=== PATIENT | male | born 1930 | race Caucasian/White ===

== ENCOUNTER 2016-11-01 11:15 | Inpatient (IN) | payer MEDICARE, MEDICAID ==
[2016-11-01] VITALS (17 sets, daily range): BP systolic 90–235; BP diastolic 43–101; PULSE 60–137; RESP 12–18; TEMP 97.9–102.4; O2SAT 86–100
[~2016-11-01] VITALS: Ht 180.3 cm; Wt 93.3 kg
[~2016-11-01 11:15] MED LIST: ALPR.25 PO; ALPR0.25 PO; BISA10R PR; CINN500C7 PO; DIGECAP6 PO; DUONI NEB; FEXO3TAB PO; FLEEENE3 PR; LISI-360 PO; MAGN30S PO; MELA3TAB23 PO; NORC10TA2 PO; PROT40TA PO; SERT25TA83 PO
[2016-11-01] MEDS ORDERED: SODIUM CHLOR 0.9% 1000 ML INJ 1,000 ML IV SCH (11:39)
[2016-11-01] MEDS ORDERED: SODIUM CHLORIDE 0.9% FLUSH 5 ML FLUSH IVF PRN (11:45)
[2016-11-01] MEDS ORDERED: ETOMIDATE 20 MG/10 ML VIAL ONE (11:57)
[2016-11-01] MEDS ORDERED: SUCCINYLCHOLINE CHLORIDE 200 MG/10 ML VIAL ONE (11:58)
[2016-11-01 12:15] LABS: AUTOMATED NEUTROPHIL # 21.5 TH/MM3 (1.8-7.7); BASOPHIL # 0.1 TH/MM3 (0-0.2); BASOPHIL % 0.2 % (0.0-2.0); HEMATOCRIT 50.5 % (39.0-51.0); HEMO FLAGS DIFF FINAL; LYMPH % 8.3 % (9.0-44.0); MEAN CELL VOLUME 97.9 FL (80.0-100.0); MEAN CORPUSCULAR HEMOGLOBIN 31.1 PG (27.0-34.0); MEAN CORPUSCULAR HGB CONC 31.8 % (32.0-36.0); MONO % 3.3 % (0.0-8.0); NEUT % 88.2 % (16.0-70.0); PLATELET COUNT 237 TH/MM3 (150-450); RED BLOOD COUNT 5.16 MIL/MM3 (4.50-5.90); RED CELL DISTRIBUTION WIDTH 16.2 % (11.6-17.2); WHITE BLOOD COUNT 24.4 TH/MM3 (4.0-11.0)
[2016-11-01] MEDS ORDERED: ETOMIDATE 20 MG/10 ML VIAL IV PUSH ONE (12:15)
[2016-11-01] MEDS ORDERED: SUCCINYLCHOLINE CHLORIDE 200 MG/10 ML VIAL IV PUSH ONE (12:15)
--- NOTE | 2016-11-01 12:20 | PD ---
HPI Chief Complaint: Altered Mental Status Time Seen by Provider: 11:37 Travel History International Travel<30 days: No Contact w/Intl Traveler<30days: No Traveled to known affect area: No History of Present Illness HPI 86yo M with PMH of alzheimer's dementia, SDH, DM, presents from [facility] [employer] for a few days of altered mental status and respiratory distress. As per who wants full code and everything done, pt has been having diarrhea and the assisted has not been taking care of him. States they took CXR yesterday and states he has pneumonia and started him on antibiotics. States that he normally talks and even though he has dementia, he is alert and have conversations with her. PFSH Past Medical History Hx Anticoagulant Therapy: Yes Alzheimer's Disease: Yes Arthritis: Yes Anxiety: Yes Heart Rhythm Problems: Yes (remote afib) Cancer: No Cardiovascular Problems: Yes (ATHEROSCLEROTIC HEART DISEASE, A-FIB ) High Cholesterol: No Chest Pain: No Congestive Heart Failure: No Cerebrovascular Accident: No Dementia: Yes Diabetes: Yes (TYPE 2) Endocrine: No Gastrointestinal Disorders: No Genitourinary: Yes Hypertension: Yes Immune Disorder: No Implanted Vascular Access Dvce: No Kidney Stones: Yes (possible) Musculoskeletal: Yes Psychiatric: Yes (dementia) Reproductive: No Respiratory: No Renal Failure: No Sickle Cell Disease: No Past Surgical History Abdominal Surgery: Yes (appendectomy) Appendectomy: Yes Ear Surgery: No Endocrine Surgery: No Eye Surgery: Yes (cataract) Genitourinary Surgery: Yes (TURP; ) Gynecologic Surgery: No Neurologic Surgery: No Oral Surgery: No Thoracic Surgery: No Other Surgery: Yes (appendectomy, TURP,RIGHT CAROTID ENDARTERECTOMY) Social History Alcohol Use: No Tobacco Use: No Substance Use: No Allergies-Medications (Allergen,Severity, Reaction): Coded Allergies: Ativan (Unverified Allergy, Severe, 11/01/16) Bactrim (Verified Allergy, Severe, hives, 11/01/16) Levaquin (Verified Allergy, Severe, 11/01/16) Morphine (Unverified Allergy, Severe, 11/01/16) Penicillin (Unverified Allergy, Severe, 11/01/16) Tuna (Unverified Allergy, Severe, 11/01/16) Hydrocortisone (Verified Allergy, Unknown, UNKNOWN, 11/01/16) Saccharin (Verified Allergy, Unknown, UNKNOWN , 11/01/16) Reported Meds & Prescriptions Reported Meds & Active Scripts Active Reported Milk of Magnesia Liq (Magnesium Hydroxide) 400 Mg/5 Ml Susp 30 Ml PO DAILY PRN Fleet Enema Rectal (Sodium Phosphates Rectal) 7-19 Gm/118 Ml Enem 118 Ml RECTAL DAILY PRN Digestive Enzyme (Digestive Enzymes) 1 Cap Cap 1 Cap PO TID Albuterol Neb (Albuterol Sulfate) 2.5 Mg/3 Ml Neb 2.5 Mg NEB Q4HR NEB While awake Cinnamon 500 Mg Cap 1,000 Mg PO TID Sertraline (Sertraline HCl) 50 Mg Tab 50 Mg PO BID Nuedexta 20-10 mg (Dextromethorphan HBr-Quinidine) 1 Cap Cap 1 Cap PO BID Donepezil 10 Mg Tab 10 Mg PO BID Melatonin 5 Mg Tab 3 Mg PO DAILY Lisinopril 10 Mg Tab 10 Mg PO DAILY Alprazolam 0.25 Mg Tab 0.25 Mg PO DAILY PRN Review of Systems Except as stated in HPI: all other systems reviewed are Neg Physical Exam Narrative GENERAL: 86yo M in acute distress. SKIN: Warm and dry. HEAD: Atraumatic. Normocephalic. EYES: Pupils equal and round. No scleral icterus. No injection or drainage. ENT: No nasal bleeding or discharge. Mucous membranes pink and moist. NECK: Trachea midline. No JVD. CARDIOVASCULAR: Tachycardic at 100bpm. No murmur appreciated. RESPIRATORY: Coarse breath sounds bilaterally. +Tachypneic. Saturating at 92% on 6L NC. GASTROINTESTINAL: Abdomen soft, non-tender, nondistended. Hepatic and splenic margins not palpable. MUSCULOSKELETAL: No obvious deformities. No clubbing. No cyanosis. No edema. NEUROLOGICAL: Pt attempts to speak but cannot verbalize words, cannot open eyes or lift his extremities. Withdraws from pain in bilateral lower ext. Attempts to squeeze hands bilaterally. Data Data Last Documented VS Vital Signs Date Time Temp Pulse Resp B/P Pulse Ox O2 Delivery O2 Flow Rate FiO2 11/01/16 13:00 102 12 104/64 97 Ventilator 60 11/01/16 12:00 102.4 6 Orders Electrocardiogram (11/01/16 ) Ammonia (11/01/16 11:39) Basic Metabolic Panel (Bmp) (11/01/16 11:39) Complete Blood Count With Diff (11/01/16 11:39) Creatine Kinase (Cpk) (11/01/16 11:39) Prothrombin Time / Inr (Pt) (11/01/16 11:39) Act Partial Throm Time (Ptt) (11/01/16 11:39) Troponin I (11/01/16 11:39) Thyroid Stimulating Hormone (11/01/16 11:39) Lactic Acid Sepsis Protocol (11/01/16 11:39) Urinalysis - C+S If Indicated (11/01/16 11:39) Arterial Blood Gas (Abg) (11/01/16 11:39) Blood Culture (11/01/16 11:39) Chest, Single Ap (11/01/16 11:39) Ct Brain W/O Iv Contrast(Rout) (11/01/16 11:39) Blood Glucose (11/01/16 11:39) Ecg Monitoring (11/01/16 11:39) Iv Access Insert/Monitor (11/01/16 11:39) Oximetry (11/01/16 11:39) Sodium Chloride 0.9% Flush (Ns Flush) (11/01/16 11:45) Sodium Chlor 0.9% 1000 Ml Inj (Ns 1000 M (11/01/16 11:39) Etomidate Inj (Amidate Inj) (11/01/16 11:57) Succinylcholine Inj (Quelicin Inj) (11/01/16 11:58) Etomidate Inj (Amidate Inj) (11/01/16 12:15) Succinylcholine Inj (Quelicin Inj) (11/01/16 12:15) Vancomycin Inj (Vancomycin Inj) (11/01/16 12:30) Aztreonam Inj (Azactam Inj) (11/01/16 12:30) Acetaminophen Supp (Tylenol Supp) (11/01/16 12:30) Chest, Single Ap (11/01/16 ) Propofol 1000 Mg/100 Ml Inj (Diprivan 10 (11/01/16 12:43) Consult Vascular Access Team (11/01/16 ) Sodium Chlor 0.9% 1000 Ml Inj (Ns 1000 M (11/01/16 13:00) Potassium Chloride (Kcl) (11/01/16 13:00) Potassium Chlor 20 Meq Premix (Kcl 20 Me (11/01/16 13:00) CKMB (11/01/16 12:00) CKMB% (11/01/16 12:00) Admit Order (Ed Use Only) (11/01/16 13:27) Labs Laboratory Tests Test 11/01/16 11/01/16 12:00 13:20 White Blood Count 24.4 TH/MM3 Red Blood Count 5.16 MIL/MM3 Hemoglobin 16.0 GM/DL Hematocrit 50.5 % Mean Corpuscular Volume 97.9 FL Mean Corpuscular Hemoglobin 31.1 PG Mean Corpuscular Hemoglobin 31.8 % Concent Red Cell Distribution Width 16.2 % Platelet Count 237 TH/MM3 Mean Platelet Volume 11.6 FL Neutrophils (%) (Auto) 88.2 % Lymphocytes (%) (Auto) 8.3 % Monocytes (%) (Auto) 3.3 % Eosinophils (%) (Auto) 0.0 % Basophils (%) (Auto) 0.2 % Neutrophils # (Auto) 21.5 TH/MM3 Lymphocytes # (Auto) 2.0 TH/MM3 Monocytes # (Auto) 0.8 TH/MM3 Eosinophils # (Auto) 0.0 TH/MM3 Basophils # (Auto) 0.1 TH/MM3 CBC Comment DIFF FINAL Differential Comment Sodium Level 174 MEQ/L Potassium Level 2.6 MEQ/L Chloride Level 142 MEQ/L Carbon Dioxide Level 20.9 MEQ/L Anion Gap 11 MEQ/L Blood Urea Nitrogen 102 MG/DL Creatinine 4.24 MG/DL Estimat Glomerular Filtration 13 ML/MIN Rate Random Glucose 210 MG/DL Lactic Acid Level 3.6 mmol/L Calcium Level 8.9 MG/DL Ammonia LESS THAN 10 MCMOL/L Total Creatine Kinase 1552 U/L Creatine Kinase MB 4.4 NG/ML Creatine Kinase MB % 0.3 % Troponin I 0.75 NG/ML Thyroid Stimulating Hormone 0.866 uIU/ML 3rd Gen Urine Color YELLOW Urine Turbidity HAZY Urine pH 5.5 Urine Specific [place] 1.020 Urine Protein 30 mg/dL Urine Glucose (UA) NEG mg/dL Urine Ketones NEG mg/dL Urine Occult Blood MOD Urine Nitrite NEG Urine Bilirubin NEG Urine Urobilinogen LESS THAN 2.0 MG/DL Urine Leukocyte Esterase NEG Urine RBC 2 /hpf Urine WBC 3 /hpf Urine Squamous Epithelial 2 /hpf Cells Urine Amorphous Sediment FEW Urine Bacteria OCC /hpf Urine Hyaline Casts 26 /lpf Urine Granular Casts 1 /lpf Urine Mucus FEW /lpf Microscopic Urinalysis Comment CATH-CULTURE IND Urine Eosinophils NONE SEEN /HPF Urine Osmolality 546 MOSM/KG Urine Random Creatinine 278.7 MG/DL Urine Random Sodium 18 MEQ/L MDM Medical Decision Making Medical Screen Exam Complete: Yes Emergency Medical Condition: Yes Interpretation(s) EKG: NSR 99bpm. Normal axis. +frequent PVCs. ST depression diffusely. +ST elevation aVR. Differential Diagnosis Dehydration vs. sepsis secondary to pneumonia vs. UTI vs. electrolyte abnormality vs. ICH Narrative Course 86yo M from assisted with altered mental status and respiratory distress. Pt febrile, tachycardic and appears very dehydrated. Temperature is 101.4. HR 100. Pt saturating at 92% on 6L NC. Pt is not following commands. is at bedside and states she wants everything done including endotracheal intubation. Pt cannot protect his airway at this time and intubated with RSI. Labs reviewed, leukocytosis at 24.4. Na is elevated at 174 likely secondary to dehydration. K is 2.6. Troponin is elevated at 0.75. EKG does show STD and T wave inversions. It can also be elevated secondary to sepsis. However, EKG is concerning for ischemic changes. CPK is 1552. Creatinine is acutely elevated at 4.24 secondary to rhabdomyolysis and dehydration. Pt given vancomycin and aztreonam empirically. Pt also received acetaminophen 650mg rectally and KCl 60mEq KCl by OG tube and 20mEq KCl IV, as well as NS IVF x2. Discussed with Dr. Hirsch and accepted to ICU. CXR showed left lower lobe. Critical Care Narrative Aggregate critical care time was 75 minutes. Time to perform other separately billable procedures was not included in the critical care time. My time did not include minutes spent treating any other patients simultaneously or on activities that did not directly contribute to the patient's treatment. The services I provided to this patient were to treat and/or prevent clinically significant deterioration that could result in: cardiovascular collapse and . I provided critical care services requiring my management, as noted below: Chart data review, documentation time, medication orders and management, vital sign assessments/reviewing monitor data, ordering and reviewing lab tests, ordering and interpreting/reviewing x-rays and diagnostic studies, care of the patient and discussion of the patient with the admitting physicians. Procedures Procedure Narrative The patient was put in optimal position for the procedure. Rapid sequence intubation was initiated by me using 20 milligrams of etomidate IV and 100milligrams of succinylcholine IV. The patient was intubated with a 8.0 cuffed endotracheal tube. Tube placement was confirmed by visualization of the tube and balloon passing through the cords, capnometry and subsequent chest x-ray. Breath sounds were equal and well aerated bilaterally postintubation. No breath sounds over stomach. Patient tolerated procedure well. Diagnosis Primary Impression: Hypernatremia Additional Impression: NAYE (acute kidney injury) Admitting Information Admitting Physician Requests: Admit Omayra Yang DO Nov 01, 2016 12:20
[2016-11-01] MEDS ORDERED: VANCOMYCIN INJ 1,100 MG in SODIUM CHLOR 0.9% 250 ML INJ 250 ML IV ONE (12:30)
[2016-11-01] MEDS ORDERED: ACETAMINOPHEN 650 MG SUPP RECTAL ONE (12:30)
[2016-11-01] MEDS ORDERED: AZTREONAM INJ 1,000 MG in SODIUM CHLORIDE 0.9% INJ 100 ML IV ONE (12:30)
[2016-11-01] MEDS ORDERED: PROPOFOL 1000 MG/100 ML INJ 100 ML ONE (12:43)
[2016-11-01 12:45] LABS: BICARBONATE 20.9 MEQ/L (21.0-32.0)
--- NOTE | 2016-11-01 12:47 | RADRPT ---
EXAM DATE/TIME: 11/01/2016 12:09 [facility] COMPARISON: CHEST SINGLE AP, April 18, 2015, 11:30. INDICATIONS : Shortness of breath. MEDICAL HISTORY : Hypertension. Myocardial infarction. A-fib SURGICAL HISTORY : Coronary artery stent. ENCOUNTER: Initial ACUITY: 2 days PAIN SCORE: Non-responsive. LOCATION: Bilateral chest FINDINGS: A single view of the chest demonstrates left retrocardiac infiltrate. Right lung clear. Heart normal in size. Osseous structures are intact. CONCLUSION: Left lower lobe/perihilar infiltrate. Chao Hensley MD on November 01, 2016 at 12:44 Board Certified Radiologist. This report was verified electronically.
[2016-11-01 12:50] LABS: POTASSIUM 2.6 MEQ/L (3.5-5.1)
[2016-11-01] MEDS ORDERED: SODIUM CHLOR 0.9% 1000 ML INJ 1,000 ML IV ONE ×3 (13:00→18:45)
[2016-11-01] MEDS ORDERED: POTASSIUM CHLOR 20 MEQ PREMIX 100 ML IV ONE (13:00)
[2016-11-01] MEDS ORDERED: POTASSIUM CHLORIDE 20 MEQ CONTROLLED RELEASE TAB PO ONE (13:00)
--- NOTE | 2016-11-01 13:07 | RADRPT ---
EXAM DATE/TIME: 11/01/2016 12:39 [facility] COMPARISON: CHEST SINGLE AP, November 01, 2016, 12:09. INDICATIONS : Evaluate ET tube placement. MEDICAL HISTORY : Hypertension. Myocardial infarction. A-fib SURGICAL HISTORY : Coronary artery stent. ENCOUNTER: Initial ACUITY: 1 day PAIN SCORE: Non-responsive. LOCATION: Bilateral chest FINDINGS: A single view of the chest is obtained. Endotracheal tube 4 cm above the veda. Minimal left basila r density. Right lung clear. Heart normal in size. The cardiomediastinal contours are unremarkable. Osseous structures are intact. CONCLUSION: Adequate placement of endotracheal tube. Chao Hensley MD on November 01, 2016 at 13:05 Board Certified Radiologist. This report was verified electronically.
[2016-11-01 13:13] LABS: CKMB 4.4 NG/ML (0.5-3.6)
[2016-11-01] MEDS ORDERED: PROPOFOL 1000 MG/100 ML INJ 100 ML IV SCH (13:30)
[2016-11-01 13:45] LABS: BACTERIA, URINE OCC /hpf; BLOOD, URINE MOD (NEG); GLUCOSE,URINE NEG (NEG); GRANULAR CAST, URINE 1 /lpf; HYALINE CAST, URINE 26 /lpf (RARE); KETONE, URINE NEG (NEG); MUCUS URINE FEW /lpf (OCC); NITRITE,URINE NEG (NEG); PH, URINE 5.5 (5.0-8.5); SQUAMOUS EPITHELIAL CELL URINE 2 /hpf (0-5); URINE COLOR YELLOW (YELLW/STRAW)
[2016-11-01] MEDS ORDERED: SENNOSIDES SYRUP 8.8 MG/5 ML CUP G-TUBE PRN (13:45)
[2016-11-01] MEDS ORDERED: SODIUM CHLORIDE 0.9% FLUSH 5 ML FLUSH IV FLUSH PRN (13:45)
[2016-11-01] MEDS ORDERED: MISCELLANEOUS NURSING INFORMATION XX SCH ×2 (13:45→14:00)
[2016-11-01] MEDS ORDERED: ONDANSETRON HCL 4 MG/2 ML VIAL IV PRN (13:45)
[2016-11-01] MEDS ORDERED: GLUCAGON 1 MG/ML VIAL OTHER PRN (13:45)
[2016-11-01] MEDS ORDERED: CHLORHEXIDINE GLUCONATE 2 % 1 PACK (2 CLOTHS) TOP PRN ×2 (13:45→14:00)
[2016-11-01 13:46] LABS: COMMENT (UR) CATH-CULTURE IND; CULTURE IF INDICATED CATH CULTURE IND
[2016-11-01 13:59] LABS: APTT (PATIENT) 25.7 SEC (24.3-30.1); INTERNATIONAL NORMALIZED RATIO 1.2 RATIO
[2016-11-01] MEDS ORDERED: Vancomycin Consult Pharmacy 1 EA OTHER SCH (14:00)
--- NOTE | 2016-11-01 14:00 | HHI.HP ---
[facility] Service Critical Care Medicine Primary Care Physician Unknown Admission Diagnosis Hypernatremia secondary to dehydration, pneumonia Diagnosis: (1) Acute respiratory failure Diagnosis: Principal (2) Ifovb-of-qdwnmys kidney injury Diagnosis: Principal (3) Lactic acidosis Diagnosis: Principal (4) Elevated troponin Diagnosis: Principal (5) Rhabdomyolysis Diagnosis: Principal (6) Hyperchloremia Diagnosis: Principal (7) Diabetes mellitus Diagnosis: Principal (8) Subdural hematoma caused by concussion Diagnosis: Principal (9) Acute hypernatremia Diagnosis: Principal (10) Alzheimer's dementia Diagnosis: Principal (11) HTN (hypertension) Diagnosis: Principal (12) Dementia Diagnosis: Principal (13) Leukocytosis Diagnosis: Principal (14) SDH (subdural hematoma) Diagnosis: Principal (15) History of BPH Diagnosis: Principal (16) Depression Diagnosis: Principal (17) Diarrhea Diagnosis: Principal (18) Pneumonia Diagnosis: Principal (19) Severe sepsis Diagnosis: Principal (20) History of lucien hole surgery Diagnosis: Principal Chief Complaint: Resident of [facility] with altered mental status Travel History International Travel<30 Days: No Contact w/Intl Traveler <30 Da: No Traveled to Known Affected Are: No Sepsis Criteria SIRS Criteria (2 or more): Temp > 100.9 or < 96.8, WBC > 60339, < 4000 or > 10 % bands Sepsis Criteria (SIRS+source): Infect source susp/known Severe Sepsis (+one): Lactate >2 Septic Shock Criteria: Lactic acid >=4 Multiple Organ Dysfunction Syn: Evidence -2 organs failing Criteria Outcome: Meets multiple organ dys. criteria History of Present Illness 86-year-old male. Full code. Resident of [facility]. Date of admission 11/01/2016. Past medical history includes hypertension , COPD, right subdural hematoma status post lucien hole, Alzheimer dementia, chronic kidney disease stage III, BPH, depression, chronic benzodiazepine use and diabetes. Patient presented to [place] ED with several day history of decline in function including generalized illness clean diarrhea, shortness of breath. Recently the patient was diagnosed coronary artery pneumonia and started on an antibiotic. Today, the patient presents lethargic/no unresponsive. Initially seen on 6 L nasal cannula. Laboratories revealed sodium 174. Creatinine is 4.1. White blood cell count 24,000. Chest x-ray revealed possible pneumonia source. UA is currently pending. Patient was emergently intubated using 20 mg etomidate 100 mg succinylcholine due to altered mental status/airway protection Review of Systems ROS Limitations: Intubated Past Family Social History Allergies: Coded Allergies: Ativan (Unverified Allergy, Severe, 11/01/16) Bactrim (Verified Allergy, Severe, hives, 11/01/16) Levaquin (Verified Allergy, Severe, 11/01/16) Morphine (Unverified Allergy, Severe, 11/01/16) Penicillin (Unverified Allergy, Severe, 11/01/16) Tuna (Unverified Allergy, Severe, 11/01/16) Hydrocortisone (Verified Allergy, Unknown, UNKNOWN, 11/01/16) Saccharin (Verified Allergy, Unknown, UNKNOWN , 11/01/16) Reported Medications Active Protonix (Pantoprazole Sodium) 40 Mg Tabdr 40 Mg PO DAILY 30 Days [place] 10-325 mg (Hydrocodone-Acetaminophen) 1 Tab Tab 1 Tab PO Q4H PRN 7 Days Reported Mucinex Allergy (Fexofenadine HCl) 180 Mg Tab 180 Mg PO Q12HR PRN Milk Of Magnesia (Magnesium Hydroxide) 30 Ml Susp 30 Ml PO DAILY PRN IF NO BM X 3 DAY Fleet Enema (Sodium Phosphates) Demetria 1 Ea DE DAILY PRN IF NO RESULTS FROM DULCOLAX Resp: Albuterol/Ipratropium 2.5 Mg/0.5 Mg (Albuterol/Ipratropium) 1 Amp Nebu 1 Ampule NEB Q6HR NEB PRN Dulcolax 10 Mg Supp (Bisacodyl) 10 Mg Supp 10 Mg DE DAILY PRN IF NO BM WITHIN 3 DAYS Alprazolam 0.25 Mg Tab 0.25 Mg PO Q6HR PRN Xanax 0.25 Mg (Alprazolam) Alprazolam 0.25 mg Tab 0.25 Mg PO Q12HR Cinnamon 500 Mg Cap 500 Mg PO DAILY@1700 Lisinopril 10 mg (Lisinopril) 10 Mg Tab 10 Mg PO DAILY Sertraline 25 mg (Sertraline HCl) 25 Mg Tab 25 Mg PO DAILY Digestive Enzymes Enzymes Cap 1 Cap PO TID Melatonin Cr (Melatonin) 3 Mg Tab 3 Mg PO HS Active Ordered Medications Reviewed in EMR Family History Mother with angina. Father with CVA history Social History Quit tobacco 6 decades ago. Remote EtOH use. Denies IV drug use. with 3 children. Resident [facility] Physical Exam Vital Signs Vital Signs Date Time Temp Pulse Resp B/P Pulse Ox O2 Delivery O2 Flow Rate FiO2 11/01/16 12:39 98 60 11/01/16 11:15 101.4 100 18 106/55 86 11/01/16 11:15 90 18 94 Nasal Cannula 6 11/01/16 11:15 96 18 152/68 94 Nasal Cannula 6 Physical Exam GENERAL: 86-year-old male, critically ill currently resting in bed in no acute distress SKIN: Warm and dry.abrasions on knees bilaterally HEAD: Atraumatic. Normocephalic. EYES: Left pupil is 2 mm and irregular. Right pupil is pinpoint in reactive to light. No scleral icterus. No injection or drainage. ENT: No nasal bleeding or discharge. Mucous membranes pink and moist. NECK: Trachea midline. No JVD. CARDIOVASCULAR: Regular rate and rhythm. S1, S2. No S4. Without murmur RESPIRATORY: Coarse crackles appreciated bilaterally with end expiratory wheeze. Breath sounds equal bilaterally. GASTROINTESTINAL: Abdomen soft, non-tender, nondistended. Hepatic and splenic margins not palpable. MUSCULOSKELETAL: Extremities without noted in peripheral edema. No obvious deformities. NEUROLOGICAL: Intubated. Positive gag. Positive corneal reflex. Downgoing toes. Does not withdraw to pain. Laboratory Laboratory Tests Test 11/01/16 12:00 White Blood Count 24.4 Red Blood Count 5.16 Hemoglobin 16.0 Hematocrit 50.5 Mean Corpuscular Volume 97.9 Mean Corpuscular Hemoglobin 31.1 Mean Corpuscular Hemoglobin 31.8 Concent Red Cell Distribution Width 16.2 Platelet Count 237 Mean Platelet Volume 11.6 Neutrophils (%) (Auto) 88.2 Lymphocytes (%) (Auto) 8.3 Monocytes (%) (Auto) 3.3 Eosinophils (%) (Auto) 0.0 Basophils (%) (Auto) 0.2 Neutrophils # (Auto) 21.5 Lymphocytes # (Auto) 2.0 Monocytes # (Auto) 0.8 Eosinophils # (Auto) 0.0 Basophils # (Auto) 0.1 CBC Comment DIFF FINAL Differential Comment Sodium Level 174 Potassium Level 2.6 Chloride Level 142 Carbon Dioxide Level 20.9 Anion Gap 11 Blood Urea Nitrogen 102 Creatinine 4.24 Estimat Glomerular Filtration 13 Rate Random Glucose 210 Lactic Acid Level 3.6 Calcium Level 8.9 Ammonia LESS THAN 10 Total Creatine Kinase 1552 Creatine Kinase MB 4.4 Creatine Kinase MB % 0.3 Troponin I 0.75 Thyroid Stimulating Hormone 0.866 3rd Gen Date/Time Procedure Status Source Growth 11/01/16 12:00 Aerobic Blood Culture Received Blood Peripheral Pending 11/01/16 12:00 Anaerobic Blood Culture Received Blood Peripheral Pending Result Diagram: 11/01/16 1200 11/01/16 1200 Imaging Last Impressions Chest X-Ray 11/01/16 1139 Signed Impressions: Service Date/Time: Tuesday, November 01, 2016 12:09 - CONCLUSION: Left lower lobe/perihilar infiltrate. Chao Hensley MD Assessment and Plan Assessment and Plan Neuro/Psych: Acute toxic metabolic encephalopathy Alzheimer's dementia Depression History of right subdural hematoma status post bur hole Chronic benzodiazepine use Chronic narcotic use History of insomnia Currently on propofol/fentanyl drips for sedation/analgesia while intubated RA SS -[address] head currently pending. Noted history of right subdural hematoma Patient is on Xanax 25 mg every 6 hours at alf for anxiety. This is been held Continue sertraline 5 mg by mouth daily for depression Holding melatonin 3 mg at night for insomnia CV: History of right CVA Hypertension History of atrial fibrillation currently normal sinus rhythm Lactic acidosis Elevated troponin eKG reveals sinus tachycardia with diffuse ST T changes throughout multiple leads likely related to dehydration/demand ischemia Cycle troponins Cardiac ordered Holding home medications lisinopril 10 mg. In light of hypotension/acute kidney injury Status post 2 L normal saline. Currently on one half normal saline at 125 cc an hour Resp: Acute hypoxemic respiratory failure ACV 14/500/5/60 Ventilator bundle Bronchodilator therapy every 6 hours and as needed Spontaneous breathing trials when indicated Chest x-ray reveals possible upper lobe infiltrate. GI: Diarrhea C. difficile pending NG tube is in place. Nothing by mouth status Protonix for GI prophylaxis. Protonix [address] daily at home CT abdomen/pelvis pending light of diarrhea : History of BPH status post TURP Masters has been placed for accurate I's and O's in a critically ill patient Endo: Diabetes mellitus type 2 Hyperglycemia of critical illness Sliding-scale insulin with Accu-Cheks every 6 hours to maintain euglycemia/ medum protocol Renal: Acute on chronic kidney injury Rhabdomyolysis Progressive crystalloid hydration. Recheck CPK Avoid nephrotoxic drugs Follow-up on renal ultrasound and urine electrolytes with eosinophils Heme: Leukocytosis Daily CBC/CMP. Monitor trends ID: Likely healthcare associated pneumonia Received vancomycin ED. Add aztreonam and Flagyl. Blood cultures 2, urine, sputum, influenza, urine Legionella and pneumococcal antigens ordered FEN: Hypernatremia Hyperchloridemia Hypopotassemia Status post 2 L normal saline. Currently on one half normal saline at 125 cc an hour. Free water flushes 250 cc every 6 hours. Serial sodiums every 6 hours. Given 30 milliequivalents potassium chloride MSK: History of left total knee arthroplasty PT evaluate and treat Access - Utilize peripheral IV. Central line if indicated Prophylaxis - GI - Protonix - DVT - SCD/heparin subcutaneous Critical Care: The total critical care time was 65 minutes. Time to perform other separately billable procedures was not included in the critical care time. Code Status Full code Discussed Condition With Dr. Yang/ED physician. ED RN.. Care plan discussed and all pertinent questions answered. Problem Qualifiers (1) Acute respiratory failure: Qualified Code: J96.00 - Acute respiratory failure, unspecified whether with hypoxia or hypercapnia (2) Rhabdomyolysis: Qualified Code: M62.82 - Non-traumatic rhabdomyolysis (3) Diabetes mellitus: Qualified Code: E11.9 - Type 2 diabetes mellitus without complication, without long-term current use of insulin (4) Subdural hematoma caused by concussion: Qualified Code: S06.5X0D - Subdural hematoma caused by concussion, without loss of consciousness, subsequent encounter (5) Alzheimer's dementia: Qualified Code: G30.9 - Alzheimer's dementia without behavioral disturbance, unspecified timing of dementia onset (6) HTN (hypertension): Qualified Code: I10 - Essential hypertension (7) Dementia: Qualified Code: G30.9 - Alzheimer's dementia without behavioral disturbance, unspecified timing of dementia onset (8) Leukocytosis: Qualified Code: D72.825 - Bandemia (9) Depression: Qualified Code: F32.9 - Depression, unspecified depression type (10) Diarrhea: Qualified Code: R19.7 - Diarrhea, unspecified type (11) Pneumonia: Qualified Code: J18.9 - Pneumonia of both lungs due to infectious organism, unspecified part of lung Carlos Hirsch MD Nov 01, 2016 13:59
[2016-11-01 14:11] LABS: LACTIC ACID GHOST NOT REPORTABLE
[2016-11-01] MEDS: PROPOFOL 1000 MG/100 ML INJ 100 ML IV SCH (14:20)
[2016-11-01] MEDS ORDERED: POTASSIUM CL 40 MEQ/30 ML LIQ UDC TUBE ONE (14:30)
[2016-11-01 14:53] LABS: BLOOD GAS CARBOXYHEMOGLOBIN 1.5 % (0-4); BLOOD GAS HCO3 16 mmol/L (22-26); BLOOD GAS METHEMOGLOBIN 2.3 % (0-2); BLOOD GAS O2 HGB SATURATION 90 % (90-100); BLOOD GAS OXYGEN CONTENT 17.5 Vol % (12.0-20.0); BLOOD GAS PCO2 27 mmHg (38-42); BLOOD GAS PO2 72 mmHG (61-120); BLOOD GAS TOTAL HGB 13.7 G/DL (12.0-16.0); TEMP CORR TO 98.6
[2016-11-01 14:54] LABS: CRITICAL VALUE YES
[2016-11-01 14:55] LABS: DRAW SITE LT BRACHIAL; FIO2 60 %; NUMBER OF ARTERIAL PUNCTURES 2; OXYGEN DEVICE AC/VT500/PEEP5/R12; STAT YES; ULNAR PULSE Y
[2016-11-01] MEDS ORDERED: DIGE1CAP2 PO (15:18)
[2016-11-01] MEDS ORDERED: CINN500C PO (15:18)
[2016-11-01] MEDS ORDERED: MILKSUS PO (15:18)
[2016-11-01] MEDS ORDERED: LISI10TA3 PO (15:18)
[2016-11-01] MEDS ORDERED: ALPR0.25 PO (15:18)
[2016-11-01] MEDS ORDERED: FLEEENE3 RECTAL (15:18)
[2016-11-01] MEDS ORDERED: SERT-132 PO (15:18)
[2016-11-01] MEDS ORDERED: DONE10TA7 PO (15:18)
[2016-11-01] MEDS ORDERED: NUED20CA PO (15:18)
[2016-11-01] MEDS ORDERED: ALBU0.08 NEB (15:18)
[2016-11-01] MEDS ORDERED: MELA5TAB15 PO (15:18)
--- NOTE | 2016-11-01 15:46 | RADRPT ---
EXAM DATE/TIME: 11/01/2016 15:09 [facility] COMPARISON: CT BRAIN W/O CONTRAST, October 12, 2015, 14:51. INDICATIONS : Decrease mentation for three days,now unressponsive. RADIATION DOSE: 69.16 CTDIvol (mGy) MEDICAL HISTORY : Dementia. Cardiovascular disease Hypertension.Renal disease SURGICAL HISTORY : Appendectomy. ENCOUNTER: Initial ACUITY: 3 days PAIN SCALE: Non-responsive LOCATION: cranial TECHNIQUE: Multiple contiguous axial images were obtained of the head. Using automated exposure control and adj ustment of the mA and/or kV according to patient size, radiation dose was kept as low as reasonably a chievable to obtain optimal diagnostic quality images. FINDINGS: There is marked central and cortical atrophy with dilatation of ventricular and sulcal spaces. Old b chavez ganglia lacunar infarcts. Areas of low-attenuation are seen throughout the periventricular white matter. Similar changes the brainstem There is no parenchymal hemorrhage, acute infarction or mass l esion identified. There are no extra-axial fluid collections appreciated. The posterior fossa is un remarkable with midline fourth ventricle. The portion of the orbits visualized are unremarkable. Min imal right maxillary sinus disease. CONCLUSION: 1. Cerebral atrophy and chronic ischemic small vessel vasculopathy. 2. Remote bilateral lacunar infarcts. Chao Hensley MD on November 01, 2016 at 15:43 Board Certified Radiologist. This report was verified electronically.
[2016-11-01] MEDS: RESP: ALBUTEROL 2.5 MG/IPRATROPIUM 0.5 MG NEB (SCH) INH ×2 (15:55→20:26)
[2016-11-01] MEDS: AZTREONAM INJ 1,000 MG in SODIUM CHLORIDE 0.9% INJ 100 ML IV SCH (16:00)
[2016-11-01] MEDS ORDERED: DILTIAZEM HCL 25 MG/5 ML VIAL IV ONE (16:15)
[2016-11-01] MEDS ORDERED: DILTIAZEM INJ 125 MG in SODIUM CHLORIDE 0.9% INJ 100 ML IV SCH (16:15)
--- NOTE | 2016-11-01 16:15 | RADRPT ---
EXAM DATE/TIME: 11/01/2016 15:12 [facility] COMPARISON: No previous studies available for comparison. INDICATIONS : Unresponsive, nausea. ORAL CONTRAST: No oral contrast ingested. RADIATION DOSE: 9.96 CTDIvol (mGy) MEDICAL HISTORY : Dementia. Cardiovascular disease Hypertension. Renal disease SURGICAL HISTORY : Appendectomy. ENCOUNTER: Initial ACUITY: 3 days PAIN SCALE: Non-responsive LOCATION: Abdomen TECHNIQUE: Volumetric scanning of the abdomen and pelvis was performed. Using automated exposure control and ad justment of the mA and/or kV according to patient size, radiation dose was kept as low as reasonably achievable to obtain optimal diagnostic quality images. FINDINGS: LOWER LUNGS: There is mild airspace consolidation in the lower lobes, left greater than right. Calcified granuloma is present in the right middle lobe. LIVER: Homogeneous density without lesion. There is no dilation of the biliary tree. No calcified gallston es. SPLEEN: Normal size without lesion. PANCREAS: Within normal limits. KIDNEYS: Normal in size and shape. There is no mass, stone, or hydronephrosis. ADRENAL GLANDS: Within normal limits. VASCULAR: There is severe atherosclerotic disease. Abdominal aorta is ectatic measuring up to 2.7 cm. BOWEL/MESENTERY: The stomach, small bowel, and colon demonstrate no acute abnormality. However, there is a segment of proximal to mid jejunum that is mildly dilated measuring up to 3.6 cm. There is no free intraperiton eal air or fluid. There is severe sigmoid diverticulosis. Nasogastric tube tip is in the stomach. ABDOMINAL WALL: Within normal limits. RETROPERITONEUM: There is no lymphadenopathy. BLADDER: Decompressed with Masters catheter in place. REPRODUCTIVE: Within normal limits. INGUINAL: There is no lymphadenopathy or hernia. MUSCULOSKELETAL: There are degenerative changes of the lumbar spine. CONCLUSION: 1. No acute finding is identified within the abdomen or pelvis. There is a segment of mildly dilated mid jejunum in the left abdomen but otherwise there are no findings present to suggest bowel obstruct ion. 2. Severe atherosclerotic disease. 3. Airspace consolidation in both lower lobes, left greater than right. Arvind Kyle MD on November 01, 2016 at 16:07 Board Certified Radiologist. This report was verified electronically.
[2016-11-01 16:20] LABS: MAGNESIUM 2.9 MG/DL (1.5-2.5)
[2016-11-01] MEDS ORDERED: SODIUM CHLOR 0.45% 1000 ML INJ 1,000 ML IV ONE ×2 (16:30)
[2016-11-01] MEDS ORDERED: LACTATED RINGER'S 1000 ML INJ 1,000 ML IV ONE (16:30)
--- NOTE | 2016-11-01 16:54 | EC ---
Study Study Date:11/01/2016 STUDY CONCLUSIONS SUMMARY - Procedure narrative: Transthoracic echocardiography. Image quality was suboptimal. The study was technically limited due to poor acoustic window availability. Scanning was performed from the parasternal, apical, and subcostal acoustic windows. - Left ventricle: The cavity size was normal. Wall thickness was increased increased in a pattern of mild to moderate LVH. Systolic function was normal. The estimated ejection fraction was in the range of 55% to 60%. Wall motion was normal; there were no regional wall motion abnormalities. If LV function is below 40, please consider prescribing an ACEI or ARB or document rationale for non-use. PROCEDURE DATA STUDY STATUS: Elective. Procedure: Transthoracic echocardiography. Image quality was suboptimal. The study was technically limited due to poor acoustic window availability. Scanning was performed from the parasternal, apical, and subcostal acoustic windows. Study completion: The patient tolerated the procedure well. Transthoracic echocardiography. M-mode, complete 2D, complete spectral Doppler, and color Doppler. Height: Height: 71in. Weight: Weight: 159.7lb. Body mass index: BMI: 22.3kg/m^2. Body surface area: BSA: 1.92m^2. Patient status: Inpatient. CARDIAC ANATOMY LEFT VENTRICLE: The cavity size was normal. Wall thickness was increased increased in a pattern of mild to moderate LVH. Systolic function was normal. The estimated ejection fraction was in the range of 55% to 60%. Wall motion was normal; there were no regional wall motion abnormalities. AORTIC VALVE: Trileaflet; normal thickness leaflets. Doppler: Transvalvular velocity was within the normal range. There was no stenosis. No regurgitation. AORTA: Aortic root: The aortic root was normal in size. MITRAL VALVE: Structurally normal valve. Doppler: Transvalvular velocity was within the normal range. There was no evidence for stenosis. No regurgitation. LEFT ATRIUM: The atrium was normal in size. RIGHT VENTRICLE: The cavity size was normal. Wall thickness was normal. PULMONIC VALVE: Doppler: Transvalvular velocity was within the normal range. There was no evidence for stenosis. No regurgitation. TRICUSPID VALVE: Structurally normal valve. Doppler: Transvalvular velocity was within the normal range. Trace regurgitation. PULMONARY ARTERY: The main pulmonary artery was normal-sized. Systolic pressure was within the normal range. RIGHT ATRIUM: The atrium was normal in size. PERICARDIUM: There was no pericardial effusion. SYSTEMIC VEINS: Inferior vena cava: The vessel was normal in size. Patient weight: 159.7lb _Ejection fraction:_ 65-75% _Fractional shortening:_ 32% up to 5Kg 5-11.5Kg 11.6-22.9Kg 23-45Kg 45-57Kg Aortic Root 7-13 <17 13-22 17-27 17-27 LA diam 6-13 <23 24-38 33-47 37-40 RVID 10-17 7-15 7-15 7-18 8-17 LVIDd 12-22 <32 24-38 33-47 37-40 LVPW 2-4 3-6 5-7 6-8 7-8 IVS 2-4 3-6 5-7 6-8 7-8 BASIC MEASUREMENTS ADULT NORMAL Left ventricle LV internal dimension, ED 40.6 mm 37-56 LV internal dimension, ES 26.4 mm Fractional shortening 35 % 29-45 LV posterior wall, ED *16 mm 6-11 Septal/posterior wall ratio, ED 1 Relative wall thickness, ED *0.79 <0.45 Volume, ED, Teichholz 72.5 ml Volume, ES, Teichholz 25.6 ml Ejection fraction, Teichholz 64.7 % 64-83 Stroke volume, Teichholz 46.9 ml Volume index, ED, Teichholz 38 ml/m^2 Volume index, ES, Teichholz 13 ml/m^2 Stroke index, Teichholz 24.4 ml/m^2 Wall mass 263.3 g Wall mass index 137.1 g/m^2 Mass/height 1.46 g/cm Ventricular septum Septal thickness, ED 16 mm DOPPLER MEASUREMENTS ADULT NORMAL Tricuspid valve Regurgitant peak velocity 176 cm/s Peak RV-RA gradient, S 12 mm Hg Maximal regurgitant velocity 176 cm/s Pulmonic valve Peak velocity, S 117 cm/s LEGEND: Mean values are shown as u=mean value. Asterisk (*) washburn values outside specified normal range. Prepared and signed by Sam Bobby [id number]
[2016-11-01] MEDS ORDERED: CINNAMON 500 MG PO SCH (17:00)
[2016-11-01] MEDS: metroNIDAZOLE 500 MG INJ 100 ML IV SCH (17:28)
[2016-11-01] MEDS: SODIUM CHLOR 0.45% 1000 ML INJ 1,000 ML IV SCH ×2 (17:29→19:54)
[2016-11-01] MEDS: FREE WATER G-TUBE SCH (17:32)
[2016-11-01] MEDS: HEPARIN SODIUM - SQ 10,000 UNITS/ML VIAL SQ SCH (17:32)
[2016-11-01] MEDS: ARTIFICIAL TEARS OPTH SOLN 15 ML BTL EACH EYE SCH (17:32)
--- NOTE | 2016-11-01 17:33 | RADRPT ---
EXAM DATE/TIME: 11/01/2016 16:47 [facility] COMPARISON: No previous studies available for comparison. INDICATIONS : Increased BUN/Creatinine. MEDICAL HISTORY : Alzheimer's Hypertension. Myocardial infarction. Dementia. Kidney stones. Head trauma. A-Fib. UTI. Di abetes. BPH. SURGICAL HISTORY : Appendectomy. Carotid endarterectomy. Coronary artery stent. TURP. ENCOUNTER: Initial ACUITY: 1 day PAIN SCORE: Nonresponsive. LOCATION: Bilateral flank MEASUREMENTS: RIGHT KIDNEY: 11.7 x 5.3 x 5.1 cm LEFT KIDNEY: 10.2 x 5.8 x 4.8 cm FINDINGS: RIGHT KIDNEY: Renal cortex is normal in thickness and increased echotexture. No hydronephrosis, stone, or mass. LEFT KIDNEY: Renal cortex is normal in thickness and increased echotexture. No hydronephrosis, stone, or mass. BLADDER: Decompressed by Masters catheter. CONCLUSION: 1. Kidneys are slightly echogenic which can be seen with medical renal disease. 2. Urinary bladder decompressed by Masters catheter. Chao Hensley MD on November 01, 2016 at 17:29 Board Certified Radiologist. This report was verified electronically.
[2016-11-01] MEDS: INSULIN NovoLIN REGULAR SUPPLEMENTAL SCALE SQ SCH (17:43)
[2016-11-01] MEDS ORDERED: ALBUMIN HUMAN 5% 25 GM/500 ML BOTTLE IV ONE (18:45)
[2016-11-01] MEDS: SODIUM CHLORIDE 0.9% FLUSH 5 ML FLUSH IV FLUSH SCH (19:54)
[2016-11-01] MEDS: CHLORHEXIDINE 0.12% (ORAL KIT) 15 ML CUP MT SCH (19:54)
[2016-11-01] MEDS: fentaNYL DRIP 250 ML IV SCH (19:55)
[2016-11-01] MEDS: MIDAZOLAM 100 MG/ML INJ 100 ML IV SCH (19:56)
[2016-11-01] MEDS ORDERED: MELATONIN 3 MG PO SCH (21:00)
[2016-11-01 22:18] LABS: INDIRECT BILIRUBIN 0.4 MG/DL (0.0-0.8); POTASSIUM 3.1 MEQ/L (3.5-5.1); TOTAL BILIRUBIN ADULT 0.5 MG/DL (0.2-1.0)
[2016-11-01 22:39] LABS: CKMB 6.5 NG/ML (0.5-3.6)
[2016-11-02] VITALS (18 sets, daily range): BP systolic 113–148; BP diastolic 54–82; PULSE 62–79; RESP 14–17; TEMP 98–99.9; O2SAT 93–99
[2016-11-02] MEDS: metroNIDAZOLE 500 MG INJ 100 ML IV SCH ×3 (00:24→17:13)
[2016-11-02 01:46] LABS: C. DIFF EPI 027 PRESUMPTIVE POSITIVE (NEGATIVE)
[2016-11-02 01:47] LABS: C. DIFF TOXIN PCR POSITIVE (NEGATIVE)
[2016-11-02 02:46] LABS: ALT (GPT) 26 U/L (12-78); ANION GAP 9 MEQ/L (5-15); AST (GOT) 77 U/L (15-37); BICARBONATE 17.9 MEQ/L (21.0-32.0); BLOOD UREA NITROGEN 83 MG/DL (7-18); CHLORIDE 136 MEQ/L (98-107); GLOMERULAR FILTRATION RATE 18 ML/MIN (>89); MAGNESIUM 2.2 MG/DL (1.5-2.5); POTASSIUM 3.3 MEQ/L (3.5-5.1)
[2016-11-02 02:47] LABS: SODIUM (NA) 163 MEQ/L (136-145)
[2016-11-02 03:06] LABS: ALKALINE PHOSPHATASE 69 U/L (45-117); CREATINE KINASE 2623 U/L (39-308); TOTAL BILIRUBIN ADULT 0.7 MG/DL (0.2-1.0)
[2016-11-02 03:08] LABS: CALCIUM-PROTEIN CORRECTED 7.3 MG/DL (8.5-10.1)
[2016-11-02 03:24] LABS: CKMB 7.7 NG/ML (0.5-3.6)
[2016-11-02] MEDS: HEPARIN SODIUM - SQ 10,000 UNITS/ML VIAL SQ SCH ×2 (03:57→17:13)
[2016-11-02] MEDS: CHLORHEXIDINE GLUCONATE 2 % 1 PACK (2 CLOTHS) TOP SCH ×2 (03:57)
[2016-11-02] MEDS: SODIUM CHLOR 0.45% 1000 ML INJ 1,000 ML IV SCH ×3 (03:57→22:15)
[2016-11-02] MEDS: AZTREONAM INJ 1,000 MG in SODIUM CHLORIDE 0.9% INJ 100 ML IV SCH ×2 (03:57→17:12)
[2016-11-02 04:17] LABS: AUTOMATED NEUTROPHIL # 14.9 TH/MM3 (1.8-7.7); BASOPHIL # 0.1 TH/MM3 (0-0.2); BASOPHIL % 0.3 % (0.0-2.0); EOSINOPHIL # 0.1 TH/MM3 (0-0.4); EOSINOPHIL % 0.4 % (0.0-4.0); HEMATOCRIT 33.5 % (39.0-51.0); HEMO FLAGS DIFF FINAL; LYMPH % 13.1 % (9.0-44.0); LYMPHOCYTE # 2.4 TH/MM3 (1.0-4.8); MEAN CELL VOLUME 99.1 FL (80.0-100.0); MEAN CORPUSCULAR HGB CONC 32.3 % (32.0-36.0); MONO % 4.9 % (0.0-8.0); NEUT % 81.3 % (16.0-70.0); PLATELET COUNT 135 TH/MM3 (150-450); RED BLOOD COUNT 3.38 MIL/MM3 (4.50-5.90); RED CELL DISTRIBUTION WIDTH 16.6 % (11.6-17.2); WHITE BLOOD COUNT 18.4 TH/MM3 (4.0-11.0)
[2016-11-02] MEDS: RESP: ALBUTEROL 2.5 MG/IPRATROPIUM 0.5 MG NEB (SCH) INH ×4 (04:22→20:36)
[2016-11-02 04:23] LABS: APTT (PATIENT) 34.6 SEC (24.3-30.1); INTERNATIONAL NORMALIZED RATIO 1.2 RATIO; PROTHROMBIN TIME - PATIENT 13.7 SEC (9.8-11.6)
[2016-11-02] MEDS: INSULIN NovoLIN REGULAR SUPPLEMENTAL SCALE SQ SCH ×4 (06:00→17:11)
[2016-11-02] MEDS: FREE WATER G-TUBE SCH ×4 (06:00→18:00)
[2016-11-02] MEDS ORDERED: POTASSIUM CL 40 MEQ/30 ML LIQ UDC PO ONE (06:45)
[2016-11-02] MEDS: CHLORHEXIDINE 0.12% (ORAL KIT) 15 ML CUP MT SCH ×2 (08:00→20:07)
[2016-11-02] MEDS: ARTIFICIAL TEARS OPTH SOLN 15 ML BTL EACH EYE SCH ×3 (09:00→18:00)
[2016-11-02] MEDS: SERTRALINE HCL 50 MG TAB PO SCH (09:33)
[2016-11-02] MEDS: SODIUM CHLORIDE 0.9% FLUSH 5 ML FLUSH IV FLUSH SCH ×2 (09:34→20:07)
[2016-11-02] MEDS: PANTOPRAZOLE SODIUM 40 MG VIAL IV SCH (09:34)
--- NOTE | 2016-11-02 13:51 | HHI.CCPN ---
Subjective Remarks/Hospital Course 86-year-old male. Full code. Resident of [facility]. Date of admission 11/01/2016. Past medical history includes hypertension , COPD, right subdural hematoma status post lucien hole, Alzheimer dementia, chronic kidney disease stage III, BPH, depression, chronic benzodiazepine use and diabetes. Patient presented to [facility] ED with several day history of decline in function including generalized illness clean diarrhea, shortness of breath. Recently the patient was diagnosed coronary artery pneumonia and started on an antibiotic. Today, the patient presents lethargic/no unresponsive. Initially seen on 6 L nasal cannula. Laboratories revealed sodium 174. Creatinine is 4.1. White blood cell count 24,000. Chest x-ray revealed possible pneumonia source. UA is currently pending. Patient was emergently intubated using 20 mg etomidate 100 mg succinylcholine due to altered mental status/airway protection Subjective 11/02: Afebrile. Adequate urine output. Currently on sedation vacation on CPAP trial. C. difficile positive noted. Objective Vital Signs Date Time Temp Pulse Resp B/P Pulse Ox O2 Delivery O2 Flow Rate FiO2 11/02/16 13:13 97 40 11/02/16 10:00 71 11/02/16 04:00 98.0 16 114/54 11/01/16 15:20 Ventilator 11/01/16 12:20 6.00 Intake and Output 11/01/16 11/01/16 11/02/16 08:00 16:00 00:00 Intake Total 2080 ml Output Total 700 ml Balance 1380 ml Result Diagram: 11/02/16 0344 11/02/16 0225 Other Results Microbiology Date/Time Procedure Status Source Growth 11/01/16 16:03 Influenza Types A,B Antigen (JAKOB) - Final Complete Nasal Aspirate NEGATIVE FOR FLU A AND B ANTIGEN.... 11/01/16 16:03 Gram Stain - Final Resulted Sputum Endotracheal 11/01/16 16:03 Sputum Culture Resulted Sputum Endotracheal Pending 11/01/16 13:20 Urine Culture - Preliminary Resulted Urine Catheterized Urine NO GROWTH IN 24 HOURS. 11/01/16 13:20 Legionella Antigen - Final Complete Urine Catheterized Urine PRESUMPTIVE NEGATIVE FOR LEGIONELLA P... 11/01/16 13:20 Streptococcus pneumoniae Antigen (M - Final Complete Urine Catheterized Urine PRESUMPTIVE NEGATIVE FOR STREPTOCOCCU... 11/01/16 12:00 Aerobic Blood Culture - Preliminary Resulted Blood Peripheral NO GROWTH IN 1 DAY 11/01/16 12:00 Anaerobic Blood Culture - Preliminary Resulted Blood Peripheral NO GROWTH IN 1 DAY Imaging Last Impressions Head CT 11/01/16 1139 Signed Impressions: Service Date/Time: Tuesday, November 01, 2016 15:09 - CONCLUSION: 1. Cerebral atrophy and chronic ischemic small vessel vasculopathy. 2. Remote bilateral lacunar infarcts. Chao Hensley MD Chest X-Ray 11/01/16 1139 Signed Impressions: Service Date/Time: Tuesday, November 01, 2016 12:09 - CONCLUSION: Left lower lobe/perihilar infiltrate. Chao Hensley MD Renal Ultrasound 11/01/16 0000 Signed Impressions: Service Date/Time: Tuesday, November 01, 2016 16:47 - CONCLUSION: 1. Kidneys are slightly echogenic which can be seen with medical renal disease. 2. Urinary bladder decompressed by Masters catheter. Chao Hensley MD Abdomen/Pelvis CT 11/01/16 0000 Signed Impressions: Service Date/Time: Tuesday, November 01, 2016 15:12 - CONCLUSION: 1. No acute finding is identified within the abdomen or pelvis. There is a segment of mildly dilated mid jejunum in the left abdomen but otherwise there are no findings present to suggest bowel obstruction. 2. Severe atherosclerotic disease. 3. Airspace consolidation in both lower lobes, left greater than right. Arvind Kyle MD Objective Remarks GENERAL: 86-year-old male, critically ill currently resting in bed in no acute distress SKIN: Warm and dry.abrasions on knees bilaterally and sacral decubitus ulcer/ regimen stage I HEAD: Atraumatic. Normocephalic. EYES: Left pupil is 2 mm and irregular. Right pupil is pinpoint in reactive to light. No scleral icterus. No injection or drainage. ENT: No nasal bleeding or discharge. Mucous membranes pink and moist. NECK: Trachea midline. No JVD. CARDIOVASCULAR: Regular rate and rhythm. S1, S2. No S4. Without murmur RESPIRATORY: Coarse crackles appreciated bilaterally with end expiratory wheeze. Breath sounds equal bilaterally. GASTROINTESTINAL: Abdomen soft, non-tender, nondistended. Hepatic and splenic margins not palpable. MUSCULOSKELETAL: Extremities without noted in peripheral edema. No obvious deformities. NEUROLOGICAL: Intubated. Positive gag. Positive corneal reflex. Downgoing toes. Does not withdraw to pain. Urinary Catheter: Yes Assessment to: Continue Masters insert reason: Prolonged Immobilization Vascular Central Line Catheter: No Assessment to: Continue A/P Assessment and Plan Neuro/Psych: Acute toxic metabolic encephalopathy Alzheimer's dementia Depression History of right subdural hematoma status post bur hole Chronic benzodiazepine use Chronic narcotic use History of insomnia Currently on propofol/fentanyl drips for sedation/analgesia while intubated RA SS -[address] head 11/02 revealed bilateral lacunar basal ganglia infarct/old with ventriculomegaly Patient is on Xanax 0.25 mg every 6 hours at longterm for anxiety. This is been held Continue sertraline 25 mg by mouth daily for depression Holding melatonin 3 mg at night for insomnia CV: History of right CVA Hypertension History of atrial fibrillation currently normal sinus rhythm Lactic acidosis Elevated troponin eKG reveals sinus tachycardia with diffuse ST T changes throughout multiple leads likely related to dehydration/demand ischemia Cycle troponins. Peaked at 1.16 Echo revealed EF 55-60%. Holding home medications lisinopril 10 mg. In light of hypotension/acute kidney injury Currently on one half normal saline at 125 cc an hour Resp: Acute hypoxemic respiratory failure ACV 14/500/5/40 - CPAP 8/5 and 40% Ventilator bundle Bronchodilator therapy every 6 hours and as needed Spontaneous breathing trials when indicated Chest x-ray reveals possible upper lobe infiltrate. GI: Diarrhea/C. difficile positive Nothing by mouth status Protonix for GI prophylaxis. Protonix [address] home CT abdomen/pelvis revealed no obstruction or possible some mild dilatation the mid jejunum. Atherosclerotic vascular disease : History of BPH status post TURP Masters has been placed for accurate I's and O's in a critically ill patient Endo: Diabetes mellitus type 2 Hyperglycemia of critical illness Sliding-scale insulin with Accu-Cheks every 6 hours to maintain euglycemia/ medum protocol Renal: Acute on chronic kidney injury Rhabdomyolysis Progressive crystalloid hydration. Recheck CPK in a.m. Slightly elevated Avoid nephrotoxic drugs Follow-up on renal ultrasound no hydronephrosis. Possibly early medical renal disease. Negative urine eosinophils Heme: Leukocytosis Daily CBC/CMP. Monitor trends ID: Likely healthcare associated pneumonia C. difficile positive Received vancomycin ED. Add aztreonam and Flagyl. Day #2 IV Flagyl/by mouth vancomycin for C. difficile day #1 Blood cultures 2, urine, sputum, influenza, urine Legionella and pneumococcal antigens ordered FEN: Hypernatremia Hyperchloridemia Hypopotassemia Status post 2 L normal saline. Currently on one half normal saline at 125 cc an hour. Free water flushes 250 cc every 6 hours. Serial sodiums every 6 hours. Given 30 milliequivalents potassium chloride. Recheck now MSK: History of left total knee arthroplasty PT evaluate and treat Access - Utilize peripheral IV. Central line if indicated Prophylaxis - GI - Protonix - DVT - SCD/heparin subcutaneous Critical Care: The total critical care time was 35 minutes. Time to perform other separately billable procedures was not included in the critical care time. Carlos Hirsch MD Nov 02, 2016 13:50
[2016-11-02] MEDS: VANCOMYCIN 500 MG VIAL (FOR ORAL USE ONLY) PO SCH ×2 (17:13→20:07)
[2016-11-02] MEDS: BENEPROTEIN POWDER 1 PACK G-TUBE SCH (18:00)
[2016-11-02 19:25] LABS: POTASSIUM 3.8 MEQ/L (3.5-5.1)
--- NOTE | 2016-11-02 22:35 | EKG ---
Date Performed: 11/01/2016 Time Performed: 13:09:44 PTAGE: 86 years EKG: SINUS TACHYCARDIA MARKED ST DEPRESSION PREVIOUS TRACING : 11/01/2016 11.28 Compared to prior tracing no significant change DOCTOR: Elodia Flores Interpretating Date/Time 11/02/2016 22:33:08
--- NOTE | 2016-11-02 22:39 | EKG ---
Date Performed: 11/01/2016 Time Performed: 11:28:30 PTAGE: 86 years EKG: Sinus rhythm WITH FREQUENT VENTRICULAR PREMATURE COMPLEXES MARKED ST DEPRESSION PREVIOUS TRACING : 04/29/2015 08.35 Compared to the previous tracing, new significant ST depression present DOCTOR: Elodia Flores Interpretating Date/Time 11/02/2016 22:38:57
[2016-11-03] VITALS (24 sets, daily range): BP systolic 65–147; BP diastolic 38–69; PULSE 59–300; RESP 14–22; TEMP 98–100.4; O2SAT 96–100
[2016-11-03] MEDS: metroNIDAZOLE 500 MG INJ 100 ML IV SCH ×3 (00:23→15:39)
[2016-11-03] MEDS: HEPARIN SODIUM - SQ 10,000 UNITS/ML VIAL SQ SCH ×2 (03:57→15:38)
[2016-11-03] MEDS: AZTREONAM INJ 1,000 MG in SODIUM CHLORIDE 0.9% INJ 100 ML IV SCH ×2 (03:57→15:38)
[2016-11-03] MEDS: CHLORHEXIDINE GLUCONATE 2 % 1 PACK (2 CLOTHS) TOP SCH ×2 (03:58)
[2016-11-03] MEDS: RESP: ALBUTEROL 2.5 MG/IPRATROPIUM 0.5 MG NEB (SCH) INH ×4 (04:07→21:23)
[2016-11-03] MEDS: INSULIN NovoLIN REGULAR SUPPLEMENTAL SCALE SQ SCH ×4 (05:58→17:57)
[2016-11-03] MEDS: SODIUM CHLOR 0.45% 1000 ML INJ 1,000 ML IV SCH ×3 (05:58→21:06)
[2016-11-03] MEDS: FREE WATER G-TUBE SCH ×4 (05:58→17:57)
[2016-11-03] MEDS: CHLORHEXIDINE 0.12% (ORAL KIT) 15 ML CUP MT SCH ×2 (08:00→20:56)
[2016-11-03] MEDS: BENEPROTEIN POWDER 1 PACK G-TUBE SCH ×3 (09:00→17:57)
[2016-11-03] MEDS: ARTIFICIAL TEARS OPTH SOLN 15 ML BTL EACH EYE SCH ×3 (09:00→17:57)
[2016-11-03] MEDS: PROPOFOL 1000 MG/100 ML INJ 100 ML IV SCH ×2 (10:39→14:48)
[2016-11-03] MEDS: VANCOMYCIN 500 MG VIAL (FOR ORAL USE ONLY) PO SCH ×4 (10:40→21:11)
[2016-11-03] MEDS: SODIUM CHLORIDE 0.9% FLUSH 5 ML FLUSH IV FLUSH SCH ×2 (10:40→20:56)
[2016-11-03] MEDS: PANTOPRAZOLE SODIUM 40 MG VIAL IV SCH (10:40)
[2016-11-03] MEDS: SERTRALINE HCL 50 MG TAB PO SCH (10:40)
[2016-11-03] MEDS ORDERED: DILTIAZEM INJ 125 MG in SODIUM CHLORIDE 0.9% INJ 100 ML IV SCH (11:00)
--- NOTE | 2016-11-03 11:20 | MG ---
cc: LYLE HOPSON M.D. Lab No: [id number] Date: 11/03/2016 Age: 86 Sex: M Race: __ REFERRING PHYSICIAN Dr. Hirsch TECHNIQUE Photic stimulation only, intubated, awake. The patient withdrew to be tactile stimulation. Follows commands. CT showed atrophy lacunes. INDICATIONS Admitted for change in mental status, respiratory distress, history of head trauma on anticoagulation therapy. MEDICATIONS 1. Antibiotics 2. Protonix DESCRIPTION OF RECORD Some overall mild slowing 6 Hz consistent with theta frequency, quite a bit of artifact seen from muscle movement. EKG is all artifact. Photic stimulation has a mild posterior driving response and no evidence of any epileptic activity. IMPRESSION Mild background slowing may be due to mild encephalopathy, no evidence of any epileptiform features, a lot of artifact however. Clinical correlation. MD ZHANE Wright/JOSEPH /11:00 AM /11:08 AM
[2016-11-03 12:06] LABS: HEMATOCRIT 37.1 % (39.0-51.0); MEAN CELL VOLUME 95.1 FL (80.0-100.0); MEAN CORPUSCULAR HEMOGLOBIN 31.8 PG (27.0-34.0); MEAN CORPUSCULAR HGB CONC 33.5 % (32.0-36.0); RED CELL DISTRIBUTION WIDTH 16.1 % (11.6-17.2)
[2016-11-03 12:07] LABS: PLATELET COUNT 124 TH/MM3 (150-450); WHITE BLOOD COUNT 17.5 TH/MM3 (4.0-11.0)
[2016-11-03 12:09] LABS: HEMO FLAGS AUTO DIFF
[2016-11-03 12:25] LABS: BICARBONATE 14.5 MEQ/L (21.0-32.0); MAGNESIUM 2.1 MG/DL (1.5-2.5); POTASSIUM 3.8 MEQ/L (3.5-5.1); TOTAL BILIRUBIN ADULT 0.4 MG/DL (0.2-1.0)
[2016-11-03 12:57] LABS: CALCIUM-PROTEIN CORRECTED 7.4 MG/DL (8.5-10.1)
--- NOTE | 2016-11-03 13:05 | PD.PROCEDR ---
Central Line Procedure REASON FOR PROCEDURE Central venous access PROCEDURE PERFORMED Central line placement: Left IJ CVL CONSENT Informed consent for procedure was obtained. The risks and benefits of the procedure were discussed to include but limited to bleeding, clot formation, infection, and even . ANESTHESIA Local injection of 1% Lidocaine DESCRIPTION OF THE PROCEDURE The patient was placed in supine, mild Trendelenburg position. The area was exposed and cleansed with ChloraPrep, times two. Large sterile drape was used to cover the patient, with the site exposed, under sterile conditions including cap, face mask, sterile gown, and sterile gloves. On single attempt, the introducer needle was inserted with negative pressure in syringe and venous flash was obtained. The guide wire was then advanced without any restriction and the needle was removed. The dilator was used without any complications. Using Seldinger technique the triple-lumen catheter was advanced over the guide wire to a depth of 20 centimeters. The guide wire was removed. All ports were aspirated with dark venous blood return and flushed easily with sterile saline. All ports were capped. Antibiotic disc was placed around central line at puncture site. The central line was secured to the skin with two interrupted 2.0 silk sutures. The area was bandaged with sterile see-through central line bandage. RADIOLOGICAL DATA Ultrasound guidance was used to locate left internal jugular vein. Doppler/ color flow was used to confirm venous flow. COMPLICATIONS: No apparent complications ESTIMATED BLOOD LOSS: Less than 1 cc. Carlos Hirsch MD Nov 03, 2016 13:05
[2016-11-03 13:09] LABS: BANDS 4 % (0-6); EOSINOPHILS 5 % (0-4); NEUTROPHIL # MANUAL DIFF 14.9 TH/MM3 (1.8-7.7); PLATELET ESTIMATE SMEAR LOW (NORMAL); PLATELET MORPHOLOGY NORMAL (NORMAL); POLYS (SEG NEUTROPHILS) 81 % (16-70); SCAN/DIFF FINAL DIFF MANUAL; WBC DIFF SAMPLE 100
[2016-11-03] MEDS: SODIUM CHLORIDE 0.9% FLUSH 5 ML FLUSH IVF SCH (13:15)
[2016-11-03] MEDS ORDERED: SODIUM CHLORIDE 0.9% FLUSH 5 ML FLUSH IVF PRN (13:15)
[2016-11-03] MEDS: ACETAMINOPHEN 325 MG TAB PO PRN (13:27)
[2016-11-03] MEDS: fentaNYL DRIP 250 ML IV SCH (13:28)
--- NOTE | 2016-11-03 13:31 | HHI.CCPN ---
Subjective Remarks/Hospital Course 86-year-old male. Full code. Resident of [facility]. Date of admission 11/01/2016. Past medical history includes hypertension , COPD, right subdural hematoma status post lucien hole, Alzheimer dementia, chronic kidney disease stage III, BPH, depression, chronic benzodiazepine use and diabetes. Patient presented to [place] ED with several day history of decline in function including generalized illness clean diarrhea, shortness of breath. Recently the patient was diagnosed coronary artery pneumonia and started on an antibiotic. Today, the patient presents lethargic/no unresponsive. Initially seen on 6 L nasal cannula. Laboratories revealed sodium 174. Creatinine is 4.1. White blood cell count 24,000. Chest x-ray revealed possible pneumonia source. UA is currently pending. Patient was emergently intubated using 20 mg etomidate 100 mg succinylcholine due to altered mental status/airway protection 11/02: Afebrile. Adequate urine output. Currently on sedation vacation on CPAP trial. C. difficile positive noted. Subjective 11/03: Tmax 99.9. Currently afebrile. Positive BM. Tolerating tube feeding. Squeezes hand to command on sedation vacation but became more agitated and back in A. fib. EEG revealed swelling but no epileptic activity. MRI brain pending. Objective Vital Signs Date Time Temp Pulse Resp B/P Pulse Ox O2 Delivery O2 Flow Rate FiO2 11/03/16 12:06 97 35 11/03/16 06:00 90 11/03/16 04:00 99.1 22 147/69 11/01/16 15:20 Ventilator 11/01/16 12:20 6.00 Intake and Output 11/02/16 11/02/16 11/03/16 08:00 16:00 00:00 Intake Total 1807 ml 1100 ml 594 ml Output Total 530 ml 550 ml 550 ml Balance 1277 ml 550 ml 44 ml Result Diagram: 11/03/16 1153 11/03/16 1153 Other Results Microbiology Date/Time Procedure Status Source Growth 11/01/16 16:03 Influenza Types A,B Antigen (JAKOB) - Final Complete Nasal Aspirate NEGATIVE FOR FLU A AND B ANTIGEN.... 11/01/16 16:03 Gram Stain - Final Complete Sputum Endotracheal 11/01/16 16:03 Sputum Culture - Final Complete Klebsiella Pneumoniae Staphylococcus Aureus 11/01/16 13:20 Urine Culture - Final Complete Urine Catheterized Urine NO GROWTH IN 48 HOURS. 11/01/16 13:20 Legionella Antigen - Final Complete Urine Catheterized Urine PRESUMPTIVE NEGATIVE FOR LEGIONELLA P... 11/01/16 13:20 Streptococcus pneumoniae Antigen (M - Final Complete Urine Catheterized Urine PRESUMPTIVE NEGATIVE FOR STREPTOCOCCU... 11/01/16 12:00 Aerobic Blood Culture - Preliminary Resulted Blood Peripheral NO GROWTH IN 2 DAYS 11/01/16 12:00 Anaerobic Blood Culture - Preliminary Resulted Blood Peripheral NO GROWTH IN 2 DAYS Imaging Last [address] 11/01/16 1139 Signed Impressions: Service Date/Time: Tuesday, November 01, 2016 15:09 - CONCLUSION: 1. Cerebral atrophy and chronic ischemic small vessel vasculopathy. 2. Remote bilateral lacunar infarcts. Chao Hensley MD Chest X-Ray 11/01/16 1139 Signed Impressions: Service Date/Time: Tuesday, November 01, 2016 12:09 - CONCLUSION: Left lower lobe/perihilar infiltrate. Chao Hensley MD Renal Ultrasound 11/01/16 0000 Signed Impressions: Service Date/Time: Tuesday, November 01, 2016 16:47 - CONCLUSION: 1. Kidneys are slightly echogenic which can be seen with medical renal disease. 2. Urinary bladder decompressed by Masters catheter. Chao Hensley MD Chest X-Ray 11/01/16 0000 Signed Impressions: Service Date/Time: Tuesday, November 01, 2016 12:39 - CONCLUSION: Adequate placement of endotracheal tube. Chao Hensley MD Abdomen/Pelvis CT 11/01/16 0000 Signed Impressions: Service Date/Time: Tuesday, November 01, 2016 15:12 - CONCLUSION: 1. No acute finding is identified within the abdomen or pelvis. There is a segment of mildly dilated mid jejunum in the left abdomen but otherwise there are no findings present to suggest bowel obstruction. 2. Severe atherosclerotic disease. 3. Airspace consolidation in both lower lobes, left greater than right. Arvind Kyle MD Objective Remarks GENERAL: 86-year-old male, critically ill currently resting in bed in no acute distress SKIN: Warm and dry.abrasions on knees bilaterally and sacral decubitus ulcer/ regimen stage I HEAD: Atraumatic. Normocephalic. EYES: Left pupil is 2 mm and irregular. Right pupil is pinpoint in reactive to light. No scleral icterus. No injection or drainage. ENT: No nasal bleeding or discharge. Mucous membranes pink and moist. NECK: Trachea midline. No JVD. CARDIOVASCULAR: Regular rate and rhythm. S1, S2. No S4. Without murmur RESPIRATORY: Coarse crackles appreciated bilaterally with end expiratory wheeze. Breath sounds equal bilaterally. GASTROINTESTINAL: Abdomen soft, non-tender, nondistended. Hepatic and splenic margins not palpable. MUSCULOSKELETAL: Extremities without noted in peripheral edema. No obvious deformities. NEUROLOGICAL: Intubated. Positive gag. Positive corneal reflex. Downgoing toes. Withdraws to pain today and all 4 extremities. Urinary Catheter: Yes Assessment to: Continue Vascular Central Line Catheter: Yes Assessment to: Continue Date of Insertion: Nov 03, 2016 Line: Central Venous Catheter Side: Left Location: Internal, Jugular A/P Assessment and Plan Neuro/Psych: Acute toxic metabolic encephalopathy Alzheimer's dementia Depression History of right subdural hematoma status post bur hole Chronic benzodiazepine use Chronic narcotic use History of insomnia Currently on propofol/fentanyl drips for sedation/analgesia while intubated RA SS -[address] head 11/02 revealed bilateral lacunar basal ganglia infarct/old with ventriculomegaly Patient is on Xanax 0.25 mg every 6 hours at detention for anxiety. This is been held Continue sertraline 25 mg by mouth daily for depression Holding melatonin 3 mg at night for insomnia CV: History of right CVA Hypertension History of atrial fibrillation currently normal sinus rhythm Lactic acidosis Elevated troponin eKG reveals sinus tachycardia with diffuse ST T changes throughout multiple leads likely related to dehydration/demand ischemia Cycle troponins. Peaked at 1.16. Currently 0.83 Echo revealed EF 55-60%. Holding home medications lisinopril 10 mg. In light of hypotension/acute kidney injury Currently on sterile water with 1 ampule sodium bicarbonate 150 cc an hour Serial lactates until cleared Resp: Acute hypoxemic respiratory failure ACV 14/500/5/40 - CPAP 8/5 and 40% Ventilator bundle Bronchodilator therapy every 6 hours and as needed Spontaneous breathing trials when indicated Chest x-ray reveals possible left upper lobe infiltrate. GI: Diarrhea/C. difficile positive Currently on Nepro goal 50 cc an hour Protonix for GI prophylaxis. Protonix [address] daily at home CT abdomen/pelvis revealed no obstruction or possible some mild dilatation the mid jejunum. Atherosclerotic vascular disease : History of BPH status post TURP Masters has been placed for accurate I's and O's in a critically ill patient Endo: Diabetes mellitus type 2 Hyperglycemia of critical illness Sliding-scale insulin with Accu-Cheks every 6 hours to maintain euglycemia/ medum protocol Renal: Acute on chronic kidney injury Rhabdomyolysis Progressive crystalloid hydration. Avoid nephrotoxic drugs Renal ultrasound no hydronephrosis. Possibly early medical renal disease. Negative urine eosinophils Heme: Leukocytosis with downward trend Thrombocytopenia Normocytic anemia Daily CBC/CMP. Monitor trends ID: Likely healthcare associated pneumonia - Pseudomonas and staph aureus C. difficile positive Received vancomycin ED. Add aztreonam and Flagyl. Day # IV Flagyl/by mouth vancomycin for C. difficile day #2 11/01 - Blood cultures 2 no growth, urine no growth, sputum revealed Pseudomonas/staph aureus, influenza negative, urine Legionella and pneumococcal antigens negative ID consult for antibiotic management FEN: Hypernatremia Hyperchloridemia Hypopotassemia Status post 2 L normal saline. Currently on sterile water with one ampule sodium bicarbonate 150 cc an hour. Free water flushes 250 cc every 6 hours. Serial sodiums every 6 hours. MSK: History of left total knee arthroplasty PT evaluate and treat Access -Left IJ CVL day 1 Prophylaxis - GI - Protonix - DVT - SCD/heparin subcutaneous Critical Care: The total care time was 35 minutes. Time to perform other separately billable procedures was not included in the critical care time. Carlos Hirsch MD Nov 03, 2016 13:31
--- NOTE | 2016-11-03 13:43 | RADRPT ---
EXAM DATE/TIME: 11/03/2016 13:09 [facility] COMPARISON: CT ABDOMEN & PELVIS W/O CONTRAST, November 01, 2016, 15:12. CHEST SINGLE AP, November 01, 2016, 12:3 9. INDICATIONS : Post central line placement. MEDICAL HISTORY : Hypertension. Myocardial infarction. Afib. SURGICAL HISTORY : Cardiac stent. ENCOUNTER: Initial ACUITY: 1 day PAIN SCORE: Non-responsive. LOCATION: Bilateral chest FINDINGS: Portable AP view of the chest demonstrates a normal-sized cardiac silhouette. Left IJ central line chow s been placed and the distal tip is in the superior vena cava. Nasogastric tube courses beyond the GE junction. Endotracheal tube tip is at the aortic knob level. There is hazy opacity at the left lung base. No pneumothorax is visualized. CONCLUSION: 1. Left IJ line distal tip is in the SVC. No pneumothorax is visualized. 2. Persistent hazy opacity at the left lung base may represent atelectasis or consolidation. Arvind Kyle MD on November 03, 2016 at 13:40 Board Certified Radiologist. This report was verified electronically.
[2016-11-03] MEDS: WATER STERILE FOR IV SCH ×2 (14:48→20:56)
[2016-11-03] MEDS: SODIUM BICARBONATE IV SCH ×2 (14:48→20:56)
[2016-11-03] MEDS ORDERED: VANCOMYCIN INJ 1,250 MG in SODIUM CHLOR 0.9% 250 ML INJ 250 ML IV ONE (15:00)
--- NOTE | 2016-11-03 19:04 | RADRPT ---
EXAM DATE/TIME: 11/03/2016 18:28 [facility] COMPARISON: MRI BRAIN W/O CONTRAST, April 19, 2015, 16:26. CT BRAIN W/O CONTRAST, November 01, 2016, 15:09. INDICATIONS : Altered mental status. CVA. MEDICAL HISTORY : Hypertension. Diabetes mellitus type 2. Chronic obstructive pulmonary disease. SURGICAL HISTORY : Appendectomy. Carotid endarterectomy. Prostatectomy. Right knee. ENCOUNTER: Subsequent ACUITY: 2 day PAIN SCORE: Nonresponsive. LOCATION: head. TECHNIQUE: Multiplanar, multisequence MRI of the brain was performed without contrast. FINDINGS: The calvarium is intact with mild ethmoid sinus mucoperiosteal thickening. Mastoids are symmetrically aerated. Intracranially midline structures and major anatomic landmarks are correctly situated. Ther e is evidence of cerebral atrophy with chronic microvascular ischemic demyelinization in deep white m atter periventricular as well as remote lacunar infarctions in the basal ganglion. There is no eviden ce of diffusion abnormality and no evidence intracranial hemorrhage and cerebral defect or mass. CONCLUSION: Stable chronic changes as described above. No acute intracranial process. Antolin Pulido MD on November 03, 2016 at 19:00 Board Certified Radiologist. This report was verified electronically.
[2016-11-03] MEDS: DEXTROSE 50% IN WATER 50 ML VIAL(D50) IV PUSH PRN ×3 (20:06→21:16)
[2016-11-03] MEDS ORDERED: AMIODARONE 150 MG/D5W 97 ML BOLUS 10 MINUTES IV ONE ×2 (20:45)
[2016-11-03] MEDS ORDERED: TERBUTALINE INJ 1 MG/ML AMP SQ PRN (20:45)
[2016-11-03] MEDS: AMIODARONE INJ 450 MG in DEXTROSE 5% IN WATE(EXCEL) INJ 241 ML IV SCH ×2 (21:11)
[2016-11-03] MEDS ORDERED: PHENYLEPHRINE INJ 40 MG in DEXTROSE 5% IN WATE 500 ML INJ 496 ML IV SCH ×2 (21:45)
--- NOTE | 2016-11-03 22:07 | PD.ID.CON ---
History of Present Illness Service ID Consult Requested By Dr Hirsch Reason for Consult Pneumonia, C.diff Primary Care Physician Unknown Diagnoses: History of Present Illness 86 yo male with Alzheimer's dementita presented with mental status change fever up to 102.4 and diarrhea He has leukocytosis Intubated, placed on vent thick secretions Watery diarrhea BP dorderline, but not on pressors, tolerating tube feeds UOP is adequate W/u positive for PNA and C.diff 027 strain Starte d on abx His w/u included CXR, brain MRI, head CT abd/pelvis CT and shwoed airspace consolidation in both lower lobes, left greater than right. No PAD HAND acute findings Review of Systems ROS Limitations: Clinical Condition, Intubated, Altered Mental Status Past Family Social History Allergies: Coded Allergies: Ativan (Unverified Allergy, Severe, 11/01/16) Bactrim (Verified Allergy, Severe, hives, 11/01/16) Levaquin (Verified Allergy, Severe, 11/01/16) Morphine (Unverified Allergy, Severe, 11/01/16) Penicillin (Unverified Allergy, Severe, 11/01/16) Tuna (Unverified Allergy, Severe, 11/01/16) Hydrocortisone (Verified Allergy, Unknown, UNKNOWN, 11/01/16) Saccharin (Verified Allergy, Unknown, UNKNOWN , 11/01/16) Past Medical History hypertension, COPD, right subdural hematoma status post lucien hole, Alzheimer dementia, chronic kidney disease stage III, BPH, depression, diabetes. Past Surgical History TURP appey R CEA Active Ordered Medications Medications where reviewed in EMR Antibiotics Include: azactam vanco po vanco IV flagyl IV Family History Non-Contributory. Social History No Tobacco. No ETOH. No Illicit Drugs. Physical Exam Vital Signs Vital Signs Date Time Temp Pulse Resp B/P Pulse Ox O2 Delivery O2 Flow Rate FiO2 11/03/16 21:25 99 35 11/03/16 18:59 100 100 11/03/16 18:00 112 11/03/16 16:00 40 11/03/16 16:00 59 11/03/16 16:00 98.2 118 16 108/55 97 11/03/16 15:43 98 35 11/03/16 14:00 66 11/03/16 12:06 97 35 11/03/16 12:00 40 11/03/16 12:00 125 11/03/16 12:00 100.4 125 18 87/53 97 11/03/16 11:25 97 35 11/03/16 10:00 95 11/03/16 09:05 98 35 11/03/16 09:05 35 11/03/16 08:00 86 11/03/16 08:00 40 11/03/16 08:00 99.9 86 19 117/59 98 11/03/16 06:00 90 11/03/16 04:07 99 35 11/03/16 04:00 79 11/03/16 04:00 99.1 79 22 147/69 99 11/03/16 04:00 40 11/03/16 02:00 78 11/03/16 01:31 99 40 11/03/16 00:00 40 11/03/16 00:00 80 11/03/16 00:00 99.9 80 18 134/62 98 11/02/16 22:00 79 Physical Exam CONSTITUTIONAL/GENERAL: This is an adequately nourished patient, in no apparent distress. TUBES/LINES/DRAINS: SKIN: No jaundice, rashes, or lesions. Skin temperature appropriate. Not diaphoretic. HEAD: Atraumatic. Normocephalic. EYES: Pupils equal and round and reactive. Extraocular motions intact. No scleral icterus. No injection or drainage. Fundi not examined. ENT: Hearing unable to assess. Nose without bleeding or purulent drainage. Orally intubated NECK: Trachea midline. Supple, nontender. No palpable thyroid enlargement or nodularity. CARDIOVASCULAR: Regular rate and rhythm without murmurs, gallops, or rubs. No JVD. Peripheral pulses not palpale on bl feet RESPIRATORY/CHEST: Symmetric, unlabored respirations. Clear to auscultation. Breath sounds equal bilaterally. No wheezes, rales, or rhonchi. GASTROINTESTINAL: Abdomen soft, non-tender ( no reation to palpation), moderately distended. No hepato-splenomegaly, or palpable masses. No guarding. Bowel sounds diminished Incontinent of brown liquid stool GENITOURINARY: Without palpable bladder distension. Masters catheter in place. MUSCULOSKELETAL: Extremities without clubbing, or edema. No joint tenderness or effusion noted. No calf tenderness. No mottling or clubbing. + cyanosis, delayed refill on toes and fingertips LYMPHATICS: No palpable cervical or supraclavicular adenopathy. NEUROLOGICAL: Sedated, unresponsives. PSYCHIATRIC: unable to assess Laboratory Laboratory Tests Test 11/03/16 11/03/16 11/03/16 01:04 11:53 17:50 Sodium Level 162 156 156 White Blood Count 17.5 Red Blood Count 3.90 Hemoglobin 12.4 Hematocrit 37.1 Mean Corpuscular Volume 95.1 Mean Corpuscular Hemoglobin 31.8 Mean Corpuscular Hemoglobin 33.5 Concent Red Cell Distribution Width 16.1 Platelet Count 124 Mean Platelet Volume 11.7 Neutrophils (%) (Auto) Lymphocytes (%) (Auto) Monocytes (%) (Auto) Eosinophils (%) (Auto) Basophils (%) (Auto) Neutrophils # (Auto) Lymphocytes # (Auto) Monocytes # (Auto) Eosinophils # (Auto) Basophils # (Auto) CBC Comment AUTO DIFF Differential Total Cells 100 Counted Neutrophils % (Manual) 81 Band Neutrophils % 4 Lymphocytes % 7 Monocytes % 3 Eosinophils % 5 Neutrophils # (Manual) 14.9 Differential Comment FINAL DIFF MANUAL Platelet Estimate LOW Platelet Morphology Comment NORMAL Red Cell Morphology Comment NORMAL Potassium Level 3.8 Chloride Level 133 Carbon Dioxide Level 14.5 Anion Gap 9 Blood Urea Nitrogen 65 Creatinine 2.61 Estimat Glomerular Filtration 23 Rate Random Glucose 91 Lactic Acid Level 3.8 Calcium Level 6.7 Protein Corrected Calcium 7.4 Phosphorus Level 2.1 Magnesium Level 2.1 Total Bilirubin 0.4 Aspartate Amino Transf 100 (AST/SGOT) Alanine Aminotransferase 34 (ALT/SGPT) Alkaline Phosphatase 84 Total Protein 5.6 Albumin 1.9 Random Vancomycin Level 7.1 Date/Time Procedure Status Source Growth 11/01/16 16:03 Influenza Types A,B Antigen (JAKOB) - Final Complete Nasal Aspirate NEGATIVE FOR FLU A AND B ANTIGEN.... 11/01/16 16:03 Gram Stain - Final Complete Sputum Endotracheal 11/01/16 16:03 Sputum Culture - Final Complete Klebsiella Pneumoniae Staphylococcus Aureus 11/01/16 13:20 Urine Culture - Final Complete Urine Catheterized Urine NO GROWTH IN 48 HOURS. 11/01/16 13:20 Legionella Antigen - Final Complete Urine Catheterized Urine PRESUMPTIVE NEGATIVE FOR LEGIONELLA P... 11/01/16 13:20 Streptococcus pneumoniae Antigen (M - Final Complete Urine Catheterized Urine PRESUMPTIVE NEGATIVE FOR STREPTOCOCCU... 11/01/16 12:00 Aerobic Blood Culture - Preliminary Resulted Blood Peripheral NO GROWTH IN 2 DAYS 11/01/16 12:00 Anaerobic Blood Culture - Preliminary Resulted Blood Peripheral NO GROWTH IN 2 DAYS Result Diagram: 11/03/16 1153 11/03/16 1750 Imaging Last Impressions Chest X-Ray 11/03/16 1302 Signed Impressions: Service Date/Time: October 13:09 - CONCLUSION: 1. Left IJ line distal tip is in the SVC. No pneumothorax is visualized. 2. Persistent hazy opacity at the left lung base may represent atelectasis or consolidation. Arvind Kyle MD Brain MRI 11/03/16 0000 Signed Impressions: Service Date/Time: October 18:28 - CONCLUSION: Stable chronic changes as described above. No acute intracranial process. Antolin Pulido MD Head CT 11/01/16 1139 Signed Impressions: Service Date/Time: Tuesday, November 01, 2016 15:09 - CONCLUSION: 1. Cerebral atrophy and chronic ischemic small vessel vasculopathy. 2. Remote bilateral lacunar infarcts. Chao Hensley MD Renal Ultrasound 11/01/16 0000 Signed Impressions: Service Date/Time: Tuesday, November 01, 2016 16:47 - CONCLUSION: 1. Kidneys are slightly echogenic which can be seen with medical renal disease. 2. Urinary bladder decompressed by Masters catheter. Chao Hensley MD Abdomen/Pelvis CT 11/01/16 0000 Signed Impressions: Service Date/Time: Tuesday, November 01, 2016 15:12 - CONCLUSION: 1. No acute finding is identified within the abdomen or pelvis. There is a segment of mildly dilated mid jejunum in the left abdomen but otherwise there are no findings present to suggest bowel obstruction. 2. Severe atherosclerotic disease. 3. Airspace consolidation in both lower lobes, left greater than right. Arvind Kyle MD Assessment and Plan Assessment and Plan PNA, Klebsiella, MSSA Acute VDRF Hypervirlent strain of C.diff Multiple abx allergies, including PCN, Levaquine, bactrim, sustantially limiting aailbale abx choice, though it appears from EMR that pt had CFTX and cefazoline uneventfully in 2015 - cont curent abx for now - monitor blood clx untill final - monitor WBC - monito clinically Discussed Condition With Aletha Bird MD Nov 03, 2016 22:07
[2016-11-04] VITALS (14 sets, daily range): BP systolic 99–117; BP diastolic 48–70; PULSE 66–76; RESP 14–20; TEMP 98.2–101; O2SAT 93–97
[2016-11-04] MEDS: metroNIDAZOLE 500 MG INJ 100 ML IV SCH ×4 (02:36→23:33)
[2016-11-04] MEDS: SODIUM BICARBONATE IV SCH (03:18)
[2016-11-04] MEDS: WATER STERILE FOR IV SCH (03:18)
[2016-11-04] MEDS: CHLORHEXIDINE GLUCONATE 2 % 1 PACK (2 CLOTHS) TOP SCH ×2 (04:00)
[2016-11-04] MEDS: RESP: ALBUTEROL 2.5 MG/IPRATROPIUM 0.5 MG NEB (SCH) INH ×4 (04:34→19:43)
[2016-11-04] MEDS: HEPARIN SODIUM - SQ 10,000 UNITS/ML VIAL SQ SCH ×2 (04:41→18:40)
[2016-11-04] MEDS: AZTREONAM INJ 1,000 MG in SODIUM CHLORIDE 0.9% INJ 100 ML IV SCH ×2 (04:42→18:36)
[2016-11-04] MEDS: fentaNYL DRIP 250 ML IV SCH (05:36)
[2016-11-04] MEDS: FREE WATER G-TUBE SCH ×5 (05:36→23:33)
[2016-11-04] MEDS: AMIODARONE INJ 450 MG in DEXTROSE 5% IN WATE(EXCEL) INJ 241 ML IV SCH ×2 (05:45)
[2016-11-04] MEDS: DEXTROSE 50% IN WATER 50 ML VIAL(D50) IV PUSH PRN ×4 (05:47→23:38)
[2016-11-04] MEDS: INSULIN NovoLIN REGULAR SUPPLEMENTAL SCALE SQ SCH ×5 (05:47→23:33)
[2016-11-04] MEDS ORDERED: PHARMACY ORDERED LAB XX ONE (06:00)
[2016-11-04 06:24] LABS: AUTOMATED NEUTROPHIL # 10.8 TH/MM3 (1.8-7.7); BASOPHIL % 0.4 % (0.0-2.0); EOSINOPHIL # 0.6 TH/MM3 (0-0.4); EOSINOPHIL % 4.2 % (0.0-4.0); HEMATOCRIT 31.5 % (39.0-51.0); HEMO FLAGS DIFF FINAL; MEAN CELL VOLUME 96.2 FL (80.0-100.0); MEAN CORPUSCULAR HGB CONC 32.3 % (32.0-36.0); MONO % 4.1 % (0.0-8.0); NEUT % 83.3 % (16.0-70.0); PLATELET COUNT 128 TH/MM3 (150-450); RED BLOOD COUNT 3.27 MIL/MM3 (4.50-5.90); RED CELL DISTRIBUTION WIDTH 15.5 % (11.6-17.2)
[2016-11-04 06:35] LABS: INTERNATIONAL NORMALIZED RATIO 1.2 RATIO
[2016-11-04 07:13] LABS: BICARBONATE 19.2 MEQ/L (21.0-32.0); MAGNESIUM 1.8 MG/DL (1.5-2.5); TOTAL BILIRUBIN ADULT 0.5 MG/DL (0.2-1.0)
[2016-11-04 07:19] LABS: CALCIUM-PROTEIN CORRECTED 7.4 MG/DL (8.5-10.1); POTASSIUM 2.6 MEQ/L (3.5-5.1)
[2016-11-04] MEDS: VANCOMYCIN 500 MG VIAL (FOR ORAL USE ONLY) PO SCH ×4 (08:50→21:16)
[2016-11-04] MEDS: SERTRALINE HCL 50 MG TAB PO SCH (08:51)
[2016-11-04] MEDS: PANTOPRAZOLE SODIUM 40 MG VIAL IV SCH (08:51)
[2016-11-04] MEDS ORDERED: POTASSIUM CHLORIDE INJ 40 MEQ in SODIUM CHLORID 0.9% 500 ML INJ 500 ML IV-CENTRAL ONE (09:00)
[2016-11-04] MEDS: ARTIFICIAL TEARS OPTH SOLN 15 ML BTL EACH EYE SCH ×2 (09:00→13:00)
[2016-11-04] MEDS ORDERED: POTASSIUM PHOSPHATE INJ 30 MMOL in SODIUM CHLOR 0.9% 250 ML INJ 250 ML IV ONE (09:00)
[2016-11-04] MEDS: BENEPROTEIN POWDER 1 PACK G-TUBE SCH ×3 (09:00→18:00)
[2016-11-04] MEDS ORDERED: CALCIUM GLUCONATE INJ 1 GM in DEXTROSE 5% IN WATER 100ML INJ 100 ML IV ONE ×2 (09:00)
[2016-11-04] MEDS: SODIUM CHLORIDE 0.9% FLUSH 5 ML FLUSH IV FLUSH SCH ×2 (09:05→21:00)
[2016-11-04] MEDS: SODIUM CHLORIDE 0.9% FLUSH 5 ML FLUSH IVF SCH (09:05)
[2016-11-04] MEDS: CHLORHEXIDINE 0.12% (ORAL KIT) 15 ML CUP MT SCH ×2 (09:05→23:37)
[2016-11-04] MEDS ORDERED: SODIUM BICARBONATE IV SCH (09:30)
[2016-11-04] MEDS ORDERED: WATER STERILE FOR IV SCH (09:30)
[2016-11-04] MEDS ORDERED: VANCOMYCIN 1,500 MG/NS 500 ML IV ONE ×2 (10:00)
--- NOTE | 2016-11-04 10:25 | HHI.CCPN ---
Subjective Remarks/Hospital Course 86-year-old male. Full code. Resident of [facility]. Date of admission 11/01/2016. Past medical history includes hypertension , COPD, right subdural hematoma status post lucien hole, Alzheimer dementia, chronic kidney disease stage III, BPH, depression, chronic benzodiazepine use and diabetes. Patient presented to [place] ED with several day history of decline in function including generalized illness clean diarrhea, shortness of breath. Recently the patient was diagnosed coronary artery pneumonia and started on an antibiotic. Today, the patient presents lethargic/no unresponsive. Initially seen on 6 L nasal cannula. Laboratories revealed sodium 174. Creatinine is 4.1. White blood cell count 24,000. Chest x-ray revealed possible pneumonia source. UA is currently pending. Patient was emergently intubated using 20 mg etomidate 100 mg succinylcholine due to altered mental status/airway protection 11/02: Afebrile. Adequate urine output. Currently on sedation vacation on CPAP trial. C. difficile positive noted. 11/03: Tmax 99.9. Currently afebrile. Positive BM. Tolerating tube feeding. Squeezes hand to command on sedation vacation but became more agitated and back in A. fib. EEG revealed swelling but no epileptic activity. MRI brain pending. Subjective 11/04: Noted that a wide-complex tachycardia overnight. Currently on amiodarone drip. Noted potassium 2.6, calcium low magnesium level. This all been replaced. Currently afebrile. Positive BM. Opens eyes and will squeeze hands occasionally bilateral x-rays. MRI brain revealed no acute intracranial findings. Objective Vital Signs Date Time Temp Pulse Resp B/P Pulse Ox O2 Delivery O2 Flow Rate FiO2 11/04/16 08:10 93 35 11/04/16 06:00 67 11/04/16 04:00 98.2 14 103/53 11/01/16 15:20 Ventilator 11/01/16 12:20 6.00 Intake and Output 11/03/16 11/03/16 11/04/16 08:00 16:00 00:00 Intake Total 1141 ml 3200 ml 3704 ml Output Total 400 ml 1550 ml 1350 ml Balance 741 ml 1650 ml 2354 ml Result Diagram: 11/04/16 0610 11/04/16 0610 Other Results Microbiology Date/Time Procedure Status Source Growth 11/01/16 16:03 Influenza Types A,B Antigen (JAKOB) - Final Complete Nasal Aspirate NEGATIVE FOR FLU A AND B ANTIGEN.... 11/01/16 16:03 Gram Stain - Final Complete Sputum Endotracheal 11/01/16 16:03 Sputum Culture - Final Complete Klebsiella Pneumoniae Staphylococcus Aureus 11/01/16 13:20 Urine Culture - Final Complete Urine Catheterized Urine NO GROWTH IN 48 HOURS. 11/01/16 13:20 Legionella Antigen - Final Complete Urine Catheterized Urine PRESUMPTIVE NEGATIVE FOR LEGIONELLA P... 11/01/16 13:20 Streptococcus pneumoniae Antigen (M - Final Complete Urine Catheterized Urine PRESUMPTIVE NEGATIVE FOR STREPTOCOCCU... 11/01/16 12:00 Aerobic Blood Culture - Preliminary Resulted Blood Peripheral NO GROWTH IN 2 DAYS 11/01/16 12:00 Anaerobic Blood Culture - Preliminary Resulted Blood Peripheral NO GROWTH IN 2 DAYS Imaging Last Impressions Chest X-Ray 11/03/16 1302 Signed Impressions: Service Date/Time: October 13:09 - CONCLUSION: 1. Left IJ line distal tip is in the SVC. No pneumothorax is visualized. 2. Persistent hazy opacity at the left lung base may represent atelectasis or consolidation. Arvind Kyle MD Brain MRI 11/03/16 0000 Signed Impressions: Service Date/Time: October 18:28 - CONCLUSION: Stable chronic changes as described above. No acute intracranial process. Antolni Pulido MD Head CT 11/01/16 1139 Signed Impressions: Service Date/Time: Tuesday, November 01, 2016 15:09 - CONCLUSION: 1. Cerebral atrophy and chronic ischemic small vessel vasculopathy. 2. Remote bilateral lacunar infarcts. Chao Hensley MD Renal Ultrasound 11/01/16 0000 Signed Impressions: Service Date/Time: Tuesday, November 01, 2016 16:47 - CONCLUSION: 1. Kidneys are slightly echogenic which can be seen with medical renal disease. 2. Urinary bladder decompressed by Masters catheter. Chao Hensley MD Abdomen/Pelvis CT 11/01/16 0000 Signed Impressions: Service Date/Time: Tuesday, November 01, 2016 15:12 - CONCLUSION: 1. No acute finding is identified within the abdomen or pelvis. There is a segment of mildly dilated mid jejunum in the left abdomen but otherwise there are no findings present to suggest bowel obstruction. 2. Severe atherosclerotic disease. 3. Airspace consolidation in both lower lobes, left greater than right. Arvind Kyle MD Objective Remarks GENERAL: 86-year-old male, critically ill currently resting in bed in no acute distress SKIN: Warm and dry.abrasions on knees bilaterally and sacral decubitus ulcer/ regimen stage I HEAD: Atraumatic. Normocephalic. EYES: Left pupil is 2 mm and irregular. Right pupil is pinpoint in reactive to light. No scleral icterus. No injection or drainage. ENT: No nasal bleeding or discharge. Mucous membranes pink and moist. NECK: Trachea midline. No JVD. CARDIOVASCULAR: Regular rate and rhythm. S1, S2. No S4. Without murmur RESPIRATORY: Coarse crackles appreciated bilaterally with end expiratory wheeze. Breath sounds equal bilaterally. GASTROINTESTINAL: Abdomen soft, non-tender, nondistended. Hepatic and splenic margins not palpable. MUSCULOSKELETAL: Extremities without noted in peripheral edema. No obvious deformities. NEUROLOGICAL: Intubated. Positive gag. Positive corneal reflex. Downgoing toes. Withdraws to pain today and all 4 extremities. Urinary Catheter: Yes Assessment to: Continue Masters insert reason: Prolonged Immobilization Vascular Central Line Catheter: Yes Assessment to: Continue Date of Insertion: Nov 03, 2016 Line: Central Venous Catheter Side: Left Location: Internal, Jugular A/P Assessment and Plan Neuro/Psych: Acute toxic metabolic encephalopathy Alzheimer's dementia Depression History of right subdural hematoma status post bur hole Chronic benzodiazepine use Chronic narcotic use History of insomnia Currently on propofol/fentanyl drips for sedation/analgesia while intubated RA SS -[address] head 11/02 revealed bilateral lacunar basal ganglia infarct/old with ventriculomegaly MRI brain revealed no acute intracranial findings 11/03 EEG shows no signs of seizure activity Patient is on Xanax 0.25 mg every 6 hours [facility]. This is been held Continue sertraline 25 mg by mouth daily for depression Holding melatonin 3 mg at night for insomnia CV: History of right CVA Hypertension History of atrial fibrillation currently normal sinus rhythm Lactic acidosis Elevated troponin likely demand ischemia eKG reveals sinus tachycardia with diffuse ST T changes throughout multiple leads likely related to dehydration/demand ischemia Cycle troponins. Peaked at 1.16. Currently 0.83 and trending downward Echo revealed EF 55-60%. Holding home medications lisinopril 10 mg. In light of hypotension/acute kidney injury Currently on sterile water with 2 ampule sodium bicarbonate 150 cc an hour Discontinued amiodarone drip. Supplement electrolytes. Resp: Acute hypoxemic respiratory failure ACV 14/500/5/40 - CPAP 8/5 and 40% Ventilator bundle Bronchodilator therapy every 6 hours and as needed Spontaneous breathing trials when indicated Chest x-ray reveals possible left upper lobe infiltrate. GI: Diarrhea/C. difficile positive Currently on Nepro goal 50 cc an hour Protonix for GI prophylaxis. Protonix 40 mg daily at home CT abdomen/pelvis revealed no obstruction or possible some mild dilatation the mid jejunum. Atherosclerotic vascular disease : History of BPH status post TURP Masters has been placed for accurate I's and O's in a critically ill patient Endo: Diabetes mellitus type 2 Hyperglycemia of critical illness Sliding-scale insulin with Accu-Cheks every 6 hours to maintain euglycemia/ medum protocol Renal: Acute on chronic kidney injury Rhabdomyolysis Progressive crystalloid hydration. Avoid nephrotoxic drugs Renal ultrasound no hydronephrosis. Possibly early medical renal disease. Negative urine eosinophils Heme: Leukocytosis with downward trend Thrombocytopenia Normocytic anemia Daily CBC/CMP. Monitor trends ID: Likely healthcare associated pneumonia -Klebsiella and staph aureus C. difficile positive Received vancomycin ED. Add aztreonam and Flagyl. Day #4 IV Flagyl/by mouth vancomycin for C. difficile day #3 11/01 - Blood cultures 2 no growth, urine no growth, sputum revealed Klebsiella /staph aureus, influenza negative, urine Legionella and pneumococcal antigens negative ID consult for antibiotic management appreciated FEN: Hypernatremia Hyperchloridemia Hypopotassemia Status post 2 L normal saline. Currently on sterile water with 2 ampules sodium bicarbonate 150 cc an hour. Free water flushes 250 cc every 6 hours. Received 40 mEq potassium chloride 1 now. 2 g mag sulfate and 30 mmol potassium phosphate. Recheck 1800 hours, MSK: History of left total knee arthroplasty PT evaluate and treat Access -Left IJ CVL day 2 Prophylaxis - GI - Protonix - DVT - SCD/heparin subcutaneous Critical Care: The total care time was 35 minutes. Time to perform other separately billable procedures was not included in the critical care time. Carlos Hirsch MD Nov 04, 2016 10:24
[2016-11-04] MEDS: SODIUM BICARBONATE 8.4% INJ 100 MEQ in WATER STERILE FOR INJ 900 ML IV SCH ×2 (18:25→18:39)
[2016-11-04] MEDS: MAGNESIUM SULFATE 1 GM PREMIX 100 ML IV SCH ×2 (18:26→18:43)
[2016-11-04 19:26] LABS: BICARBONATE 20.3 MEQ/L (21.0-32.0); POTASSIUM 3.3 MEQ/L (3.5-5.1)
[2016-11-04 19:40] LABS: CALCIUM-PROTEIN CORRECTED 7.5 MG/DL (8.5-10.1)
[2016-11-04] MEDS: ACETAMINOPHEN 325 MG TAB PO PRN (21:24)
[2016-11-04] MEDS ORDERED: CALCIUM GLUCONATE INJ 2 GM in DEXTROSE 5% IN WATER 100ML INJ 100 ML IV ONE ×2 (21:45)
[2016-11-04] MEDS: POTASSIUM CHLORIDE 20 MEQ PWD PACKET TUBE SCH (21:45)
[2016-11-04] MEDS: METOCLOPRAMIDE HCL SYRUP 10 MG/10 ML UDC PO SCH (23:32)
[2016-11-05] VITALS (19 sets, daily range): BP systolic 97–141; BP diastolic 47–63; PULSE 71–90; RESP 19–22; TEMP 98.7–100.4; O2SAT 92–99
[2016-11-05] MEDS: RESP: ALBUTEROL 2.5 MG/IPRATROPIUM 0.5 MG NEB (PRN) INH (00:06)
[2016-11-05] MEDS: SODIUM BICARBONATE 8.4% INJ 100 MEQ in WATER STERILE FOR INJ 900 ML IV SCH ×4 (01:06→21:14)
[2016-11-05] MEDS: POTASSIUM CHLORIDE 20 MEQ PWD PACKET TUBE SCH (01:45)
[2016-11-05] MEDS: RESP: ALBUTEROL 2.5 MG/IPRATROPIUM 0.5 MG NEB (SCH) INH ×4 (03:06→20:22)
[2016-11-05] MEDS: CHLORHEXIDINE GLUCONATE 2 % 1 PACK (2 CLOTHS) TOP SCH ×2 (03:16)
[2016-11-05] MEDS: HEPARIN SODIUM - SQ 10,000 UNITS/ML VIAL SQ SCH ×2 (03:35→15:59)
[2016-11-05] MEDS: AZTREONAM INJ 1,000 MG in SODIUM CHLORIDE 0.9% INJ 100 ML IV SCH ×2 (03:35→15:58)
[2016-11-05] MEDS: INSULIN NovoLIN REGULAR SUPPLEMENTAL SCALE SQ SCH ×3 (05:42→18:00)
[2016-11-05] MEDS: FREE WATER G-TUBE SCH ×3 (05:42→18:00)
[2016-11-05] MEDS: METOCLOPRAMIDE HCL SYRUP 10 MG/10 ML UDC PO SCH (05:42)
[2016-11-05 07:06] LABS: MAGNESIUM 1.9 MG/DL (1.5-2.5); POTASSIUM 3.3 MEQ/L (3.5-5.1); TOTAL BILIRUBIN ADULT 0.4 MG/DL (0.2-1.0)
[2016-11-05 07:07] LABS: AUTOMATED NEUTROPHIL # 9.6 TH/MM3 (1.8-7.7); BASOPHIL % 0.4 % (0.0-2.0); EOSINOPHIL # 0.6 TH/MM3 (0-0.4); EOSINOPHIL % 4.9 % (0.0-4.0); HEMO FLAGS DIFF FINAL; LYMPH % 8.1 % (9.0-44.0); MEAN CELL VOLUME 94.9 FL (80.0-100.0); MEAN CORPUSCULAR HGB CONC 32.7 % (32.0-36.0); MONO % 5.9 % (0.0-8.0); NEUT % 80.7 % (16.0-70.0); PLATELET COUNT 130 TH/MM3 (150-450); RED BLOOD COUNT 3.06 MIL/MM3 (4.50-5.90); RED CELL DISTRIBUTION WIDTH 15.7 % (11.6-17.2); WHITE BLOOD COUNT 11.9 TH/MM3 (4.0-11.0)
[2016-11-05] MEDS: fentaNYL DRIP 250 ML IV SCH (07:51)
[2016-11-05] MEDS: ARTIFICIAL TEARS OPTH SOLN 15 ML BTL EACH EYE SCH ×3 (07:51→18:01)
[2016-11-05] MEDS: CHLORHEXIDINE 0.12% (ORAL KIT) 15 ML CUP MT SCH ×2 (07:52→21:15)
[2016-11-05] MEDS: metroNIDAZOLE 500 MG INJ 100 ML IV SCH ×2 (07:52→15:58)
[2016-11-05] MEDS: PANTOPRAZOLE SODIUM 40 MG VIAL IV SCH (07:53)
[2016-11-05] MEDS: SODIUM CHLORIDE 0.9% FLUSH 5 ML FLUSH IV FLUSH SCH ×2 (07:54→21:16)
[2016-11-05] MEDS: SERTRALINE HCL 50 MG TAB PO SCH (07:54)
[2016-11-05] MEDS: SODIUM CHLORIDE 0.9% FLUSH 5 ML FLUSH IVF SCH (07:54)
[2016-11-05] MEDS: VANCOMYCIN 500 MG VIAL (FOR ORAL USE ONLY) PO SCH ×4 (07:54→21:16)
[2016-11-05] MEDS: BENEPROTEIN POWDER 1 PACK G-TUBE SCH ×3 (08:35→18:00)
[2016-11-05] MEDS: MAGNESIUM SULFATE 1 GM PREMIX 100 ML IV SCH ×2 (09:15→10:53)
--- NOTE | 2016-11-05 09:47 | HHI.CCPN ---
Subjective Remarks/Hospital Course 86-year-old male. Full code. Resident of [facility]. Date of admission 11/01/2016. Past medical history includes hypertension , COPD, right subdural hematoma status post lucien hole, Alzheimer dementia, chronic kidney disease stage III, BPH, depression, chronic benzodiazepine use and diabetes. Patient presented to [place] ED with several day history of decline in function including generalized illness clean diarrhea, shortness of breath. Recently the patient was diagnosed coronary artery pneumonia and started on an antibiotic. Today, the patient presents lethargic/no unresponsive. Initially seen on 6 L nasal cannula. Laboratories revealed sodium 174. Creatinine is 4.1. White blood cell count 24,000. Chest x-ray revealed possible pneumonia source. UA is currently pending. Patient was emergently intubated using 20 mg etomidate 100 mg succinylcholine due to altered mental status/airway protection 11/02: Afebrile. Adequate urine output. Currently on sedation vacation on CPAP trial. C. difficile positive noted. 11/03: Tmax 99.9. Currently afebrile. Positive BM. Tolerating tube feeding. Squeezes hand to command on sedation vacation but became more agitated and back in A. fib. EEG revealed swelling but no epileptic activity. MRI brain pending. 11/04: Noted that a wide-complex tachycardia overnight. Currently on amiodarone drip. Noted potassium 2.6, calcium low magnesium level. This all been replaced. Currently afebrile. Positive BM. Opens eyes and will squeeze hands occasionally bilateral x-rays. MRI brain revealed no acute intracranial findings. Subjective 11/05: Tmax 101.. Currently 99.3. High tube feed residuals currently at 600. 3 return. Recheck in one hour. Positive BM. Opens eyes to command and intermittently follows commands by squeezing hands. Currently on a fentanyl drip wean off.. Objective Vital Signs Date Time Temp Pulse Resp B/P Pulse Ox O2 Delivery O2 Flow Rate FiO2 11/05/16 08:44 35 11/05/16 08:44 96 11/05/16 06:00 80 11/05/16 04:00 99.3 19 97/47 11/01/16 15:20 Ventilator 11/01/16 12:20 6.00 Intake and Output 11/04/16 11/04/16 11/05/16 08:00 16:00 00:00 Intake Total 2253 ml 7774 ml Output Total 800 ml 1950 ml Balance 1453 ml 5824 ml Result Diagram: 11/05/16 0551 11/05/16 0551 Other Results Microbiology Date/Time Procedure Status Source Growth 11/01/16 16:03 Influenza Types A,B Antigen (JAKOB) - Final Complete Nasal Aspirate NEGATIVE FOR FLU A AND B ANTIGEN.... 11/01/16 16:03 Gram Stain - Final Complete Sputum Endotracheal 11/01/16 16:03 Sputum Culture - Final Complete Klebsiella Pneumoniae Staphylococcus Aureus 11/01/16 13:20 Urine Culture - Final Complete Urine Catheterized Urine NO GROWTH IN 48 HOURS. 11/01/16 13:20 Legionella Antigen - Final Complete Urine Catheterized Urine PRESUMPTIVE NEGATIVE FOR LEGIONELLA P... 11/01/16 13:20 Streptococcus pneumoniae Antigen (M - Final Complete Urine Catheterized Urine PRESUMPTIVE NEGATIVE FOR STREPTOCOCCU... 11/01/16 12:00 Aerobic Blood Culture - Preliminary Resulted Blood Peripheral NO GROWTH IN 3 DAYS 11/01/16 12:00 Anaerobic Blood Culture - Preliminary Resulted Blood Peripheral NO GROWTH IN 3 DAYS Imaging Last Impressions Chest X-Ray 11/03/16 1302 Signed Impressions: Service Date/Time: October 13:09 - CONCLUSION: 1. Left IJ line distal tip is in the SVC. No pneumothorax is visualized. 2. Persistent hazy opacity at the left lung base may represent atelectasis or consolidation. Arvind Kyle MD Brain MRI 11/03/16 0000 Signed Impressions: Service Date/Time: October 18:28 - CONCLUSION: Stable chronic changes as described above. No acute intracranial process. Antolin Pulido MD Head CT 11/01/16 1139 Signed Impressions: Service Date/Time: Tuesday, November 01, 2016 15:09 - CONCLUSION: 1. Cerebral atrophy and chronic ischemic small vessel vasculopathy. 2. Remote bilateral lacunar infarcts. Chao Hensley MD Renal Ultrasound 11/01/16 0000 Signed Impressions: Service Date/Time: Tuesday, November 01, 2016 16:47 - CONCLUSION: 1. Kidneys are slightly echogenic which can be seen with medical renal disease. 2. Urinary bladder decompressed by Masters catheter. Chao Hensley MD Abdomen/Pelvis CT 11/01/16 0000 Signed Impressions: Service Date/Time: Tuesday, November 01, 2016 15:12 - CONCLUSION: 1. No acute finding is identified within the abdomen or pelvis. There is a segment of mildly dilated mid jejunum in the left abdomen but otherwise there are no findings present to suggest bowel obstruction. 2. Severe atherosclerotic disease. 3. Airspace consolidation in both lower lobes, left greater than right. Arvind Kyle MD Objective Remarks GENERAL: 86-year-old male, critically ill currently resting in bed in no acute distress SKIN: Warm and dry.abrasions on knees bilaterally and sacral decubitus ulcer/ regimen stage I HEAD: Atraumatic. Normocephalic. EYES: Left pupil is 2 mm and irregular. Right pupil is pinpoint in reactive to light. No scleral icterus. No injection or drainage. ENT: No nasal bleeding or discharge. Mucous membranes pink and moist. NECK: Trachea midline. No JVD. CARDIOVASCULAR: Regular rate and rhythm. S1, S2. No S4. Without murmur RESPIRATORY: Coarse crackles appreciated bilaterally with end expiratory wheeze. Breath sounds equal bilaterally. GASTROINTESTINAL: Abdomen soft, non-tender, nondistended. Hepatic and splenic margins not palpable. MUSCULOSKELETAL: Extremities without noted in peripheral edema. No obvious deformities. NEUROLOGICAL: Intubated. Positive gag. Positive corneal reflex. Downgoing toes. Withdraws to pain today and all 4 extremities. Date of Insertion: Nov 03, 2016 Line: Central Venous Catheter Side: Left Location: Internal, Jugular A/P Assessment and Plan Neuro/Psych: Acute toxic metabolic encephalopathy Alzheimer's dementia Depression History of right subdural hematoma status post bur hole Chronic benzodiazepine use Chronic narcotic use History of insomnia Currently on fentanyl drips at 150 g an hour for sedation/analgesia while intubated Goal of RASS -[address] head 11/02 revealed bilateral lacunar basal ganglia infarct/old with ventriculomegaly MRI brain revealed no acute intracranial findings 11/03 EEG shows no signs of seizure activity Patient is on Xanax 0.25 mg every 6 hours at skilled nursing for anxiety. This is been held Continue sertraline 25 mg by mouth daily for depression Holding melatonin 3 mg at night for insomnia CV: History of right CVA Hypertension History of atrial fibrillation currently normal sinus rhythm Lactic acidosis Elevated troponin likely demand ischemia eKG reveals sinus tachycardia with diffuse ST T changes throughout multiple leads likely related to dehydration/demand ischemia Cycle troponins. Peaked at 1.16. Currently 0.83 and trending downward Echo revealed EF 55-60%. Holding home medications lisinopril 10 mg daily in light of hypotension/acute kidney injury Currently on sterile water with 2 ampule sodium bicarbonate 150 cc an hour Discontinued amiodarone drip or 11/04. Supplement electrolytes. Resp: Acute hypoxemic respiratory failure ACV 14/500/5/40 - CPAP 8/5 and 40% Ventilator bundle Bronchodilator therapy every 6 hours and as needed Spontaneous breathing trials when indicated Chest x-ray reveals possible left upper lobe infiltrate.. Recheck chest x-ray today GI: Diarrhea/C. difficile positive Currently on Nepro goal 50 cc an hour. Noted high residuals Add prokinetic agent Protonix for GI prophylaxis. Protonix 40 mg daily at home CT abdomen/pelvis revealed no obstruction or possible some mild dilatation the mid jejunum. Atherosclerotic vascular disease : History of BPH status post TURP Masters has been placed for accurate I's and O's in a critically ill patient Endo: Diabetes mellitus type 2 Hyperglycemia Sliding-scale insulin with Accu-Cheks every 6 hours to maintain euglycemia/low protocol Adjusted sliding-scale insulin secondary to hypoglycemic episode see above Renal: Acute on chronic kidney injury Rhabdomyolysis Progressive crystalloid hydration. Avoid nephrotoxic drugs Renal ultrasound no hydronephrosis. Possibly early medical renal disease. Negative urine eosinophils CPKs trending downward. Currently 1600 Heme: Leukocytosis Normocytic anemia Daily CBC/CMP. Monitor trends ID: Likely healthcare associated pneumonia -Klebsiella and staph aureus C. difficile positive Received vancomycin ED. Aztreonam and Flagyl. Day #5 IV Flagyl/by mouth vancomycin for C. difficile day #4 11/01 - Blood cultures 2 no growth, urine no growth, sputum revealed Klebsiella /staph aureus, influenza negative, urine Legionella and pneumococcal antigens negative ID consult for antibiotic management appreciated FEN: Hypernatremia Hyperchloridemia Hypopotassemia Currently on sterile water with 2 ampules sodium bicarbonate 150 cc an hour. Free water flushes 250 cc every 6 hours. Received 40 mEq potassium chloride 1 now. Recheck this afternoon MSK: History of left total knee arthroplasty PT evaluate and treat Access -Left IJ CVL day 3 Prophylaxis - GI - Protonix - DVT - SCD/heparin subcutaneous Critical Care: The total care time was 35 minutes. Time to perform other separately billable procedures was not included in the critical care time. Carlos Hirsch MD Nov 05, 2016 09:47
[2016-11-05] MEDS ORDERED: DEXTROSE 50% IN WATER 50 ML VIAL(D50) IV PUSH PRN (10:00)
[2016-11-05] MEDS ORDERED: POTASSIUM CHLORIDE INJ 40 MEQ in SODIUM CHLORID 0.9% 500 ML INJ 500 ML IV-CENTRAL ONE (10:00)
[2016-11-05] MEDS ORDERED: GLUCAGON 1 MG/ML VIAL OTHER PRN (10:00)
--- NOTE | 2016-11-05 10:26 | RADRPT ---
EXAM DATE/TIME: 11/05/2016 09:21 [facility] COMPARISON: CHEST SINGLE AP, November 03, 2016, 13:09. INDICATIONS : Respiratory Failure. MEDICAL HISTORY : Hypertension. Diabetes mellitus type 2. Chronic obstructive pulmonary disease. SURGICAL HISTORY : Appendectomy. Carotid endarterectomy. Prostatectomy. Right knee. ENCOUNTER: Subsequent ACUITY: 4 - 6 days PAIN SCORE: Non-responsive. LOCATION: Bilateral chest FINDINGS: Single AP view of the chest. Endotracheal tube, nasogastric tube, left IJ central venous catheter rem ain in place. Increase in left lower lobe atelectasis versus consolidation. Increase in small left pl eural effusion. Cardiomediastinal silhouette unchanged. No evidence of pneumothorax. CONCLUSION: Increase in left lower lung atelectasis versus consolidation and increase in small left pleural effus ion. Sarthak Clark MD on November 05, 2016 at 10:23 Board Certified Radiologist. This report was verified electronically.
[2016-11-05] MEDS ORDERED: WATER STERILE FOR IV SCH (11:00)
[2016-11-05] MEDS ORDERED: SODIUM BICARBONATE IV SCH (11:00)
[2016-11-05] MEDS: METOCLOPRAMIDE HCL 10 MG/2 ML VIAL IV PUSH SCH ×2 (13:58→21:17)
--- NOTE | 2016-11-05 18:33 | HHI.IDPN ---
Subjective Subjective Remarks intermittent fevers up to 101 HIgh residuals + BM remains on vent Antibiotics azactam vanco PO vano Iv flagl IV Allergies: Coded Allergies: Ativan (Unverified Allergy, Severe, 11/01/16) Bactrim (Verified Allergy, Severe, hives, 11/01/16) Levaquin (Verified Allergy, Severe, 11/01/16) Morphine (Unverified Allergy, Severe, 11/01/16) Penicillin (Unverified Allergy, Severe, 11/01/16) Tuna (Unverified Allergy, Severe, 11/01/16) Hydrocortisone (Verified Allergy, Unknown, UNKNOWN, 11/01/16) Saccharin (Verified Allergy, Unknown, UNKNOWN , 11/01/16) Objective . Vital Signs Date Time Temp Pulse Resp B/P Pulse Ox O2 Delivery O2 Flow Rate FiO2 11/05/16 18:00 86 11/05/16 16:22 94 35 11/05/16 16:00 90 11/05/16 16:00 99.6 90 22 131/58 92 11/05/16 16:00 35 11/05/16 14:00 89 11/05/16 12:00 35 11/05/16 12:00 81 11/05/16 12:00 99.3 81 22 113/51 95 11/05/16 11:29 96 35 11/05/16 10:00 77 11/05/16 08:44 35 11/05/16 08:44 96 35 11/05/16 08:00 35 11/05/16 08:00 98.7 80 19 100/54 98 11/05/16 08:00 80 11/05/16 06:00 80 11/05/16 04:20 98 35 11/05/16 04:00 71 11/05/16 04:00 99.3 71 19 97/47 97 11/05/16 04:00 35 11/05/16 02:00 71 11/05/16 01:22 96 35 11/05/16 00:00 85 11/05/16 00:00 35 11/05/16 00:00 99.1 85 19 141/63 96 11/04/16 22:00 76 11/04/16 22:00 95 35 11/04/16 20:00 101.0 75 19 99/48 96 11/04/16 20:00 75 11/04/16 20:00 35 11/04/16 19:40 96 35 11/04/16 11/04/16 11/05/16 15:00 23:00 07:00 Intake Total 7774 ml 1817 ml Output Total 1950 ml 850 ml Balance 5824 ml 967 ml IV Total 6360 ml 1267 ml Tube Feeding 814 ml 50 ml Other 600 ml 500 ml Output Urine Total 1900 ml 750 ml Stool Total 50 ml 100 ml . Laboratory Tests Test 11/04/16 11/05/16 06:10 05:51 White Blood Count 13.0 TH/MM3 11.9 TH/MM3 Red Blood Count 3.27 MIL/MM3 3.06 MIL/MM3 Hemoglobin 10.2 GM/DL 9.5 GM/DL Hematocrit 31.5 % 29.0 % Mean Corpuscular Volume 96.2 FL 94.9 FL Mean Corpuscular Hemoglobin 31.0 PG 31.0 PG Mean Corpuscular Hemoglobin 32.3 % 32.7 % Concent Red Cell Distribution Width 15.5 % 15.7 % Platelet Count 128 TH/MM3 130 TH/MM3 Mean Platelet Volume 11.3 FL 12.0 FL Neutrophils (%) (Auto) 83.3 % 80.7 % Lymphocytes (%) (Auto) 8.0 % 8.1 % Monocytes (%) (Auto) 4.1 % 5.9 % Eosinophils (%) (Auto) 4.2 % 4.9 % Basophils (%) (Auto) 0.4 % 0.4 % Neutrophils # (Auto) 10.8 TH/MM3 9.6 TH/MM3 Lymphocytes # (Auto) 1.0 TH/MM3 1.0 TH/MM3 Monocytes # (Auto) 0.5 TH/MM3 0.7 TH/MM3 Eosinophils # (Auto) 0.6 TH/MM3 0.6 TH/MM3 Basophils # (Auto) 0.0 TH/MM3 0.0 TH/MM3 CBC Comment DIFF FINAL DIFF FINAL Differential Comment Laboratory Tests Test 11/04/16 11/04/16 11/04/16 11/05/16 00:00 06:10 18:20 05:51 Sodium Level 150 MEQ/L 147 MEQ/L 148 MEQ/L 146 MEQ/L Potassium Level 2.6 MEQ/L 3.3 MEQ/L 3.3 MEQ/L Chloride Level 118 MEQ/L 116 MEQ/L 116 MEQ/L Carbon Dioxide Level 19.2 MEQ/L 20.3 MEQ/L 22.0 MEQ/L Anion Gap 10 MEQ/L 12 MEQ/L 8 MEQ/L Blood Urea Nitrogen 48 MG/DL 48 MG/DL 43 MG/DL Creatinine 2.15 MG/DL 2.16 MG/DL 2.28 MG/DL Estimat Glomerular Filtration 29 ML/MIN 29 ML/MIN 27 ML/MIN Rate Random Glucose 211 MG/DL 128 MG/DL 260 MG/DL Lactic Acid Level 1.2 mmol/L Calcium Level 6.4 MG/DL 6.5 MG/DL 6.7 MG/DL Protein Corrected Calcium 7.4 MG/DL 7.5 MG/DL 8.0 MG/DL Phosphorus Level 1.8 MG/DL 3.6 MG/DL 2.7 MG/DL Magnesium Level 1.8 MG/DL 2.0 MG/DL 1.9 MG/DL Total Bilirubin 0.5 MG/DL 0.4 MG/DL Aspartate Amino Transf 90 U/L 102 U/L (AST/SGOT) Alanine Aminotransferase 36 U/L 43 U/L (ALT/SGPT) Alkaline Phosphatase 72 U/L 73 U/L Troponin I 0.24 NG/ML Total Protein 5.1 GM/DL 5.0 GM/DL 4.6 GM/DL Albumin 1.6 GM/DL 1.3 GM/DL Total Creatine Kinase 1687 U/L Creatine Kinase MB 12.0 NG/ML Creatine Kinase MB % 0.7 % Test 11/05/16 11/05/16 05:52 16:45 Lactic Acid Level 0.8 mmol/L Potassium Level 3.6 MEQ/L Imaging Last Impressions Chest X-Ray 11/05/16 0000 Signed Impressions: Service Date/Time: Saturday, November 05, 2016 09:21 - CONCLUSION: Increase in left lower lung atelectasis versus consolidation and increase in small left pleural effusion. Sarthak Clark MD Brain MRI 11/03/16 0000 Signed Impressions: Service Date/Time: October 18:28 - CONCLUSION: Stable chronic changes as described above. No acute intracranial process. Antolin Pulido MD Head CT 11/01/16 1139 Signed Impressions: Service Date/Time: Tuesday, November 01, 2016 15:09 - CONCLUSION: 1. Cerebral atrophy and chronic ischemic small vessel vasculopathy. 2. Remote bilateral lacunar infarcts. Chao Hensley MD Renal Ultrasound 11/01/16 0000 Signed Impressions: Service Date/Time: Tuesday, November 01, 2016 16:47 - CONCLUSION: 1. Kidneys are slightly echogenic which can be seen with medical renal disease. 2. Urinary bladder decompressed by Masters catheter. Chao Hensley MD Abdomen/Pelvis CT 11/01/16 0000 Signed Impressions: Service Date/Time: Tuesday, November 01, 2016 15:12 - CONCLUSION: 1. No acute finding is identified within the abdomen or pelvis. There is a segment of mildly dilated mid jejunum in the left abdomen but otherwise there are no findings present to suggest bowel obstruction. 2. Severe atherosclerotic disease. 3. Airspace consolidation in both lower lobes, left greater than right. Arvind Kyle MD Physical Exam CONSTITUTIONAL/GENERAL: This is an adequately nourished patient, in no apparent distress. TUBES/LINES/DRAINS: SKIN: No jaundice, rashes, or lesions. Skin temperature appropriate. Not diaphoretic. HEAD: Atraumatic. Normocephalic. EYES: Pupils equal and round and reactive. Extraocular motions intact. No scleral icterus. No injection or drainage. Fundi not examined. ENT: Hearing unable to assess. Nose without bleeding or purulent drainage. Orally intubated NECK: Trachea midline. Supple, nontender. No palpable thyroid enlargement or nodularity. CARDIOVASCULAR: Regular rate and rhythm without murmurs, gallops, or rubs. No JVD. Peripheral pulses not palpale on bl feet RESPIRATORY/CHEST: Symmetric, unlabored respirations. Clear to auscultation. Breath sounds equal bilaterally. No wheezes, rales, or rhonchi. GASTROINTESTINAL: Abdomen soft, non-tender ( no reation to palpation), moderately distended. No hepato-splenomegaly, or palpable masses. No guarding. Bowel sounds diminished Incontinent of brown liquid stool GENITOURINARY: Without palpable bladder distension. Masters catheter in place. MUSCULOSKELETAL: Extremities without clubbing, or edema. No joint tenderness or effusion noted. No calf tenderness. No mottling or clubbing. + cyanosis, delayed refill on toes and fingertips LYMPHATICS: No palpable cervical or supraclavicular adenopathy. NEUROLOGICAL: Sedated, unresponsives. PSYCHIATRIC: unable to assess Assessment & Plan Remarks PNA, Klebsiella, MSSA Acute VDRF Hypervirlent strain of C.diff Multiple abx allergies, including PCN, Levaquine, bactrim, sustantially limiting aailbale abx choice, though it appears from EMR that pt had CFTX and cefazoline uneventfully in 2015 - cont po vanco, IV flagyl for C.diff - dc azactam, flagyl - start CFTX for PNA Aletha Pepe MD Nov 05, 2016 18:33
[2016-11-05] MEDS: cefTRIAXone INJ 2,000 MG in SODIUM CHLORIDE 0.9% INJ 100 ML IV SCH (21:16)
[2016-11-05] MEDS: ACETAMINOPHEN 325 MG TAB PO PRN (21:43)
[2016-11-06] VITALS (19 sets, daily range): BP systolic 115–169; BP diastolic 59–94; PULSE 81–125; RESP 17–24; TEMP 98.5–99.3; O2SAT 92–100
[2016-11-06] MEDS: metroNIDAZOLE 500 MG INJ 100 ML IV SCH ×3 (00:31→15:32)
[2016-11-06] MEDS ORDERED: AMIODARONE 150 MG/D5W 97 ML BOLUS 10 MINUTES IV ONE ×2 (02:15)
[2016-11-06] MEDS ORDERED: AMIODARONE INJ 450 MG in DEXTROSE 5% IN WATE(EXCEL) INJ 241 ML IV SCH ×2 (02:15)
[2016-11-06] MEDS: SODIUM BICARBONATE 8.4% INJ 100 MEQ in WATER STERILE FOR INJ 900 ML IV SCH (02:36)
[2016-11-06] MEDS: CHLORHEXIDINE GLUCONATE 2 % 1 PACK (2 CLOTHS) TOP SCH ×2 (03:27)
[2016-11-06] MEDS: RESP: ALBUTEROL 2.5 MG/IPRATROPIUM 0.5 MG NEB (SCH) INH ×4 (03:41→21:20)
[2016-11-06] MEDS: HEPARIN SODIUM - SQ 10,000 UNITS/ML VIAL SQ SCH ×2 (03:49→15:32)
[2016-11-06 04:55] LABS: AUTOMATED NEUTROPHIL # 12.8 TH/MM3 (1.8-7.7); BASOPHIL # 0.1 TH/MM3 (0-0.2); BASOPHIL % 0.4 % (0.0-2.0); EOSINOPHIL # 0.4 TH/MM3 (0-0.4); EOSINOPHIL % 2.7 % (0.0-4.0); HEMATOCRIT 30.4 % (39.0-51.0); HEMO FLAGS DIFF FINAL; LYMPHOCYTE # 1.1 TH/MM3 (1.0-4.8); MEAN CORPUSCULAR HEMOGLOBIN 31.5 PG (27.0-34.0); MEAN CORPUSCULAR HGB CONC 33.5 % (32.0-36.0); MONO % 5.5 % (0.0-8.0); NEUT % 84.4 % (16.0-70.0); PLATELET COUNT 165 TH/MM3 (150-450); RED BLOOD COUNT 3.24 MIL/MM3 (4.50-5.90); RED CELL DISTRIBUTION WIDTH 15.1 % (11.6-17.2); WHITE BLOOD COUNT 15.2 TH/MM3 (4.0-11.0)
[2016-11-06] MEDS ORDERED: ALTEPLASE RECOMBINANT 2 MG VIAL INTRACATH ONE (05:00)
[2016-11-06 05:02] LABS: BICARBONATE 28.4 MEQ/L (21.0-32.0); MAGNESIUM 2.3 MG/DL (1.5-2.5); POTASSIUM 3.4 MEQ/L (3.5-5.1)
[2016-11-06 05:21] LABS: CALCIUM-PROTEIN CORRECTED 8.4 MG/DL (8.5-10.1); TOTAL BILIRUBIN ADULT 0.4 MG/DL (0.2-1.0)
[2016-11-06 05:46] LABS: CKMB 6.7 NG/ML (0.5-3.6)
[2016-11-06] MEDS: INSULIN NovoLIN REGULAR SUPPLEMENTAL SCALE SQ SCH ×4 (06:00→18:00)
[2016-11-06] MEDS ORDERED: PHARMACY ORDERED LAB XX ONE (06:00)
[2016-11-06] MEDS: FREE WATER G-TUBE SCH ×4 (06:00→18:00)
[2016-11-06] MEDS: METOCLOPRAMIDE HCL 10 MG/2 ML VIAL IV PUSH SCH ×3 (06:02→22:35)
--- NOTE | 2016-11-06 07:59 | HHI.CCPN ---
Subjective Remarks/Hospital Course 86-year-old male. Full code. Resident of [facility]. Date of admission 11/01/2016. Past medical history includes hypertension , COPD, right subdural hematoma status post lucien hole, Alzheimer dementia, chronic kidney disease stage III, BPH, depression, chronic benzodiazepine use and diabetes. Patient presented to [place] ED with several day history of decline in function including generalized illness clean diarrhea, shortness of breath. Recently the patient was diagnosed coronary artery pneumonia and started on an antibiotic. Today, the patient presents lethargic/no unresponsive. Initially seen on 6 L nasal cannula. Laboratories revealed sodium 174. Creatinine is 4.1. White blood cell count 24,000. Chest x-ray revealed possible pneumonia source. UA is currently pending. Patient was emergently intubated using 20 mg etomidate 100 mg succinylcholine due to altered mental status/airway protection 11/02: Afebrile. Adequate urine output. Currently on sedation vacation on CPAP trial. C. difficile positive noted. 11/03: Tmax 99.9. Currently afebrile. Positive BM. Tolerating tube feeding. Squeezes hand to command on sedation vacation but became more agitated and back in A. fib. EEG revealed swelling but no epileptic activity. MRI brain pending. 11/04: Noted that a wide-complex tachycardia overnight. Currently on amiodarone drip. Noted potassium 2.6, calcium low magnesium level. This all been replaced. Currently afebrile. Positive BM. Opens eyes and will squeeze hands occasionally bilateral x-rays. MRI brain revealed no acute intracranial findings. 11/05: Tmax 101.. Currently 99.3. High tube feed residuals currently at 600. 300 return. Recheck in one hour. Positive BM. Opens eyes to command and intermittently follows commands by squeezing hands. Currently on a fentanyl drip wean off. Subjective 11/06: Maximum 100.4. Currently afebrile. Resting comfortably in bed off fentanyl drip. Noted A. fib with RVR overnight on amiodarone drip. This will be discontinued. Placed on low-dose beta dwain in the interim. Positive BM. Not tolerating tube feeding. KUB pending. Objective Vital Signs Date Time Temp Pulse Resp B/P Pulse Ox O2 Delivery O2 Flow Rate FiO2 11/06/16 06:00 84 11/06/16 04:20 100 50 11/06/16 04:00 99.3 19 130/59 Intake and Output 11/05/16 11/05/16 11/06/16 08:00 16:00 00:00 Intake Total 1817 ml 2034 ml 1507 ml Output Total 1150.0 ml 1800 ml 1500 ml Balance 667.0 ml 234 ml 7 ml Result Diagram: 11/06/16 0346 11/06/16 0346 Other Results Microbiology Date/Time Procedure Status Source Growth 11/01/16 16:03 Influenza Types A,B Antigen (JAKOB) - Final Complete Nasal Aspirate NEGATIVE FOR FLU A AND B ANTIGEN.... 11/01/16 16:03 Gram Stain - Final Complete Sputum Endotracheal 11/01/16 16:03 Sputum Culture - Final Complete Klebsiella Pneumoniae Staphylococcus Aureus 11/01/16 13:20 Urine Culture - Final Complete Urine Catheterized Urine NO GROWTH IN 48 HOURS. 11/01/16 13:20 Legionella Antigen - Final Complete Urine Catheterized Urine PRESUMPTIVE NEGATIVE FOR LEGIONELLA P... 11/01/16 13:20 Streptococcus pneumoniae Antigen (M - Final Complete Urine Catheterized Urine PRESUMPTIVE NEGATIVE FOR STREPTOCOCCU... 11/01/16 12:00 Aerobic Blood Culture - Preliminary Resulted Blood Peripheral NO GROWTH IN 4 DAYS 11/01/16 12:00 Anaerobic Blood Culture - Preliminary Resulted Blood Peripheral NO GROWTH IN 4 DAYS Imaging Last Impressions Chest X-Ray 11/05/16 0000 Signed Impressions: Service Date/Time: Saturday, November 05, 2016 09:21 - CONCLUSION: Increase in left lower lung atelectasis versus consolidation and increase in small left pleural effusion. Sarthak Clark MD Brain MRI 11/03/16 0000 Signed Impressions: Service Date/Time: October 18:28 - CONCLUSION: Stable chronic changes as described above. No acute intracranial process. Antolin Pulido MD Head CT 11/01/16 1139 Signed Impressions: Service Date/Time: Tuesday, November 01, 2016 15:09 - CONCLUSION: 1. Cerebral atrophy and chronic ischemic small vessel vasculopathy. 2. Remote bilateral lacunar infarcts. Chao Hensley MD Renal Ultrasound 11/01/16 0000 Signed Impressions: Service Date/Time: Tuesday, November 01, 2016 16:47 - CONCLUSION: 1. Kidneys are slightly echogenic which can be seen with medical renal disease. 2. Urinary bladder decompressed by Masters catheter. Chao Hensley MD Abdomen/Pelvis CT 11/01/16 0000 Signed Impressions: Service Date/Time: Tuesday, November 01, 2016 15:12 - CONCLUSION: 1. No acute finding is identified within the abdomen or pelvis. There is a segment of mildly dilated mid jejunum in the left abdomen but otherwise there are no findings present to suggest bowel obstruction. 2. Severe atherosclerotic disease. 3. Airspace consolidation in both lower lobes, left greater than right. Arvind Kyle MD Objective Remarks GENERAL: 86-year-old male, critically ill currently resting in bed in no acute distress SKIN: Warm and dry.abrasions on knees bilaterally and sacral decubitus ulcer/ regimen stage I HEAD: Atraumatic. Normocephalic. EYES: Left pupil is 2 mm and irregular. Right pupil is pinpoint in reactive to light. No scleral icterus. No injection or drainage. ENT: No nasal bleeding or discharge. Mucous membranes pink and moist. NECK: Trachea midline. No JVD. CARDIOVASCULAR: Regular rate and rhythm. S1, S2. No S4. Without murmur RESPIRATORY: Coarse crackles appreciated bilaterally with end expiratory wheeze. Breath sounds equal bilaterally. GASTROINTESTINAL: Abdomen soft, non-tender, nondistended. Hepatic and splenic margins not palpable. MUSCULOSKELETAL: Extremities without noted in peripheral edema. No obvious deformities. NEUROLOGICAL: Intubated. Positive gag. Positive corneal reflex. Downgoing toes. Withdraws to pain and spontaneously moves all 4 extremities. Urinary Catheter: Yes Assessment to: Continue Masters insert reason: Prolonged Immobilization Vascular Central Line Catheter: Yes Assessment to: Continue Date of Insertion: Nov 03, 2016 Line: Central Venous Catheter Side: Left Location: Internal, Jugular A/P Assessment and Plan Neuro/Psych: Acute toxic metabolic encephalopathy Alzheimer's dementia Depression History of right subdural hematoma status post bur hole Chronic benzodiazepine use Chronic narcotic use History of insomnia Currently off fentanyl drips r for sedation/analgesia while intubated Goal of RASS -2 while on sedation. 0 currently Daily sedation vacation CT head 11/02 revealed bilateral lacunar basal ganglia infarct/old with ventriculomegaly 11/03 - MRI brain revealed no acute intracranial findings EEG shows no signs of seizure activity Patient is on Xanax 0.25 mg every 6 hours at [facility] for anxiety. This currently has been held Continue sertraline 25 mg by mouth daily for depression Holding melatonin 3 mg at night for insomnia CV: History of right CVA Hypertension History of atrial fibrillation currently normal sinus rhythm Lactic acidosis Elevated troponin likely demand ischemia eKG reveals sinus tachycardia with diffuse ST T changes throughout multiple leads likely related to dehydration/demand ischemia Cycle troponins. Peaked at 1.16. Currently 0.83 and trending downward Echo revealed EF 55-60%. Will require nuclear stress test prior to discharge Holding home medications lisinopril 10 mg daily in light of hypotension/acute kidney injury Currently on sterile water with 2 ampule sodium bicarbonate 150 cc an hour Discontinued amiodarone drip or 11/06. Supplement electrolytes specifically potassium. Resp: Acute hypoxemic respiratory failure ACV 14/500/5/40 - CPAP 8/ and 40% Ventilator bundle Bronchodilator therapy every 6 hours and as needed Spontaneous breathing trials when indicated Chest x-ray reveals possible left upper lobe infiltrate.. Recheck chest x-ray today GI: Diarrhea/C. difficile positive Currently on Nepro goal 50 cc an hour. Early a 25 cc an hour due to high residuals Add prokinetic agent Reglan 5 every 8 Protonix for GI prophylaxis. Protonix [address] home CT abdomen/pelvis revealed no obstruction or possible some mild dilatation the mid jejunum. Atherosclerotic vascular disease KUB nonspecific today. : History of BPH status post TURP Masters has been placed for accurate I's and O's in a critically ill patient Endo: Diabetes mellitus type 2 Hyperglycemia Sliding-scale insulin with Accu-Cheks every 6 hours to maintain euglycemia/low protocol Adjusted sliding-scale insulin secondary to hypoglycemic episode see above Renal: Acute on chronic kidney injury Rhabdomyolysis Progressive crystalloid hydration. Avoid nephrotoxic drugs Renal ultrasound no hydronephrosis. Possibly early medical renal disease. Negative urine eosinophils CPKs trending downward. Currently 1200 Heme: Leukocytosis Normocytic anemia Daily CBC/CMP. Monitor trends ID: Likely healthcare associated pneumonia -Klebsiella and staph aureus C. difficile positive Received vancomycin ED. Aztreonam and Flagyl. Day #5 discontinued 11/05 IV Flagyl/by mouth vancomycin for C. difficile day #5 Start on Rocephin 2 g IV 24 day #2 per ID 11/01 - Blood cultures 2 no growth, urine no growth, sputum revealed Klebsiella /staph aureus, influenza negative, urine Legionella and pneumococcal antigens negative ID consult for antibiotic management appreciated FEN: Hypernatremia Hyperchloridemia Hypopotassemia Currently on sterile water with 2 ampules sodium bicarbonate 150 cc an hour. Changed to quarter normal saline at 100 cc an hour Free water flushes 250 cc every 6 hours. Received 30 mEq potassium chloride 1 now. Received 30 mmol K-Phos IV 1 now. Recheck this afternoon MSK: History of left total knee arthroplasty PT evaluate and treat Access -Left IJ CVL day 4 Prophylaxis - GI - Protonix - DVT - SCD/heparin subcutaneous Critical Care: The total care time was 35 minutes. Time to perform other separately billable procedures was not included in the critical care time. Attempted extubation 11/06 at 1300. Passed weaning parameters. Patient had a cuff leak. Patient lasted approximately 30 minutes. Significant secretions and unable to cough E intubation. On visualization for intubation significant vocal cord edema. We'll start on Decadron 2 days see orders.. Carlos Hirsch MD Nov 06, 2016 07:59
[2016-11-06] MEDS ORDERED: POTASSIUM CHLORIDE INJ 30 MEQ in SODIUM CHLORIDE 0.9% INJ 100 ML IV-CENTRAL ONE (08:00)
[2016-11-06] MEDS ORDERED: CALCIUM GLUCONATE INJ 1 GM in DEXTROSE 5% IN WATER 100ML INJ 100 ML IV ONE ×2 (08:00)
--- NOTE | 2016-11-06 08:03 | RADRPT ---
EXAM DATE/TIME: 11/06/2016 07:43 [facility] COMPARISON: CHEST SINGLE AP, November 05, 2016, 9:21. INDICATIONS : Abdominal pain MEDICAL HISTORY : Hypertension. Cardiovascular disease. Renal disease, dementia SURGICAL HISTORY : Appendectomy. ENCOUNTER: Initial ACUITY: 1 week PAIN SCORE: Non-responsive. LOCATION: Bilateral abdomen FINDINGS: Supine view of the abdomen was performed. The abdominal bowel gas pattern is normal. No abnormal ma sses, calcifications, or organomegaly is seen. The osseous structures are unremarkable. A nasogastric tube is present. No gastric distention. A rectal temperature probe is seen. CONCLUSION: Benign-appearing abdomen. Arvind Márquez MD on November 06, 2016 at 8:01 Board Certified Radiologist. This report was verified electronically.
[2016-11-06] MEDS: VANCOMYCIN 500 MG VIAL (FOR ORAL USE ONLY) PO SCH ×4 (09:00→20:36)
[2016-11-06] MEDS ORDERED: POTASSIUM PHOSPHATE INJ 30 MMOL in SODIUM CHLOR 0.9% 250 ML INJ 250 ML IV ONE (09:00)
[2016-11-06] MEDS: BENEPROTEIN POWDER 1 PACK G-TUBE SCH ×3 (09:00→18:00)
[2016-11-06] MEDS: ALBUMIN HUMAN 25% 25 GM/100 ML BAGP IV SCH ×2 (09:17→20:31)
[2016-11-06] MEDS: ARTIFICIAL TEARS OPTH SOLN 15 ML BTL EACH EYE SCH ×3 (09:19→17:35)
[2016-11-06] MEDS: SODIUM CHLORIDE 23.4% INJ 38.5 MEQ in WATER STERILE FOR INJ 1,000 ML IV SCH ×2 (09:20→20:34)
[2016-11-06] MEDS: SERTRALINE HCL 50 MG TAB PO SCH (09:21)
[2016-11-06] MEDS: PANTOPRAZOLE SODIUM 40 MG VIAL IV SCH (09:22)
[2016-11-06] MEDS: CHLORHEXIDINE 0.12% (ORAL KIT) 15 ML CUP MT SCH ×2 (09:23→20:33)
[2016-11-06] MEDS: SODIUM CHLORIDE 0.9% FLUSH 5 ML FLUSH IVF SCH (09:23)
[2016-11-06] MEDS: SODIUM CHLORIDE 0.9% FLUSH 5 ML FLUSH IV FLUSH SCH ×2 (09:23→20:32)
[2016-11-06] MEDS ORDERED: FLUMAZENIL 0.5 MG/5 ML VIAL IV PUSH ONE (14:00)
[2016-11-06] MEDS ORDERED: NALOXONE HCL 0.4 MG/ML AMP IV PUSH ONE (14:00)
[2016-11-06] MEDS ORDERED: ROCURONIUM INJ 50 MG/5 ML VIAL IV ONE ×2 (14:15→17:00)
[2016-11-06] MEDS ORDERED: ETOMIDATE 40 MG/20 ML VIAL IV PUSH ONE (14:15)
--- NOTE | 2016-11-06 14:22 | PD.PROCEDR ---
Procedure Note Procedure DATE: 11/06/16 PROCEDURE: Orotracheal intubation INDICATION: Respiratory failure DETAILS OF PROCEDURE The patient was placed in optimal position and preoxygenated with 100% FiO2 via bag valve mask. At the start oxygen saturation was 93%. The patient was administered 20 milligrams etomidate IV and 50 milligrams rocuronium IV. I entered the oropharynx with a size 4 GVL glidescope blade and obtained a grade 3 view of the airway. On single attempt a size 8.0 cuffed endotracheal tube was passed through the vocal cords. Correct tube location was confirmed with end tidal CO2 detector and by auscultating over bilateral lung fonseca. The endotracheal tube was secured with adhesive tape at a depth of 24 cm at the lips. The patient was connected to the ventilator. The patient tolerated the procedure well without any apparent complications. Oxygen saturations were maintained greater than 95% all times. STAT chest x-ray pending at time of dictation. Please note there is significant edema no around the vocal cords bilaterally. Steroids will be initiated see orders.. Carlos Hirsch MD Nov 06, 2016 14:22
[2016-11-06] MEDS ORDERED: DEXMEDETOMIDINE INJ 50 ML IV SCH (14:30)
[2016-11-06] MEDS ORDERED: FUROSEMIDE 40 MG/4 ML VIAL IV PUSH ONE (15:00)
--- NOTE | 2016-11-06 15:12 | RADRPT ---
EXAM DATE/TIME: 11/06/2016 14:39 [facility] COMPARISON: CHEST SINGLE AP, November 05, 2016, 9:21. INDICATIONS : Intubation. MEDICAL HISTORY : Hypertension. Diabetes mellitus type II. Chronic obstructive pulmonary disease. SURGICAL HISTORY : Appendectomy. Prostatectomy. Carotid endarterectomy. ENCOUNTER: Subsequent ACUITY: 4 - 6 days PAIN SCORE: Non-responsive. LOCATION: Bilateral chest FINDINGS: A single view of the chest demonstrates diffuse bilateral airspace disease. Small left pleural effusi on. Heart borderline enlarged. Endotracheal tube 1.5 centimeters above the veda. Left jugular centr al line and nasogastric tube are unchanged. The cardiomediastinal contours are unremarkable. Osseous structures are intact. CONCLUSION: 1. Diffuse bilateral airspace disease more prominent on current study. 2. Endotracheal tube 1.5 cm above the veda, can be slightly retracted. Chao Hensley MD on November 06, 2016 at 15:09 Board Certified Radiologist. This report was verified electronically.
[2016-11-06] MEDS: DEXAMETHASONE SOD PHOS 4 MG/ML VIAL IV PUSH SCH ×2 (15:31→20:32)
[2016-11-06] MEDS ORDERED: MIDAZOLAM HCL 2 MG/2 ML VIAL IV PUSH ONE (17:00)
--- NOTE | 2016-11-06 17:44 | PD.PROCEDR ---
Procedure Note Procedure DATE: 11/06/2016 PROCEDURE: Fiberoptic bronchoscopy diagnostic and therapeutic INDICATION: Acute respiratory failure/failed extubation DETAILS OF PROCEDURE The patient was placed in optimal position and preoxygenated with 100% FiO2 via ACV ventilation with FiO2 100%. Patient received 5 mg Versed IV. Followed by 50 mill grams rocuronium. The bronchial scope was inserted into the 8.0 ET tube and advanced through to the veda. Systematic inspection was then carried out anterior tracheobronchial tree. The bronchoscope was advanced to the right upper lobe, dissection was 30 cc of saline. Proscar was pulled back and advanced to the right middle lobe with minimal secretions visualized. Post was advanced to the right lower lobe 4 60 cc instilled and samples were obtained. The mucosal was friable. Few scant thick white mucous plugs were obtained. Bronchoscope was withdrawn back to the veda. Advanced through the left current lingula left upper/lower lobe. Left lower lobe was lavaged 60 cc of saline due to mucus plugging thick white secretions. These were cleared. Upon reinspection. No active bleeding was seen. Scope withdrawn and procedure was stopped. Saturations remained above 95% all times. Stat chest x-ray is currently pending... Carlos Hirsch MD Nov 06, 2016 17:43
[2016-11-06 18:17] LABS: BLOOD GAS BASE EXCESS -1.2 mmol/L (-2-2); BLOOD GAS HCO3 23 mmol/L (22-26); BLOOD GAS METHEMOGLOBIN 1.2 % (0-2); BLOOD GAS O2 HGB SATURATION 98 % (90-100); BLOOD GAS PCO2 37 mmHg (38-42); BLOOD GAS PO2 353 mmHg (61-120); BLOOD GAS TOTAL HGB 11.8 G/DL (12.0-16.0); TEMP CORR TO 98.6
[2016-11-06 18:18] LABS: CRITICAL VALUE NO; DRAW SITE LT RADIAL; FIO2 100 %; NUMBER OF ARTERIAL PUNCTURES 1; OXYGEN DEVICE VENTILATOR; STAT NO; ULNAR PULSE Y; VENT SETTINGS AC15/ 650/8PEEP
--- NOTE | 2016-11-06 18:19 | RADRPT ---
EXAM DATE/TIME: 11/06/2016 17:48 [facility] COMPARISON: CHEST SINGLE AP, November 06, 2016, 14:39. INDICATIONS : Shortness of breath, possible pulmonary disease. MEDICAL HISTORY : Hypertension. Diabetes mellitus type II. Chronic obstructive pulmonary disease. SURGICAL HISTORY : Appendectomy. Prostatectomy. Carotid endarterectomy. ENCOUNTER: Subsequent ACUITY: 4 - 6 days PAIN SCORE: Non-responsive. LOCATION: Bilateral chest FINDINGS: A single view of the chest demonstrates diffuse bilateral airspace disease. Probable small left pleur al effusion. Endotracheal tube, nasogastric tube and left jugular central line in stable position. O sseous structures are intact. CONCLUSION: Diffuse bilateral airspace disease and small left pleural effusion. Chao Hensley MD on November 06, 2016 at 18:16 Board Certified Radiologist. This report was verified electronically.
[2016-11-06 19:16] LABS: BRONCHOALVEOLAR LAVAGE WBC 1460 /MM3; LAVAGE TOTAL WBC COUNT 14.6 MILLION (4.7-7.1)
[2016-11-06 19:17] LABS: BRONCHOALVEOLAR LAVAGE RBC 2020 /MM3; BRONCHOAVEOLAR EOSINOPHILS 1 %; BRONCHOAVEOLAR HISTIOCYTES 1 %; BRONCHOAVEOLAR LYMPHOCYTES 0 %; BRONCHOAVEOLAR NEUTROPHILS 98 %
[2016-11-06] MEDS: cefTRIAXone INJ 2,000 MG in SODIUM CHLORIDE 0.9% INJ 100 ML IV SCH (20:31)
--- NOTE | 2016-11-06 22:36 | RADRPT ---
EXAM DATE/TIME: 11/06/2016 22:00 [facility] COMPARISON: CT BRAIN W/O CONTRAST, November 01, 2016, 15:09. INDICATIONS : Altered mental status. RADIATION DOSE: 56.35 CTDIvol (mGy) MEDICAL HISTORY : Cardiovascular disease. Alzheimer's. Diabetes mellitus type 2.Hypertension. C-diff. Dementia. SURGICAL HISTORY : Appendectomy. ENCOUNTER: Initial ACUITY: 1 day PAIN SCALE: Non-responsive LOCATION: cranial TECHNIQUE: Multiple contiguous axial images were obtained of the head. Using automated exposure control and adj ustment of the mA and/or kV according to patient size, radiation dose was kept as low as reasonably a chievable to obtain optimal diagnostic quality images. FINDINGS: There is marked central and cortical atrophy with dilatation of ventricular and sulcal spaces. There is a low attenuation throughout the white matter. Bilateral basal ganglia lacunar infarcts. There is no parenchymal hemorrhage, acute infarction or mass lesion identified. There are no extra-axial flui d collections appreciated. The posterior fossa is unremarkable with midline fourth ventricle. The p ortion of the orbits and paranasal sinuses visualized are unremarkable. CONCLUSION: 1. Cerebral atrophy and chronic ischemic small vessel vasculopathy. 2. Remote bilateral basal ganglia lacunar infarcts. Chao Hensley MD on November 06, 2016 at 22:34 Board Certified Radiologist. This report was verified electronically.
[2016-11-07] VITALS (15 sets, daily range): BP systolic 100–148; BP diastolic 56–74; PULSE 69–124; RESP 15–20; TEMP 97.5–98.6; O2SAT 95–100
[2016-11-07] LABS: POTASSIUM 3.7 MEQ/L (3.5-5.1)
[2016-11-07 00:02] LABS: HDL CHOLESTEROL 13.4 MG/DL (40.0-60.0)
[2016-11-07 00:03] LABS: LDL CHOLESTEROL 11 MG/DL (0-99)
[2016-11-07] MEDS: metroNIDAZOLE 500 MG INJ 100 ML IV SCH ×3 (00:16→16:38)
[2016-11-07] MEDS: CHLORHEXIDINE GLUCONATE 2 % 1 PACK (2 CLOTHS) TOP SCH ×2 (01:35→04:00)
[2016-11-07] MEDS: SODIUM CHLORIDE 23.4% INJ 38.5 MEQ in WATER STERILE FOR INJ 1,000 ML IV SCH ×2 (02:20→16:38)
[2016-11-07 03:09] LABS: AUTOMATED NEUTROPHIL # 14.5 TH/MM3 (1.8-7.7); BASOPHIL # 0.1 TH/MM3 (0-0.2); BASOPHIL % 0.4 % (0.0-2.0); EOSINOPHIL % 0.1 % (0.0-4.0); HEMATOCRIT 32.8 % (39.0-51.0); HEMO FLAGS DIFF FINAL; LYMPH % 3.2 % (9.0-44.0); LYMPHOCYTE # 0.5 TH/MM3 (1.0-4.8); MEAN CELL VOLUME 94.5 FL (80.0-100.0); MEAN CORPUSCULAR HEMOGLOBIN 31.6 PG (27.0-34.0); MEAN CORPUSCULAR HGB CONC 33.4 % (32.0-36.0); MONO % 1.6 % (0.0-8.0); NEUT % 94.7 % (16.0-70.0); PLATELET COUNT 212 TH/MM3 (150-450); RED BLOOD COUNT 3.47 MIL/MM3 (4.50-5.90); RED CELL DISTRIBUTION WIDTH 15.3 % (11.6-17.2); WHITE BLOOD COUNT 15.3 TH/MM3 (4.0-11.0)
[2016-11-07 03:37] LABS: ALKALINE PHOSPHATASE 154 U/L (45-117); ALT (GPT) 66 U/L (12-78); ANION GAP 13 MEQ/L (5-15); AST (GOT) 145 U/L (15-37); BICARBONATE 24.9 MEQ/L (21.0-32.0); BLOOD UREA NITROGEN 39 MG/DL (7-18); CHLORIDE 108 MEQ/L (98-107); CREATINE KINASE 1063 U/L (39-308); GLOMERULAR FILTRATION RATE 30 ML/MIN (>89); MAGNESIUM 2.3 MG/DL (1.5-2.5); POTASSIUM 3.8 MEQ/L (3.5-5.1); SODIUM (NA) 146 MEQ/L (136-145); TOTAL BILIRUBIN ADULT 0.6 MG/DL (0.2-1.0)
[2016-11-07] MEDS: RESP: ALBUTEROL 2.5 MG/IPRATROPIUM 0.5 MG NEB (SCH) INH ×4 (04:00→21:32)
[2016-11-07 04:08] LABS: CKMB 8.4 NG/ML (0.5-3.6)
[2016-11-07] MEDS ORDERED: AMIODARONE INJ 150 MG in DEXTROSE 5% IN WATER 100ML INJ 97 ML IV ONE ×2 (04:45)
[2016-11-07] MEDS: HEPARIN SODIUM - SQ 10,000 UNITS/ML VIAL SQ SCH ×2 (04:49→16:38)
[2016-11-07] MEDS: DEXAMETHASONE SOD PHOS 4 MG/ML VIAL IV PUSH SCH ×4 (04:50→21:00)
[2016-11-07] MEDS: FREE WATER G-TUBE SCH ×5 (05:14→22:08)
[2016-11-07] MEDS: METOCLOPRAMIDE HCL 10 MG/2 ML VIAL IV PUSH SCH ×3 (05:14→22:00)
[2016-11-07] MEDS: INSULIN NovoLIN REGULAR SUPPLEMENTAL SCALE SQ SCH ×4 (05:44→18:00)
--- NOTE | 2016-11-07 06:38 | RADRPT ---
EXAM DATE/TIME: 11/07/2016 04:36 [facility] COMPARISON: CHEST SINGLE AP, November 06, 2016, 17:48. INDICATIONS : Shortness of breath, possible pulmonary disease. MEDICAL HISTORY : Hypertension. Diabetes mellitus type II. Chronic obstructive pulmonary disease. SURGICAL HISTORY : Appendectomy. Prostatectomy. Carotid endarterectomy. ENCOUNTER: Subsequent ACUITY: 1 week PAIN SCORE: Non-responsive. LOCATION: Bilateral chest FINDINGS: Bilateral airspace disease, left greater than right similar to prior examination. Endotracheal tube r emains in satisfactory position. NG enters stomach. Left central line tip in superior vena cava, unch anged. CONCLUSION: 1. Stable exam compared with November 06. Kendall Caruso MD on November 07, 2016 at 6:35 Board Certified Radiologist. This report was verified electronically.
[2016-11-07] MEDS: SERTRALINE HCL 50 MG TAB PO SCH (10:03)
[2016-11-07] MEDS: AMIODARONE 200 MG TAB PO SCH ×2 (10:03→21:00)
[2016-11-07] MEDS: VANCOMYCIN 500 MG VIAL (FOR ORAL USE ONLY) PO SCH ×4 (10:03→21:00)
[2016-11-07] MEDS: ALBUMIN HUMAN 25% 25 GM/100 ML BAGP IV SCH (10:03)
[2016-11-07] MEDS: PANTOPRAZOLE SODIUM 40 MG VIAL IV SCH (10:03)
[2016-11-07] MEDS: CHLORHEXIDINE 0.12% (ORAL KIT) 15 ML CUP MT SCH ×2 (10:04→20:00)
[2016-11-07] MEDS: ARTIFICIAL TEARS OPTH SOLN 15 ML BTL EACH EYE SCH ×3 (10:04→18:13)
[2016-11-07] MEDS: SODIUM CHLORIDE 0.9% FLUSH 5 ML FLUSH IV FLUSH SCH ×2 (10:05→21:00)
[2016-11-07] MEDS: BENEPROTEIN POWDER 1 PACK G-TUBE SCH ×3 (10:15→18:00)
[2016-11-07] MEDS: SODIUM CHLORIDE 0.9% FLUSH 5 ML FLUSH IVF SCH (10:18)
--- NOTE | 2016-11-07 15:39 | HHI.CCPN ---
Subjective Remarks/Hospital Course 86-year-old male. Full code. Resident of [facility]. Date of admission 11/01/2016. Past medical history includes hypertension , COPD, right subdural hematoma status post lucien hole, Alzheimer dementia, chronic kidney disease stage III, BPH, depression, chronic benzodiazepine use and diabetes. Patient presented to [place] ED with several day history of decline in function including generalized illness clean diarrhea, shortness of breath. Recently the patient was diagnosed coronary artery pneumonia and started on an antibiotic. Today, the patient presents lethargic/no unresponsive. Initially seen on 6 L nasal cannula. Laboratories revealed sodium 174. Creatinine is 4.1. White blood cell count 24,000. Chest x-ray revealed possible pneumonia source. UA is currently pending. Patient was emergently intubated using 20 mg etomidate 100 mg succinylcholine due to altered mental status/airway protection 11/02: Afebrile. Adequate urine output. Currently on sedation vacation on CPAP trial. C. difficile positive noted. 11/03: Tmax 99.9. Currently afebrile. Positive BM. Tolerating tube feeding. Squeezes hand to command on sedation vacation but became more agitated and back in A. fib. EEG revealed swelling but no epileptic activity. MRI brain pending. 11/04: Noted that a wide-complex tachycardia overnight. Currently on amiodarone drip. Noted potassium 2.6, calcium low magnesium level. This all been replaced. Currently afebrile. Positive BM. Opens eyes and will squeeze hands occasionally bilateral x-rays. MRI brain revealed no acute intracranial findings. 11/05: Tmax 101.. Currently 99.3. High tube feed residuals currently at 600. 300 return. Recheck in one hour. Positive BM. Opens eyes to command and intermittently follows commands by squeezing hands. Currently on a fentanyl drip wean off. Subjective 11/06: Maximum 100.4. Currently afebrile. Resting comfortably in bed off fentanyl drip. Noted A. fib with RVR overnight on amiodarone drip. This will be discontinued. Placed on low-dose beta dwain in the interim. Positive BM. Not tolerating tube feeding. KUB pending. 11/07: Afebrile. The patient was extubated yesterday and reintubated overnight .The patient tolerating tube feeds for the last 24 hours, however noted elevated alkaline phosphatase. Objective Vital Signs Date Time Temp Pulse Resp B/P Pulse Ox O2 Delivery O2 Flow Rate FiO2 11/07/16 11:31 97 45 11/07/16 08:00 98.6 85 19 148/74 Intake and Output 11/06/16 11/06/16 11/07/16 08:00 16:00 00:00 Intake Total 1901 ml 2428 ml 1217 ml Output Total 1200 ml 1625 ml 1600 ml Balance 701 ml 803 ml -383 ml Result Diagram: 11/07/16 0300 11/07/16 0300 Other Results Laboratory Tests Test 11/06/16 18:12 Blood Gas Puncture Site LT RADIAL Blood Gas Patient Temperature 98.6 Blood Gas HCO3 23 mmol/L (22-26) Blood Gas Base Excess -1.2 mmol/L (-2-2) Blood Gas Oxygen Saturation 98 % (90-100) Arterial Blood pH 7.41 (7.380-7.420) Arterial Blood Partial 37 mmHg (38-42) Pressure CO2 Arterial Blood Partial 353 mmHg Pressure O2 (61-120) Arterial Blood Oxygen Content 17.0 Vol % (12.0-20.0) Arterial Blood 1.0 % (0-4) Carboxyhemoglobin Arterial Blood Methemoglobin 1.2 % (0-2) Blood Gas Hemoglobin 11.8 G/DL (12.0-16.0) Oxygen Delivery Device VENTILATOR Blood Gas Ventilator Setting AC15/ 650/8PEEP Blood Gas Inspired Oxygen 100 % Imaging Last Impressions Chest X-Ray 11/05/16 0000 Signed Impressions: Service Date/Time: Saturday, November 05, 2016 09:21 - CONCLUSION: Increase in left lower lung atelectasis versus consolidation and increase in small left pleural effusion. Sarthak Clark MD Brain MRI 11/03/16 0000 Signed Impressions: Service Date/Time: October 18:28 - CONCLUSION: Stable chronic changes as described above. No acute intracranial process. Antolin Pulido MD Head CT 11/01/16 1139 Signed Impressions: Service Date/Time: Tuesday, November 01, 2016 15:09 - CONCLUSION: 1. Cerebral atrophy and chronic ischemic small vessel vasculopathy. 2. Remote bilateral lacunar infarcts. Chao Hensley MD Renal Ultrasound 11/01/16 0000 Signed Impressions: Service Date/Time: Tuesday, November 01, 2016 16:47 - CONCLUSION: 1. Kidneys are slightly echogenic which can be seen with medical renal disease. 2. Urinary bladder decompressed by Masters catheter. Chao Hensley MD Abdomen/Pelvis CT 11/01/16 0000 Signed Impressions: Service Date/Time: Tuesday, November 01, 2016 15:12 - CONCLUSION: 1. No acute finding is identified within the abdomen or pelvis. There is a segment of mildly dilated mid jejunum in the left abdomen but otherwise there are no findings present to suggest bowel obstruction. 2. Severe atherosclerotic disease. 3. Airspace consolidation in both lower lobes, left greater than right. Arvind Kyle MD Objective Remarks GENERAL: 86-year-old male, critically ill currently resting in bed shivering SKIN: Warm and dry.abrasions on knees bilaterally and sacral decubitus ulcer/ regimen stage I, noticed cellulitic weeping from bilateral upper edematous extremities HEAD: Atraumatic. Normocephalic. EYES: Left pupil is 2 mm and irregular. Right pupil is pinpoint in reactive to light. No scleral icterus. No injection or drainage. ENT: No nasal bleeding or discharge. Mucous membranes pink and moist. NECK: Trachea midline. No JVD. CARDIOVASCULAR: Regular rate and rhythm. S1, S2. No S4. Without murmur RESPIRATORY: Coarse crackles appreciated bilaterally with end expiratory wheeze. Breath sounds equal bilaterally. GASTROINTESTINAL: Abdomen soft, non-tender, nondistended. Hepatic and splenic margins not palpable. MUSCULOSKELETAL: Extremities without noted in peripheral edema. No obvious deformities. NEUROLOGICAL: Intubated. Positive gag. Positive corneal reflex. Downgoing toes. Withdraws to pain and spontaneously moves all 4 extremities. Urinary Catheter: Yes Masters insert reason: Measure Accurate Output Date of Insertion: Nov 03, 2016 Line: Central Venous Catheter Side: Left Location: Internal, Jugular A/P Assessment and Plan Neuro/Psych: Acute toxic metabolic encephalopathy Alzheimer's dementia Depression History of right subdural hematoma status post bur hole Chronic benzodiazepine use Chronic narcotic use History of insomnia No intravenous sedation noted at this time, following commands by squeezing my hands, on CPAP Goal of RASS -2 while on sedation. Daily sedation vacation CT head 11/02 revealed bilateral lacunar basal ganglia infarct/old with ventriculomegaly 11/03 - MRI brain revealed no acute intracranial findings EEG shows no signs of seizure activity Patient is on Xanax 0.25 mg every 6 hours at [facility] for anxiety. This currently has been held Continue sertraline 25 mg by mouth daily for depression Holding melatonin 3 mg at night for insomnia CV: History of right CVA Hypertension History of atrial fibrillation currently normal sinus rhythm Lactic acidosis Elevated troponin likely demand ischemia EKG reveals sinus tachycardia with diffuse ST T changes throughout multiple leads likely related to dehydration/demand ischemia Cycle troponins. Peaked at 1.16. Currently 0.83 and trending downward Echo revealed EF 55-60%. Will require nuclear stress test prior to discharge Holding home medications lisinopril 10 mg daily in light of hypotension/acute kidney injury Currently on sterile water with 2 ampule sodium bicarbonate 150 cc an hour, discontinued Discontinued amiodarone drip or 11/06. Supplement electrolytes specifically potassium. Resp: Acute hypoxemic respiratory failure ACV 14/500/5/40 - CPAP 8/5 and 40% Ventilator bundle Bronchodilator therapy every 6 hours and as needed Spontaneous breathing trials when indicated Chest x-ray reveals possible left upper lobe infiltrate. Follow-up ABG GI: Diarrhea/C. difficile positive Currently on Nepro goal 50 cc an hour. Resolution of high residuals Add prokinetic agent Reglan 5 every 8hrs Protonix for GI prophylaxis. Protonix [address] home CT abdomen/pelvis revealed no obstruction or possible some mild dilatation the mid jejunum. Atherosclerotic vascular disease KUB 11/07 nonspecific : History of BPH status post TURP Masters has been placed for accurate I's and O's in a critically ill patient Endo: Diabetes mellitus type 2 Hyperglycemia Sliding-scale insulin with Accu-Cheks every 6 hours to maintain euglycemia/low protocol Adjusted sliding-scale insulin secondary to hypoglycemic episode see above Renal: Acute on chronic kidney injury Rhabdomyolysis Progressive crystalloid hydration. Avoid nephrotoxic drugs Renal ultrasound no hydronephrosis. Possibly early medical renal disease. Negative urine eosinophils CPKs trending downward. Currently [id number] Heme: Leukocytosis Normocytic anemia Daily CBC/CMP. Monitor trends ID: Likely healthcare associated pneumonia -Klebsiella and staph aureus C. difficile positive Received vancomycin ED. Aztreonam and Flagyl. Day #6 discontinued 11/05 IV Flagyl/by mouth vancomycin for C. difficile day #5 Start on Rocephin 2 g IV 24 day #[address] Pepe 11/01 - Blood cultures 2 no growth, urine no growth, sputum revealed Klebsiella /staph aureus, influenza negative, urine Legionella and pneumococcal antigens negative ID consult for antibiotic management appreciated FEN: Hypernatremia Hyperchloridemia Hypopotassemia Currently on sterile water with 2 ampules sodium bicarbonate 150 cc an hour. 11/06- Changed to quarter normal saline at 100 cc an hour Free water flushes 250 cc every 6 hours. Electrolytes repleted MSK: History of left total knee arthroplasty PT evaluate and treat Sacral decubitus-wound care consulted follow-up recommendations Access -Left IJ CVL day 5 Prophylaxis - GI - Protonix - DVT - SCD/heparin subcutaneous Critical Care: The total care time was 41 minutes. Time to perform other separately billable procedures was not included in the critical care time. Attempted extubation 11/06 at 1300. Passed weaning parameters. Patient had a cuff leak. Patient lasted approximately 30 minutes. Significant secretions and unable to cough E intubation. On visualization for intubation significant vocal cord edema. Decadron 48 hours. Physician Griselda Waite MD Nov 07, 2016 15:39
[2016-11-07 16:54] LABS: BLOOD GAS BASE EXCESS 0.7 mmol/L (-2-2); BLOOD GAS CARBOXYHEMOGLOBIN 1.3 % (0-4); BLOOD GAS HCO3 24 mmol/L (22-26); BLOOD GAS METHEMOGLOBIN 1.4 % (0-2); BLOOD GAS O2 HGB SATURATION 94 % (90-100); BLOOD GAS OXYGEN CONTENT 12.4 Vol % (12.0-20.0); BLOOD GAS PCO2 31 mmHg (38-42); BLOOD GAS PO2 83 mmHg (61-120); BLOOD GAS TOTAL HGB 9.3 G/DL (12.0-16.0); CRITICAL VALUE NO; TEMP CORR TO 98.6
[2016-11-07 16:55] LABS: DRAW SITE RT RADIAL; FIO2 45 %; NUMBER OF ARTERIAL PUNCTURES 1; OXYGEN DEVICE VENTILATOR; STAT NO; ULNAR PULSE PRESENT; VENT SETTINGS CPAP 5/8PS
--- NOTE | 2016-11-07 17:56 | HHI.IDPN ---
Subjective Subjective Remarks event s noted pt was extubated and reintubated no fever x 2 days sp bronch - no growth @ 24 hrs tolearting CFTX uneventfully Antibiotics CFTX vanco PO flagl IV Allergies: Coded Allergies: Ativan (Unverified Allergy, Severe, 11/01/16) Bactrim (Verified Allergy, Severe, hives, 11/01/16) Levaquin (Verified Allergy, Severe, 11/01/16) Morphine (Unverified Allergy, Severe, 11/01/16) Penicillin (Unverified Allergy, Severe, 11/01/16) Tuna (Unverified Allergy, Severe, 11/01/16) Hydrocortisone (Verified Allergy, Unknown, UNKNOWN, 11/01/16) Saccharin (Verified Allergy, Unknown, UNKNOWN , 11/01/16) Objective . Vital Signs Date Time Temp Pulse Resp B/P Pulse Ox O2 Delivery O2 Flow Rate FiO2 11/07/16 15:26 96 45 11/07/16 11:31 97 45 11/07/16 08:51 95 45 11/07/16 08:00 45 11/07/16 08:00 98.6 85 19 148/74 11/07/16 08:00 85 11/07/16 06:00 88 11/07/16 04:14 98 45 11/07/16 04:00 45 11/07/16 04:00 124 11/07/16 04:00 97.9 124 16 100/65 100 11/07/16 02:00 81 11/07/16 01:27 99 45 11/07/16 00:00 98.1 81 15 121/64 98 11/07/16 00:00 81 11/07/16 00:00 45 11/06/16 22:22 98 100 11/06/16 22:00 91 11/06/16 21:20 98 50 11/06/16 20:00 98.7 92 17 125/64 98 11/06/16 20:00 50 11/06/16 20:00 91 11/06/16 18:00 103 11/06/16 11/06/16 11/07/16 15:00 23:00 07:00 Intake Total 2428 ml 1217 ml 1277 ml Output Total 1625 ml 1600 ml 900 ml Balance 803 ml -383 ml 377 ml IV Total 1745 ml 1037 ml 803 ml Tube Feeding 183 ml 174 ml Albumin 100 ml Tube Irrigant 500 ml 80 ml 300 ml Output Urine Total 825 ml 1600 ml 900 ml Stool Total 800 ml . Laboratory Tests Test 11/06/16 11/07/16 03:46 03:00 White Blood Count 15.2 TH/MM3 15.3 TH/MM3 Red Blood Count 3.24 MIL/MM3 3.47 MIL/MM3 Hemoglobin 10.2 GM/DL 11.0 GM/DL Hematocrit 30.4 % 32.8 % Mean Corpuscular Volume 94.0 FL 94.5 FL Mean Corpuscular Hemoglobin 31.5 PG 31.6 PG Mean Corpuscular Hemoglobin 33.5 % 33.4 % Concent Red Cell Distribution Width 15.1 % 15.3 % Platelet Count 165 TH/MM3 212 TH/MM3 Mean Platelet Volume 10.9 FL 10.8 FL Neutrophils (%) (Auto) 84.4 % 94.7 % Lymphocytes (%) (Auto) 7.0 % 3.2 % Monocytes (%) (Auto) 5.5 % 1.6 % Eosinophils (%) (Auto) 2.7 % 0.1 % Basophils (%) (Auto) 0.4 % 0.4 % Neutrophils # (Auto) 12.8 TH/MM3 14.5 TH/MM3 Lymphocytes # (Auto) 1.1 TH/MM3 0.5 TH/MM3 Monocytes # (Auto) 0.8 TH/MM3 0.2 TH/MM3 Eosinophils # (Auto) 0.4 TH/MM3 0.0 TH/MM3 Basophils # (Auto) 0.1 TH/MM3 0.1 TH/MM3 CBC Comment DIFF FINAL DIFF FINAL Differential Comment Laboratory Tests Test 11/06/16 11/06/16 11/07/16 03:46 20:30 03:00 Sodium Level 149 MEQ/L 146 MEQ/L Potassium Level 3.4 MEQ/L 3.7 MEQ/L 3.8 MEQ/L Chloride Level 114 MEQ/L 108 MEQ/L Carbon Dioxide Level 28.4 MEQ/L 24.9 MEQ/L Anion Gap 7 MEQ/L 13 MEQ/L Blood Urea Nitrogen 37 MG/DL 39 MG/DL Creatinine 2.13 MG/DL 2.11 MG/DL Estimat Glomerular Filtration 29 ML/MIN 30 ML/MIN Rate Random Glucose 105 MG/DL 173 MG/DL Calcium Level 7.1 MG/DL 7.8 MG/DL Protein Corrected Calcium 8.4 MG/DL Phosphorus Level 2.4 MG/DL 4.8 MG/DL Magnesium Level 2.3 MG/DL 2.3 MG/DL Total Bilirubin 0.4 MG/DL 0.6 MG/DL Aspartate Amino Transf 189 U/L 145 U/L (AST/SGOT) Alanine Aminotransferase 66 U/L 66 U/L (ALT/SGPT) Alkaline Phosphatase 103 U/L 154 U/L Total Creatine Kinase 1279 U/L 1063 U/L Creatine Kinase MB 6.7 NG/ML 8.4 NG/ML Creatine Kinase MB % 0.5 % 0.8 % Total Protein 4.8 GM/DL 5.8 GM/DL Albumin 1.3 GM/DL 2.4 GM/DL Triglycerides Level 130 MG/DL Cholesterol Level LESS THAN 50 MG/DL LDL Cholesterol 11 MG/DL HDL Cholesterol 13.4 MG/DL Cholesterol/HDL Ratio 3.73 RATIO Ammonia LESS THAN 10 MCMOL/L Microbiology Date/Time Procedure Status Source Growth 11/06/16 17:15 Gram Stain - Final Resulted Bronchial Washings Right Lower Lobe 11/06/16 17:15 Bronchial Culture - Preliminary Resulted Bronchial Washings Right Lower Lobe NO GROWTH IN 24 HOURS. 11/06/16 17:15 Acid Fast Stain Received Bronchial Washings Right Lower Lobe Pending 11/06/16 17:15 Mycobacterial Culture Received Bronchial Washings Right Lower Lobe Pending 11/06/16 17:15 Fungal Smear - Final Resulted Bronchial Washings Right Lower Lobe NO FUNGAL ELEMENTS SEEN. 11/06/16 17:15 Fungal Culture Resulted Bronchial Washings Right Lower Lobe Pending Imaging Last Impressions Chest X-Ray 11/07/16 0600 Signed Impressions: Service Date/Time: Monday, November 07, 2016 04:36 - CONCLUSION: 1. Stable exam compared with November 06. Kendall Caruso MD Head CT 11/06/16 0000 Signed Impressions: Service Date/Time: Sunday, November 06, 2016 22:00 - CONCLUSION: 1. Cerebral atrophy and chronic ischemic small vessel vasculopathy. 2. Remote bilateral basal ganglia lacunar infarcts. Chao Hensley MD Abdomen X-Ray 11/06/16 0000 Signed Impressions: Service Date/Time: Sunday, November 06, 2016 07:43 - CONCLUSION: Benign-appearing abdomen. Arvind Márquez MD Brain MRI 11/03/16 0000 Signed Impressions: Service Date/Time: October 18:28 - CONCLUSION: Stable chronic changes as described above. No acute intracranial process. Antolin Pulido MD Renal Ultrasound 11/01/16 0000 Signed Impressions: Service Date/Time: Tuesday, November 01, 2016 16:47 - CONCLUSION: 1. Kidneys are slightly echogenic which can be seen with medical renal disease. 2. Urinary bladder decompressed by Masters catheter. Chao Hensley MD Abdomen/Pelvis CT 11/01/16 0000 Signed Impressions: Service Date/Time: Tuesday, November 01, 2016 15:12 - CONCLUSION: 1. No acute finding is identified within the abdomen or pelvis. There is a segment of mildly dilated mid jejunum in the left abdomen but otherwise there are no findings present to suggest bowel obstruction. 2. Severe atherosclerotic disease. 3. Airspace consolidation in both lower lobes, left greater than right. Arvind Kyle MD Physical Exam CONSTITUTIONAL/GENERAL: This is an adequately nourished patient, in no apparent distress. TUBES/LINES/DRAINS: SKIN: No jaundice, rashes, or lesions. Skin temperature appropriate. Not diaphoretic. HEAD: Atraumatic. Normocephalic. EYES: Pupils equal and round and reactive. Extraocular motions intact. No scleral icterus. No injection or drainage. Fundi not examined. ENT: Orally intubated NECK: Trachea midline. Supple, nontender. No palpable thyroid enlargement or nodularity. CARDIOVASCULAR: Regular rate and rhythm without murmurs, gallops, or rubs. No JVD. Peripheral pulses not palpale on bl feet RESPIRATORY/CHEST: Scattered rhonchi. GASTROINTESTINAL: Abdomen soft, non-tender ( no reaction to palpation), moderately distended. No hepato-splenomegaly, or palpable masses. No guarding. Bowel sounds diminished Incontinent of brown liquid stool GENITOURINARY: Without palpable bladder distension. Masters catheter in place. MUSCULOSKELETAL: Extremities without clubbing, + 1-2 edema. No joint tenderness or effusion noted. No calf tenderness. No mottling or clubbing. no cyanosis, LYMPHATICS: No palpable cervical or supraclavicular adenopathy. NEUROLOGICAL: Sedated, unresponsives. PSYCHIATRIC: unable to assess Assessment & Plan Remarks PNA, Klebsiella, MSSA - most recent CHANTELLE clx neg so far Acute VDRF, - required re-intubation Hypervirlent strain of C.diff - cont to have high volume liquid diarrhea Multiple abx allergies, including PCN, Levaquine, bactrim, sustantially limiting aailbale abx choice, though it appears from EMR that pt had CFTX and cefazoline uneventfully in 2015 - cont po vanco, IV flagyl for C.diff -cont CFTX for PNA - fu BAL clx untill final, will adjust abx por final BAL report Aletha Pepe MD Nov 07, 2016 17:56
[2016-11-07] MEDS: cefTRIAXone INJ 2,000 MG in SODIUM CHLORIDE 0.9% INJ 100 ML IV SCH (20:00)
[2016-11-07] MEDS: MIDAZOLAM 100 MG/ML INJ 100 ML IV SCH (20:32)
[2016-11-08] VITALS (18 sets, daily range): BP systolic 144–175; BP diastolic 66–82; PULSE 63–89; RESP 14–21; TEMP 96.3–98.4; O2SAT 88–100
[2016-11-08] MEDS: CHLORHEXIDINE GLUCONATE 2 % 1 PACK (2 CLOTHS) TOP SCH ×2 (03:24→04:00)
[2016-11-08] MEDS: DEXAMETHASONE SOD PHOS 4 MG/ML VIAL IV PUSH SCH ×2 (03:24→08:10)
[2016-11-08] MEDS: HEPARIN SODIUM - SQ 10,000 UNITS/ML VIAL SQ SCH ×2 (03:24→17:58)
[2016-11-08] MEDS: metroNIDAZOLE 500 MG INJ 100 ML IV SCH ×3 (03:26→17:59)
[2016-11-08] MEDS: RESP: ALBUTEROL 2.5 MG/IPRATROPIUM 0.5 MG NEB (SCH) INH ×4 (04:45→21:13)
[2016-11-08] MEDS: METOCLOPRAMIDE HCL 10 MG/2 ML VIAL IV PUSH SCH ×3 (06:00→20:45)
[2016-11-08] MEDS: FREE WATER G-TUBE SCH ×3 (06:00→17:58)
[2016-11-08] MEDS: SODIUM CHLORIDE 23.4% INJ 38.5 MEQ in WATER STERILE FOR INJ 1,000 ML IV SCH (06:06)
[2016-11-08 06:10] LABS: MEAN CELL VOLUME 96.4 FL (80.0-100.0); MEAN CORPUSCULAR HEMOGLOBIN 31.6 PG (27.0-34.0); MEAN CORPUSCULAR HGB CONC 32.7 % (32.0-36.0); PLATELET COUNT 242 TH/MM3 (150-450); RED BLOOD COUNT 3.11 MIL/MM3 (4.50-5.90); RED CELL DISTRIBUTION WIDTH 15.6 % (11.6-17.2); REVIEW FLAG FINAL; WHITE BLOOD COUNT 13.5 TH/MM3 (4.0-11.0)
--- NOTE | 2016-11-08 06:59 | RADRPT ---
EXAM DATE/TIME: 11/08/2016 05:55 [facility] COMPARISON: CHEST SINGLE AP, November 07, 2016, 4:36. INDICATIONS : Respiratory failure. MEDICAL HISTORY : Diabetes mellitus type II. A-fib. SURGICAL HISTORY : Coronary artery stent. ENCOUNTER: Subsequent ACUITY: 1 week PAIN SCORE: Non-responsive. LOCATION: Bilateral chest FINDINGS: Endotracheal tube tip in satisfactory position. Left central line in superior vena cava. NG enters st omach. Bilateral air space consolidation in the lungs worsened in the right upper lobe since November 07. CONCLUSION: 1. Increasing right upper lobe consolidation in the last day most characteristic of pneumonia or aspi ration. Basilar airspace disease and pleural effusions persist. Support apparatus unchanged. Kendall Caruso MD on November 08, 2016 at 6:56 Board Certified Radiologist. This report was verified electronically.
[2016-11-08 07:04] LABS: BICARBONATE 26.6 MEQ/L (21.0-32.0); MAGNESIUM 2.4 MG/DL (1.5-2.5); POTASSIUM 3.5 MEQ/L (3.5-5.1)
[2016-11-08 07:43] LABS: CALCIUM-PROTEIN CORRECTED 7.9 MG/DL (8.5-10.1)
[2016-11-08] MEDS: PANTOPRAZOLE SODIUM 40 MG VIAL IV SCH (08:10)
[2016-11-08] MEDS: VANCOMYCIN 500 MG VIAL (FOR ORAL USE ONLY) PO SCH ×4 (08:10→20:45)
[2016-11-08] MEDS: BENEPROTEIN POWDER 1 PACK G-TUBE SCH ×3 (08:10→17:58)
[2016-11-08] MEDS: SERTRALINE HCL 50 MG TAB PO SCH (08:10)
[2016-11-08] MEDS: ARTIFICIAL TEARS OPTH SOLN 15 ML BTL EACH EYE SCH ×3 (08:10→17:58)
[2016-11-08] MEDS: AMIODARONE 200 MG TAB PO SCH ×2 (08:10→20:41)
[2016-11-08] MEDS: SODIUM CHLORIDE 0.9% FLUSH 5 ML FLUSH IV FLUSH SCH ×2 (08:11→20:41)
[2016-11-08] MEDS: CHLORHEXIDINE 0.12% (ORAL KIT) 15 ML CUP MT SCH ×2 (08:11→20:00)
[2016-11-08] MEDS: SODIUM CHLORIDE 0.9% FLUSH 5 ML FLUSH IVF SCH (08:11)
[2016-11-08 08:16] LABS: CKMB 6.8 NG/ML (0.5-3.6)
[2016-11-08] MEDS: INSULIN NovoLIN REGULAR SUPPLEMENTAL SCALE SQ SCH ×2 (12:00)
[2016-11-08] MEDS: RESP: ALBUTEROL 2.5 MG/IPRATROPIUM 0.5 MG NEB (PRN) INH (14:05)
[2016-11-08] MEDS ORDERED: CALCIUM GLUCONATE INJ 2 GM in DEXTROSE 5% IN WATER 100ML INJ 100 ML IV ONE ×2 (15:15)
[2016-11-08] MEDS ORDERED: ALPRAZolam 0.25 MG TAB PO PRN (15:15)
--- NOTE | 2016-11-08 15:41 | HHI.CCPN ---
Subjective Remarks/Hospital Course 86-year-old male. Full code. Resident of [facility]. Date of admission 11/01/2016. Past medical history includes hypertension , COPD, right subdural hematoma status post lucien hole, Alzheimer dementia, chronic kidney disease stage III, BPH, depression, chronic benzodiazepine use and diabetes. Patient presented to [place] ED with several day history of decline in function including generalized illness clean diarrhea, shortness of breath. Recently the patient was diagnosed coronary artery pneumonia and started on an antibiotic. Today, the patient presents lethargic/no unresponsive. Initially seen on 6 L nasal cannula. Laboratories revealed sodium 174. Creatinine is 4.1. White blood cell count 24,000. Chest x-ray revealed possible pneumonia source. UA is currently pending. Patient was emergently intubated using 20 mg etomidate 100 mg succinylcholine due to altered mental status/airway protection 11/02: Afebrile. Adequate urine output. Currently on sedation vacation on CPAP trial. C. difficile positive noted. 11/03: Tmax 99.9. Currently afebrile. Positive BM. Tolerating tube feeding. Squeezes hand to command on sedation vacation but became more agitated and back in A. fib. EEG revealed swelling but no epileptic activity. MRI brain pending. 11/04: Noted that a wide-complex tachycardia overnight. Currently on amiodarone drip. Noted potassium 2.6, calcium low magnesium level. This all been replaced. Currently afebrile. Positive BM. Opens eyes and will squeeze hands occasionally bilateral x-rays. MRI brain revealed no acute intracranial findings. 11/05: Tmax 101.. Currently 99.3. High tube feed residuals currently at 600. 300 return. Recheck in one hour. Positive BM. Opens eyes to command and intermittently follows commands by squeezing hands. Currently on a fentanyl drip wean off. Subjective 11/06: Maximum 100.4. Currently afebrile. Resting comfortably in bed off fentanyl drip. Noted A. fib with RVR overnight on amiodarone drip. This will be discontinued. Placed on low-dose beta dwain in the interim. Positive BM. Not tolerating tube feeding. KUB pending. 11/07: Afebrile. The patient was extubated yesterday and reintubated overnight .The patient tolerating tube feeds for the last 24 hours, however noted elevated alkaline phosphatase. 11/08: Patient remains on CPAP, tolerated 9 hours last evening. Plan for continue CPAP trials throughout the night tonight. All sedation has been discontinued. Home medications Xanax 0.25 when necessary for anxiety. WBC count trending down. Objective Vital Signs Date Time Temp Pulse Resp B/P Pulse Ox O2 Delivery O2 Flow Rate FiO2 11/08/16 14:42 50 11/08/16 14:33 94 11/08/16 12:00 97.8 67 14 148/68 Intake and Output 11/07/16 11/07/16 11/08/16 08:00 16:00 00:00 Intake Total 1277 ml 2031 ml 878 ml Output Total 900 ml 1025 ml 725 ml Balance 377 ml 1006 ml 153 ml Result Diagram: 11/08/16 0531 11/08/16 0531 Other Results Microbiology Date/Time Procedure Status Source Growth 11/06/16 17:15 Gram Stain - Final Complete Bronchial Washings Right Lower Lobe 11/06/16 17:15 Bronchial Culture - Final Complete Bronchial Washings Right Lower Lobe RARE GROWTH NORMAL RESPIRATORY RAMIRO Laboratory Tests Test 11/07/16 16:46 Blood Gas Puncture Site RT RADIAL Blood Gas Patient Temperature 98.6 Blood Gas HCO3 24 mmol/L (22-26) Blood Gas Base Excess 0.7 mmol/L (-2-2) Blood Gas Oxygen Saturation 94 % (90-100) Arterial Blood pH 7.49 (7.380-7.420) Arterial Blood Partial 31 mmHg (38-42) Pressure CO2 Arterial Blood Partial 83 mmHg Pressure O2 (61-120) Arterial Blood Oxygen Content 12.4 Vol % (12.0-20.0) Arterial Blood 1.3 % (0-4) Carboxyhemoglobin Arterial Blood Methemoglobin 1.4 % (0-2) Blood Gas Hemoglobin 9.3 G/DL (12.0-16.0) Oxygen Delivery Device VENTILATOR Blood Gas Ventilator Setting CPAP 5/8PS Blood Gas Inspired Oxygen 45 % Imaging Last Impressions Chest X-Ray 11/05/16 0000 Signed Impressions: Service Date/Time: Saturday, November 05, 2016 09:21 - CONCLUSION: Increase in left lower lung atelectasis versus consolidation and increase in small left pleural effusion. Sarthak Clark MD Brain MRI 11/03/16 0000 Signed Impressions: Service Date/Time: October 18:28 - CONCLUSION: Stable chronic changes as described above. No acute intracranial process. Antolin Pulido MD Head CT 11/01/16 1139 Signed Impressions: Service Date/Time: Tuesday, November 01, 2016 15:09 - CONCLUSION: 1. Cerebral atrophy and chronic ischemic small vessel vasculopathy. 2. Remote bilateral lacunar infarcts. Chao Hensley MD Renal Ultrasound 11/01/16 0000 Signed Impressions: Service Date/Time: Tuesday, November 01, 2016 16:47 - CONCLUSION: 1. Kidneys are slightly echogenic which can be seen with medical renal disease. 2. Urinary bladder decompressed by Masters catheter. Chao Hensley MD Abdomen/Pelvis CT 11/01/16 0000 Signed Impressions: Service Date/Time: Tuesday, November 01, 2016 15:12 - CONCLUSION: 1. No acute finding is identified within the abdomen or pelvis. There is a segment of mildly dilated mid jejunum in the left abdomen but otherwise there are no findings present to suggest bowel obstruction. 2. Severe atherosclerotic disease. 3. Airspace consolidation in both lower lobes, left greater than right. Arvind Kyle MD Objective Remarks GENERAL: 86-year-old male, sleeping, on CPAP SKIN: Warm and dry.abrasions on knees bilaterally and sacral decubitus ulcer/ regimen stage I, noticed cellulitic weeping from bilateral upper edematous extremities HEAD: Atraumatic. Normocephalic. EYES: Left pupil is 2 mm and irregular. Right pupil is pinpoint in reactive to light. No scleral icterus. No injection or drainage. ENT: No nasal bleeding or discharge. Mucous membranes pink and moist. NECK: Trachea midline. No JVD. CARDIOVASCULAR: Regular rate and rhythm. S1, S2. No S4. Without murmur RESPIRATORY: Noted expiratory wheeze. Breath sounds equal bilaterally. GASTROINTESTINAL: Abdomen soft, non-tender, nondistended. Hepatic and splenic margins not palpable. MUSCULOSKELETAL: Extremities without noted in peripheral edema. No obvious deformities. NEUROLOGICAL: Intubated.RASS -3. Currently not following commands lethargic. Urinary Catheter: Yes Date of Insertion: Nov 03, 2016 Line: Central Venous Catheter Side: Left Location: Internal, Jugular A/P Assessment and Plan Neuro/Psych: Acute toxic metabolic encephalopathy Alzheimer's dementia Depression History of right subdural hematoma status post bur hole Chronic benzodiazepine use Chronic narcotic use History of insomnia The patient received sedation throughout the night and has been lethargic today Goal of RASS -2 while on sedation. IV Sedation discontinued Xanax 0.25 every 12 hours when necessary for anxiety. Home medication is Xanax every [address] head 11/02 revealed bilateral lacunar basal ganglia infarct/old with ventriculomegaly 11/03 - MRI brain revealed no acute intracranial findings EEG shows no signs of seizure activity Continue sertraline 25 mg by mouth daily for depression Holding melatonin 3 mg at night for insomnia CV: History of right CVA Hypertension History of atrial fibrillation currently normal sinus rhythm Lactic acidosis Elevated troponin likely demand ischemia EKG reveals sinus tachycardia with diffuse ST T changes throughout multiple leads likely related to dehydration/demand ischemia Cycle troponins. Peaked at 1.16. Currently 0.83 and trending downward Echo revealed EF 55-60%. Will require nuclear stress test prior to discharge Holding home medications lisinopril 10 mg daily in light of hypotension/acute kidney injury Discontinued amiodarone drip or 11/06. Supplement electrolytes specifically potassium. Potassium 30 mEq x 1 dose today, potassium level 3.5 Resp: Acute hypoxemic respiratory failure ACV 14/500/5/40 - CPAP 8/5 and 40% Ventilator bundle Bronchodilator therapy every 6 hours and as needed Spontaneous breathing trials when indicated Chest x-ray reveals possible left upper lobe infiltrate. Continue CPAP trials as long as tolerated by patient GI: Diarrhea/C. difficile positive Currently on Nepro goal 50 cc an hour. Minimal residuals Add prokinetic agent Reglan 5 every 8hrs Protonix for GI prophylaxis. Protonix 40 mg daily at home CT abdomen/pelvis revealed no obstruction or possible some mild dilatation the mid jejunum. Atherosclerotic vascular disease KUB 11/07 nonspecific : History of BPH status post TURP Maintain Masters Strict I's and O's Endo: Diabetes mellitus type 2 Hyperglycemia Sliding-scale insulin with Accu-Cheks every 6 hours to maintain euglycemia/low protocol Adjusted sliding-scale insulin secondary to hypoglycemic episode Renal: Acute on chronic kidney injury Rhabdomyolysis Progressive crystalloid hydration. Avoid nephrotoxic drugs Renal ultrasound no hydronephrosis. Possibly early medical renal disease. Negative urine eosinophils CPKs continue to trend downward. Currently 617 from [phone] Heme: Leukocytosis Normocytic anemia Daily CBC/CMP. Monitor trends ID: Likely healthcare associated pneumonia -Klebsiella and staph aureus C. difficile positive Received vancomycin ED. Aztreonam and Flagyl. Day #6 discontinued 11/05 IV Flagyl/by mouth vancomycin for C. difficile day #5 Start on Rocephin 2 g IV 24 day #[address] Pepe 11/01 - Blood cultures 2 no growth, urine no growth, sputum revealed Klebsiella /staph aureus, influenza negative, urine Legionella and pneumococcal antigens negative ID consult for antibiotic management Dr. Pepe FEN: Hypernatremia Hyperchloridemia Hypopotassemia 11/06- 09/14 NS 100 cc/hr Free water flushes 250 cc every 6 hours. Electrolytes repleted MSK: History of left total knee arthroplasty PT evaluate and treat Sacral decubitus-wound care consulted follow-up recommendations Access -Left IJ CVL day 5 Prophylaxis - GI - Protonix - DVT - SCD/heparin subcutaneous Critical Care: Level 3. Physician Griselda Waite MD Nov 08, 2016 15:41
[2016-11-08] MEDS ORDERED: POTASSIUM BICARBONATE 25 MEQ EFFERVESCENT TAB PO ONE (15:45)
[2016-11-08] MEDS: cefTRIAXone INJ 2,000 MG in SODIUM CHLORIDE 0.9% INJ 100 ML IV SCH (20:41)
[2016-11-09] VITALS (17 sets, daily range): BP systolic 133–157; BP diastolic 58–93; PULSE 71–117; RESP 16–25; TEMP 97.9–100.1; O2SAT 90–100
[2016-11-09] MEDS: metroNIDAZOLE 500 MG INJ 100 ML IV SCH ×3 (01:30→16:08)
[2016-11-09] MEDS: RESP: ALBUTEROL 2.5 MG/IPRATROPIUM 0.5 MG NEB (SCH) INH (03:47)
[2016-11-09] MEDS: CHLORHEXIDINE GLUCONATE 2 % 1 PACK (2 CLOTHS) TOP SCH ×2 (04:00)
[2016-11-09 05:59] LABS: BASOPHIL % 0.3 % (0.0-2.0); HEMATOCRIT 27.6 % (39.0-51.0); LYMPH % 5.4 % (9.0-44.0); LYMPHOCYTE # 0.8 TH/MM3 (1.0-4.8); MEAN CELL VOLUME 93.4 FL (80.0-100.0); MEAN CORPUSCULAR HEMOGLOBIN 30.9 PG (27.0-34.0); MEAN CORPUSCULAR HGB CONC 33.1 % (32.0-36.0); MONO % 8.3 % (0.0-8.0); PLATELET COUNT 313 TH/MM3 (150-450); RED BLOOD COUNT 2.96 MIL/MM3 (4.50-5.90); RED CELL DISTRIBUTION WIDTH 15.4 % (11.6-17.2); WHITE BLOOD COUNT 15.1 TH/MM3 (4.0-11.0)
[2016-11-09] MEDS: INSULIN NovoLIN REGULAR SUPPLEMENTAL SCALE SQ SCH ×4 (06:00→17:57)
[2016-11-09] MEDS: FREE WATER G-TUBE SCH ×5 (06:00→23:22)
[2016-11-09 06:05] LABS: HEMO FLAGS AUTO DIFF
[2016-11-09] MEDS: METOCLOPRAMIDE HCL 10 MG/2 ML VIAL IV PUSH SCH ×3 (06:07→20:46)
[2016-11-09] MEDS: HEPARIN SODIUM - SQ 10,000 UNITS/ML VIAL SQ SCH ×2 (06:07→16:08)
[2016-11-09 06:26] LABS: BICARBONATE 26.3 MEQ/L (21.0-32.0); CALCIUM-PROTEIN CORRECTED 8.3 MG/DL (8.5-10.1); MAGNESIUM 2.2 MG/DL (1.5-2.5); POTASSIUM 3.3 MEQ/L (3.5-5.1); TOTAL BILIRUBIN ADULT 0.3 MG/DL (0.2-1.0)
--- NOTE | 2016-11-09 06:41 | RADRPT ---
EXAM DATE/TIME: 11/09/2016 05:19 [facility] COMPARISON: CHEST SINGLE AP, November 08, 2016, 5:55. INDICATIONS : Respiratory failure. MEDICAL HISTORY : None. SURGICAL HISTORY : None. ENCOUNTER: Subsequent ACUITY: 4 - 6 days PAIN SCORE: Non-responsive. LOCATION: Bilateral chest FINDINGS: Endotracheal tube tip in satisfactory position. NG enters stomach. Left central line in superior vena cava. Bilateral airspace consolidation again noted. Slight improvement in right upper lobe since Fe ruary 28. CONCLUSION: 1. Slight improvement in right upper lobe consolidation. Basilar airspace disease and pleural effusio ns are similar. Support apparatus unchanged. Kendall Caruso MD on November 09, 2016 at 6:38 Board Certified Radiologist. This report was verified electronically.
[2016-11-09 07:10] LABS: CKMB 4.4 NG/ML (0.5-3.6)
[2016-11-09] MEDS: CHLORHEXIDINE 0.12% (ORAL KIT) 15 ML CUP MT SCH ×2 (07:46→21:03)
[2016-11-09] MEDS: SERTRALINE HCL 50 MG TAB PO SCH (07:51)
[2016-11-09] MEDS: PANTOPRAZOLE SODIUM 40 MG VIAL IV SCH (07:52)
[2016-11-09] MEDS: BENEPROTEIN POWDER 1 PACK G-TUBE SCH ×3 (07:53→17:57)
[2016-11-09] MEDS: SODIUM CHLORIDE 0.9% FLUSH 5 ML FLUSH IVF SCH (07:54)
[2016-11-09] MEDS: SODIUM CHLORIDE 0.9% FLUSH 5 ML FLUSH IV FLUSH SCH ×2 (07:54→20:47)
[2016-11-09] MEDS: ARTIFICIAL TEARS OPTH SOLN 15 ML BTL EACH EYE SCH ×3 (08:00→17:56)
[2016-11-09] MEDS: VANCOMYCIN 500 MG VIAL (FOR ORAL USE ONLY) PO SCH ×4 (08:03→21:28)
--- NOTE | 2016-11-09 08:06 | HHI.CCPN ---
Subjective Remarks/Hospital Course 86-year-old male. Full code. Resident of [facility]. Date of admission 11/01/2016. Past medical history includes hypertension , COPD, right subdural hematoma status post lucien hole, Alzheimer dementia, chronic kidney disease stage III, BPH, depression, chronic benzodiazepine use and diabetes. Patient presented to [place] ED with several day history of decline in function including generalized illness clean diarrhea, shortness of breath. Recently the patient was diagnosed coronary artery pneumonia and started on an antibiotic. Today, the patient presents lethargic/no unresponsive. Initially seen on 6 L nasal cannula. Laboratories revealed sodium 174. Creatinine is 4.1. White blood cell count 24,000. Chest x-ray revealed possible pneumonia source. UA is currently pending. Patient was emergently intubated using 20 mg etomidate 100 mg succinylcholine due to altered mental status/airway protection 11/02: Afebrile. Adequate urine output. Currently on sedation vacation on CPAP trial. C. difficile positive noted. 11/03: Tmax 99.9. Currently afebrile. Positive BM. Tolerating tube feeding. Squeezes hand to command on sedation vacation but became more agitated and back in A. fib. EEG revealed swelling but no epileptic activity. MRI brain pending. 11/04: Noted that a wide-complex tachycardia overnight. Currently on amiodarone drip. Noted potassium 2.6, calcium low magnesium level. This all been replaced. Currently afebrile. Positive BM. Opens eyes and will squeeze hands occasionally bilateral x-rays. MRI brain revealed no acute intracranial findings. 11/05: Tmax 101.. Currently 99.3. High tube feed residuals currently at 600. 300 return. Recheck in one hour. Positive BM. Opens eyes to command and intermittently follows commands by squeezing hands. Currently on a fentanyl drip wean off. Subjective 11/06: Maximum 100.4. Currently afebrile. Resting comfortably in bed off fentanyl drip. Noted A. fib with RVR overnight on amiodarone drip. This will be discontinued. Placed on low-dose beta dwain in the interim. Positive BM. Not tolerating tube feeding. KUB pending. 11/07: Afebrile. The patient was extubated yesterday and reintubated overnight .The patient tolerating tube feeds for the last 24 hours, however noted elevated alkaline phosphatase. 11/08: Patient remains on CPAP, tolerated 9 hours last evening. Plan for continue CPAP trials throughout the night tonight. All sedation has been discontinued. Home medications Xanax 0.25 when necessary for anxiety. WBC count trending down. 11/09: Afebrile. The patient tolerated CPAP for approximately 20 hours last night. All continuous IV sedation discontinued. Plan today for SBT trial and possible extubation. The patient's alcohol alkaline phosphatase is noted to be trending upward, will obtain gallbladder ultrasound. Objective Vital Signs Date Time Temp Pulse Resp B/P Pulse Ox O2 Delivery O2 Flow Rate FiO2 11/09/16 06:00 102 11/09/16 05:00 92 55 11/09/16 04:15 98.1 21 153/75 Intake and Output 11/08/16 11/08/16 11/09/16 08:00 16:00 00:00 Intake Total 1398 ml 1553 ml 1214 ml Output Total 450 ml 475 ml 650 ml Balance 948 ml 1078 ml 564 ml Result Diagram: 11/09/16 0515 11/09/16 0515 Other Results Microbiology Date/Time Procedure Status Source Growth 11/06/16 17:15 Gram Stain - Final Complete Bronchial Washings Right Lower Lobe 11/06/16 17:15 Bronchial Culture - Final Complete Bronchial Washings Right Lower Lobe RARE GROWTH NORMAL RESPIRATORY RAMIRO Imaging Last Impressions Chest X-Ray 11/05/16 0000 Signed Impressions: Service Date/Time: Saturday, November 05, 2016 09:21 - CONCLUSION: Increase in left lower lung atelectasis versus consolidation and increase in small left pleural effusion. Sarthak Clark MD Brain MRI 11/03/16 0000 Signed Impressions: Service Date/Time: October 18:28 - CONCLUSION: Stable chronic changes as described above. No acute intracranial process. Antolin Pulido MD Head CT 11/01/16 1139 Signed Impressions: Service Date/Time: Tuesday, November 01, 2016 15:09 - CONCLUSION: 1. Cerebral atrophy and chronic ischemic small vessel vasculopathy. 2. Remote bilateral lacunar infarcts. Chao Hensley MD Renal Ultrasound 11/01/16 0000 Signed Impressions: Service Date/Time: Tuesday, November 01, 2016 16:47 - CONCLUSION: 1. Kidneys are slightly echogenic which can be seen with medical renal disease. 2. Urinary bladder decompressed by Masters catheter. Chao Hensley MD Abdomen/Pelvis CT 11/01/16 0000 Signed Impressions: Service Date/Time: Tuesday, November 01, 2016 15:12 - CONCLUSION: 1. No acute finding is identified within the abdomen or pelvis. There is a segment of mildly dilated mid jejunum in the left abdomen but otherwise there are no findings present to suggest bowel obstruction. 2. Severe atherosclerotic disease. 3. Airspace consolidation in both lower lobes, left greater than right. Arvind Kyle MD Objective Remarks GENERAL: 86-year-old male, sleeping, on CPAP SKIN: Warm and dry.abrasions on knees bilaterally and sacral decubitus ulcer/ regimen stage I, noticed cellulitic weeping from bilateral upper edematous extremities HEAD: Atraumatic. Normocephalic. EYES: Left pupil is 2 mm and irregular. Right pupil is pinpoint in reactive to light. No scleral icterus. No injection or drainage. ENT: No nasal bleeding or discharge. Mucous membranes pink and moist. NECK: Trachea midline. No JVD. CARDIOVASCULAR: Regular rate and rhythm. S1, S2. No S4. Without murmur RESPIRATORY: Noted expiratory wheeze. Breath sounds equal bilaterally. GASTROINTESTINAL: Abdomen soft, non-tender, nondistended. Hepatic and splenic margins not palpable. MUSCULOSKELETAL: Extremities without noted in peripheral edema. No obvious deformities. NEUROLOGICAL: Intubated.RASS -3. Currently not following commands lethargic. Urinary Catheter: Yes Vascular Central Line Catheter: Yes Date of Insertion: Nov 03, 2016 Line: Central Venous Catheter Side: Left Location: Internal, Jugular A/P Assessment and Plan Neuro/Psych: Acute toxic metabolic encephalopathy Alzheimer's dementia Depression History of right subdural hematoma status post bur hole Chronic benzodiazepine use Chronic narcotic use History of insomnia Goal of RASS -2 while on sedation. IV continuous sedation discontinued Xanax 0.25 every 12 hours when necessary for anxiety. Home medication is Xanax every [address] head 11/02 revealed bilateral lacunar basal ganglia infarct/old with ventriculomegaly 11/03 - MRI brain revealed no acute intracranial findings EEG shows no signs of seizure activity Continue sertraline 25 mg by mouth daily for depression Holding melatonin 3 mg at night for insomnia CV: History of right CVA Hypertension History of atrial fibrillation currently normal sinus rhythm Lactic acidosis Elevated troponin likely demand ischemia Initially EKG reveals sinus tachycardia with diffuse ST T changes throughout multiple leads likely related to dehydration/demand ischemia Cycle troponins. Peaked at 1.16. Currently 0.83 and trending downward Echo revealed EF 55-60%. Will require nuclear stress test prior to discharge Holding home medications lisinopril 10 mg daily in light of hypotension/acute kidney injury Discontinued amiodarone drip or 11/06. Potassium phosphate repletion today potassium 3.3, phosphorus 2.0 11/09-EKG-sinus rhythm Resp: Acute hypoxemic respiratory failure ACV 14/500/5/40 - CPAP 8/5 and 50% Ventilator bundle Bronchodilator therapy every 6 hours and as needed, and every 2 hours when necessary Spontaneous breathing trials today, obtain parameters 11/09 Chest [id number] improvement Continue CPAP trials as long as tolerated by patient GI: Diarrhea/C. difficile positive Currently on Nepro goal 50 cc an hour. Minimal residuals. On hold currently for possible extubation Add prokinetic agent Reglan 5mg every 8hrs Protonix for GI prophylaxis. Protonix 40 mg daily at home CT abdomen/pelvis revealed no obstruction or possible some mild dilatation the mid jejunum. Atherosclerotic vascular disease KUB 11/07 nonspecific Alkaline phosphatase trending upward 154->257 today, will obtain gallbladder ultrasound : History of BPH status post TURP Maintain Masters Strict I's and O's Endo: Diabetes mellitus type 2 Hyperglycemia Sliding-scale insulin with Accu-Cheks every 6 hours to maintain euglycemia/low protocol Adjusted sliding-scale insulin secondary to hypoglycemic episode Renal: Acute on chronic kidney injury Rhabdomyolysis Previously on09/14 NS at 100cc/hr, chloride, sodium normalized. Will change to .45 NS @75cc/hr Avoid nephrotoxic drugs Renal ultrasound no hydronephrosis. Possibly early medical renal disease. Negative urine eosinophils CPKs continue to trend downward. Currently 429 from [phone] Heme: Leukocytosis Normocytic anemia Daily CBC/CMP. Monitor trends ID: Likely healthcare associated pneumonia -Klebsiella and staph aureus C. difficile positive Received vancomycin ED. Aztreonam and Flagyl. Day #6 discontinued 11/05 IV Flagyl/by mouth vancomycin for C. difficile day #6 Start on Rocephin 2 g IV 24 day #[address] Pepe 11/01 - Blood cultures 2 no growth, urine no growth, sputum revealed Klebsiella /staph aureus, influenza negative, urine Legionella and pneumococcal antigens negative ID consult for antibiotic management Dr. Pepe FEN: Hypernatremia-resolved Hyperchloridemia-resolved Hypopotassemia 11/09- .45NS @75cc/hr Continue Free water flushes 250 cc every 6 hours. Electrolytes repleted Repletion with potassium phosphate 30mmol MSK: History of left total knee arthroplasty PT evaluate and treat Sacral decubitus-wound care consulted follow-up recommendations Access -Left IJ CVL day 6 Prophylaxis - GI - Protonix - DVT - SCD/heparin subcutaneous Dispo: Discussed with and METAL TILE LATHER at bedside. Critical Care: Level 3 Physician Griselda Waite MD Nov 09, 2016 08:06
[2016-11-09 08:18] LABS: BANDS 2 % (0-6); NEUTROPHIL # MANUAL DIFF 12.1 TH/MM3 (1.8-7.7); POLYS (SEG NEUTROPHILS) 78 % (16-70); WBC DIFF SAMPLE 100
[2016-11-09] MEDS: RESP: ALBUTEROL 2.5 MG/IPRATROPIUM 0.5 MG NEB (SCH) NEB ×3 (08:20→20:11)
[2016-11-09 08:22] LABS: PLATELET ESTIMATE SMEAR NORMAL (NORMAL); PLATELET MORPHOLOGY NORMAL (NORMAL); SCAN/DIFF FINAL DIFF MANUAL
[2016-11-09] MEDS ORDERED: POTASSIUM PHOSPHATE INJ 15 MMOL in SODIUM CHLORIDE 0.9% INJ 150 ML IV ONE (09:00)
[2016-11-09] MEDS: SODIUM CHLOR 0.45% 1000 ML INJ 1,000 ML IV SCH (12:00)
--- NOTE | 2016-11-09 15:40 | RADRPT ---
EXAM DATE/TIME: 11/09/2016 14:36 [facility] COMPARISON: US KIDNEY/RENAL/BLADDER, November 01, 2016, 16:47. INDICATIONS : Right upper quandrant pain. MEDICAL HISTORY : Myocardial infarction. Chronic obstructive pulmonary disease. Cerebrovascular disease. Cataract. Alz heimer's disease. a.fib. atherosclerotic heart disease. anticoagulant therapy. kidney failure. bph. d iabetes. c. diff. hypertension. right subdural hematoma. arthritis. cerebrovascular accident. respira tory failure. SURGICAL HISTORY : Appendectomy. Carotid artery endarcetomy. Stent placements. TURP. Left total knee replacments. Ri ght lucien hole. ENCOUNTER: Initial ACUITY: 1 day PAIN SCORE: Nonresponsive. LOCATION: Right upper quadrant MEASUREMENTS: LIVER: 15.5 cm length COMMON DUCT: 6 mm RIGHT KIDNEY: 11.6 x 4.7 x 5.1 cm FINDINGS: LIVER: Normal echotexture without focal lesion or ductal dilatation. COMMON DUCT: No intraluminal mass or stone visualized. GALLBLADDER: Contains no stones, demonstrates no wall thickening or pericholecystic fluid. PANCREAS: The visualized portions are within normal limits. RIGHT KIDNEY: No evidence of hydronephrosis, stone, or mass. Note is made of a punctate amount of free fluid within Haro's pouch. CONCLUSION: 1. Negative examination. Joshua Irby MD on November 09, 2016 at 15:37 Board Certified Radiologist. This report was verified electronically.
--- NOTE | 2016-11-09 17:27 | HHI.IDPN ---
Subjective Subjective Remarks cont to have liquid stool not much secretions off sedation, but not waking up on CPAP Antibiotics CFTX vanco PO flagl IV Allergies: Coded Allergies: Ativan (Unverified Allergy, Severe, 11/01/16) Bactrim (Verified Allergy, Severe, hives, 11/01/16) Levaquin (Verified Allergy, Severe, 11/01/16) Morphine (Unverified Allergy, Severe, 11/01/16) Penicillin (Unverified Allergy, Severe, 11/01/16) Tuna (Unverified Allergy, Severe, 11/01/16) Hydrocortisone (Verified Allergy, Unknown, UNKNOWN, 11/01/16) Saccharin (Verified Allergy, Unknown, UNKNOWN , 11/01/16) Objective . Vital Signs Date Time Temp Pulse Resp B/P Pulse Ox O2 Delivery O2 Flow Rate FiO2 11/09/16 15:08 97 55 11/09/16 12:22 99 55 11/09/16 08:25 99 55 11/09/16 08:00 99.1 93 16 135/93 96 11/09/16 08:00 50 11/09/16 06:00 102 11/09/16 05:00 92 55 11/09/16 04:30 50 11/09/16 04:16 45 11/09/16 04:16 90 45 11/09/16 04:15 98.1 117 21 153/75 91 11/09/16 04:00 106 11/09/16 02:00 71 11/09/16 01:05 97 45 11/09/16 00:00 80 11/09/16 00:00 97.9 80 19 143/70 93 11/09/16 00:00 50 11/08/16 22:34 100 45 11/08/16 22:00 86 11/08/16 20:02 94 50 11/08/16 20:00 76 11/08/16 20:00 98.1 76 21 147/70 88 11/08/16 20:00 50 11/08/16 19:00 89 11/08/16 11/08/16 11/09/16 15:00 23:00 07:00 Intake Total 1553 ml 1214 ml 1211 ml Output Total 475 ml 650 ml 850 ml Balance 1078 ml 564 ml 361 ml IV Total 953 ml 612 ml 689 ml Tube Feeding 400 ml 402 ml 322 ml Other 200 ml 200 ml 200 ml Output Urine Total 450 ml 450 ml 650 ml Stool Total 25 ml 200 ml 200 ml . Laboratory Tests Test 11/08/16 11/09/16 05:31 05:15 White Blood Count 13.5 TH/MM3 15.1 TH/MM3 Red Blood Count 3.11 MIL/MM3 2.96 MIL/MM3 Hemoglobin 9.8 GM/DL 9.1 GM/DL Hematocrit 30.0 % 27.6 % Mean Corpuscular Volume 96.4 FL 93.4 FL Mean Corpuscular Hemoglobin 31.6 PG 30.9 PG Mean Corpuscular Hemoglobin 32.7 % 33.1 % Concent Red Cell Distribution Width 15.6 % 15.4 % Platelet Count 242 TH/MM3 313 TH/MM3 Mean Platelet Volume 10.7 FL 10.0 FL Neutrophils (%) (Auto) 86.0 % Lymphocytes (%) (Auto) 5.4 % Monocytes (%) (Auto) 8.3 % Eosinophils (%) (Auto) 0.0 % Basophils (%) (Auto) 0.3 % Neutrophils # (Auto) 13.0 TH/MM3 Lymphocytes # (Auto) 0.8 TH/MM3 Monocytes # (Auto) 1.3 TH/MM3 Eosinophils # (Auto) 0.0 TH/MM3 Basophils # (Auto) 0.0 TH/MM3 CBC Comment AUTO DIFF Differential Total Cells 100 Counted Neutrophils % (Manual) 78 % Band Neutrophils % 2 % Lymphocytes % 8 % Monocytes % 12 % Neutrophils # (Manual) 12.1 TH/MM3 Differential Comment FINAL DIFF MANUAL Platelet Estimate NORMAL Platelet Morphology Comment NORMAL Red Cell Morphology Comment NORMAL Laboratory Tests Test 11/08/16 11/09/16 05:31 05:15 Sodium Level 143 MEQ/L 141 MEQ/L Potassium Level 3.5 MEQ/L 3.3 MEQ/L Chloride Level 106 MEQ/L 104 MEQ/L Carbon Dioxide Level 26.6 MEQ/L 26.3 MEQ/L Anion Gap 10 MEQ/L 11 MEQ/L Blood Urea Nitrogen 51 MG/DL 57 MG/DL Creatinine 2.08 MG/DL 2.04 MG/DL Estimat Glomerular Filtration 30 ML/MIN 31 ML/MIN Rate Random Glucose 172 MG/DL 172 MG/DL Calcium Level 7.1 MG/DL 7.2 MG/DL Protein Corrected Calcium 7.9 MG/DL 8.3 MG/DL Phosphorus Level 3.5 MG/DL 2.0 MG/DL Magnesium Level 2.4 MG/DL 2.2 MG/DL Total Creatine Kinase 617 U/L 429 U/L Creatine Kinase MB 6.8 NG/ML 4.4 NG/ML Creatine Kinase MB % 1.1 % 1.0 % Total Protein 5.6 GM/DL 5.0 GM/DL Total Bilirubin 0.3 MG/DL Aspartate Amino Transf 55 U/L (AST/SGOT) Alanine Aminotransferase 45 U/L (ALT/SGPT) Alkaline Phosphatase 257 U/L Albumin 1.9 GM/DL Imaging Last Impressions Chest X-Ray 11/09/16 0600 Signed Impressions: Service Date/Time: Wednesday, November 09, 2016 05:19 - CONCLUSION: 1. Slight improvement in right upper lobe consolidation. Basilar airspace disease and pleural effusions are similar. Support apparatus unchanged. Kendall Caruso MD Gall Bladder Ultrasound 11/09/16 0000 Signed Impressions: Service Date/Time: Wednesday, November 09, 2016 14:36 - CONCLUSION: 1. Negative examination. Joshua Irby MD Head CT 11/06/16 0000 Signed Impressions: Service Date/Time: Sunday, November 06, 2016 22:00 - CONCLUSION: 1. Cerebral atrophy and chronic ischemic small vessel vasculopathy. 2. Remote bilateral basal ganglia lacunar infarcts. Chao Hensley MD Abdomen X-Ray 11/06/16 0000 Signed Impressions: Service Date/Time: Sunday, November 06, 2016 07:43 - CONCLUSION: Benign-appearing abdomen. Arvind Márquez MD Brain MRI 11/03/16 0000 Signed Impressions: Service Date/Time: October 18:28 - CONCLUSION: Stable chronic changes as described above. No acute intracranial process. Antolin Pulido MD Renal Ultrasound 11/01/16 0000 Signed Impressions: Service Date/Time: Tuesday, November 01, 2016 16:47 - CONCLUSION: 1. Kidneys are slightly echogenic which can be seen with medical renal disease. 2. Urinary bladder decompressed by Masters catheter. Chao Hensley MD Abdomen/Pelvis CT 11/01/16 0000 Signed Impressions: Service Date/Time: Tuesday, November 01, 2016 15:12 - CONCLUSION: 1. No acute finding is identified within the abdomen or pelvis. There is a segment of mildly dilated mid jejunum in the left abdomen but otherwise there are no findings present to suggest bowel obstruction. 2. Severe atherosclerotic disease. 3. Airspace consolidation in both lower lobes, left greater than right. Arvind Kyle MD Physical Exam CONSTITUTIONAL/GENERAL: This is an adequately nourished patient, in no apparent distress. TUBES/LINES/DRAINS: SKIN: No jaundice, rashes, or lesions. Skin temperature appropriate. Not diaphoretic. HEAD: Atraumatic. Normocephalic. EYES: Pupils equal and round and reactive. Extraocular motions intact. No scleral icterus. No injection or drainage. Fundi not examined. ENT: Orally intubated NECK: Trachea midline. Supple, nontender. No palpable thyroid enlargement or nodularity. CARDIOVASCULAR: Regular rate and rhythm without murmurs, gallops, or rubs. No JVD. Peripheral pulses not palpale on bl feet RESPIRATORY/CHEST: clear to auscultation GASTROINTESTINAL: Abdomen soft, non-tender ( no reaction to palpation), moderately distended. No hepato-splenomegaly, or palpable masses. No guarding. Bowel sounds diminished Incontinent of brown liquid stool in fecal collection system GENITOURINARY: Without palpable bladder distension. Masters catheter in place. MUSCULOSKELETAL: Extremities without clubbing, + 1-2 edema. No joint tenderness or effusion noted. No calf tenderness. No mottling or clubbing. no cyanosis, LYMPHATICS: No palpable cervical or supraclavicular adenopathy. NEUROLOGICAL: off sedation; obtunded, not tracking or following commands he slightly opens eyes to stimulation PSYCHIATRIC: unable to assess Assessment & Plan Remarks PNA, Klebsiella, MSSA - most recent CHANTELLE clx neg so far - WBC 14 mln in BAL -CXR with some clearing Acute VDRF, - required re-intubation Hypervirlent strain of C.diff - cont to have high volume liquid diarrhea Multiple abx allergies, including PCN, Levaquine, bactrim, sustantially limiting aailbale abx choice, though it appears from EMR that pt had CFTX and cefazoline uneventfully in 2014 MS change, not waking up despite off sedation Persistent leukocytosis - cont po vanco, IV flagyl for C.diff -cont CFTX for PNA - fu BAL clx untill final, will adjust abx por final BAL report - rechk C.diff in stool fu WBC dw RN dw @ b/s Aletha Pepe MD Nov 09, 2016 17:27
[2016-11-09] MEDS: cefTRIAXone INJ 2,000 MG in SODIUM CHLORIDE 0.9% INJ 100 ML IV SCH (20:57)
[2016-11-09] MEDS: ACETAMINOPHEN 325 MG TAB PO PRN (21:28)
[2016-11-09] MEDS ORDERED: ACETAMINOPHEN 325MG/HYDROcodone 7.5MG/15ML UDC PO PRN (23:15)
[2016-11-10] VITALS (17 sets, daily range): BP systolic 97–162; BP diastolic 52–80; PULSE 74–129; RESP 20–24; TEMP 98–99.4; O2SAT 93–100
[2016-11-10] MEDS: metroNIDAZOLE 500 MG INJ 100 ML IV SCH ×4 (01:00→22:52)
[2016-11-10] MEDS: CHLORHEXIDINE GLUCONATE 2 % 1 PACK (2 CLOTHS) TOP SCH ×2 (02:25→02:39)
[2016-11-10] MEDS: SODIUM CHLOR 0.45% 1000 ML INJ 1,000 ML IV SCH ×2 (02:50→22:54)
[2016-11-10] MEDS: FREE WATER G-TUBE SCH ×4 (03:04→22:13)
[2016-11-10] MEDS: HEPARIN SODIUM - SQ 10,000 UNITS/ML VIAL SQ SCH ×2 (03:42→16:00)
[2016-11-10 04:29] LABS: AUTOMATED NEUTROPHIL # 12.7 TH/MM3 (1.8-7.7); BASOPHIL # 0.1 TH/MM3 (0-0.2); BASOPHIL % 0.4 % (0.0-2.0); EOSINOPHIL % 0.2 % (0.0-4.0); HEMATOCRIT 29.1 % (39.0-51.0); LYMPH % 10.3 % (9.0-44.0); LYMPHOCYTE # 1.6 TH/MM3 (1.0-4.8); MEAN CELL VOLUME 94.3 FL (80.0-100.0); MEAN CORPUSCULAR HEMOGLOBIN 31.6 PG (27.0-34.0); MEAN CORPUSCULAR HGB CONC 33.5 % (32.0-36.0); MONO % 6.7 % (0.0-8.0); NEUT % 82.4 % (16.0-70.0); PLATELET COUNT 325 TH/MM3 (150-450); RED BLOOD COUNT 3.08 MIL/MM3 (4.50-5.90); RED CELL DISTRIBUTION WIDTH 15.1 % (11.6-17.2); WHITE BLOOD COUNT 15.4 TH/MM3 (4.0-11.0)
[2016-11-10 04:33] LABS: HEMO FLAGS AUTO DIFF
[2016-11-10 04:51] LABS: BICARBONATE 27.6 MEQ/L (21.0-32.0); MAGNESIUM 2.1 MG/DL (1.5-2.5); POTASSIUM 3.4 MEQ/L (3.5-5.1)
[2016-11-10 05:05] LABS: CALCIUM-PROTEIN CORRECTED 8.3 MG/DL (8.5-10.1)
[2016-11-10] MEDS: METOCLOPRAMIDE HCL 10 MG/2 ML VIAL IV PUSH SCH ×3 (05:35→22:21)
[2016-11-10] MEDS: INSULIN NovoLIN REGULAR SUPPLEMENTAL SCALE SQ SCH ×5 (05:55→22:57)
[2016-11-10] MEDS: RESP: ALBUTEROL 2.5 MG/IPRATROPIUM 0.5 MG NEB (SCH) NEB ×3 (08:32→20:10)
[2016-11-10] MEDS: BENEPROTEIN POWDER 1 PACK G-TUBE SCH ×3 (09:00→18:00)
[2016-11-10] MEDS: SERTRALINE HCL 50 MG TAB PO SCH (09:00)
[2016-11-10] MEDS: CHLORHEXIDINE 0.12% (ORAL KIT) 15 ML CUP MT SCH ×2 (09:57→19:40)
[2016-11-10] MEDS: ARTIFICIAL TEARS OPTH SOLN 15 ML BTL EACH EYE SCH ×3 (09:57→18:28)
[2016-11-10] MEDS: SODIUM CHLORIDE 0.9% FLUSH 5 ML FLUSH IV FLUSH SCH ×2 (09:59→19:47)
[2016-11-10] MEDS: SODIUM CHLORIDE 0.9% FLUSH 5 ML FLUSH IVF SCH (09:59)
[2016-11-10] MEDS: VANCOMYCIN 500 MG VIAL (FOR ORAL USE ONLY) PO SCH ×4 (10:01→19:43)
[2016-11-10] MEDS: PANTOPRAZOLE SODIUM 40 MG VIAL IV SCH (10:01)
[2016-11-10 10:03] LABS: SCAN/DIFF AUTO DIFF CONFIRMED
--- NOTE | 2016-11-10 10:36 | HHI.CCPN ---
Subjective Remarks/Hospital Course 86-year-old male. Full code. Resident of [facility]. Date of admission 11/01/2016. Past medical history includes hypertension , COPD, right subdural hematoma status post lucien hole, Alzheimer dementia, chronic kidney disease stage III, BPH, depression, chronic benzodiazepine use and diabetes. Patient presented to [facility] with several day history of decline in function including generalized illness clean diarrhea, shortness of breath. Recently the patient was diagnosed coronary artery pneumonia and started on an antibiotic. Today, the patient presents lethargic/no unresponsive. Initially seen on 6 L nasal cannula. Laboratories revealed sodium 174. Creatinine is 4.1. White blood cell count 24,000. Chest x-ray revealed possible pneumonia source. UA is currently pending. Patient was emergently intubated using 20 mg etomidate 100 mg succinylcholine due to altered mental status/airway protection 11/02: Afebrile. Adequate urine output. Currently on sedation vacation on CPAP trial. C. difficile positive noted. 11/03: Tmax 99.9. Currently afebrile. Positive BM. Tolerating tube feeding. Squeezes hand to command on sedation vacation but became more agitated and back in A. fib. EEG revealed swelling but no epileptic activity. MRI brain pending. 11/04: Noted that a wide-complex tachycardia overnight. Currently on amiodarone drip. Noted potassium 2.6, calcium low magnesium level. This all been replaced. Currently afebrile. Positive BM. Opens eyes and will squeeze hands occasionally bilateral x-rays. MRI brain revealed no acute intracranial findings. 11/05: Tmax 101.. Currently 99.3. High tube feed residuals currently at 600. 300 return. Recheck in one hour. Positive BM. Opens eyes to command and intermittently follows commands by squeezing hands. Currently on a fentanyl drip wean off. Subjective 11/06: Maximum 100.4. Currently afebrile. Resting comfortably in bed off fentanyl drip. Noted A. fib with RVR overnight on amiodarone drip. This will be discontinued. Placed on low-dose beta dwain in the interim. Positive BM. Not tolerating tube feeding. KUB pending. 11/07: Afebrile. The patient was extubated yesterday and reintubated overnight .The patient tolerating tube feeds for the last 24 hours, however noted elevated alkaline phosphatase. 11/08: Patient remains on CPAP, tolerated 9 hours last evening. Plan for continue CPAP trials throughout the night tonight. All sedation has been discontinued. Home medications Xanax 0.25 when necessary for anxiety. WBC count trending down. 11/09: Afebrile. The patient tolerated CPAP for approximately 20 hours last night. All continuous IV sedation discontinued. Plan today for SBT trial and possible extubation. The patient's alcohol alkaline phosphatase is noted to be trending upward, will obtain gallbladder ultrasound. 11/10: Tmax 100.1. The patient continues to be lethargic main on CPAP since 6 AM this morning. SBT trial parameters, NIF -17,TV 500, RSBI 54, the patient does not follow commands secondary to lethargy. All sedatives have been discontinued including Xanax which is on hold. We'll continue to monitor, attempt a trial of extubation today. Gallbladder ultrasound obtained within increasing alkaline phosphatase, results negative. Objective Vital Signs Date Time Temp Pulse Resp B/P Pulse Ox O2 Delivery O2 Flow Rate FiO2 11/10/16 10:05 93 40 11/10/16 06:00 83 11/10/16 04:00 98.7 24 162/80 Intake and Output 11/09/16 11/09/16 11/10/16 08:00 16:00 00:00 Intake Total 1211 ml 2671 ml Output Total 850 ml 2100 ml Balance 361 ml 571 ml Result Diagram: 11/10/16 0355 11/10/16 0355 Imaging Last Impressions Chest X-Ray 11/05/16 0000 Signed Impressions: Service Date/Time: Saturday, November 05, 2016 09:21 - CONCLUSION: Increase in left lower lung atelectasis versus consolidation and increase in small left pleural effusion. Sarthak Clark MD Brain MRI 11/03/16 0000 Signed Impressions: Service Date/Time: October 18:28 - CONCLUSION: Stable chronic changes as described above. No acute intracranial process. Antolin Pulido MD Head CT 11/01/16 1139 Signed Impressions: Service Date/Time: Tuesday, November 01, 2016 15:09 - CONCLUSION: 1. Cerebral atrophy and chronic ischemic small vessel vasculopathy. 2. Remote bilateral lacunar infarcts. Chao Hensley MD Renal Ultrasound 11/01/16 0000 Signed Impressions: Service Date/Time: Tuesday, November 01, 2016 16:47 - CONCLUSION: 1. Kidneys are slightly echogenic which can be seen with medical renal disease. 2. Urinary bladder decompressed by Masters catheter. Chao Hensley MD Abdomen/Pelvis CT 11/01/16 0000 Signed Impressions: Service Date/Time: Tuesday, November 01, 2016 15:12 - CONCLUSION: 1. No acute finding is identified within the abdomen or pelvis. There is a segment of mildly dilated mid jejunum in the left abdomen but otherwise there are no findings present to suggest bowel obstruction. 2. Severe atherosclerotic disease. 3. Airspace consolidation in both lower lobes, left greater than right. Arvind Kyle MD Objective Remarks GENERAL: 86-year-old male, sleeping, on CPAP SKIN: Warm and dry.abrasions on knees bilaterally and sacral decubitus ulcer/ regimen stage I, noticed cellulitic weeping from bilateral upper edematous extremities HEAD: Atraumatic. Normocephalic. EYES: Left pupil is 2 mm and irregular. Right pupil is pinpoint in reactive to light. No scleral icterus. No injection or drainage. ENT: No nasal bleeding or discharge. Mucous membranes pink and moist. NECK: Trachea midline. No JVD. CARDIOVASCULAR: Regular rate and rhythm. S1, S2. No S4. Without murmur RESPIRATORY: Noted expiratory wheeze. Breath sounds equal bilaterally. GASTROINTESTINAL: Abdomen soft, non-tender, nondistended. Hepatic and splenic margins not palpable. MUSCULOSKELETAL: Extremities without noted in peripheral edema. No obvious deformities. NEUROLOGICAL: Intubated.RASS -3. Currently not following commands lethargic. Urinary Catheter: Yes Masters insert reason: Measure Accurate Output Date of Insertion: Nov 03, 2016 Line: Central Venous Catheter Side: Left Location: Internal, Jugular A/P Assessment and Plan Neuro/Psych: Acute toxic metabolic encephalopathy Alzheimer's dementia Depression History of right subdural hematoma status post bur hole Chronic benzodiazepine use Chronic narcotic use History of insomnia Lethargy Goal of RASS -2 while on sedation. IV continuous sedation discontinued Xanax 0.25 every 12 hours when necessary for anxiety( on hold). Home medication is Xanax every [address] head 11/02 revealed bilateral lacunar basal ganglia infarct/old with ventriculomegaly 11/03 - MRI brain revealed no acute intracranial findings EEG shows no signs of seizure activity Continue sertraline 25 mg by mouth daily for depression Holding melatonin 3 mg at night for insomnia Patient continues to be lethargic despite being off all sedatives greater than 48 hours, will continue to monitor, not following commands CV: History of right CVA Hypertension History of atrial fibrillation currently normal sinus rhythm Lactic acidosis Elevated troponin likely demand ischemia Initially EKG reveals sinus tachycardia with diffuse ST T changes throughout multiple leads likely related to dehydration/demand ischemia Cycle troponins. Peaked at 1.16. Currently 0.83 and trending downward Echo revealed EF 55-60%. Will require nuclear stress test prior to discharge Holding home medications lisinopril 10 mg daily in light of hypotension/acute kidney injury Discontinued amiodarone drip or 11/06. Potassium phosphate repletion 30 mmols potassium 3.4, phosphorus 2.0 11/09-EKG-sinus rhythm Resp: Acute hypoxemic respiratory failure ACV 14/500/5/40 - CPAP 8/5 and 50% Ventilator bundle Bronchodilator therapy every 6 hours and as needed, and every 2 hours when necessary Spontaneous breathing trials today, RSBI 54, NIF -17,TV 500,RR24 on 5/5 FiO2 50% 11/09 Chest [id number] improvement Continue CPAP trials as long as tolerated by patient Plan for trial of extubation today GI: Diarrhea/C. difficile positive Currently on Nepro goal 50 cc an hour. Minimal residuals. On hold , will trial of extubation today Add prokinetic agent Reglan 5mg every 8hrs Protonix for GI prophylaxis. Protonix [address] home CT abdomen/pelvis revealed no obstruction or possible some mild dilatation the mid jejunum. Atherosclerotic vascular disease KUB 11/07 nonspecific Gallbladder ultrasound-negative, : History of BPH status post TURP Maintain Masters Strict I's and O's Endo: Diabetes mellitus type 2 Hyperglycemia Sliding-scale insulin with Accu-Cheks every 6 hours to maintain euglycemia/low protocol Adjusted sliding-scale insulin secondary to hypoglycemic episode Renal: Acute on chronic kidney injury Rhabdomyolysis On 0.45 NS @75cc/hr Avoid nephrotoxic drugs Renal ultrasound no hydronephrosis. Possibly early medical renal disease. Negative urine eosinophils CPKs continue to trend downward. Heme: Leukocytosis Normocytic anemia Daily CBC/CMP. Monitor trends ID: Likely healthcare associated pneumonia -Klebsiella and staph aureus C. difficile positive Received vancomycin ED. Aztreonam and Flagyl. Day #6 discontinued 11/05 IV Flagyl/by mouth vancomycin for C. difficile day #6 Start on Rocephin 2 g IV 24 day #[address] Pepe 11/01 - Blood cultures 2 no growth, urine no growth, sputum revealed Klebsiella /staph aureus, influenza negative, urine Legionella and pneumococcal antigens negative ID consult for antibiotic management Dr. Pepe 10/15 -BAL- NGTD FEN: Hypernatremia-resolved Hyperchloridemia-resolved Hypopotassemia Hypophosphatemia 11/09- .45NS @75cc/hr Continue Free water flushes 250 cc every 6 hours. Electrolytes repleted Repletion with potassium phosphate 30mmol MSK: History of left total knee arthroplasty PT evaluate and treat Sacral decubitus-wound care consulted follow-up recommendations Access -Left IJ CVL day 7 Prophylaxis - GI - Protonix - DVT - SCD/heparin subcutaneous Dispo: Discussed with and [employer] at bedside. Critical Care: Level 3 Physician Griselda Waite MD Nov 10, 2016 10:36
[2016-11-10] MEDS ORDERED: POTASSIUM PHOSPHATE INJ 30 MMOL in SODIUM CHLOR 0.9% 250 ML INJ 250 ML IV ONE (13:00)
[2016-11-10] MEDS: cefTRIAXone INJ 2,000 MG in SODIUM CHLORIDE 0.9% INJ 100 ML IV SCH (19:40)
[2016-11-11] VITALS (16 sets, daily range): BP systolic 102–154; BP diastolic 53–82; PULSE 86–140; RESP 18–25; TEMP 98–99.6; O2SAT 94–100
[2016-11-11] MEDS: CHLORHEXIDINE GLUCONATE 2 % 1 PACK (2 CLOTHS) TOP SCH ×2 (01:22→01:23)
[2016-11-11] MEDS: FREE WATER G-TUBE SCH ×3 (01:23→18:00)
[2016-11-11] MEDS: HEPARIN SODIUM - SQ 10,000 UNITS/ML VIAL SQ SCH ×2 (03:33→16:10)
[2016-11-11 04:19] LABS: HEMATOCRIT 29.2 % (39.0-51.0); MEAN CELL VOLUME 94.3 FL (80.0-100.0); MEAN CORPUSCULAR HEMOGLOBIN 31.4 PG (27.0-34.0); MEAN CORPUSCULAR HGB CONC 33.3 % (32.0-36.0); PLATELET COUNT 315 TH/MM3 (150-450); RED CELL DISTRIBUTION WIDTH 15.4 % (11.6-17.2); REVIEW FLAG FINAL; WHITE BLOOD COUNT 16.4 TH/MM3 (4.0-11.0)
[2016-11-11 04:36] LABS: MAGNESIUM 1.9 MG/DL (1.5-2.5); POTASSIUM 3.4 MEQ/L (3.5-5.1)
[2016-11-11] MEDS ORDERED: METOPROLOL TARTRATE 5 MG/5 ML VIAL IV PUSH SCH (04:45)
[2016-11-11 04:50] LABS: CALCIUM-PROTEIN CORRECTED 8.2 MG/DL (8.5-10.1)
[2016-11-11] MEDS: INSULIN NovoLIN REGULAR SUPPLEMENTAL SCALE SQ SCH ×3 (05:20→18:00)
[2016-11-11] MEDS: METOCLOPRAMIDE HCL 10 MG/2 ML VIAL IV PUSH SCH ×3 (05:38→20:44)
[2016-11-11] MEDS: CHLORHEXIDINE 0.12% (ORAL KIT) 15 ML CUP MT SCH ×2 (07:57→20:00)
[2016-11-11] MEDS: metroNIDAZOLE 500 MG INJ 100 ML IV SCH ×2 (07:58→16:11)
[2016-11-11] MEDS: ARTIFICIAL TEARS OPTH SOLN 15 ML BTL EACH EYE SCH ×3 (08:01→18:00)
[2016-11-11] MEDS: PANTOPRAZOLE SODIUM 40 MG VIAL IV SCH (08:02)
[2016-11-11] MEDS: VANCOMYCIN 500 MG VIAL (FOR ORAL USE ONLY) PO SCH ×4 (08:02→20:43)
[2016-11-11] MEDS: SODIUM CHLORIDE 0.9% FLUSH 5 ML FLUSH IVF SCH (08:02)
[2016-11-11] MEDS: BENEPROTEIN POWDER 1 PACK G-TUBE SCH ×3 (08:02→18:00)
[2016-11-11] MEDS: SODIUM CHLORIDE 0.9% FLUSH 5 ML FLUSH IV FLUSH SCH ×2 (08:02→20:43)
[2016-11-11] MEDS: SERTRALINE HCL 50 MG TAB PO SCH (08:03)
[2016-11-11] MEDS: RESP: ALBUTEROL 2.5 MG/IPRATROPIUM 0.5 MG NEB (SCH) NEB ×3 (08:30→20:21)
[2016-11-11] MEDS ORDERED: POTASSIUM PHOSPHATE INJ 30 MMOL in SODIUM CHLOR 0.9% 250 ML INJ 250 ML IV ONE (10:45)
[2016-11-11] MEDS: METOPROLOL TARTRATE 5 MG/5 ML VIAL IV PUSH PRN ×2 (13:00→20:44)
--- NOTE | 2016-11-11 13:51 | HHI.CCPN ---
Subjective Remarks/Hospital Course 86-year-old male. Full code. Resident of [facility]. Date of admission 11/01/2016. Past medical history includes hypertension , COPD, right subdural hematoma status post lucien hole, Alzheimer dementia, chronic kidney disease stage III, BPH, depression, chronic benzodiazepine use and diabetes. Patient presented to [facility] ED with several day history of decline in function including generalized illness clean diarrhea, shortness of breath. Recently the patient was diagnosed coronary artery pneumonia and started on an antibiotic. Today, the patient presents lethargic/no unresponsive. Initially seen on 6 L nasal cannula. Laboratories revealed sodium 174. Creatinine is 4.1. White blood cell count 24,000. Chest x-ray revealed possible pneumonia source. UA is currently pending. Patient was emergently intubated using 20 mg etomidate 100 mg succinylcholine due to altered mental status/airway protection 11/02: Afebrile. Adequate urine output. Currently on sedation vacation on CPAP trial. C. difficile positive noted. 11/03: Tmax 99.9. Currently afebrile. Positive BM. Tolerating tube feeding. Squeezes hand to command on sedation vacation but became more agitated and back in A. fib. EEG revealed swelling but no epileptic activity. MRI brain pending. 11/04: Noted that a wide-complex tachycardia overnight. Currently on amiodarone drip. Noted potassium 2.6, calcium low magnesium level. This all been replaced. Currently afebrile. Positive BM. Opens eyes and will squeeze hands occasionally bilateral x-rays. MRI brain revealed no acute intracranial findings. 11/05: Tmax 101.. Currently 99.3. High tube feed residuals currently at 600. 300 return. Recheck in one hour. Positive BM. Opens eyes to command and intermittently follows commands by squeezing hands. Currently on a fentanyl drip wean off. Subjective 11/06: Maximum 100.4. Currently afebrile. Resting comfortably in bed off fentanyl drip. Noted A. fib with RVR overnight on amiodarone drip. This will be discontinued. Placed on low-dose beta dwain in the interim. Positive BM. Not tolerating tube feeding. KUB pending. 11/07: Afebrile. The patient was extubated yesterday and reintubated overnight .The patient tolerating tube feeds for the last 24 hours, however noted elevated alkaline phosphatase. 11/08: Patient remains on CPAP, tolerated 9 hours last evening. Plan for continue CPAP trials throughout the night tonight. All sedation has been discontinued. Home medications Xanax 0.25 when necessary for anxiety. WBC count trending down. 11/09: Afebrile. The patient tolerated CPAP for approximately 20 hours last night. All continuous IV sedation discontinued. Plan today for SBT trial and possible extubation. The patient's alcohol alkaline phosphatase is noted to be trending upward, will obtain gallbladder ultrasound. 11/10: Tmax 100.1. The patient continues to be lethargic main on CPAP since 6 AM this morning. SBT trial parameters, NIF -17,TV 500, RSBI 54, the patient does not follow commands secondary to lethargy. All sedatives have been discontinued including Xanax which is on hold. We'll continue to monitor, attempt a trial of extubation today. Gallbladder ultrasound obtained within increasing alkaline phosphatase, results negative. 11/11 the patient was too lethargic yesterday to perform a trial of extubation. Today the patient is more alert and more responsive still not following commands. SBT trial performed again today though patient was noncompliant.RSBI 42 RR 24 NIF -22 TV 500, positive cuff leak. Performed a trial of extubation this morning. Objective Vital Signs Date Time Temp Pulse Resp B/P Pulse Ox O2 Delivery O2 Flow Rate FiO2 11/11/16 13:07 97 Mask 6 11/11/16 12:00 86 11/11/16 12:00 99.6 24 114/56 11/11/16 12:00 45 Intake and Output 11/10/16 11/10/16 11/11/16 08:00 16:00 00:00 Intake Total 937 ml 2219 ml Output Total 900 ml 2250 ml Balance 37 ml -31 ml Result Diagram: 11/11/16 0340 11/11/16 0340 Imaging Last Impressions Chest X-Ray 11/05/16 0000 Signed Impressions: Service Date/Time: Saturday, November 05, 2016 09:21 - CONCLUSION: Increase in left lower lung atelectasis versus consolidation and increase in small left pleural effusion. Sarthak Clark MD Brain MRI 11/03/16 0000 Signed Impressions: Service Date/Time: October 18:28 - CONCLUSION: Stable chronic changes as described above. No acute intracranial process. Antolin Pulido MD Head CT 11/01/16 1139 Signed Impressions: Service Date/Time: Tuesday, November 01, 2016 15:09 - CONCLUSION: 1. Cerebral atrophy and chronic ischemic small vessel vasculopathy. 2. Remote bilateral lacunar infarcts. Chao Hensley MD Renal Ultrasound 11/01/16 0000 Signed Impressions: Service Date/Time: Tuesday, November 01, 2016 16:47 - CONCLUSION: 1. Kidneys are slightly echogenic which can be seen with medical renal disease. 2. Urinary bladder decompressed by Masters catheter. Chao Hensley MD Abdomen/Pelvis CT 11/01/16 0000 Signed Impressions: Service Date/Time: Tuesday, November 01, 2016 15:12 - CONCLUSION: 1. No acute finding is identified within the abdomen or pelvis. There is a segment of mildly dilated mid jejunum in the left abdomen but otherwise there are no findings present to suggest bowel obstruction. 2. Severe atherosclerotic disease. 3. Airspace consolidation in both lower lobes, left greater than right. Arvind Kyle MD Objective Remarks GENERAL: 86-year-old male, awake and alert on BiPAP, looking towards me but not following my commands SKIN: Warm and dry.abrasions on knees bilaterally and sacral decubitus ulcer/ regimen stage I, noticed cellulitic weeping from bilateral upper edematous extremities HEAD: Atraumatic. Normocephalic. EYES: Left pupil is 2 mm and irregular. Right pupil is pinpoint in reactive to light. No scleral icterus. No injection or drainage. ENT: No nasal bleeding or discharge. Mucous membranes pink and moist. NECK: Trachea midline. No JVD. CARDIOVASCULAR: Regular rate and rhythm. S1, S2. No S4. Without murmur RESPIRATORY: Noted expiratory wheeze. Breath sounds equal bilaterally. GASTROINTESTINAL: Abdomen soft, non-tender, nondistended. Hepatic and splenic margins not palpable. MUSCULOSKELETAL: Extremities without noted in peripheral edema. No obvious deformities. NEUROLOGICAL: Intubated.RASS -3. Currently not following commands Date of Insertion: Nov 03, 2016 Line: Central Venous Catheter Side: Left Location: Internal, Jugular A/P Assessment and Plan Neuro/Psych: Acute toxic metabolic encephalopathy Alzheimer's dementia Depression History of right subdural hematoma status post bur hole Chronic benzodiazepine use Chronic narcotic use History of insomnia Lethargy Goal of RASS 0. Xanax 0.25 every 12 hours when necessary for anxiety( on hold). Home medication is Xanax every [address] head 11/02 revealed bilateral lacunar basal ganglia infarct/old with ventriculomegaly 11/03 - MRI brain revealed no acute intracranial findings EEG shows no signs of seizure activity Continue sertraline 25 mg by mouth daily for depression Holding melatonin 3 mg at night for insomnia Patient awake, spontaneous eye opening, not following commands CV: History of right CVA Hypertension History of atrial fibrillation currently normal sinus rhythm Lactic acidosis Elevated troponin likely demand ischemia Initially EKG reveals sinus tachycardia with diffuse ST T changes throughout multiple leads likely related to dehydration/demand ischemia Cycle troponins. Peaked at 1.16. Currently 0.83 and trending downward Echo revealed EF 55-60%. Will require nuclear stress test prior to discharge Holding home medications lisinopril 10 mg daily in light of hypotension/acute kidney injury Discontinued amiodarone drip or 11/06. Potassium phosphate repletion 11/11 30 mmols potassium 3.4, phosphorus 2.0 11/09-EKG-sinus rhythm Metoprolol PRN Resp: Acute hypoxemic respiratory failure CPAP 8/5 and 50% Ventilator bundle Bronchodilator therapy every 6 hours and as needed, and every 2 hours when necessary Spontaneous breathing trials today, RSBI 42, NIF -22,TV 500,RR 21 on 10/5 FiO2 50% 11/09 Chest [id number] improvement Continue CPAP trials as long as tolerated by patient Trial of extubation performed (11/11) GI: Diarrhea/C. difficile positive On hold , will trial of extubation today. Will place NG tube for continued nutrition Add prokinetic agent Reglan 5mg every 8hrs Protonix for GI prophylaxis. Protonix [address] home CT abdomen/pelvis revealed no obstruction or possible some mild dilatation the mid jejunum. Atherosclerotic vascular disease KUB 11/07 nonspecific Gallbladder ultrasound-negative, : History of BPH status post TURP Maintain Masters Strict I's and O's Endo: Diabetes mellitus type 2 Hyperglycemia Sliding-scale insulin with Accu-Cheks every 6 hours to maintain euglycemia/low protocol Adjusted sliding-scale insulin secondary to hypoglycemic episode Renal: Acute on chronic kidney injury-resolved Rhabdomyolysis-resolved 0.45 NS @75cc/hr discontinued 3/3 Avoid nephrotoxic drugs Renal ultrasound no hydronephrosis. Possibly early medical renal disease. Negative urine eosinophils Creatinine kinase 260 within normal limits Sodium within normal [id number] will continue free water flushes for now Creatinine 1.4 from 1.74 yesterday, continue to monitor Heme: Leukocytosis Normocytic anemia Daily CBC/CMP. Monitor trends ID: Likely healthcare associated pneumonia -Klebsiella and staph aureus C. difficile positive Received vancomycin ED. Aztreonam and Flagyl. Day #6 discontinued 2 IV Flagyl/by mouth vancomycin for C. difficile day #[address] Pepe following Rocephin day 7 11/01 - Blood cultures 2 no growth, urine no growth, sputum revealed Klebsiella /staph aureus, influenza negative, urine Legionella and pneumococcal antigens negative ID consult for antibiotic management Dr. Pepe 10/15 -BAL- NGTD FEN: Hypernatremia-resolved Hyperchloridemia-resolved Hypopotassemia Hypophosphatemia Continue Free water flushes 250 cc every 6 hours. Electrolytes repleted Repletion with potassium phosphate 30mmol MSK: History of left total knee arthroplasty PT evaluate and treat Sacral decubitus-wound care consulted follow-up recommendations Access -Left IJ CVL day 8 Prophylaxis - GI - Protonix - DVT - SCD/heparin subcutaneous Dispo: Discussed with and INSTALLATION HELPER at bedside. Critical Care: Level 2 Physician Griselda Waite MD Nov 11, 2016 13:51
[2016-11-11] MEDS ORDERED: DILTIAZEM HCL 25 MG/5 ML VIAL IV ONE (14:00)
--- NOTE | 2016-11-11 17:40 | HHI.IDPN ---
Subjective Subjective Remarks Extubated , weak cough cont to have large amount of liquid stool not much secretions, clear Antibiotics CFTX vanco PO flagl IV Allergies: Coded Allergies: Ativan (Unverified Allergy, Severe, 11/01/16) Bactrim (Verified Allergy, Severe, hives, 11/01/16) Levaquin (Verified Allergy, Severe, 11/01/16) Morphine (Unverified Allergy, Severe, 11/01/16) Penicillin (Unverified Allergy, Severe, 11/01/16) Tuna (Unverified Allergy, Severe, 11/01/16) Hydrocortisone (Verified Allergy, Unknown, UNKNOWN, 11/01/16) Saccharin (Verified Allergy, Unknown, UNKNOWN , 11/01/16) Objective . Vital Signs Date Time Temp Pulse Resp B/P Pulse Ox O2 Delivery O2 Flow Rate FiO2 11/11/16 14:00 127 11/11/16 13:07 97 Mask 6 11/11/16 12:00 86 11/11/16 12:00 99.6 86 24 114/56 100 11/11/16 12:00 45 11/11/16 11:26 100 45 11/11/16 10:00 87 11/11/16 08:30 45 11/11/16 08:00 99.5 87 21 121/82 100 11/11/16 08:00 87 11/11/16 08:00 45 11/11/16 06:00 92 11/11/16 04:00 140 11/11/16 04:00 99.6 140 18 107/75 100 11/11/16 04:00 45 11/11/16 03:58 100 45 11/11/16 02:00 92 11/11/16 00:00 50 11/11/16 00:00 99.3 92 18 102/53 100 11/11/16 00:00 45 11/11/16 00:00 92 11/10/16 23:44 99 45 11/10/16 22:00 94 11/10/16 20:10 99 45 11/10/16 20:00 50 11/10/16 20:00 99.0 93 20 97/52 100 11/10/16 20:00 93 11/10/16 18:00 50 11/10/16 11/10/16 11/11/16 15:00 23:00 07:00 Intake Total 2219 ml 916 ml Output Total 2250 ml 800 ml Balance -31 ml 116 ml IV Total 1077 ml 428 ml Tube Feeding 442 ml 288 ml Other 700 ml 200 ml Output Urine Total 1900 ml 600 ml Stool Total 350 ml 200 ml . Laboratory Tests Test 11/10/16 11/11/16 03:55 03:40 White Blood Count 15.4 TH/MM3 16.4 TH/MM3 Red Blood Count 3.08 MIL/MM3 3.10 MIL/MM3 Hemoglobin 9.7 GM/DL 9.7 GM/DL Hematocrit 29.1 % 29.2 % Mean Corpuscular Volume 94.3 FL 94.3 FL Mean Corpuscular Hemoglobin 31.6 PG 31.4 PG Mean Corpuscular Hemoglobin 33.5 % 33.3 % Concent Red Cell Distribution Width 15.1 % 15.4 % Platelet Count 325 TH/MM3 315 TH/MM3 Mean Platelet Volume 9.0 FL 9.3 FL Neutrophils (%) (Auto) 82.4 % Lymphocytes (%) (Auto) 10.3 % Monocytes (%) (Auto) 6.7 % Eosinophils (%) (Auto) 0.2 % Basophils (%) (Auto) 0.4 % Neutrophils # (Auto) 12.7 TH/MM3 Lymphocytes # (Auto) 1.6 TH/MM3 Monocytes # (Auto) 1.0 TH/MM3 Eosinophils # (Auto) 0.0 TH/MM3 Basophils # (Auto) 0.1 TH/MM3 CBC Comment AUTO DIFF Differential Comment AUTO DIFF CONFIRMED Laboratory Tests Test 11/10/16 11/11/16 03:55 03:40 Sodium Level 143 MEQ/L 143 MEQ/L Potassium Level 3.4 MEQ/L 3.4 MEQ/L Chloride Level 107 MEQ/L 107 MEQ/L Carbon Dioxide Level 27.6 MEQ/L 27.0 MEQ/L Anion Gap 8 MEQ/L 9 MEQ/L Blood Urea Nitrogen 46 MG/DL 37 MG/DL Creatinine 1.74 MG/DL 1.42 MG/DL Estimat Glomerular Filtration 37 ML/MIN 47 ML/MIN Rate Random Glucose 117 MG/DL 146 MG/DL Calcium Level 7.3 MG/DL 7.3 MG/DL Protein Corrected Calcium 8.3 MG/DL 8.2 MG/DL Phosphorus Level 2.0 MG/DL 2.1 MG/DL Magnesium Level 2.1 MG/DL 1.9 MG/DL Total Creatine Kinase 383 U/L 260 U/L Creatine Kinase MB 4.0 NG/ML Creatine Kinase MB % 1.0 % Total Protein 5.3 GM/DL 5.5 GM/DL Imaging Last Impressions Chest X-Ray 11/09/16 0600 Signed Impressions: Service Date/Time: Wednesday, November 09, 2016 05:19 - CONCLUSION: 1. Slight improvement in right upper lobe consolidation. Basilar airspace disease and pleural effusions are similar. Support apparatus unchanged. Kendall Caruso MD Gall Bladder Ultrasound 11/09/16 0000 Signed Impressions: Service Date/Time: Wednesday, November 09, 2016 14:36 - CONCLUSION: 1. Negative examination. Joshua Irby MD Head CT 11/06/16 0000 Signed Impressions: Service Date/Time: Sunday, November 06, 2016 22:00 - CONCLUSION: 1. Cerebral atrophy and chronic ischemic small vessel vasculopathy. 2. Remote bilateral basal ganglia lacunar infarcts. Chao Hensley MD Abdomen X-Ray 11/06/16 0000 Signed Impressions: Service Date/Time: Sunday, November 06, 2016 07:43 - CONCLUSION: Benign-appearing abdomen. Arvind Márquez MD Brain MRI 11/03/16 0000 Signed Impressions: Service Date/Time: October 18:28 - CONCLUSION: Stable chronic changes as described above. No acute intracranial process. Antolin Pulido MD Renal Ultrasound 11/01/16 0000 Signed Impressions: Service Date/Time: Tuesday, November 01, 2016 16:47 - CONCLUSION: 1. Kidneys are slightly echogenic which can be seen with medical renal disease. 2. Urinary bladder decompressed by Masters catheter. Chao Hensley MD Abdomen/Pelvis CT 11/01/16 0000 Signed Impressions: Service Date/Time: Tuesday, November 01, 2016 15:12 - CONCLUSION: 1. No acute finding is identified within the abdomen or pelvis. There is a segment of mildly dilated mid jejunum in the left abdomen but otherwise there are no findings present to suggest bowel obstruction. 2. Severe atherosclerotic disease. 3. Airspace consolidation in both lower lobes, left greater than right. Arvind Kyle MD Physical Exam CONSTITUTIONAL/GENERAL: mild resp apparent distress. + coughing TUBES/LINES/DRAINS: SKIN: No jaundice, rashes, or lesions. Skin temperature appropriate. Not diaphoretic. HEAD: Atraumatic. Normocephalic. EYES: Pupils equal and round and reactive. Extraocular motions intact. No scleral icterus. No injection or drainage. Fundi not examined. ENT: moist mucosae NECK: Trachea midline. Supple, nontender. No palpable thyroid enlargement or nodularity. CARDIOVASCULAR: Regular rate and rhythm without murmurs, gallops, or rubs. No JVD. Peripheral pulses not palpale on bl feet RESPIRATORY/CHEST: diffuse rhonchi, wheezing to auscultation GASTROINTESTINAL: Abdomen soft, non-tender ( no reaction to palpation), moderately distended. No hepato-splenomegaly, or palpable masses. No guarding. Bowel sounds diminished Incontinent of brown liquid stool in fecal collection system GENITOURINARY: Without palpable bladder distension. Masters catheter in place. MUSCULOSKELETAL: Extremities without clubbing, + 1-2 edema. No joint tenderness or effusion noted. No calf tenderness. No mottling or clubbing. no cyanosis, LYMPHATICS: No palpable cervical or supraclavicular adenopathy. NEUROLOGICAL:awake, alert PSYCHIATRIC:anxious Assessment & Plan Remarks PNA, Klebsiella, MSSA - most recent BAL clx neg so far - WBC 14 mln in BAL -CXR with some clearing Acute VDRF, sp re-intubation - extubated again Hypervirlent strain of C.diff - cont to have high volume liquid diarrhea Multiple abx allergies, including PCN, Levaquine, bactrim, sustantially limiting aailbale abx choice, though it appears from EMR that pt had CFTX and cefazoline uneventfully in 2014 MS change, not waking up despite off sedation Persistent leukocytosis - probably likely 2/2 C.diff - cont po vanco, IV flagyl for C.diff x 2 more weeks -dc CFTX for PNA - fu BAL clx untill final, will adjust abx por final BAL report - rechk C.diff in stool fu WBC Aletha Pepe MD Nov 11, 2016 17:40
[2016-11-11] MEDS ORDERED: DILTIAZEM HCL 50 MG/10 ML VIAL IV ONE (18:15)
[2016-11-11 19:33] LABS: C. DIFF EPI 027 PRESUMPTIVE NEGATIVE (NEGATIVE); C. DIFF TOXIN PCR NEGATIVE (NEGATIVE)
[2016-11-12] VITALS (17 sets, daily range): BP systolic 104–141; BP diastolic 50–61; PULSE 75–146; RESP 16–27; TEMP 98.2–99.6; O2SAT 95–99
[2016-11-12] MEDS: metroNIDAZOLE 500 MG INJ 100 ML IV SCH ×3 (01:38→15:56)
[2016-11-12] MEDS: RESP: ALBUTEROL 2.5 MG/IPRATROPIUM 0.5 MG NEB (PRN) INH (02:22)
[2016-11-12] MEDS ORDERED: ETOMIDATE 20 MG/10 ML VIAL ONE (02:49)
[2016-11-12] MEDS ORDERED: ROCURONIUM INJ 50 MG/5 ML VIAL ONE (02:49)
[2016-11-12] MEDS ORDERED: MIDAZOLAM HCL 5 MG/ML VIAL (1 ML) ONE (02:49)
--- NOTE | 2016-11-12 03:05 | PD.PROCEDR ---
Procedure Note Procedure After the risks and benefits were discussed the following procedure was performed: INTUBATION: The patient was put in optimal position for the procedure. Rapid sequence intubation was initiated by me using 15 milligrams of etomidate IV and 5 milligrams of Versed IV. NM paralysis with 50 mg IV Rocuronium. DL MAc 4 blade Grade 1 view single attempt. The patient was intubated with a 8.0 cuffed endotracheal tube. Tube placement was confirmed by visualization of the tube and balloon passing through the cords, capnometry and subsequent chest x-ray. Breath sounds were equal and well aerated bilaterally postintubation. No breath sounds over stomach. Patient tolerated procedure well. Curt Samuels MD Nov 12, 2016 03:05
[2016-11-12] MEDS ORDERED: TERBUTALINE INJ 1 MG/ML AMP SQ PRN (03:15)
[2016-11-12] MEDS: HEPARIN SODIUM - SQ 10,000 UNITS/ML VIAL SQ SCH ×2 (03:38→15:56)
[2016-11-12] MEDS: DILTIAZEM INJ 125 MG in SODIUM CHLORIDE 0.9% INJ 100 ML IV SCH ×2 (03:39→17:47)
[2016-11-12] MEDS: CHLORHEXIDINE GLUCONATE 2 % 1 PACK (2 CLOTHS) TOP SCH ×2 (04:00)
[2016-11-12] MEDS: METOCLOPRAMIDE HCL 10 MG/2 ML VIAL IV PUSH SCH ×3 (04:32→20:11)
[2016-11-12] MEDS: INSULIN NovoLIN REGULAR SUPPLEMENTAL SCALE SQ SCH ×4 (04:32→18:00)
[2016-11-12] MEDS: FREE WATER G-TUBE SCH ×4 (04:32→18:00)
[2016-11-12 05:51] LABS: HEMATOCRIT 31.3 % (39.0-51.0); MEAN CELL VOLUME 95.6 FL (80.0-100.0); MEAN CORPUSCULAR HEMOGLOBIN 31.2 PG (27.0-34.0); MEAN CORPUSCULAR HGB CONC 32.7 % (32.0-36.0); PLATELET COUNT 375 TH/MM3 (150-450); RED BLOOD COUNT 3.27 MIL/MM3 (4.50-5.90); RED CELL DISTRIBUTION WIDTH 15.7 % (11.6-17.2); REVIEW FLAG FINAL; WHITE BLOOD COUNT 18.3 TH/MM3 (4.0-11.0)
[2016-11-12 06:03] LABS: BLOOD GAS BASE EXCESS -1.3 mmol/L (-2-2); BLOOD GAS CARBOXYHEMOGLOBIN 1.7 % (0-4); BLOOD GAS HCO3 23 mmol/L (22-26); BLOOD GAS O2 HGB SATURATION 96 % (90-100); BLOOD GAS OXYGEN CONTENT 12.9 Vol % (12.0-20.0); BLOOD GAS PCO2 35 mmHg (38-42); BLOOD GAS PO2 122 mmHg (61-120); BLOOD GAS TOTAL HGB 9.4 G/DL (12.0-16.0); CRITICAL VALUE NO; OXYGEN DEVICE VENTILATOR; TEMP CORR TO 98.6
[2016-11-12 06:04] LABS: DRAW SITE RT RADIAL; FIO2 70 %; NUMBER OF ARTERIAL PUNCTURES 1; STAT NO; ULNAR PULSE PRESENT; VENT SETTINGS AC 16/500/PEEP5
[2016-11-12 06:12] LABS: BICARBONATE 23.7 MEQ/L (21.0-32.0); POTASSIUM 3.5 MEQ/L (3.5-5.1)
[2016-11-12] MEDS: fentaNYL DRIP 250 ML IV SCH ×2 (06:36→20:12)
--- NOTE | 2016-11-12 06:38 | HHI.CCPN ---
Subjective Remarks/Hospital Course 86-year-old male. Full code. Resident of [facility]. Date of admission 11/01/2016. Past medical history includes hypertension , COPD, right subdural hematoma status post lucien hole, Alzheimer dementia, chronic kidney disease stage III, BPH, depression, chronic benzodiazepine use and diabetes. Patient presented to [place] ED with several day history of decline in function including generalized illness clean diarrhea, shortness of breath. Recently the patient was diagnosed coronary artery pneumonia and started on an antibiotic. Today, the patient presents lethargic/no unresponsive. Initially seen on 6 L nasal cannula. Laboratories revealed sodium 174. Creatinine is 4.1. White blood cell count 24,000. Chest x-ray revealed possible pneumonia source. UA is currently pending. Patient was emergently intubated using 20 mg etomidate 100 mg succinylcholine due to altered mental status/airway protection 11/02: Afebrile. Adequate urine output. Currently on sedation vacation on CPAP trial. C. difficile positive noted. 11/03: Tmax 99.9. Currently afebrile. Positive BM. Tolerating tube feeding. Squeezes hand to command on sedation vacation but became more agitated and back in A. fib. EEG revealed swelling but no epileptic activity. MRI brain pending. 11/04: Noted that a wide-complex tachycardia overnight. Currently on amiodarone drip. Noted potassium 2.6, calcium low magnesium level. This all been replaced. Currently afebrile. Positive BM. Opens eyes and will squeeze hands occasionally bilateral x-rays. MRI brain revealed no acute intracranial findings. 11/05: Tmax 101.. Currently 99.3. High tube feed residuals currently at 600. 300 return. Recheck in one hour. Positive BM. Opens eyes to command and intermittently follows commands by squeezing hands. Currently on a fentanyl drip wean off. Subjective 11/06: Maximum 100.4. Currently afebrile. Resting comfortably in bed off fentanyl drip. Noted A. fib with RVR overnight on amiodarone drip. This will be discontinued. Placed on low-dose beta dwain in the interim. Positive BM. Not tolerating tube feeding. KUB pending. 11/07: Afebrile. The patient was extubated yesterday and reintubated overnight .The patient tolerating tube feeds for the last 24 hours, however noted elevated alkaline phosphatase. 11/08: Patient remains on CPAP, tolerated 9 hours last evening. Plan for continue CPAP trials throughout the night tonight. All sedation has been discontinued. Home medications Xanax 0.25 when necessary for anxiety. WBC count trending down. 11/09: Afebrile. The patient tolerated CPAP for approximately 20 hours last night. All continuous IV sedation discontinued. Plan today for SBT trial and possible extubation. The patient's alcohol alkaline phosphatase is noted to be trending upward, will obtain gallbladder ultrasound. 11/10: Tmax 100.1. The patient continues to be lethargic main on CPAP since 6 AM this morning. SBT trial parameters, NIF -17,TV 500, RSBI 54, the patient does not follow commands secondary to lethargy. All sedatives have been discontinued including Xanax which is on hold. We'll continue to monitor, attempt a trial of extubation today. Gallbladder ultrasound obtained within increasing alkaline phosphatase, results negative. 11/11 The patient was too lethargic yesterday to perform a trial of extubation. Today the patient is more alert and more responsive still not following commands. SBT trial performed again today though patient was noncompliant.RSBI 42 RR 24 NIF -22 TV 500, positive cuff leak. Performed a trial of extubation this morning. 11/12: Patient was extubated yesterday afternoon, and placed on Ventimask at 50%. The patient was weaned to face mask during the evening. Early this a.m. around 3 AM, the patient was noted to have an extremely weak cough, inability to accept expectorate, required frequent in NT suctioning, secondary to inability to clear secretions. The patient was noted to be tachypnea rate 30s to 40s, O2 O2 saturation being greater than 95%. During that time the patient was also noted to be in A. fib RVR with a heart rate 150 's requiring initiation of Cardizem infusion .The patient was reintubated secondary to inability to clear secretions and protect airway. Mrs. Curry was notified of the events, will discuss with her today plan for tracheostomy. The patient was placed on this a.m., a low-dose fentanyl infusion and Cardizem infusion continues at 10 mg an hour will continue to wean. The patient continues on free water flushes with sodium level 144. Objective Vital Signs Date Time Temp Pulse Resp B/P Pulse Ox O2 Delivery O2 Flow Rate FiO2 11/12/16 02:56 99 80 11/12/16 00:00 99.6 92 27 110/50 11/11/16 20:21 Venturi Mask 6.00 Intake and Output 11/11/16 11/11/16 11/12/16 08:00 16:00 00:00 Intake Total 916 ml 629 ml Output Total 800 ml 1250 ml Balance 116 ml -621 ml Result Diagram: 11/12/16 0450 11/12/16 0450 Other Results Laboratory Tests Test 11/12/16 05:51 Blood Gas Puncture Site RT RADIAL Blood Gas Patient Temperature 98.6 Blood Gas HCO3 23 mmol/L (22-26) Blood Gas Base Excess -1.3 mmol/L (-2-2) Blood Gas Oxygen Saturation 96 % (90-100) Arterial Blood pH 7.42 (7.380-7.420) Arterial Blood Partial 35 mmHg (38-42) Pressure CO2 Arterial Blood Partial 122 mmHg Pressure O2 (61-120) Arterial Blood Oxygen Content 12.9 Vol % (12.0-20.0) Arterial Blood 1.7 % (0-4) Carboxyhemoglobin Arterial Blood Methemoglobin 1.0 % (0-2) Blood Gas Hemoglobin 9.4 G/DL (12.0-16.0) Oxygen Delivery Device VENTILATOR Blood Gas Ventilator Setting AC 16/500/PEEP5 Blood Gas Inspired Oxygen 70 % Imaging Last Impressions Chest X-Ray 11/05/16 0000 Signed Impressions: Service Date/Time: Saturday, November 05, 2016 09:21 - CONCLUSION: Increase in left lower lung atelectasis versus consolidation and increase in small left pleural effusion. Sarthak Clark MD Brain MRI 11/03/16 0000 Signed Impressions: Service Date/Time: October 18:28 - CONCLUSION: Stable chronic changes as described above. No acute intracranial process. Antolin Pulido MD Head CT 11/01/16 1139 Signed Impressions: Service Date/Time: Tuesday, November 01, 2016 15:09 - CONCLUSION: 1. Cerebral atrophy and chronic ischemic small vessel vasculopathy. 2. Remote bilateral lacunar infarcts. Chao Hensley MD Renal Ultrasound 11/01/16 0000 Signed Impressions: Service Date/Time: Tuesday, November 01, 2016 16:47 - CONCLUSION: 1. Kidneys are slightly echogenic which can be seen with medical renal disease. 2. Urinary bladder decompressed by Masters catheter. Chao Hensley MD Abdomen/Pelvis CT 11/01/16 0000 Signed Impressions: Service Date/Time: Tuesday, November 01, 2016 15:12 - CONCLUSION: 1. No acute finding is identified within the abdomen or pelvis. There is a segment of mildly dilated mid jejunum in the left abdomen but otherwise there are no findings present to suggest bowel obstruction. 2. Severe atherosclerotic disease. 3. Airspace consolidation in both lower lobes, left greater than right. Arvind Kyle MD Objective Remarks GENERAL: 86-year-old male, awake and alert on BiPAP, looking towards me but not following my commands SKIN: Warm and dry.abrasions on knees bilaterally and sacral decubitus ulcer/ regimen stage I, noticed cellulitic weeping from bilateral upper edematous extremities HEAD: Atraumatic. Normocephalic. EYES: Left pupil is 2 mm and irregular. Right pupil is pinpoint in reactive to light. No scleral icterus. No injection or drainage. ENT: No nasal bleeding or discharge. Mucous membranes pink and moist. NECK: Trachea midline. No JVD. CARDIOVASCULAR: Regular rate and rhythm. S1, S2. No S4. Without murmur RESPIRATORY: Noted expiratory wheeze. Breath sounds equal bilaterally. GASTROINTESTINAL: Abdomen soft, non-tender, nondistended. Hepatic and splenic margins not palpable. MUSCULOSKELETAL: Extremities without noted in peripheral edema. No obvious deformities. NEUROLOGICAL: Intubated.RASS -3. Currently not following commands Urinary Catheter: Yes Date of Insertion: Nov 03, 2016 Line: Central Venous Catheter Side: Left Location: Internal, Jugular A/P Assessment and Plan Neuro/Psych: Acute toxic metabolic encephalopathy Alzheimer's dementia Depression History of right subdural hematoma status post bur hole Chronic benzodiazepine use Chronic narcotic use History of insomnia Lethargy Goal of RASS -1 Xanax 0.25 every 12 hours when necessary for anxiety is continued on 11/10 secondary to lethargy. Home medication is Xanax every [address] head 11/02 revealed bilateral lacunar basal ganglia infarct/old with ventriculomegaly 11/03 - MRI brain revealed no acute intracranial findings EEG shows no signs of seizure activity Continue sertraline 25 mg by mouth daily for depression Holding melatonin 3 mg at night for insomnia Patient awake, spontaneous eye opening, not following commands Fentanyl infusion low-dose initiated for sedation CV: History of right CVA Hypertension Atrial fibrillation with RVR Lactic acidosis Elevated troponin likely demand ischemia Initially EKG reveals sinus tachycardia with diffuse ST T changes throughout multiple leads likely related to dehydration/demand ischemia Cycle troponins. Peaked at 1.16. Currently 0.83 and trending downward Echo revealed EF 55-60%. Will require nuclear stress test prior to discharge Holding home medications lisinopril 10 mg daily in light of hypotension/acute kidney injury Discontinued amiodarone drip or 11/06. Potassium phosphate repletion 11/11 30 mmols potassium 3.4, phosphorus 2.0 11/09-EKG-sinus rhythm Currently on Cardizem infusion, will wean to PO dosing Metoprolol PRN Resp: Acute hypoxemic respiratory failure Mechanical ventilation before meals/16/500/50%/5 Ventilator bundle Bronchodilator therapy every 6 hours and as needed, and every 2 hours when necessary 11/09 Chest [id number] improvement Continue CPAP trials as long as tolerated by patient Trial of extubation performed (11/11), third reintubation(11/12) Will discuss with family plan for tracheostomy GI: Diarrhea/C. difficile positive Reinitiate Tube feeds Nepro will rate 50 cc/hour Add prokinetic agent Reglan 5mg every 8hrs Protonix for GI prophylaxis. Protonix [address] daily at home CT abdomen/pelvis revealed no obstruction or possible some mild dilatation the mid jejunum. Atherosclerotic vascular disease KUB 11/07 nonspecific Gallbladder ultrasound-negative 11/11 C. difficile antigen negative : History of BPH status post TURP Maintain Masters Strict I's and O's Endo: Diabetes mellitus type 2 Hyperglycemia Sliding-scale insulin with Accu-Cheks every 6 hours to maintain euglycemia/low protocol Adjusted sliding-scale insulin secondary to hypoglycemic episode Renal: Acute on chronic kidney injury-resolved Rhabdomyolysis-resolved 0.45 NS @75cc/hr discontinued 11/11 Avoid nephrotoxic drugs Renal ultrasound no hydronephrosis. Possibly early medical renal disease. Negative urine eosinophils Creatinine kinase 260 within normal limits Sodium within normal [id number] will continue free water flushes for now Creatinine 1.4 from 1.74 yesterday, continue to monitor Heme: Leukocytosis Normocytic anemia Daily CBC/CMP. Monitor trends ID: Likely healthcare associated pneumonia -Klebsiella and staph aureus C. difficile positive Received vancomycin ED. Aztreonam and Flagyl. Day #6 discontinued 11/05 IV Flagyl/by mouth vancomycin for C. difficile day #[address] Pepe following Rocephin day 7 11/01 - Blood cultures 2 no growth, urine no growth, sputum revealed Klebsiella /staph aureus, influenza negative, urine Legionella and pneumococcal antigens negative ID consult for antibiotic management Dr. Pepe 10/15 -BAL- NGTD FEN: Hypernatremia-resolved Hyperchloridemia-resolved Hypopotassemia Hypophosphatemia Continue Free water flushes 250 cc every 6 hours. Electrolytes repleted Repletion with potassium phosphate 30mmol MSK: History of left total knee arthroplasty PT evaluate and treat Sacral decubitus-wound care consulted follow-up recommendations Access -Left IJ CVL day 8 Prophylaxis - GI - Protonix - DVT - SCD/heparin subcutaneous Dispo: Discussed with and [employer] at bedside. Critical Care: Level 3 Physician Griselda Waite MD Nov 12, 2016 06:38
--- NOTE | 2016-11-12 07:01 | RADRPT ---
EXAM DATE/TIME: 11/12/2016 02:58 [facility] COMPARISON: CHEST SINGLE AP, November 09, 2016, 5:19. INDICATIONS : E-T tube placement. MEDICAL HISTORY : Hypertension. Diabetes mellitus type II. Chronic obstructive pulmonary disease. SURGICAL HISTORY : Appendectomy. Prostatectomy. Carotid endarterectomy. ENCOUNTER: Subsequent ACUITY: 1 week PAIN SCORE: Non-responsive. LOCATION: Bilateral chest FINDINGS: Endotracheal tube tip is in good position about 3 cm above the veda. A nasogastric tube descends to the distal esophagus with the sidehole in the low chest. Left neck central line is stable in satisfa ctory position. Hazy diffuse bilateral pleuroparenchymal lung opacities are similar, slightly worse o n the right than previously though somewhat improved on the left. Accounting for significant rotation , the cardiac contours are unchanged. CONCLUSION: Satisfactory endotracheal tube positioning. The NG tube does not reach the abdomen Arvind Ramires MD on November 12, 2016 at 6:58 Board Certified Radiologist. This report was verified electronically.
[2016-11-12] MEDS: CHLORHEXIDINE 0.12% (ORAL KIT) 15 ML CUP MT SCH ×2 (08:00→20:00)
[2016-11-12] MEDS: RESP: ALBUTEROL 2.5 MG/IPRATROPIUM 0.5 MG NEB (SCH) NEB ×3 (08:36→20:00)
[2016-11-12] MEDS: VANCOMYCIN 500 MG VIAL (FOR ORAL USE ONLY) PO SCH ×4 (09:00→20:11)
[2016-11-12] MEDS: SODIUM CHLORIDE 0.9% FLUSH 5 ML FLUSH IV FLUSH SCH ×2 (09:00→20:11)
[2016-11-12] MEDS: BENEPROTEIN POWDER 1 PACK G-TUBE SCH ×3 (09:00→18:00)
[2016-11-12] MEDS: SERTRALINE HCL 50 MG TAB PO SCH (09:00)
[2016-11-12] MEDS: SODIUM CHLORIDE 0.9% FLUSH 5 ML FLUSH IVF SCH (09:00)
[2016-11-12] MEDS: ARTIFICIAL TEARS OPTH SOLN 15 ML BTL EACH EYE SCH ×3 (09:00→18:00)
[2016-11-12] MEDS: PANTOPRAZOLE SODIUM 40 MG VIAL IV SCH (09:00)
--- NOTE | 2016-11-12 15:09 | HHI.IDPN ---
Subjective Subjective Remarks reintubated back on vent cont to have large amount of liquid stool large amount of secretions afebrile Antibiotics vanco PO flagl IV Allergies: Coded Allergies: Ativan (Unverified Allergy, Severe, 11/01/16) Bactrim (Verified Allergy, Severe, hives, 11/01/16) Levaquin (Verified Allergy, Severe, 11/01/16) Morphine (Unverified Allergy, Severe, 11/01/16) Penicillin (Unverified Allergy, Severe, 11/01/16) Tuna (Unverified Allergy, Severe, 11/01/16) Hydrocortisone (Verified Allergy, Unknown, UNKNOWN, 11/01/16) Saccharin (Verified Allergy, Unknown, UNKNOWN , 11/01/16) Objective . Vital Signs Date Time Temp Pulse Resp B/P Pulse Ox O2 Delivery O2 Flow Rate FiO2 11/12/16 12:08 97 40 11/12/16 12:00 75 11/12/16 12:00 80 11/12/16 12:00 98.2 75 17 124/60 98 11/12/16 10:00 75 11/12/16 09:59 81 11/12/16 08:38 95 40 11/12/16 08:00 98.5 75 16 141/61 98 11/12/16 08:00 75 11/12/16 08:00 80 11/12/16 06:00 87 11/12/16 04:00 98.7 146 16 127/58 98 11/12/16 04:00 146 11/12/16 02:56 99 80 11/12/16 02:00 92 11/12/16 00:00 99.6 92 27 110/50 96 11/12/16 00:00 92 11/11/16 22:00 96 11/11/16 20:21 95 Venturi Mask 6.00 11/11/16 20:00 98.0 86 25 132/70 94 11/11/16 20:00 86 11/11/16 18:00 128 11/11/16 16:00 98.2 86 19 154/76 97 11/11/16 16:00 88 11/11/16 11/11/16 11/12/16 15:00 23:00 07:00 Intake Total 629 ml 664 ml Output Total 1250 ml 900 ml Balance -621 ml -236 ml Intake Oral 0 ml 0 ml IV Total 629 ml 664 ml Tube Feeding 0 ml Output Urine Total 825 ml 500 ml Stool Total 425 ml 400 ml . Laboratory Tests Test 11/11/16 11/12/16 03:40 04:50 White Blood Count 16.4 TH/MM3 18.3 TH/MM3 Red Blood Count 3.10 MIL/MM3 3.27 MIL/MM3 Hemoglobin 9.7 GM/DL 10.2 GM/DL Hematocrit 29.2 % 31.3 % Mean Corpuscular Volume 94.3 FL 95.6 FL Mean Corpuscular Hemoglobin 31.4 PG 31.2 PG Mean Corpuscular Hemoglobin 33.3 % 32.7 % Concent Red Cell Distribution Width 15.4 % 15.7 % Platelet Count 315 TH/MM3 375 TH/MM3 Mean Platelet Volume 9.3 FL 9.2 FL Laboratory Tests Test 11/11/16 11/12/16 03:40 04:50 Sodium Level 143 MEQ/L 144 MEQ/L Potassium Level 3.4 MEQ/L 3.5 MEQ/L Chloride Level 107 MEQ/L 109 MEQ/L Carbon Dioxide Level 27.0 MEQ/L 23.7 MEQ/L Anion Gap 9 MEQ/L 11 MEQ/L Blood Urea Nitrogen 37 MG/DL 30 MG/DL Creatinine 1.42 MG/DL 1.26 MG/DL Estimat Glomerular Filtration 47 ML/MIN 54 ML/MIN Rate Random Glucose 146 MG/DL 98 MG/DL Calcium Level 7.3 MG/DL 7.7 MG/DL Protein Corrected Calcium 8.2 MG/DL Phosphorus Level 2.1 MG/DL 3.5 MG/DL Magnesium Level 1.9 MG/DL 2.0 MG/DL Total Creatine Kinase 260 U/L Total Protein 5.5 GM/DL Imaging Last Impressions Chest X-Ray 11/12/16 0600 Signed Impressions: Service Date/Time: Saturday, November 12, 2016 02:58 - CONCLUSION: Satisfactory endotracheal tube positioning. The NG tube does not reach the abdomen Arvind Ramires MD Gall Bladder Ultrasound 11/09/16 0000 Signed Impressions: Service Date/Time: Wednesday, November 09, 2016 14:36 - CONCLUSION: 1. Negative examination. Joshua Irby MD Head CT 11/06/16 0000 Signed Impressions: Service Date/Time: Sunday, November 06, 2016 22:00 - CONCLUSION: 1. Cerebral atrophy and chronic ischemic small vessel vasculopathy. 2. Remote bilateral basal ganglia lacunar infarcts. Chao Hensley MD Abdomen X-Ray 11/06/16 0000 Signed Impressions: Service Date/Time: Sunday, November 06, 2016 07:43 - CONCLUSION: Benign-appearing abdomen. Arvind Márquez MD Brain MRI 11/03/16 0000 Signed Impressions: Service Date/Time: October 18:28 - CONCLUSION: Stable chronic changes as described above. No acute intracranial process. Antolin Pulido MD Renal Ultrasound 11/01/16 0000 Signed Impressions: Service Date/Time: Tuesday, November 01, 2016 16:47 - CONCLUSION: 1. Kidneys are slightly echogenic which can be seen with medical renal disease. 2. Urinary bladder decompressed by Masters catheter. Chao Hensley MD Abdomen/Pelvis CT 11/01/16 0000 Signed Impressions: Service Date/Time: Tuesday, November 01, 2016 15:12 - CONCLUSION: 1. No acute finding is identified within the abdomen or pelvis. There is a segment of mildly dilated mid jejunum in the left abdomen but otherwise there are no findings present to suggest bowel obstruction. 2. Severe atherosclerotic disease. 3. Airspace consolidation in both lower lobes, left greater than right. Arvind Kyle MD Physical Exam CONSTITUTIONAL/GENERAL: sedated, int'd TUBES/LINES/DRAINS: SKIN: No jaundice, rashes, or lesions. Skin temperature appropriate. Not diaphoretic. HEAD: Atraumatic. Normocephalic. EYES: Pupils equal and round and reactive. Extraocular motions intact. No scleral icterus. No injection or drainage. Fundi not examined. ENT: moist mucosae NECK: Trachea midline. Supple, nontender. No palpable thyroid enlargement or nodularity. CARDIOVASCULAR: Regular rate and rhythm without murmurs, gallops, or rubs. No JVD. Peripheral pulses not palpale on bl feet RESPIRATORY/CHEST: + rhonchi b/l to auscultation GASTROINTESTINAL: Abdomen soft, non-tender ( no reaction to palpation), moderately distended. No hepato-splenomegaly, or palpable masses. No guarding. Bowel sounds diminished Incontinent of brown liquid stool in fecal collection system GENITOURINARY: Without palpable bladder distension. Masters catheter in place. MUSCULOSKELETAL: Extremities without clubbing, + 1-2 edema. No joint tenderness or effusion noted. No calf tenderness. No mottling or clubbing. no cyanosis, LYMPHATICS: No palpable cervical or supraclavicular adenopathy. NEUROLOGICAL:sedated Assessment & Plan Remarks ? New PNA PNA, Klebsiella, MSSA - most recent BAL clx neg so far - WBC 14 mln in BAL -CXR with some clearing Acute VDRF, sp 2nd re-intubation Hypervirlent strain of C.diff - cont to have high volume liquid diarrhea Multiple abx allergies, including PCN, Levaquine, bactrim, sustantially limiting aailbale abx choice, though it appears from EMR that pt had CFTX and cefazoline uneventfully in 2014 MS change, not waking up despite off sedation Persistent leukocytosis - probably likely 2/2 C.diff - cont po vanco, IV flagyl for C.diff x 2 more weeks - start cefepime, vanco for PNA - repeat sputum clx fu WBC dw Aletha Bird MD Nov 12, 2016 15:09
[2016-11-12] MEDS ORDERED: Vancomycin Consult Pharmacy 1 EA IV SCH (15:15)
[2016-11-12] MEDS: CEFEPIME INJ 2,000 MG in SODIUM CHLORIDE 0.9% INJ 100 ML IV SCH (15:55)
[2016-11-12] MEDS: VANCOMYCIN 1,500 MG/NS 500 ML IV SCH ×2 (18:26)
[2016-11-12] MEDS: DILTIAZEM HCL 60 MG TAB PO SCH ×2 (18:26→20:11)
[2016-11-13] VITALS (19 sets, daily range): BP systolic 104–137; BP diastolic 51–94; PULSE 65–100; RESP 15–19; TEMP 97.3–98.9; O2SAT 92–99
[2016-11-13] MEDS: metroNIDAZOLE 500 MG INJ 100 ML IV SCH ×4 (00:49→23:59)
[2016-11-13] MEDS: HEPARIN SODIUM - SQ 10,000 UNITS/ML VIAL SQ SCH ×2 (03:34→16:03)
[2016-11-13] MEDS: CHLORHEXIDINE GLUCONATE 2 % 1 PACK (2 CLOTHS) TOP SCH ×2 (03:34)
[2016-11-13] MEDS: CEFEPIME INJ 2,000 MG in SODIUM CHLORIDE 0.9% INJ 100 ML IV SCH ×2 (03:34→16:02)
[2016-11-13 04:30] LABS: HEMATOCRIT 27.5 % (39.0-51.0); MEAN CELL VOLUME 97.5 FL (80.0-100.0); MEAN CORPUSCULAR HEMOGLOBIN 31.7 PG (27.0-34.0); MEAN CORPUSCULAR HGB CONC 32.6 % (32.0-36.0); PLATELET COUNT 317 TH/MM3 (150-450); RED BLOOD COUNT 2.82 MIL/MM3 (4.50-5.90); RED CELL DISTRIBUTION WIDTH 15.6 % (11.6-17.2); REVIEW FLAG FINAL; WHITE BLOOD COUNT 12.2 TH/MM3 (4.0-11.0)
[2016-11-13] MEDS: FREE WATER G-TUBE SCH ×5 (05:04→23:58)
[2016-11-13] MEDS: INSULIN NovoLIN REGULAR SUPPLEMENTAL SCALE SQ SCH ×5 (05:05→23:59)
[2016-11-13] MEDS: fentaNYL DRIP 250 ML IV SCH (05:05)
[2016-11-13] MEDS: METOCLOPRAMIDE HCL 10 MG/2 ML VIAL IV PUSH SCH ×3 (05:05→21:06)
[2016-11-13 05:30] LABS: BICARBONATE 26.3 MEQ/L (21.0-32.0); MAGNESIUM 1.9 MG/DL (1.5-2.5); POTASSIUM 3.5 MEQ/L (3.5-5.1)
[2016-11-13 05:47] LABS: CALCIUM-PROTEIN CORRECTED 8.5 MG/DL (8.5-10.1)
[2016-11-13] MEDS: RESP: ALBUTEROL 2.5 MG/IPRATROPIUM 0.5 MG NEB (SCH) NEB (07:56)
[2016-11-13] MEDS: CHLORHEXIDINE 0.12% (ORAL KIT) 15 ML CUP MT SCH ×2 (08:00→21:06)
[2016-11-13] MEDS: PANTOPRAZOLE SODIUM 40 MG VIAL IV SCH (08:08)
[2016-11-13] MEDS: VANCOMYCIN 500 MG VIAL (FOR ORAL USE ONLY) PO SCH ×4 (08:08→21:06)
[2016-11-13] MEDS: DILTIAZEM HCL 60 MG TAB PO SCH ×4 (08:09→21:06)
[2016-11-13] MEDS: SERTRALINE HCL 50 MG TAB PO SCH (08:09)
[2016-11-13] MEDS: ARTIFICIAL TEARS OPTH SOLN 15 ML BTL EACH EYE SCH ×3 (09:00→18:00)
[2016-11-13] MEDS: SODIUM CHLORIDE 0.9% FLUSH 5 ML FLUSH IVF SCH (09:00)
[2016-11-13] MEDS: BENEPROTEIN POWDER 1 PACK G-TUBE SCH ×3 (09:00→18:00)
[2016-11-13] MEDS: SODIUM CHLORIDE 0.9% FLUSH 5 ML FLUSH IV FLUSH SCH ×2 (09:00→21:06)
[2016-11-13] MEDS: RESP: ALBUTEROL 2.5 MG/IPRATROPIUM 0.5 MG NEB (PRN) INH (12:41)
[2016-11-13] MEDS: VANCOMYCIN 1,500 MG/NS 500 ML IV SCH ×2 (18:27)
--- NOTE | 2016-11-13 18:41 | HHI.CCPN ---
Subjective Remarks/Hospital Course 86-year-old male. Full code. Resident of [facility]. Date of admission 11/01/2016. Past medical history includes hypertension , COPD, right subdural hematoma status post lucien hole, Alzheimer dementia, chronic kidney disease stage III, BPH, depression, chronic benzodiazepine use and diabetes. Patient presented to [place] ED with several day history of decline in function including generalized illness clean diarrhea, shortness of breath. Recently the patient was diagnosed coronary artery pneumonia and started on an antibiotic. Today, the patient presents lethargic/no unresponsive. Initially seen on 6 L nasal cannula. Laboratories revealed sodium 174. Creatinine is 4.1. White blood cell count 24,000. Chest x-ray revealed possible pneumonia source. UA is currently pending. Patient was emergently intubated using 20 mg etomidate 100 mg succinylcholine due to altered mental status/airway protection 11/02: Afebrile. Adequate urine output. Currently on sedation vacation on CPAP trial. C. difficile positive noted. 11/03: Tmax 99.9. Currently afebrile. Positive BM. Tolerating tube feeding. Squeezes hand to command on sedation vacation but became more agitated and back in A. fib. EEG revealed swelling but no epileptic activity. MRI brain pending. 11/04: Noted that a wide-complex tachycardia overnight. Currently on amiodarone drip. Noted potassium 2.6, calcium low magnesium level. This all been replaced. Currently afebrile. Positive BM. Opens eyes and will squeeze hands occasionally bilateral x-rays. MRI brain revealed no acute intracranial findings. 11/05: Tmax 101.. Currently 99.3. High tube feed residuals currently at 600. 300 return. Recheck in one hour. Positive BM. Opens eyes to command and intermittently follows commands by squeezing hands. Currently on a fentanyl drip wean off. Subjective 11/06: Maximum 100.4. Currently afebrile. Resting comfortably in bed off fentanyl drip. Noted A. fib with RVR overnight on amiodarone drip. This will be discontinued. Placed on low-dose beta dwain in the interim. Positive BM. Not tolerating tube feeding. KUB pending. 11/07: Afebrile. The patient was extubated yesterday and reintubated overnight .The patient tolerating tube feeds for the last 24 hours, however noted elevated alkaline phosphatase. 11/08: Patient remains on CPAP, tolerated 9 hours last evening. Plan for continue CPAP trials throughout the night tonight. All sedation has been discontinued. Home medications Xanax 0.25 when necessary for anxiety. WBC count trending down. 11/09: Afebrile. The patient tolerated CPAP for approximately 20 hours last night. All continuous IV sedation discontinued. Plan today for SBT trial and possible extubation. The patient's alcohol alkaline phosphatase is noted to be trending upward, will obtain gallbladder ultrasound. 11/10: Tmax 100.1. The patient continues to be lethargic main on CPAP since 6 AM this morning. SBT trial parameters, NIF -17,TV 500, RSBI 54, the patient does not follow commands secondary to lethargy. All sedatives have been discontinued including Xanax which is on hold. We'll continue to monitor, attempt a trial of extubation today. Gallbladder ultrasound obtained within increasing alkaline phosphatase, results negative. 11/11 The patient was too lethargic yesterday to perform a trial of extubation. Today the patient is more alert and more responsive still not following commands. SBT trial performed again today though patient was noncompliant.RSBI 42 RR 24 NIF -22 TV 500, positive cuff leak. Performed a trial of extubation this morning. 11/12: Patient was extubated yesterday afternoon, and placed on Ventimask at 50%. The patient was weaned to face mask during the evening. Early this a.m. around 3 AM, the patient was noted to have an extremely weak cough, inability to accept expectorate, required frequent in NT suctioning, secondary to inability to clear secretions. The patient was noted to be tachypnea rate 30s to 40s, O2 O2 saturation being greater than 95%. During that time the patient was also noted to be in A. fib RVR with a heart rate 150 's requiring initiation of Cardizem infusion .The patient was reintubated secondary to inability to clear secretions and protect airway. Mrs. Curry was notified of the events, will discuss with her today plan for tracheostomy. The patient was placed on this a.m., a low-dose fentanyl infusion and Cardizem infusion continues at 10 mg an hour will continue to wean. The patient continues on free water flushes with sodium level 144. 11/13: Afebrile. No acute events overnight. Plan for tracheostomy and PEG placement this week. The patient continues on low dose fentanyl infusion.Cardizem PO was intiated yesterday, and Cardizem infusion was weaned off last night. Objective Vital Signs Date Time Temp Pulse Resp B/P Pulse Ox O2 Delivery O2 Flow Rate FiO2 11/13/16 18:00 73 11/13/16 16:00 55 11/13/16 16:00 97.8 19 118/74 98 11/11/16 20:21 Venturi Mask 6.00 Intake and Output 11/12/16 11/12/16 11/13/16 08:00 16:00 00:00 Intake Total 664 ml 574 ml 1096 ml Output Total 900 ml 700 ml 675 ml Balance -236 ml -126 ml 421 ml Result Diagram: 11/13/16 0345 11/13/16 0345 Imaging Last Impressions Chest X-Ray 11/05/16 0000 Signed Impressions: Service Date/Time: Saturday, November 05, 2016 09:21 - CONCLUSION: Increase in left lower lung atelectasis versus consolidation and increase in small left pleural effusion. Sarthak Clark MD Brain MRI 11/03/16 0000 Signed Impressions: Service Date/Time: October 18:28 - CONCLUSION: Stable chronic changes as described above. No acute intracranial process. Antolin Pulido MD Head CT 11/01/16 1139 Signed Impressions: Service Date/Time: Tuesday, November 01, 2016 15:09 - CONCLUSION: 1. Cerebral atrophy and chronic ischemic small vessel vasculopathy. 2. Remote bilateral lacunar infarcts. Chao Hensley MD Renal Ultrasound 11/01/16 0000 Signed Impressions: Service Date/Time: Tuesday, November 01, 2016 16:47 - CONCLUSION: 1. Kidneys are slightly echogenic which can be seen with medical renal disease. 2. Urinary bladder decompressed by Masters catheter. Chao Hensley MD Abdomen/Pelvis CT 11/01/16 0000 Signed Impressions: Service Date/Time: Tuesday, November 01, 2016 15:12 - CONCLUSION: 1. No acute finding is identified within the abdomen or pelvis. There is a segment of mildly dilated mid jejunum in the left abdomen but otherwise there are no findings present to suggest bowel obstruction. 2. Severe atherosclerotic disease. 3. Airspace consolidation in both lower lobes, left greater than right. Arvind Kyle MD Objective Remarks GENERAL: 86-year-old male, intubated and sedated SKIN: Warm and dry.abrasions on knees bilaterally and sacral decubitus ulcer/ regimen stage I, peripheral edema HEAD: Atraumatic. Normocephalic. EYES: Left pupil is 2 mm and irregular. Right pupil is pinpoint in reactive to light. No scleral icterus. No injection or drainage. ENT: No nasal bleeding or discharge. Mucous membranes pink and moist. NECK: Trachea midline. No JVD. CARDIOVASCULAR: Regular rate and rhythm. S1, S2. No S4. Without murmur RESPIRATORY: Noted expiratory wheeze. Breath sounds equal bilaterally. GASTROINTESTINAL: Abdomen soft, non-tender, nondistended. Hepatic and splenic margins not palpable. MUSCULOSKELETAL: Extremities peripheral edema, resolving. No obvious deformities. NEUROLOGICAL: Intubated.RASS -2. Sedated Date of Insertion: Nov 03, 2016 Line: Central Venous Catheter Side: Left Location: Internal, Jugular A/P Assessment and Plan Neuro/Psych: Acute toxic metabolic encephalopathy Alzheimer's dementia Depression History of right subdural hematoma status post bur hole Chronic benzodiazepine use Chronic narcotic use History of insomnia Lethargy Xanax held CT head 11/02 revealed bilateral lacunar basal ganglia infarct/old with ventriculomegaly 11/03 - MRI brain revealed no acute intracranial findings EEG shows no signs of seizure activity Continue sertraline 25 mg by mouth daily for depression Holding melatonin 3 mg at night for insomnia Patient sedated and intubated Fentanyl infusion low-dose initiated for sedation, Goal RASS -2 CV: History of right CVA Hypertension Atrial fibrillation with RVR-resolved Lactic acidosis Elevated troponin likely demand ischemia Initially EKG reveals sinus tachycardia with diffuse ST T changes throughout multiple leads likely related to dehydration/demand ischemia Cycle troponins. Peaked at 1.16. Currently 0.83 and trending downward Echo revealed EF 55-60%. Will require nuclear stress test prior to discharge Holding home medications lisinopril 10 mg daily in light of hypotension/acute kidney injury Discontinued amiodarone drip or 11/06. Potassium phosphate repletion 11/11 30 mmols potassium 3.4, phosphorus 2.0 11/09-EKG-sinus rhythm Cardizem 60mg QID started 11/12, infusion dc'd Metoprolol PRN Resp: Acute hypoxemic respiratory failure Mechanical ventilation before meals/16/500/50%/5 Ventilator bundle Bronchodilator therapy every 6 hours and as needed, and every 2 hours when necessary 11/09 Chest [id number] improvement Continue CPAP trials as long as tolerated by patient Trial of extubation performed (11/11), third reintubation(11/12) Schedule for tracheostomy this week- consent obtained. requests Mon, , , or Mon GI: Diarrhea/C. difficile positive Reinitiate Tube feeds Nepro will rate 50 cc/hour Add prokinetic agent Reglan 5mg every 8hrs Protonix for GI prophylaxis. Protonix [address] daily at home CT abdomen/pelvis revealed no obstruction or possible some mild dilatation the mid jejunum. Atherosclerotic vascular disease KUB 11/07 nonspecific Gallbladder ultrasound-negative 11/11 C. difficile antigen negative GI consulted for PEG placement this week : History of BPH status post TURP Maintain Masters Strict I's and O's Endo: Diabetes mellitus type 2 Hyperglycemia Sliding-scale insulin dc'd Glucose monitoring per ICU protocol Renal: Acute on chronic kidney injury-resolved Rhabdomyolysis-resolved 0.45 NS @75cc/hr discontinued 11/11 Avoid nephrotoxic drugs Renal ultrasound no hydronephrosis. Possibly early medical renal disease. Negative urine eosinophils Creatinine kinase 260 within normal limits Sodium within normal , will continue free water flushes for now Creatinine improvoing Heme: Leukocytosis Normocytic anemia Daily CBC/CMP. Monitor trends ID: Likely healthcare associated pneumonia -Klebsiella and staph aureus C. difficile positive Received vancomycin ED. Aztreonam and Flagyl. Day #6 discontinued 11/05 IV Flagyl/by mouth vancomycin for C. difficile day #[address] Pepe following Rocephin day 8 11/01 - Blood cultures 2 no growth, urine no growth, sputum revealed Klebsiella /staph aureus, influenza negative, urine Legionella and pneumococcal antigens negative ID consult for antibiotic management Dr. Pepe 10/15 -BAL- NGTD 11/11-C Diff antigen- negative FEN: Hypernatremia-resolved Hyperchloridemia-resolved Hypopotassemia Hypophosphatemia Continue Free water flushes 250 cc every 6 hours. Replete electrolytes per ICU protocol MSK: History of left total knee arthroplasty PT evaluate and treat- Functional Maintenance Sacral decubitus-wound care consulted follow-up recommendations Access -Left IJ CVL day 9 Prophylaxis - GI - Protonix - DVT - SCD/heparin subcutaneous Dispo: Discussed with and AIR EXPORT OPERATIONS AGENT at bedside. Critical Care: Level 3 Physician Griselda Waite MD Nov 13, 2016 18:41
[2016-11-13] MEDS ORDERED: fentaNYL DRIP 250 ML IV SCH (20:30)
[2016-11-14] VITALS (19 sets, daily range): BP systolic 119–137; BP diastolic 56–60; PULSE 69–79; RESP 14–19; TEMP 97.6–99.3; O2SAT 91–98
[2016-11-14] MEDS: HEPARIN SODIUM - SQ 10,000 UNITS/ML VIAL SQ SCH ×2 (02:42→16:13)
[2016-11-14] MEDS: CEFEPIME INJ 2,000 MG in SODIUM CHLORIDE 0.9% INJ 100 ML IV SCH ×2 (02:42→17:15)
[2016-11-14] MEDS: CHLORHEXIDINE GLUCONATE 2 % 1 PACK (2 CLOTHS) TOP SCH ×2 (02:42)
[2016-11-14 04:54] LABS: HEMATOCRIT 27.5 % (39.0-51.0); MEAN CELL VOLUME 96.5 FL (80.0-100.0); MEAN CORPUSCULAR HEMOGLOBIN 31.6 PG (27.0-34.0); MEAN CORPUSCULAR HGB CONC 32.7 % (32.0-36.0); PLATELET COUNT 343 TH/MM3 (150-450); RED BLOOD COUNT 2.85 MIL/MM3 (4.50-5.90); RED CELL DISTRIBUTION WIDTH 15.6 % (11.6-17.2); REVIEW FLAG FINAL
[2016-11-14 05:04] LABS: APTT (PATIENT) 29.8 SEC (24.3-30.1); INTERNATIONAL NORMALIZED RATIO 1.3 RATIO; PROTHROMBIN TIME - PATIENT 14.9 SEC (9.8-11.6)
--- NOTE | 2016-11-14 05:16 | RADRPT ---
EXAM DATE/TIME: 11/14/2016 04:34 [place] COMPARISON: CHEST SINGLE AP, November 12, 2016, 2:58. INDICATIONS : Shortness of breath, possible pulmonary disease. MEDICAL HISTORY : Hypertension. Diabetes mellitus type II. Chronic obstructive pulmonary disease. SURGICAL HISTORY : Appendectomy. Prostatectomy. Carotid endarterectomy. ENCOUNTER: Subsequent ACUITY: 1 week PAIN SCORE: Non-responsive. LOCATION: Bilateral chest FINDINGS: A single view of the chest demonstrates persistent, extensive right-sided airspace disease and probab le associated effusion with stable left basilar consolidation/effusion. Heart size is borderline. Deg enerative spurring of the dorsal spine. Nasogastric tube is been advanced further into the stomach. E ndotracheal tube remains in appropriate position above the veda with a left subclavian central veno us catheter unchanged in position. CONCLUSION: 1. Stable bilateral infiltrates/effusions, right greater than left. 2. Stable position of life support tubes. Kolby Mercedes MD on November 14, 2016 at 5:13 Board Certified Radiologist. This report was verified electronically.
[2016-11-14 05:22] LABS: BICARBONATE 27.3 MEQ/L (21.0-32.0); MAGNESIUM 1.9 MG/DL (1.5-2.5); POTASSIUM 3.7 MEQ/L (3.5-5.1)
[2016-11-14 05:34] LABS: CALCIUM-PROTEIN CORRECTED 8.5 MG/DL (8.5-10.1)
[2016-11-14] MEDS: METOCLOPRAMIDE HCL 10 MG/2 ML VIAL IV PUSH SCH ×3 (05:52→20:57)
[2016-11-14] MEDS: FREE WATER G-TUBE SCH ×3 (05:52→17:15)
[2016-11-14] MEDS: INSULIN NovoLIN REGULAR SUPPLEMENTAL SCALE SQ SCH ×3 (05:52→17:18)
[2016-11-14] MEDS ORDERED: MAGNESIUM OXIDE 400 MG TAB PO PRN (07:45)
[2016-11-14] MEDS ORDERED: POTASSIUM PHOSPHATE INJ 30 MMOL in SODIUM CHLOR 0.9% 250 ML INJ 250 ML IV PRN (07:45)
[2016-11-14] MEDS ORDERED: POTASSIUM CHLOR 40 MEQ PREMIX 100 ML IV PRN ×2 (07:45)
[2016-11-14] MEDS ORDERED: POTASSIUM PHOSPHATE MONOBASIC 500 MG TAB PO PRN (07:45)
[2016-11-14] MEDS ORDERED: POTASSIUM CHLOR 20 MEQ PREMIX 100 ML IV PRN ×2 (07:45)
[2016-11-14] MEDS ORDERED: MAGNESIUM SULFATE INJ 2 GM in SODIUM CHLORIDE 0.9% INJ 96 ML IV PRN (07:45)
[2016-11-14] MEDS ORDERED: POTASSIUM PHOSPHATE MONOBASIC 500 MG TAB PO/TUBE PRN (07:45)
[2016-11-14] MEDS ORDERED: POTASSIUM CL 40 MEQ/30 ML LIQ UDC PO/TUBE PRN ×2 (07:45)
[2016-11-14] MEDS ORDERED: MAGNESIUM SULFATE INJ 4 GM in SODIUM CHLORIDE 0.9% INJ 92 ML IV PRN (07:45)
[2016-11-14] MEDS: SODIUM CHLORIDE 0.9% FLUSH 5 ML FLUSH IV FLUSH SCH ×2 (08:58→20:57)
[2016-11-14] MEDS: VANCOMYCIN 500 MG VIAL (FOR ORAL USE ONLY) PO SCH ×4 (08:58→20:57)
[2016-11-14] MEDS: DILTIAZEM HCL 60 MG TAB PO SCH ×4 (08:59→20:57)
[2016-11-14] MEDS: SERTRALINE HCL 50 MG TAB PO SCH (08:59)
[2016-11-14] MEDS: ARTIFICIAL TEARS OPTH SOLN 15 ML BTL EACH EYE SCH ×3 (09:00→17:17)
[2016-11-14] MEDS: BENEPROTEIN POWDER 1 PACK G-TUBE SCH ×3 (09:00→17:15)
[2016-11-14] MEDS: PANTOPRAZOLE SODIUM 40 MG VIAL IV SCH (09:00)
[2016-11-14] MEDS: metroNIDAZOLE 500 MG INJ 100 ML IV SCH ×2 (09:01→16:31)
[2016-11-14] MEDS: SODIUM CHLORIDE 0.9% FLUSH 5 ML FLUSH IVF SCH (09:01)
[2016-11-14] MEDS: CHLORHEXIDINE 0.12% (ORAL KIT) 15 ML CUP MT SCH ×2 (09:01→20:00)
[2016-11-14] MEDS: SODIUM PHOSPHATE INJ 30 MMOL in SODIUM CHLOR 0.9% 250 ML INJ 240 ML IV PRN (11:30)
--- NOTE | 2016-11-14 12:15 | PD.CONS ---
HPI History of Present Illness This is a 86 year old male with Past medical history of hypertension , COPD, right subdural hematoma status post lucien hole, Alzheimer dementia, chronic kidney disease stage III, BPH, depression, chronic benzodiazepine use and diabetes who presented to [place] ED for evaluation of decline in function , generalized illness, diarrhea, and shortness of breath and is being treated for C-diff and health care associated pneumonia . He was subsequently intubated , was extubated on 11/11 and failed to tolerate so he was reintubated. He was found to have C-diff, was started on abx, repeat stools negative for C-diff. GI have been consulted for PEG tube placement. Currently, patient is intubated, tolerating TF okay through OGT. There is a plan for trach tomorrow. PFSH Past Medical History Per EMR HTN BPH Alzheimer's dementia Atrial Fibrillation Depression Subdural hemorrhage COPD Past Surgical History Per EMR Left knee arthroscopic surgery Appendectomy TURP on March 2015 Right Carotid Endarterectomy Coded Allergies: Ativan (Unverified Allergy, Severe, 11/01/16) Bactrim (Verified Allergy, Severe, hives, 11/01/16) Levaquin (Verified Allergy, Severe, 11/01/16) Morphine (Unverified Allergy, Severe, 11/01/16) Penicillin (Unverified Allergy, Severe, 11/01/16) Tuna (Unverified Allergy, Severe, 11/01/16) Hydrocortisone (Verified Allergy, Unknown, UNKNOWN, 11/01/16) Saccharin (Verified Allergy, Unknown, UNKNOWN , 11/01/16) Medications Current Medications Medications (Trade) Dose Ordered Sig/Jaime Route Start Time Stop Time Status Last Admin (NS Flush) 2 ml UNSCH PRN IV FLUSH 11/01/16 13:45 (NS Flush) 2 ml BID IV FLUSH 11/01/16 21:00 11/14/16 08:58 (Tylenol) 650 mg Q6H PRN PO 11/01/16 13:45 11/09/16 21:28 (Protonix Inj) 40 mg DAILY IV 11/02/16 09:00 11/14/16 09:00 (Tears Naturale Opth Soln) 1 drop TID EACH EYE 11/01/16 18:00 11/11/16 08:01 (Zofran Inj) 4 mg Q6H PRN IV 11/01/16 13:45 (Senna Liq) 17.6 mg Q12H PRN G-TUBE 11/01/16 13:45 (Heparin Inj) 5,000 units Q12H SQ 11/01/16 16:00 11/14/16 02:42 Miscellaneous Information 1 Q361D XX 11/01/16 13:45 (Chlorhexidine 2% Cloth) Taper DAILY@04 TOP 11/02/16 04:00 10/29/17 03:59 11/14/16 02:42 (Peridex 0.12% Liq) 15 ml BID@08,20 MT 11/01/16 20:00 11/14/16 09:01 (Free Water) 250 ml Q6HR G-TUBE 11/01/16 18:00 11/14/16 11:30 Sertraline HCl 25 mg 25 mg DAILY PO 11/02/16 09:00 11/14/16 08:59 (Flagyl 500 Mg Inj) 100 ml @ 100 mls/hr Q8H IV 11/01/16 16:00 11/14/16 09:01 Miscellaneous Information 1 Q361D XX 11/01/16 14:00 (Chlorhexidine 2% Cloth) Taper DAILY@04 TOP 11/02/16 04:00 10/29/17 03:59 11/11/16 01:23 (Beneprotein Powder) 1 pack TID G-TUBE 11/02/16 18:00 11/14/16 09:00 (NS Flush) DAILY IVF 11/03/16 13:15 11/14/16 09:01 (NS Flush) UNSCH PRN IVF 11/03/16 13:15 (Reglan Inj) 5 mg Q8H IV PUSH 11/05/16 14:00 11/14/16 05:52 (D50w (Vial) Inj) 25 ml UNSCH PRN IV PUSH 11/05/16 10:00 (Glucagon Inj) 1 mg UNSCH PRN OTHER 11/05/16 10:00 (NovoLIN R SUPPLEMENTAL SCALE) 1 Q6HR SQ 11/05/16 12:00 11/11/16 05:20 (VANCOMYCIN for oral use only) 500 mg QID PO 11/05/16 21:00 11/14/16 08:58 (Xanax) 0.25 mg Q12H PRN PO 11/08/16 15:15 Hold 11/09/16 21:00 (Hycet 325-7.5 Mg Liq) 10 ml Q6H PRN PO 11/09/16 23:15 11/10/16 00:09 (Lopressor Inj) 2.5 mg Q6H PRN IV PUSH 11/11/16 04:45 11/11/16 20:44 Terbutaline Sulfate 1 mg 1 mg UNSCH PRN SQ 11/12/16 03:15 Cefepime HCl 2000 mg/Sodium Chloride 100 ml @ 200 mls/hr Q12H IV 11/12/16 16:00 11/14/16 02:42 Pharmacy Profile Note 0 ml @ 0 mls/hr UNSCH IV 11/12/16 15:15 (Vancomycin Inj/ NS 500 ml Inj) 515 ml @ 257.5 mls/ hr Q24H IV 11/12/16 17:00 11/13/16 18:27 Miscellaneous Information SPECIFIC LAB TO BE DRAWN:VANCOMYCIN TROUGH DATE TO... ONCE ONCE XX 11/16/16 16:45 11/16/16 16:46 Diltiazem HCl 60 mg 60 mg QID PO 11/12/16 18:00 11/14/16 08:59 Fentanyl Citrate 250 ml @ 0 mls/hr TITRATE IV 11/13/16 20:30 Potassium Chloride 100 ml @ 50 mls/hr Q2H PRN IV 11/14/16 07:45 (KCl 20 Meq Premix Inj) 100 ml @ 50 mls/hr Q2H PRN IV 11/14/16 07:45 Potassium Chloride 40 meq 40 meq UNSCH PRN PO/TUBE 11/14/16 07:45 Potassium Chloride 100 ml @ 25 mls/hr UNSCH PRN IV 11/14/16 07:45 Potassium Chloride 100 ml @ 50 mls/hr Q2H PRN IV 11/14/16 07:45 (Magnesium Sulfate Inj/NS Inj) 100 ml @ 50 mls/hr UNSCH PRN IV 11/14/16 07:45 Magnesium Oxide 800 mg 800 mg UNSCH PRN PO 11/14/16 07:45 (Magnesium Sulfate Inj/NS Inj) 100 ml @ 50 mls/hr UNSCH PRN IV 11/14/16 07:45 Potassium Phosphate 2000 mg 2,000 mg Q4H PRN PO 11/14/16 07:45 (Sodium Phosphate Inj/NS 250 ml Inj) 250 ml @ 42 mls/hr UNSCH PRN IV 11/14/16 07:45 11/14/16 11:30 (KCl 40 Meq/30 ml Liq) 40 meq UNSCH PRN PO/TUBE 11/14/16 07:45 Potassium Phosphate 2000 mg 2,000 mg UNSCH PRN PO/TUBE 11/14/16 07:45 (Potassium Phosphate Inj/NS 250 ml Inj) 260 ml @ 42 mls/hr UNSCH PRN IV 11/14/16 07:45 Family History Non contributory Social History Not able to obtain Review of Systems ROS Patient is intubated GI Exam Vitals I&O Vital Signs Date Time Temp Pulse Resp B/P Pulse Ox O2 Delivery O2 Flow Rate FiO2 11/14/16 11:18 98 45 11/14/16 08:00 75 11/14/16 08:00 99.3 75 15 129/58 96 11/14/16 07:46 97 45 11/14/16 06:00 75 11/14/16 04:25 93 45 11/14/16 04:00 78 11/14/16 04:00 45 11/14/16 04:00 98.4 78 14 123/56 93 11/14/16 02:00 74 11/14/16 01:04 94 45 11/14/16 00:00 45 11/14/16 00:00 97.6 72 19 119/57 94 11/14/16 00:00 72 11/13/16 22:16 99 45 11/13/16 22:00 67 11/13/16 20:25 92 55 11/13/16 20:00 55 11/13/16 20:00 68 11/13/16 20:00 98.9 68 16 111/55 94 11/13/16 18:00 73 11/13/16 16:00 73 11/13/16 16:00 55 11/13/16 16:00 97.8 74 19 118/74 98 11/13/16 14:40 95 55 11/13/16 14:00 97.8 65 17 108/63 98 11/13/16 14:00 73 11/13/16 12:41 96 55 11/13/16 12:00 73 11/13/16 12:00 55 I/O 11/13/16 11/13/16 11/13/16 11/14/16 11/14/16 11/14/16 06:59 14:59 22:59 06:59 14:59 22:59 Intake Total 619 ml 984 ml 593 ml 938 ml Output Total 300 ml 550 ml 275 ml 450 ml Balance 319 ml 434 ml 318 ml 488 ml Intake Oral 0 ml 0 ml 0 ml IV Total 474 ml 472 ml 374 ml 691 ml Tube Feeding 145 ml 312 ml 219 ml 247 ml Other 200 ml Output Urine Total 275 ml 450 ml 275 ml 450 ml Stool Total 25 ml 100 ml 0 ml 0 ml Imaging Last Impressions Chest X-Ray 11/14/16 0600 Signed Impressions: Service Date/Time: Monday, November 14, 2016 04:34 - CONCLUSION: 1. Stable bilateral infiltrates/effusions, right greater than left. 2. Stable position of life support tubes. Kolby Mercedes MD Gall Bladder Ultrasound 11/09/16 0000 Signed Impressions: Service Date/Time: Wednesday, November 09, 2016 14:36 - CONCLUSION: 1. Negative examination. Joshua Irby MD Head CT 11/06/16 0000 Signed Impressions: Service Date/Time: Sunday, November 06, 2016 22:00 - CONCLUSION: 1. Cerebral atrophy and chronic ischemic small vessel vasculopathy. 2. Remote bilateral basal ganglia lacunar infarcts. Chao Hensley MD Abdomen X-Ray 11/06/16 0000 Signed Impressions: Service Date/Time: Sunday, November 06, 2016 07:43 - CONCLUSION: Benign-appearing abdomen. Arvind Márquez MD Brain MRI 11/03/16 0000 Signed Impressions: Service Date/Time: October 18:28 - CONCLUSION: Stable chronic changes as described above. No acute intracranial process. Antolin Pulido MD Renal Ultrasound 11/01/16 0000 Signed Impressions: Service Date/Time: Tuesday, November 01, 2016 16:47 - CONCLUSION: 1. Kidneys are slightly echogenic which can be seen with medical renal disease. 2. Urinary bladder decompressed by Masters catheter. Chao Hensley MD Abdomen/Pelvis CT 11/01/16 0000 Signed Impressions: Service Date/Time: Tuesday, November 01, 2016 15:12 - CONCLUSION: 1. No acute finding is identified within the abdomen or pelvis. There is a segment of mildly dilated mid jejunum in the left abdomen but otherwise there are no findings present to suggest bowel obstruction. 2. Severe atherosclerotic disease. 3. Airspace consolidation in both lower lobes, left greater than right. Arvind Kyle MD Laboratory Test 11/14/16 11/14/16 03:10 09:56 White Blood Count 12.0 TH/MM3 Red Blood Count 2.85 MIL/MM3 Hemoglobin 9.0 GM/DL Hematocrit 27.5 % Mean Corpuscular Volume 96.5 FL Mean Corpuscular Hemoglobin 31.6 PG Mean Corpuscular Hemoglobin 32.7 % Concent Red Cell Distribution Width 15.6 % Platelet Count 343 TH/MM3 Mean Platelet Volume 8.8 FL Prothrombin Time 14.9 SEC Prothromb Time International 1.3 RATIO Ratio Activated Partial 29.8 SEC Thromboplast Time Sodium Level 144 MEQ/L Potassium Level 3.7 MEQ/L Chloride Level 110 MEQ/L Carbon Dioxide Level 27.3 MEQ/L Anion Gap 7 MEQ/L Blood Urea Nitrogen 24 MG/DL Creatinine 1.17 MG/DL Estimat Glomerular Filtration 59 ML/MIN Rate Random Glucose 103 MG/DL Calcium Level 7.4 MG/DL Protein Corrected Calcium 8.5 MG/DL Phosphorus Level 2.1 MG/DL 2.0 MG/DL Magnesium Level 1.9 MG/DL Total Protein 5.2 GM/DL Date/Time Procedure Status Source Growth 11/12/16 16:25 Gram Stain - Final Complete Sputum Endotracheal 11/12/16 16:25 Sputum Culture - Final Complete Sputum Endotracheal MODERATE GROWTH NORMAL RESPIRATORY RAMIRO Physical Examination HEENT: normocephalic; atraumatic; no jaundice. NECK: Neck is supple, no JVD, no lymphadenopathy. CHEST: expiratory wheeze. Breath sounds equal bilaterally. CARDIAC: Regular rate and rhythm with no murmur gallop or rubs. ABDOMEN: Soft, nondistended, obese, nontender; bowel sounds are present in all four quadrants. EXTREMITIES: Gen. edema. OIL EXTRACTOR: alert on a vent Assessment and Plan Plan - Dysphagia/ENT- Patient failed extubation measures, in need for continuous churn buttermaker feeding Spoke to , explained risk, benefits and alternative and would like to proceed - C-diff- on Flagyl and vanco, ID on the case, repeat stools negative - Respiratory failure- failed extubation and was reintubated there is a plan for trach tomorrow - Healthcare associated pneumonia, ID on the case, abx Plan: - EGD/PEG tube in am - Obtain consents - NPO mn - He is already on abx - Hold heparin after mn - Cont. abx per ID - supportive care - Patient seen and examined by Dr. Rain and myself and this note is written on his behalf. Anabell Mayen Nov 14, 2016 12:15
--- NOTE | 2016-11-14 12:44 | HHI.CCPN ---
Subjective Remarks/Hospital Course 86-year-old male. Full code. Resident of [facility]. Date of admission 11/01/2016. Past medical history includes hypertension , COPD, right subdural hematoma status post lucien hole, Alzheimer dementia, chronic kidney disease stage III, BPH, depression, chronic benzodiazepine use and diabetes. Patient presented to [facility] with several day history of decline in function including generalized illness clean diarrhea, shortness of breath. Recently the patient was diagnosed coronary artery pneumonia and started on an antibiotic. Today, the patient presents lethargic/no unresponsive. Initially seen on 6 L nasal cannula. Laboratories revealed sodium 174. Creatinine is 4.1. White blood cell count 24,000. Chest x-ray revealed possible pneumonia source. UA is currently pending. Patient was emergently intubated using 20 mg etomidate 100 mg succinylcholine due to altered mental status/airway protection 11/02: Afebrile. Adequate urine output. Currently on sedation vacation on CPAP trial. C. difficile positive noted. 11/03: Tmax 99.9. Currently afebrile. Positive BM. Tolerating tube feeding. Squeezes hand to command on sedation vacation but became more agitated and back in A. fib. EEG revealed swelling but no epileptic activity. MRI brain pending. 11/04: Noted that a wide-complex tachycardia overnight. Currently on amiodarone drip. Noted potassium 2.6, calcium low magnesium level. This all been replaced. Currently afebrile. Positive BM. Opens eyes and will squeeze hands occasionally bilateral x-rays. MRI brain revealed no acute intracranial findings. 11/05: Tmax 101.. Currently 99.3. High tube feed residuals currently at 600. 300 return. Recheck in one hour. Positive BM. Opens eyes to command and intermittently follows commands by squeezing hands. Currently on a fentanyl drip wean off. Subjective 11/06: Maximum 100.4. Currently afebrile. Resting comfortably in bed off fentanyl drip. Noted A. fib with RVR overnight on amiodarone drip. This will be discontinued. Placed on low-dose beta dwain in the interim. Positive BM. Not tolerating tube feeding. KUB pending. 11/07: Afebrile. The patient was extubated yesterday and reintubated overnight .The patient tolerating tube feeds for the last 24 hours, however noted elevated alkaline phosphatase. 11/08: Patient remains on CPAP, tolerated 9 hours last evening. Plan for continue CPAP trials throughout the night tonight. All sedation has been discontinued. Home medications Xanax 0.25 when necessary for anxiety. WBC count trending down. 11/09: Afebrile. The patient tolerated CPAP for approximately 20 hours last night. All continuous IV sedation discontinued. Plan today for SBT trial and possible extubation. The patient's alcohol alkaline phosphatase is noted to be trending upward, will obtain gallbladder ultrasound. 11/10: Tmax 100.1. The patient continues to be lethargic main on CPAP since 6 AM this morning. SBT trial parameters, NIF -17,TV 500, RSBI 54, the patient does not follow commands secondary to lethargy. All sedatives have been discontinued including Xanax which is on hold. We'll continue to monitor, attempt a trial of extubation today. Gallbladder ultrasound obtained within increasing alkaline phosphatase, results negative. 11/11 The patient was too lethargic yesterday to perform a trial of extubation. Today the patient is more alert and more responsive still not following commands. SBT trial performed again today though patient was noncompliant.RSBI 42 RR 24 NIF -22 TV 500, positive cuff leak. Performed a trial of extubation this morning. 11/12: Patient was extubated yesterday afternoon, and placed on Ventimask at 50%. The patient was weaned to face mask during the evening. Early this a.m. around 3 AM, the patient was noted to have an extremely weak cough, inability to accept expectorate, required frequent in NT suctioning, secondary to inability to clear secretions. The patient was noted to be tachypnea rate 30s to 40s, O2 O2 saturation being greater than 95%. During that time the patient was also noted to be in A. fib RVR with a heart rate 150 's requiring initiation of Cardizem infusion .The patient was reintubated secondary to inability to clear secretions and protect airway. Mrs. Curry was notified of the events, will discuss with her today plan for tracheostomy. The patient was placed on this a.m., a low-dose fentanyl infusion and Cardizem infusion continues at 10 mg an hour will continue to wean. The patient continues on free water flushes with sodium level 144. 11/13: Afebrile. No acute events overnight. Plan for tracheostomy and PEG placement this week. The patient continues on low dose fentanyl infusion.Cardizem PO was intiated yesterday, and Cardizem infusion was weaned off last night. 11/14 remained stable overnight tracheostomy planned tomorrow at 10 AM Objective Vital Signs Date Time Temp Pulse Resp B/P Pulse Ox O2 Delivery O2 Flow Rate FiO2 11/14/16 12:00 98.4 75 15 137/60 96 11/14/16 11:18 45 11/11/16 20:21 Venturi Mask 6.00 Intake and Output 11/13/16 11/13/16 11/14/16 08:00 16:00 00:00 Intake Total 619 ml 984 ml 593 ml Output Total 300 ml 550 ml 275 ml Balance 319 ml 434 ml 318 ml Result Diagram: 11/14/16 0310 11/14/16 0310 Other Results Microbiology Date/Time Procedure Status Source Growth 11/12/16 16:25 Gram Stain - Final Complete Sputum Endotracheal 11/12/16 16:25 Sputum Culture - Final Complete Sputum Endotracheal MODERATE GROWTH NORMAL RESPIRATORY RAMIRO Imaging Last Impressions Chest X-Ray 11/05/16 0000 Signed Impressions: Service Date/Time: Saturday, November 05, 2016 09:21 - CONCLUSION: Increase in left lower lung atelectasis versus consolidation and increase in small left pleural effusion. Sarthak Clark MD Brain MRI 11/03/16 0000 Signed Impressions: Service Date/Time: October 18:28 - CONCLUSION: Stable chronic changes as described above. No acute intracranial process. Antolin Pulido MD Head CT 11/01/16 1139 Signed Impressions: Service Date/Time: Tuesday, November 01, 2016 15:09 - CONCLUSION: 1. Cerebral atrophy and chronic ischemic small vessel vasculopathy. 2. Remote bilateral lacunar infarcts. Chao Hensley MD Renal Ultrasound 11/01/16 0000 Signed Impressions: Service Date/Time: Tuesday, November 01, 2016 16:47 - CONCLUSION: 1. Kidneys are slightly echogenic which can be seen with medical renal disease. 2. Urinary bladder decompressed by Masters catheter. Chao Hensley MD Abdomen/Pelvis CT 11/01/16 0000 Signed Impressions: Service Date/Time: Tuesday, November 01, 2016 15:12 - CONCLUSION: 1. No acute finding is identified within the abdomen or pelvis. There is a segment of mildly dilated mid jejunum in the left abdomen but otherwise there are no findings present to suggest bowel obstruction. 2. Severe atherosclerotic disease. 3. Airspace consolidation in both lower lobes, left greater than right. Arvind Kyle MD Objective Remarks GENERAL: 86-year-old male, intubated and sedated SKIN: Warm and dry.abrasions on knees bilaterally and sacral decubitus ulcer/ regimen stage I, peripheral edema HEAD: Atraumatic. Normocephalic. EYES: Left pupil is 2 mm and irregular. Right pupil is pinpoint in reactive to light. No scleral icterus. No injection or drainage. ENT: No nasal bleeding or discharge. Mucous membranes pink and moist. NECK: Trachea midline. No JVD. CARDIOVASCULAR: Regular rate and rhythm. S1, S2. No S4. Without murmur RESPIRATORY: Noted expiratory wheeze. Breath sounds equal bilaterally. GASTROINTESTINAL: Abdomen soft, non-tender, nondistended. Hepatic and splenic margins not palpable. MUSCULOSKELETAL: Extremities peripheral edema, resolving. No obvious deformities. NEUROLOGICAL: Intubated.RASS -2. Sedated Date of Insertion: Nov 03, 2016 Line: Central Venous Catheter Side: Left Location: Internal, Jugular A/P Assessment and Plan Neuro/Psych: Acute toxic metabolic encephalopathy Alzheimer's dementia Depression History of right subdural hematoma status post bur hole Chronic benzodiazepine use Chronic narcotic use History of insomnia Lethargy Xanax held CT head 11/02 revealed bilateral lacunar basal ganglia infarct/old with ventriculomegaly 11/03 - MRI brain revealed no acute intracranial findings EEG shows no signs of seizure activity Continue sertraline 25 mg by mouth daily for depression Holding melatonin 3 mg at night for insomnia Patient sedated and intubated Fentanyl infusion low-dose initiated for sedation, Goal RASS -2 CV: History of right CVA Hypertension Atrial fibrillation with RVR-resolved Lactic acidosis - resolved Elevated troponin likely demand ischemia Initially EKG reveals sinus tachycardia with diffuse ST T changes throughout multiple leads likely related to dehydration/demand ischemia Cycle troponins. Peaked at 1.16. trending downward Echo revealed EF 55-60%. Will require nuclear stress test prior to discharge Holding home medications lisinopril 10 mg daily in light of hypotension/acute kidney injury Discontinued amiodarone drip or 11/06. Potassium phosphate repletion 11/11 30 mmols potassium 3.4, phosphorus 2.0 11/09-EKG-sinus rhythm Cardizem 60mg QID started 11/12, infusion dc'd Metoprolol PRN Resp: Acute hypoxemic respiratory failure Mechanical ventilation/16/500/50%/5 Ventilator bundle Bronchodilator therapy every 6 hours and as needed, and every 2 hours when necessary 11/09 Chest [id number] improvement Continue CPAP trials as long as tolerated by patient Trial of extubation performed (11/11), third reintubation(11/12) Schedule for tracheostomy this week- consent obtained. requests Mon, , , or Mon Scheduled for tomorrow [address] Camejo GI: Diarrhea/C. difficile positive Reinitiate Tube feeds Nepro will rate 50 cc/hour Add prokinetic agent Reglan 5mg every 8hrs Protonix for GI prophylaxis. Protonix [address] daily at home CT abdomen/pelvis revealed no obstruction or possible some mild dilatation the mid jejunum. Atherosclerotic vascular disease KUB 11/07 nonspecific Gallbladder ultrasound-negative 11/11 C. difficile antigen negative GI consulted for PEG placement this week : History of BPH status post TURP Maintain Masters Strict I's and O's Endo: Diabetes mellitus type 2 Hyperglycemia of Sliding-scale insulin Glucose monitoring per ICU protocol Renal: Acute on chronic kidney injury-resolved Rhabdomyolysis-resolved 0.45 NS @75cc/hr discontinued 11/11 Avoid nephrotoxic drugs Renal ultrasound no hydronephrosis. Possibly early medical renal disease. Negative urine eosinophils Creatinine kinase 260 within normal limits Sodium within normal [id number], will continue free water flushes for now Creatinine improvoing Good urine output Heme: Leukocytosis Normocytic anemia Daily CBC/CMP. Monitor trends ID: Likely healthcare associated pneumonia -Klebsiella and staph aureus C. difficile positive Received vancomycin ED. Aztreonam and Flagyl. Day #6 discontinued 11/05 IV Flagyl/by mouth vancomycin for C. difficile day #[address] Pepe following Rocephin day 8 11/01 - Blood cultures 2 no growth, urine no growth, sputum revealed Klebsiella /staph aureus, influenza negative, urine Legionella and pneumococcal antigens negative ID consult for antibiotic management Dr. Pepe 10/15 -BAL- NGTD 11/11-C Diff antigen- negative FEN: Hypernatremia-resolved Hyperchloridemia-resolved Hypopotassemia Hypophosphatemia Continue Free water flushes 250 cc every 6 hours. Replete electrolytes per ICU protocol MSK: History of left total knee arthroplasty PT evaluate and treat- Functional Maintenance Sacral decubitus-wound care consulted follow-up recommendations Access -Left IJ CVL day 9 Prophylaxis - GI - Protonix - DVT - SCD/heparin subcutaneous Dispo: Discussed with and [employer] at bedside. Critical Care: Level 3 Emeterio Villatoro MD Nov 14, 2016 12:44
[2016-11-14] MEDS: COLLAGENASE OINT 30 GM TUBE TOP SCH (15:00)
[2016-11-14] MEDS: fentaNYL DRIP 250 ML IV SCH (17:13)
[2016-11-14] MEDS: VANCOMYCIN 1,500 MG/NS 500 ML IV SCH ×2 (17:51)
--- NOTE | 2016-11-14 19:45 | PD.CAR.PN ---
CVT Progress Note Subjective/Hospital Course: Patient with multiple medical problems and respiratory insufficiency For tracheostomy by Dr. Villatoro and myself tomorrow Thanks J Objective: Vital Signs Date Time Temp Pulse Resp B/P Pulse Ox O2 Delivery O2 Flow Rate FiO2 11/14/16 18:00 76 11/14/16 16:41 98 45 11/14/16 16:00 98.2 70 16 122/58 95 11/14/16 16:00 70 11/14/16 16:00 45 11/14/16 14:00 74 11/14/16 13:52 96 45 11/14/16 12:00 45 11/14/16 12:00 75 11/14/16 12:00 98.4 75 16 137/60 96 11/14/16 11:18 98 45 11/14/16 10:00 79 11/14/16 08:00 75 11/14/16 08:00 45 11/14/16 08:00 99.3 75 16 129/58 96 11/14/16 07:46 97 45 11/14/16 06:00 75 11/14/16 04:25 93 45 11/14/16 04:00 78 11/14/16 04:00 45 11/14/16 04:00 98.4 78 14 123/56 93 11/14/16 02:00 74 11/14/16 01:04 94 45 11/14/16 00:00 45 11/14/16 00:00 97.6 72 19 119/57 94 11/14/16 00:00 72 11/13/16 22:16 99 45 11/13/16 22:00 67 11/13/16 20:25 92 55 11/13/16 20:00 55 11/13/16 20:00 68 11/13/16 20:00 98.9 68 16 111/55 94 Labs: Laboratory Tests Test 11/14/16 09:56 Phosphorus Level 2.0 MG/DL (2.5-4.9) Result Diagram: 11/14/1630911/14/16309 Gilda Holder MD Nov 14, 2016 19:45
[2016-11-15] VITALS (22 sets, daily range): BP systolic 91–137; BP diastolic 56–74; PULSE 68–104; RESP 13–22; TEMP 98.3–99; O2SAT 93–98
[2016-11-15] MEDS: metroNIDAZOLE 500 MG INJ 100 ML IV SCH ×3 (01:29→16:00)
[2016-11-15] MEDS: CEFEPIME INJ 2,000 MG in SODIUM CHLORIDE 0.9% INJ 100 ML IV SCH ×2 (03:47→16:00)
[2016-11-15] MEDS: CHLORHEXIDINE GLUCONATE 2 % 1 PACK (2 CLOTHS) TOP SCH ×2 (03:47)
[2016-11-15 04:49] LABS: AUTOMATED NEUTROPHIL # 9.8 TH/MM3 (1.8-7.7); BASOPHIL % 0.3 % (0.0-2.0); EOSINOPHIL # 0.4 TH/MM3 (0-0.4); EOSINOPHIL % 3.4 % (0.0-4.0); HEMATOCRIT 27.8 % (39.0-51.0); HEMO FLAGS DIFF FINAL; LYMPH % 10.5 % (9.0-44.0); LYMPHOCYTE # 1.4 TH/MM3 (1.0-4.8); MEAN CELL VOLUME 96.7 FL (80.0-100.0); MEAN CORPUSCULAR HEMOGLOBIN 30.9 PG (27.0-34.0); MEAN CORPUSCULAR HGB CONC 31.9 % (32.0-36.0); MONO % 10.8 % (0.0-8.0); PLATELET COUNT 348 TH/MM3 (150-450); RED BLOOD COUNT 2.88 MIL/MM3 (4.50-5.90); RED CELL DISTRIBUTION WIDTH 16.1 % (11.6-17.2)
[2016-11-15] MEDS: FREE WATER G-TUBE SCH ×4 (05:14→18:00)
[2016-11-15] MEDS: METOCLOPRAMIDE HCL 10 MG/2 ML VIAL IV PUSH SCH ×3 (05:15→20:47)
[2016-11-15 05:22] LABS: BICARBONATE 26.2 MEQ/L (21.0-32.0); CALCIUM-PROTEIN CORRECTED 8.2 MG/DL (8.5-10.1); MAGNESIUM 1.8 MG/DL (1.5-2.5); POTASSIUM 3.4 MEQ/L (3.5-5.1); TOTAL BILIRUBIN ADULT 0.3 MG/DL (0.2-1.0)
[2016-11-15 05:26] LABS: BLOOD GAS BASE EXCESS -1.2 mmol/L (-2-2); BLOOD GAS CARBOXYHEMOGLOBIN 1.4 % (0-4); BLOOD GAS HCO3 23 mmol/L (22-26); BLOOD GAS METHEMOGLOBIN 1.1 % (0-2); BLOOD GAS O2 HGB SATURATION 92 % (90-100); BLOOD GAS OXYGEN CONTENT 12.2 Vol % (12.0-20.0); BLOOD GAS PCO2 35 mmHg (38-42); BLOOD GAS PO2 73 mmHg (61-120); BLOOD GAS TOTAL HGB 9.3 G/DL (12.0-16.0); TEMP CORR TO 98.6
[2016-11-15 05:27] LABS: CRITICAL VALUE NO; DRAW SITE RT RADIAL; FIO2 45 %; NUMBER OF ARTERIAL PUNCTURES 2; OXYGEN DEVICE VENTILATOR; STAT NO; ULNAR PULSE PRESENT; VENT SETTINGS AC/16/500/PEEP5
[2016-11-15] MEDS: INSULIN NovoLIN REGULAR SUPPLEMENTAL SCALE SQ SCH ×4 (05:57→18:00)
[2016-11-15] MEDS: SERTRALINE HCL 50 MG TAB PO SCH (09:00)
[2016-11-15] MEDS: SODIUM CHLORIDE 0.9% FLUSH 5 ML FLUSH IVF SCH (09:00)
[2016-11-15] MEDS: SODIUM CHLORIDE 0.9% FLUSH 5 ML FLUSH IV FLUSH SCH ×2 (09:00→20:46)
[2016-11-15] MEDS ORDERED: MIDAZOLAM HCL 5 MG/ML VIAL (1 ML) IV PUSH ONE (09:00)
[2016-11-15] MEDS: VANCOMYCIN 500 MG VIAL (FOR ORAL USE ONLY) PO SCH ×4 (09:00→20:47)
[2016-11-15] MEDS ORDERED: ROCURONIUM INJ 50 MG/5 ML VIAL IV ONE (09:00)
[2016-11-15] MEDS: ARTIFICIAL TEARS OPTH SOLN 15 ML BTL EACH EYE SCH ×3 (09:00→18:00)
[2016-11-15] MEDS: BENEPROTEIN POWDER 1 PACK G-TUBE SCH ×3 (09:00→18:00)
[2016-11-15] MEDS: COLLAGENASE OINT 30 GM TUBE TOP SCH (09:00)
[2016-11-15] MEDS: DILTIAZEM HCL 60 MG TAB PO SCH ×4 (09:00→20:47)
[2016-11-15] MEDS: PANTOPRAZOLE SODIUM 40 MG VIAL IV SCH (09:42)
[2016-11-15] MEDS: CHLORHEXIDINE 0.12% (ORAL KIT) 15 ML CUP MT SCH ×2 (09:44→20:46)
--- NOTE | 2016-11-15 12:34 | HHI.CCPN ---
Subjective Remarks/Hospital Course 86-year-old male. Full code. Resident of [facility]. Date of admission 11/01/2016. Past medical history includes hypertension , COPD, right subdural hematoma status post lucien hole, Alzheimer dementia, chronic kidney disease stage III, BPH, depression, chronic benzodiazepine use and diabetes. Patient presented to [place] ED with several day history of decline in function including generalized illness clean diarrhea, shortness of breath. Recently the patient was diagnosed coronary artery pneumonia and started on an antibiotic. Today, the patient presents lethargic/no unresponsive. Initially seen on 6 L nasal cannula. Laboratories revealed sodium 174. Creatinine is 4.1. White blood cell count 24,000. Chest x-ray revealed possible pneumonia source. UA is currently pending. Patient was emergently intubated using 20 mg etomidate 100 mg succinylcholine due to altered mental status/airway protection 11/02: Afebrile. Adequate urine output. Currently on sedation vacation on CPAP trial. C. difficile positive noted. 11/03: Tmax 99.9. Currently afebrile. Positive BM. Tolerating tube feeding. Squeezes hand to command on sedation vacation but became more agitated and back in A. fib. EEG revealed swelling but no epileptic activity. MRI brain pending. 11/04: Noted that a wide-complex tachycardia overnight. Currently on amiodarone drip. Noted potassium 2.6, calcium low magnesium level. This all been replaced. Currently afebrile. Positive BM. Opens eyes and will squeeze hands occasionally bilateral x-rays. MRI brain revealed no acute intracranial findings. 11/05: Tmax 101.. Currently 99.3. High tube feed residuals currently at 600. 300 return. Recheck in one hour. Positive BM. Opens eyes to command and intermittently follows commands by squeezing hands. Currently on a fentanyl drip wean off. Subjective 11/06: Maximum 100.4. Currently afebrile. Resting comfortably in bed off fentanyl drip. Noted A. fib with RVR overnight on amiodarone drip. This will be discontinued. Placed on low-dose beta dwain in the interim. Positive BM. Not tolerating tube feeding. KUB pending. 11/07: Afebrile. The patient was extubated yesterday and reintubated overnight .The patient tolerating tube feeds for the last 24 hours, however noted elevated alkaline phosphatase. 11/08: Patient remains on CPAP, tolerated 9 hours last evening. Plan for continue CPAP trials throughout the night tonight. All sedation has been discontinued. Home medications Xanax 0.25 when necessary for anxiety. WBC count trending down. 11/09: Afebrile. The patient tolerated CPAP for approximately 20 hours last night. All continuous IV sedation discontinued. Plan today for SBT trial and possible extubation. The patient's alcohol alkaline phosphatase is noted to be trending upward, will obtain gallbladder ultrasound. 11/10: Tmax 100.1. The patient continues to be lethargic main on CPAP since 6 AM this morning. SBT trial parameters, NIF -17,TV 500, RSBI 54, the patient does not follow commands secondary to lethargy. All sedatives have been discontinued including Xanax which is on hold. We'll continue to monitor, attempt a trial of extubation today. Gallbladder ultrasound obtained within increasing alkaline phosphatase, results negative. 11/11 The patient was too lethargic yesterday to perform a trial of extubation. Today the patient is more alert and more responsive still not following commands. SBT trial performed again today though patient was noncompliant.RSBI 42 RR 24 NIF -22 TV 500, positive cuff leak. Performed a trial of extubation this morning. 11/12: Patient was extubated yesterday afternoon, and placed on Ventimask at 50%. The patient was weaned to face mask during the evening. Early this a.m. around 3 AM, the patient was noted to have an extremely weak cough, inability to accept expectorate, required frequent in NT suctioning, secondary to inability to clear secretions. The patient was noted to be tachypnea rate 30s to 40s, O2 O2 saturation being greater than 95%. During that time the patient was also noted to be in A. fib RVR with a heart rate 150 's requiring initiation of Cardizem infusion .The patient was reintubated secondary to inability to clear secretions and protect airway. Mrs. Curry was notified of the events, will discuss with her today plan for tracheostomy. The patient was placed on this a.m., a low-dose fentanyl infusion and Cardizem infusion continues at 10 mg an hour will continue to wean. The patient continues on free water flushes with sodium level 144. 11/13: Afebrile. No acute events overnight. Plan for tracheostomy and PEG placement this week. The patient continues on low dose fentanyl infusion.Cardizem PO was intiated yesterday, and Cardizem infusion was weaned off last night. 11/14 remained stable overnight tracheostomy planned tomorrow at 10 AM Objective Vital Signs Date Time Temp Pulse Resp B/P Pulse Ox O2 Delivery O2 Flow Rate FiO2 11/15/16 11:46 97 45 11/15/16 06:00 68 11/15/16 04:00 99.0 22 91/56 11/11/16 20:21 Venturi Mask 6.00 Intake and Output 11/14/16 11/14/16 11/15/16 08:00 16:00 00:00 Intake Total 938 ml 648 ml 1309 ml Output Total 450 ml 1250 ml 750 ml Balance 488 ml -602 ml 559 ml Result Diagram: 11/15/16 0400 11/15/16 0400 Other Results Microbiology Date/Time Procedure Status Source Growth 11/12/16 16:25 Gram Stain - Final Complete Sputum Endotracheal 11/12/16 16:25 Sputum Culture - Final Complete Sputum Endotracheal MODERATE GROWTH NORMAL RESPIRATORY RAMIRO Laboratory Tests Test 11/15/16 05:14 Blood Gas Puncture Site RT RADIAL Blood Gas Patient Temperature 98.6 Blood Gas HCO3 23 mmol/L (22-26) Blood Gas Base Excess -1.2 mmol/L (-2-2) Blood Gas Oxygen Saturation 92 % (90-100) Arterial Blood pH 7.42 (7.380-7.420) Arterial Blood Partial 35 mmHg (38-42) Pressure CO2 Arterial Blood Partial 73 mmHg Pressure O2 (61-120) Arterial Blood Oxygen Content 12.2 Vol % (12.0-20.0) Arterial Blood 1.4 % (0-4) Carboxyhemoglobin Arterial Blood Methemoglobin 1.1 % (0-2) Blood Gas Hemoglobin 9.3 G/DL (12.0-16.0) Oxygen Delivery Device VENTILATOR Blood Gas Ventilator Setting AC/16/500/PEEP5 Blood Gas Inspired Oxygen 45 % Imaging Last Impressions Chest X-Ray 11/05/16 0000 Signed Impressions: Service Date/Time: Saturday, November 05, 2016 09:21 - CONCLUSION: Increase in left lower lung atelectasis versus consolidation and increase in small left pleural effusion. Sarthak Clark MD Brain MRI 2/23/17 0000 Signed Impressions: Service Date/Time: October 18:28 - CONCLUSION: Stable chronic changes as described above. No acute intracranial process. Antolin Pulido MD Head CT 11/01/16 1139 Signed Impressions: Service Date/Time: Tuesday, November 01, 2016 15:09 - CONCLUSION: 1. Cerebral atrophy and chronic ischemic small vessel vasculopathy. 2. Remote bilateral lacunar infarcts. Chao Hensley MD Renal Ultrasound 11/01/16 0000 Signed Impressions: Service Date/Time: Tuesday, November 01, 2016 16:47 - CONCLUSION: 1. Kidneys are slightly echogenic which can be seen with medical renal disease. 2. Urinary bladder decompressed by Masters catheter. Chao Hensley MD Abdomen/Pelvis CT 11/01/16 0000 Signed Impressions: Service Date/Time: Tuesday, November 01, 2016 15:12 - CONCLUSION: 1. No acute finding is identified within the abdomen or pelvis. There is a segment of mildly dilated mid jejunum in the left abdomen but otherwise there are no findings present to suggest bowel obstruction. 2. Severe atherosclerotic disease. 3. Airspace consolidation in both lower lobes, left greater than right. Arvind Kyle MD Objective Remarks GENERAL: 86-year-old male, intubated and sedated SKIN: Warm and dry.abrasions on knees bilaterally and sacral decubitus ulcer/ regimen stage I, peripheral edema HEAD: Atraumatic. Normocephalic. EYES: Left pupil is 2 mm and irregular. Right pupil is pinpoint in reactive to light. No scleral icterus. No injection or drainage. ENT: No nasal bleeding or discharge. Mucous membranes pink and moist. NECK: Trachea midline. No JVD. CARDIOVASCULAR: Regular rate and rhythm. S1, S2. No S4. Without murmur RESPIRATORY: Noted expiratory wheeze. Breath sounds equal bilaterally. GASTROINTESTINAL: Abdomen soft, non-tender, nondistended. Hepatic and splenic margins not palpable. MUSCULOSKELETAL: Extremities peripheral edema, resolving. No obvious deformities. NEUROLOGICAL: Intubated.RASS -2. Sedated Date of Insertion: Nov 03, 2016 Line: Central Venous Catheter Side: Left Location: Internal, Jugular A/P Assessment and Plan Neuro/Psych: Acute toxic metabolic encephalopathy Alzheimer's dementia Depression History of right subdural hematoma status post bur hole Chronic benzodiazepine use Chronic narcotic use History of insomnia Lethargy Xanax held CT head 11/02 revealed bilateral lacunar basal ganglia infarct/old with ventriculomegaly 11/03 - MRI brain revealed no acute intracranial findings EEG shows no signs of seizure activity Continue sertraline 25 mg by mouth daily for depression Holding melatonin 3 mg at night for insomnia Patient sedated and intubated Fentanyl infusion low-dose initiated for sedation, Goal RASS -2 CV: History of right CVA Hypertension Atrial fibrillation with RVR-resolved Lactic acidosis - resolved Elevated troponin likely demand ischemia Initially EKG reveals sinus tachycardia with diffuse ST T changes throughout multiple leads likely related to dehydration/demand ischemia Cycle troponins. Peaked at 1.16. trending downward Echo revealed EF 55-60%. Will require nuclear stress test prior to discharge Holding home medications lisinopril 10 mg daily in light of hypotension/acute kidney injury Discontinued amiodarone drip or 11/06. Metoprolol PRN Resp: Acute hypoxemic respiratory failure Mechanical ventilation/16/500/50%/5 Ventilator bundle Bronchodilator therapy every 6 hours and as needed, and every 2 hours when necessary 11/09 Chest [id number] improvement Hold CPAP trials until tracheostomy ion place Trial of extubation performed (11/11), third reintubation(11/12) Tracheostomy done today without complications GI: Diarrhea/C. difficile positive Reinitiate Tube feeds Nepro will rate 50 cc/hour Add prokinetic agent Reglan 5mg every 8hrs Protonix for GI prophylaxis. Protonix [address] daily at home CT abdomen/pelvis revealed no obstruction or possible some mild dilatation the mid jejunum. Atherosclerotic vascular disease KUB 11/07 nonspecific Gallbladder ultrasound-negative 11/11 C. difficile antigen negative GI consulted for PEG placement this week : History of BPH status post TURP Maintain Masters Strict I's and O's Endo: Diabetes mellitus type 2 Hyperglycemia of Sliding-scale insulin Glucose monitoring per ICU protocol Renal: Acute on chronic kidney injury-resolved Rhabdomyolysis-resolved 0.45 NS @75cc/hr discontinued 11/11 Avoid nephrotoxic drugs Renal ultrasound no hydronephrosis. Possibly early medical renal disease. Negative urine eosinophils Creatinine kinase 260 within normal limits Sodium within normal [id number], will continue free water flushes for now Creatinine improvoing Good urine output Heme: Leukocytosis Normocytic anemia Daily CBC/CMP. Monitor trends ID: Likely healthcare associated pneumonia -Klebsiella and staph aureus C. difficile positive Received vancomycin ED. Aztreonam and Flagyl. Day #6 discontinued 2 IV Flagyl/by mouth vancomycin for C. difficile day #[address] Pepe following Rocephin day 8 11/01 - Blood cultures 2 no growth, urine no growth, sputum revealed Klebsiella /staph aureus, influenza negative, urine Legionella and pneumococcal antigens negative ID consult for antibiotic management Dr. Pepe 10/15 -BAL- NGTD 11/11-C Diff antigen- negative FEN: Hypernatremia-resolved Hyperchloridemia-resolved Hypopotassemia Hypophosphatemia Continue Free water flushes 250 cc every 6 hours. Replete electrolytes per ICU protocol MSK: History of left total knee arthroplasty PT evaluate and treat- Functional Maintenance Sacral decubitus-wound care consulted follow-up recommendations Access -Left IJ CVL day 9 Prophylaxis - GI - Protonix - DVT - SCD/heparin subcutaneous Dispo: Discussed with and BUILDING SERVICEMAN at bedside. Critical Care: Level 3 Emeterio Villatoro MD Nov 15, 2016 12:34
[2016-11-15] MEDS: VANCOMYCIN 1,500 MG/NS 500 ML IV SCH ×2 (17:00)
--- NOTE | 2016-11-15 22:31 | HHI.IDPN ---
Subjective Subjective Remarks delayed entry; pt was seenearlier today sp trach on AC cont to have large amount of liquid stool small amount of secretions afebrile Antibiotics cefepime vanco iv vanco PO flagl IV Allergies: Coded Allergies: Ativan (Unverified Allergy, Severe, 11/01/16) Bactrim (Verified Allergy, Severe, hives, 11/01/16) Levaquin (Verified Allergy, Severe, 11/01/16) Morphine (Unverified Allergy, Severe, 11/01/16) Penicillin (Unverified Allergy, Severe, 11/01/16) Tuna (Unverified Allergy, Severe, 11/01/16) Hydrocortisone (Verified Allergy, Unknown, UNKNOWN, 11/01/16) Saccharin (Verified Allergy, Unknown, UNKNOWN , 11/01/16) Objective . Vital Signs Date Time Temp Pulse Resp B/P Pulse Ox O2 Delivery O2 Flow Rate FiO2 11/15/16 22:10 96 45 11/15/16 19:12 98 45 11/15/16 18:25 88 11/15/16 16:42 95 45 11/15/16 16:00 104 11/15/16 16:00 45 11/15/16 16:00 98.7 74 20 128/74 95 11/15/16 14:12 96 45 11/15/16 14:00 68 11/15/16 12:00 98.9 74 20 122/57 93 11/15/16 12:00 45 11/15/16 12:00 79 11/15/16 11:46 97 45 11/15/16 11:25 98 100 11/15/16 10:00 74 11/15/16 08:00 98.3 71 20 122/59 97 11/15/16 07:38 96 45 11/15/16 06:00 68 11/15/16 04:06 95 45 11/15/16 04:00 99.0 77 22 91/56 95 11/15/16 04:00 77 11/15/16 04:00 45 11/15/16 02:00 74 11/15/16 01:12 94 45 11/15/16 00:05 95 45 11/15/16 00:00 69 11/15/16 00:00 98.4 69 18 108/74 95 11/15/16 00:00 45 11/14/16 11/14/16 11/15/16 14:59 22:59 06:59 Intake Total 648 ml 1309 ml 253 ml Output Total 1250 ml 750 ml 150 ml Balance -602 ml 559 ml 103 ml Intake Oral 0 ml 0 ml 0 ml IV Total 327 ml 977 ml 253 ml Tube Feeding 71 ml 332 ml 0 ml Other 250 ml Output Urine Total 450 ml 600 ml 150 ml Stool Total 800 ml 150 ml 0 ml . Laboratory Tests Test 11/14/16 11/15/16 03:10 04:00 White Blood Count 12.0 TH/MM3 13.0 TH/MM3 Red Blood Count 2.85 MIL/MM3 2.88 MIL/MM3 Hemoglobin 9.0 GM/DL 8.9 GM/DL Hematocrit 27.5 % 27.8 % Mean Corpuscular Volume 96.5 FL 96.7 FL Mean Corpuscular Hemoglobin 31.6 PG 30.9 PG Mean Corpuscular Hemoglobin 32.7 % 31.9 % Concent Red Cell Distribution Width 15.6 % 16.1 % Platelet Count 343 TH/MM3 348 TH/MM3 Mean Platelet Volume 8.8 FL 8.8 FL Neutrophils (%) (Auto) 75.0 % Lymphocytes (%) (Auto) 10.5 % Monocytes (%) (Auto) 10.8 % Eosinophils (%) (Auto) 3.4 % Basophils (%) (Auto) 0.3 % Neutrophils # (Auto) 9.8 TH/MM3 Lymphocytes # (Auto) 1.4 TH/MM3 Monocytes # (Auto) 1.4 TH/MM3 Eosinophils # (Auto) 0.4 TH/MM3 Basophils # (Auto) 0.0 TH/MM3 CBC Comment DIFF FINAL Differential Comment Laboratory Tests Test 11/14/16 11/14/16 11/14/16 11/15/16 03:10 09:56 21:00 04:00 Sodium Level 144 MEQ/L 143 MEQ/L Potassium Level 3.7 MEQ/L 3.4 MEQ/L Chloride Level 110 MEQ/L 108 MEQ/L Carbon Dioxide Level 27.3 MEQ/L 26.2 MEQ/L Anion Gap 7 MEQ/L 9 MEQ/L Blood Urea Nitrogen 24 MG/DL 23 MG/DL Creatinine 1.17 MG/DL 1.16 MG/DL Estimat Glomerular Filtration 59 ML/MIN 59 ML/MIN Rate Random Glucose 103 MG/DL 105 MG/DL Calcium Level 7.4 MG/DL 7.2 MG/DL Protein Corrected Calcium 8.5 MG/DL 8.2 MG/DL Phosphorus Level 2.1 MG/DL 2.0 MG/DL 2.7 MG/DL 2.3 MG/DL Magnesium Level 1.9 MG/DL 1.8 MG/DL Total Protein 5.2 GM/DL 5.3 GM/DL Total Bilirubin 0.3 MG/DL Aspartate Amino Transf 43 U/L (AST/SGOT) Alanine Aminotransferase 27 U/L (ALT/SGPT) Alkaline Phosphatase 148 U/L Albumin 1.4 GM/DL Imaging Last Impressions Chest X-Ray 11/14/16 0600 Signed Impressions: Service Date/Time: Monday, November 14, 2016 04:34 - CONCLUSION: 1. Stable bilateral infiltrates/effusions, right greater than left. 2. Stable position of life support tubes. Kolby Mercedes MD Gall Bladder Ultrasound 11/09/16 0000 Signed Impressions: Service Date/Time: Wednesday, November 09, 2016 14:36 - CONCLUSION: 1. Negative examination. Joshua Irby MD Head CT 11/06/16 0000 Signed Impressions: Service Date/Time: Sunday, November 06, 2016 22:00 - CONCLUSION: 1. Cerebral atrophy and chronic ischemic small vessel vasculopathy. 2. Remote bilateral basal ganglia lacunar infarcts. Chao Hensley MD Abdomen X-Ray 11/06/16 0000 Signed Impressions: Service Date/Time: Sunday, November 06, 2016 07:43 - CONCLUSION: Benign-appearing abdomen. Arvind Márquez MD Brain MRI 11/03/16 0000 Signed Impressions: Service Date/Time: October 18:28 - CONCLUSION: Stable chronic changes as described above. No acute intracranial process. Antolin Pulido MD Renal Ultrasound 11/01/16 0000 Signed Impressions: Service Date/Time: Tuesday, November 01, 2016 16:47 - CONCLUSION: 1. Kidneys are slightly echogenic which can be seen with medical renal disease. 2. Urinary bladder decompressed by Masters catheter. Chao Hensley MD Abdomen/Pelvis CT 11/01/16 0000 Signed Impressions: Service Date/Time: Tuesday, November 01, 2016 15:12 - CONCLUSION: 1. No acute finding is identified within the abdomen or pelvis. There is a segment of mildly dilated mid jejunum in the left abdomen but otherwise there are no findings present to suggest bowel obstruction. 2. Severe atherosclerotic disease. 3. Airspace consolidation in both lower lobes, left greater than right. Arvind Kyle MD Physical Exam CONSTITUTIONAL/GENERAL: sedated, int'd TUBES/LINES/DRAINS: SKIN: No jaundice, rashes, or lesions. Skin temperature appropriate. Not diaphoretic. HEAD: Atraumatic. Normocephalic. EYES: Pupils equal and round and reactive. Extraocular motions intact. No scleral icterus. No injection or drainage. Fundi not examined. ENT: moist mucosae NECK: Trachea midline. Supple, nontender. No palpable thyroid enlargement or nodularity. CARDIOVASCULAR: Regular rate and rhythm 3/6 holosystolic murmur RUSB, no gallops, or rubs. No JVD. Peripheral pulses not palpable on bl feet RESPIRATORY/CHEST: + rhonchi b/l to auscultation GASTROINTESTINAL: Abdomen soft, non-tender ( no reaction to palpation), moderately distended. No hepato-splenomegaly, or palpable masses. No guarding. Bowel sounds diminished Incontinent of brown liquid stool in fecal collection system GENITOURINARY: Without palpable bladder distension. Masters catheter in place. MUSCULOSKELETAL: Extremities without clubbing, + 1-2 edema. No joint tenderness or effusion noted. No calf tenderness. No mottling or clubbing. no cyanosis, LYMPHATICS: No palpable cervical or supraclavicular adenopathy. NEUROLOGICAL:sedated Assessment & Plan Remarks ? New PNA - nl resp jeanine PNA, Klebsiella, MSSA - most recent BAL clx neg so far - WBC 14 mln in BAL -CXR with some clearing Acute VDRF, sp 2nd re-intubation Hypervirlent strain of C.diff - cont to have high volume liquid diarrhea Multiple abx allergies, including PCN, Levaquine, bactrim, sustantially limiting aailbale abx choice, though it appears from EMR that pt had CFTX and cefazoline uneventfully in 2014 MS change, not waking up despite off sedation Persistent leukocytosis - probably likely 2/2 C.diff - cont po vanco, IV flagyl for C.diff x 2 more weeks - dc cefepime,IV vanco - start CFTX for PNA to complete short (7 day ) course thru 11/18 - fu WBC dw RN Aletha Pepe MD Nov 15, 2016 22:31
[2016-11-16] VITALS (19 sets, daily range): BP systolic 138–150; BP diastolic 63–67; PULSE 71–92; RESP 13–16; TEMP 98.6–99.4; O2SAT 93–99
[2016-11-16] MEDS: metroNIDAZOLE 500 MG INJ 100 ML IV SCH ×3 (00:34→16:39)
[2016-11-16] MEDS: CHLORHEXIDINE GLUCONATE 2 % 1 PACK (2 CLOTHS) TOP SCH ×2 (00:35→02:55)
[2016-11-16 04:33] LABS: AUTOMATED NEUTROPHIL # 11.7 TH/MM3 (1.8-7.7); BASOPHIL # 0.1 TH/MM3 (0-0.2); BASOPHIL % 0.4 % (0.0-2.0); EOSINOPHIL # 0.5 TH/MM3 (0-0.4); EOSINOPHIL % 2.9 % (0.0-4.0); HEMATOCRIT 27.6 % (39.0-51.0); HEMO FLAGS DIFF FINAL; LYMPH % 9.2 % (9.0-44.0); LYMPHOCYTE # 1.4 TH/MM3 (1.0-4.8); MEAN CELL VOLUME 95.7 FL (80.0-100.0); MEAN CORPUSCULAR HEMOGLOBIN 31.5 PG (27.0-34.0); MEAN CORPUSCULAR HGB CONC 32.9 % (32.0-36.0); MONO % 10.9 % (0.0-8.0); NEUT % 76.6 % (16.0-70.0); PLATELET COUNT 362 TH/MM3 (150-450); RED BLOOD COUNT 2.88 MIL/MM3 (4.50-5.90); RED CELL DISTRIBUTION WIDTH 15.9 % (11.6-17.2); WHITE BLOOD COUNT 15.3 TH/MM3 (4.0-11.0)
[2016-11-16 04:55] LABS: ANION GAP 10 MEQ/L (5-15); AST (GOT) 39 U/L (15-37); BICARBONATE 25.2 MEQ/L (21.0-32.0); BLOOD UREA NITROGEN 19 MG/DL (7-18); CHLORIDE 110 MEQ/L (98-107); GLOMERULAR FILTRATION RATE 70 ML/MIN (>89); MAGNESIUM 1.8 MG/DL (1.5-2.5); POTASSIUM 3.7 MEQ/L (3.5-5.1); SODIUM (NA) 145 MEQ/L (136-145)
[2016-11-16 05:01] LABS: ALKALINE PHOSPHATASE 160 U/L (45-117); ALT (GPT) 26 U/L (12-78); TOTAL BILIRUBIN ADULT 0.6 MG/DL (0.2-1.0)
[2016-11-16 05:03] LABS: BLOOD GAS BASE EXCESS -2.3 mmol/L (-2-2); BLOOD GAS CARBOXYHEMOGLOBIN 1.5 % (0-4); BLOOD GAS HCO3 22 mmol/L (22-26); BLOOD GAS METHEMOGLOBIN 1.5 % (0-2); BLOOD GAS O2 HGB SATURATION 95 % (90-100); BLOOD GAS OXYGEN CONTENT 12.6 Vol % (12.0-20.0); BLOOD GAS PCO2 36 mmHg (38-42); BLOOD GAS PO2 94 mmHg (61-120); BLOOD GAS TOTAL HGB 9.4 G/DL (12.0-16.0); CRITICAL VALUE NO; OXYGEN DEVICE VENTILATOR; TEMP CORR TO 98.6
[2016-11-16 05:04] LABS: DRAW SITE RT RADIAL; FIO2 45 %; NUMBER OF ARTERIAL PUNCTURES 1; STAT NO; ULNAR PULSE PRESENT; VENT SETTINGS AC16/500/5PEEP
[2016-11-16] MEDS: cefTRIAXone INJ 2,000 MG in SODIUM CHLORIDE 0.9% INJ 100 ML IV SCH (05:23)
[2016-11-16] MEDS: FREE WATER G-TUBE SCH ×4 (05:23→15:34)
[2016-11-16] MEDS: METOCLOPRAMIDE HCL 10 MG/2 ML VIAL IV PUSH SCH ×3 (05:23→21:15)
[2016-11-16] MEDS: INSULIN NovoLIN REGULAR SUPPLEMENTAL SCALE SQ SCH ×4 (05:23→17:40)
[2016-11-16] MEDS: fentaNYL DRIP 250 ML IV SCH (05:24)
--- NOTE | 2016-11-16 05:26 | RADRPT ---
EXAM DATE/TIME: 11/16/2016 04:53 [facility] COMPARISON: CHEST SINGLE AP, November 14, 2016, 4:34. INDICATIONS : Respiratory failure. MEDICAL HISTORY : None. SURGICAL HISTORY : None. ENCOUNTER: Subsequent ACUITY: 3 days PAIN SCORE: Non-responsive. LOCATION: Bilateral chest FINDINGS: A single view of the chest demonstrates extensive right-sided airspace disease with persistent left b asilar effusion/consolidation. No significant change from prior. Heart size remains normal. Endotrach eal tube is been removed with placement of a tracheostomy. Left IJ central venous catheter and nasoga stric tubes are stable in position CONCLUSION: 1. Stable chest with bilateral airspace disease and associated effusions, right greater than left. 2. Interval removal of the endotracheal tube and placement of a tracheostomy.. Kolby Mercedes MD on November 16, 2016 at 5:22 Board Certified Radiologist. This report was verified electronically.
[2016-11-16] MEDS: SODIUM PHOSPHATE INJ 30 MMOL in SODIUM CHLOR 0.9% 250 ML INJ 240 ML IV PRN (08:44)
[2016-11-16] MEDS: SERTRALINE HCL 50 MG TAB PO SCH (08:45)
[2016-11-16] MEDS: PANTOPRAZOLE SODIUM 40 MG VIAL IV SCH (08:45)
[2016-11-16] MEDS: VANCOMYCIN 500 MG VIAL (FOR ORAL USE ONLY) PO SCH ×4 (08:45→21:14)
[2016-11-16] MEDS: DILTIAZEM HCL 60 MG TAB PO SCH ×4 (08:45→21:14)
[2016-11-16] MEDS: SODIUM CHLORIDE 0.9% FLUSH 5 ML FLUSH IV FLUSH SCH ×2 (08:46→21:15)
[2016-11-16] MEDS: SODIUM CHLORIDE 0.9% FLUSH 5 ML FLUSH IVF SCH (08:46)
[2016-11-16] MEDS: BENEPROTEIN POWDER 1 PACK G-TUBE SCH ×3 (08:47→15:34)
[2016-11-16] MEDS: COLLAGENASE OINT 30 GM TUBE TOP SCH (08:47)
[2016-11-16] MEDS: ARTIFICIAL TEARS OPTH SOLN 15 ML BTL EACH EYE SCH ×3 (08:48→17:38)
[2016-11-16] MEDS: CHLORHEXIDINE 0.12% (ORAL KIT) 15 ML CUP MT SCH ×2 (08:49→21:15)
--- NOTE | 2016-11-16 09:47 | MP ---
cc: GILDA YING MD DATE OF SURGERY: 11/15/2016 PREOPERATIVE DIAGNOSIS Respiratory failure, stroke. POSTOPERATIVE DIAGNOSIS Respiratory failure, stroke. OPERATIVE PROCEDURE Tracheostomy Blue Rhino. SURGEON Dr. Ying. CO-SURGEON Dr. Villatoro. ANESTHESIA 1% Xylocaine, Versed, atracurium. ESTIMATED BLOOD LOSS 2 ccs. PROCEDURE The patient was prepped and draped in the usual fashion. Vertical neck incision was made between the sternal notch and the cricoid cartilage, deepened down bluntly with a hemostat to the level of the trachea. Then a needle inserted between second and third tracheal ring by palpation. The remainder of the procedure is followed by bronchoscopy performed by Dr. Villatoro. Through the needle the guidewire was placed and then over the guidewire the single dilator was placed, after that the Blue Rhino is placed to dilate the trachea and then 8 Shiley tracheostomy tube is inserted over the guide, connected to ventilator, end-tidal CO2 checked. The patient is now bronchoscoped and airways are cleared. Shiley cannula is sutured to skin with 0 Prolene and secured with tape around the neck. The patient tolerated the procedure well. Gilda AQUINO/IJEOMA /2:42 PM /9:38 AM
[2016-11-16] MEDS ORDERED: PROPOFOL 200 MG/20 ML AMP IV ONE (13:00)
--- NOTE | 2016-11-16 13:20 | HHI.GIFU ---
Subjective Remarks still intubated and sedated Objective Vitals I&O Vital Signs Date Time Temp Pulse Resp B/P Pulse Ox O2 Delivery O2 Flow Rate FiO2 11/16/16 12:00 45 11/16/16 12:00 99.4 77 14 150/67 94 11/16/16 12:00 77 11/16/16 10:00 74 11/16/16 08:16 97 45 11/16/16 08:00 45 11/16/16 08:00 71 11/16/16 08:00 99.0 71 16 138/64 94 11/16/16 06:00 72 11/16/16 04:16 93 45 11/16/16 04:00 45 11/16/16 04:00 98.8 78 14 139/63 96 11/16/16 04:00 78 11/16/16 02:00 76 11/16/16 01:13 94 45 11/16/16 00:00 74 11/16/16 00:00 98.6 74 13 138/65 97 11/16/16 00:00 45 11/15/16 22:10 96 45 11/15/16 22:00 73 11/15/16 20:00 79 11/15/16 20:00 45 11/15/16 20:00 98.8 78 13 137/65 95 11/15/16 19:12 98 45 11/15/16 18:25 88 11/15/16 16:42 95 45 11/15/16 16:00 104 11/15/16 16:00 45 11/15/16 16:00 98.7 74 20 128/74 95 11/15/16 14:12 96 45 11/15/16 14:00 68 I/O 11/15/16 11/15/16 11/15/16 11/16/16 11/16/16 11/16/16 07:00 15:00 23:00 07:00 15:00 23:00 Intake Total 253 ml 555 ml 783 ml 245 ml Output Total 150 ml 735 ml 600 ml 350 ml Balance 103 ml -180 ml 183 ml -105 ml Intake Oral 0 ml 0 ml IV Total 253 ml 555 ml 723 ml 245 ml Tube Feeding 0 ml Other 60 ml Output Urine Total 150 ml 585 ml 500 ml 300 ml Stool Total 0 ml 150 ml 100 ml 50 ml Laboratory Laboratory Tests Test 11/16/16 11/16/16 03:42 04:50 White Blood Count 15.3 Red Blood Count 2.88 Hemoglobin 9.1 Hematocrit 27.6 Mean Corpuscular Volume 95.7 Mean Corpuscular Hemoglobin 31.5 Mean Corpuscular Hemoglobin 32.9 Concent Red Cell Distribution Width 15.9 Platelet Count 362 Mean Platelet Volume 8.6 Neutrophils (%) (Auto) 76.6 Lymphocytes (%) (Auto) 9.2 Monocytes (%) (Auto) 10.9 Eosinophils (%) (Auto) 2.9 Basophils (%) (Auto) 0.4 Neutrophils # (Auto) 11.7 Lymphocytes # (Auto) 1.4 Monocytes # (Auto) 1.7 Eosinophils # (Auto) 0.5 Basophils # (Auto) 0.1 CBC Comment DIFF FINAL Differential Comment Sodium Level 145 Potassium Level 3.7 Chloride Level 110 Carbon Dioxide Level 25.2 Anion Gap 10 Blood Urea Nitrogen 19 Creatinine 1.01 Estimat Glomerular Filtration 70 Rate Random Glucose 77 Calcium Level 7.6 Phosphorus Level 2.4 Magnesium Level 1.8 Total Bilirubin 0.6 Aspartate Amino Transf 39 (AST/SGOT) Alanine Aminotransferase 26 (ALT/SGPT) Alkaline Phosphatase 160 Total Protein 5.5 Albumin 1.4 Blood Gas Puncture Site RT RADIAL Blood Gas Patient Temperature 98.6 Blood Gas HCO3 22 Blood Gas Base Excess -2.3 Blood Gas Oxygen Saturation 95 Arterial Blood pH 7.40 Arterial Blood Partial 36 Pressure CO2 Arterial Blood Partial 94 Pressure O2 Arterial Blood Oxygen Content 12.6 Arterial Blood 1.5 Carboxyhemoglobin Arterial Blood Methemoglobin 1.5 Blood Gas Hemoglobin 9.4 Oxygen Delivery Device VENTILATOR Blood Gas Ventilator Setting AC16/500/5PEEP Blood Gas Inspired Oxygen 45 Date/Time Procedure Status Source Growth 11/12/16 16:25 Gram Stain - Final Complete Sputum Endotracheal 11/12/16 16:25 Sputum Culture - Final Complete Sputum Endotracheal MODERATE GROWTH NORMAL RESPIRATORY RAMIRO Physical Exam HEENT: Pupils round and reactive to light; normocephalic; atraumatic; no jaundice. Throat is clear. NECK: Neck is supple, no JVD, no lymphadenopathy. CHEST: Chest is clear to auscultation and percussion. crackles CARDIAC: Regular rate and rhythm with no murmur gallop or rubs. ABDOMEN: Soft, nondistended, nontender; no hepatosplenomegaly; bowel sounds are present in all four quadrants. EXTREMITIES: No clubbing, cyanosis, or edema. SKIN: Normal; no rash; no jaundice. Assessment and Plan Plan - Dysphagia/ENT- Patient failed extubation measures, in need for retirement feeding Spoke to , explained risk, benefits and alternative and would like to proceed - C-diff- on Flagyl and frida, ID on the case, repeat stools negative - Respiratory failure- failed extubation and was reintubated there is a plan for trach tomorrow - Healthcare associated pneumonia, ID on the case, abx [id number] dysphagia, PEG in place with EGD Plan: - NPO for 6 hours - He is already on abx - Hold heparin a for 6 hours - Cont. abx per ID - Christofer Moeller MD Nov 16, 2016 13:20
--- NOTE | 2016-11-16 14:21 | HHI.CCPN ---
Subjective Remarks/Hospital Course 86-year-old male. Full code. Resident of [facility]. Date of admission 11/01/2016. Past medical history includes hypertension , COPD, right subdural hematoma status post lucien hole, Alzheimer dementia, chronic kidney disease stage III, BPH, depression, chronic benzodiazepine use and diabetes. Patient presented to [place] ED with several day history of decline in function including generalized illness clean diarrhea, shortness of breath. Recently the patient was diagnosed coronary artery pneumonia and started on an antibiotic. Today, the patient presents lethargic/no unresponsive. Initially seen on 6 L nasal cannula. Laboratories revealed sodium 174. Creatinine is 4.1. White blood cell count 24,000. Chest x-ray revealed possible pneumonia source. UA is currently pending. Patient was emergently intubated using 20 mg etomidate 100 mg succinylcholine due to altered mental status/airway protection 11/02: Afebrile. Adequate urine output. Currently on sedation vacation on CPAP trial. C. difficile positive noted. 11/03: Tmax 99.9. Currently afebrile. Positive BM. Tolerating tube feeding. Squeezes hand to command on sedation vacation but became more agitated and back in A. fib. EEG revealed swelling but no epileptic activity. MRI brain pending. 11/04: Noted that a wide-complex tachycardia overnight. Currently on amiodarone drip. Noted potassium 2.6, calcium low magnesium level. This all been replaced. Currently afebrile. Positive BM. Opens eyes and will squeeze hands occasionally bilateral x-rays. MRI brain revealed no acute intracranial findings. 11/05: Tmax 101.. Currently 99.3. High tube feed residuals currently at 600. 300 return. Recheck in one hour. Positive BM. Opens eyes to command and intermittently follows commands by squeezing hands. Currently on a fentanyl drip wean off. Subjective 11/06: Maximum 100.4. Currently afebrile. Resting comfortably in bed off fentanyl drip. Noted A. fib with RVR overnight on amiodarone drip. This will be discontinued. Placed on low-dose beta dwain in the interim. Positive BM. Not tolerating tube feeding. KUB pending. 11/07: Afebrile. The patient was extubated yesterday and reintubated overnight .The patient tolerating tube feeds for the last 24 hours, however noted elevated alkaline phosphatase. 11/08: Patient remains on CPAP, tolerated 9 hours last evening. Plan for continue CPAP trials throughout the night tonight. All sedation has been discontinued. Home medications Xanax 0.25 when necessary for anxiety. WBC count trending down. 11/09: Afebrile. The patient tolerated CPAP for approximately 20 hours last night. All continuous IV sedation discontinued. Plan today for SBT trial and possible extubation. The patient's alcohol alkaline phosphatase is noted to be trending upward, will obtain gallbladder ultrasound. 11/10: Tmax 100.1. The patient continues to be lethargic main on CPAP since 6 AM this morning. SBT trial parameters, NIF -17,TV 500, RSBI 54, the patient does not follow commands secondary to lethargy. All sedatives have been discontinued including Xanax which is on hold. We'll continue to monitor, attempt a trial of extubation today. Gallbladder ultrasound obtained within increasing alkaline phosphatase, results negative. 11/11 The patient was too lethargic yesterday to perform a trial of extubation. Today the patient is more alert and more responsive still not following commands. SBT trial performed again today though patient was noncompliant.RSBI 42 RR 24 NIF -22 TV 500, positive cuff leak. Performed a trial of extubation this morning. 11/12: Patient was extubated yesterday afternoon, and placed on Ventimask at 50%. The patient was weaned to face mask during the evening. Early this a.m. around 3 AM, the patient was noted to have an extremely weak cough, inability to accept expectorate, required frequent in NT suctioning, secondary to inability to clear secretions. The patient was noted to be tachypnea rate 30s to 40s, O2 O2 saturation being greater than 95%. During that time the patient was also noted to be in A. fib RVR with a heart rate 150 's requiring initiation of Cardizem infusion .The patient was reintubated secondary to inability to clear secretions and protect airway. Mrs. Curry was notified of the events, will discuss with her today plan for tracheostomy. The patient was placed on this a.m., a low-dose fentanyl infusion and Cardizem infusion continues at 10 mg an hour will continue to wean. The patient continues on free water flushes with sodium level 144. 11/13: Afebrile. No acute events overnight. Plan for tracheostomy and PEG placement this week. The patient continues on low dose fentanyl infusion.Cardizem PO was intiated yesterday, and Cardizem infusion was weaned off last night. 11/14 remained stable overnight tracheostomy planned tomorrow at 10 AM 11/16 tracheostomy yesterday PEG tube placement today Objective Vital Signs Date Time Temp Pulse Resp B/P Pulse Ox O2 Delivery O2 Flow Rate FiO2 11/16/16 12:00 45 11/16/16 12:00 99.4 77 14 150/67 94 Intake and Output 11/15/16 11/15/16 11/16/16 08:00 16:00 00:00 Intake Total 253 ml 555 ml 783 ml Output Total 150 ml 735 ml 600 ml Balance 103 ml -180 ml 183 ml Result Diagram: 11/16/16 0342 11/16/16 0342 Other Results Laboratory Tests Test 11/16/16 04:50 Blood Gas Puncture Site RT RADIAL Blood Gas Patient Temperature 98.6 Blood Gas HCO3 22 mmol/L (22-26) Blood Gas Base Excess -2.3 mmol/L (-2-2) Blood Gas Oxygen Saturation 95 % (90-100) Arterial Blood pH 7.40 (7.380-7.420) Arterial Blood Partial 36 mmHg (38-42) Pressure CO2 Arterial Blood Partial 94 mmHg Pressure O2 (61-120) Arterial Blood Oxygen Content 12.6 Vol % (12.0-20.0) Arterial Blood 1.5 % (0-4) Carboxyhemoglobin Arterial Blood Methemoglobin 1.5 % (0-2) Blood Gas Hemoglobin 9.4 G/DL (12.0-16.0) Oxygen Delivery Device VENTILATOR Blood Gas Ventilator Setting AC16/500/5PEEP Blood Gas Inspired Oxygen 45 % Imaging Last Impressions Chest X-Ray 11/05/16 0000 Signed Impressions: Service Date/Time: Saturday, November 05, 2016 09:21 - CONCLUSION: Increase in left lower lung atelectasis versus consolidation and increase in small left pleural effusion. Sarthak Clark MD Brain MRI 11/03/16 0000 Signed Impressions: Service Date/Time: October 18:28 - CONCLUSION: Stable chronic changes as described above. No acute intracranial process. Antolin Pulido MD Head CT 11/01/16 1139 Signed Impressions: Service Date/Time: Tuesday, November 01, 2016 15:09 - CONCLUSION: 1. Cerebral atrophy and chronic ischemic small vessel vasculopathy. 2. Remote bilateral lacunar infarcts. Chao Hensley MD Renal Ultrasound 11/01/16 0000 Signed Impressions: Service Date/Time: Tuesday, November 01, 2016 16:47 - CONCLUSION: 1. Kidneys are slightly echogenic which can be seen with medical renal disease. 2. Urinary bladder decompressed by Masters catheter. Chao Hensley MD Abdomen/Pelvis CT 11/01/16 0000 Signed Impressions: Service Date/Time: Tuesday, November 01, 2016 15:12 - CONCLUSION: 1. No acute finding is identified within the abdomen or pelvis. There is a segment of mildly dilated mid jejunum in the left abdomen but otherwise there are no findings present to suggest bowel obstruction. 2. Severe atherosclerotic disease. 3. Airspace consolidation in both lower lobes, left greater than right. Arvind Kyle MD Objective Remarks GENERAL: 86-year-old male, intubated and sedated SKIN: Warm and dry.abrasions on knees bilaterally and sacral decubitus ulcer/ regimen stage I, peripheral edema HEAD: Atraumatic. Normocephalic. EYES: Left pupil is 2 mm and irregular. Right pupil is pinpoint in reactive to light. No scleral icterus. No injection or drainage. ENT: No nasal bleeding or discharge. Mucous membranes pink and moist. NECK: Trachea midline. No JVD. CARDIOVASCULAR: Regular rate and rhythm. S1, S2. No S4. Without murmur RESPIRATORY: Noted expiratory wheeze. Breath sounds equal bilaterally. GASTROINTESTINAL: Abdomen soft, non-tender, nondistended. Hepatic and splenic margins not palpable. MUSCULOSKELETAL: Extremities peripheral edema, resolving. No obvious deformities. NEUROLOGICAL: Intubated.RASS -2. Sedated Date of Insertion: Nov 03, 2016 Line: Central Venous Catheter Side: Left Location: Internal, Jugular A/P Assessment and Plan Neuro/Psych: Acute toxic metabolic encephalopathy Alzheimer's dementia Depression History of right subdural hematoma status post bur hole Chronic benzodiazepine use Chronic narcotic use History of insomnia Lethargy Xanax held CT head 11/02 revealed bilateral lacunar basal ganglia infarct/old with ventriculomegaly 11/03 - MRI brain revealed no acute intracranial findings EEG shows no signs of seizure activity Continue sertraline 25 mg by mouth daily for depression Holding melatonin 3 mg at night for insomnia Patient sedated and intubated Fentanyl infusion low-dose initiated for sedation, Goal RASS -2 Start weaning of sedation tomorrow after PEG tube placement CV: History of right CVA Hypertension Atrial fibrillation with RVR-resolved Lactic acidosis - resolved Elevated troponin likely demand ischemia Initially EKG reveals sinus tachycardia with diffuse ST T changes throughout multiple leads likely related to dehydration/demand ischemia Cycle troponins. Peaked at 1.16. trending downward Echo revealed EF 55-60%. Will require nuclear stress test prior to discharge Holding home medications lisinopril 10 mg daily in light of hypotension/acute kidney injury Discontinued amiodarone drip or 11/06. Metoprolol PRN Resp: Acute hypoxemic respiratory failure Mechanical ventilation/16/500/50%/5 Ventilator bundle Bronchodilator therapy every 6 hours and as needed, and every 2 hours when necessary 11/09 Chest v-ena-[id number] improvement Hold CPAP trials until tracheostomy ion place Trial of extubation performed (11/11), third reintubation(11/12) Tracheostomy done yesterday without complications Start weaning the trach collar tomorrow GI: Diarrhea/C. difficile positive Reinitiate Tube feeds Nepro will rate 50 cc/hour Add prokinetic agent Reglan 5mg every 8hrs Protonix for GI prophylaxis. Protonix [address] daily at home CT abdomen/pelvis revealed no obstruction or possible some mild dilatation the mid jejunum. Atherosclerotic vascular disease KUB 11/07 nonspecific Gallbladder ultrasound-negative 11/11 C. difficile antigen negative GI consulted for PEG placement today : History of BPH status post TURP Maintain Masters Strict I's and O's Endo: Diabetes mellitus type 2 Hyperglycemia of Sliding-scale insulin Glucose monitoring per ICU protocol Renal: Acute on chronic kidney injury-resolved Rhabdomyolysis-resolved 0.45 NS @75cc/hr discontinued 11/11 Avoid nephrotoxic drugs Renal ultrasound no hydronephrosis. Possibly early medical renal disease. Negative urine eosinophils Creatinine kinase 260 within normal limits Sodium within normal [id number], will continue free water flushes for now Creatinine improvoing Good urine output Heme: Leukocytosis Normocytic anemia Daily CBC/CMP. Monitor trends ID: Likely healthcare associated pneumonia -Klebsiella and staph aureus C. difficile positive Received vancomycin ED. Aztreonam and Flagyl. Day #6 discontinued 11/05 IV Flagyl/by mouth vancomycin for C. difficile day #[address] Pepe following Rocephin day 8 11/01 - Blood cultures 2 no growth, urine no growth, sputum revealed Klebsiella /staph aureus, influenza negative, urine Legionella and pneumococcal antigens negative ID consult for antibiotic management Dr. Pepe 10/15 -BAL- NGTD 11/11-C Diff antigen- negative FEN: Hypernatremia-resolved Hyperchloridemia-resolved Hypopotassemia Hypophosphatemia Continue Free water flushes 250 cc every 6 hours. Replete electrolytes per ICU protocol MSK: History of left total knee arthroplasty PT evaluate and treat- Functional Maintenance Sacral decubitus-wound care consulted follow-up recommendations Access -Left IJ CVL day 9 Prophylaxis - GI - Protonix - DVT - SCD/heparin subcutaneous Dispo: Discussed with and [employer] at bedside. Critical Care: Level 3 Emeterio Villatoro MD Nov 16, 2016 14:21
[2016-11-16] MEDS ORDERED: PHARMACY ORDERED LAB XX ONE (16:45)
[2016-11-16] MEDS: RESP: ALBUTEROL 2.5 MG/IPRATROPIUM 0.5 MG NEB (PRN) INH (20:30)
[2016-11-17] VITALS (15 sets, daily range): BP systolic 109–144; BP diastolic 53–78; PULSE 63–119; RESP 14–16; TEMP 98.8–99.3; O2SAT 95–100
[2016-11-17] MEDS: metroNIDAZOLE 500 MG INJ 100 ML IV SCH ×3 (00:42→15:56)
[2016-11-17] MEDS: CHLORHEXIDINE GLUCONATE 2 % 1 PACK (2 CLOTHS) TOP SCH ×2 (00:42→04:00)
[2016-11-17] MEDS: cefTRIAXone INJ 2,000 MG in SODIUM CHLORIDE 0.9% INJ 100 ML IV SCH (05:56)
[2016-11-17] MEDS: METOCLOPRAMIDE HCL 10 MG/2 ML VIAL IV PUSH SCH ×2 (05:57→13:27)
[2016-11-17] MEDS: FREE WATER G-TUBE SCH ×4 (05:57→17:10)
[2016-11-17] MEDS: INSULIN NovoLIN REGULAR SUPPLEMENTAL SCALE SQ SCH ×4 (05:57→17:09)
[2016-11-17] MEDS: CHLORHEXIDINE 0.12% (ORAL KIT) 15 ML CUP MT SCH (08:29)
[2016-11-17] MEDS: SODIUM CHLORIDE 0.9% FLUSH 5 ML FLUSH IV FLUSH SCH (08:30)
[2016-11-17] MEDS: PANTOPRAZOLE SODIUM 40 MG VIAL IV SCH (08:30)
[2016-11-17] MEDS: ARTIFICIAL TEARS OPTH SOLN 15 ML BTL EACH EYE SCH ×3 (08:30→17:09)
[2016-11-17] MEDS: BENEPROTEIN POWDER 1 PACK G-TUBE SCH ×3 (08:30→17:09)
[2016-11-17] MEDS: SODIUM CHLORIDE 0.9% FLUSH 5 ML FLUSH IVF SCH (08:31)
[2016-11-17] MEDS: COLLAGENASE OINT 30 GM TUBE TOP SCH (08:31)
[2016-11-17] MEDS: DILTIAZEM HCL 60 MG TAB PO SCH ×3 (08:31→17:09)
[2016-11-17] MEDS: SERTRALINE HCL 50 MG TAB PO SCH (08:31)
[2016-11-17] MEDS: VANCOMYCIN 500 MG VIAL (FOR ORAL USE ONLY) PO SCH ×3 (08:31→17:09)
--- NOTE | 2016-11-17 10:04 | HHI.GIFU ---
Subjective Remarks Resting in bed. No distress. TF has not been started yet. No distress. Objective Vitals I&O Vital Signs Date Time Temp Pulse Resp B/P Pulse Ox O2 Delivery O2 Flow Rate FiO2 11/17/16 09:18 96 45 11/17/16 08:00 80 11/17/16 08:00 99.3 80 16 128/59 97 11/17/16 08:00 45 11/17/16 06:00 85 11/17/16 04:12 96 45 11/17/16 04:00 99.0 79 16 138/60 97 11/17/16 04:00 45 11/17/16 04:00 79 11/17/16 02:00 77 11/17/16 01:11 98 45 11/17/16 00:00 77 11/17/16 00:00 98.8 77 16 144/78 100 11/17/16 00:00 45 11/16/16 23:45 98 45 11/16/16 22:12 94 45 11/16/16 22:00 79 11/16/16 20:27 97 45 11/16/16 20:00 92 11/16/16 20:00 98.9 92 16 148/67 99 11/16/16 20:00 45 11/16/16 18:00 85 11/16/16 16:08 97 45 11/16/16 16:00 45 11/16/16 16:00 99.0 75 15 148/64 97 11/16/16 16:00 75 11/16/16 14:00 76 11/16/16 12:00 45 11/16/16 12:00 99.4 77 14 150/67 94 11/16/16 12:00 77 11/16/16 10:00 74 I/O 11/16/16 11/16/16 11/16/16 11/17/16 11/17/16 11/17/16 07:00 15:00 23:00 07:00 15:00 23:00 Intake Total 245 ml 474 ml 388 ml 740 ml Output Total 350 ml 250 ml 1125 ml 350 ml Balance -105 ml 224 ml -737 ml 390 ml IV Total 245 ml 444 ml 328 ml 240 ml Tube Feeding 30 ml Other 60 ml 500 ml Output Urine Total 300 ml 100 ml 675 ml 350 ml Stool Total 50 ml 150 ml 450 ml 0 ml Laboratory Laboratory Tests Test 3/8/17 20:45 Phosphorus Level 3.3 Date/Time Procedure Status Source Growth 11/12/16 16:25 Gram Stain - Final Complete Sputum Endotracheal 11/12/16 16:25 Sputum Culture - Final Complete Sputum Endotracheal MODERATE GROWTH NORMAL RESPIRATORY RAMIRO Imaging Last Impressions Chest X-Ray 11/16/16 0600 Signed Impressions: Service Date/Time: Wednesday, November 16, 2016 04:53 - CONCLUSION: 1. Stable chest with bilateral airspace disease and associated effusions, right greater than left. 2. Interval removal of the endotracheal tube and placement of a tracheostomy.. Kolby Mercedes MD Gall Bladder Ultrasound 11/09/16 0000 Signed Impressions: Service Date/Time: Wednesday, November 09, 2016 14:36 - CONCLUSION: 1. Negative examination. Joshua Irby MD Head CT 11/06/16 0000 Signed Impressions: Service Date/Time: Sunday, November 06, 2016 22:00 - CONCLUSION: 1. Cerebral atrophy and chronic ischemic small vessel vasculopathy. 2. Remote bilateral basal ganglia lacunar infarcts. Chao Hensley MD Abdomen X-Ray 11/06/16 0000 Signed Impressions: Service Date/Time: Sunday, November 06, 2016 07:43 - CONCLUSION: Benign-appearing abdomen. Arvind Márquez MD Brain MRI 11/03/16 0000 Signed Impressions: Service Date/Time: October 18:28 - CONCLUSION: Stable chronic changes as described above. No acute intracranial process. Antolin Pulido MD Renal Ultrasound 11/01/16 0000 Signed Impressions: Service Date/Time: Tuesday, November 01, 2016 16:47 - CONCLUSION: 1. Kidneys are slightly echogenic which can be seen with medical renal disease. 2. Urinary bladder decompressed by Masters catheter. Chao Hensley MD Abdomen/Pelvis CT 11/01/16 0000 Signed Impressions: Service Date/Time: Tuesday, November 01, 2016 15:12 - CONCLUSION: 1. No acute finding is identified within the abdomen or pelvis. There is a segment of mildly dilated mid jejunum in the left abdomen but otherwise there are no findings present to suggest bowel obstruction. 2. Severe atherosclerotic disease. 3. Airspace consolidation in both lower lobes, left greater than right. Arvind Kyle MD Physical Exam HEENT: Normocephalic; atraumatic; no jaundice. CHEST: Scattered rhonchi. Trach with T Bar. CARDIAC: RRR ABDOMEN: Soft, nondistended, nontender; no hepatosplenomegaly; bowel sounds are present in all four quadrants. EXTREMITIES: Generalized edema. SKIN: Normal; no rash; no jaundice. Assessment and Plan Plan ASSESSMENT: - Dysphagia/ENT. S/P EGD with PEG tube placement (11/16/16). Postbed Stitcher following , recommends Nepro 45cc/hr, Beneprotein TID. - C-diff- on Flagyl and rafiqo, ID on the case, repeat stools negative - Respiratory failure- failed extubation and was reintubated there is a plan for trach tomorrow - Healthcare associated pneumonia, ID on the case, abx Plan: - Nepro 45cc/hr - Beneprotein TID - GI will sign off, please reconsults as needed - Pt seen and examined by Dr. Rain and myself and this note is written on his behalf Ayaka Arzola Nov 17, 2016 10:04
[2016-11-17] MEDS: fentaNYL DRIP 250 ML IV SCH (10:24)
--- NOTE | 2016-11-17 13:15 | MR ---
cc: CANDI RAIN M.D. DATE 11/17/2015 DATE OF [address] Hirsch PROCEDURE Upper gastrointestinal endoscopy with PEG tube placement endoscopy. ENDOSCOPIST Dr. Rain MEDICATIONS Propofol administered by anesthesia. INSTRUMENT Pentax upper scope INDICATION An 86-year-old gentleman who is intubated. The patient has dysphagia and needs PEG tube for long-term feeding. PROCEDURE After informing the patient about the procedure and complications, consent was signed. The patient was placed on his back. Adequate sedation was achieved by propofol. The scope was placed in the mouth, advanced under video guidance to the second portion of the duodenum. The scope drawn back to the stomach, retroflexion was performed. The area for the PEG tube was identified, sterilized with Betadine, injected with lidocaine and 20-Persian Microvasive PEG tube was placed with a pull technique without any immediate complication. Verification of the PEG tube was verified by endoscopy again. The patient currently on antibiotic and no antibiotic was given pre-procedure. FINDINGS EGD normal exam. PEG tube was placed as above. RECOMMENDATIONS N.p.o. for six hours then may use PEG tube for medicine and feeding. MD KRISHNA Ruiz/JOSEPH /1:12 PM /1:05 PM
--- NOTE | 2016-11-17 15:30 | HHI.CCPN ---
Subjective Remarks/Hospital Course 86-year-old male. Full code. Resident of [facility]. Date of admission 11/01/2016. Past medical history includes hypertension , COPD, right subdural hematoma status post lucien hole, Alzheimer dementia, chronic kidney disease stage III, BPH, depression, chronic benzodiazepine use and diabetes. Patient presented to [facility] ED with several day history of decline in function including generalized illness clean diarrhea, shortness of breath. Recently the patient was diagnosed coronary artery pneumonia and started on an antibiotic. Today, the patient presents lethargic/no unresponsive. Initially seen on 6 L nasal cannula. Laboratories revealed sodium 174. Creatinine is 4.1. White blood cell count 24,000. Chest x-ray revealed possible pneumonia source. UA is currently pending. Patient was emergently intubated using 20 mg etomidate 100 mg succinylcholine due to altered mental status/airway protection 11/02: Afebrile. Adequate urine output. Currently on sedation vacation on CPAP trial. C. difficile positive noted. 11/03: Tmax 99.9. Currently afebrile. Positive BM. Tolerating tube feeding. Squeezes hand to command on sedation vacation but became more agitated and back in A. fib. EEG revealed swelling but no epileptic activity. MRI brain pending. 11/04: Noted that a wide-complex tachycardia overnight. Currently on amiodarone drip. Noted potassium 2.6, calcium low magnesium level. This all been replaced. Currently afebrile. Positive BM. Opens eyes and will squeeze hands occasionally bilateral x-rays. MRI brain revealed no acute intracranial findings. 11/05: Tmax 101.. Currently 99.3. High tube feed residuals currently at 600. 300 return. Recheck in one hour. Positive BM. Opens eyes to command and intermittently follows commands by squeezing hands. Currently on a fentanyl drip wean off. Subjective 11/06: Maximum 100.4. Currently afebrile. Resting comfortably in bed off fentanyl drip. Noted A. fib with RVR overnight on amiodarone drip. This will be discontinued. Placed on low-dose beta dwain in the interim. Positive BM. Not tolerating tube feeding. KUB pending. 11/07: Afebrile. The patient was extubated yesterday and reintubated overnight .The patient tolerating tube feeds for the last 24 hours, however noted elevated alkaline phosphatase. 11/08: Patient remains on CPAP, tolerated 9 hours last evening. Plan for continue CPAP trials throughout the night tonight. All sedation has been discontinued. Home medications Xanax 0.25 when necessary for anxiety. WBC count trending down. 11/09: Afebrile. The patient tolerated CPAP for approximately 20 hours last night. All continuous IV sedation discontinued. Plan today for SBT trial and possible extubation. The patient's alcohol alkaline phosphatase is noted to be trending upward, will obtain gallbladder ultrasound. 11/10: Tmax 100.1. The patient continues to be lethargic main on CPAP since 6 AM this morning. SBT trial parameters, NIF -17,TV 500, RSBI 54, the patient does not follow commands secondary to lethargy. All sedatives have been discontinued including Xanax which is on hold. We'll continue to monitor, attempt a trial of extubation today. Gallbladder ultrasound obtained within increasing alkaline phosphatase, results negative. 11/11 The patient was too lethargic yesterday to perform a trial of extubation. Today the patient is more alert and more responsive still not following commands. SBT trial performed again today though patient was noncompliant.RSBI 42 RR 24 NIF -22 TV 500, positive cuff leak. Performed a trial of extubation this morning. 11/12: Patient was extubated yesterday afternoon, and placed on Ventimask at 50%. The patient was weaned to face mask during the evening. Early this a.m. around 3 AM, the patient was noted to have an extremely weak cough, inability to accept expectorate, required frequent in NT suctioning, secondary to inability to clear secretions. The patient was noted to be tachypnea rate 30s to 40s, O2 O2 saturation being greater than 95%. During that time the patient was also noted to be in A. fib RVR with a heart rate 150 's requiring initiation of Cardizem infusion .The patient was reintubated secondary to inability to clear secretions and protect airway. Mrs. Curry was notified of the events, will discuss with her today plan for tracheostomy. The patient was placed on this a.m., a low-dose fentanyl infusion and Cardizem infusion continues at 10 mg an hour will continue to wean. The patient continues on free water flushes with sodium level 144. 3/5: Afebrile. No acute events overnight. Plan for tracheostomy and PEG placement this week. The patient continues on low dose fentanyl infusion.Cardizem PO was intiated yesterday, and Cardizem infusion was weaned off last night. 36 remained stable overnight tracheostomy planned tomorrow at 10 AM 11/16 tracheostomy yesterday PEG tube placement today 11/17 no acute issues overnight Objective Vital Signs Date Time Temp Pulse Resp B/P Pulse Ox O2 Delivery O2 Flow Rate FiO2 11/17/16 14:00 119 11/17/16 12:36 96 45 11/17/16 12:00 98.8 14 138/56 Intake and Output 11/16/16 11/16/16 11/17/16 08:00 16:00 00:00 Intake Total 245 ml 474 ml 388 ml Output Total 350 ml 250 ml 1125 ml Balance -105 ml 224 ml -737 ml Result Diagram: 11/16/16 0342 11/16/16 0342 Imaging Last Impressions Chest X-Ray 11/05/16 0000 Signed Impressions: Service Date/Time: Saturday, November 05, 2016 09:21 - CONCLUSION: Increase in left lower lung atelectasis versus consolidation and increase in small left pleural effusion. Sarthak Clark MD Brain MRI 11/03/16 0000 Signed Impressions: Service Date/Time: October 18:28 - CONCLUSION: Stable chronic changes as described above. No acute intracranial process. Antolin Pulido MD Head CT 11/01/16 1139 Signed Impressions: Service Date/Time: Tuesday, November 01, 2016 15:09 - CONCLUSION: 1. Cerebral atrophy and chronic ischemic small vessel vasculopathy. 2. Remote bilateral lacunar infarcts. Chao Hensley MD Renal Ultrasound 11/01/16 0000 Signed Impressions: Service Date/Time: Tuesday, November 01, 2016 16:47 - CONCLUSION: 1. Kidneys are slightly echogenic which can be seen with medical renal disease. 2. Urinary bladder decompressed by Masters catheter. Chao Hensley MD Abdomen/Pelvis CT 11/01/16 0000 Signed Impressions: Service Date/Time: Tuesday, November 01, 2016 15:12 - CONCLUSION: 1. No acute finding is identified within the abdomen or pelvis. There is a segment of mildly dilated mid jejunum in the left abdomen but otherwise there are no findings present to suggest bowel obstruction. 2. Severe atherosclerotic disease. 3. Airspace consolidation in both lower lobes, left greater than right. Arvind Kyle MD Objective Remarks GENERAL: 86-year-old male, intubated and sedated SKIN: Warm and dry.abrasions on knees bilaterally and sacral decubitus ulcer/ regimen stage I, peripheral edema HEAD: Atraumatic. Normocephalic. EYES: Left pupil is 2 mm and irregular. Right pupil is pinpoint in reactive to light. No scleral icterus. No injection or drainage. ENT: No nasal bleeding or discharge. Mucous membranes pink and moist. NECK: Trachea midline. No JVD. CARDIOVASCULAR: Regular rate and rhythm. S1, S2. No S4. Without murmur RESPIRATORY: Noted expiratory wheeze. Breath sounds equal bilaterally. GASTROINTESTINAL: Abdomen soft, non-tender, nondistended. Hepatic and splenic margins not palpable. MUSCULOSKELETAL: Extremities peripheral edema, resolving. No obvious deformities. NEUROLOGICAL: Intubated.RASS -2. Sedated Date of Insertion: Nov 03, 2016 Line: Central Venous Catheter Side: Left Location: Internal, Jugular A/P Assessment and Plan Neuro/Psych: Acute toxic metabolic encephalopathy Alzheimer's dementia Depression History of right subdural hematoma status post bur hole Chronic benzodiazepine use Chronic narcotic use History of insomnia Lethargy Xanax held CT head 11/02 revealed bilateral lacunar basal ganglia infarct/old with ventriculomegaly 11/03 - MRI brain revealed no acute intracranial findings EEG shows no signs of seizure activity Continue sertraline 25 mg by mouth daily for depression Holding melatonin 3 mg at night for insomnia Patient sedated and intubated Fentanyl infusion low-dose initiated for sedation, Goal RASS -2 Start weaning of sedation tomorrow after PEG tube placement CV: History of right CVA Hypertension Atrial fibrillation with RVR-resolved Lactic acidosis - resolved Elevated troponin likely demand ischemia Initially EKG reveals sinus tachycardia with diffuse ST T changes throughout multiple leads likely related to dehydration/demand ischemia Cycle troponins. Peaked at 1.16. trending downward Echo revealed EF 55-60%. Will require nuclear stress test prior to discharge Holding home medications lisinopril 10 mg daily in light of hypotension/acute kidney injury Discontinued amiodarone drip or 11/06. Metoprolol PRN Resp: Acute hypoxemic respiratory failure Mechanical ventilation/16/500/50%/5 Ventilator bundle Bronchodilator therapy every 6 hours and as needed, and every 2 hours when necessary 11/09 Chest [id number] improvement Hold CPAP trials until tracheostomy ion place Trial of extubation performed (11/11), third reintubation(11/12) Tracheostomy done yesterday without complications Start weaning the trach collar tomorrow GI: Diarrhea/C. difficile positive Reinitiate Tube feeds Nepro will rate 50 cc/hour Add prokinetic agent Reglan 5mg every 8hrs Protonix for GI prophylaxis. Protonix [address] daily at home CT abdomen/pelvis revealed no obstruction or possible some mild dilatation the mid jejunum. Atherosclerotic vascular disease KUB 11/07 nonspecific Gallbladder ultrasound-negative 11/11 C. difficile antigen negative GI consulted for PEG placement today : History of BPH status post TURP Maintain Masters Strict I's and O's Endo: Diabetes mellitus type 2 Hyperglycemia of Sliding-scale insulin Glucose monitoring per ICU protocol Renal: Acute on chronic kidney injury-resolved Rhabdomyolysis-resolved 0.45 NS @75cc/hr discontinued 11/11 Avoid nephrotoxic drugs Renal ultrasound no hydronephrosis. Possibly early medical renal disease. Negative urine eosinophils Creatinine kinase 260 within normal limits Sodium within normal [id number], will continue free water flushes for now Creatinine improvoing Good urine output Heme: Leukocytosis Normocytic anemia Daily CBC/CMP. Monitor trends ID: Likely healthcare associated pneumonia -Klebsiella and staph aureus C. difficile positive Received vancomycin ED. Aztreonam and Flagyl. Day #6 discontinued 11/05 IV Flagyl/by mouth vancomycin for C. difficile day #[address] Pepe following Rocephin day 8 11/01 - Blood cultures 2 no growth, urine no growth, sputum revealed Klebsiella /staph aureus, influenza negative, urine Legionella and pneumococcal antigens negative ID consult for antibiotic management Dr. Pepe 10/15 -BAL- NGTD 11/11-C Diff antigen- negative FEN: Hypernatremia-resolved Hyperchloridemia-resolved Hypopotassemia Hypophosphatemia Continue Free water flushes 250 cc every 6 hours. Replete electrolytes per ICU protocol MSK: History of left total knee arthroplasty PT evaluate and treat- Functional Maintenance Sacral decubitus-wound care consulted follow-up recommendations Access -Left IJ CVL day 9 Prophylaxis - GI - Protonix - DVT - SCD/heparin subcutaneous Dispo: Discussed with and LION HUNTER at bedside. Critical Care: Level 3 Emeterio Villatoro MD Nov 17, 2016 15:30
--- NOTE | 2016-11-17 16:03 | HHI.DS ---
Discharge Summary Admission Date Nov 01, 2016 at 13:28 Admitting Diagnosis Hypernatremia secondary to dehydration, pneumonia (1) Acute respiratory failure ICD Code: J96.00 Diagnosis: Principal (2) Dixtj-pj-qqwpxer kidney injury ICD Code: N17.9 Diagnosis: Principal (3) Lactic acidosis ICD Code: E87.2 Diagnosis: Principal (4) Elevated troponin ICD Code: R74.8 Diagnosis: Principal (5) Rhabdomyolysis ICD Code: M62.82 Diagnosis: Principal (6) Hyperchloremia ICD Code: E87.8 Diagnosis: Principal (7) Diabetes mellitus ICD Code: E11.9 Diagnosis: Principal (8) Subdural hematoma caused by concussion ICD Code: S06.5X9A Diagnosis: Principal (9) Acute hypernatremia ICD Code: E87.0 Diagnosis: Principal (10) Alzheimer's dementia ICD Code: F02.80 Diagnosis: Principal (11) HTN (hypertension) ICD Code: I10 Diagnosis: Principal (12) Dementia ICD Code: F03.90 Diagnosis: Principal (13) Leukocytosis ICD Code: D72.829 Diagnosis: Principal (14) SDH (subdural hematoma) ICD Code: I62.00 Diagnosis: Principal (15) History of BPH ICD Code: Z87.438 Diagnosis: Principal (16) Depression ICD Code: F32.9 Diagnosis: Principal (17) Diarrhea ICD Code: R19.7 Diagnosis: Principal (18) Pneumonia ICD Code: J18.9 Diagnosis: Principal (19) Severe sepsis ICD Code: A41.9 Diagnosis: Principal (20) History of lucien hole surgery ICD Code: Z98.89 Diagnosis: Principal Brief History 86-year-old male. Full code. Resident of [facility]. Date of admission 11/01/2016. Past medical history includes hypertension , COPD, right subdural hematoma status post lucien hole, Alzheimer dementia, chronic kidney disease stage III, BPH, depression, chronic benzodiazepine use and diabetes. Patient presented to [facility] ED with several day history of decline in function including generalized illness clean diarrhea, shortness of breath. Recently the patient was diagnosed coronary artery pneumonia and started on an antibiotic. Today, the patient presents lethargic/no unresponsive. Initially seen on 6 L nasal cannula. Laboratories revealed sodium 174. Creatinine is 4.1. White blood cell count 24,000. Chest x-ray revealed possible pneumonia source. UA is currently pending. Patient was emergently intubated using 20 mg etomidate 100 mg succinylcholine due to altered mental status/airway protection CBC/BMP: 11/16/16 0342 11/16/16 0342 Significant Findings Laboratory Tests Test 11/15/16 11/15/16 11/16/16 11/16/16 04:00 05:14 03:42 04:50 White Blood Count 13.0 TH/MM3 15.3 TH/MM3 (4.0-11.0) (4.0-11.0) Red Blood Count 2.88 MIL/MM3 2.88 MIL/MM3 (4.50-5.90) (4.50-5.90) Hemoglobin 8.9 GM/DL 9.1 GM/DL (13.0-17.0) (13.0-17.0) Hematocrit 27.8 % 27.6 % (39.0-51.0) (39.0-51.0) Mean Corpuscular Hemoglobin 31.9 % Concent (32.0-36.0) Neutrophils (%) (Auto) 75.0 % 76.6 % (16.0-70.0) (16.0-70.0) Monocytes (%) (Auto) 10.8 % 10.9 % (0.0-8.0) (0.0-8.0) Neutrophils # (Auto) 9.8 TH/MM3 11.7 TH/MM3 (1.8-7.7) (1.8-7.7) Monocytes # (Auto) 1.4 TH/MM3 1.7 TH/MM3 (0-0.9) (0-0.9) Potassium Level 3.4 MEQ/L (3.5-5.1) Chloride Level 108 MEQ/L 110 MEQ/L (98-107) (98-107) Blood Urea Nitrogen 23 MG/DL (7-18) 19 MG/DL (7-18) Estimat Glomerular Filtration 59 ML/MIN (>89) 70 ML/MIN (>89) Rate Calcium Level 7.2 MG/DL 7.6 MG/DL (8.5-10.1) (8.5-10.1) Protein Corrected Calcium 8.2 MG/DL (8.5-10.1) Phosphorus Level 2.3 MG/DL 2.4 MG/DL (2.5-4.9) (2.5-4.9) Aspartate Amino Transf 43 U/L (15-37) 39 U/L (15-37) (AST/SGOT) Alkaline Phosphatase 148 U/L 160 U/L (45-117) (45-117) Total Protein 5.3 GM/DL 5.5 GM/DL (6.4-8.2) (6.4-8.2) Albumin 1.4 GM/DL 1.4 GM/DL (3.4-5.0) (3.4-5.0) Arterial Blood Partial 35 mmHg (38-42) 36 mmHg (38-42) Pressure CO2 Blood Gas Hemoglobin 9.3 G/DL 9.4 G/DL (12.0-16.0) (12.0-16.0) Eosinophils # (Auto) 0.5 TH/MM3 (0-0.4) Blood Gas Base Excess -2.3 mmol/L (-2-2) Hospital Course 11/02: Afebrile. Adequate urine output. Currently on sedation vacation on CPAP trial. C. difficile positive noted. 11/03: Tmax 99.9. Currently afebrile. Positive BM. Tolerating tube feeding. Squeezes hand to command on sedation vacation but became more agitated and back in A. fib. EEG revealed swelling but no epileptic activity. MRI brain pending. 11/04: Noted that a wide-complex tachycardia overnight. Currently on amiodarone drip. Noted potassium 2.6, calcium low magnesium level. This all been replaced. Currently afebrile. Positive BM. Opens eyes and will squeeze hands occasionally bilateral x-rays. MRI brain revealed no acute intracranial findings. 11/05: Tmax 101.. Currently 99.3. High tube feed residuals currently at 600. 300 return. Recheck in one hour. Positive BM. Opens eyes to command and intermittently follows commands by squeezing hands. Currently on a fentanyl drip wean off. 11/06: Maximum 100.4. Currently afebrile. Resting comfortably in bed off fentanyl drip. Noted A. fib with RVR overnight on amiodarone drip. This will be discontinued. Placed on low-dose beta dwain in the interim. Positive BM. Not tolerating tube feeding. KUB pending. 11/07: Afebrile. The patient was extubated yesterday and reintubated overnight .The patient tolerating tube feeds for the last 24 hours, however noted elevated alkaline phosphatase. 11/08: Patient remains on CPAP, tolerated 9 hours last evening. Plan for continue CPAP trials throughout the night tonight. All sedation has been discontinued. Home medications Xanax 0.25 when necessary for anxiety. WBC count trending down. 11/09: Afebrile. The patient tolerated CPAP for approximately 20 hours last night. All continuous IV sedation discontinued. Plan today for SBT trial and possible extubation. The patient's alcohol alkaline phosphatase is noted to be trending upward, will obtain gallbladder ultrasound. 11/10: Tmax 100.1. The patient continues to be lethargic main on CPAP since 6 AM this morning. SBT trial parameters, NIF -17,TV 500, RSBI 54, the patient does not follow commands secondary to lethargy. All sedatives have been discontinued including Xanax which is on hold. We'll continue to monitor, attempt a trial of extubation today. Gallbladder ultrasound obtained within increasing alkaline phosphatase, results negative. 11/11 The patient was too lethargic yesterday to perform a trial of extubation. Today the patient is more alert and more responsive still not following commands. SBT trial performed again today though patient was noncompliant.RSBI 42 RR 24 NIF -22 TV 500, positive cuff leak. Performed a trial of extubation this morning. 11/12: Patient was extubated yesterday afternoon, and placed on Ventimask at 50%. The patient was weaned to face mask during the evening. Early this a.m. around 3 AM, the patient was noted to have an extremely weak cough, inability to accept expectorate, required frequent in NT suctioning, secondary to inability to clear secretions. The patient was noted to be tachypnea rate 30s to 40s, O2 O2 saturation being greater than 95%. During that time the patient was also noted to be in A. fib RVR with a heart rate 150 's requiring initiation of Cardizem infusion .The patient was reintubated secondary to inability to clear secretions and protect airway. Mrs. Curry was notified of the events, will discuss with her today plan for tracheostomy. The patient was placed on this a.m., a low-dose fentanyl infusion and Cardizem infusion continues at 10 mg an hour will continue to wean. The patient continues on free water flushes with sodium level 144. 3/5: Afebrile. No acute events overnight. Plan for tracheostomy and PEG placement this week. The patient continues on low dose fentanyl infusion.Cardizem PO was intiated yesterday, and Cardizem infusion was weaned off last night. 3/6 remained stable overnight tracheostomy planned tomorrow at 10 AM 3/8 tracheostomy yesterday PEG tube placement today 11/17 no acute issues overnight Pt Condition on Discharge: Stable Discharge Disposition: Trnsfr to Other Facility ([facility]) Discharge Instructions DIET: Follow Instructions for: On Tube Feeding Activities you can perform: Continue Emeterio Dobbs MD Nov 17, 2016 16:03 continues at 10 mg an hour will continue to wean. The patient continues on free water flushes with sodium level 144. 3/5: Afebrile. No acute events overnight. Plan for tracheostomy and PEG placement this week. The patient continues on low dose fentanyl infusion.Cardizem PO was intiated yesterday, and Cardizem infusion was weaned off last night. 3/6 remained stable overnight tracheostomy planned tomorrow at 10 AM 3/8 tracheostomy yesterday PEG tube placement today 11/17 no acute issues overnight Pt Condition on Discharge: Stable Discharge Instructions DIET: Follow Instructions for: On Tube Feeding Activities you can perform: Continue Emeterio Dobbs MD Nov 17, 2016 16:03
== END 2016-11-17 19:05 | DRG 4 ==
LOC: NEPE 11:15 → NEDA 13:28 → HIMN 15:30
PROVIDERS: ADMIT Internal Medicine Critical Care Medicine; ATTEND Internal Medicine Critical Care Medicine
PROC: 5A1955Z Respiratory Ventilation, Greater than 96 Consecutive Hours (ICD-10-PCS; 2016-11-01)
PROC: 0BH17EZ Insertion of Endotracheal Airway into Trachea, Via Natural or Artificial Opening (ICD-10-PCS; 2016-11-01)
PROC: 02HV33Z Insertion of Infusion Device into Superior Vena Cava, Percutaneous Approach (ICD-10-PCS; 2016-11-03)
PROC: 0BH17EZ Insertion of Endotracheal Airway into Trachea, Via Natural or Artificial Opening (ICD-10-PCS; 2016-11-06)
PROC: 5A1955Z Respiratory Ventilation, Greater than 96 Consecutive Hours (ICD-10-PCS; 2016-11-06)
PROC: 0B968ZX Drainage of Right Lower Lobe Bronchus, Via Natural or Artificial Opening Endoscopic, Diagnostic (ICD-10-PCS; 2016-11-06)
PROC: 0BCB8ZZ Extirpation of Matter from Left Lower Lobe Bronchus, Via Natural or Artificial Opening Endoscopic (ICD-10-PCS; 2016-11-06)
PROC: 0BH17EZ Insertion of Endotracheal Airway into Trachea, Via Natural or Artificial Opening (ICD-10-PCS; 2016-11-12)
PROC: 5A1945Z Respiratory Ventilation, 24-96 Consecutive Hours (ICD-10-PCS; 2016-11-12)
PROC: 0B113F4 Bypass Trachea to Cutaneous with Tracheostomy Device, Percutaneous Approach (ICD-10-PCS; principal; 2016-11-15)
PROC: 5A1945Z Respiratory Ventilation, 24-96 Consecutive Hours (ICD-10-PCS; 2016-11-15)
PROC: 0DH63UZ Insertion of Feeding Device into Stomach, Percutaneous Approach (ICD-10-PCS; 2016-11-16)
DX: A41.9 Sepsis, unspecified organism (principal); J15.0 Pneumonia due to Klebsiella pneumoniae; J15.211 Pneumonia due to Methicillin susceptible Staphylococcus aureus; N17.9 Acute kidney failure, unspecified; E87.0 Hyperosmolality and hypernatremia; G92 Toxic encephalopathy; A04.7 Enterocolitis due to Clostridium difficile; L89.159 Pressure ulcer of sacral region, unspecified stage; J44.0 Chronic obstructive pulmonary disease with (acute) lower respiratory infection; J96.01 Acute respiratory failure with hypoxia; M62.82 Rhabdomyolysis; E87.2 Acidosis; I24.8 Other forms of acute ischemic heart disease; D69.6 Thrombocytopenia, unspecified; N18.3 Chronic kidney disease, stage 3 (moderate); E83.39 Other disorders of phosphorus metabolism; E11.22 Type 2 diabetes mellitus with diabetic chronic kidney disease; E11.65 Type 2 diabetes mellitus with hyperglycemia; G30.9 Alzheimer's disease, unspecified; F02.80 Dementia in other diseases classified elsewhere, unspecified severity, without behavioral disturbance, psychotic disturbance, mood disturbance, and anxiety; I12.9 Hypertensive chronic kidney disease with stage 1 through stage 4 chronic kidney disease, or unspecified chronic kidney disease; N40.0 Benign prostatic hyperplasia without lower urinary tract symptoms; R65.20 Severe sepsis without septic shock; E86.0 Dehydration; E87.6 Hypokalemia; E87.8 Other disorders of electrolyte and fluid balance, not elsewhere classified; Y95 Nosocomial condition; D64.9 Anemia, unspecified; F32.9 Major depressive disorder, single episode, unspecified; F41.9 Anxiety disorder, unspecified; R00.0 Tachycardia, unspecified; I48.91 Unspecified atrial fibrillation; I25.10 Atherosclerotic heart disease of native coronary artery without angina pectoris; G47.00 Insomnia, unspecified; R13.10 Dysphagia, unspecified; Z86.73 Personal history of transient ischemic attack (TIA), and cerebral infarction without residual deficits; Z95.5 Presence of coronary angioplasty implant and graft; Z87.891 Personal history of nicotine dependence; Z88.1 Allergy status to other antibiotic agents; Z88.0 Allergy status to penicillin; Z88.7 Allergy status to serum and vaccine; Z88.5 Allergy status to narcotic agent; Z88.8 Allergy status to other drugs, medicaments and biological substances; Z87.820 Personal history of traumatic brain injury
CPT/HCPCS: 31500; 31624; 36556; 36600; 51702; 70450; 70551; 71010; 74000; 74176; 76705; 76775; 76937; 80048; 80053; 80061; 80076; 80202; 81001; 82140; 82550; 82552; 82570; 82805; 82948; 83605; 83735; 83930; 83935; 84100; 84132; 84155; 84295; 84300; 84443; 84484; 85007; 85025; 85027; 85610; 85730; 86403; 87015; 87040; 87070; 87077; 87086; 87102; 87116; 87186; 87205; 87206; 87449; 87493; 87641; 87804; 88112; 88305; 89051; 93005; 93306; 94002; 94003; 94150; 94640; 95819; 96365; 96375; 99292; A7520; A7521; C9113; J0282; J0330; J0610; J0692; J0696; J1100; J1644; J1940; J2250; J2310; J2765; J2997; J3010; J3370; J3475; J3480; J7030; J7040; J7050; J7060; J7120; P9045; P9047

== ENCOUNTER 2017-06-03 21:43 | Emergency (ER) | payer MEDICARE, MEDICAID ==
[~2017-06-03] VITALS: Ht 182.9 cm; Wt 70.0 kg
[~2017-06-03 21:43] MED LIST changes: +ALBU0.08 NEB; -ALPR.25 PO; -BISA10R PR; +CINN500C PO; -CINN500C7 PO; +DIGE1CAP2 PO; -DIGECAP6 PO; +DONE10TA7 PO; -DUONI NEB; -FEXO3TAB PO; -FLEEENE3 PR; +FLEEENE3 RECTAL; -LISI-360 PO; +LISI10TA3 PO; -MAGN30S PO; -MELA3TAB23 PO; +MELA5TAB15 PO; +MILKSUS PO; -NORC10TA2 PO; +NUED20CA PO; -PROT40TA PO; +SERT-132 PO; -SERT25TA83 PO
[2017-06-03] MEDS ORDERED: DIATRIZOATE MEGLUM/DIATRIZOATE SOD 120 ML BTL (for RAD DIAG) G-TUBE ONE (21:44)
--- NOTE | 2017-06-03 22:17 | PD ---
HPI Chief Complaint: pulled out G-tube Time Seen by Provider: 21:56 Travel History International Travel<30 days: No Contact w/Intl Traveler<30days: No History of Present Illness HPI 86-year-old man, chronically ill, presents emergency department reportedly after he pulled out his G-tube. Chronically confused. No other complaints. History Past Medical History Narrative Medical Fall, UTI A. fib Chronic disease History of hypernatremia Diabetes Dementia, Alzheimer's type Depression Hypertension History of subdural History of BPH Social History Alcohol Use: No (UNABLE TO ASSESS) Tobacco Use: No (UNABLE TO ASSESS) Allergies-Medications (Allergen,Severity, Reaction): Coded Allergies: Fish Containing Products (Unverified Allergy, Severe, 04/25/17) levofloxacin (Unverified Allergy, Severe, 04/25/17) lorazepam (Unverified Allergy, Severe, 04/25/17) morphine (Unverified Allergy, Severe, 04/25/17) penicillin G (Unverified Allergy, Severe, 04/25/17) sulfamethoxazole (Unverified Allergy, Severe, hives, 04/25/17) trimethoprim (Unverified Allergy, Severe, hives, 04/25/17) hydrocortisone (Unverified Allergy, Unknown, UNKNOWN, 04/25/17) saccharin (Unverified Allergy, Unknown, UNKNOWN , 04/25/17) Reported Meds & Prescriptions Reported Meds & Active Scripts Active Reported Milk of Magnbabak Liq (Magnesium Hydroxide) 400 Mg/5 Ml Susp 30 Ml PO DAILY PRN Digestive Enzyme (Digestive Enzymes) 1 Cap Cap 1 Cap PO TID Albuterol Neb (Albuterol Sulfate) 2.5 Mg/3 Ml Neb 2.5 Mg NEB Q4HR NEB While awake Sertraline (Sertraline HCl) 50 Mg Tab 50 Mg PO BID Nuedexta 20-10 mg (Dextromethorphan HBr-Quinidine) 1 Cap Cap 1 Cap PO BID Donepezil 10 Mg Tab 10 Mg PO BID Melatonin 5 Mg Tab 3 Mg PO DAILY Lisinopril 10 Mg Tab 10 Mg PO DAILY Alprazolam 0.25 Mg Tab 0.25 Mg PO DAILY PRN Review of Systems ROS Limitations: Clinical Condition, Poor Historian Physical Exam Narrative GENERAL: Chronically ill-appearing 86-year-old man, nontoxic. SKIN: Focused skin assessment warm/dry. HEAD: Atraumatic. Normocephalic. NECK: Trachea midline. No JVD. CARDIOVASCULAR: Regular rate and rhythm. No murmur appreciated. RESPIRATORY: No accessory muscle use. Clear to auscultation. Breath sounds equal bilaterally. GASTROINTESTINAL: Abdomen flat and soft. G-tube site the upper abdomen. No bleeding. MUSCULOSKELETAL: No obvious deformities. Status post lower extremity amputation unilaterally. NEUROLOGICAL: Confused, somewhat contracted. Data Data Last Documented VS Vital Signs Date Time Temp Pulse Resp B/P (MAP) Pulse Ox O2 Delivery O2 Flow Rate FiO2 06/03/17 23:00 16 06/03/17 22:53 97.0 86 132/61 (84) 97 Orders Orders Tube, Feeding 3.5x12 Ea (06/03/17 22:04) Abdomen, Single View (06/03/17 ) MDM Medical Decision Making Medical Screen Exam Complete: Yes Emergency Medical Condition: Yes Differential Diagnosis G-tube removal, other Narrative Course Medical decision making 86-year-old man status post G-tube removal. Reportedly happened just prior to arrival. Masters catheter placed on ED arrival. We'll get G-tube. Review of records shows he had a 20 Belgian G-tube placed endoscopically back in November. Diagnosis Primary Impression: Gastrostomy tube dysfunction Additional Instructions: Follow-up with your primary doctor. G-tube is safe to use immediately. Disposition: 01 DISCHARGE HOME Condition: Stable Sam Ruggiero MD Jun 03, 2017 22:16
[2017-06-03 22:53] VITALS: BP 132/61; PULSE 86; RESP 16; TEMP 97; O2SAT 97
--- NOTE | 2017-06-03 23:31 | RADRPT ---
EXAM DATE/TIME: 06/03/2017 23:00 [facility] COMPARISON: CHEST SINGLE AP, November 12, 2016, 2:58. CHEST SINGLE AP, November 14, 2016, 4:34. CHEST SINGLE AP, 2016, 4:53. INDICATIONS : Peg tube placement. MEDICAL HISTORY : Congestive heart failure. Diabetes mellitus type II. Hypertension. SURGICAL HISTORY : Appendectomy. Prostatectomy. Carotid endarterectomy. Left leg amputation. ENCOUNTER: Initial ACUITY: 1 day PAIN SCORE: 0/10 LOCATION: abdomen FINDINGS: Single frontal view of the upper abdomen and lower chest after instillation of contrast through percu taneous tube. There is contrast seen in multiple loops of nondistended small bowel. No contrast see n in the gastric lumen. There is a 6 mm nodular density projected over the lower lateral right lung. Left lung is clear.. CONCLUSION: Contrast through percutaneous enteric tube demonstrates intraluminal contrast within the small bowel. Aneudy Wong MD on June 03, 2017 at 23:27 Board Certified Radiologist. This report was verified electronically.
[2017-06-04 04:22] VITALS: BP 130/88; PULSE 88; RESP 14; O2SAT 96
== END 2017-06-04 11:03 | disposition home or self-care (01) ==
LOC: NEPC 21:43 → NEPE 06-04 11:03
DX: K94.29 Other complications of gastrostomy (principal); R41.0 Disorientation, unspecified
CPT/HCPCS: 43760; 74000; 99284; Q9963

== ENCOUNTER 2017-07-31 17:21 | Inpatient (IN) | payer MEDICARE, MEDICAID ==
[2017-07-31] VITALS (13 sets, daily range): BP systolic 82–157; BP diastolic 48–88; PULSE 97–129; RESP 18–22; TEMP 97.9–101.7; O2SAT 93–100
[~2017-07-31] VITALS: Ht 175.3 cm; Wt 78.2 kg
[~2017-07-31 17:21] MED LIST changes: -CINN500C PO; -FLEEENE3 RECTAL; +MELA5 PO; -MELA5TAB15 PO
[2017-07-31] MEDS ORDERED: VANCOMYCIN INJ 1,000 MG in SODIUM CHLOR 0.9% 250 ML INJ 250 ML IV STA (17:32)
[2017-07-31] MEDS ORDERED: AZTREONAM INJ 2,000 MG in SODIUM CHLORIDE 0.9% INJ 100 ML IV STA (17:32)
--- NOTE | 2017-07-31 17:42 | PD ---
HPI Chief Complaint: Respiratory Distress Time Seen by Provider: 17:32 Travel History International Travel<30 days: No Contact w/Intl Traveler<30days: No Traveled to known affect area: No History of Present Illness HPI BREATHING FAST, TEMPERATURE AND ELEVATED HEART RATE SENT [place] [facility]. UNKNOWN HOW MANY DAYS IN THIS CONDITION....UNABLE TO OBTAIN MUCH MORE HISTORY DUE TO PATIENTS CONDITION PFSH Past Medical History Hx Anticoagulant Therapy: Yes Alzheimer's Disease: Yes Arthritis: Yes Anxiety: Yes Heart Rhythm Problems: Yes (remote afib) Cancer: No Cardiovascular Problems: Yes (ATHEROSCLEROTIC HEART DISEASE, A-FIB ) High Cholesterol: No Chest Pain: No Congestive Heart Failure: No Cerebrovascular Accident: No Dementia: Yes Diabetes: Yes (TYPE 2) Endocrine: No Gastrointestinal Disorders: No Genitourinary: Yes Hypertension: Yes Immune Disorder: No Implanted Vascular Access Dvce: No Kidney Stones: Yes (possible) Musculoskeletal: Yes Psychiatric: Yes (dementia) Reproductive: No Respiratory: No Immunizations Current: No Renal Failure: No Sickle Cell Disease: No Past Surgical History Abdominal Surgery: Yes (appendectomy) Appendectomy: Yes Ear Surgery: No Endocrine Surgery: No Eye Surgery: Yes (cataract) Genitourinary Surgery: Yes (TURP; ) Gynecologic Surgery: No Neurologic Surgery: Yes (on this admit; carotid artery endarcetomy) Oral Surgery: No Thoracic Surgery: No Other Surgery: Yes (appendectomy, TURP,RIGHT CAROTID ENDARTERECTOMY) Social History Alcohol Use: No (UNABLE TO ASSESS) Tobacco Use: No (UNABLE TO ASSESS) Substance Use: No Allergies-Medications (Allergen,Severity, Reaction): Coded Allergies: Fish Containing Products (Unverified Allergy, Severe, 04/25/17) levofloxacin (Unverified Allergy, Severe, 04/25/17) lorazepam (Unverified Allergy, Severe, 04/25/17) morphine (Unverified Allergy, Severe, 04/25/17) penicillin G (Unverified Allergy, Severe, 04/25/17) sulfamethoxazole (Unverified Allergy, Severe, hives, 04/25/17) trimethoprim (Unverified Allergy, Severe, hives, 04/25/17) acetaminophen (Verified Allergy, Mild, ITCHING, 07/31/17) hydrocortisone (Unverified Allergy, Unknown, UNKNOWN, 04/25/17) Reported Meds & Prescriptions Reported Meds & Active Scripts Active Reported Zoloft (Sertraline HCl) 25 Mg Tab 25 Mg PO BID Lisinopril 10 Mg Tab 10 Mg PO DAILY Donepezil 10 Mg Tab 10 Mg PO HS Neurontin (Gabapentin) 100 Mg Cap 100 Mg PO HS Melatonin 5 Mg Tab 5 Mg PO HS Minocycline (Minocycline HCl) 100 Mg Cap 100 Mg PO BID Cefdinir 300 Mg Cap 300 Mg PO BID Florajen Bifidoblend Capsule (Bifidobacter. Bifidum/B.longum) 460 Mg Capsule 3 Cap PEG BID Vitamin C (Ascorbic Acid) 250 Mg Tab 250 Mg PEG Zofran (Ondansetron HCl) 4 Mg Tab 4 Mg PO Q8HR PRN Saline Nasal [place] (Sodium Chloride) 0.65% [place] 2 [place] EACH NARE DIRECTED PRN Ferrous Sulfate 325 Mg (65 Mg Iron) Tablet 325 Mg PO TIDPC [Glucerna 1.5 ] 70 Ml PEG Ibuprofen 400 Mg Tab 400 Mg PO Q8H PRN Benadryl Allergy (Diphenhydramine HCl) 25 Mg Cap Ferrous Sulfate 325 Mg (65 Mg Iron) Tablet 325 Mg PO TIDPC Digestive Enzyme (Digestive Enzymes) 1 Cap Cap 1 Cap PO TID Albuterol Neb (Albuterol Sulfate) 2.5 Mg/3 Ml Neb 2.5 Mg NEB Q4HR NEB While awake Alprazolam 0.25 Mg Tab 0.25 Mg PO DAILY PRN Review of Systems Except as stated in HPI: all other systems reviewed are Neg General / Constitutional: Positive: Fever, Chills Cardiovascular: Positive: Tachycardia Respiratory: Positive: Shortness of Breath Physical Exam Narrative GENERAL: SKIN: Warm and dry. 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 Normocephalic. EYES: Pupils equal and round. No scleral icterus. No injection or drainage. ENT: No nasal bleeding or discharge. Mucous membranes pink and moist. NECK: Trachea midline. No JVD. CARDIOVASCULAR: TACHYCARDIC RESPIRATORY: TACHYPNEIC GASTROINTESTINAL: Abdomen soft, non-tender, nondistended. Hepatic and splenic margins not palpable. MUSCULOSKELETAL: Extremities without clubbing, cyanosis, or edema. No obvious deformities. NEUROLOGICAL: AMS, PSYCHIATRIC: Appropriate mood and affect; insight and judgment normal. Data Data Last Documented VS Vital Signs Date Time Temp Pulse Resp B/P (MAP) Pulse Ox O2 Delivery O2 Flow Rate FiO2 11/20/17 20:03 100.2 114 22 121/55 (77) 96 Non-Rebreather 15.00 Orders Orders Sepsis Workup Initiated (07/31/17 ) Electrocardiogram (07/31/17 17:32) Complete Blood Count With Diff (07/31/17 17:32) Comprehensive Metabolic Panel (07/31/17:32) Prothrombin Time / Inr (Pt) (07/31/17:32) Act Partial Throm Time (Ptt) (07/31/17:32) Lactic Acid Sepsis Protocol (07/31/17 17:32) Lipase (07/31/17:32) Troponin I (07/31/17:32) Urinalysis - C+S If Indicated (07/31/17:32) Influenzae A/B Antigen (07/31/17 17:32) Blood Culture (07/31/17:32) Chest, Single Ap (07/31/17:32) Blood Glucose (07/31/17:32) Ecg Monitoring (07/31/17:32) Iv Access Insert/Monitor (07/31/17 17:32) Oximetry (07/31/17 17:32) Oxygen Administration (07/31/17:32) Aztreonam Inj (Azactam Inj) (07/31/17 17:32) Vancomycin Inj (Vancomycin Inj) (07/31/17 17:32) Sodium Chlor 0.9% 1000 Ml Inj (Ns 1000 M (07/31/17 19:15) Ibuprofen Liq (Motrin Liq) (07/31/17 19:15) Sodium Chlor 0.9% 1000 Ml Inj (Ns 1000 M (07/31/17 19:30) Urine Culture (07/31/17 18:44) Sodium Chlor 0.9% 1000 Ml Inj (Ns 1000 M (07/31/17 20:00) Admit Order (Ed Use Only) (07/31/17 ) Bacteriology Teacher / Telemetry RONIT.Q8H (07/31/17 20:01) Vital Signs (Adult) Q4H (07/31/17 20:01) Diet Npo (08/01/17 Breakfast) Activity Bed Rest (07/31/17 20:01) Notify Dr: Other (07/31/17 20:01) Labs Laboratory Tests Test 07/31/17 18:12 07/31/17 18:17 07/31/17 18:44 07/31/17 19:35 Lactic Acid Level 8.1 mmol/L White Blood Count 9.3 TH/MM3 Red Blood Count 4.29 MIL/MM3 Hemoglobin 12.7 GM/DL Hematocrit 39.9 % Mean Corpuscular Volume 93.1 FL Mean Corpuscular Hemoglobin 29.7 PG Mean Corpuscular Hemoglobin Concent 31.9 % Red Cell Distribution Width 17.4 % Platelet Count 536 TH/MM3 Mean Platelet Volume 7.9 FL Neutrophils (%) (Auto) 90.1 % Lymphocytes (%) (Auto) 5.4 % Monocytes (%) (Auto) 3.9 % Eosinophils (%) (Auto) 0.2 % Basophils (%) (Auto) 0.4 % Neutrophils # (Auto) 8.4 TH/MM3 Lymphocytes # (Auto) 0.5 TH/MM3 Monocytes # (Auto) 0.4 TH/MM3 Eosinophils # (Auto) 0.0 TH/MM3 Basophils # (Auto) 0.0 TH/MM3 CBC Comment AUTO DIFF Differential Comment AUTO DIFF CONFIRMED Platelet Estimate HIGH Platelet Morphology Comment ENLARGED Blood Urea Nitrogen 33 MG/DL Creatinine 1.35 MG/DL Random Glucose 99 MG/DL Total Protein 7.7 GM/DL Albumin 2.2 GM/DL Calcium Level 8.5 MG/DL Alkaline Phosphatase 108 U/L Aspartate Amino Transf (AST/SGOT) 104 U/L Alanine Aminotransferase (ALT/SGPT) 44 U/L Total Bilirubin 0.5 MG/DL Sodium Level 138 MEQ/L Potassium Level 4.3 MEQ/L Chloride Level 105 MEQ/L Carbon Dioxide Level 16.5 MEQ/L Anion Gap 17 MEQ/L Estimat Glomerular Filtration Rate 50 ML/MIN Troponin I 0.35 NG/ML Lipase 88 U/L Urine Color YELLOW Urine Turbidity CLOUDY Urine pH 5.5 Urine Specific [place] 1.020 Urine Protein 100 mg/dL Urine Glucose (UA) NEG mg/dL Urine Ketones NEG mg/dL Urine Occult Blood LARGE Urine Nitrite NEG Urine Bilirubin NEG Urine Urobilinogen LESS THAN 2.0 MG/DL Urine Leukocyte Esterase LARGE Urine RBC /hpf Urine WBC /hpf Urine Squamous Epithelial Cells 2 /hpf Urine Amorphous Sediment OCC Urine Bacteria FEW /hpf Urine Hyaline Casts 15 /lpf Urine Mucus MANY /lpf Urine Yeast with Hyphae MANY Urine Yeast (Budding) FEW Microscopic Urinalysis Comment CATH-CULTURE IND Prothrombin Time 13.4 SEC Prothromb Time International Ratio 1.2 RATIO Activated Partial Thromboplast Time 28.9 SEC MDM Medical Decision Making Medical Screen Exam Complete: Yes Emergency Medical Condition: Yes Medical Record Reviewed: Yes Differential Diagnosis PNA V COPD V PTX V UTI Narrative Course PATIENT WAS EMPIRICALLY 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 Time to perform other separately billable procedures was not included in the critical care time. Sepsis Criteria SIRS Criteria (2 or more): Temp > 100.9 or < 96.8, Heart rate over 90, RR > 20 or PaCO2 < 32 Diagnosis Primary Impression: SEPSIS Saad Vincent MD Jul 31, 2017 17:42
[2017-07-31 19:03] LABS: ANION GAP 17 MEQ/L (5-15); AST (GOT) 104 U/L (15-37); AUTOMATED NEUTROPHIL # 8.4 TH/MM3 (1.8-7.7); BASOPHIL % 0.4 % (0.0-2.0); BICARBONATE 16.5 MEQ/L (21.0-32.0); BLOOD UREA NITROGEN 33 MG/DL (7-18); CHLORIDE 105 MEQ/L (98-107); EOSINOPHIL % 0.2 % (0.0-4.0); GLOMERULAR FILTRATION RATE 50 ML/MIN (>89); HEMATOCRIT 39.9 % (39.0-51.0); LYMPH % 5.4 % (9.0-44.0); LYMPHOCYTE # 0.5 TH/MM3 (1.0-4.8); MEAN CELL VOLUME 93.1 FL (80.0-100.0); MEAN CORPUSCULAR HEMOGLOBIN 29.7 PG (27.0-34.0); MEAN CORPUSCULAR HGB CONC 31.9 % (32.0-36.0); MONO % 3.9 % (0.0-8.0); NEUT % 90.1 % (16.0-70.0); PLATELET COUNT 536 TH/MM3 (150-450); POTASSIUM 4.3 MEQ/L (3.5-5.1); RED BLOOD COUNT 4.29 MIL/MM3 (4.50-5.90); RED CELL DISTRIBUTION WIDTH 17.4 % (11.6-17.2); SODIUM (NA) 138 MEQ/L (136-145); WHITE BLOOD COUNT 9.3 TH/MM3 (4.0-11.0)
[2017-07-31 19:04] LABS: ALKALINE PHOSPHATASE 108 U/L (45-117); ALT (GPT) 44 U/L (12-78); TOTAL BILIRUBIN ADULT 0.5 MG/DL (0.2-1.0)
[2017-07-31] MEDS ORDERED: SODIUM CHLOR 0.9% 1000 ML INJ 1,000 ML IV ONE ×3 (19:15→20:00)
[2017-07-31] MEDS ORDERED: IBUPROFEN SUSP 100 MG/5 ML UDC PO ONE (19:15)
--- NOTE | 2017-07-31 19:18 | PD ---
Data Data Last Documented VS Vital Signs Date Time Temp Pulse Resp B/P (MAP) Pulse Ox O2 Delivery O2 Flow Rate FiO2 07/31/17 20:03 100.2 114 22 121/55 (77) 96 Non-Rebreather 15.00 Orders Orders Sepsis Workup Initiated (07/31/17 ) Electrocardiogram (07/31/17 17:32) Complete Blood Count With Diff (07/31/17 17:32) Comprehensive Metabolic Panel (07/31/17 17:32) Prothrombin Time / Inr (Pt) (07/31/17 17:32) Act Partial Throm Time (Ptt) (07/31/17 17:32) Lactic Acid Sepsis Protocol (07/31/17 17:32) Lipase (07/31/17:32) Troponin I (07/31/17:32) Urinalysis - C+S If Indicated (07/31/17 17:32) Influenzae A/B Antigen (07/31/17 17:32) Blood Culture (07/31/17 17:32) Chest, Single Ap (07/31/17 17:32) Blood Glucose (07/31/17 17:32) Ecg Monitoring (07/31/17 17:32) Iv Access Insert/Monitor (07/31/17 17:32) Oximetry (07/31/17 17:32) Oxygen Administration (07/31/17 17:32) Aztreonam Inj (Azactam Inj) (07/31/17 17:32) Vancomycin Inj (Vancomycin Inj) (07/31/17 17:32) Sodium Chlor 0.9% 1000 Ml Inj (Ns 1000 M (07/31/17 19:15) Ibuprofen Liq (Motrin Liq) (07/31/17 19:15) Sodium Chlor 0.9% 1000 Ml Inj (Ns 1000 M (07/31/17 19:30) Urine Culture (07/31/17 18:44) Sodium Chlor 0.9% 1000 Ml Inj (Ns 1000 M (07/31/17 20:00) Admit Order (Ed Use Only) (07/31/17 ) Food Safety Officer / Telemetry RONIT.Q8H (07/31/17 20:01) Vital Signs (Adult) Q4H (07/31/17 20:01) Diet Npo (08/01/17 Breakfast) Activity Bed Rest (07/31/17 20:01) Notify Dr: Other (07/31/17 20:01) Labs Laboratory Tests Test 07/31/17 18:12 07/31/17 18:17 07/31/17 18:44 07/31/17 19:35 Lactic Acid Level 8.1 mmol/L White Blood Count 9.3 TH/MM3 Red Blood Count 4.29 MIL/MM3 Hemoglobin 12.7 GM/DL Hematocrit 39.9 % Mean Corpuscular Volume 93.1 FL Mean Corpuscular Hemoglobin 29.7 PG Mean Corpuscular Hemoglobin Concent 31.9 % Red Cell Distribution Width 17.4 % Platelet Count 536 TH/MM3 Mean Platelet Volume 7.9 FL Neutrophils (%) (Auto) 90.1 % Lymphocytes (%) (Auto) 5.4 % Monocytes (%) (Auto) 3.9 % Eosinophils (%) (Auto) 0.2 % Basophils (%) (Auto) 0.4 % Neutrophils # (Auto) 8.4 TH/MM3 Lymphocytes # (Auto) 0.5 TH/MM3 Monocytes # (Auto) 0.4 TH/MM3 Eosinophils # (Auto) 0.0 TH/MM3 Basophils # (Auto) 0.0 TH/MM3 CBC Comment AUTO DIFF Differential Comment AUTO DIFF CONFIRMED Platelet Estimate HIGH Platelet Morphology Comment ENLARGED Blood Urea Nitrogen 33 MG/DL Creatinine 1.35 MG/DL Random Glucose 99 MG/DL Total Protein 7.7 GM/DL Albumin 2.2 GM/DL Calcium Level 8.5 MG/DL Alkaline Phosphatase 108 U/L Aspartate Amino Transf (AST/SGOT) 104 U/L Alanine Aminotransferase (ALT/SGPT) 44 U/L Total Bilirubin 0.5 MG/DL Sodium Level 138 MEQ/L Potassium Level 4.3 MEQ/L Chloride Level 105 MEQ/L Carbon Dioxide Level 16.5 MEQ/L Anion Gap 17 MEQ/L Estimat Glomerular Filtration Rate 50 ML/MIN Troponin I 0.35 NG/ML Lipase 88 U/L Urine Color YELLOW Urine Turbidity CLOUDY Urine pH 5.5 Urine Specific [place] 1.020 Urine Protein 100 mg/dL Urine Glucose (UA) NEG mg/dL Urine Ketones NEG mg/dL Urine Occult Blood LARGE Urine Nitrite NEG Urine Bilirubin NEG Urine Urobilinogen LESS THAN 2.0 MG/DL Urine Leukocyte Esterase LARGE Urine RBC /hpf Urine WBC /hpf Urine Squamous Epithelial Cells 2 /hpf Urine Amorphous Sediment OCC Urine Bacteria FEW /hpf Urine Hyaline Casts 15 /lpf Urine Mucus MANY /lpf Urine Yeast with Hyphae MANY Urine Yeast (Budding) FEW Microscopic Urinalysis Comment CATH-CULTURE IND Prothrombin Time 13.4 SEC Prothromb Time International Ratio 1.2 RATIO Activated Partial Thromboplast Time 28.9 SEC MDM Medical Record Reviewed: Yes Supervised Visit with MAHESH: No Narrative Course Please review outgoing provider's note. History obtained by sign out and by conversation at bedside with patient's , who is is POA as well. Pt with low O2 sats earlier today, reported to have been in the 70s, tachycardia also observed. notes tube feeds, sometimes overnight, and aggressive by mouth feeds to help with nutrition. Possible aspiration is offered as a cause for desats and fever. Pt by records carries diagnosis of COPD however states he does not have COPD, similar explanation for diabetes. No oxygen required at [facility]. 2/2 dementia pt unable to provide meaningful responses to inquiries at bedside. Sepsis work up initiated upon arrival including aztreonam and vanco. CBC & BMP Diagram 07/31/17 18:17 Total Protein 7.7, Albumin 2.2 L, Calcium Level 8.5, Alkaline Phosphatase 108, Aspartate Amino Transf (AST/SGOT) 104 H, Alanine Aminotransferase (ALT/SGPT) 44 , Total Bilirubin 0.5 AG 17 Lactic 8.1 CXR: PNA R lung [place] [facility] [place] of [place] Lazo for treatment of septic shock. Vanco and Azactam started in ER. 3L NS bolus started. Critical Care Narrative Aggregate critical care time was 35 minutes. Time to perform other separately billable procedures was not included in the critical care time. My time did not include minutes spent treating any other patients simultaneously or on activities that did not directly contribute to the patient's treatment. The services I provided to this patient were to treat and/or prevent clinically significant deterioration that could result in: Cardiopulmonary arrest I provided critical care services requiring my management, as noted below: Chart data review, documentation time, medication orders and management, vital sign assessments/reviewing monitor data, ordering and reviewing lab tests, ordering and interpreting/reviewing x-rays and diagnostic studies, care of the patient and discussion of the patient with the admitting physicians. Sepsis Criteria SIRS Criteria (2 or more): Temp > 100.9 or < 96.8, Heart rate over 90 Severe Sepsis (+one): Lactate >2 Septic Shock Criteria: Lactic acid >=4 Diagnosis Primary Impression: Septic shock Additional Impressions: PNA (pneumonia) Qualified Codes: J18.9 - Pneumonia, unspecified organism UTI (urinary tract infection) Qualified Codes: N39.0 - Urinary tract infection, site not specified; R31.9 - Hematuria, unspecified NAYE (acute kidney injury) Admitting Information Admitting Physician Requests: Admit Joshua Apodaca MD Jul 31, 2017 19:18
[2017-07-31] MEDS ORDERED: FERR325T18 PO ×2 (19:34→20:30)
--- NOTE | 2017-07-31 19:40 | RADRPT ---
EXAM DATE/TIME: 07/31/2017 19:04 [facility] COMPARISON: CHEST SINGLE AP, November 16, 2016, 4:53. INDICATIONS : Fever. MEDICAL HISTORY : Hypertension. SURGICAL HISTORY : Appendectomy. Prostatectomy. Carotid endarterectomy. ENCOUNTER: Initial ACUITY: 1 day PAIN SCORE: Non-responsive. LOCATION: Bilateral chest FINDINGS: There is some motion artifact limiting evaluation of the lower lungs. There is some mild asymmetric opacity in the area of motion artifact and lower right lung; a focal infiltrate cannot be excluded. Both hemidiaphragms remain well delineated. The upper lungs are clear. The heart is normal size. CONCLUSION: Possible right midlung infiltrate. Recommend followup films. Aneudy Wong MD on July 31, 2017 at 19:33 Board Certified Radiologist. This report was verified electronically.
[2017-07-31 19:41] LABS: BACTERIA, URINE FEW /hpf; BLOOD, URINE LARGE (NEG); GLUCOSE,URINE NEG (NEG); HYALINE CAST, URINE 15 /lpf (RARE); KETONE, URINE NEG (NEG); MUCUS URINE MANY /lpf (OCC); NITRITE,URINE NEG (NEG); PH, URINE 5.5 (5.0-8.5); SQUAMOUS EPITHELIAL CELL URINE 2 /hpf (0-5); URINE COLOR YELLOW (YELLW/STRAW)
[2017-07-31 19:42] LABS: COMMENT (UR) CATH-CULTURE IND; CULTURE IF INDICATED CATH CULTURE IND
[2017-07-31 19:58] LABS: PLATELET ESTIMATE SMEAR HIGH (NORMAL); PLATELET MORPHOLOGY ENLARGED (NORMAL); SCAN/DIFF AUTO DIFF CONFIRMED
[2017-07-31 20:00] LABS: HEMO FLAGS AUTO DIFF
[2017-07-31 20:21] LABS: APTT (PATIENT) 28.9 SEC (24.3-30.1); INTERNATIONAL NORMALIZED RATIO 1.2 RATIO; PROTHROMBIN TIME - PATIENT 13.4 SEC (9.8-11.6)
[2017-07-31 20:29] LABS: LACTIC ACID GHOST NOT REPORTABLE
[2017-07-31] MEDS ORDERED: BENA25CA4 (20:30)
[2017-07-31] MEDS ORDERED: SALI0.653 EACH NARE (20:30)
[2017-07-31] MEDS ORDERED: [UNRECOGNIZED DRUG - CODE] PEG (20:30)
[2017-07-31] MEDS ORDERED: IBUP1TAB5 PO (20:30)
[2017-07-31] MEDS ORDERED: VITA250T3 PEG (20:30)
[2017-07-31] MEDS ORDERED: ZOFR4TAB PO (20:30)
[2017-07-31] MEDS ORDERED: GLUCERNA PEG (20:30)
--- NOTE | 2017-07-31 20:31 | HHI.HP ---
HPI Service Critical Care Medicine Primary Care Physician Unknown Admission Diagnosis Septic Shock; R Lung PNA Diagnosis: Travel History International Travel<30 Days: No Contact w/Intl Traveler <30 Da: No Traveled to Known Affected Are: No History of Present Illness 86-year-old male with past medical history of dementia, Parkinson's, bedridden, sacral decubitus ulcers, PAD with left AKA, tobacco abuse, BPH, GERD , PEG, prior tracheostomy that has subsequently been decannulated who presents to [facility] emergency department with respiratory distress. He is on a pured diet and gets supplemental bolus feeds at mealtime depending on how much that he takes by mouth. Today he did not have very much appetite, did not eat much, received a bolus feed. He then had an episode of vomiting and subsequently had tachypnea. He desaturated into the 70s on room air. He was placed on supplemental oxygen. He had rigors and fever and therefore was brought to [facility] emergency Department was where she was found to be in septic shock with multiorgan dysfunction. He has right middle lobe and right lower lobe pneumonia and urinary tract infection. Temperature is 100.6. Blood pressure is 82/49 with a lactic acid of 8.1. He is in acute kidney injury with creatinine 1.35. He has not had any diarrhea. He denies abdominal pain but has voluntary guarding on exam. (History from him is almost non existent, this is based on verbal and nonverbal cues interpreted by his ) He received vancomycin and aztreonam in the emergency department. He has received 3 L normal saline bolus. Hospitalized at [facility] in October 2016 with C. difficile and HCAP with respiratory failure. He was intubated and extubated several times and ultimately underwent tracheostomy 11/15/16 and PEG. He was recently hospitalized at [facility] 1-1/2 months ago related to infection of his sacral wound which has had multiple debridements. Reportedly has recently been on antibiotics for UTI. denies known ho MDRO Review of Systems ROS Limitations: Clinical Condition, Altered Mental Status Past Family Social History Allergies: Coded Allergies: Fish Containing Products (Unverified Allergy, Severe, 04/25/17) levofloxacin (Unverified Allergy, Severe, 04/25/17) lorazepam (Unverified Allergy, Severe, 04/25/17) morphine (Unverified Allergy, Severe, 04/25/17) penicillin G (Unverified Allergy, Severe, 04/25/17) sulfamethoxazole (Unverified Allergy, Severe, hives, 04/25/17) trimethoprim (Unverified Allergy, Severe, hives, 04/25/17) acetaminophen (Verified Allergy, Mild, ITCHING, 07/31/17) hydrocortisone (Unverified Allergy, Unknown, UNKNOWN, 04/25/17) Past Medical History Coronary artery disease with LA in 1997 with prior stents Parkinson's disease Dementia Paroxysmal atrial fibrillation Hypertension GERD with esophagitis Hyperglycemia associated with tube feeds Records indicate he has a history of COPD but his insisted he does not Iron deficiency anemia Vitamin D deficiency Constipation Left AKA Allergic rhinitis Sacral decubitus ulcers - Wound care by Dr. Benjamin [facility] Past Surgical History Appendectomy TURP Right carotid endarterectomy Multiple sacral debridements PEG Trach 10/2016 Left knee arthroscopy AKA Dr. Ellis Bilateral cataract surgery He is followed by a wound care physician, Dr. Benjamin Reported Medications Cefdinir 300 mg by mouth twice a day Minocycline 100 mg by mouth twice a day Donepezil 10 mill grams by mouth daily at bedtime Albuterol 2.5 mg nebs every 4 hours as needed Ferrous sulfate 325 mg by mouth 3 times a day Lisinopril 10 mg by mouth daily Ibuprofen 400 mg by mouth every 8 hours Gabapentin 100 mg by mouth daily at bedtime Zoloft 25 mill grams by mouth twice a day Xanax 0.25 mg by mouth daily Saline 2 sprays each Givens as needed for nasal congestion Zofran 4 mg by mouth every 8 hours as needed for nausea vomiting Banatrol plus powder 1 packet 3 times a day per PEG Probiotics Vitamin C 250 mg per PEG daily Digestive enzyme 1 3 times a day Melatonin 5 mg by mouth daily at bedtime Glucerna bolus feeds via PEG Family History Sister had diabetes Social History He previously smoked "for many years" and quit in 1997 No alcohol or illicit drug use He has been a resident of a jail since February 2015. When he was initially placed in the jail he was able to transfer but he has now not been able to transfer or walk for a couple of years. Resides at [facility] His states that at his baseline he recognizes her and will intimately tells jokes. He does not feed himself. He does not assist with dressing himself or with any self-care. Physical Exam Vital Signs Vital Signs Date Time Temp Pulse Resp B/P (MAP) Pulse Ox O2 Delivery O2 Flow Rate FiO2 07/31/17 20:20 100.0 108 22 121/85 (97) 100 Non-Rebreather 15.00 07/31/17 20:03 100.2 114 22 121/55 (77) 96 Non-Rebreather 15.00 07/31/17 19:36 100.6 121 22 82/49 (60) 95 Non-Rebreather 15.00 07/31/17 19:08 100.6 120 22 92/48 (63) 94 Non-Rebreather 15.00 07/31/17 18:59 18 98 Non-Rebreather 14.00 07/31/17 18:59 90 Non-Rebreather 14.00 07/31/17 17:43 128 18 Nasal Cannula 2.00 07/31/17 17:38 101.7 129 18 112/88 (96) Nasal Cannula 2.00 Physical Exam GENERAL: Elderly thin frail appearing male who is laying in ED stretcher, stiff and contracted. SKIN: Warm and dry. HEAD: Atraumatic. Normocephalic. EYES: Right pupil 1 mm and sluggishly reactive. Left pupil is about 3 mm and irregular, appears nonreactive. No scleral icterus. No injection or drainage. ENT: No nasal bleeding or discharge. Mucous membranes dry NECK: Trachea midline. No JVD. Right carotid endarterectomy scar well-healed. CARDIOVASCULAR: Irregular with sinus rhythm on the monitor with PACs and PVCs. Heart sounds are very distant. No murmur appreciated RESPIRATORY: Tachypneic on nonrebreather without accessory muscle use. Diminished by basilar with Rhonchi in right base. No wheeze or Rales. GASTROINTESTINAL: Abdomen scaphoid, PEG tube in place with site benign appearing , no drainage. He has voluntary guarding with palpation of right abdomen, no apparent rebound. Bowel sounds hypoactive. : Masters inserted with no urine output as yet MUSCULOSKELETAL: Extremities without clubbing, cyanosis. He is s/p L AKA. There is ulceration of stump with small spike of bone protruding through, no exudate. There is about 6x7 cm sacral decubitus wound stage IV s/p debridement with no fluctuance or surrounding cellulitis.There is ~2 cm ulcerations bilateral trochanters without drainage. NEUROLOGICAL: Awake, eyes open. Does not answer questions of orientation. Intermittently states "that's bull !".Upper extremities with increased flexor tone bilaterally, moves spontaneously. R lower extremity contracted. Laboratory Laboratory Tests Test 07/31/17 18:12 07/31/17 18:17 07/31/17 18:44 07/31/17 19:35 Lactic Acid Level 8.1 White Blood Count 9.3 Red Blood Count 4.29 Hemoglobin 12.7 Hematocrit 39.9 Mean Corpuscular Volume 93.1 Mean Corpuscular Hemoglobin 29.7 Mean Corpuscular Hemoglobin Concent 31.9 Red Cell Distribution Width 17.4 Platelet Count 536 Mean Platelet Volume 7.9 Neutrophils (%) (Auto) 90.1 Lymphocytes (%) (Auto) 5.4 Monocytes (%) (Auto) 3.9 Eosinophils (%) (Auto) 0.2 Basophils (%) (Auto) 0.4 Neutrophils # (Auto) 8.4 Lymphocytes # (Auto) 0.5 Monocytes # (Auto) 0.4 Eosinophils # (Auto) 0.0 Basophils # (Auto) 0.0 CBC Comment AUTO DIFF Differential Comment AUTO DIFF CONFIRMED Platelet Estimate HIGH Platelet Morphology Comment ENLARGED Blood Urea Nitrogen 33 Creatinine 1.35 Random Glucose 99 Total Protein 7.7 Albumin 2.2 Calcium Level 8.5 Alkaline Phosphatase 108 Aspartate Amino Transf (AST/SGOT) 104 Alanine Aminotransferase (ALT/SGPT) 44 Total Bilirubin 0.5 Sodium Level 138 Potassium Level 4.3 Chloride Level 105 Carbon Dioxide Level 16.5 Anion Gap 17 Estimat Glomerular Filtration Rate 50 Troponin I 0.35 Lipase 88 Urine Color YELLOW Urine Turbidity CLOUDY Urine pH 5.5 Urine Specific [place] 1.020 Urine Protein 100 Urine Glucose (UA) NEG Urine Ketones NEG Urine Occult Blood LARGE Urine Nitrite NEG Urine Bilirubin NEG Urine Urobilinogen LESS THAN 2.0 Urine Leukocyte Esterase LARGE Urine RBC Urine WBC Urine Squamous Epithelial Cells 2 Urine Amorphous Sediment OCC Urine Bacteria FEW Urine Hyaline Casts 15 Urine Mucus MANY Urine Yeast with Hyphae MANY Urine Yeast (Budding) FEW Microscopic Urinalysis Comment CATH-CULTURE IND Prothrombin Time 13.4 Prothromb Time International Ratio 1.2 Activated Partial Thromboplast Time 28.9 Date/Time Source Procedure Growth Status 07/31/17 18:17 Blood Peripheral Aerobic Blood Culture Pending Received 07/31/17 18:17 Blood Peripheral Anaerobic Blood Culture Pending Received 07/31/17 19:35 Nasal Washing Influenza Types A,B Antigen (JAKOB) - Final NEGATIVE FOR FLU A AND B ANTIGEN.... Complete 07/31/17 18:44 Urine Catheterized Urine Urine Culture Pending Received Result Diagram: 07/31/17 1817 07/31/17 1817 Imaging Last 24 hours Impressions Chest X-Ray 07/31/17 1732 Signed Impressions: Service Date/Time: Monday, July 31, 2017 19:04 - CONCLUSION: Possible right midlung infiltrate. Recommend followup films. Aneudy Wong MD Septic Shock Reassessment Heart: Irregular Lungs: Course Skin: Warm, Dry Peripheral Pulses: Weak Right Radial Weak Left Radial Capillary Refill: Sluggish Caprini VTE Risk Assessment Caprini VTE Risk Assessment: Mod/High Risk (score >= 2) Caprini Risk Assessment Model Point Value = 1 Point Value = 2 Point Value = 3 Point Value = 5 Age 41-60 Minor surgery BMI > 25 kg/m2 Swollen legs Varicose veins or History of unexplained or recurrent spontaneous Oral contraceptives or hormone replacement Sepsis (< 1 month) Serious lung disease, including pneumonia (< 1 month) Abnormal pulmonary function Acute myocardial infarction Congestive heart failure (< 1 month) History of inflammatory bowel disease Medical patient at bed rest Age 61-74 Arthroscopic surgery Major open surgery (> 45 min) Laparoscopic surgery (> 45 min) Malignancy Confined to bed (> 72 hours) Immobilizing plaster cast Central venous access Age >= 75 History of VTE Family history of VTE Factor V Leiden Prothrombin [id number] Lupus anticoagulant Anticardiolipin antibodies Elevated serum homocysteine Heparin-induced thrombocytopenia Other congenital or acquired thrombophilia Stroke (< 1 month) Elective arthroplasty Hip, pelvis, or leg fracture Acute spinal cord injury (< 1 month) Prophylaxis Regimen Total Risk Factor Score Risk Level Prophylaxis Regimen 0-1 Low Early ambulation 2 Moderate Order ONE of the following: *Sequential Compression Device (SCD) *Heparin 5000 units SQ BID 3-4 Higher Order ONE of the following medications: *Heparin 5000 units SQ TID *Enoxaparin/Lovenox 40 mg SQ daily (WT < 150 kg, CrCl > 30 mL/min) *Enoxaparin/Lovenox 30 mg SQ daily (WT < 150 kg, CrCl > 10-29 mL/min) *Enoxaparin/Lovenox 30 mg SQ BID (WT < 150 kg, CrCl > 30 mL/min) AND/OR *Sequential Compression Device (SCD) 5 or more Highest Order ONE of the following medications: *Heparin 5000 units SQ TID (Preferred with Epidurals) *Enoxaparin/Lovenox 40 mg SQ daily (WT < 150 kg, CrCl > 30 mL/min) *Enoxaparin/Lovenox 30 mg SQ daily (WT < 150 kg, CrCl > 10-29 mL/min) *Enoxaparin/Lovenox 30 mg SQ BID (WT < 150 kg, CrCl > 30 mL/min) AND *Sequential Compression Device (SCD) Assessment and Plan Problem List: (1) History of lucien hole surgery ICD Code: Z98.89 - History of lucien hole surgery Status: Chronic (2) Septic shock ICD Code: A41.9 - Sepsis, unspecified organism; R65.21 - Severe sepsis with septic shock Status: Acute (3) UTI (urinary tract infection) ICD Code: N39.0 - UTI (urinary tract infection) Status: Acute (4) Dementia ICD Code: F03.90 - Dementia Status: Chronic (5) HTN (hypertension) ICD Code: I10 - HTN (hypertension) Status: Chronic (6) CKD (chronic kidney disease), stage III ICD Code: N18.3 - CKD (chronic kidney disease), stage III Status: Chronic (7) HCAP (healthcare-associated pneumonia) ICD Code: J18.9 - Pneumonia, unspecified organism Status: Acute (8) Decubital ulcer ICD Code: L89.90 - Pressure ulcer of unspecified site, unspecified stage Status: Chronic (9) S/P AKA (above knee amputation) unilateral ICD Code: Z89.619 - Acquired absence of unspecified leg above knee (10) History of BPH ICD Code: Z87.438 - History of BPH Status: Chronic (11) CAD (coronary artery disease) ICD Code: I25.10 - Atherosclerotic heart disease of [place] coronary artery without angina pectoris Status: Chronic (12) Bed confinement status ICD Code: Z74.01 - Bed confinement status Status: Chronic (13) Dysphagia ICD Code: R13.10 - Dysphagia, unspecified Status: Chronic Assessment and Plan NEURO: Acute toxic metabolic encephalopathy overlying Dementia Parkinson's disease Bedridden with contractures H/o R subdural with lucien hole and SDH evacuation 04/[address] Sloan h/o R CEA Continue donepezil 10 mg by mouth daily at bedtime Hold sedative/non essential medications but he is chronically on melatonin 5 mg daily at bedtime, Xanax 0.25 mg daily, Zoloft 25 twice a day PT RESP: Respiratory distress with acute hypoxemia Healthcare associated pneumonia versus aspiration History of tobacco abuse Small right pleural effusion Prior tracheostomy s/p decannulation DuoNeb every 6 hours. Albuterol every 2 hours as needed. Chest x-ray demonstrates right lower lobe infiltrate. This is also seen on the CT abdomen. Antibiotics as per below CV: Coronary artery disease with prior stents Essential hypertension Paroxysmal atrial fibrillation Septic shock Lactic acidemia PAD Hold lisinopril due to hypotension and NAYE He is not chronically anticoagulated for A. fib Received 3 L normal saline bolus in the emergency department here. Significant metabolic acidosis with bicarbonate of 15 and base deficit of 10. 0.45 NaCl with 75 mEq of bicarbonate 125 mL per hour GI: Dysphagia Colitis Diverticulosis Loose stools On pured diet at baseline. Nothing by mouth. Has PEG for supplemental feeds. Will hold tube feeds for now. Lipase negative. Obtained CT abdomen and pelvis which demonstrated colitis descending colon. Mesenteric ischemia is a consideration. Will treat supportively with fluid resuscitation and abx. Overall prognosis poor and does not appear to be an operative candidate. FEN/RENAL: Acute kidney injury BPH s/p TURP No hydronephrosis noted on CT scan. Fluid resuscitation as per above. Insert Masters which is necessary to monitor urine output as marker of organ perfusion in the setting of septic shock and renal failure. ID: HCAP versus aspiration UTI/cystitis - u/a with many yeast. Followup culture. Diflucan 100 mg IV daily , adjusted for renal function. Sacral and hip decubitus ulcers present on admission Influenza negative Check urine legionella and pneumococcal antigen Follow-up urine and blood cultures. Obtain sputum culture Vancomycin pharmacy dosing. Calculated creatinine clearance is 37. Aztreonam 2 g IV every 8 hours and adjust if creatinine clearance drops below 30. (PCN allergy) Flagyl 500 mg IV every 8 hours for anaerobic coverage. MSK: S/p L AKA - stump with poor healing bone protrusion. states she has been told before he was not an operative candidate for revision of the wound, however perhaps could yaredlouieur at bedside? Patient known to Dr. Ellis who performed surgery, so will consult ortho for recommendations. HEME: Chronic iron deficiency anemia Reactive thrombocytosis Continue Ferrous sulfate 325 mill grams by mouth 3 times a day ENDO: Hyperglycemia associated with tube feed administration Monitor bedside glucose every 6 hours and initiate low-dose insulin sliding scale as indicated. PROPH: Heparin subcutaneous for DVT prophylaxis. Protonix 40 mg IV daily for stress ulcer prophylaxis. ACCESS: Has peripheral IV. May require central line, discussed with . Patient is critically ill with septic shock and multiorgan dysfunction who is at risk for further decompensation or . states he has a living will and that she is his healthcare surrogate. She states that he had stated that he wanted to be FULL CODE. She states she would place consideration to change of code status if his condition worsened but she states she feels he has "rallied" since when he was initially admitted and that he appears to still want to fight. Discussed with ED physician and bedside aged or disabled care worker time 60 minutes exclusive separately billable procedures. Problem Qualifiers (1) UTI (urinary tract infection): Qualified Codes: N39.0 - Urinary tract infection, site not specified; R31.9 - Hematuria, unspecified (2) Dementia: (3) HTN (hypertension): Qualified Codes: I10 - Essential (primary) hypertension Jasmin Lazo MD Jul 31, 2017 20:31
[2017-07-31] MEDS ORDERED: MELA5 PO (20:34)
[2017-07-31] MEDS ORDERED: NEUR100C PO (20:34)
[2017-07-31] MEDS ORDERED: ZOLO50TA PO (20:34)
[2017-07-31] MEDS ORDERED: DONE10TA7 PO (20:34)
[2017-07-31] MEDS ORDERED: LISI10TA3 PO (20:34)
[2017-07-31] MEDS ORDERED: MINO100 PO (20:34)
[2017-07-31] MEDS ORDERED: CEFD300C PO (20:34)
[2017-07-31] MEDS ORDERED: ZOLO25TA PO (20:34)
[2017-07-31] MEDS ORDERED: [UNRECOGNIZED DRUG - OTHER] PEG (20:35)
[2017-07-31] MEDS ORDERED: SODIUM CHLOR 0.9% 1000 ML INJ 1,000 ML IV SCH (21:08)
[2017-07-31] MEDS ORDERED: MISCELLANEOUS NURSING INFORMATION XX SCH (21:15)
[2017-07-31] MEDS ORDERED: ONDANSETRON HCL 4 MG/2 ML VIAL IV PUSH PRN (21:15)
[2017-07-31] MEDS ORDERED: MAGNESIUM HYDROXIDE SUSP 30 ML CUP PO PRN (21:15)
[2017-07-31] MEDS ORDERED: BISACODYL 10 MG SUPP RECTAL PRN (21:15)
[2017-07-31] MEDS ORDERED: DIATRIZOATE MEGLUM/DIATRIZOATE SOD 9 ML CUP PO ONE (21:15)
[2017-07-31] MEDS ORDERED: NOREPINEPHRINE-DEXTROSE DRIP 250 ML IV PRN (21:15)
[2017-07-31] MEDS ORDERED: Vancomycin Consult Pharmacy 1 EA OTHER SCH (21:15)
[2017-07-31] MEDS ORDERED: RESP: ALBUTEROL 2.5 MG/3 ML NEB (PRN) INH (21:15)
[2017-07-31] MEDS ORDERED: SENNOSIDES 8.6 MG TAB PO PRN (21:15)
[2017-07-31] MEDS ORDERED: CHLORHEXIDINE GLUCONATE 2 % 1 PACK (2 CLOTHS) TOP PRN (21:15)
[2017-07-31] MEDS ORDERED: TERBUTALINE INJ 1 MG/ML AMP SQ PRN (21:15)
[2017-07-31] MEDS ORDERED: SODIUM CHLORIDE 0.9% FLUSH 10 ML FLUSH IV FLUSH PRN (21:15)
[2017-07-31] MEDS ORDERED: LACTULOSE SYRUP 20 GM/30 ML CUP PO PRN (21:15)
[2017-07-31] MEDS ORDERED: RESP: ALBUTEROL 2.5 MG/IPRATROPIUM 0.5 MG NEB (SCH) INH (22:00)
[2017-07-31] MEDS: HEPARIN SODIUM - SQ 10,000 UNITS/ML VIAL SQ SCH (22:10)
[2017-07-31] MEDS ORDERED: IOHEXOL 350 MG/ML 10 ML VIAL (for RAD DIAG) IVCONTRAST ONE (22:54)
--- NOTE | 2017-07-31 23:22 | RADRPT ---
EXAM DATE/TIME: 07/31/2017 22:53 [facility] COMPARISON: CT ABDOMEN & PELVIS W/O CONTRAST, November 01, 2016, 15:12. INDICATIONS : Abdominal pain. IV CONTRAST: 90 cc Omnipaque 350 (iohexol) IV ORAL CONTRAST: Prescribed oral contrast ingested. RADIATION DOSE: 10.77 CTDIvol (mGy) MEDICAL HISTORY : Myocardial infarction. Cardiovascular disease Benign prostatic hyperplasia, (BPH)Chronic kidney disea se. Renal calculi. Alzheimers. Diabetes. SURGICAL HISTORY : Appendectomy. Cardiac stent. Peg tube. ENCOUNTER: Initial ACUITY: 1 day PAIN SCALE: Non-responsive LOCATION: Bilateral abdomen TECHNIQUE: Volumetric scanning of the abdomen and pelvis was performed. Using automated exposure control and ad justment of the mA and/or kV according to patient size, radiation dose was kept as low as reasonably achievable to obtain optimal diagnostic quality images. DICOM format image data is available electro nically for review and comparison. FINDINGS: The liver, spleen, pancreas and adrenal glands are within normal limits. Vascular calcification again seen in the kidneys. There is mild atrophy on the left. No hydronephrosis or perceptible stone. Urin yulia bladder is decompressed with a Masters catheter. Bladder wall appears thickened. Mild wall thickening and fluid seen in the left side of the colon. There is sigmoid colon diverticulo sis but I don't see focal diverticulitis. There is no bowel obstruction. No free fluid or free air. There is patchy consolidation in the visualized right lower lobe. Small right and tiny left pleural e ffusions are also seen. PEG tube has its tip in the lumen of the stomach. CONCLUSION: 1. CT suggests mild left-sided colitis in the proper clinical setting. No obstruction, perforation or abscess. 2. Thick waledl urinary bladder. Masters catheter present. 3. Right base infiltrate and small right, tiny left pleural effusions. 1. Arvind Márquez MD on July 31, 2017 at 23:16 Board Certified Radiologist. This report was verified electronically.
[2017-08-01] VITALS (15 sets, daily range): BP systolic 89–127; BP diastolic 49–57; PULSE 90–143; RESP 20–28; TEMP 97.2–99.2; O2SAT 96–100
[2017-08-01 00:38] LABS: BLOOD GAS BASE EXCESS -10.3 mmol/L (-2-2); BLOOD GAS CARBOXYHEMOGLOBIN 0.7 % (0-4); BLOOD GAS HCO3 15 mmol/L (22-26); BLOOD GAS O2 HGB SATURATION 88 % (90-100); BLOOD GAS OXYGEN CONTENT 12.1 Vol % (12.0-20.0); BLOOD GAS PCO2 30 mmHg (38-42); BLOOD GAS PO2 63 mmHg (61-120); BLOOD GAS TOTAL HGB 9.7 G/DL (12.0-16.0); CRITICAL VALUE YES; TEMP CORR TO 98.6
[2017-08-01 00:39] LABS: DRAW SITE RT BRACHIAL; FIO2 50 %; LITER FLOW 7 L/M; NUMBER OF ARTERIAL PUNCTURES 1; OXYGEN DEVICE Venti Mask; STAT YES
[2017-08-01 02:28] LABS: LACTIC ACID GHOST NOT REPORTABLE
[2017-08-01] MEDS: INSULIN ASPART SUPPLEMENTAL SCALE SQ SCH ×4 (03:15→21:15)
[2017-08-01] MEDS ORDERED: GLUCAGON 1 MG/ML VIAL OTHER PRN (03:15)
[2017-08-01] MEDS: RESP: ALBUTEROL 2.5 MG/IPRATROPIUM 0.5 MG NEB (SCH) NEB ×4 (03:36→19:37)
[2017-08-01] MEDS: CHLORHEXIDINE GLUCONATE 2 % 1 PACK (2 CLOTHS) TOP SCH (04:00)
[2017-08-01 04:26] LABS: AUTOMATED NEUTROPHIL # 8.1 TH/MM3 (1.8-7.7); BASOPHIL % 0.2 % (0.0-2.0); EOSINOPHIL % 0.1 % (0.0-4.0); HEMATOCRIT 29.4 % (39.0-51.0); HEMO FLAGS DIFF FINAL; LYMPH % 8.1 % (9.0-44.0); LYMPHOCYTE # 0.7 TH/MM3 (1.0-4.8); MEAN CELL VOLUME 92.3 FL (80.0-100.0); MEAN CORPUSCULAR HEMOGLOBIN 29.2 PG (27.0-34.0); MEAN CORPUSCULAR HGB CONC 31.6 % (32.0-36.0); MONO % 3.5 % (0.0-8.0); NEUT % 88.1 % (16.0-70.0); PLATELET COUNT 359 TH/MM3 (150-450); RED BLOOD COUNT 3.19 MIL/MM3 (4.50-5.90); RED CELL DISTRIBUTION WIDTH 17.4 % (11.6-17.2); WHITE BLOOD COUNT 9.2 TH/MM3 (4.0-11.0)
[2017-08-01] MEDS: AZTREONAM INJ 2,000 MG in SODIUM CHLORIDE 0.9% INJ 100 ML IV SCH ×3 (04:43→21:01)
[2017-08-01] MEDS: metroNIDAZOLE 500 MG INJ 100 ML IV SCH ×3 (04:43→15:29)
[2017-08-01] MEDS: SODIUM BICARBONATE 8.4% INJ 75 MEQ in SODIUM CHLOR 0.45% 1000 ML INJ 1,000 ML IV SCH ×3 (04:44→20:17)
[2017-08-01 04:51] LABS: BICARBONATE 18.7 MEQ/L (21.0-32.0); MAGNESIUM 1.9 MG/DL (1.5-2.5); POTASSIUM 3.6 MEQ/L (3.5-5.1); TOTAL BILIRUBIN ADULT 0.2 MG/DL (0.2-1.0)
[2017-08-01] MEDS: FLUCONAZOLE 100 MG PREMIX BAG 50 ML IV SCH (05:32)
--- NOTE | 2017-08-01 07:45 | HHI.CCPN ---
Subjective Remarks/Hospital Course 86-year-old male with past medical history of dementia, Parkinson's, bedridden, sacral decubitus ulcers, PAD with left AKA, tobacco abuse, BPH, GERD , PEG, prior tracheostomy that has subsequently been decannulated who presents to [facility] emergency department with respiratory distress. He is on a pured diet and gets supplemental bolus feeds at mealtime depending on how much that he takes by mouth. Today he did not have very much appetite, did not eat much, received a bolus feed. He then had an episode of vomiting and subsequently had tachypnea. He desaturated into the 70s on room air. He was placed on supplemental oxygen. He had rigors and fever and therefore was brought to [facility] emergency Department was where she was found to be in septic shock with multiorgan dysfunction. He has right middle lobe and right lower lobe pneumonia and urinary tract infection. Temperature is 100.6. Blood pressure is 82/49 with a lactic acid of 8.1. He is in acute kidney injury with creatinine 1.35. He has not had any diarrhea. He denies abdominal pain but has voluntary guarding on exam. (History from him is almost non existent, this is based on verbal and nonverbal cues interpreted by his ) He received vancomycin and aztreonam in the emergency department. He has received 3 L normal saline bolus. Hospitalized at [facility] in October 2016 with C. difficile and HCAP with respiratory failure. He was intubated and extubated several times and ultimately underwent tracheostomy 11/15/16 and PEG. He was recently hospitalized at [facility] 1-1/2 months ago related to infection of his sacral wound which has had multiple debridements. Reportedly has recently been on antibiotics for UTI. denies known ho MDRO. Subjective: 08/01: Tmax 99.1. Patient alert to name only, denies pain. O2 requirements decreased currently on Ventimask at 40%. Patient having multiple loose bowel movements, C. difficile PCR pending. Objective Vital Signs Date Time Temp Pulse Resp B/P (MAP) Pulse Ox O2 Delivery O2 Flow Rate FiO2 08/01/17 06:00 97 08/01/17 04:00 98.0 20 89/49 (62) 99 07/31/17 23:15 Venturi Mask 6.00 50 Intake and Output 08/01/17 08/01/17 08/02/17 08:00 16:00 00:00 Intake Total 460 ml Output Total 300 ml Balance 160 ml Result Diagram: 08/01/17 0350 08/01/17 0350 Other Results Microbiology Date/Time Source Procedure Growth Status 07/31/17 19:35 Nasal Washing Influenza Types A,B Antigen (JAKOB) - Final NEGATIVE FOR FLU A AND B ANTIGEN.... Complete Laboratory Tests Test 08/01/17 00:28 Blood Gas Puncture Site RT BRACHIAL Blood Gas Patient Temperature 98.6 Blood Gas HCO3 15 mmol/L (22-26) Blood Gas Base Excess -10.3 mmol/L (-2-2) Blood Gas Oxygen Saturation 88 % (90-100) Arterial Blood pH 7.31 (7.380-7.420) Arterial Blood Partial Pressure CO2 30 mmHg (38-42) Arterial Blood Partial Pressure O2 63 mmHg (61-120) Arterial Blood Oxygen Content 12.1 Vol % (12.0-20.0) Arterial Blood Carboxyhemoglobin 0.7 % (0-4) Arterial Blood Methemoglobin 1.0 % (0-2) Blood Gas Hemoglobin 9.7 G/DL (12.0-16.0) Oxygen Delivery Device Venti Mask Blood Gas Liter Flow 7 L/M Blood Gas Inspired Oxygen 50 % Imaging Last Impressions Chest X-Ray 07/31/171731 Signed Impressions: Service Date/Time: Monday, July 31, 2017 19:04 - CONCLUSION: Possible right midlung infiltrate. Recommend followup films. Aneudy Wong MD Abdomen/Pelvis CT 07/31/17 0000 Signed Impressions: Service Date/Time: Monday, July 31, 2017 22:53 - CONCLUSION: 1. CT suggests mild left-sided colitis in the proper clinical setting. No obstruction , perforation or abscess. 2. Thick waledl urinary bladder. Masters catheter present. 3. Right base infiltrate and small right, tiny left pleural effusions. 1. Arvind Márquez MD Last 24 hours Impressions Chest X-Ray 07/31/171731 Signed Impressions: Service Date/Time: Monday, July 31, 2017 19:04 - CONCLUSION: Possible right midlung infiltrate. Recommend followup films. Aneudy Wong MD Objective Remarks GENERAL: Elderly thin frail chronically ill appearing male with contracture SKIN: Warm and dry. Multiple wound openings to include sacral, bilateral greater trochanters and bone protrusion left AKA HEAD: Atraumatic. Normocephalic. EYES: Right pupil 1 mm and sluggishly reactive. Left pupil is about 3 mm, aniscoria, appears nonreactive. No scleral icterus. No injection or drainage. ENT: No nasal bleeding or discharge. Mucous membranes dry NECK: Trachea midline. No JVD. Right carotid endarterectomy scar well-healed. CARDIOVASCULAR: Irregular with sinus rhythm on the monitor with PACs and multifocal PVCs. Heart sounds are very distant. No murmur appreciated RESPIRATORY: Bilateral chest excursion. No accessory muscle use. Diminished by basilar with Rhonchi in right base. No wheeze or Rales. GASTROINTESTINAL: Abdomen scaphoid, PEG tube in place with site benign appearing , no drainage. He has voluntary guarding with palpation of right abdomen, no apparent rebound. Bowel sounds hypoactive. : Masters rich urine MUSCULOSKELETAL: Extremities without clubbing, cyanosis. He is s/p L AKA. There is ulceration of stump with small spike of bone protruding through, no exudate. There is about 6x7 cm sacral decubitus wound stage IV s/p debridement with no fluctuance or surrounding cellulitis.There is ~2 cm ulcerations bilateral trochanters without drainage. NEUROLOGICAL: Awake and alert.Responds appropriately to name only does not know where he is currently .Upper extremities with increased flexor tone bilaterally, moves spontaneously. R lower extremity contracted. Urinary Catheter: Yes (PREEXISTING/ Replaced on admission, UTI on admission) A/P Problem List: (1) History of lucien hole surgery ICD Code: Z98.89 - History of lucien hole surgery Status: Chronic (2) Septic shock ICD Code: A41.9 - Sepsis, unspecified organism; R65.21 - Severe sepsis with septic shock Status: Acute (3) UTI (urinary tract infection) ICD Code: N39.0 - UTI (urinary tract infection) Status: Acute (4) Dementia ICD Code: F03.90 - Dementia Status: Chronic (5) HTN (hypertension) ICD Code: I10 - HTN (hypertension) Status: Chronic (6) CKD (chronic kidney disease), stage III ICD Code: N18.3 - CKD (chronic kidney disease), stage III Status: Chronic (7) HCAP (healthcare-associated pneumonia) ICD Code: J18.9 - Pneumonia, unspecified organism Status: Acute (8) Decubital ulcer ICD Code: L89.90 - Pressure ulcer of unspecified site, unspecified stage Status: Chronic (9) S/P AKA (above knee amputation) unilateral ICD Code: Z89.619 - Acquired absence of unspecified leg above knee (10) History of BPH ICD Code: Z87.438 - History of BPH Status: Chronic (11) CAD (coronary artery disease) ICD Code: I25.10 - Atherosclerotic heart disease of [place] coronary artery without angina pectoris Status: Chronic (12) Bed confinement status ICD Code: Z74.01 - Bed confinement status Status: Chronic (13) Dysphagia ICD Code: R13.10 - Dysphagia, unspecified Status: Chronic Assessment and Plan NEURO: Acute toxic metabolic encephalopathy overlying Dementia Parkinson's disease Bedridden with contractures H/O R subdural with lucien hole and SDH evacuation 04/[address] Sloan H/O R CEA Continue donepezil 10 mg by mouth daily at bedtime Hold sedative/non essential medications but he is chronically on melatonin 5 mg daily at bedtime, Xanax 0.25 mg daily, Zoloft 25 twice a day RESP: Respiratory distress with acute hypoxemia Healthcare associated pneumonia versus aspiration History of tobacco abuse Small right pleural effusion Prior tracheostomy s/p decannulation DuoNeb every 6 hours. Albuterol every 2 hours as needed. Chest x-ray demonstrates right lower lobe infiltrate. This is also seen on the CT abdomen. Antibiotics as per below CV: Coronary artery disease with prior stents Essential hypertension Paroxysmal atrial fibrillation Septic shock Lactic acidemia PAD Hold lisinopril due to hypotension and NAYE He is not chronically anticoagulated for A. fib Received 3 L normal saline bolus in the ED 07/31. Significant metabolic acidosis with bicarbonate of 15 and base deficit of 10. 0.45 NaCl with 75 mEq of bicarbonate 125 mL per hour GI: Dysphagia Colitis Diverticulosis Loose stools On pured diet at baseline. Nothing by mouth. Has PEG for supplemental feeds. Will hold tube feeds for now. Lipase negative. Obtained CT abdomen and pelvis which demonstrated colitis descending colon. Mesenteric ischemia is a consideration. Will treat supportively with fluid resuscitation and abx. Overall prognosis poor and does not appear to be an operative candidate. FEN/RENAL: Acute kidney injury BPH s/p TURP No hydronephrosis noted on CT scan. Fluid resuscitation as per above. Insert Masters which is necessary to monitor urine output as marker of organ perfusion in the setting of septic shock and renal failure, and multiple open wounds ID: HCAP versus aspiration UTI/cystitis - u/a with many yeast. Followup culture. Diflucan 100 mg IV daily , adjusted for renal function. Sacral and hip decubitus ulcers present on admission Influenza negative Check urine legionella and pneumococcal antigen Follow-up urine and blood cultures. Obtain sputum culture Vancomycin pharmacy dosing. Calculated creatinine clearance is 37. Aztreonam 2 g IV every 8 hours and adjust if creatinine clearance drops below 30. (PCN allergy) Flagyl 500 mg IV every 8 hours for anaerobic coverage. F/U C diff PCR MSK: S/P L AKA - stump with poor healing bone protrusion. states she has been told before he was not an operative candidate for revision of the wound, however perhaps could rongeur at bedside? Patient known to Dr. Ellis who performed surgery, so will consult ortho for recommendations. Obtain specialty bed Specialty Bed HEME: Chronic iron deficiency anemia Reactive thrombocytosis Continue Ferrous sulfate 325 mill grams by mouth 3 times a day ENDO: Hyperglycemia associated with tube feed administration Monitor bedside glucose every 6 hours and initiate low-dose insulin sliding scale as indicated. PROPH: Heparin subcutaneous for DVT prophylaxis. Change Protonix 40 mg IV daily for stress ulcer prophylaxis in the setting of AKA to famotidine. ACCESS: Has peripheral IV. May require central line, discussed with . Patient is critically ill with septic shock and multiorgan dysfunction who is at risk for further decompensation or . states he has a living will and that she is his healthcare surrogate. She states that he had stated that he wanted to be FULL CODE. She states she would place consideration to change of code status if his condition worsened but she states she feels he has "rallied" since when he was initially admitted and that he appears to still want to fight. 08/01-obtain palliative care consult Discussed with DEATH CLAIM CLERK at bedside (Fadumo) This patient remains critically ill with one or more organ systems which are or may become a threat to life. I have spent in excess of 42 minutes discontinuously in the care and management of this patient. This time is exclusive of procedures, and includes, but is not limited to, evaluation of the patient, review of the medical record, discussions with family, consultants, nursing staff, or respiratory therapy, and documentation in the medical record. Physician Griselda Bateman Problem Qualifiers (1) UTI (urinary tract infection): Qualified Codes: N39.0 - Urinary tract infection, site not specified; R31.9 - Hematuria, unspecified (2) Dementia: (3) HTN (hypertension): Qualified Codes: I10 - Essential (primary) hypertension Griselda Bateman MD Aug 01, 2017 07:45
[2017-08-01] MEDS ORDERED: FAMOTIDINE 20 MG/2 ML VIAL IV PUSH SCH (08:00)
[2017-08-01] MEDS: DOCUSATE SODIUM 50 MG/SENNA 8.6 MG TAB PO SCH ×2 (08:49→23:38)
[2017-08-01] MEDS: FERROUS SULFATE 325 MG (65 MG ELEMENTAL IRON) TAB PO SCH ×3 (08:49→17:50)
[2017-08-01] MEDS: LACTOBACILLUS ACIDOPHILUS 1 GM PACKET PEG SCH ×3 (08:49→17:22)
[2017-08-01] MEDS: SODIUM CHLORIDE 0.9% FLUSH 10 ML FLUSH IV FLUSH SCH ×2 (08:50→23:39)
[2017-08-01] MEDS: ASCORBIC ACID 500 MG TAB PO SCH (08:50)
[2017-08-01] MEDS ORDERED: PANTOPRAZOLE SODIUM 40 MG VIAL IV PUSH SCH (09:00)
--- NOTE | 2017-08-01 10:23 | PD.CONS ---
HPI History of Present Illness This is a 86 year old male with multiple medical problems including Alzhemier's dementia, Parkinson's, CAD, HTN, GERD, CARMELITA, hyperglycemia, Vitamin D deficiency , PAD with left AKA, BPH who was sent to the emergency room for evaluation of respiratory distress with fevers and rigors. He has a history of respiratory failure requiring tracheostomy, but this was decannulated prior to this admission. He has a history of dysphagia and gets a pureed diet with supplemental bolus feedings at mealtime, depending on his meal percentage. He was found to be in septic shock (related to pneumonia and UTI) with multiorgan dysfunction and admitted to ICU for further evaluation and treatment. CT scan of the abdomen and pelvis with IV contrast (07/31/17) CT suggests mild left- sided colitis in the proper clinical setting. No obstruction, perforation, or abscess, thick-walled urinary bladder, Masters catheter present, right base infiltrate and small right tiny left pleural effusions. GI has been consulted for evaluation and treatment of left sided colitis. Of note, he does have a history of C. Difficile back in October of 2016 and was treated with Flagyl and Vanco. The nurse has sent stool for CDiff. The patient is lethargic and confused. He is unable to provide any history. He denies any nausea, vomiting , abdominal pain, constipation, or diarrhea. (Ayaka Arzola) PFSH Past Medical History Coronary artery disease with [place] in 1997 with prior stents Parkinson's disease Dementia Paroxysmal atrial fibrillation Hypertension GERD with esophagitis Hyperglycemia associated with tube feeds Records indicate he has a history of COPD but his insisted he does not Iron deficiency anemia Vitamin D deficiency Constipation Left AKA Allergic rhinitis Sacral decubitus ulcers - Wound care by Dr. [facility] Past Surgical History Appendectomy TURP Right carotid endarterectomy Multiple sacral debridements PEG Trach 10/2016 Left knee arthroscopy AKA Dr. Ellis Bilateral cataract surgery (Ayaka Arzola) Coded Allergies: Fish Containing Products (Unverified Allergy, Severe, 04/25/17) levofloxacin (Unverified Allergy, Severe, 04/25/17) lorazepam (Unverified Allergy, Severe, 04/25/17) morphine (Unverified Allergy, Severe, 04/25/17) penicillin G (Unverified Allergy, Severe, 04/25/17) sulfamethoxazole (Unverified Allergy, Severe, hives, 04/25/17) trimethoprim (Unverified Allergy, Severe, hives, 04/25/17) acetaminophen (Verified Allergy, Mild, ITCHING, 07/31/17) hydrocortisone (Unverified Allergy, Unknown, UNKNOWN, 04/25/17) Medications Allergies Coded Allergies Type Severity Reaction Last Updated Verified Fish Containing Products Allergy Severe 04/25/17 No levofloxacin Allergy Severe 04/25/17 No lorazepam Allergy Severe 04/25/17 No morphine Allergy Severe 04/25/17 No penicillin G Allergy Severe 04/25/17 No sulfamethoxazole Allergy Severe hives 04/25/17 No trimethoprim Allergy Severe hives 04/25/17 No acetaminophen Allergy Mild ITCHING 07/31/17 Yes hydrocortisone Allergy Unknown UNKNOWN 04/25/17 No Active Scripts Medications Dose Route/Sig Max Daily Dose Days Date Category Dose Instructions Zoloft (Sertraline HCl) 25 Mg Tab 25 Mg PO BID 07/31/17 Reported Lisinopril 10 Mg Tab 10 Mg PO DAILY 07/31/17 Reported Donepezil 10 Mg Tab 10 Mg PO HS 07/31/17 Reported Neurontin (Gabapentin) 100 Mg Cap 100 Mg PO HS 07/31/17 Reported Melatonin 5 Mg Tab 5 Mg PO HS 07/31/17 Reported Minocycline (Minocycline HCl) 100 Mg Cap 100 Mg PO BID 07/31/17 Reported Cefdinir 300 Mg Cap 300 Mg PO BID 07/31/17 Reported Florajen Bifidoblend Capsule (Bifidobacter. Bifidum/B.longum) 460 Mg Capsule 3 Cap PEG BID 07/31/17 Reported Vitamin C (Ascorbic Acid) 250 Mg Tab 250 Mg PEG 07/31/17 Reported Zofran (Ondansetron HCl) 4 Mg Tab 4 Mg PO Q8HR PRN 07/31/17 Reported Saline Nasal [place] (Sodium Chloride) 0.65% [place] 2 [place] EACH NARE DIRECTED PRN 07/31/17 Reported Ferrous Sulfate 325 Mg (65 Mg Iron) Tablet 325 Mg PO TIDPC 07/31/17 Reported [Glucerna 1.5 ] 70 Ml PEG 07/31/17 Reported Ibuprofen 400 Mg Tab 400 Mg PO Q8H PRN 07/31/17 Reported Benadryl Allergy (Diphenhydramine HCl) 25 Mg Cap 07/31/17 Reported Ferrous Sulfate 325 Mg (65 Mg Iron) Tablet 325 Mg PO TIDPC 07/31/17 Reported Digestive Enzyme (Digestive Enzymes) 1 Cap Cap 1 Cap PO TID 11/01/16 Reported Albuterol Neb (Albuterol Sulfate) 2.5 Mg/3 Ml Neb 2.5 Mg NEB Q4HR NEB 11/01/16 Reported While awake Alprazolam 0.25 Mg Tab 0.25 Mg PO DAILY PRN 11/01/16 Reported Family History Sister had diabetes Social History Quit smoking 1997. No ETOH or illicit drug use. (Ayaka Arzola) Review of Systems Constitutional: COMPLAINS OF: Fatigue Gastrointestinal: DENIES: Abdominal pain Psychiatric: COMPLAINS OF: Confusion ROS poor historian (Ayaka Arzola) GI Exam Vitals I&O Vital Signs Date Time Temp Pulse Resp B/P (MAP) Pulse Ox O2 Delivery O2 Flow Rate FiO2 08/01/17 07:43 97 Venturi Mask 6.00 50 08/01/17 06:00 97 08/01/17 04:00 99 08/01/17 04:00 98.0 99 20 89/49 (62) 99 08/01/17 02:00 90 08/01/17 00:00 98.1 102 24 119/57 (77) 97 08/01/17 00:00 102 07/31/17 23:15 97.9 97 22 107/55 (72) 98 07/31/17 23:15 98 Venturi Mask 6.00 50 07/31/17 23:15 97 07/31/17 22:54 07/31/17 22:52 100 22 101/56 (71) 93 Venturi Mask 7.00 07/31/17 21:57 93 Venturi Mask 50 07/31/17 21:52 97.9 108 22 157/67 (97) 94 Venturi Mask 7.00 07/31/17 21:35 98 Non-Rebreather 12.00 07/31/17 21:24 98.6 104 22 139/62 (87) 99 Non-Rebreather 15.00 07/31/17 20:59 99.1 108 22 119/86 (97) 97 Non-Rebreather 15.00 07/31/17 20:20 100.0 108 22 121/85 (97) 100 Non-Rebreather 15.00 07/31/17 20:03 100.2 114 22 121/55 (77) 96 Non-Rebreather 15.00 07/31/17 19:36 100.6 121 22 82/49 (60) 95 Non-Rebreather 15.00 07/31/17 19:08 100.6 120 22 92/48 (63) 94 Non-Rebreather 15.00 07/31/17 18:59 18 98 Non-Rebreather 14.00 07/31/17 18:59 90 Non-Rebreather 14.00 07/31/17 17:43 128 18 Nasal Cannula 2.00 07/31/17 17:38 101.7 129 18 112/88 (96) Nasal Cannula 2.00 I/O 07/31/17 07/31/17 07/31/17 08/01/17 08/01/17 08/01/17 07:00 15:00 23:00 07:00 15:00 23:00 Intake Total 3350 ml 460 ml 1258 ml Output Total 300 ml Balance 3350 ml 160 ml 1258 ml Intake IV Total 3350 ml 400 ml 1258 ml Other 60 ml Output Urine Total 300 ml # Bowel Movements 2 Imaging Last Impressions Chest X-Ray 07/31/17 1732 Signed Impressions: Service Date/Time: Monday, July 31, 2017 19:04 - CONCLUSION: Possible right midlung infiltrate. Recommend followup films. Aneudy Wong MD Abdomen/Pelvis CT 07/31/17 0000 Signed Impressions: Service Date/Time: Monday, July 31, 2017 22:53 - CONCLUSION: 1. CT suggests mild left-sided colitis in the proper clinical setting. No obstruction , perforation or abscess. 2. Thick waledl urinary bladder. Masters catheter present. 3. Right base infiltrate and small right, tiny left pleural effusions. 1. Arvind Márquez MD Laboratory Test 07/31/17 18:12 07/31/17 18:17 07/31/17 18:44 07/31/17 19:35 Lactic Acid Level 8.1 mmol/L White Blood Count 9.3 TH/MM3 Red Blood Count 4.29 MIL/MM3 Hemoglobin 12.7 GM/DL Hematocrit 39.9 % Mean Corpuscular Volume 93.1 FL Mean Corpuscular Hemoglobin 29.7 PG Mean Corpuscular Hemoglobin Concent 31.9 % Red Cell Distribution Width 17.4 % Platelet Count 536 TH/MM3 Mean Platelet Volume 7.9 FL Neutrophils (%) (Auto) 90.1 % Lymphocytes (%) (Auto) 5.4 % Monocytes (%) (Auto) 3.9 % Eosinophils (%) (Auto) 0.2 % Basophils (%) (Auto) 0.4 % Neutrophils # (Auto) 8.4 TH/MM3 Lymphocytes # (Auto) 0.5 TH/MM3 Monocytes # (Auto) 0.4 TH/MM3 Eosinophils # (Auto) 0.0 TH/MM3 Basophils # (Auto) 0.0 TH/MM3 CBC Comment AUTO DIFF Differential Comment AUTO DIFF CONFIRMED Platelet Estimate HIGH Platelet Morphology Comment ENLARGED Blood Urea Nitrogen 33 MG/DL Creatinine 1.35 MG/DL Random Glucose 99 MG/DL Total Protein 7.7 GM/DL Albumin 2.2 GM/DL Calcium Level 8.5 MG/DL Alkaline Phosphatase 108 U/L Aspartate Amino Transf (AST/SGOT) 104 U/L Alanine Aminotransferase (ALT/SGPT) 44 U/L Total Bilirubin 0.5 MG/DL Sodium Level 138 MEQ/L Potassium Level 4.3 MEQ/L Chloride Level 105 MEQ/L Carbon Dioxide Level 16.5 MEQ/L Anion Gap 17 MEQ/L Estimat Glomerular Filtration Rate 50 ML/MIN Troponin I 0.35 NG/ML Lipase 88 U/L Urine Color YELLOW Urine Turbidity CLOUDY Urine pH 5.5 Urine Specific [place] 1.020 Urine Protein 100 mg/dL Urine Glucose (UA) NEG mg/dL Urine Ketones NEG mg/dL Urine Occult Blood LARGE Urine Nitrite NEG Urine Bilirubin NEG Urine Urobilinogen LESS THAN 2.0 MG/DL Urine Leukocyte Esterase LARGE Urine RBC /hpf Urine WBC /hpf Urine Squamous Epithelial Cells 2 /hpf Urine Amorphous Sediment OCC Urine Bacteria FEW /hpf Urine Hyaline Casts 15 /lpf Urine Mucus MANY /lpf Urine Yeast with Hyphae MANY Urine Yeast (Budding) FEW Microscopic Urinalysis Comment CATH-CULTURE IND Prothrombin Time 13.4 SEC Prothromb Time International Ratio 1.2 RATIO Activated Partial Thromboplast Time 28.9 SEC Test 07/31/17 20:55 07/31/17 23:40 08/01/17 00:25 08/01/17 00:28 Lactic Acid Level 7.6 mmol/L 5.5 mmol/L Nasal Screen MRSA (PCR) MRSA DETECTED Blood Gas Puncture Site RT BRACHIAL Blood Gas Patient Temperature 98.6 Blood Gas HCO3 15 mmol/L Blood Gas Base Excess -10.3 mmol/L Blood Gas Oxygen Saturation 88 % Arterial Blood pH 7.31 Arterial Blood Partial Pressure CO2 30 mmHg Arterial Blood Partial Pressure O2 63 mmHg Arterial Blood Oxygen Content 12.1 Vol % Arterial Blood Carboxyhemoglobin 0.7 % Arterial Blood Methemoglobin 1.0 % Blood Gas Hemoglobin 9.7 G/DL Oxygen Delivery Device Venti Mask Blood Gas Liter Flow 7 L/M Blood Gas Inspired Oxygen 50 % Test 08/01/17 01:45 08/01/17 03:50 08/01/17 08:26 Troponin I 0.54 NG/ML 0.48 NG/ML White Blood Count 9.2 TH/MM3 Red Blood Count 3.19 MIL/MM3 Hemoglobin 9.3 GM/DL Hematocrit 29.4 % Mean Corpuscular Volume 92.3 FL Mean Corpuscular Hemoglobin 29.2 PG Mean Corpuscular Hemoglobin Concent 31.6 % Red Cell Distribution Width 17.4 % Platelet Count 359 TH/MM3 Mean Platelet Volume 8.2 FL Neutrophils (%) (Auto) 88.1 % Lymphocytes (%) (Auto) 8.1 % Monocytes (%) (Auto) 3.5 % Eosinophils (%) (Auto) 0.1 % Basophils (%) (Auto) 0.2 % Neutrophils # (Auto) 8.1 TH/MM3 Lymphocytes # (Auto) 0.7 TH/MM3 Monocytes # (Auto) 0.3 TH/MM3 Eosinophils # (Auto) 0.0 TH/MM3 Basophils # (Auto) 0.0 TH/MM3 CBC Comment DIFF FINAL Differential Comment Blood Urea Nitrogen 33 MG/DL Creatinine 1.19 MG/DL Random Glucose 102 MG/DL Total Protein 5.8 GM/DL Albumin 1.8 GM/DL Calcium Level 7.3 MG/DL Phosphorus Level 2.6 MG/DL Magnesium Level 1.9 MG/DL Alkaline Phosphatase 74 U/L Aspartate Amino Transf (AST/SGOT) 568 U/L Alanine Aminotransferase (ALT/SGPT) 276 U/L Total Bilirubin 0.2 MG/DL Sodium Level 140 MEQ/L Potassium Level 3.6 MEQ/L Chloride Level 110 MEQ/L Carbon Dioxide Level 18.7 MEQ/L Anion Gap 11 MEQ/L Estimat Glomerular Filtration Rate 58 ML/MIN Lactic Acid Level 3.7 mmol/L 3.5 mmol/L Protein Corrected Calcium 8.0 MG/DL Date/Time Source Procedure Growth Status 07/31/17 18:17 Blood Peripheral Aerobic Blood Culture Pending Received 07/31/17 18:17 Blood Peripheral Anaerobic Blood Culture Pending Received 07/31/17 19:35 Nasal Washing Influenza Types A,B Antigen (JAKOB) - Final NEGATIVE FOR FLU A AND B ANTIGEN.... Complete 07/31/17 18:44 Urine Catheterized Urine Urine Culture Pending Received Physical Examination HEENT: Normocephalic; atraumatic; no jaundice. CHEST: Resp. even/unlabored. Ventimask. Course breath sounds CARDIAC: RRR. ABDOMEN: Soft, nondistended, nontender; no hepatosplenomegaly; bowel sounds are present in all four quadrants. EXTREMITIES: Left AKA. SWITCHER: Alert, confused. (Ayaka Arzola) Assessment and Plan Plan ASSESSMENT: - Left sided colitis. Pt admitted for sepsis, HCAP, UTI. CT Scan of the abdomen and pelvis with IV contrast (07/31/17) CT suggests mild left-sided colitis in the proper clinical setting. No obstruction, perforation, or abscess, thick-walled urinary bladder, Masters catheter present, right base infiltrate and small right tiny left pleural effusions. Of note, he does have a history of C. Difficile back in October of 2016 and was treated with Flagyl and Vanco. CDiff is pending. On flagyl, if positive then add Oral vanco. If negative, will see if they can reconstruct CT scan to evaluate vasculature system to eval. for mesenteric ischemia. - Dysphagia. Gets pureed diet with supplemental feedings via peg at rehab center. Now with pna. Will get ST to evaluate for swallow evaluation and also have planishing hammer operator make recommendations for diet with supplemental nighttime feedings and just TF feedings. - Elevated transaminases. CT as above. T. Bili 0.2, AST 568, ALT 276, ALk Phosph 74. Possible shocked liver. - CARMELITA. 9.3/29.4. - Sepsis, HCAP, UTI. Vanco, Diflucan, Azactam, Flagyl - Resp. Insufficiency with pna. Venti mask per [facility] - Acute on chronic kidney dz. Creat 1.19. - Acute metabolic encephalopathy. lethargic, but answers questions/confused. ? baseline. - Dementia, Decubitus ulcer, HTN, BPH, CAD, PAD, Paroxysmal afib. per attending. PLAN: - NPO for now - Speech therapy for swallow evaluation - Arboriculture Instructor evaluation for recommendations- Diet with Nighttime feedings and TF only - Await CDiff. - Cont. Flagyl - If CDiff positive, consider adding oral vanco - If CDiff negative, consider asking radiology to reconstruct contrasted CT to evaluate vasculature system - Hepatitis profile - REINIER, ASMA, AMA - CBC, CMP in am - Supportive care - Further recommendations to follow based on results of above - Pt seen and examined by Dr. Soto and myself and this note is written on his behalf (Ayaka Arzola) Physician Comments Seen and examined with SIGIFREDO, Stool studies -p. Consider CTA if stool studies - ve. ? colonoscopy later in the week if needed. Currently poor respiratory status. Will follow, thank you. (Pina Soto MD) Ayaka Arzola Aug 01, 2017 10:23 Pina Soto MD Aug 01, 2017 15:43
[2017-08-01 10:32] LABS: LACTIC ACID GHOST NOT REPORTABLE
[2017-08-01] MEDS ORDERED: MIDAZOLAM HCL 5 MG/ML VIAL (1 ML) ONE (10:47)
--- NOTE | 2017-08-01 10:59 | PD.CONS ---
Consult Service Palliative Care Consult Requested By Dr. Bateman Primary Care Physician Unknown Reason for Consultation a. To assist with evaluation and management of symptoms including: shortness of breath, dysphagia, debility b. To assist medical decision maker(s) with: better understanding of current medical conditions; weighing benefits/burdens of medical treatment options; making medical treatment decisions. HPI History of Present Illness Mr. Holguin is a 86 years old male with a past medical history of dementia, Parkinson's, PVD with left AKA, tobacco abuse, BPH, GERD, bed ridden with sacral decubitus ulcers, PEG and history of tracheostomy that was decannulated. Patient is on a pureed diet and gets supplemental bolus feeding via PEG. Apparently, patient vomited after receiving a bolus feed at the alf and thereafter developed signs of respiratory distress. O2 saturation was in the low 70`s on room air. Patient was sent from the alf to the emergency room due to tachypnea, elevated temperature and tachycardia. In ER, Tmax of 101.7 degrees F per rectum, heart rate 129. Patient was also hypotensive. Sepsis workup initiated. Laboratory workup revealed WBC 9.3, hemoglobin 12.7, hematocrit 39.9, platelet count 536, sodium 138, potassium 4.3 , BUN/creatinine 33/1.35, random glucose 99, lactic acid 8.1, AST 104, ALT for focal troponin 0.35, albumin 2.2, protein 7.7. Urine showed large leukocyte esterase, urine culture pending. Chest x-ray revealed possible right midlung infiltrate. CT abdomen/pelvis revealed mild left-sided colitis, no obstruction , perforation or abscess, right base infiltrate and small right tiny left pleural effusions. Patient was found to have acute kidney injury, RML and RLL pneumonia, and urinary tract infection. Patient was treated with vancomycin, aztreonam in the ER and 3L NS. Patient was admitted in ICU for further evaluation and treatment. Critical care Dr. Lazo consulted. Patient started off with O2 via NC and was then switched to a Non-rebreather. ABG at midnight revealed pH 7.31, pCO2 30, HCO3 15, pO2 63, O2 saturation 88% on 50% Ventimask. Patient was started on a Bicarbonate infusion. Clinical course complicated with increased respiratory distress and confusion. GI consulted for evaluation and treatment of left-sided colitis. Palliative care consulted to assist with clarifying goals of care. Patient seen in ICU Rm [id number]. Dual visit with Krys MEI. Patient is lethargic, oriented to person only and confused to place, time and situation. Speech sometimes difficult to understand, patient is on a Ventimask. Patient denies pain. Noticed slight tremors with LUE during palpation of abdomen, unsure if patient is trying to guard his abdomen or not. Patient intermittently follows simple commands, was able to squeeze hands but did not follow commands with RLE. Patient is afebrile today. SBP 80s-120s. HR low 100s. O2 saturation high 90s on 40% Ventimask. ABG done today revealed pH 7.37, HCO3 18, pCO2 32, HCO3 18, pO2 65 %. Case discussed with Dr. Bateman and bedside RN Fadumo. Telephone conversation with patient`s Domitila Canales who is also patient` s Health Care Surrogate. Psychosocial history obtained and brief update on patient`s medical status provided. stated that patient has a living will and will bring a copy to the hospital when she comes in. Discussed Code status, discussed risks, benefits and limitations of CPR given ongoing comorbidities and patient`s stated that she would want CPR to be performed and patient to be intubated. She said, "he rallies". Patient`s will be coming in to see patient around 1500hrs. Planned to have a meeting with her regarding patient `s current medical status, and goals of care. 1500hrs- Met with patient`s Ally Ramesh who is also patient`s HCS for a conference with SIGIFREDO Loja. Discussed patient`s previous hospitalizations and decline since October. Patient`s voiced that patient actually improved medically after hospitalization in October. Patient was then hospitalized at [facility] in April, when he had left AKA. Patient` s believes that patient will get better and that he has been through a lot. Patient has a living will and patient`s indicated that until he is in a vegetative state she wants aggressive care. She stated that, " she will know when it`s time". Offered empathetic listening when patient`s voiced concern about patient`s care in the alf where he resides and how she is , "tired of hearing that patient is 86 years old" and his medical history and that he will not do well. Updated patient`s that orthopedic physician was consulted to evaluate and treat protruding bone to left stump. Patient`s was very pleased to hear that. . Function/Cognitive Trajectory Patient was hospitalized in October 2016 with C. difficile and HCAP with respiratory failure requiring intubation and extubation several times leading to tracheostomy placement on 11/15/16 and PEG. During that time patient developed a sacral wound. Patient had a left above the knee amputation at [facility] in April,. Patient was also recently admitted at [facility] approximately 1-1/2 months ago due to infection of sacral wound which required multiple debridement and was recently on antibiotics for the sacral wound. Patient has been residing at [facility] since 2014 and was able to transfer himself from bed to , feed himself and carry a simple conversation with his . Patient has been bedridden since he developed the sacral ulcer and totally dependent for all his ADLs. Patient has dementia and is oriented to self only. Per his , he is mostly able to say "yes" or "no" to pain. . Review of Systems ROS Limitations: Clinical Condition, Altered Mental Status Constitutional: COMPLAINS OF: Fever, Weight loss, Change in appetite Eyes: DENIES: Eye inflammation Respiratory: COMPLAINS OF: Shortness of breath Cardiovascular: DENIES: Lower Extremity Edema Gastrointestinal: COMPLAINS OF: Constipation, Vomiting Genitourinary: COMPLAINS OF: Urinary incontinence Musculoskeletal: COMPLAINS OF: Decreased range of motion Integumentary: COMPLAINS OF: Non-healing sores Psychiatric: COMPLAINS OF: Confusion Other ROS: ROS obtained from medical history and clinical observation. . Past Family Social History Coded Allergies: Fish Containing Products (Unverified Allergy, Severe, 04/25/17) levofloxacin (Unverified Allergy, Severe, 04/25/17) lorazepam (Unverified Allergy, Severe, 04/25/17) morphine (Unverified Allergy, Severe, 04/25/17) penicillin G (Unverified Allergy, Severe, 04/25/17) sulfamethoxazole (Unverified Allergy, Severe, hives, 04/25/17) trimethoprim (Unverified Allergy, Severe, hives, 04/25/17) acetaminophen (Verified Allergy, Mild, ITCHING, 07/31/17) hydrocortisone (Unverified Allergy, Unknown, UNKNOWN, 04/25/17) Past Medical History Diabetes mellitus type 2 Hypertension Dementia Subdural hematoma Parkinson`s disease CAD with [place] in 1997 with prior stents PAD with left AKA Paroxysmal Atrial fibrillation Kidney stones Stage II left trochanter ulcer-Wound care by Dr. Benjamin Stage III coccyx ulcer Recurrent UTI Records indicate he has a history of COPD though his denies BPH GERD Constipation history of C. Difficile in October of 2016 PEG . Past Surgical History Appendectomy Bilateral Cataract surgery TURP Hx of Tracheostomy placement, October 2016 PEG placement, October 2016 Carotid Artery Endarterectomy Left knee arthroscopy Left AKA Dr. Ellis Multiple sacral debridements Right subdural Winner hole and subdural hematoma evacuation . Reported Medications Zoloft (Sertraline HCl) 25 Mg Tab 25 Mg PO BID Lisinopril 10 Mg Tab 10 Mg PO DAILY Donepezil 10 Mg Tab 10 Mg PO HS Neurontin (Gabapentin) 100 Mg Cap 100 Mg PO HS Melatonin 5 Mg Tab 5 Mg PO HS Minocycline (Minocycline HCl) 100 Mg Cap 100 Mg PO BID Cefdinir 300 Mg Cap 300 Mg PO BID Florajen Bifidoblend Capsule (Bifidobacter. Bifidum/B.longum) 460 Mg Capsule 3 Cap PEG BID Vitamin C (Ascorbic Acid) 250 Mg Tab 250 Mg PEG Zofran (Ondansetron HCl) 4 Mg Tab 4 Mg PO Q8HR PRN Saline Nasal [place] (Sodium Chloride) 0.65% Munster 2 Munster EACH NARE DIRECTED PRN Ferrous Sulfate 325 Mg (65 Mg Iron) Tablet 325 Mg PO TIDPC [Glucerna 1.5 ] 70 Ml PEG Ibuprofen 400 Mg Tab 400 Mg PO Q8H PRN Benadryl Allergy (Diphenhydramine HCl) 25 Mg Cap Ferrous Sulfate 325 Mg (65 Mg Iron) Tablet 325 Mg PO TIDPC Digestive Enzyme (Digestive Enzymes) 1 Cap Cap 1 Cap PO TID Albuterol Neb (Albuterol Sulfate) 2.5 Mg/3 Ml Neb 2.5 Mg NEB Q4HR NEB While awake Alprazolam 0.25 Mg Tab 0.25 Mg PO DAILY PRN Current Medications Medications (Trade) Dose Ordered Sig/Jaime Route Start Time Stop Time Status Last Admin Norepinephrine Bitartrate 250 ml @ 7.5 mls/hr TITRATE PRN IV 07/31/17 21:15 (Brethine Inj) 1 mg UNSCH PRN SQ 07/31/17 21:15 (NS Flush) 2 ml UNSCH PRN IV FLUSH 07/31/17 21:15 (NS Flush) 2 ml BID IV FLUSH 08/01/17 09:00 08/01/17 08:50 (Zofran Inj) 4 mg Q6H PRN IV PUSH 07/31/17 21:15 (Heparin Inj) 5,000 units Q12H SQ 07/31/17 22:00 07/31/17 22:10 Miscellaneous Information 1 Q361D XX 07/31/17 21:15 (Chlorhexidine 2% Cloth) 3 pack Taper DAILY@04 TOP 08/01/17 04:00 07/28/18 03:59 08/01/17 04:00 (Chlorhexidine 2% Cloth) 3 pack UNSCH PRN TOP 07/31/17 21:15 (Azucena-Colace) 1 tab BID PO 08/01/17 09:00 08/01/17 08:49 (Milk Of Magnesia Liq) 30 ml Q12H PRN PO 07/31/17 21:15 (Senokot) 17.2 mg Q12H PRN PO 07/31/17 21:15 (Dulcolax Supp) 10 mg DAILY PRN RECTAL 07/31/17 21:15 (Lactulose Liq) 30 ml DAILY PRN PO 07/31/17 21:15 Pharmacy Profile Note 0 ml @ 0 mls/hr UNSCH OTHER 07/31/17 21:15 Aztreonam 2000 mg/ Sodium Chloride 100 ml @ 200 mls/hr Q8H IV 08/01/17 04:00 08/01/17 04:43 Metronidazole 100 ml @ 100 mls/hr Q8H IV 08/01/17 00:00 08/01/17 08:49 Sodium Bicarbonate 75 meq/Sodium Chloride 1,075 ml @ 125 mls/hr Q8H36M IV 08/01/17 03:00 08/01/17 04:44 (Aricept) 10 mg HS PO 08/01/17 21:00 (Ferrous Sulfate) 325 mg TIDPC PO 08/01/17 09:30 08/01/17 08:49 (Vitamin C) 500 mg DAILY PO 08/01/17 09:00 08/01/17 08:50 (Duoneb Neb) 1 ampule Q6HR NEB NEB 08/01/17 04:00 08/01/17 07:43 (Albuterol Neb) 2.5 mg Q2HR NEB PRN NEB 08/01/17 03:00 (D50w (Vial) Inj) 50 ml UNSCH PRN IV PUSH 08/01/17 03:15 (Glucagon Inj) 1 mg UNSCH PRN OTHER 08/01/17 03:15 (NovoLOG SUPPLEMENTAL SCALE) 1 Q6H SQ 08/01/17 03:15 Fluconazole/ Sodium Chloride 50 ml @ 50 mls/hr Q24H IV 08/01/17 05:00 08/01/17 05:32 (Lactinex Pkt) 1 gm TID PEG 08/01/17 09:00 08/01/17 08:49 (Pepcid Inj) 20 mg Q12H IV PUSH 08/01/17 08:00 08/01/17 08:50 Vancomycin HCl 1250 mg/Sodium Chloride 262.5 ml @ 250 mls/hr Q24H IV 08/01/17 18:00 Miscellaneous Information SPECIFIC LAB TO BE JERRY... ONCE ONCE .XX 08/03/17 17:45 08/03/17 17:46 Family History Mother had angina -unsure of cause of Sister had diabetes. . Substance Use Tobacco: History of tobacco use, quit smoking in 1997 Alcohol: No EtOH use Prescription med abuse: No prescription med abuse Illicits: No illicit drug use . Psychosocial History Patient was born and raised in [place], [place]. Patient has been twice and is currently to his second of 52 years. Patient has 3 adult children, 2 from his first marriage and 1 son from his current marriage. 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 . Spiritual/Cultural Factors stated that they are spiritual and not shinto. . Living Will: Copy in medical record Health Care Surrogate: Copy in medical record Date completed: 08/05/2012 . Health Care Surrogate(s): Spouse- [facility]- Ally Ramesh . Documented care wishes: Standard verbiage. Form scanned into EMR . Family/friends goals: Patient`s wants aggressive treatment for her and was requesting that anemia be addressed as well as the protruding bone to the stump. . Ethical and Legal Issues None identified at this time. Physical Exam Vital Signs Date Time Temp Pulse Resp B/P (MAP) Pulse Ox O2 Delivery O2 Flow Rate FiO2 08/01/17 07:43 97 Venturi Mask 6.00 50 08/01/17 06:00 97 08/01/17 04:00 99 08/01/17 04:00 98.0 99 20 89/49 (62) 99 08/01/17 02:00 90 08/01/17 00:00 98.1 102 24 119/57 (77) 97 08/01/17 00:00 102 07/31/17 23:15 97.9 97 22 107/55 (72) 98 07/31/17 23:15 98 Venturi Mask 6.00 50 07/31/17 23:15 97 07/31/17 22:54 07/31/17 22:52 100 22 101/56 (71) 93 Venturi Mask 7.00 07/31/17 21:57 93 Venturi Mask 50 07/31/17 21:52 97.9 108 22 157/67 (97) 94 Venturi Mask 7.00 07/31/17 21:35 98 Non-Rebreather 12.00 07/31/17 21:24 98.6 104 22 139/62 (87) 99 Non-Rebreather 15.00 07/31/17 20:59 99.1 108 22 119/86 (97) 97 Non-Rebreather 15.00 07/31/17 20:20 100.0 108 22 121/85 (97) 100 Non-Rebreather 15.00 07/31/17 20:03 100.2 114 22 121/55 (77) 96 Non-Rebreather 15.00 07/31/17 19:36 100.6 121 22 82/49 (60) 95 Non-Rebreather 15.00 07/31/17 19:08 100.6 120 22 92/48 (63) 94 Non-Rebreather 15.00 07/31/17 18:59 18 98 Non-Rebreather 14.00 07/31/17 18:59 90 Non-Rebreather 14.00 07/31/17 17:43 128 18 Nasal Cannula 2.00 07/31/17 17:38 101.7 129 18 112/88 (96) Nasal Cannula 2.00 08/01/17 08/02/17 19:00 07:00 Intake Total 1258 ml Balance 1258 ml Intake IV Total 1258 ml Exam CONSTITUTIONAL/GENERAL: This is an elderly, ill looking patient, in mild respiratory distress. TUBES/LINES/DRAINS: TLC, PIV, FC, Ventimask SKIN: No jaundice, rashes, or lesions. Ecchymoses on upper extremities. Stage II left trochanter ulcer and Stage III coccyx ulcer per EMR. Noted x2 intact dsgs to right foot and left stump. Skin temperature appropriate. Not diaphoretic. HEAD: Atraumatic. Normocephalic. EYES: Pupils equal and round and reactive. Extraocular motions intact. No scleral icterus. No injection or drainage. Fundi not examined. ENT: Hearing grossly normal. Nose without bleeding or purulent drainage. Moist oral mucosa NECK: Trachea midline. Supple, nontender. CARDIOVASCULAR: HR low 100s-irregular. No murmurs, gallops, or rubs. No JVD. Peripheral pulses symmetric-L AKA. RESPIRATORY/CHEST: Symmetric, mild respiratory distress. On Ventimask 40%. Diminished breath sounds equal bilaterally. No wheezes, rales. GASTROINTESTINAL: Abdomen soft, non-tender, nondistended. No palpable masses. Unsure is patient is trying to guard abdomen during palpation. Bowel sounds present. GENITOURINARY: Without palpable bladder distension. Masters catheter in place. MUSCULOSKELETAL: Extremities without clubbing, cyanosis, or edema. No mottling or clubbing. L AKA. Contracture to RLE. NEUROLOGICAL: Awake, lethargic, oriented to self only and confused. Follows simple commands intermittently, except did not follow with RLE. PSYCHIATRIC: Calm. no apparent hallucinations or other psychotic thought process. . Diagnostic Tests Laboratory Laboratory Tests Test 07/31/17 18:12 07/31/17 18:17 07/31/17 18:44 07/31/17 19:35 Lactic Acid Level 8.1 mmol/L (0.4-2.0) White Blood Count 9.3 TH/MM3 (4.0-11.0) Red Blood Count 4.29 MIL/MM3 (4.50-5.90) Hemoglobin 12.7 GM/DL (13.0-17.0) Hematocrit 39.9 % (39.0-51.0) Mean Corpuscular Volume 93.1 FL (80.0-100.0) Mean Corpuscular Hemoglobin 29.7 PG (27.0-34.0) Mean Corpuscular Hemoglobin Concent 31.9 % (32.0-36.0) Red Cell Distribution Width 17.4 % (11.6-17.2) Platelet Count 536 TH/MM3 (150-450) Mean Platelet Volume 7.9 FL (7.0-11.0) Neutrophils (%) (Auto) 90.1 % (16.0-70.0) Lymphocytes (%) (Auto) 5.4 % (9.0-44.0) Monocytes (%) (Auto) 3.9 % (0.0-8.0) Eosinophils (%) (Auto) 0.2 % (0.0-4.0) Basophils (%) (Auto) 0.4 % (0.0-2.0) Neutrophils # (Auto) 8.4 TH/MM3 (1.8-7.7) Lymphocytes # (Auto) 0.5 TH/MM3 (1.0-4.8) Monocytes # (Auto) 0.4 TH/MM3 (0-0.9) Eosinophils # (Auto) 0.0 TH/MM3 (0-0.4) Basophils # (Auto) 0.0 TH/MM3 (0-0.2) CBC Comment AUTO DIFF Differential Comment AUTO DIFF CONFIRMED Platelet Estimate HIGH (NORMAL) Platelet Morphology Comment ENLARGED (NORMAL) Blood Urea Nitrogen 33 MG/DL (7-18) Creatinine 1.35 MG/DL (0.60-1.30) Random Glucose 99 MG/DL (74-106) Total Protein 7.7 GM/DL (6.4-8.2) Albumin 2.2 GM/DL (3.4-5.0) Calcium Level 8.5 MG/DL (8.5-10.1) Alkaline Phosphatase 108 U/L (45-117) Aspartate Amino Transf (AST/SGOT) 104 U/L (15-37) Alanine Aminotransferase (ALT/SGPT) 44 U/L (12-78) Total Bilirubin 0.5 MG/DL (0.2-1.0) Sodium Level 138 MEQ/L (136-145) Potassium Level 4.3 MEQ/L (3.5-5.1) Chloride Level 105 MEQ/L (98-107) Carbon Dioxide Level 16.5 MEQ/L (21.0-32.0) Anion Gap 17 MEQ/L (5-15) Estimat Glomerular Filtration Rate 50 ML/MIN (>89) Troponin I 0.35 NG/ML (0.02-0.05) Lipase 88 U/L (73-393) Urine Color YELLOW (YELLW/STRAW) Urine Turbidity CLOUDY (CLEAR) Urine pH 5.5 (5.0-8.5) Urine Specific [place] 1.020 (1.002-1.035) Urine Protein 100 mg/dL (NEG-TRACE) Urine Glucose (UA) NEG mg/dL (NEG) Urine Ketones NEG mg/dL (NEG) Urine Occult Blood LARGE (NEG) Urine Nitrite NEG (NEG) Urine Bilirubin NEG (NEG) Urine Urobilinogen LESS THAN 2.0 MG/DL (LESS Urine Leukocyte Esterase LARGE (NEG) Urine RBC /hpf (0-3) Urine WBC /hpf (0-5) Urine Squamous Epithelial Cells 2 /hpf (0-5) Urine Amorphous Sediment OCC Urine Bacteria FEW /hpf (NONE) Urine Hyaline Casts 15 /lpf (RARE) Urine Mucus MANY /lpf (OCC) Urine Yeast with Hyphae MANY (NONE) Urine Yeast (Budding) FEW (NONE) Microscopic Urinalysis Comment CATH-CULTURE IND Prothrombin Time 13.4 SEC (9.8-11.6) Prothromb Time International Ratio 1.2 RATIO Activated Partial Thromboplast Time 28.9 SEC (24.3-30.1) Test 07/31/17 20:55 07/31/17 23:40 08/01/17 00:25 08/01/17 00:28 Lactic Acid Level 7.6 mmol/L (0.4-2.0) 5.5 mmol/L (0.4-2.0) Nasal Screen MRSA (PCR) MRSA DETECTED (NOT DETECT) Blood Gas Puncture Site RT BRACHIAL Blood Gas Patient Temperature 98.6 Blood Gas HCO3 15 mmol/L (22-26) Blood Gas Base Excess -10.3 mmol/L (-2-2) Blood Gas Oxygen Saturation 88 % (90-100) Arterial Blood pH 7.31 (7.380-7.420) Arterial Blood Partial Pressure CO2 30 mmHg (38-42) Arterial Blood Partial Pressure O2 63 mmHg (61-120) Arterial Blood Oxygen Content 12.1 Vol % (12.0-20.0) Arterial Blood Carboxyhemoglobin 0.7 % (0-4) Arterial Blood Methemoglobin 1.0 % (0-2) Blood Gas Hemoglobin 9.7 G/DL (12.0-16.0) Oxygen Delivery Device Venti Mask Blood Gas Liter Flow 7 L/M Blood Gas Inspired Oxygen 50 % Test 08/01/17 01:45 08/01/17 03:50 08/01/17 08:26 Troponin I 0.54 NG/ML (0.02-0.05) 0.48 NG/ML (0.02-0.05) White Blood Count 9.2 TH/MM3 (4.0-11.0) Red Blood Count 3.19 MIL/MM3 (4.50-5.90) Hemoglobin 9.3 GM/DL (13.0-17.0) Hematocrit 29.4 % (39.0-51.0) Mean Corpuscular Volume 92.3 FL (80.0-100.0) Mean Corpuscular Hemoglobin 29.2 PG (27.0-34.0) Mean Corpuscular Hemoglobin Concent 31.6 % (32.0-36.0) Red Cell Distribution Width 17.4 % (11.6-17.2) Platelet Count 359 TH/MM3 (150-450) Mean Platelet Volume 8.2 FL (7.0-11.0) Neutrophils (%) (Auto) 88.1 % (16.0-70.0) Lymphocytes (%) (Auto) 8.1 % (9.0-44.0) Monocytes (%) (Auto) 3.5 % (0.0-8.0) Eosinophils (%) (Auto) 0.1 % (0.0-4.0) Basophils (%) (Auto) 0.2 % (0.0-2.0) Neutrophils # (Auto) 8.1 TH/MM3 (1.8-7.7) Lymphocytes # (Auto) 0.7 TH/MM3 (1.0-4.8) Monocytes # (Auto) 0.3 TH/MM3 (0-0.9) Eosinophils # (Auto) 0.0 TH/MM3 (0-0.4) Basophils # (Auto) 0.0 TH/MM3 (0-0.2) CBC Comment DIFF FINAL Differential Comment Blood Urea Nitrogen 33 MG/DL (7-18) Creatinine 1.19 MG/DL (0.60-1.30) Random Glucose 102 MG/DL (74-106) Total Protein 5.8 GM/DL (6.4-8.2) Albumin 1.8 GM/DL (3.4-5.0) Calcium Level 7.3 MG/DL (8.5-10.1) Phosphorus Level 2.6 MG/DL (2.5-4.9) Magnesium Level 1.9 MG/DL (1.5-2.5) Alkaline Phosphatase 74 U/L (45-117) Aspartate Amino Transf (AST/SGOT) 568 U/L (15-37) Alanine Aminotransferase (ALT/SGPT) 276 U/L (12-78) Total Bilirubin 0.2 MG/DL (0.2-1.0) Sodium Level 140 MEQ/L (136-145) Potassium Level 3.6 MEQ/L (3.5-5.1) Chloride Level 110 MEQ/L (98-107) Carbon Dioxide Level 18.7 MEQ/L (21.0-32.0) Anion Gap 11 MEQ/L (5-15) Estimat Glomerular Filtration Rate 58 ML/MIN (>89) Lactic Acid Level 3.7 mmol/L (0.4-2.0) 3.5 mmol/L (0.4-2.0) Protein Corrected Calcium 8.0 MG/DL (8.5-10.1) Result Diagram: 08/01/17 0350 08/01/17 0350 Microbiology Microbiology Date/Time Source Procedure Growth Status 07/31/17 18:17 Blood Peripheral Aerobic Blood Culture Pending Received 07/31/17 18:17 Blood Peripheral Anaerobic Blood Culture Pending Received 07/31/17 18:07 Blood Peripheral Aerobic Blood Culture Pending Received 07/31/17 18:07 Blood Peripheral Anaerobic Blood Culture Pending Received 07/31/17 19:35 Nasal Washing Influenza Types A,B Antigen (JAKOB) - Final NEGATIVE FOR FLU A AND B ANTIGEN.... Complete 07/31/17 18:44 Urine Catheterized Urine Urine Culture Pending Received Imaging Last Impressions Chest X-Ray 07/31/17 [id number] Signed Impressions: Service Date/Time: Monday, July 31, 2017 19:04 - CONCLUSION: Possible right midlung infiltrate. Recommend followup films. Aneudy Wong MD Abdomen/Pelvis CT 07/31/17 0000 Signed Impressions: Service Date/Time: Monday, July 31, 2017 22:53 - CONCLUSION: 1. CT suggests mild left-sided colitis in the proper clinical setting. No obstruction , perforation or abscess. 2. Thick waledl urinary bladder. Masters catheter present. 3. Right base infiltrate and small right, tiny left pleural effusions. 1. Arvind Márquez MD Procedures 08/01/2017- Central line placement -R Subclavian . Patient/Family Conference Family Conference Location: Consult Room (Met with patient`s at 1500hrs with Krys Cummings), Telephone (Telephone conversation with patient`s Ally Ramesh who is also HCS.) Issues Discussed: * Palliative care role, purpose, approach * Additional medical, psychosocial, and spiritual history * Patients general health, functional status, and cognitive changes in the months leading up to the current hospitalization * Patient/family understanding of the current medical problems * Patient/family understanding of prognosis * Patients goals of care as best understood from advance directives and/or conversations and/or values * Current medical treatment options and benefits/burdens of those options * Likely scenarios comparing ongoing aggressive care with a transition to comfort measures only * Questions answered to the best of my ability * Palliative care contact information provided Assessment and Plan Disease Oriented Problem List: (1) HCAP (healthcare-associated pneumonia) (2) [id number] kidney injury (3) UTI (urinary tract infection) (4) CKD (chronic kidney disease), stage III (5) Decubital ulcer (6) Alzheimer's dementia (7) HTN (hypertension) (8) CAD (coronary artery disease) Symptom Scale: (1) Shortness of breath Comment: Multifactorial. Presented with tachypnea, O2 saturation in the 70s. Chest x-ray showing RML, RLL pneumonia. . (2) Debility Comment: Patient is currently bedridden. . (3) Dysphagia Comment: Patient currently has a PEG tube, placed in October 2016. Patient was on pured diet and receives supplemental bolus feeds via PEG depending on his mental percentage. Pertinent Non-Medical Issues Psychosocial:Patient was born and raised in [place], [place]. Patient has been twice and is currently to his second of 52 years. Patient has 3 adult children, 2 from his first marriage and 1 son from his current marriage. 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 Spiritual:- stated that they are spiritual and not shinto. Legal: Patient has a signed HCS- copy scanned and a Living Will (As stated by -Will bring in Copy) Ethical issues impacting care: None at this time . Important Contacts Spouse- Latosha Ramseh Son- Saulo Garcia [phone] . Prognosis Mr. Holguin is a 86 years old male with a past medical history of dementia, subdural hematoma, Parkinson's, PVD with left AKA, tobacco abuse, BPH, GERD, bed ridden with sacral decubitus ulcers, PEG and history of tracheostomy that was decannulated. Patient was sent from the alf to the emergency room due to tachypnea, elevated temperature and tachycardia, vomiting. In ER, Tmax of 101.7 degrees F per rectum, heart rate 129. Patient was also hypotensive. Patient was found to have acute kidney injury, RML and RLL pneumonia, and urinary tract infection.Given ongoing multiple comorbidities and current problems, patient remains at high risk for further complications, deterioration and decline. . Code Status: Full Code Plan PLAN: Legal decision maker: Patient has a history of dementia and demonstrates inability to make his own medical decisions. Patient has a designated HCS who is his Ally Ramesh. Goals: Aggressive. Patient`s who is HCS wants patient to be resuscitated and intubated if needed. Patient has a living will and patient`s indicated that until he is in a vegetative state she wants aggressive care. She stated that, " she will know when it`s time" and she is, "tired of hearing that patient is 86 years old" and his medical history and that he will not do well. CODE STATUS: Full Code SYMPTOMS: * Shortness of breath: Multifactorial. Presented with tachypnea, O2 saturation in the 70s on admission. Chest x-ray showing RML, RLL pneumonia. Patient was started on antibiotics Patient is currently on 40% Ventimask nasal cannula. O2 saturation currently high 90s. Patient on Albuterol Sulfate 2.5 mg Q 2hrs prn. Patient also on a bicarbonate continuos infusion. * Dysphagia: Patient has PEG tube. Was receiving bolus feeds and pureed diet at SNF. May benefit from storage management consultant consult. Now has pneumonia. Currently NPO. Recommending speech therapy evaluation. * Debility: Progressive. Patient is currently bedridden, with dementia, Parkinson's, PVD with left AKA and sacral decubitus ulcers. Patient may not be able to effectively participate in physical therapy given ongoing comorbidities. Patient is at high risk for further deterioration. Patient`s weight on Nov 01 2016=75.9kg , August 01, 2017=65kg. Palliative care will continue to follow the patient during hospital course as condition evolves, to assist patient/decision-maker with understanding of their medical conditions, weighing benefits/burdens of treatment options, for clarification of goals of treatment. Additionally will assist with any symptoms of palliative concern Thank you for the opportunity to participate in the care of Mr. Ramesh. Attestation To help prompt me to consider important information that might be impacting today's encounter and assessment, information from prior notes written by myself or my colleagues may have been "brought forward" into today's note. My signature on this note, however, is an attestation that I personally performed the exam, history, and/or decision-making noted today, and, unless otherwise indicated, the interactions with patient, family, and staff as well as the review of records all occurred today. I also attest that the listed assessment and stated plan reflect my best clinical judgment today based on the combination of historical information, prior notes, and today's exam/ interactions. When time spent is documented, it refers only to time spent today by the signer, or if indicated, combined time spent today by collaborating physician/nurse practitioner. . Juliano Lawrence Aug 01, 2017 10:46
[2017-08-01] MEDS: HEPARIN SODIUM - SQ 10,000 UNITS/ML VIAL SQ SCH ×2 (11:33→23:38)
--- NOTE | 2017-08-01 11:39 | PD.PROCEDR ---
Procedure Note Procedure Diagnosis: Septic shock Indications: Hemodynamic instability and acquisition for blood draws Consent: Obtained from Anesthesia: 50 mcgs fentanyl, 0.5 mg Versed IV Description of the Procedure: The patient was placed in the supine, mild- Trendelenburg position. The right subclavian area was prepped and draped sterilely. A 19g needle was inserted under negative pressure aspiration and dark venous blood was obtained. A guidewire was inserted easily without resistance. A small incision was made using a #11 blade. Using a modified Seldinger technique, the dilator and 7F catheter were advanced over the guidewire without resistance. All ports were aspirated and flushed, and had brisk blood return. The line was secured at 18 at the skin using 2-0 silk interrupted sutures. A Biopatch and Transparent sterile dressing were applied. There were no immediate complications noted. There was minimal EBL. The patient tolerated the procedure well. A Chest x-ray has been ordered. I personally performed the procedure. Griselda Bateman MD Aug 01, 2017 11:39
--- NOTE | 2017-08-01 11:49 | RADRPT ---
EXAM DATE/TIME: 08/01/2017 11:02 [facility] COMPARISON: CHEST SINGLE AP, July 31, 2017, 19:04. INDICATIONS : Post central line placement. MEDICAL HISTORY : Hypertension. SURGICAL HISTORY : Appendectomy. Prostatectomy. Carotid endarterectomy. ENCOUNTER: Initial ACUITY: 1 day PAIN SCORE: Non-responsive. LOCATION: Bilateral chest FINDINGS: A single view of the chest demonstrates the lungs to be symmetrically aerated without evidence of mas s, or effusion. Mild pulmonary vascular congestion. Right subclavian central line in good position. The cardiomediastinal contours are unremarkable. Osseous structures are intact. Aorta is quite tortu ous CONCLUSION: Mild pulmonary vascular congestion, unchanged. Sam Lares MD on August 01, 2017 at 11:47 Board Certified Radiologist. This report was verified electronically.
[2017-08-01] MEDS ORDERED: MIDAZOLAM HCL 5 MG/ML VIAL (1 ML) IV PUSH ONE (12:00)
[2017-08-01 12:34] LABS: BLOOD GAS BASE EXCESS -6.6 mmol/L (-2-2); BLOOD GAS CARBOXYHEMOGLOBIN 1.1 % (0-4); BLOOD GAS HCO3 18 mmol/L (22-26); BLOOD GAS METHEMOGLOBIN 0.8 % (0-2); BLOOD GAS O2 HGB SATURATION 90 % (90-100); BLOOD GAS OXYGEN CONTENT 11.7 Vol % (12.0-20.0); BLOOD GAS PCO2 32 mmHg (38-42); BLOOD GAS PO2 65 mmHg (61-120); BLOOD GAS TOTAL HGB 9.1 G/DL (12.0-16.0); CRITICAL VALUE NO; DRAW SITE RT BRACHIAL; FIO2 40 %; LITER FLOW 6 L/M; NUMBER OF ARTERIAL PUNCTURES 1; OXYGEN DEVICE Venti Mask; STAT NO; TEMP CORR TO 98.6; ULNAR PULSE PRESENT
[2017-08-01 13:26] LABS: C. DIFF EPI 027 PRESUMPTIVE NEGATIVE (NEGATIVE)
[2017-08-01 14:24] LABS: ALT (GPT) 313 U/L (12-78); ANION GAP 12 MEQ/L (5-15); AST (GOT) 577 U/L (15-37); BICARBONATE 16.6 MEQ/L (21.0-32.0); BLOOD UREA NITROGEN 34 MG/DL (7-18); CHLORIDE 112 MEQ/L (98-107); GLOMERULAR FILTRATION RATE 60 ML/MIN (>89); POTASSIUM 3.7 MEQ/L (3.5-5.1); SODIUM (NA) 141 MEQ/L (136-145)
[2017-08-01 14:27] LABS: ALKALINE PHOSPHATASE 80 U/L (45-117); TOTAL BILIRUBIN ADULT 0.3 MG/DL (0.2-1.0)
[2017-08-01] MEDS ORDERED: DIGOXIN 0.5 MG/2 ML VIAL ONE (17:16)
[2017-08-01] MEDS ORDERED: DIGOXIN 0.5 MG/2 ML VIAL IV PUSH ONE (17:30)
[2017-08-01] MEDS: VANCOMYCIN INJ 1,250 MG in SODIUM CHLOR 0.9% 250 ML INJ 250 ML IV SCH (17:50)
[2017-08-01] MEDS ORDERED: DILTIAZEM HCL 25 MG/5 ML VIAL IV PUSH ONE (19:00)
--- NOTE | 2017-08-01 19:09 | PD.CONS ---
cc: Joe Ellis Jr., MD HPI Service Orthopedic Surgeons Consult Requested By Primary Care Physician Unknown Admission Diagnosis Septic Shock; R Lung PNA Diagnoses: Chief Complaint: left AKA wound dehiscence History of Present Illness 86-year-old male with past medical history of dementia, Parkinson's, bedridden, sacral decubitus ulcers, PAD with left AKA, tobacco abuse, BPH, GERD , PEG, prior tracheostomy that has subsequently been decannulated who presents to [facility] emergency department with respiratory distress and sepsis. Over the past few months, he has had multiple hospital admissions with multiple sacral wound debridements and has been on antibiotics for chronic UTI. The patient is demented and is a very poor historian. His is currently not at the bedside. I saw him as an outpatient in the office a few weeks ago and recommended continued wound care for left AKA stump. ROS - General Review of Systems ROS Limitations: Clinical Condition, Altered Mental Status PFSH Past Family Social History Allergies: Coded Allergies: Fish Containing Products (Unverified Allergy, Severe, 04/25/17) levofloxacin (Unverified Allergy, Severe, 04/25/17) lorazepam (Unverified Allergy, Severe, 04/25/17) morphine (Unverified Allergy, Severe, 04/25/17) penicillin G (Unverified Allergy, Severe, 04/25/17) sulfamethoxazole (Unverified Allergy, Severe, hives, 04/25/17) trimethoprim (Unverified Allergy, Severe, hives, 04/25/17) acetaminophen (Verified Allergy, Mild, ITCHING, 07/31/17) hydrocortisone (Unverified Allergy, Unknown, UNKNOWN, 04/25/17) Past Medical History Coronary artery disease with RI in 1997 with prior stents Parkinson's disease Dementia Paroxysmal atrial fibrillation Hypertension GERD with esophagitis Hyperglycemia associated with tube feeds Records indicate he has a history of COPD but his insisted he does not Iron deficiency anemia Vitamin D deficiency Constipation Left AKA Allergic rhinitis Sacral decubitus ulcers - Wound care by Dr. Benjamin Past Surgical History Appendectomy TURP Right carotid endarterectomy Multiple sacral debridements PEG Trach 10/2016 Left knee arthroscopy AKA Dr. Ellis Bilateral cataract surgery Past Family Social History Past Medical History Diabetes mellitus type 2 Hypertension Dementia Subdural hematoma Parkinson`s disease CAD with RI in 1997 with prior stents PAD with left AKA Paroxysmal Atrial fibrillation Kidney stones Stage II left trochanter ulcer-Wound care by Dr. Benjamin Stage III coccyx ulcer Recurrent UTI Records indicate he has a history of COPD though his denies BPH GERD Constipation history of C. Difficile in October of 2016 PEG . Past Surgical History Appendectomy Bilateral Cataract surgery TURP Hx of Tracheostomy placement, October 2016 PEG placement, October 2016 Carotid Artery Endarterectomy Left knee arthroscopy Left AKA Dr. Ellis Multiple sacral debridements Right subdural Merlin hole and subdural hematoma evacuation . Allergies: Coded Allergies: Fish Containing Products (Unverified Allergy, Severe, 04/25/17) levofloxacin (Unverified Allergy, Severe, 04/25/17) lorazepam (Unverified Allergy, Severe, 04/25/17) morphine (Unverified Allergy, Severe, 04/25/17) penicillin G (Unverified Allergy, Severe, 04/25/17) sulfamethoxazole (Unverified Allergy, Severe, hives, 04/25/17) trimethoprim (Unverified Allergy, Severe, hives, 04/25/17) acetaminophen (Verified Allergy, Mild, ITCHING, 07/31/17) hydrocortisone (Unverified Allergy, Unknown, UNKNOWN, 04/25/17) Active Ordered Medications Current Medications Medications (Trade) Dose Ordered Sig/Jaime Route Start Time Stop Time Status Last Admin Norepinephrine Bitartrate 250 ml @ 7.5 mls/hr TITRATE PRN IV 07/31/17 21:15 (Brethine Inj) 1 mg UNSCH PRN SQ 07/31/17 21:15 (NS Flush) 2 ml UNSCH PRN IV FLUSH 07/31/17 21:15 (NS Flush) 2 ml BID IV FLUSH 08/01/17 09:00 08/01/17 08:50 (Zofran Inj) 4 mg Q6H PRN IV PUSH 07/31/17 21:15 (Heparin Inj) 5,000 units Q12H SQ 07/31/17 22:00 08/01/17 11:33 Miscellaneous Information 1 Q361D XX 11/20/17 21:15 (Chlorhexidine 2% Cloth) 3 pack Taper DAILY@04 TOP 08/01/17 04:00 07/28/18 03:59 08/01/17 04:00 (Chlorhexidine 2% Cloth) 3 pack UNSCH PRN TOP 07/31/17 21:15 (Azucena-Colace) 1 tab BID PO 08/01/17 09:00 08/01/17 08:49 (Milk Of Magnesia Liq) 30 ml Q12H PRN PO 07/31/17 21:15 (Senokot) 17.2 mg Q12H PRN PO 07/31/17 21:15 (Dulcolax Supp) 10 mg DAILY PRN RECTAL 07/31/17 21:15 (Lactulose Liq) 30 ml DAILY PRN PO 07/31/17 21:15 Pharmacy Profile Note 0 ml @ 0 mls/hr UNSCH OTHER 07/31/17 21:15 Aztreonam 2000 mg/ Sodium Chloride 100 ml @ 200 mls/hr Q8H IV 08/01/17 04:00 08/01/17 11:33 Metronidazole 100 ml @ 100 mls/hr Q8H IV 08/01/17 00:00 08/01/17 15:29 Sodium Bicarbonate 75 meq/Sodium Chloride 1,075 ml @ 125 mls/hr Q8H36M IV 08/01/17 03:00 08/01/17 12:10 (Aricept) 10 mg HS PO 08/01/17 21:00 (Ferrous Sulfate) 325 mg TIDPC PO 08/01/17 09:30 08/01/17 17:50 (Vitamin C) 500 mg DAILY PO 08/01/17 09:00 08/01/17 08:50 (Duoneb Neb) 1 ampule Q6HR NEB NEB 08/01/17 04:00 08/01/17 16:38 (Albuterol Neb) 2.5 mg Q2HR NEB PRN NEB 08/01/17 03:00 (D50w (Vial) Inj) 50 ml UNSCH PRN IV PUSH 08/01/17 03:15 (Glucagon Inj) 1 mg UNSCH PRN OTHER 08/01/17 03:15 (NovoLOG SUPPLEMENTAL SCALE) 1 Q6H SQ 08/01/17 03:15 Fluconazole/ Sodium Chloride 50 ml @ 50 mls/hr Q24H IV 08/01/17 05:00 08/01/17 05:32 (Lactinex Pkt) 1 gm TID PEG 08/01/17 09:00 08/01/17 17:22 Vancomycin HCl 1250 mg/Sodium Chloride 262.5 ml @ 250 mls/hr Q24H IV 08/01/17 18:00 08/01/17 17:50 Miscellaneous Information SPECIFIC LAB TO BE JERRY... ONCE ONCE .XX 08/03/17 17:45 08/03/17 17:46 (Pepcid Inj) 10 mg Q12H IV PUSH 08/01/17 21:00 (Cardizem Inj) 20 mg ONCE ONCE IV PUSH 08/01/17 19:00 08/01/17 19:01 08/01/17 18:57 Diltiazem HCl 125 mg/Sodium Chloride 125 ml @ 5 mls/hr TITRATE PRN IV 08/01/17 19:00 Reported Meds & Active Scripts Active Reported Zoloft (Sertraline HCl) 25 Mg Tab 25 Mg PO BID Lisinopril 10 Mg Tab 10 Mg PO DAILY Donepezil 10 Mg Tab 10 Mg PO HS Neurontin (Gabapentin) 100 Mg Cap 100 Mg PO HS Melatonin 5 Mg Tab 5 Mg PO HS Minocycline (Minocycline HCl) 100 Mg Cap 100 Mg PO BID Cefdinir 300 Mg Cap 300 Mg PO BID Florajen Bifidoblend Capsule (Bifidobacter. Bifidum/B.longum) 460 Mg Capsule 3 Cap PEG BID Vitamin C (Ascorbic Acid) 250 Mg Tab 250 Mg PEG Zofran (Ondansetron HCl) 4 Mg Tab 4 Mg PO Q8HR PRN Saline Nasal [place] (Sodium Chloride) 0.65% [place] 2 [place] EACH NARE DIRECTED PRN Ferrous Sulfate 325 Mg (65 Mg Iron) Tablet 325 Mg PO TIDPC [Glucerna 1.5 ] 70 Ml PEG Ibuprofen 400 Mg Tab 400 Mg PO Q8H PRN Benadryl Allergy (Diphenhydramine HCl) 25 Mg Cap Ferrous Sulfate 325 Mg (65 Mg Iron) Tablet 325 Mg PO TIDPC Digestive Enzyme (Digestive Enzymes) 1 Cap Cap 1 Cap PO TID Albuterol Neb (Albuterol Sulfate) 2.5 Mg/3 Ml Neb 2.5 Mg NEB Q4HR NEB While awake Alprazolam 0.25 Mg Tab 0.25 Mg PO DAILY PRN Family History Mother had angina -unsure of cause of Sister had diabetes. . Social History Quit smoking 1997. No ETOH or illicit drug use. Physical Exam Vital Signs Vital Signs Date Time Temp Pulse Resp B/P (MAP) Pulse Ox O2 Delivery O2 Flow Rate FiO2 08/01/17 18:00 143 08/01/17 16:00 97.5 97 26 114/56 (75) 97 08/01/17 16:00 97 08/01/17 14:00 95 08/01/17 12:00 97.2 93 20 117/57 (77) 99 08/01/17 12:00 91 08/01/17 10:00 99 08/01/17 09:40 98 Venturi Mask 6.00 40 08/01/17 08:00 97.5 106 20 127/56 (79) 100 08/01/17 08:00 106 08/01/17 07:43 97 Venturi Mask 6.00 50 08/01/17 07:00 100 Venturi Mask 6.00 08/01/17 06:00 97 08/01/17 04:00 99 08/01/17 04:00 98.0 99 20 89/49 (62) 99 08/01/17 02:00 90 08/01/17 00:00 98.1 102 24 119/57 (77) 97 08/01/17 00:00 102 07/31/17 23:15 97.9 97 22 107/55 (72) 98 07/31/17 23:15 98 Venturi Mask 6.00 50 07/31/17 23:15 97 07/31/17 22:54 07/31/17 22:52 100 22 101/56 (71) 93 Venturi Mask 7.00 07/31/17 21:57 93 Venturi Mask 50 07/31/17 21:52 97.9 108 22 157/67 (97) 94 Venturi Mask 7.00 07/31/17 21:35 98 Non-Rebreather 12.00 07/31/17 21:24 98.6 104 22 139/62 (87) 99 Non-Rebreather 15.00 07/31/17 20:59 99.1 108 22 119/86 (97) 97 Non-Rebreather 15.00 07/31/17 20:20 100.0 108 22 121/85 (97) 100 Non-Rebreather 15.00 07/31/17 20:03 100.2 114 22 121/55 (77) 96 Non-Rebreather 15.00 07/31/17 19:36 100.6 121 22 82/49 (60) 95 Non-Rebreather 15.00 07/31/17 19:08 100.6 120 22 92/48 (63) 94 Non-Rebreather 15.00 Laboratory Laboratory Tests Test 07/31/17 19:35 07/31/17 20:55 07/31/17 23:40 08/01/17 00:25 Prothrombin Time 13.4 Prothromb Time International Ratio 1.2 Activated Partial Thromboplast Time 28.9 Lactic Acid Level 7.6 5.5 Nasal Screen MRSA (PCR) MRSA DETECTED Test 08/01/17 00:28 08/01/17 01:45 08/01/17 03:50 08/01/17 08:26 Blood Gas Puncture Site RT BRACHIAL Blood Gas Patient Temperature 98.6 Blood Gas HCO3 15 Blood Gas Base Excess -10.3 Blood Gas Oxygen Saturation 88 Arterial Blood pH 7.31 Arterial Blood Partial Pressure CO2 30 Arterial Blood Partial Pressure O2 63 Arterial Blood Oxygen Content 12.1 Arterial Blood Carboxyhemoglobin 0.7 Arterial Blood Methemoglobin 1.0 Blood Gas Hemoglobin 9.7 Oxygen Delivery Device Venti Mask Blood Gas Liter Flow 7 Blood Gas Inspired Oxygen 50 Troponin I 0.54 0.48 White Blood Count 9.2 Red Blood Count 3.19 Hemoglobin 9.3 Hematocrit 29.4 Mean Corpuscular Volume 92.3 Mean Corpuscular Hemoglobin 29.2 Mean Corpuscular Hemoglobin Concent 31.6 Red Cell Distribution Width 17.4 Platelet Count 359 Mean Platelet Volume 8.2 Neutrophils (%) (Auto) 88.1 Lymphocytes (%) (Auto) 8.1 Monocytes (%) (Auto) 3.5 Eosinophils (%) (Auto) 0.1 Basophils (%) (Auto) 0.2 Neutrophils # (Auto) 8.1 Lymphocytes # (Auto) 0.7 Monocytes # (Auto) 0.3 Eosinophils # (Auto) 0.0 Basophils # (Auto) 0.0 CBC Comment DIFF FINAL Differential Comment Blood Urea Nitrogen 33 34 Creatinine 1.19 1.15 Random Glucose 102 90 Total Protein 5.8 6.1 Albumin 1.8 1.9 Calcium Level 7.3 7.5 Phosphorus Level 2.6 Magnesium Level 1.9 Alkaline Phosphatase 74 80 Aspartate Amino Transf (AST/SGOT) 568 577 Alanine Aminotransferase (ALT/SGPT) 276 313 Total Bilirubin 0.2 0.3 Sodium Level 140 141 Potassium Level 3.6 3.7 Chloride Level 110 112 Carbon Dioxide Level 18.7 16.6 Anion Gap 11 12 Estimat Glomerular Filtration Rate 58 60 Lactic Acid Level 3.7 3.5 Protein Corrected Calcium 8.0 Test 08/01/17 09:05 08/01/17 12:22 Stool C. difficile Toxin (PCR) NEGATIVE Stl C. difficile Toxin Epiderm 027 PRESUMPTIVE NEGATIVE Blood Gas Puncture Site RT BRACHIAL Blood Gas Patient Temperature 98.6 Blood Gas HCO3 18 Blood Gas Base Excess -6.6 Blood Gas Oxygen Saturation 90 Arterial Blood pH 7.37 Arterial Blood Partial Pressure CO2 32 Arterial Blood Partial Pressure O2 65 Arterial Blood Oxygen Content 11.7 Arterial Blood Carboxyhemoglobin 1.1 Arterial Blood Methemoglobin 0.8 Blood Gas Hemoglobin 9.1 Oxygen Delivery Device Venti Mask Blood Gas Liter Flow 6 Blood Gas Inspired Oxygen 40 Date/Time Source Procedure Growth Status 07/31/17 18:17 Blood Peripheral Aerobic Blood Culture - Preliminary NO GROWTH IN 1 DAY Resulted 07/31/17 18:17 Blood Peripheral Anaerobic Blood Culture - Preliminary NO GROWTH IN 1 DAY Resulted 07/31/17 19:35 Nasal Washing Influenza Types A,B Antigen (JAKOB) - Final NEGATIVE FOR FLU A AND B ANTIGEN.... Complete 07/31/17 18:44 Urine Catheterized Urine Urine Culture - Final 50-100,000 CFU/ML MIXED GRAM POSITIVE... Complete Result Diagram: 08/01/17 0350 08/01/17 0826 Imaging demented. no acute distress. patient on oxygen Head/Neck: normocephalic atraumatic Bilateral upper extremity: grossly neuro intact. Good cap refill. Right lower extremity: grossly neuro intact. Palpable but faint dorsalis pedis and posterior tibial pulse. Soft compartments. Left lower extremity: AKA stump with small 1 cm wound dehiscence and small protruding piece of medial cortex exposed. No erythema. No drainage. No induration. no signs of infection. Assessment & Plan Assessment and Plan 86-year-old male with a significantly complicated past medical history including dementia, Parkinson's, bedridden, sacral decubitus ulcers, PAD with left AKA, tobacco abuse, BPH, GERD, presented with septic shock and respiratory distress. He is status post left above knee amputation. The patient has a poor protoplasm with low albumin, multiple decubitus chronic ulcers and very low ability to heal open wounds. After a long discussion with Dr. Bateman, the clothing consultant and based on this patient's guarded prognosis and unstable overall health, surgical intervention is not recommended at this time. I will therefore perform a bedside irrigation debridement under local anesthesia with wound closure. I will discuss my plan with this and obtain consent. Joe Ellis Jr., MD Aug 01, 2017 19:09
--- NOTE | 2017-08-01 19:27 | EKG ---
Date Performed: 07/31/2017 Time Performed: 17:49:54 PTAGE: 86 years EKG: Sinus tachycardia Ventricular premature complexes Possible left ventricular hypertrophy wit h ST-T wave changes secondary to repolarization abnormality PREVIOUS TRACING : 11/01/[address]-T wave changes are tremendously improved from the prior tracing. Clinical correlation needed. DOCTOR: Guille Wells Interpretating Date/Time 08/01/2017 19:25:34
[2017-08-01] MEDS: DILTIAZEM INJ 125 MG in SODIUM CHLORIDE 0.9% INJ 100 ML IV PRN (21:02)
[2017-08-01] MEDS: DONEPEZIL HCL 5 MG TAB PO SCH (23:38)
[2017-08-01] MEDS: FAMOTIDINE 20 MG/2 ML VIAL IV PUSH SCH (23:38)
[2017-08-02] VITALS (18 sets, daily range): BP systolic 113–156; BP diastolic 55–69; PULSE 73–118; RESP 13–26; TEMP 97.2–98.8; O2SAT 94–100
[2017-08-02] MEDS: DEXTROSE 50% IN WATER 50 ML VIAL(D50) IV PUSH PRN ×2 (00:02→08:48)
[2017-08-02] MEDS: metroNIDAZOLE 500 MG INJ 100 ML IV SCH ×3 (01:26→15:01)
[2017-08-02] MEDS: INSULIN ASPART SUPPLEMENTAL SCALE SQ SCH ×4 (03:15→20:55)
[2017-08-02] MEDS: RESP: ALBUTEROL 2.5 MG/IPRATROPIUM 0.5 MG NEB (SCH) NEB ×4 (03:16→20:59)
[2017-08-02 05:22] LABS: BLOOD GAS BASE EXCESS -5.9 mmol/L (-2-2); BLOOD GAS CARBOXYHEMOGLOBIN 0.9 % (0-4); BLOOD GAS HCO3 19 mmol/L (22-26); BLOOD GAS O2 HGB SATURATION 82 % (90-100); BLOOD GAS OXYGEN CONTENT 11.1 Vol % (12.0-20.0); BLOOD GAS PCO2 38 mmHg (38-42); BLOOD GAS PO2 53 mmHg (61-120); BLOOD GAS TOTAL HGB 9.6 G/DL (12.0-16.0); CRITICAL VALUE YES; OXYGEN DEVICE Venti Mask; TEMP CORR TO 98.6
[2017-08-02 05:23] LABS: DRAW SITE RT RADIAL; FIO2 40 %; LITER FLOW 6 L/M; NUMBER OF ARTERIAL PUNCTURES 1; STAT NO; ULNAR PULSE PRESENT
[2017-08-02 05:33] LABS: AUTOMATED NEUTROPHIL # 13.8 TH/MM3 (1.8-7.7); BASOPHIL % 0.2 % (0.0-2.0); EOSINOPHIL % 0.1 % (0.0-4.0); HEMATOCRIT 28.3 % (39.0-51.0); LYMPH % 3.3 % (9.0-44.0); LYMPHOCYTE # 0.5 TH/MM3 (1.0-4.8); MEAN CELL VOLUME 91.1 FL (80.0-100.0); MEAN CORPUSCULAR HGB CONC 31.9 % (32.0-36.0); MONO % 2.6 % (0.0-8.0); NEUT % 93.8 % (16.0-70.0); PLATELET COUNT 348 TH/MM3 (150-450); RED CELL DISTRIBUTION WIDTH 17.9 % (11.6-17.2); WHITE BLOOD COUNT 14.7 TH/MM3 (4.0-11.0)
[2017-08-02 05:36] LABS: HEMO FLAGS AUTO DIFF
[2017-08-02] MEDS: DILTIAZEM INJ 125 MG in SODIUM CHLORIDE 0.9% INJ 100 ML IV PRN (05:37)
--- NOTE | 2017-08-02 05:38 | RADRPT ---
EXAM DATE/TIME: 08/02/2017 03:51 [facility] COMPARISON: CHEST SINGLE AP, August 01, 2017, 11:02. INDICATIONS : Shortness of breath. MEDICAL HISTORY : Hypertension. SURGICAL HISTORY : Appendectomy. Prostatectomy. Carotid endarterectomy. ENCOUNTER: Subsequent ACUITY: 3 days PAIN SCORE: 0/10 LOCATION: Bilateral chest FINDINGS: Patchy air space opacities persist diffusely of both lungs, slightly worse in the interim. No large e ffusion. No pneumothorax. Heart size stable and within normal limits. Right subclavian central venous catheter remains in place, tip in the superior vena cava. CONCLUSION: Diffuse bilateral air space opacities are slightly worse. Arvind Márquez MD on August 02, 2017 at 5:36 Board Certified Radiologist. This report was verified electronically.
[2017-08-02] MEDS: AZTREONAM INJ 2,000 MG in SODIUM CHLORIDE 0.9% INJ 100 ML IV SCH ×3 (05:53→20:54)
[2017-08-02] MEDS: FLUCONAZOLE 100 MG PREMIX BAG 50 ML IV SCH (05:53)
[2017-08-02 07:01] LABS: BANDS 47 % (0-6); DOHLE BODIES PRESENT (NONE SEEN); METAMYELOCYTES 19 % (0-1); NEUTROPHIL # MANUAL DIFF 13.8 TH/MM3 (1.8-7.7); PLATELET ESTIMATE SMEAR NORMAL (NORMAL); POLYS (SEG NEUTROPHILS) 28 % (16-70); WBC DIFF SAMPLE 100
[2017-08-02 07:02] LABS: PLATELET MORPHOLOGY NORMAL (NORMAL)
[2017-08-02 07:03] LABS: SCAN/DIFF FINAL DIFF MANUAL
[2017-08-02 08:07] LABS: POTASSIUM 3.1 MEQ/L (3.5-5.1)
[2017-08-02] MEDS ORDERED: FUROSEMIDE 20 MG/2 ML VIAL IV PUSH ONE (08:45)
[2017-08-02] MEDS: SODIUM CHLORIDE 0.9% FLUSH 10 ML FLUSH IV FLUSH SCH ×2 (08:47→20:55)
[2017-08-02] MEDS: DOCUSATE SODIUM 50 MG/SENNA 8.6 MG TAB PO SCH ×2 (08:48→20:57)
[2017-08-02] MEDS: FERROUS SULFATE 325 MG (65 MG ELEMENTAL IRON) TAB PO SCH ×3 (08:48→17:54)
[2017-08-02] MEDS: LACTOBACILLUS ACIDOPHILUS 1 GM PACKET PEG SCH ×3 (08:48→17:54)
[2017-08-02] MEDS: ASCORBIC ACID 500 MG TAB PO SCH (08:48)
[2017-08-02] MEDS: FAMOTIDINE 20 MG/2 ML VIAL IV PUSH SCH ×2 (08:48→20:54)
[2017-08-02] MEDS: SODIUM BICARBONATE 8.4% INJ 75 MEQ in SODIUM CHLOR 0.45% 1000 ML INJ 1,000 ML IV SCH (08:49)
[2017-08-02] MEDS: HEPARIN SODIUM - SQ 10,000 UNITS/ML VIAL SQ SCH ×2 (08:49→20:54)
[2017-08-02] MEDS ORDERED: MAGNESIUM SULFATE INJ 4 GM in SODIUM CHLORIDE 0.9% INJ 92 ML IV PRN (09:15)
[2017-08-02] MEDS ORDERED: POTASSIUM PHOSPHATE MONOBASIC 500 MG TAB PO/TUBE PRN (09:15)
[2017-08-02] MEDS ORDERED: POTASSIUM PHOSPHATE INJ 30 MMOL in SODIUM CHLOR 0.9% 250 ML INJ 250 ML IV PRN (09:15)
[2017-08-02] MEDS ORDERED: MAGNESIUM OXIDE 400 MG TAB PO PRN (09:15)
[2017-08-02] MEDS ORDERED: POTASSIUM CHLOR 40 MEQ PREMIX 100 ML IV PRN (09:15)
[2017-08-02] MEDS ORDERED: MAGNESIUM SULFATE INJ 2 GM in SODIUM CHLORIDE 0.9% INJ 96 ML IV PRN (09:15)
[2017-08-02] MEDS ORDERED: POTASSIUM CHLORIDE 25 MEQ EFFERVESCENT TAB PO ONE (09:15)
[2017-08-02] MEDS ORDERED: POTASSIUM CHLORIDE 25 MEQ EFFERVESCENT TAB PO PRN (09:15)
[2017-08-02] MEDS ORDERED: POTASSIUM CHLOR 20 MEQ PREMIX 100 ML IV PRN (09:15)
[2017-08-02] MEDS ORDERED: SODIUM PHOSPHATE INJ 30 MMOL in SODIUM CHLOR 0.9% 250 ML INJ 240 ML IV PRN (09:15)
[2017-08-02] MEDS ORDERED: POTASSIUM PHOSPHATE MONOBASIC 500 MG TAB PO PRN (09:15)
--- NOTE | 2017-08-02 09:44 | HHI.CCPN ---
Subjective Remarks/Hospital Course 86-year-old male with past medical history of dementia, Parkinson's, bedridden, sacral decubitus ulcers, PAD with left AKA, tobacco abuse, BPH, GERD , PEG, prior tracheostomy that has subsequently been decannulated who presents to [facility] emergency department with respiratory distress. He is on a pured diet and gets supplemental bolus feeds at mealtime depending on how much that he takes by mouth. Today he did not have very much appetite, did not eat much, received a bolus feed. He then had an episode of vomiting and subsequently had tachypnea. He desaturated into the 70s on room air. He was placed on supplemental oxygen. He had rigors and fever and therefore was brought to [facility] emergency Department was where she was found to be in septic shock with multiorgan dysfunction. He has right middle lobe and right lower lobe pneumonia and urinary tract infection. Temperature is 100.6. Blood pressure is 82/49 with a lactic acid of 8.1. He is in acute kidney injury with creatinine 1.35. He has not had any diarrhea. He denies abdominal pain but has voluntary guarding on exam. (History from him is almost non existent, this is based on verbal and nonverbal cues interpreted by his ) He received vancomycin and aztreonam in the emergency department. He has received 3 L normal saline bolus. Hospitalized at [place] in October 2016 with C. difficile and HCAP with respiratory failure. He was intubated and extubated several times and ultimately underwent tracheostomy 11/15/16 and PEG. He was recently hospitalized at [facility] 1-1/2 months ago related to infection of his sacral wound which has had multiple debridements. Reportedly has recently been on antibiotics for UTI. denies known ho MDRO. Subjective: 08/01: Tmax 99.1. Patient alert to name only, denies pain. O2 requirements decreased currently on Ventimask at 40%. Patient having multiple loose bowel movements, C. difficile PCR pending. 08/02: Afebrile. Patient noted to have increasing O2 requirements this a.m. , chest x-ray shows worsening opacities now with leukocytosis and bandemia. Patient noted to have gram-negative bacteremia. Patient currently on atreozonam and metronidazole. ID consulted appreciate recommendations. CDiff PCR noted to be negative. Today afternoon the patient was noted to go into atrial fibrillation with a heart rate in the 140s-160s was placed on a Cardizem infusion ,now rate is controlled will be transitioned to PO Cardizem. Metabolic acidosis slightly improved sodium bicarbonate drip decreased to 30 cc/hour. Plan for revision of left AKA stump this a.m. at the bedside with Dr. Connelly, under local anesthesia. Objective Vital Signs Date Time Temp Pulse Resp B/P (MAP) Pulse Ox O2 Delivery O2 Flow Rate FiO2 08/02/17 08:00 97.8 86 26 149/69 (95) 100 08/02/17 07:00 Non-Rebreather 15.00 08/01/17 20:00 40 Intake and Output 08/02/17 08/02/17 08/02/17 07:59 15:59 23:59 Intake Total 1487 ml Output Total 500 ml Balance 987 ml Result Diagram: 08/02/17 0520 08/02/17 0730 Other Results Microbiology Date/Time Source Procedure Growth Status 07/31/17 19:35 Nasal Washing Influenza Types A,B Antigen (JAKOB) - Final NEGATIVE FOR FLU A AND B ANTIGEN.... Complete 07/31/17 18:44 Urine Catheterized Urine Urine Culture - Final 50-100,000 CFU/ML MIXED GRAM POSITIVE... Complete Laboratory Tests Test 08/01/17 12:22 08/02/17 05:13 Blood Gas Puncture Site RT BRACHIAL RT RADIAL Blood Gas Patient Temperature 98.6 98.6 Blood Gas HCO3 18 mmol/L (22-26) 19 mmol/L (22-26) Blood Gas Base Excess -6.6 mmol/L (-2-2) -5.9 mmol/L (-2-2) Blood Gas Oxygen Saturation 90 % (90-100) 82 % (90-100) Arterial Blood pH 7.37 (7.380-7.420) 7.33 (7.380-7.420) Arterial Blood Partial Pressure CO2 32 mmHg (38-42) 38 mmHg (38-42) Arterial Blood Partial Pressure O2 65 mmHg (61-120) 53 mmHg (61-120) Arterial Blood Oxygen Content 11.7 Vol % (12.0-20.0) 11.1 Vol % (12.0-20.0) Arterial Blood Carboxyhemoglobin 1.1 % (0-4) 0.9 % (0-4) Arterial Blood Methemoglobin 0.8 % (0-2) 1.0 % (0-2) Blood Gas Hemoglobin 9.1 G/DL (12.0-16.0) 9.6 G/DL (12.0-16.0) Oxygen Delivery Device Venti Mask Venti Mask Blood Gas Liter Flow 6 L/M 6 L/M Blood Gas Inspired Oxygen 40 % 40 % Imaging Last Impressions Chest X-Ray 07/31/171731 Signed Impressions: Service Date/Time: Monday, July 31, 2017 19:04 - CONCLUSION: Possible right midlung infiltrate. Recommend followup films. Aneudy Wong MD Abdomen/Pelvis CT 07/31/17 0000 Signed Impressions: Service Date/Time: Monday, July 31, 2017 22:53 - CONCLUSION: 1. CT suggests mild left-sided colitis in the proper clinical setting. No obstruction , perforation or abscess. 2. Thick waledl urinary bladder. Masters catheter present. 3. Right base infiltrate and small right, tiny left pleural effusions. 1. Arvind Márquez MD Last 24 hours Impressions Chest X-Ray 07/31/171731 Signed Impressions: Service Date/Time: Monday, July 31, 2017 19:04 - CONCLUSION: Possible right midlung infiltrate. Recommend followup films. Aneudy Wong MD Objective Remarks GENERAL: Elderly thin frail chronically ill appearing male with contracture on nonrebreather mass SKIN: Warm and dry. Multiple wound openings to include sacral, bilateral greater trochanters and bone protrusion left AKA HEAD: Atraumatic. Normocephalic. EYES: Right pupil 1 mm and sluggishly reactive. Left pupil is about 3 mm, aniscoria, appears nonreactive. No scleral icterus. No injection or drainage. ENT: No nasal bleeding or discharge. Mucous membranes dry NECK: Trachea midline. No JVD. Right carotid endarterectomy scar well-healed. CARDIOVASCULAR: Irregular with sinus rhythm on the monitor with PACs and multifocal PVCs. Heart sounds are very distant. No murmur appreciated RESPIRATORY: Bilateral chest excursion. No accessory muscle use. Coarse rhonchi bilateral lung fonseca. No wheeze or Rales. GASTROINTESTINAL: Abdomen scaphoid, PEG tube in place with site benign appearing , no drainage. He has voluntary guarding with palpation of right abdomen, no apparent rebound. Bowel sounds hypoactive. : Masters rich urine MUSCULOSKELETAL: Extremities without clubbing, cyanosis. He is s/p L AKA. There is ulceration of stump with small spike of bone protruding through, no exudate. There is about 6x7 cm sacral decubitus wound stage IV s/p debridement with no fluctuance or surrounding cellulitis.There is ~2 cm ulcerations bilateral trochanters without drainage. NEUROLOGICAL: Awake, RASS-1, R Srinivasan this a.m.Upper extremities with increased flexor tone bilaterally, moves spontaneously. R lower extremity contracted. Urinary Catheter: Yes Masters insert reason: Stage III/IV Press Ulcer Date of Insertion: Aug 01, 2017 Vascular Central Line Catheter: Yes Date of Insertion: Aug 01, 2017 Line: Central Venous Catheter Side: Right Location: Subclavian Reason for Continuation Medication administration A/P Problem List: (1) History of lucien hole surgery ICD Code: Z98.89 - History of lucien hole surgery Status: Chronic (2) Septic shock ICD Code: A41.9 - Sepsis, unspecified organism; R65.21 - Severe sepsis with septic shock Status: Acute (3) UTI (urinary tract infection) ICD Code: N39.0 - UTI (urinary tract infection) Status: Acute (4) Dementia ICD Code: F03.90 - Dementia Status: Chronic (5) HTN (hypertension) ICD Code: I10 - HTN (hypertension) Status: Chronic (6) CKD (chronic kidney disease), stage III ICD Code: N18.3 - CKD (chronic kidney disease), stage III Status: Chronic (7) HCAP (healthcare-associated pneumonia) ICD Code: J18.9 - Pneumonia, unspecified organism Status: Acute (8) Decubital ulcer ICD Code: L89.90 - Pressure ulcer of unspecified site, unspecified stage Status: Chronic (9) S/P AKA (above knee amputation) unilateral ICD Code: Z89.619 - Acquired absence of unspecified leg above knee (10) History of BPH ICD Code: Z87.438 - History of BPH Status: Chronic (11) CAD (coronary artery disease) ICD Code: I25.10 - Atherosclerotic heart disease of [place] coronary artery without angina pectoris Status: Chronic (12) Bed confinement status ICD Code: Z74.01 - Bed confinement status Status: Chronic (13) Dysphagia ICD Code: R13.10 - Dysphagia, unspecified Status: Chronic (14) Leukocytosis ICD Code: D72.829 - Leukocytosis Status: Acute Assessment and Plan NEURO: Acute toxic metabolic encephalopathy overlying Dementia Parkinson's disease Bedridden with contractures H/O R subdural with lucien hole and SDH evacuation 04/[address] Sloan H/O R CEA Continue donepezil 10 mg by mouth daily at bedtime Hold sedative/non essential medications but he is chronically on melatonin 5 mg daily at bedtime, Xanax 0.25 mg daily, Zoloft 25 twice a day RESP: Respiratory distress with acute hypoxemia Healthcare associated pneumonia versus aspiration History of tobacco abuse Small right pleural effusion Prior tracheostomy s/p decannulation DuoNeb every 6 hours. Albuterol every 2 hours as needed. 08/01 Chest x-ray demonstrates worsening , now diffuse bilateral opacities. Antibiotics as per below CV: Coronary artery disease with prior stents Essential hypertension Paroxysmal atrial fibrillation Septic shock Lactic acidemia PAD Hold lisinopril due to hypotension and NAYE He is not chronically anticoagulated for A. fib 07/31 A. fib RVR placed on Cardizem infusion, with 5 mg/hour we'll transition to 80 mg every 6 hours, normotensive Received 3 L normal saline bolus in the ED 07/31. Resolving metabolic acidosis with bicarbonate of 20 and base deficit of 5.9 Decreased 0.45 NaCl with 75 mEq of bicarbonate 30 mL per hour GI: Dysphagia Colitis Diverticulosis Loose stools On pured diet at baseline. Nothing by mouth. 08/01 C. difficile PCR-negative Has PEG for supplemental feeds. Will hold tube feeds for now. Lipase negative. Obtained CT abdomen and pelvis which demonstrated colitis descending colon. Mesenteric ischemia is a consideration. Will treat supportively with fluid resuscitation and abx. Overall prognosis poor and does not appear to be an operative candidate. FEN/RENAL: Acute kidney injury BPH s/p TURP No hydronephrosis noted on CT scan. Fluid resuscitation as per above. Insert Masters which is necessary to monitor urine output as marker of organ perfusion in the setting of septic shock and renal failure, and multiple open wounds ID: HCAP versus aspiration UTI/cystitis - u/a with many yeast. Followup culture. Diflucan 100 mg IV daily , adjusted for renal function. Sacral and hip decubitus ulcers present on admission Influenza negative Check urine legionella and pneumococcal antigen Follow-up urine and blood cultures. Obtain sputum culture Vancomycin pharmacy dosing. Calculated creatinine clearance is 37. Aztreonam 2 g IV every 8 hours and adjust if creatinine clearance drops below 30. (PCN allergy) Flagyl 500 mg IV every 8 hours for anaerobic coverage. 08/01 C diff PCR-negative ID consulted MSK: S/P L AKA - 07/31 stump with poor healing bone protrusion. states she has been told before he was not an operative candidate for revision of the wound, however perhaps could rongeur at bedside? Patient known to Dr. Ellis who performed surgery, so will consult ortho for recommendations. Specialty Bed 08/01-discussed with Dr. Connelly yesterday plan for revision AKA under local anesthesia at bedside HEME: Chronic iron deficiency anemia Reactive thrombocytosis Continue Ferrous sulfate 325 mill grams by mouth 3 times a day ENDO: Hyperglycemia associated with tube feed administration Monitor bedside glucose every 6 hours and initiate low-dose insulin sliding scale as indicated. PROPH: Heparin subcutaneous for DVT prophylaxis. Famotidine 20mg BID ACCESS: Has peripheral IV. May require central line 07/31 right subclavian Patient is critically ill with septic shock and multiorgan dysfunction who is at risk for further decompensation or . states he has a living will and that she is his healthcare surrogate. She states that he had stated that he wanted to be FULL CODE. She states she would place consideration to change of code status if his condition worsened but she states she feels he has "rallied" since when he was initially admitted and that he appears to still want to fight. 08/01-obtain palliative care consulted- requests continued aggressive measures Discussed with Latosha Domitila and DICTAPHONE MECHANIC at bedside ([employer]), I telephoned Dr. Connelly, extensive discussion regarding timing of revision given the recent events of worsening pneumonia and A. fib RVR yesterday. Plan for revision within the next 48 hours will hold off for today, for medical optimization. Given the fact that he is at increased risks of infection plan is not to delay more than 1-2 more days. This patient remains critically ill with one or more organ systems which are or may become a threat to life. I have spent in excess of 49 minutes discontinuously in the care and management of this patient. This time is exclusive of procedures, and includes, but is not limited to, evaluation of the patient, review of the medical record, discussions with family, consultants, nursing staff, or respiratory therapy, and documentation in the medical record. Physician Griselda Bateman Problem Qualifiers (1) UTI (urinary tract infection): Qualified Codes: N39.0 - Urinary tract infection, site not specified; R31.9 - Hematuria, unspecified (2) Dementia: (3) HTN (hypertension): Qualified Codes: I10 - Essential (primary) hypertension Griselda Bateman MD Aug 02, 2017 09:44
[2017-08-02] MEDS: POTASSIUM CHLOR 20 MEQ PREMIX 100 ML IV PRN ×2 (09:47→12:00)
--- NOTE | 2017-08-02 11:47 | PD.WCN.NOT ---
Wound Consult Description: Received consult from Doctor Griselda Bateman for wound management of sacral wound Communicated with: IVIS Thorne and Doctor Griselda Bateman Recommendation: 1.Please cleanse wound to sacrum with normal saline and pat dry. Apply Dakin's 0.125% moistened gauze packed in to wound bed and apply Calazime barrier cream to periwound, before covering wound with ABD pad, secured with paper tape. Apply skin prep before securing dressing with tape. Change dressing BID or PRN if saturated or dislodged. 2.Cleanse wounds to R and L hip with normal saline and apply Optifoam gentle 4x4 dressings over wounds, available through misogram only. Change dressings every 3 days or PRN if saturated or dislodged. 3. Please send wound culture. 4.Please turn and reposition patient every 2 hours and PRN for comfort and for offloading or pressure from mary kate prominences Additional Information: Patient seen on 5th floor [facility] for evaluation of wound management of sacrum. Patient turned with maximum assistance of IVIS Thorne 5th [place] [facility] and commercial insurance underwriter.Removed adhesive foam dressing and calcium alginate dressing in place to reveal wound. Wound has a foul odor and has blanchable erythema noted to periwound. Wound drainage minimal and cleary. Cleansed sacral wound with normal saline, and obtained wound culture.Wound measures 5cm x 4.3 cm x 1cm. Undermining is noted circumferentially deepest at 11 o'clock 1.8cm. Wound bed presents with ~20% facia, ~50% pale pink muscle tissue, ~10% bone and ~20% purple tissue.Presence of muscle, facia, and bone in wound bed indicates stage IV pressure injury. Wound margins are well defined, and unattached. Packed wound with Maxorb II(Calcium alginate) and covered with bordered gauze. Skin prep was applied to periwound and before securing dressing to skin. Removed absorbent transparent dressing to L hip to reveal partial thickness wound with poorly defined jagged wound margins. Wound is 90% pink and 10% purple. Cleansed wound with normal saline. Partial thickness wound over mary kate prominence indicates stage 2 pressure injury.Wound measures ~4cm x ~3cm x ~< 0.1cm. Cleansed wound with normal saline and applied adhesive foam dressing over wound bed. Skin prep was applied before securing dressing to skin. Turned patient to L side with assistance from [employer] 5th floor [facility] and commercial insurance underwriter to reveal transparent dressing to R hip that is dislodged. Removed dressing reveal wound to L hip. Wound presents with ~80% pink tissue and ~20% slough. Periwound is noted with scar tissue. Wound has an oval shape and well defined wound margins. Presence of slough in wound bed indicates unstageable pressure injury to R hip.Wound measures ~1cm x ~1cm x slough.Cleansed wound with normal saline and pat dry.skin prep was applied to periwound before covering wound with optifoam basic dressing on hand and secured with paper tape. Wound care to follow patient until discharged if wound deteriorates please Vocera wound care nurse. Gianna Garces [facility] Aug 02, 2017 11:47
[2017-08-02] MEDS: DILTIAZEM HCL 30 MG TAB PO SCH ×2 (12:00→17:54)
[2017-08-02 12:02] LABS: BLOOD GAS BASE EXCESS -7.4 mmol/L (-2-2); BLOOD GAS CARBOXYHEMOGLOBIN 0.6 % (0-4); BLOOD GAS HCO3 19 mmol/L (22-26); BLOOD GAS METHEMOGLOBIN 1.1 % (0-2); BLOOD GAS O2 HGB SATURATION 95 % (90-100); BLOOD GAS OXYGEN CONTENT 13.8 Vol % (12.0-20.0); BLOOD GAS PCO2 48 mmHg (38-42); BLOOD GAS PO2 98 mmHg (61-120); BLOOD GAS TOTAL HGB 10.3 G/DL (12.0-16.0); TEMP CORR TO 98.6
[2017-08-02 12:03] LABS: CRITICAL VALUE YES; DRAW SITE LT RADIAL; LITER FLOW 15 L/M; NUMBER OF ARTERIAL PUNCTURES 1; OXYGEN DEVICE NONREBREATHER; STAT YES
[2017-08-02] MEDS ORDERED: SUCCINYLCHOLINE CHLORIDE 200 MG/10 ML VIAL IV PUSH ONE (12:15)
[2017-08-02] MEDS ORDERED: PROPOFOL 500 MG/50 ML BTL IV ONE (12:15)
[2017-08-02] MEDS ORDERED: ROCURONIUM INJ 50 MG/5 ML VIAL IV ONE (12:15)
--- NOTE | 2017-08-02 12:32 | PD.PROCEDR ---
Procedure Note Procedure Endotracheal Intubation Diagnosis: Acute Hypoxemic respiratory failure Indications: Same Consent: Discussed with /emergent Anesthesia: See MAR Description of the Procedure: The patient was positioned in the sniffing position. Pre-oxygenation was performed using a BVM 100% FIO2. Anesthesia was induced via rapid sequence. A glide scope 4 was used for laryngoscopy and a Grade 1 view was obtained. A 8.0 cuffed endotracheal tube was inserted atraumatically through the vocal cords. Confirmation of correct endotracheal tube placement was made by equal and bilateral breath sounds and colorimetric CO2 detection. The endotracheal tube was secured at 22 cm at the teeth. There were no immediate complications noted. The patient remained hemodynamically stable throughout the procedure. A chest x-ray has been ordered. I personally performed the procedure. Griselda Bateman MD Aug 02, 2017 12:32
--- NOTE | 2017-08-02 12:36 | HHI.HCPN ---
Reason for visit a. To assist with evaluation and management of symptoms including: shortness of breath, dysphagia, debility b. To assist medical decision maker(s) with: better understanding of current medical conditions; weighing benefits/burdens of medical treatment options; making medical treatment decisions. Subjective/Interval History Mr. Holguin is a 86 years old male with a past medical history of dementia, Parkinson's, PVD with left AKA, tobacco abuse, BPH, GERD, bed ridden with sacral decubitus ulcers, PEG and history of tracheostomy that was decannulated. Patient is on a pureed diet and gets supplemental bolus feeding via PEG. Apparently, patient vomited after receiving a bolus feed at the skilled nursing and thereafter developed signs of respiratory distress. O2 saturation was in the low 70`s on room air. Patient was sent from the skilled nursing to the emergency room due to tachypnea, elevated temperature and tachycardia. In ER, Tmax of 101.7 degrees F per rectum, heart rate 129. Patient was also hypotensive. Orthopedic surgeon Dr. Ellis consulted for evaluation and management of Left AKA wound dehiscence, who recommends bedside irrigation debridement under local anesthesia with wound closure. Patient seen in his room in bed. Patient lethargic today, with minimal verbal response. Patient has increased work of breathing today, he is now on a Non- rebreather. Patient also went into atrial fibrillation HR 140s to 160s and had cardizem infusion which controlled rate. Cardizem infusion was stopped and patient was started on cardizem p.o. HR currently in the 80s. Laboratory workup today revealing WBC 14.7, hemoglobin 9.0, hematocrit 28.3, platelet count 348, sodium 144, potassium 3.1, BUN/creatinine 31/0.82. Chest x-ray today showing worsening bilateral airspace opacities. Infectious disease consulted today for evaluation and management of persistent leukocytosis bandemia and worsening pneumonia. Case discussed with Dr. Bateman who has already updated patient`s on current patient`s medical status and highly possibility of intubating patient. Also discussed case with bedside RN Fadumo. 1420hrs Met with patient`s by patient`s room. Dr. Bateman updated her on patient`s status. Patient was intubated around 1232hrs. Vent settings AC 14/550/ 7/50%. Patient`s appreciative of Dr. Bateman`s updates via telephone and in person. Patient`s state that she knows that "he is going to pull through this like he has done before". Offered supportive listening. Patient will be started on TF Glucerna 1.5 with a goal rate of 55ml/hr per GI orders. . Family/friend interactions 1420hrs Met with patient`s by patient`s room. Dr. Bateman updated her on patient`s status. Patient was intubated around 1232hrs. . Advance Directives Living Will: Copy in medical record Health Care Surrogate: Copy in medical record Advance Directive Specifics Date completed: 08/05/2012 . Health Care Surrogate(s): Spouse- HCS- Ally Stephanie Ramesh . Documented care wishes: Standard verbiage. Form scanned into EMR . Objective Vital Signs Date Time Temp Pulse Resp B/P (MAP) Pulse Ox O2 Delivery O2 Flow Rate FiO2 08/02/17 09:13 100 Non-Rebreather 15.00 08/02/17 08:00 97.8 86 26 149/69 (95) 100 08/02/17 08:00 86 08/02/17 07:00 100 Non-Rebreather 15.00 08/02/17 06:00 95 08/02/17 05:53 95 155/65 08/02/17 05:37 93 151/65 08/02/17 04:00 95 08/02/17 04:00 98.8 102 20 156/67 (96) 97 08/02/17 02:00 114 08/02/17 00:00 98.4 117 24 122/56 (78) 94 08/02/17 00:00 118 08/01/17 22:30 148 161/61 08/01/17 22:00 124 08/01/17 21:02 143 161/61 08/01/17 20:00 143 08/01/17 20:00 99.2 143 28 123/54 (77) 96 08/01/17 20:00 Venturi Mask 6.00 40 08/01/17 19:37 97 Venturi Mask 6.00 40 08/01/17 18:00 143 08/01/17 16:00 97.5 97 26 114/56 (75) 97 08/01/17 16:00 97 08/01/17 14:00 95 08/01/17 12:00 97.2 93 20 117/57 (77) 99 08/01/17 12:00 91 Intake & Output 08/02/17 08/02/17 07:00 19:00 Intake Total 1587 ml Output Total 500 ml Balance 1087 ml Intake IV Total 1587 ml Output Urine Total 500 ml # Bowel Movements 1 Physical Exam CONSTITUTIONAL/GENERAL: This is an elderly, ill looking patient, lethargic and in respiratory distress. TUBES/LINES/DRAINS: TLC, PIV, FC, Ventimask SKIN: No jaundice, rashes, or lesions. Ecchymoses on upper extremities. Stage II left trochanter ulcer and Stage III coccyx ulcer per EMR. Noted x2 intact dsgs to right foot and left stump. Skin temperature appropriate. Not diaphoretic. HEAD: Atraumatic. Normocephalic. EYES: Pupils equal and round and reactive. Extraocular motions intact. No scleral icterus. No injection or drainage. Fundi not examined. ENT: Hearing grossly normal. Nose without bleeding or purulent drainage. Moist oral mucosa NECK: Trachea midline. Supple, nontender. CARDIOVASCULAR: HR low 80s-irregular. No murmurs, gallops, or rubs. No JVD. Peripheral pulses symmetric-L AKA. RESPIRATORY/CHEST: Lungs rhonchi to auscultation , increased work of breathing. On 100% Non rebreather . Diminished breath sounds equal bilaterally. GASTROINTESTINAL: Abdomen soft, non-tender, nondistended. No palpable masses. Unsure is patient is trying to guard abdomen during palpation. Bowel sounds present. GENITOURINARY: Without palpable bladder distension. Masters catheter in place. MUSCULOSKELETAL: Extremities without clubbing, cyanosis, or edema. No mottling or clubbing. L AKA. Contracture to RLE. NEUROLOGICAL: Awake, lethargic, oriented to self only and confused. Follows simple commands intermittently, except did not follow with RLE. PSYCHIATRIC: No apparent hallucinations or other psychotic thought process. . Diagnostic Tests Laboratory Laboratory Tests Test 07/31/17 18:12 07/31/17 18:17 07/31/17 18:44 07/31/17 19:35 Lactic Acid Level 8.1 mmol/L (0.4-2.0) White Blood Count 9.3 TH/MM3 (4.0-11.0) Red Blood Count 4.29 MIL/MM3 (4.50-5.90) Hemoglobin 12.7 GM/DL (13.0-17.0) Hematocrit 39.9 % (39.0-51.0) Mean Corpuscular Volume 93.1 FL (80.0-100.0) Mean Corpuscular Hemoglobin 29.7 PG (27.0-34.0) Mean Corpuscular Hemoglobin Concent 31.9 % (32.0-36.0) Red Cell Distribution Width 17.4 % (11.6-17.2) Platelet Count 536 TH/MM3 (150-450) Mean Platelet Volume 7.9 FL (7.0-11.0) Neutrophils (%) (Auto) 90.1 % (16.0-70.0) Lymphocytes (%) (Auto) 5.4 % (9.0-44.0) Monocytes (%) (Auto) 3.9 % (0.0-8.0) Eosinophils (%) (Auto) 0.2 % (0.0-4.0) Basophils (%) (Auto) 0.4 % (0.0-2.0) Neutrophils # (Auto) 8.4 TH/MM3 (1.8-7.7) Lymphocytes # (Auto) 0.5 TH/MM3 (1.0-4.8) Monocytes # (Auto) 0.4 TH/MM3 (0-0.9) Eosinophils # (Auto) 0.0 TH/MM3 (0-0.4) Basophils # (Auto) 0.0 TH/MM3 (0-0.2) CBC Comment AUTO DIFF Differential Comment AUTO DIFF CONFIRMED Platelet Estimate HIGH (NORMAL) Platelet Morphology Comment ENLARGED (NORMAL) Blood Urea Nitrogen 33 MG/DL (7-18) Creatinine 1.35 MG/DL (0.60-1.30) Random Glucose 99 MG/DL (74-106) Total Protein 7.7 GM/DL (6.4-8.2) Albumin 2.2 GM/DL (3.4-5.0) Calcium Level 8.5 MG/DL (8.5-10.1) Alkaline Phosphatase 108 U/L (45-117) Aspartate Amino Transf (AST/SGOT) 104 U/L (15-37) Alanine Aminotransferase (ALT/SGPT) 44 U/L (12-78) Total Bilirubin 0.5 MG/DL (0.2-1.0) Sodium Level 138 MEQ/L (136-145) Potassium Level 4.3 MEQ/L (3.5-5.1) Chloride Level 105 MEQ/L (98-107) Carbon Dioxide Level 16.5 MEQ/L (21.0-32.0) Anion Gap 17 MEQ/L (5-15) Estimat Glomerular Filtration Rate 50 ML/MIN (>89) Troponin I 0.35 NG/ML (0.02-0.05) Lipase 88 U/L (73-393) Urine Color YELLOW (YELLW/STRAW) Urine Turbidity CLOUDY (CLEAR) Urine pH 5.5 (5.0-8.5) Urine Specific [place] 1.020 (1.002-1.035) Urine Protein 100 mg/dL (NEG-TRACE) Urine Glucose (UA) NEG mg/dL (NEG) Urine Ketones NEG mg/dL (NEG) Urine Occult Blood LARGE (NEG) Urine Nitrite NEG (NEG) Urine Bilirubin NEG (NEG) Urine Urobilinogen LESS THAN 2.0 MG/DL (LESS Urine Leukocyte Esterase LARGE (NEG) Urine RBC /hpf (0-3) Urine WBC /hpf (0-5) Urine Squamous Epithelial Cells 2 /hpf (0-5) Urine Amorphous Sediment OCC Urine Bacteria FEW /hpf (NONE) Urine Hyaline Casts 15 /lpf (RARE) Urine Mucus MANY /lpf (OCC) Urine Yeast with Hyphae MANY (NONE) Urine Yeast (Budding) FEW (NONE) Microscopic Urinalysis Comment CATH-CULTURE IND Prothrombin Time 13.4 SEC (9.8-11.6) Prothromb Time International Ratio 1.2 RATIO Activated Partial Thromboplast Time 28.9 SEC (24.3-30.1) Test 07/31/17 20:55 07/31/17 23:40 08/01/17 00:25 08/01/17 00:28 Lactic Acid Level 7.6 mmol/L (0.4-2.0) 5.5 mmol/L (0.4-2.0) Nasal Screen MRSA (PCR) MRSA DETECTED (NOT DETECT) Blood Gas Puncture Site RT BRACHIAL Blood Gas Patient Temperature 98.6 Blood Gas HCO3 15 mmol/L (22-26) Blood Gas Base Excess -10.3 mmol/L (-2-2) Blood Gas Oxygen Saturation 88 % (90-100) Arterial Blood pH 7.31 (7.380-7.420) Arterial Blood Partial Pressure CO2 30 mmHg (38-42) Arterial Blood Partial Pressure O2 63 mmHg (61-120) Arterial Blood Oxygen Content 12.1 Vol % (12.0-20.0) Arterial Blood Carboxyhemoglobin 0.7 % (0-4) Arterial Blood Methemoglobin 1.0 % (0-2) Blood Gas Hemoglobin 9.7 G/DL (12.0-16.0) Oxygen Delivery Device Venti Mask Blood Gas Liter Flow 7 L/M Blood Gas Inspired Oxygen 50 % Test 08/01/17 01:45 08/01/17 03:50 08/01/17 08:26 08/01/17 09:05 Troponin I 0.54 NG/ML (0.02-0.05) 0.48 NG/ML (0.02-0.05) White Blood Count 9.2 TH/MM3 (4.0-11.0) Red Blood Count 3.19 MIL/MM3 (4.50-5.90) Hemoglobin 9.3 GM/DL (13.0-17.0) Hematocrit 29.4 % (39.0-51.0) Mean Corpuscular Volume 92.3 FL (80.0-100.0) Mean Corpuscular Hemoglobin 29.2 PG (27.0-34.0) Mean Corpuscular Hemoglobin Concent 31.6 % (32.0-36.0) Red Cell Distribution Width 17.4 % (11.6-17.2) Platelet Count 359 TH/MM3 (150-450) Mean Platelet Volume 8.2 FL (7.0-11.0) Neutrophils (%) (Auto) 88.1 % (16.0-70.0) Lymphocytes (%) (Auto) 8.1 % (9.0-44.0) Monocytes (%) (Auto) 3.5 % (0.0-8.0) Eosinophils (%) (Auto) 0.1 % (0.0-4.0) Basophils (%) (Auto) 0.2 % (0.0-2.0) Neutrophils # (Auto) 8.1 TH/MM3 (1.8-7.7) Lymphocytes # (Auto) 0.7 TH/MM3 (1.0-4.8) Monocytes # (Auto) 0.3 TH/MM3 (0-0.9) Eosinophils # (Auto) 0.0 TH/MM3 (0-0.4) Basophils # (Auto) 0.0 TH/MM3 (0-0.2) CBC Comment DIFF FINAL Differential Comment Blood Urea Nitrogen 33 MG/DL (7-18) 34 MG/DL (7-18) Creatinine 1.19 MG/DL (0.60-1.30) 1.15 MG/DL (0.60-1.30) Random Glucose 102 MG/DL (74-106) 90 MG/DL (74-106) Total Protein 5.8 GM/DL (6.4-8.2) 6.1 GM/DL (6.4-8.2) Albumin 1.8 GM/DL (3.4-5.0) 1.9 GM/DL (3.4-5.0) Calcium Level 7.3 MG/DL (8.5-10.1) 7.5 MG/DL (8.5-10.1) Phosphorus Level 2.6 MG/DL (2.5-4.9) Magnesium Level 1.9 MG/DL (1.5-2.5) Alkaline Phosphatase 74 U/L (45-117) 80 U/L (45-117) Aspartate Amino Transf (AST/SGOT) 568 U/L (15-37) 577 U/L (15-37) Alanine Aminotransferase (ALT/SGPT) 276 U/L (12-78) 313 U/L (12-78) Total Bilirubin 0.2 MG/DL (0.2-1.0) 0.3 MG/DL (0.2-1.0) Sodium Level 140 MEQ/L (136-145) 141 MEQ/L (136-145) Potassium Level 3.6 MEQ/L (3.5-5.1) 3.7 MEQ/L (3.5-5.1) Chloride Level 110 MEQ/L (98-107) 112 MEQ/L (98-107) Carbon Dioxide Level 18.7 MEQ/L (21.0-32.0) 16.6 MEQ/L (21.0-32.0) Anion Gap 11 MEQ/L (5-15) 12 MEQ/L (5-15) Estimat Glomerular Filtration Rate 58 ML/MIN (>89) 60 ML/MIN (>89) Lactic Acid Level 3.7 mmol/L (0.4-2.0) 3.5 mmol/L (0.4-2.0) Protein Corrected Calcium 8.0 MG/DL (8.5-10.1) Stool C. difficile Toxin (PCR) NEGATIVE (NEGATIVE) Stl C. difficile Toxin Epiderm 027 PRESUMPTIVE NEGATIVE Test 08/01/17 12:22 08/02/17 05:13 08/02/17 05:20 08/02/17 07:30 Blood Gas Puncture Site RT BRACHIAL RT RADIAL Blood Gas Patient Temperature 98.6 98.6 Blood Gas HCO3 18 mmol/L (22-26) 19 mmol/L (22-26) Blood Gas Base Excess -6.6 mmol/L (-2-2) -5.9 mmol/L (-2-2) Blood Gas Oxygen Saturation 90 % (90-100) 82 % (90-100) Arterial Blood pH 7.37 (7.380-7.420) 7.33 (7.380-7.420) Arterial Blood Partial Pressure CO2 32 mmHg (38-42) 38 mmHg (38-42) Arterial Blood Partial Pressure O2 65 mmHg (61-120) 53 mmHg (61-120) Arterial Blood Oxygen Content 11.7 Vol % (12.0-20.0) 11.1 Vol % (12.0-20.0) Arterial Blood Carboxyhemoglobin 1.1 % (0-4) 0.9 % (0-4) Arterial Blood Methemoglobin 0.8 % (0-2) 1.0 % (0-2) Blood Gas Hemoglobin 9.1 G/DL (12.0-16.0) 9.6 G/DL (12.0-16.0) Oxygen Delivery Device Venti Mask Venti Mask Blood Gas Liter Flow 6 L/M 6 L/M Blood Gas Inspired Oxygen 40 % 40 % White Blood Count 14.7 TH/MM3 (4.0-11.0) Red Blood Count 3.10 MIL/MM3 (4.50-5.90) Hemoglobin 9.0 GM/DL (13.0-17.0) Hematocrit 28.3 % (39.0-51.0) Mean Corpuscular Volume 91.1 FL (80.0-100.0) Mean Corpuscular Hemoglobin 29.0 PG (27.0-34.0) Mean Corpuscular Hemoglobin Concent 31.9 % (32.0-36.0) Red Cell Distribution Width 17.9 % (11.6-17.2) Platelet Count 348 TH/MM3 (150-450) Mean Platelet Volume 7.8 FL (7.0-11.0) Neutrophils (%) (Auto) 93.8 % (16.0-70.0) Lymphocytes (%) (Auto) 3.3 % (9.0-44.0) Monocytes (%) (Auto) 2.6 % (0.0-8.0) Eosinophils (%) (Auto) 0.1 % (0.0-4.0) Basophils (%) (Auto) 0.2 % (0.0-2.0) Neutrophils # (Auto) 13.8 TH/MM3 (1.8-7.7) Lymphocytes # (Auto) 0.5 TH/MM3 (1.0-4.8) Monocytes # (Auto) 0.4 TH/MM3 (0-0.9) Eosinophils # (Auto) 0.0 TH/MM3 (0-0.4) Basophils # (Auto) 0.0 TH/MM3 (0-0.2) CBC Comment AUTO DIFF Differential Total Cells Counted 100 Neutrophils % (Manual) 28 % (16-70) Band Neutrophils % 47 % (0-6) Lymphocytes % 4 % (9-44) Monocytes % 2 % (0-8) Neutrophils # (Manual) 13.8 TH/MM3 (1.8-7.7) Metamyelocytes 19 % (0-1) Differential Comment FINAL DIFF MANUAL Dohle Bodies PRESENT (NONE SEEN) Platelet Estimate NORMAL (NORMAL) Platelet Morphology Comment NORMAL (NORMAL) Lactic Acid Level 2.6 mmol/L (0.4-2.0) Blood Urea Nitrogen 31 MG/DL (7-18) Creatinine 0.82 MG/DL (0.60-1.30) Random Glucose 79 MG/DL (74-106) Calcium Level 7.6 MG/DL (8.5-10.1) Sodium Level 144 MEQ/L (136-145) Potassium Level 3.1 MEQ/L (3.5-5.1) Chloride Level 112 MEQ/L (98-107) Carbon Dioxide Level 20.0 MEQ/L (21.0-32.0) Anion Gap 12 MEQ/L (5-15) Estimat Glomerular Filtration Rate 89 ML/MIN (>89) Phosphorus Level 2.3 MG/DL (2.5-4.9) Result Diagram: 08/02/1720 08/02/17 0730 Microbiology Microbiology Date/Time Source Procedure Growth Status 07/31/17 18:17 Blood Peripheral Aerobic Blood Culture - Preliminary NO GROWTH IN 2 DAYS Resulted 07/31/17 18:17 Blood Peripheral Anaerobic Blood Culture - Preliminary NO GROWTH IN 2 DAYS Resulted 07/31/17 18:07 Blood Peripheral Aerobic Blood Culture - Preliminary NO GROWTH IN 2 DAYS Resulted 07/31/17 18:07 Anaerobic Blood Culture - Preliminary Klebsiella Pneumoniae Resulted 07/31/17 19:35 Nasal Washing Influenza Types A,B Antigen (JAKOB) - Final NEGATIVE FOR FLU A AND B ANTIGEN.... Complete 07/31/17 18:44 Urine Catheterized Urine Urine Culture - Final 50-100,000 CFU/ML MIXED GRAM POSITIVE... Complete Procedures 08/01/2017- Central line placement -R Subclavian . Assessment and Plan Disease Oriented Problem List: (1) HCAP (healthcare-associated pneumonia) (2) Pxuxm-jz-cefuwpa kidney injury (3) UTI (urinary tract infection) (4) CKD (chronic kidney disease), stage III (5) Decubital ulcer (6) Alzheimer's dementia (7) HTN (hypertension) (8) CAD (coronary artery disease) Symptom Scale: (1) Shortness of breath Comment: Multifactorial. Presented with tachypnea, O2 saturation in the 70s. Chest x-ray showing RML, RLL pneumonia. . (2) Debility Comment: Patient is currently bedridden. . (3) Dysphagia Comment: Patient currently has a PEG tube, placed in October 2016. Patient was on pured diet and receives supplemental bolus feeds via PEG depending on his mental percentage. Pertinent Non-Medical Issues Psychosocial:Patient was born and raised in [place], [place]. Patient has been twice and is currently to his second of 52 years. Patient has 3 adult children, 2 from his first marriage and 1 son from his current marriage. 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 Spiritual:- stated that they are spiritual and not congregational. Legal: Patient has a signed HCS- copy scanned and a Living Will (As stated by -Will bring in Copy) Ethical issues impacting care: None at this time . Important Contacts Spouse- Latosha Ramesh Son- Saulo Garcia [phone] . Prognosis Mr. Holguin is a 86 years old male with a past medical history of dementia, subdural hematoma, Parkinson's, PVD with left AKA, tobacco abuse, BPH, GERD, bed ridden with sacral decubitus ulcers, PEG and history of tracheostomy that was decannulated. Patient was sent from the skilled nursing to the emergency room due to tachypnea, elevated temperature and tachycardia, vomiting. In ER, Tmax of 101.7 degrees F per rectum, heart rate 129. Patient was also hypotensive. Patient was found to have acute kidney injury, RML and RLL pneumonia, and urinary tract infection.Given ongoing multiple comorbidities and current problems, patient remains at high risk for further complications, deterioration and decline. . Code Status: Full Code Plan PLAN: Legal decision maker: Patient has a history of dementia and demonstrates inability to make his own medical decisions. Patient has a designated HCS who is his Ally Ramesh. Goals: 08/02/17 Aggressive. Patient is now on a non-rebreather with increased work of breathing. Will likely be intubated, place on a mechanical ventilator and patient`s still wants aggressive treatment after she was updated of current patient`s status by Dr. Bateman. Bedside revision of the left AKA stump to be postponed to approximately 24-48hours. Met with patient`s [id number] by patient`s room. Dr. Bateamn updated her on patient`s status. Patient was intubated around 1232hrs today and placed on mechanical ventilation. CODE STATUS: Full Code SYMPTOMS: * Shortness of breath: Multifactorial. Presented with tachypnea, O2 saturation in the 70s on admission. Chest x-ray showing RML, RLL pneumonia. Patient was started on antibiotics. Patient's respiratory status declining, increased work of breathing. Chest x-ray today showing worsening bilateral airspace opacities. Patient is now on a nonrebreather with O2 saturation currently high 90s. Patient on Albuterol Sulfate 2.5 mg Q 2hrs prn. Patient on a bicarbonate continuos infusion- now 30ml/hr. * Dysphagia: Patient has PEG tube. Was receiving bolus feeds and pureed diet at [facility]. May benefit from boilermaker mechanic consult. Now has pneumonia. Currently NPO. Patient`s weight on Nov 01 2016=75.9kg , August 01, 2017=65kg. 08/01/17 Total protein 6.1 , albumin 1.9. * Debility: Progressive. Patient is currently bedridden, with dementia, Parkinson's, PVD with left AKA and sacral decubitus ulcers. Patient may not be able to effectively participate in physical therapy given ongoing comorbidities. Patient is at high risk for further deterioration. Patient`s weight on Nov 01 2016=75.9kg , August 01, 2017=65kg. Palliative care will continue to follow the patient during hospital course as condition evolves, to assist patient/decision-maker with understanding of their medical conditions, weighing benefits/burdens of treatment options, for clarification of goals of treatment. Additionally will assist with any symptoms of palliative concern. . Attestation To help prompt me to consider important information that might be impacting today's encounter and assessment, information from prior notes written by myself or my colleagues may have been "brought forward" into today's note. My signature on this note, however, is an attestation that I personally performed the exam, history, and/or decision-making noted today, and, unless otherwise indicated, the interactions with patient, family, and staff as well as the review of records all occurred today. I also attest that the listed assessment and stated plan reflect my best clinical judgment today based on the combination of historical information, prior notes, and today's exam/ interactions. When time spent is documented, it refers only to time spent today by the signer, or if indicated, combined time spent today by collaborating physician/nurse practitioner. Juliano Lawrence Aug 02, 2017 12:36
[2017-08-02] MEDS: fentaNYL DRIP 250 ML IV PRN (13:06)
--- NOTE | 2017-08-02 13:09 | HHI.GIFU ---
Subjective Remarks Resting in bed. Extubated a short time ago for respiratory distress. No GI bleeding. Sedated on vent. (Ayaka Arzola) Objective Vitals I&O Vital Signs Date Time Temp Pulse Resp B/P (MAP) Pulse Ox O2 Delivery O2 Flow Rate FiO2 08/02/17 12:39 100 100 08/02/17 09:13 100 Non-Rebreather 15.00 08/02/17 08:00 97.8 86 26 149/69 (95) 100 08/02/17 08:00 86 08/02/17 07:00 100 Non-Rebreather 15.00 08/02/17 06:00 95 08/02/17 05:53 95 155/65 08/02/17 05:37 93 151/65 08/02/17 04:00 95 08/02/17 04:00 98.8 102 20 156/67 (96) 97 08/02/17 02:00 114 08/02/17 00:00 98.4 117 24 122/56 (78) 94 08/02/17 00:00 118 08/01/17 22:30 148 161/61 08/01/17 22:00 124 08/01/17 21:02 143 161/61 08/01/17 20:00 143 08/01/17 20:00 99.2 143 28 123/54 (77) 96 08/01/17 20:00 Venturi Mask 6.00 40 08/01/17 19:37 97 Venturi Mask 6.00 40 08/01/17 18:00 143 08/01/17 16:00 97.5 97 26 114/56 (75) 97 08/01/17 16:00 97 08/01/17 14:00 95 I/O 08/01/17 08/01/17 08/01/17 08/02/17 08/02/17 08/02/17 07:00 15:00 23:00 07:00 15:00 23:00 Intake Total 460 ml 1258 ml 1557 ml 1487 ml Output Total 300 ml 400 ml 500 ml Balance 160 ml 1258 ml 1157 ml 987 ml Intake IV Total 400 ml 1258 ml 1557 ml 1487 ml Other 60 ml Output Urine Total 300 ml 400 ml 500 ml # Bowel Movements 2 3 1 Laboratory Laboratory Tests Test 08/02/17 05:13 08/02/17 05:20 08/02/17 07:30 08/02/17 11:52 Blood Gas Puncture Site RT RADIAL LT RADIAL Blood Gas Patient Temperature 98.6 98.6 Blood Gas HCO3 19 19 Blood Gas Base Excess -5.9 -7.4 Blood Gas Oxygen Saturation 82 95 Arterial Blood pH 7.33 7.22 Arterial Blood Partial Pressure CO2 38 48 Arterial Blood Partial Pressure O2 53 98 Arterial Blood Oxygen Content 11.1 13.8 Arterial Blood Carboxyhemoglobin 0.9 0.6 Arterial Blood Methemoglobin 1.0 1.1 Blood Gas Hemoglobin 9.6 10.3 Oxygen Delivery Device Venti Mask NONREBREATHER Blood Gas Liter Flow 6 15 Blood Gas Inspired Oxygen 40 White Blood Count 14.7 Red Blood Count 3.10 Hemoglobin 9.0 Hematocrit 28.3 Mean Corpuscular Volume 91.1 Mean Corpuscular Hemoglobin 29.0 Mean Corpuscular Hemoglobin Concent 31.9 Red Cell Distribution Width 17.9 Platelet Count 348 Mean Platelet Volume 7.8 Neutrophils (%) (Auto) 93.8 Lymphocytes (%) (Auto) 3.3 Monocytes (%) (Auto) 2.6 Eosinophils (%) (Auto) 0.1 Basophils (%) (Auto) 0.2 Neutrophils # (Auto) 13.8 Lymphocytes # (Auto) 0.5 Monocytes # (Auto) 0.4 Eosinophils # (Auto) 0.0 Basophils # (Auto) 0.0 CBC Comment AUTO DIFF Differential Total Cells Counted 100 Neutrophils % (Manual) 28 Band Neutrophils % 47 Lymphocytes % 4 Monocytes % 2 Neutrophils # (Manual) 13.8 Metamyelocytes 19 Differential Comment FINAL DIFF MANUAL Dohle Bodies PRESENT Platelet Estimate NORMAL Platelet Morphology Comment NORMAL Lactic Acid Level 2.6 Blood Urea Nitrogen 31 Creatinine 0.82 Random Glucose 79 Calcium Level 7.6 Sodium Level 144 Potassium Level 3.1 Chloride Level 112 Carbon Dioxide Level 20.0 Anion Gap 12 Estimat Glomerular Filtration Rate 89 Phosphorus Level 2.3 Date/Time Source Procedure Growth Status 07/31/17 18:17 Blood Peripheral Aerobic Blood Culture - Preliminary NO GROWTH IN 2 DAYS Resulted 07/31/17 18:17 Blood Peripheral Anaerobic Blood Culture - Preliminary NO GROWTH IN 2 DAYS Resulted 07/31/17 19:35 Nasal Washing Influenza Types A,B Antigen (JAKOB) - Final NEGATIVE FOR FLU A AND B ANTIGEN.... Complete 07/31/17 18:44 Urine Catheterized Urine Urine Culture - Final 50-100,000 CFU/ML MIXED GRAM POSITIVE... Complete Imaging Last Impressions Chest X-Ray 08/02/17 0600 Signed Impressions: Service Date/Time: Wednesday, August 02, 2017 03:51 - CONCLUSION: Diffuse bilateral air space opacities are slightly worse. Arvind Márquez MD Abdomen/Pelvis CT 07/31/17 0000 Signed Impressions: Service Date/Time: Monday, July 31, 2017 22:53 - CONCLUSION: 1. CT suggests mild left-sided colitis in the proper clinical setting. No obstruction , perforation or abscess. 2. Thick waledl urinary bladder. Masters catheter present. 3. Right base infiltrate and small right, tiny left pleural effusions. 1. Arvind Márquez MD Physical Exam HEENT: Normocephalic; atraumatic; no jaundice. CHEST: OETT to vent. Diminished bases. CARDIAC: RRR ABDOMEN: Soft, nondistended, nontender; no hepatosplenomegaly; bowel sounds are present in all four quadrants. 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 (Ayaka Arzola) Assessment and Plan Plan ASSESSMENT: - Left sided colitis. Pt admitted for sepsis, HCAP, UTI. CT Scan of the abdomen and pelvis with IV contrast (07/31/17) CT suggests mild left-sided colitis in the proper clinical setting. No obstruction, perforation, or abscess, thick-walled urinary bladder, Masters catheter present, right base infiltrate and small right tiny left pleural effusions. Of note, he does have a history of C. Difficile back in October of 2016 and was treated with Flagyl and Vanco. CDiff negative. D/W radiology, unable to reconstruct CT scan. Cont. Abx. - Dysphagia. Gets pureed diet with supplemental feedings via peg at rehab center. Now with pna. Will get ST to evaluate for swallow evaluation and also have planting material unloader make recommendations for diet with supplemental nighttime feedings and just TF feedings. ST following, recommends NPO. May need egd +/- dilatation once more stable. - Elevated transaminases. CT as above. T. Bili 0.2, AST 568, ALT 276, ALk Phosph 74. Possible shocked liver. Recheck labs tomorrow. - CARMELITA. 9.3/29.4. - Sepsis, HCAP, UTI. Vanco, Diflucan, Azactam, Flagyl - Resp. Failure with pna. Intubated today. - Acute on chronic kidney dz. Creat 0.82 - Acute metabolic encephalopathy. lethargic, but answers questions/confused. ? baseline. - Dementia, Decubitus ulcer, HTN, BPH, CAD, PAD, Paroxysmal afib. per attending. PLAN: - Jevity 1.5 at 55cc/hr - Cont. Abx - LFT in am - Hepatitis profile - REINIER, ASMA, AMA - Supportive care - Further recommendations to follow based on results of above - Pt seen and examined by Dr. Soto and myself and this note is written on his behalf (Ayaka Arzola) Physician Comments Seen and examined with SIGIFREDO, intubated now. Stools -ve for C.diff. Colonoscopy on hold for now. (Pina Soto MD) Ayaka Arzola Aug 02, 2017 13:09 Pina Soto MD Aug 02, 2017 14:55
--- NOTE | 2017-08-02 13:32 | PD.ID.CON ---
History of Present Illness Service ID Consult Requested By Reason for Consult Evaluation and Mment of Sepsis, Kleb pneumo bacteremia in a pt with colitis. Primary Care Physician Unknown Diagnoses: History of Present Illness Most of the history is from review of medical records. Mr. Holguin is a 86 years old male with a past medical history of dementia, Parkinson's, PVD with left AKA, tobacco abuse, BPH, GERD, bed ridden with sacral decubitus ulcers, PEG and history of tracheostomy that was decannulated. Patient is on a pureed diet and gets supplemental bolus feeding via PEG. Apparently, patient vomited after receiving a bolus feed at the [place] [facility] and thereafter developed signs of respiratory distress. O2 saturation was in the low 70`s on room air. Patient was sent from the [place] [facility] to the emergency room due to tachypnea, elevated temperature and tachycardia. In ER, Tmax of 101.7 degrees F per rectum, heart rate 129. Patient was also hypotensive. Sepsis workup initiated. Laboratory workup revealed WBC 9.3, hemoglobin 12.7, hematocrit 39.9, platelet count 536, sodium 138, potassium 4.3 , BUN/creatinine 33/1.35, random glucose 99, lactic acid 8.1, AST 104, ALT for focal troponin 0.35, albumin 2.2, protein 7.7. Urine showed large leukocyte esterase, urine culture pending. Chest x-ray revealed possible right midlung infiltrate. CT abdomen/pelvis revealed mild left-sided colitis, no obstruction , perforation or abscess, right base infiltrate and small right tiny left pleural effusions. Patient was found to have acute kidney injury, RML and RLL pneumonia, and urinary tract infection. Patient was treated with vancomycin, aztreonam in the ER and 3L NS. Patient was admitted in ICU for further evaluation and treatment. ICU course complicated with increased respiratory distress and confusion. GI consulted for evaluation and treatment of left-sided colitis. Palliative care consulted to assist with clarifying goals of care. Per review of palliative care records it appears patient has had a decline since Oct this year with multiple hospitalizations. Patient has been residing at [facility] since 2014 and was able to transfer himself from bed to , feed himself and carry a simple conversation with his . Patient has been bedridden since he developed the sacral ulcer and totally dependent for all his ADLs. Patient has dementia and is oriented to self only. Blood cultures done on admission are positive for Kleb pneumo. ID consulted for Kleb pneumo bacteremia and Colitis. There is concern for Ischemic colitis given his vascular history. Cdiff is negative this admission and patient was not on any anti-cdiff treatment per records. Urine cultures are negative. There is concern for aspiration Pneumonia given the history from SNF> Review of Systems ROS Limitations: Intubated, Altered Mental Status Past Family Social History Allergies: Coded Allergies: Fish Containing Products (Unverified Allergy, Severe, 04/25/17) levofloxacin (Unverified Allergy, Severe, 04/25/17) lorazepam (Unverified Allergy, Severe, 04/25/17) morphine (Unverified Allergy, Severe, 04/25/17) penicillin G (Unverified Allergy, Severe, 04/25/17) sulfamethoxazole (Unverified Allergy, Severe, hives, 04/25/17) trimethoprim (Unverified Allergy, Severe, hives, 04/25/17) acetaminophen (Verified Allergy, Mild, ITCHING, 07/31/17) hydrocortisone (Unverified Allergy, Unknown, UNKNOWN, 04/25/17) Past Medical History Diabetes mellitus type 2 Hypertension Dementia Subdural hematoma Parkinson`s disease CAD with IN in 1997 with prior stents PAD with left AKA Paroxysmal Atrial fibrillation Kidney stones Stage II left trochanter ulcer-Wound care by Dr. Benjamin Stage III coccyx ulcer Recurrent UTI Records indicate he has a history of COPD though his denies BPH GERD Constipation history of C. Difficile in October of 2016 PEG Past Surgical History Appendectomy Bilateral Cataract surgery TURP Hx of Tracheostomy placement, October 2016 PEG placement, October 2016 Carotid Artery Endarterectomy Left knee arthroscopy Left AKA Dr. Ellis Multiple sacral debridements Right subdural [place] hole and subdural hematoma evacuation Reported Medications Reported Meds & Active Scripts Active Reported Zoloft (Sertraline HCl) 25 Mg Tab 25 Mg PO BID Lisinopril 10 Mg Tab 10 Mg PO DAILY Donepezil 10 Mg Tab 10 Mg PO HS Neurontin (Gabapentin) 100 Mg Cap 100 Mg PO HS Melatonin 5 Mg Tab 5 Mg PO HS Minocycline (Minocycline HCl) 100 Mg Cap 100 Mg PO BID Cefdinir 300 Mg Cap 300 Mg PO BID Florajen Bifidoblend Capsule (Bifidobacter. Bifidum/B.longum) 460 Mg Capsule 3 Cap PEG BID Vitamin C (Ascorbic Acid) 250 Mg Tab 250 Mg PEG Zofran (Ondansetron HCl) 4 Mg Tab 4 Mg PO Q8HR PRN Saline Nasal [place] (Sodium Chloride) 0.65% [place] 2 [place] EACH NARE DIRECTED PRN Ferrous Sulfate 325 Mg (65 Mg Iron) Tablet 325 Mg PO TIDPC [Glucerna 1.5 ] 70 Ml PEG Ibuprofen 400 Mg Tab 400 Mg PO Q8H PRN Benadryl Allergy (Diphenhydramine HCl) 25 Mg Cap Ferrous Sulfate 325 Mg (65 Mg Iron) Tablet 325 Mg PO TIDPC Digestive Enzyme (Digestive Enzymes) 1 Cap Cap 1 Cap PO TID Albuterol Neb (Albuterol Sulfate) 2.5 Mg/3 Ml Neb 2.5 Mg NEB Q4HR NEB While awake Alprazolam 0.25 Mg Tab 0.25 Mg PO DAILY PRN Active Ordered Medications Current Medications Medications (Trade) Dose Ordered Sig/Jaime Route Start Time Stop Time Status Last Admin Norepinephrine Bitartrate 250 ml @ 7.5 mls/hr TITRATE PRN IV 07/31/17 21:15 (Brethine Inj) 1 mg UNSCH PRN SQ 07/31/17 21:15 (NS Flush) 2 ml UNSCH PRN IV FLUSH 07/31/17 21:15 (NS Flush) 2 ml BID IV FLUSH 08/01/17 09:00 08/02/17 08:47 (Zofran Inj) 4 mg Q6H PRN IV PUSH 07/31/17 21:15 (Heparin Inj) 5,000 units Q12H SQ 07/31/17 22:00 08/02/17 08:49 Miscellaneous Information 1 Q361D XX 07/31/17 21:15 (Chlorhexidine 2% Cloth) 3 pack Taper DAILY@04 TOP 08/01/17 04:00 07/28/18 03:59 08/01/17 04:00 (Chlorhexidine 2% Cloth) 3 pack UNSCH PRN TOP 07/31/17 21:15 (Azucena-Colace) 1 tab BID PO 08/01/17 09:00 08/01/17 23:38 (Milk Of Magnesia Liq) 30 ml Q12H PRN PO 07/31/17 21:15 (Senokot) 17.2 mg Q12H PRN PO 07/31/17 21:15 (Dulcolax Supp) 10 mg DAILY PRN RECTAL 07/31/17 21:15 (Lactulose Liq) 30 ml DAILY PRN PO 07/31/17 21:15 Pharmacy Profile Note 0 ml @ 0 mls/hr UNSCH OTHER 07/31/17 21:15 Aztreonam 2000 mg/ Sodium Chloride 100 ml @ 200 mls/hr Q8H IV 08/01/17 04:00 08/02/17 11:59 Metronidazole 100 ml @ 100 mls/hr Q8H IV 08/01/17 00:00 08/02/17 15:01 Sodium Bicarbonate 75 meq/Sodium Chloride 1,075 ml @ 30 mls/hr Q24H IV 08/01/17 03:00 08/02/17 08:49 (Aricept) 10 mg HS PO 08/01/17 21:00 08/01/17 23:38 (Ferrous Sulfate) 325 mg TIDPC PO 08/01/17 09:30 08/02/17 17:54 (Vitamin C) 500 mg DAILY PO 08/01/17 09:00 08/02/17 08:48 (Duoneb Neb) 1 ampule Q6HR NEB NEB 08/01/17 04:00 08/02/17 15:21 (Albuterol Neb) 2.5 mg Q2HR NEB PRN NEB 08/01/17 03:00 (D50w (Vial) Inj) 50 ml UNSCH PRN IV PUSH 08/01/17 03:15 08/02/17 08:48 (Glucagon Inj) 1 mg UNSCH PRN OTHER 08/01/17 03:15 (NovoLOG SUPPLEMENTAL SCALE) 1 Q6H SQ 08/01/17 03:15 Fluconazole/ Sodium Chloride 50 ml @ 50 mls/hr Q24H IV 08/01/17 05:00 08/02/17 05:53 (Lactinex Pkt) 1 gm TID PEG 08/01/17 09:00 08/02/17 17:54 Vancomycin HCl 1250 mg/Sodium Chloride 262.5 ml @ 250 mls/hr Q24H IV 08/01/17 18:00 08/02/17 17:53 Miscellaneous Information SPECIFIC LAB TO BE JERRY... ONCE ONCE .XX 08/03/17 17:45 08/03/17 17:46 Potassium Chloride 100 ml @ 50 mls/hr Q2H PRN IV 08/02/17 09:15 Potassium Chloride 100 ml @ 50 mls/hr Q2H PRN IV 08/02/17 09:15 08/02/17 12:00 (K-Lyte Cl Eff) 50 meq UNSCH PRN PO 08/02/17 09:15 Potassium Chloride 100 ml @ 25 mls/hr UNSCH PRN IV 08/02/17 09:15 Potassium Chloride 100 ml @ 50 mls/hr Q2H PRN IV 08/02/17 09:15 Magnesium Sulfate 4 gm/Sodium Chloride 100 ml @ 50 mls/hr UNSCH PRN IV 08/02/17 09:15 (Mag-Ox) 800 mg UNSCH PRN PO 08/02/17 09:15 Magnesium Sulfate 2 gm/Sodium Chloride 100 ml @ 50 mls/hr UNSCH PRN IV 08/02/17 09:15 (K-Phos) 2,000 mg Q4H PRN PO 08/02/17 09:15 Sodium Phosphate 30 mmol/Sodium Chloride 250 ml @ 42 mls/hr UNSCH PRN IV 08/02/17 09:15 (K-Phos) 2,000 mg UNSCH PRN PO/TUBE 08/02/17 09:15 Potassium Phosphate 30 mmol/ Sodium Chloride 260 ml @ 42 mls/hr UNSCH PRN IV 08/02/17 09:15 (Cardizem) 30 mg Q6HR PO 08/02/17 12:00 08/02/17 17:54 Fentanyl Citrate 250 ml @ 5 mls/hr TITRATE PRN IV 08/02/17 12:15 08/02/17 13:06 (NS Irr Btl) 10 ml BID IRRIGATION 08/02/17 21:00 (Dakin'S 0.125% Soln) 20 ml BID TOPICAL 08/02/17 21:00 (Zinc Oxide 20% Oint) 1 applic BID TOPICAL 08/02/17 21:00 (Pepcid Inj) 20 mg Q12H IV PUSH 08/02/17 21:00 Family History Reviewed palliative care note. Non contributory to current ID problems. Social History twice. 2nd is POA. He has 3 living children. 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 Physical Exam Vital Signs Vital Signs Date Time Temp Pulse Resp B/P (MAP) Pulse Ox O2 Delivery O2 Flow Rate FiO2 08/02/17 12:39 100 100 08/02/17 09:13 100 Non-Rebreather 15.00 08/02/17 08:00 97.8 86 26 149/69 (95) 100 08/02/17 08:00 86 08/02/17 07:00 100 Non-Rebreather 15.00 08/02/17 06:00 95 08/02/17 05:53 95 155/65 08/02/17 05:37 93 151/65 08/02/17 04:00 95 08/02/17 04:00 98.8 102 20 156/67 (96) 97 08/02/17 02:00 114 08/02/17 00:00 98.4 117 24 122/56 (78) 94 08/02/17 00:00 118 08/01/17 22:30 148 161/61 08/01/17 22:00 124 08/01/17 21:02 143 161/61 08/01/17 20:00 143 08/01/17 20:00 99.2 143 28 123/54 (77) 96 08/01/17 20:00 Venturi Mask 6.00 40 08/01/17 19:37 97 Venturi Mask 6.00 40 08/01/17 18:00 143 08/01/17 16:00 97.5 97 26 114/56 (75) 97 08/01/17 16:00 97 08/01/17 14:00 95 Physical Exam GENERAL: This is a well-nourished, well-developed patient, in no apparent distress. SKIN: No rashes, ecchymoses or lesions. Cool and dry. HEAD: Atraumatic. Normocephalic. No temporal or scalp tenderness. EYES: Pupils equal round and reactive. Extraocular motions intact. No scleral icterus. No injection or drainage. ENT: Intubated. NECK: Trachea midline. Supple, nontender, no meningeal signs. CARDIOVASCULAR: Regular rate and rhythm without murmurs, gallops, or rubs. RESPIRATORY: Clear to auscultation. Breath sounds equal bilaterally. No wheezes , rales, or rhonchi. GASTROINTESTINAL: Abdomen soft, non-tender, nondistended. MUSCULOSKELETAL: Left LE ulcer on stump with clean margins no erythema. Bone spur protruding from skin. Multiple decubs as per wound care/RN notes. Reviewed with the RN. NEUROLOGICAL: Sedated Psych could not be assessed IV line sites with no e.o infection Laboratory Laboratory Tests Test 08/02/17 05:13 08/02/17 05:20 08/02/17 07:30 08/02/17 11:52 Blood Gas Puncture Site RT RADIAL LT RADIAL Blood Gas Patient Temperature 98.6 98.6 Blood Gas HCO3 19 19 Blood Gas Base Excess -5.9 -7.4 Blood Gas Oxygen Saturation 82 95 Arterial Blood pH 7.33 7.22 Arterial Blood Partial Pressure CO2 38 48 Arterial Blood Partial Pressure O2 53 98 Arterial Blood Oxygen Content 11.1 13.8 Arterial Blood Carboxyhemoglobin 0.9 0.6 Arterial Blood Methemoglobin 1.0 1.1 Blood Gas Hemoglobin 9.6 10.3 Oxygen Delivery Device Venti Mask NONREBREATHER Blood Gas Liter Flow 6 15 Blood Gas Inspired Oxygen 40 White Blood Count 14.7 Red Blood Count 3.10 Hemoglobin 9.0 Hematocrit 28.3 Mean Corpuscular Volume 91.1 Mean Corpuscular Hemoglobin 29.0 Mean Corpuscular Hemoglobin Concent 31.9 Red Cell Distribution Width 17.9 Platelet Count 348 Mean Platelet Volume 7.8 Neutrophils (%) (Auto) 93.8 Lymphocytes (%) (Auto) 3.3 Monocytes (%) (Auto) 2.6 Eosinophils (%) (Auto) 0.1 Basophils (%) (Auto) 0.2 Neutrophils # (Auto) 13.8 Lymphocytes # (Auto) 0.5 Monocytes # (Auto) 0.4 Eosinophils # (Auto) 0.0 Basophils # (Auto) 0.0 CBC Comment AUTO DIFF Differential Total Cells Counted 100 Neutrophils % (Manual) 28 Band Neutrophils % 47 Lymphocytes % 4 Monocytes % 2 Neutrophils # (Manual) 13.8 Metamyelocytes 19 Differential Comment FINAL DIFF MANUAL Dohle Bodies PRESENT Platelet Estimate NORMAL Platelet Morphology Comment NORMAL Lactic Acid Level 2.6 Blood Urea Nitrogen 31 Creatinine 0.82 Random Glucose 79 Calcium Level 7.6 Sodium Level 144 Potassium Level 3.1 Chloride Level 112 Carbon Dioxide Level 20.0 Anion Gap 12 Estimat Glomerular Filtration Rate 89 Phosphorus Level 2.3 Date/Time Source Procedure Growth Status 07/31/17 18:17 Blood Peripheral Aerobic Blood Culture - Preliminary NO GROWTH IN 2 DAYS Resulted 07/31/17 18:17 Blood Peripheral Anaerobic Blood Culture - Preliminary NO GROWTH IN 2 DAYS Resulted 07/31/17 19:35 Nasal Washing Influenza Types A,B Antigen (JAKOB) - Final NEGATIVE FOR FLU A AND B ANTIGEN.... Complete 07/31/17 18:44 Urine Catheterized Urine Urine Culture - Final 50-100,000 CFU/ML MIXED GRAM POSITIVE... Complete Result Diagram: 08/02/17 0520 08/02/17 0730 Imaging Last Impressions Chest X-Ray 08/02/17 0600 Signed Impressions: Service Date/Time: Wednesday, August 02, 2017 03:51 - CONCLUSION: Diffuse bilateral air space opacities are slightly worse. Arvind Márquez MD Abdomen/Pelvis CT 07/31/17 0000 Signed Impressions: Service Date/Time: Monday, July 31, 2017 22:53 - CONCLUSION: 1. CT suggests mild left-sided colitis in the proper clinical setting. No obstruction , perforation or abscess. 2. Thick waledl urinary bladder. Masters catheter present. 3. Right base infiltrate and small right, tiny left pleural effusions. 1. Arvind Márquez MD Assessment and Plan Assessment and Plan Sepsis Kleb pneumo Bacteremia: likely GI source. Urine Cx neg Left AKA stump with protruding bone but no infection PEG tube status. Acute resp failure Acute metabolic encephalopathy: baseline dementia and parkinsons. Sepsis contributing factor. 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 Cdiff negative. Recs Continue Azactam IV DC Vanco IV: Blood cultures with GNR no GP or MRSA so far. Continue Flagyl will switch to oral. DC Diflucan Follow cultures Follow clinically yovany Pineda. Yarely Bowman MD Aug 02, 2017 13:32
--- NOTE | 2017-08-02 13:34 | RADRPT ---
EXAM DATE/TIME: 08/02/2017 13:01 [facility] COMPARISON: CHEST SINGLE AP, August 02, 2017, 3:51. INDICATIONS : Post intubation. MEDICAL HISTORY : Hypertension. SURGICAL HISTORY : Appendectomy. Prostatectomy. Carotid endarterectomy. ENCOUNTER: Initial ACUITY: 1 day PAIN SCORE: Non-responsive. LOCATION: Bilateral chest FINDINGS: A single view of the chest demonstrates the endotracheal tube, right subclavian central line are in g ood position. There is mild diffuse pulmonary interstitial prominence stable from the previous study. No visible pneumothorax. The cardiomediastinal contours are unremarkable. Osseous structures are i ntact. CONCLUSION: Stable diffuse patchy interstitial prominence. ET tube in good position. Sam Lares MD on August 02, 2017 at 13:31 Board Certified Radiologist. This report was verified electronically.
[2017-08-02 14:04] LABS: BLOOD GAS BASE EXCESS -8.5 mmol/L (-2-2); BLOOD GAS CARBOXYHEMOGLOBIN 0.4 % (0-4); BLOOD GAS HCO3 18 mmol/L (22-26); BLOOD GAS METHEMOGLOBIN 0.9 % (0-2); BLOOD GAS O2 HGB SATURATION 98 % (90-100); BLOOD GAS OXYGEN CONTENT 15.8 Vol % (12.0-20.0); BLOOD GAS PCO2 45 mmHg (38-42); BLOOD GAS PO2 237 mmHg (61-120); BLOOD GAS TOTAL HGB 11.1 G/DL (12.0-16.0); TEMP CORR TO 98.6
[2017-08-02 14:05] LABS: CRITICAL VALUE YES; FIO2 100 %; OXYGEN DEVICE VENTILATOR; VENT SETTINGS AC/14/550/PEEP 7
[2017-08-02 14:06] LABS: DRAW SITE RT BRACHIAL; NUMBER OF ARTERIAL PUNCTURES 2; STAT NO
[2017-08-02 14:36] LABS: INDIRECT BILIRUBIN 0.1 MG/DL (0.0-0.8); TOTAL BILIRUBIN ADULT 0.3 MG/DL (0.2-1.0)
[2017-08-02] MEDS: VANCOMYCIN INJ 1,250 MG in SODIUM CHLOR 0.9% 250 ML INJ 250 ML IV SCH (17:53)
[2017-08-02] MEDS: DONEPEZIL HCL 5 MG TAB PO SCH (20:55)
[2017-08-02] MEDS: SODIUM CHLORIDE 0.9% IRRIGATION SCH (21:00)
[2017-08-02] MEDS: SODIUM HYPOCHLORITE 0.125% 500 ML BTL TOPICAL SCH (22:08)
[2017-08-02] MEDS: ZINC OXIDE 20% OINT 30 GM TUBE TOPICAL SCH (22:08)
[2017-08-03] VITALS (35 sets, daily range): BP systolic 95–136; BP diastolic 48–66; PULSE 70–122; RESP 13–20; TEMP 97.1–98.8; O2SAT 98–100
[2017-08-03] MEDS: INSULIN ASPART SUPPLEMENTAL SCALE SQ SCH ×4 (03:15→21:11)
[2017-08-03] MEDS: AZTREONAM INJ 2,000 MG in SODIUM CHLORIDE 0.9% INJ 100 ML IV SCH ×3 (03:56→21:17)
[2017-08-03] MEDS: CHLORHEXIDINE GLUCONATE 2 % 1 PACK (2 CLOTHS) TOP SCH (03:56)
[2017-08-03] MEDS: RESP: ALBUTEROL 2.5 MG/IPRATROPIUM 0.5 MG NEB (SCH) NEB ×4 (04:02→19:51)
--- NOTE | 2017-08-03 05:24 | RADRPT ---
EXAM DATE/TIME: 08/03/2017 04:07 [facility] COMPARISON: CHEST SINGLE AP, August 02, 2017, 13:01. INDICATIONS : Evaluate for pneumonia- Respiratory failure MEDICAL HISTORY : Hypertension. SURGICAL HISTORY : Appendectomy. Prostatectomy. Carotid endarterectomy. ENCOUNTER: Subsequent ACUITY: 2 days PAIN SCORE: Non-responsive. LOCATION: Bilateral chest FINDINGS: Patchy diffuse airspace opacities again seen of both lungs. No large effusion demonstrated. No pneumo thorax. Endotracheal tube tip is approximately 4.5 cm above the veda. There is a right subclavian central v enous catheter again seen with tip in the superior vena cava. CONCLUSION: No significant change. Patchy diffuse airspace disease of both lungs. Arvind Márquez MD on August 03, 2017 at 5:21 Board Certified Radiologist. This report was verified electronically.
[2017-08-03 05:29] LABS: AUTOMATED NEUTROPHIL # 13.4 TH/MM3 (1.8-7.7); BASOPHIL % 0.3 % (0.0-2.0); EOSINOPHIL # 0.2 TH/MM3 (0-0.4); EOSINOPHIL % 1.6 % (0.0-4.0); LYMPH % 4.6 % (9.0-44.0); LYMPHOCYTE # 0.7 TH/MM3 (1.0-4.8); MEAN CORPUSCULAR HEMOGLOBIN 29.3 PG (27.0-34.0); MEAN CORPUSCULAR HGB CONC 31.8 % (32.0-36.0); MONO % 2.2 % (0.0-8.0); NEUT % 91.3 % (16.0-70.0); PLATELET COUNT 338 TH/MM3 (150-450); RED BLOOD COUNT 2.93 MIL/MM3 (4.50-5.90); RED CELL DISTRIBUTION WIDTH 18.1 % (11.6-17.2); WHITE BLOOD COUNT 14.7 TH/MM3 (4.0-11.0)
[2017-08-03 05:32] LABS: HEMO FLAGS AUTO DIFF
[2017-08-03 05:49] LABS: ANION GAP 13 MEQ/L (5-15); AST (GOT) 522 U/L (15-37); BICARBONATE 17.7 MEQ/L (21.0-32.0); BLOOD UREA NITROGEN 41 MG/DL (7-18); CHLORIDE 112 MEQ/L (98-107); GLOMERULAR FILTRATION RATE 67 ML/MIN (>89); MAGNESIUM 1.7 MG/DL (1.5-2.5); POTASSIUM 4.2 MEQ/L (3.5-5.1); SODIUM (NA) 143 MEQ/L (136-145)
[2017-08-03 05:51] LABS: ALT (GPT) 470 U/L (12-78)
[2017-08-03 05:52] LABS: ALKALINE PHOSPHATASE 85 U/L (45-117); TOTAL BILIRUBIN ADULT 0.3 MG/DL (0.2-1.0)
[2017-08-03] MEDS: DILTIAZEM HCL 30 MG TAB PO SCH ×4 (06:00→16:44)
[2017-08-03 06:21] LABS: BANDS 10 % (0-6); METAMYELOCYTES 1 % (0-1); NEUTROPHIL # MANUAL DIFF 14.6 TH/MM3 (1.8-7.7); POLYS (SEG NEUTROPHILS) 88 % (16-70); WBC DIFF SAMPLE 100
[2017-08-03 06:22] LABS: PLATELET ESTIMATE SMEAR NORMAL (NORMAL); PLATELET MORPHOLOGY NORMAL (NORMAL); SCAN/DIFF FINAL DIFF MANUAL
[2017-08-03] MEDS: fentaNYL DRIP 250 ML IV PRN (06:25)
[2017-08-03] MEDS: SODIUM CHLORIDE 0.9% IRRIGATION SCH ×2 (09:00→21:00)
--- NOTE | 2017-08-03 09:26 | HHI.GIFU ---
Subjective Remarks Resting in bed. Sedated on vent. + moderate brown loose stool. Had high residual and therefore TF on hold. (Ayaka Arzola) Objective Vitals I&O Vital Signs Date Time Temp Pulse Resp B/P (MAP) Pulse Ox O2 Delivery O2 Flow Rate FiO2 08/03/17 07:21 100 35 08/03/17 06:00 79 08/03/17 04:02 100 35 08/03/17 04:00 97.8 70 14 100/49 (66) 100 08/03/17 04:00 40 08/03/17 04:00 70 08/03/17 02:00 71 08/03/17 00:00 97.8 73 15 100/48 (65) 100 08/03/17 00:00 40 08/03/17 00:00 73 08/02/17 23:36 100 35 08/02/17 22:14 100 40 08/02/17 22:00 79 08/02/17 20:00 40 08/02/17 20:00 75 08/02/17 20:00 97.5 75 13 128/56 (80) 100 08/02/17 19:48 100 40 08/02/17 19:00 100 Mechanical Ventilator 40 08/02/17 18:00 73 08/02/17 16:00 97.2 83 14 113/55 (74) 100 08/02/17 16:00 50 08/02/17 16:00 83 08/02/17 15:22 100 50 08/02/17 14:00 75 08/02/17 12:39 100 100 08/02/17 12:00 89 08/02/17 12:00 97.5 89 24 142/65 (90) 100 08/02/17 10:00 97 I/O 08/02/17 08/02/17 08/02/17 08/03/17 08/03/17 08/03/17 07:00 15:00 23:00 07:00 15:00 23:00 Intake Total 1487 ml 214 ml 1314.5 ml 1238 ml Output Total 500 ml 350 ml 150 ml Balance 987 ml 214 ml 964.5 ml 1088 ml Intake IV Total 1487 ml 214 ml 1314.5 ml 677 ml Tube Feeding 361 ml Other 200 ml Output Urine Total 500 ml 350 ml 150 ml # Bowel Movements 1 3 0 Laboratory Laboratory Tests Test 08/02/17 11:52 08/02/17 13:42 08/02/17 14:00 08/02/17 17:45 Blood Gas Puncture Site LT RADIAL RT BRACHIAL Blood Gas Patient Temperature 98.6 98.6 Blood Gas HCO3 19 18 Blood Gas Base Excess -7.4 -8.5 Blood Gas Oxygen Saturation 95 98 Arterial Blood pH 7.22 7.22 Arterial Blood Partial Pressure CO2 48 45 Arterial Blood Partial Pressure O2 98 237 Arterial Blood Oxygen Content 13.8 15.8 Arterial Blood Carboxyhemoglobin 0.6 0.4 Arterial Blood Methemoglobin 1.1 0.9 Blood Gas Hemoglobin 10.3 11.1 Oxygen Delivery Device NONREBREATHER VENTILATOR Blood Gas Liter Flow 15 Blood Gas Ventilator Setting AC/14/550/PEEP 7 Blood Gas Inspired Oxygen 100 Total Bilirubin 0.3 Direct Bilirubin 0.2 Indirect Bilirubin 0.1 Aspartate Amino Transf (AST/SGOT) 872 Alanine Aminotransferase (ALT/SGPT) 569 Alkaline Phosphatase 86 Total Protein 5.9 Albumin 1.7 Hepatitis A IgM Antibody NEGATIVE Hepatitis B Surface Antigen NEGATIVE Hepatitis B Core IgM Antibody NEGATIVE Hepatitis C Antibody NEGATIVE Potassium Level 4.5 Test 08/03/17 04:00 White Blood Count 14.7 Red Blood Count 2.93 Hemoglobin 8.6 Hematocrit 27.0 Mean Corpuscular Volume 92.0 Mean Corpuscular Hemoglobin 29.3 Mean Corpuscular Hemoglobin Concent 31.8 Red Cell Distribution Width 18.1 Platelet Count 338 Mean Platelet Volume 8.3 Neutrophils (%) (Auto) 91.3 Lymphocytes (%) (Auto) 4.6 Monocytes (%) (Auto) 2.2 Eosinophils (%) (Auto) 1.6 Basophils (%) (Auto) 0.3 Neutrophils # (Auto) 13.4 Lymphocytes # (Auto) 0.7 Monocytes # (Auto) 0.3 Eosinophils # (Auto) 0.2 Basophils # (Auto) 0.0 CBC Comment AUTO DIFF Differential Total Cells Counted 100 Neutrophils % (Manual) 88 Band Neutrophils % 10 Monocytes % 1 Neutrophils # (Manual) 14.6 Metamyelocytes 1 Differential Comment FINAL DIFF MANUAL Platelet Estimate NORMAL Platelet Morphology Comment NORMAL Blood Urea Nitrogen 41 Creatinine 1.04 Random Glucose 78 Total Protein 5.4 Albumin 1.5 Calcium Level 7.8 Phosphorus Level 1.5 Magnesium Level 1.7 Alkaline Phosphatase 85 Aspartate Amino Transf (AST/SGOT) 522 Alanine Aminotransferase (ALT/SGPT) 470 Total Bilirubin 0.3 Sodium Level 143 Potassium Level 4.2 Chloride Level 112 Carbon Dioxide Level 17.7 Anion Gap 13 Estimat Glomerular Filtration Rate 67 Date/Time Source Procedure Growth Status 08/02/17 14:00 Blood Peripheral Aerobic Blood Culture - Preliminary Gram Variable Dinesh Resulted 08/02/17 14:00 Blood Peripheral Anaerobic Blood Culture Pending Resulted 08/02/17 14:00 Sputum Expectorated Sputum Gram Stain - Final Resulted 08/02/17 14:00 Sputum Expectorated Sputum Sputum Culture Pending Resulted 08/02/17 09:50 Urine Catheterized Urine Legionella Antigen - Final PRESUMPTIVE NEGATIVE FOR LEGIONELLA P... Complete 08/02/17 09:50 Urine Catheterized Urine Streptococcus pneumoniae Antigen (M - Final PRESUMPTIVE NEGATIVE FOR STREPTOCOCCU... Complete 08/02/17 12:50 Wound Other Gram Stain - Final Resulted 08/02/17 12:50 Wound Other Wound Culture Pending Resulted Imaging Last Impressions Chest X-Ray 08/03/17 0600 Signed Impressions: Service Date/Time: July 04:07 - CONCLUSION: No significant change. Patchy diffuse airspace disease of both lungs. Arvind Márquez MD Abdomen/Pelvis CT 07/31/17 0000 Signed Impressions: Service Date/Time: Monday, July 31, 2017 22:53 - CONCLUSION: 1. CT suggests mild left-sided colitis in the proper clinical setting. No obstruction , perforation or abscess. 2. Thick waledl urinary bladder. Masters catheter present. 3. Right base infiltrate and small right, tiny left pleural effusions. 1. Arvind Márquez MD Physical Exam HEENT: Normocephalic; atraumatic; no jaundice. CHEST: OETT to vent. Diminished bases. CARDIAC: RRR ABDOMEN: Soft, nondistended, nontender; no hepatosplenomegaly; bowel sounds are present in all four quadrants. PEG EXTREMITIES: Left AKA SEWER: Sedated on vent. (Ayaka Arzola) Assessment and Plan Plan ASSESSMENT: - Left sided colitis. Pt admitted for sepsis, HCAP, UTI. CT Scan of the abdomen and pelvis with IV contrast (07/31/17) CT suggests mild left-sided colitis in the proper clinical setting. No obstruction, perforation, or abscess, thick-walled urinary bladder, Masters catheter present, right base infiltrate and small right tiny left pleural effusions. Of note, he does have a history of C. Difficile back in October of 2016 and was treated with Flagyl and Vanco. CDiff negative. D/W radiology, unable to reconstruct CT scan. + loose stool. WBC 14.7. Cont. Abx. - Dysphagia. Gets pureed diet with supplemental feedings via peg at rehab center. Now with pna. Will get ST to evaluate for swallow evaluation and also have construction electrician make recommendations for diet with supplemental nighttime feedings and just TF feedings. ST following, recommends NPO. May need egd +/- dilatation once more stable. - Elevated transaminases, likely shocked liver. CT as above. T. Bili 0.3, AST 522, ALT 470, ALk Phosph 85. This is likely related to shocked liver, trending down now. Hepatitis profile negative. REINIER, ASMA, AMA pending. - CARMELITA. 8.6/27.0. - Sepsis, HCAP, UTI. Azactam - Resp. Failure with pna. On vent. - Acute on chronic kidney dz. Creat 1.04. - Acute metabolic encephalopathy. lethargic, but answers questions/confused. ? baseline. - Dementia, Decubitus ulcer, HTN, BPH, CAD, PAD, Paroxysmal afib. per attending. PLAN: - Jevity 1.5 at 55cc/hr - Add Reglan - Monitor LFTs - Hepatitis profile - REINIER, ASMA, AMA - Supportive care - Further recommendations to follow based on results of above - Pt seen and examined by Dr. Soto and myself and this note is written on his behalf (Ayaka Arzola) Physician Comments Seen and examined with SIGIFREDO, possible illeus. Check KUB , reglan added. Slow TF. (Pina Soto MD) Ayaka Arzola Aug 03, 2017 09:26 Pina Soto MD Aug 03, 2017 11:09
[2017-08-03] MEDS: FERROUS SULFATE 325 MG (65 MG ELEMENTAL IRON) TAB PO SCH ×3 (09:28→16:44)
[2017-08-03] MEDS: SODIUM CHLORIDE 0.9% FLUSH 10 ML FLUSH IV FLUSH SCH ×2 (09:28→21:12)
[2017-08-03] MEDS: FAMOTIDINE 20 MG/2 ML VIAL IV PUSH SCH ×2 (09:28→21:12)
[2017-08-03] MEDS: HEPARIN SODIUM - SQ 10,000 UNITS/ML VIAL SQ SCH ×2 (09:28→21:12)
[2017-08-03] MEDS: ASCORBIC ACID 500 MG TAB PO SCH (09:28)
[2017-08-03] MEDS: DOCUSATE SODIUM 50 MG/SENNA 8.6 MG TAB PO SCH ×2 (09:28→21:13)
[2017-08-03] MEDS: LACTOBACILLUS ACIDOPHILUS 1 GM PACKET PEG SCH ×3 (09:28→16:44)
[2017-08-03] MEDS: SODIUM HYPOCHLORITE 0.125% 500 ML BTL TOPICAL SCH ×2 (09:29→21:13)
[2017-08-03] MEDS: ZINC OXIDE 20% OINT 30 GM TUBE TOPICAL SCH ×2 (09:29→21:14)
--- NOTE | 2017-08-03 10:44 | EKG ---
Date Performed: 08/02/2017 Time Performed: 14:36:52 PTAGE: 86 years EKG: Sinus rhythm WITH FREQUENT VENTRICULAR PREMATURE COMPLEXES SEPTAL MYOCARDIAL INFARCTION , PROBABLY OLD ABNORMAL E CG PREVIOUS TRACING : 07/31/2017 17.49 DOCTOR: Rick Manrique Interpretating Date/Time 08/03/2017 10:42:14
[2017-08-03] MEDS: SODIUM BICARBONATE 8.4% INJ 75 MEQ in SODIUM CHLOR 0.45% 1000 ML INJ 1,000 ML IV SCH ×2 (11:34→17:39)
[2017-08-03 12:59] LABS: BLOOD GAS BASE EXCESS -6.2 mmol/L (-2-2); BLOOD GAS HCO3 19 mmol/L (22-26); BLOOD GAS METHEMOGLOBIN 1.1 % (0-2); BLOOD GAS O2 HGB SATURATION 90 % (90-100); BLOOD GAS OXYGEN CONTENT 11.1 Vol % (12.0-20.0); BLOOD GAS PCO2 37 mmHg (38-42); BLOOD GAS PO2 64 mmHg (61-120); BLOOD GAS TOTAL HGB 8.7 G/DL (12.0-16.0); TEMP CORR TO 98.6
[2017-08-03 13:00] LABS: CRITICAL VALUE NO; DRAW SITE RT RADIAL; FIO2 35 %; NUMBER OF ARTERIAL PUNCTURES 1; OXYGEN DEVICE VENTILATOR; STAT NO; ULNAR PULSE PRESENT; VENT SETTINGS 550/14/7PEEP
[2017-08-03] MEDS: ARTIFICIAL TEARS OPTH OINT 3.5 APPLIC/3.5 GM TUBO LEFT EYE SCH ×2 (13:30→21:00)
--- NOTE | 2017-08-03 13:30 | HHI.CCPN ---
Subjective Remarks/Hospital Course 86-year-old male with past medical history of dementia, Parkinson's, bedridden, sacral decubitus ulcers, PAD with left AKA, tobacco abuse, BPH, GERD , PEG, prior tracheostomy that has subsequently been decannulated who presents to [facility] emergency department with respiratory distress. He is on a pured diet and gets supplemental bolus feeds at mealtime depending on how much that he takes by mouth. Today he did not have very much appetite, did not eat much, received a bolus feed. He then had an episode of vomiting and subsequently had tachypnea. He desaturated into the 70s on room air. He was placed on supplemental oxygen. He had rigors and fever and therefore was brought to [facility] emergency Department was where she was found to be in septic shock with multiorgan dysfunction. He has right middle lobe and right lower lobe pneumonia and urinary tract infection. Temperature is 100.6. Blood pressure is 82/49 with a lactic acid of 8.1. He is in acute kidney injury with creatinine 1.35. He has not had any diarrhea. He denies abdominal pain but has voluntary guarding on exam. (History from him is almost non existent, this is based on verbal and nonverbal cues interpreted by his ) He received vancomycin and aztreonam in the emergency department. He has received 3 L normal saline bolus. Hospitalized at [facility] in October 2016 with C. difficile and HCAP with respiratory failure. He was intubated and extubated several times and ultimately underwent tracheostomy 11/15/16 and PEG. He was recently hospitalized at [facility] 1-1/2 months ago related to infection of his sacral wound which has had multiple debridements. Reportedly has recently been on antibiotics for UTI. denies known ho MDRO. Subjective: 08/01: Tmax 99.1. Patient alert to name only, denies pain. O2 requirements decreased currently on Ventimask at 40%. Patient having multiple loose bowel movements, C. difficile PCR pending. 08/02: Afebrile. Patient noted to have increasing O2 requirements this a.m. , chest x-ray shows worsening opacities now with leukocytosis and bandemia. Patient noted to have gram-negative bacteremia. Patient currently on atrezonam and metronidazole. ID consulted appreciate recommendations. CDiff PCR noted to be negative. Today afternoon the patient was noted to go into atrial fibrillation with a heart rate in the 140s-160s was placed on a Cardizem infusion ,now rate is controlled will be transitioned to PO Cardizem. Metabolic acidosis slightly improved sodium bicarbonate drip decreased to 30 cc/hour. Plan for revision of left AKA stump this a.m. at the bedside with Dr. Connelly, under local anesthesia. 08/03: Afebrile. Patient was placed on tube feeds at 55 cc/an hour, did not tolerate, large residuals. Patient was placed on metoclopramide per GI, and tube feeds now placed on hold. The patient continues on fentanyl infusion baseline neurological status as previously noted. Decreasing oxygen requirements, currently on 35% FiO2. Blood cultures revealed variable gram- negative rods. Discussed with ID tentative plan for revision of AKA, per Dr. Bowman due to the recent results of gram-negative variable rods recommendation not to perform revision at this time. Planned to perform revision after negative blood cultures obtained and 2 or 3 days have elapsed. Objective Vital Signs Date Time Temp Pulse Resp B/P (MAP) Pulse Ox O2 Delivery O2 Flow Rate FiO2 08/03/17 12:00 35 08/03/17 12:00 98.8 75 13 102/50 (67) 100 08/03/17 07:00 Mechanical Ventilator 08/02/17 09:13 15.00 Intake and Output 08/03/17 08/03/17 08/04/17 08:00 16:00 00:00 Intake Total 1238 ml Output Total 150 ml Balance 1088 ml Result Diagram: 08/03/17 0400 08/03/17 0400 Other Results Microbiology Date/Time Source Procedure Growth Status 07/31/17 19:35 Nasal Washing Influenza Types A,B Antigen (JAKOB) - Final NEGATIVE FOR FLU A AND B ANTIGEN.... Complete 08/02/17 09:50 Urine Catheterized Urine Legionella Antigen - Final PRESUMPTIVE NEGATIVE FOR LEGIONELLA P... Complete 08/02/17 09:50 Urine Catheterized Urine Streptococcus pneumoniae Antigen (M - Final PRESUMPTIVE NEGATIVE FOR STREPTOCOCCU... Complete 07/31/17 18:44 Urine Catheterized Urine Urine Culture - Final 50-100,000 CFU/ML MIXED GRAM POSITIVE... Complete Laboratory Tests Test 08/02/17 13:42 08/03/17 12:50 Blood Gas Puncture Site RT BRACHIAL RT RADIAL Blood Gas Patient Temperature 98.6 98.6 Blood Gas HCO3 18 mmol/L (22-26) 19 mmol/L (22-26) Blood Gas Base Excess -8.5 mmol/L (-2-2) -6.2 mmol/L (-2-2) Blood Gas Oxygen Saturation 98 % (90-100) 90 % (90-100) Arterial Blood pH 7.22 (7.380-7.420) 7.32 (7.380-7.420) Arterial Blood Partial Pressure CO2 45 mmHg (38-42) 37 mmHg (38-42) Arterial Blood Partial Pressure O2 237 mmHg (61-120) 64 mmHg (61-120) Arterial Blood Oxygen Content 15.8 Vol % (12.0-20.0) 11.1 Vol % (12.0-20.0) Arterial Blood Carboxyhemoglobin 0.4 % (0-4) 1.0 % (0-4) Arterial Blood Methemoglobin 0.9 % (0-2) 1.1 % (0-2) Blood Gas Hemoglobin 11.1 G/DL (12.0-16.0) 8.7 G/DL (12.0-16.0) Oxygen Delivery Device VENTILATOR VENTILATOR Blood Gas Ventilator Setting AC/14/550/PEEP 7 550/14/7PEEP Blood Gas Inspired Oxygen 100 % 35 % Imaging Last Impressions Chest X-Ray 07/31/171731 Signed Impressions: Service Date/Time: Monday, July 31, 2017 19:04 - CONCLUSION: Possible right midlung infiltrate. Recommend followup films. Aneudy Wong MD Abdomen/Pelvis CT 07/31/17 0000 Signed Impressions: Service Date/Time: Monday, July 31, 2017 22:53 - CONCLUSION: 1. CT suggests mild left-sided colitis in the proper clinical setting. No obstruction , perforation or abscess. 2. Thick waledl urinary bladder. Masters catheter present. 3. Right base infiltrate and small right, tiny left pleural effusions. 1. Arivnd Márquez MD Last 24 hours Impressions Chest X-Ray 07/31/171731 Signed Impressions: Service Date/Time: Monday, July 31, 2017 19:04 - CONCLUSION: Possible right midlung infiltrate. Recommend followup films. Aneudy Wong MD Objective Remarks GENERAL: Elderly thin frail chronically ill appearing male with contracture intubated and lightly sedated SKIN: Warm and dry. Multiple wound openings to include sacral, bilateral greater trochanters and bone protrusion left AKA HEAD: Atraumatic. Normocephalic. EYES: Right pupil 1 mm and sluggishly reactive. Left pupil is about 3 mm, aniscoria, appears nonreactive. No scleral icterus. No injection or drainage. ENT: No nasal bleeding or discharge. Mucous membranes dry. Intubated NECK: Trachea midline. No JVD. Right carotid endarterectomy scar well-healed. CARDIOVASCULAR: Irregular with sinus rhythm on the monitor with PACs and multifocal PVCs. Heart sounds are very distant. No murmur appreciated RESPIRATORY: Bilateral chest excursion. No accessory muscle use. Coarse rhonchi bilateral lung fonseca. No wheeze or Rales. GASTROINTESTINAL: Abdomen scaphoid, PEG tube in place with site benign appearing , no drainage. He has voluntary guarding with palpation of right abdomen, no apparent rebound. Bowel sounds hypoactive. : Masters rich urine MUSCULOSKELETAL: Extremities without clubbing, cyanosis. He is s/p L AKA. There is ulceration of stump with small spike of bone protruding through, no exudate. There is about 6x7 cm sacral decubitus wound stage IV s/p debridement with no fluctuance or surrounding cellulitis.There is ~2 cm ulcerations bilateral trochanters without drainage. NEUROLOGICAL: RASS-2, currently sedated on fentanyl infusion .Upper extremities with increased flexor tone bilaterally, moves spontaneously. R lower extremity contracted. Urinary Catheter: Yes Assessment to: Continue Date of Insertion: Aug 01, 2017 Date of Insertion: Aug 01, 2017 Line: Central Venous Catheter Side: Right Location: Subclavian A/P Problem List: (1) History of lucien hole surgery ICD Code: Z98.89 - History of lucien hole surgery Status: Chronic (2) Septic shock ICD Code: A41.9 - Sepsis, unspecified organism; R65.21 - Severe sepsis with septic shock Status: Acute (3) UTI (urinary tract infection) ICD Code: N39.0 - UTI (urinary tract infection) Status: Acute (4) Dementia ICD Code: F03.90 - Dementia Status: Chronic (5) HTN (hypertension) ICD Code: I10 - HTN (hypertension) Status: Chronic (6) CKD (chronic kidney disease), stage III ICD Code: N18.3 - CKD (chronic kidney disease), stage III Status: Chronic (7) HCAP (healthcare-associated pneumonia) ICD Code: J18.9 - Pneumonia, unspecified organism Status: Acute (8) Decubital ulcer ICD Code: L89.90 - Pressure ulcer of unspecified site, unspecified stage Status: Chronic (9) S/P AKA (above knee amputation) unilateral ICD Code: Z89.619 - Acquired absence of unspecified leg above knee (10) History of BPH ICD Code: Z87.438 - History of BPH Status: Chronic (11) CAD (coronary artery disease) ICD Code: I25.10 - Atherosclerotic heart disease of enterprise coronary artery without angina pectoris Status: Chronic (12) Bed confinement status ICD Code: Z74.01 - Bed confinement status Status: Chronic (13) Dysphagia ICD Code: R13.10 - Dysphagia, unspecified Status: Chronic (14) Leukocytosis ICD Code: D72.829 - Leukocytosis Status: Acute Assessment and Plan NEURO: Acute toxic metabolic encephalopathy overlying Dementia Parkinson's disease Bedridden with contractures H/O R subdural with lucien hole and SDH evacuation 04/[address] Sloan H/O R CEA Continue donepezil 10 mg by mouth daily at bedtime Hold sedative/non essential medications but he is chronically on melatonin 5 mg daily at bedtime, Xanax 0.25 mg daily, Zoloft 25 twice a day Fentanyl infusion for ventilator synchrony, maintain RASS -2 RESP: Respiratory distress with acute hypoxemia Healthcare associated pneumonia versus aspiration History of tobacco abuse Small right pleural effusion Prior tracheostomy s/p decannulation DuoNeb every 6 hours scheduled. Albuterol every 2 hours as needed. 08/01 Chest x-ray demonstrates worsening , now diffuse bilateral opacities. Antibiotics as per below 08/02 patient emergently intubated 8.0 at 23 cm at the lip Follow up sputum culture CV: Coronary artery disease with prior stents Essential hypertension Paroxysmal atrial fibrillation Septic shock Lactic acidemia PAD Hold lisinopril due to hypotension and NAYE He is not chronically anticoagulated for A. fib 07/31 A. fib RVR placed on Cardizem infusion, with 5 mg/hour we'll transition to 80 mg every 6 hours, normotensive Received 3 L normal saline bolus in the ED 07/31. Resolving metabolic acidosis with bicarbonate of 20 and base deficit of 5.9 Continue 0.45 NaCl with 75 mEq of bicarbonate 75 mL per hour GI: Dysphagia Colitis Diverticulosis Loose stools On pured diet at baseline. Nothing by mouth. 08/01 C. difficile PCR-negative Has PEG for supplemental feeds. Management per GI 08/02 tube feeds initiated noted high residuals discontinued, Reglan initiated TID Lipase negative. Obtained CT abdomen and pelvis which demonstrated colitis descending colon. Mesenteric ischemia is a consideration. Will treat supportively with fluid resuscitation and abx. Overall prognosis poor and does not appear to be an operative candidate. FEN/RENAL: Acute kidney injury BPH s/p TURP No hydronephrosis noted on CT scan. Fluid resuscitation as per above. Insert Masters which is necessary to monitor urine output as marker of organ perfusion in the setting of septic shock and renal failure, and multiple open wounds ID: HCAP versus aspiration UTI/cystitis - u/a with many yeast. Followup culture. Diflucan 100 mg IV daily , adjusted for renal function. Sacral and hip decubitus ulcers present on admission Influenza negative Check urine legionella and pneumococcal antigen Follow-up urine and blood cultures. Obtain sputum culture Vancomycin pharmacy dosing. Calculated creatinine clearance is 37. Aztreonam 2 g IV every 8 hours and adjust if creatinine clearance drops below 30. (PCN allergy) Flagyl 500 mg IV every 8 hours for anaerobic coverage. 08/01 C diff PCR-negative Discussed with Dr. Bowman -antibiotic management per ID. Recommendations not to perform AKA stump revision at this time secondary to new results of blood culture gram-negative variable rods. MSK: S/P L AKA - 07/31 stump with poor healing bone protrusion. states she has been told before he was not an operative candidate for revision of the wound, however perhaps could rongeur at bedside? Per ID recommendations postpone AKA revision secondary to the culture results of variable gram-negative rods Specialty Bed 08/01-discussed with Dr. Connelly yesterday plan for revision AKA under local anesthesia at bedside HEME: Chronic iron deficiency anemia Reactive thrombocytosis Continue Ferrous sulfate 325 mill grams by mouth 3 times a day ENDO: Hyperglycemia associated with tube feed administration Monitor bedside glucose every 6 hours and initiate low-dose insulin sliding scale as indicated. PROPH: Heparin subcutaneous for DVT prophylaxis. Famotidine 20mg BID ACCESS: Has peripheral IV. central line placement 07/31 right subclavian Patient is critically ill with septic shock and multiorgan dysfunction who is at risk for further decompensation or . states he has a living will and that she is his healthcare surrogate. She states that he had stated that he wanted to be FULL CODE. She states she would place consideration to change of code status if his condition worsened but she states she feels he has "rallied" since when he was initially admitted and that he appears to still want to fight. 08/01-obtain palliative care consulted- requests continued aggressive measures Discussed with Latosha Ramesh and ELEVATOR INSTALLER at bedside (Jimena) This patient remains critically ill with one or more organ systems which are or may become a threat to life. I have spent in excess of 34 minutes discontinuously in the care and management of this patient. This time is exclusive of procedures, and includes, but is not limited to, evaluation of the patient, review of the medical record, discussions with family, consultants, nursing staff, or respiratory therapy, and documentation in the medical record. Physician Griselda Bateman Problem Qualifiers (1) UTI (urinary tract infection): Qualified Codes: N39.0 - Urinary tract infection, site not specified; R31.9 - Hematuria, unspecified (2) Dementia: (3) HTN (hypertension): Qualified Codes: I10 - Essential (primary) hypertension Griselda Bateman MD Aug 03, 2017 13:30
[2017-08-03] MEDS: METOCLOPRAMIDE HCL 10 MG/2 ML VIAL IV PUSH SCH ×2 (14:01→21:11)
--- NOTE | 2017-08-03 14:52 | HHI.IDPN ---
Subjective Subjective Remarks Mr. Holguin is a 86 years old male with a past medical history of dementia, Parkinson's, PVD with left AKA, tobacco abuse, BPH, GERD, bed ridden with sacral decubitus ulcers, PEG and history of tracheostomy that was decannulated. Patient is on a pureed diet and gets supplemental bolus feeding via PEG. Apparently, patient vomited after [facility] and thereafter developed signs of respiratory distress. O2 saturation was in the low 70`s on room air. [facility] room due to tachypnea, elevated temperature and tachycardia. In ER, Tmax of 101.7 degrees F per rectum, heart rate 129. Patient was also hypotensive. Sepsis workup initiated. Laboratory workup revealed WBC 9.3, hemoglobin 12.7, hematocrit 39.9, platelet count 536, sodium 138, potassium 4.3 , BUN/creatinine 33/1.35, random glucose 99, lactic acid 8.1, AST 104, ALT for focal troponin 0.35, albumin 2.2, protein 7.7. Urine showed large leukocyte esterase, urine culture pending. Chest x-ray revealed possible right midlung infiltrate. CT abdomen/pelvis revealed mild left-sided colitis, no obstruction , perforation or abscess, right base infiltrate and small right tiny left pleural effusions. Patient was found to have acute kidney injury, RML and RLL pneumonia, and urinary tract infection. Patient was treated with vancomycin, aztreonam in the ER and 3L NS. Patient was admitted in ICU for further evaluation and treatment. ICU course complicated with increased respiratory distress and confusion. GI consulted for evaluation and treatment of left-sided colitis. Palliative care consulted to assist with clarifying goals of care. Per review of palliative care records it appears patient has had a decline since Oct this year with multiple hospitalizations. Patient has been residing at [facility] since 2014 and was able to transfer himself from bed to , feed himself and carry a simple conversation with his . Patient has been bedridden since he developed the sacral ulcer and totally dependent for all his ADLs. Patient has dementia and is oriented to self only. Blood cultures done on admission are positive for Kleb pneumo. ID consulted for Kleb pneumo bacteremia and Colitis. There is concern for Ischemic colitis given his vascular history. Cdiff is negative this admission and patient was not on any anti-cdiff treatment per records. Urine cultures are negative. There is concern for aspiration Pneumonia given the history from SNF> Overnight events reviewed. No fevers No rash No diarrhea Not on pressors. BCX repeat are positive for GNR UO low. Not tolerating tube feeds. Antibiotics Azactam IV Flagyl oral. Lines Line sites with no e.o infection Past Medical History reviewed Allergies: Coded Allergies: Fish Containing Products (Unverified Allergy, Severe, 04/25/17) levofloxacin (Unverified Allergy, Severe, 04/25/17) lorazepam (Unverified Allergy, Severe, 04/25/17) morphine (Unverified Allergy, Severe, 04/25/17) penicillin G (Unverified Allergy, Severe, 04/25/17) sulfamethoxazole (Unverified Allergy, Severe, hives, 04/25/17) trimethoprim (Unverified Allergy, Severe, hives, 04/25/17) acetaminophen (Verified Allergy, Mild, ITCHING, 07/31/17) hydrocortisone (Unverified Allergy, Unknown, UNKNOWN, 04/25/17) Objective . Vital Signs Date Time Temp Pulse Resp B/P (MAP) Pulse Ox O2 Delivery O2 Flow Rate FiO2 08/03/17 12:00 35 08/03/17 12:00 98.8 75 13 102/50 (67) 100 08/03/17 12:00 75 08/03/17 11:52 99 45 08/03/17 10:00 78 08/03/17 08:00 97.1 90 17 136/58 (84) 100 08/03/17 08:00 90 08/03/17 08:00 35 08/03/17 07:21 100 35 08/03/17 07:00 100 Mechanical Ventilator 35 08/03/17 06:00 79 08/03/17 04:02 100 35 08/03/17 04:00 97.8 70 14 100/49 (66) 100 08/03/17 04:00 40 08/03/17 04:00 70 08/03/17 02:00 71 08/03/17 00:00 97.8 73 15 100/48 (65) 100 08/03/17 00:00 40 08/03/17 00:00 73 08/02/17 23:36 100 35 08/02/17 22:14 100 40 08/02/17 22:00 79 08/02/17 20:00 40 08/02/17 20:00 75 08/02/17 20:00 97.5 75 13 128/56 (80) 100 08/02/17 19:48 100 40 08/02/17 19:00 100 Mechanical Ventilator 40 08/02/17 18:00 73 08/02/17 16:00 97.2 83 14 113/55 (74) 100 08/02/17 16:00 50 08/02/17 16:00 83 08/02/17 15:22 100 50 08/03/17 08/03/17 08/04/17 15:00 23:00 07:00 Intake Total 100 ml Balance 100 ml Intake IV Total 100 ml . Laboratory Tests Test 08/02/17 05:20 08/03/17 04:00 White Blood Count 14.7 TH/MM3 14.7 TH/MM3 Red Blood Count 3.10 MIL/MM3 2.93 MIL/MM3 Hemoglobin 9.0 GM/DL 8.6 GM/DL Hematocrit 28.3 % 27.0 % Mean Corpuscular Volume 91.1 FL 92.0 FL Mean Corpuscular Hemoglobin 29.0 PG 29.3 PG Mean Corpuscular Hemoglobin Concent 31.9 % 31.8 % Red Cell Distribution Width 17.9 % 18.1 % Platelet Count 348 TH/MM3 338 TH/MM3 Mean Platelet Volume 7.8 FL 8.3 FL Neutrophils (%) (Auto) 93.8 % 91.3 % Lymphocytes (%) (Auto) 3.3 % 4.6 % Monocytes (%) (Auto) 2.6 % 2.2 % Eosinophils (%) (Auto) 0.1 % 1.6 % Basophils (%) (Auto) 0.2 % 0.3 % Neutrophils # (Auto) 13.8 TH/MM3 13.4 TH/MM3 Lymphocytes # (Auto) 0.5 TH/MM3 0.7 TH/MM3 Monocytes # (Auto) 0.4 TH/MM3 0.3 TH/MM3 Eosinophils # (Auto) 0.0 TH/MM3 0.2 TH/MM3 Basophils # (Auto) 0.0 TH/MM3 0.0 TH/MM3 CBC Comment AUTO DIFF AUTO DIFF Differential Total Cells Counted 100 100 Neutrophils % (Manual) 28 % 88 % Band Neutrophils % 47 % 10 % Lymphocytes % 4 % Monocytes % 2 % 1 % Neutrophils # (Manual) 13.8 TH/MM3 14.6 TH/MM3 Metamyelocytes 19 % 1 % Differential Comment FINAL DIFF MANUAL FINAL DIFF MANUAL Dohle Bodies PRESENT Platelet Estimate NORMAL NORMAL Platelet Morphology Comment NORMAL NORMAL Laboratory Tests Test 08/02/17 05:20 08/02/17 07:30 08/02/17 14:00 08/02/17 17:45 Lactic Acid Level 2.6 mmol/L Blood Urea Nitrogen 31 MG/DL Creatinine 0.82 MG/DL Random Glucose 79 MG/DL Calcium Level 7.6 MG/DL Sodium Level 144 MEQ/L Potassium Level 3.1 MEQ/L 4.5 MEQ/L Chloride Level 112 MEQ/L Carbon Dioxide Level 20.0 MEQ/L Anion Gap 12 MEQ/L Estimat Glomerular Filtration Rate 89 ML/MIN Phosphorus Level 2.3 MG/DL Total Bilirubin 0.3 MG/DL Direct Bilirubin 0.2 MG/DL Indirect Bilirubin 0.1 MG/DL Aspartate Amino Transf (AST/SGOT) 872 U/L Alanine Aminotransferase (ALT/SGPT) 569 U/L Alkaline Phosphatase 86 U/L Total Protein 5.9 GM/DL Albumin 1.7 GM/DL Test 08/03/17 04:00 Blood Urea Nitrogen 41 MG/DL Creatinine 1.04 MG/DL Random Glucose 78 MG/DL Total Protein 5.4 GM/DL Albumin 1.5 GM/DL Calcium Level 7.8 MG/DL Phosphorus Level 1.5 MG/DL Magnesium Level 1.7 MG/DL Alkaline Phosphatase 85 U/L Aspartate Amino Transf (AST/SGOT) 522 U/L Alanine Aminotransferase (ALT/SGPT) 470 U/L Total Bilirubin 0.3 MG/DL Sodium Level 143 MEQ/L Potassium Level 4.2 MEQ/L Chloride Level 112 MEQ/L Carbon Dioxide Level 17.7 MEQ/L Anion Gap 13 MEQ/L Estimat Glomerular Filtration Rate 67 ML/MIN Microbiology Date/Time Source Procedure Growth Status 08/02/17 14:00 Blood Peripheral Aerobic Blood Culture - Preliminary Gram Variable Dinesh Resulted 08/02/17 14:00 Blood Peripheral Anaerobic Blood Culture - Preliminary NO GROWTH IN 1 DAY Resulted 08/02/17 13:50 Blood Peripheral Aerobic Blood Culture - Preliminary Gram Variable Dinesh Resulted 08/02/17 13:50 Blood Peripheral Anaerobic Blood Culture - Preliminary NO GROWTH IN 1 DAY Resulted 07/31/17 18:17 Blood Peripheral Aerobic Blood Culture - Preliminary NO GROWTH IN 3 DAYS Resulted 07/31/17 18:17 Blood Peripheral Anaerobic Blood Culture - Preliminary NO GROWTH IN 3 DAYS Resulted 07/31/17 18:07 Blood Peripheral Aerobic Blood Culture - Preliminary NO GROWTH IN 3 DAYS Resulted 07/31/17 18:07 Anaerobic Blood Culture - Final Klebsiella Pneumoniae Resulted 08/02/17 14:00 Sputum Expectorated Sputum Gram Stain - Final Resulted 08/02/17 14:00 Sputum Expectorated Sputum Sputum Culture Pending Resulted 07/31/17 19:35 Nasal Washing Influenza Types A,B Antigen (JAKOB) - Final NEGATIVE FOR FLU A AND B ANTIGEN.... Complete 08/02/17 09:50 Urine Catheterized Urine Legionella Antigen - Final PRESUMPTIVE NEGATIVE FOR LEGIONELLA P... Complete 08/02/17 09:50 Urine Catheterized Urine Streptococcus pneumoniae Antigen (M - Final PRESUMPTIVE NEGATIVE FOR STREPTOCOCCU... Complete 07/31/17 18:44 Urine Catheterized Urine Urine Culture - Final 50-100,000 CFU/ML MIXED GRAM POSITIVE... Complete 08/02/17 12:50 Wound Other Gram Stain - Final Resulted 08/02/17 12:50 Wound Culture - Preliminary Group D Enterococcus Gram Negative Dinesh Resulted Imaging Last Impressions Chest X-Ray 08/03/17 0600 Signed Impressions: Service Date/Time: July 04:07 - CONCLUSION: No significant change. Patchy diffuse airspace disease of both lungs. Arvind Márquez MD Abdomen/Pelvis CT 07/31/17 0000 Signed Impressions: Service Date/Time: Monday, July 31, 2017 22:53 - CONCLUSION: 1. CT suggests mild left-sided colitis in the proper clinical setting. No obstruction , perforation or abscess. 2. Thick waledl urinary bladder. Masters catheter present. 3. Right base infiltrate and small right, tiny left pleural effusions. 1. Arvind Márquez MD Physical Exam GENERAL: This is a well-nourished, well-developed patient, in no apparent distress. SKIN: No rashes, ecchymoses or lesions. Cool and dry. HEAD: Atraumatic. Normocephalic. No temporal or scalp tenderness. EYES: Pupils equal round and reactive. Extraocular motions intact. No scleral icterus. No injection or drainage. ENT: Intubated. NECK: Trachea midline. Supple, nontender, no meningeal signs. CARDIOVASCULAR: Regular rate and rhythm without murmurs, gallops, or rubs. RESPIRATORY: Clear to auscultation. Breath sounds equal bilaterally. No wheezes , rales, or rhonchi. GASTROINTESTINAL: Abdomen soft, non-tender, nondistended. MUSCULOSKELETAL: Left LE ulcer on stump with clean margins no erythema. Bone spur protruding from skin. Multiple decubs as per wound care/RN notes. Reviewed with the RN. NEUROLOGICAL: Sedated Psych could not be assessed IV line sites with no e.o infection Assessment & Plan Remarks Sepsis Kleb pneumo Bacteremia: likely GI source. Urine Cx neg Left AKA stump with protruding bone but no infection PEG tube status. Acute resp failure Acute metabolic encephalopathy: baseline dementia and parkinsons. Sepsis contributing factor. 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 Cdiff negative. Recs Continue Azactam IV Continue Flagyl will switch to oral. Repeat blood cultures x 2. Follow cultures Follow clinically yovany Pineda. Yarely Bowman MD Aug 03, 2017 14:52
[2017-08-03] MEDS ORDERED: PHARMACY ORDERED LAB ONE (17:45)
[2017-08-03] MEDS: DONEPEZIL HCL 5 MG TAB PO SCH (21:13)
[2017-08-04] VITALS (18 sets, daily range): BP systolic 86–129; BP diastolic 51–67; PULSE 81–128; RESP 13–20; TEMP 97.9–98.7; O2SAT 97–100
[2017-08-04] MEDS: DILTIAZEM HCL 30 MG TAB PO SCH ×6 (01:08→23:08)
[2017-08-04] MEDS: INSULIN ASPART SUPPLEMENTAL SCALE SQ SCH ×4 (03:15→21:15)
[2017-08-04] MEDS: RESP: ALBUTEROL 2.5 MG/IPRATROPIUM 0.5 MG NEB (SCH) NEB ×4 (03:20→19:22)
[2017-08-04] MEDS: CHLORHEXIDINE GLUCONATE 2 % 1 PACK (2 CLOTHS) TOP SCH (03:53)
[2017-08-04 05:10] LABS: BLOOD GAS BASE EXCESS -4.3 mmol/L (-2-2); BLOOD GAS HCO3 20 mmol/L (22-26); BLOOD GAS O2 HGB SATURATION 91 % (90-100); BLOOD GAS OXYGEN CONTENT 11.7 Vol % (12.0-20.0); BLOOD GAS PCO2 38 mmHg (38-42); BLOOD GAS PO2 68 mmHg (61-120); CRITICAL VALUE NO; OXYGEN DEVICE VENTILATOR; TEMP CORR TO 98.6
[2017-08-04 05:11] LABS: DRAW SITE RT BRACHIAL; FIO2 40 %; NUMBER OF ARTERIAL PUNCTURES 1; STAT NO; ULNAR PULSE PRESENT; VENT SETTINGS AC14/440/+7
[2017-08-04] MEDS: METOCLOPRAMIDE HCL 10 MG/2 ML VIAL IV PUSH SCH ×3 (05:27→21:47)
[2017-08-04] MEDS: AZTREONAM INJ 2,000 MG in SODIUM CHLORIDE 0.9% INJ 100 ML IV SCH ×3 (05:30→21:48)
[2017-08-04] MEDS: fentaNYL DRIP 250 ML IV PRN ×2 (05:40→21:48)
[2017-08-04 06:45] LABS: AUTOMATED NEUTROPHIL # 13.2 TH/MM3 (1.8-7.7); BASOPHIL % 0.3 % (0.0-2.0); EOSINOPHIL # 0.1 TH/MM3 (0-0.4); EOSINOPHIL % 0.5 % (0.0-4.0); HEMATOCRIT 27.2 % (39.0-51.0); LYMPH % 4.9 % (9.0-44.0); LYMPHOCYTE # 0.7 TH/MM3 (1.0-4.8); MEAN CELL VOLUME 90.8 FL (80.0-100.0); MEAN CORPUSCULAR HEMOGLOBIN 29.1 PG (27.0-34.0); MEAN CORPUSCULAR HGB CONC 32.1 % (32.0-36.0); MONO % 3.3 % (0.0-8.0); PLATELET COUNT 325 TH/MM3 (150-450); RED CELL DISTRIBUTION WIDTH 18.3 % (11.6-17.2); WHITE BLOOD COUNT 14.5 TH/MM3 (4.0-11.0)
[2017-08-04 06:52] LABS: HEMO FLAGS AUTO DIFF
[2017-08-04 07:11] LABS: BICARBONATE 22.1 MEQ/L (21.0-32.0); MAGNESIUM 1.6 MG/DL (1.5-2.5); POTASSIUM 3.2 MEQ/L (3.5-5.1)
[2017-08-04 07:29] LABS: CALCIUM-PROTEIN CORRECTED 8.3 MG/DL (8.5-10.1)
[2017-08-04 07:41] LABS: BANDS 11 % (0-6); NEUTROPHIL # MANUAL DIFF 13.8 TH/MM3 (1.8-7.7); POLYS (SEG NEUTROPHILS) 84 % (16-70); WBC DIFF SAMPLE 100
[2017-08-04 07:42] LABS: PLATELET ESTIMATE SMEAR NORMAL (NORMAL); PLATELET MORPHOLOGY NORMAL (NORMAL); SCAN/DIFF FINAL DIFF MANUAL
[2017-08-04] MEDS: FAMOTIDINE 20 MG/2 ML VIAL IV PUSH SCH ×2 (08:32→21:47)
[2017-08-04] MEDS: ASCORBIC ACID 500 MG TAB PO SCH (08:32)
[2017-08-04] MEDS: HEPARIN SODIUM - SQ 10,000 UNITS/ML VIAL SQ SCH ×2 (08:33→21:49)
[2017-08-04] MEDS: ARTIFICIAL TEARS OPTH OINT 3.5 APPLIC/3.5 GM TUBO LEFT EYE SCH ×2 (08:33→21:46)
[2017-08-04] MEDS: LACTOBACILLUS ACIDOPHILUS 1 GM PACKET PEG SCH ×3 (08:33→18:01)
[2017-08-04] MEDS: DOCUSATE SODIUM 50 MG/SENNA 8.6 MG TAB PO SCH ×2 (08:33→21:00)
[2017-08-04] MEDS: FERROUS SULFATE 325 MG (65 MG ELEMENTAL IRON) TAB PO SCH ×3 (08:34→17:54)
[2017-08-04] MEDS: SODIUM CHLORIDE 0.9% FLUSH 10 ML FLUSH IV FLUSH SCH ×2 (08:34→21:00)
[2017-08-04] MEDS: SODIUM HYPOCHLORITE 0.125% 500 ML BTL TOPICAL SCH ×2 (08:35→21:46)
[2017-08-04] MEDS: ZINC OXIDE 20% OINT 30 GM TUBE TOPICAL SCH ×2 (08:36→21:47)
[2017-08-04] MEDS: SODIUM CHLORIDE 0.9% IRRIGATION SCH ×2 (09:00→21:00)
--- NOTE | 2017-08-04 10:16 | HHI.IDPN ---
Subjective Subjective Remarks Mr. Holguin is a 86 years old male with a past medical history of dementia, Parkinson's, PVD with left AKA, tobacco abuse, BPH, GERD, bed ridden with sacral decubitus ulcers, PEG and history of tracheostomy that was decannulated. Patient is on a pureed diet and gets supplemental bolus feeding via PEG. Apparently, patient vomited after receiving a bolus feed at the [facility] and thereafter developed signs of respiratory distress. O2 saturation was in the low 70`s on room air. Patient was sent from the intermediate to the emergency room due to tachypnea, elevated temperature and tachycardia. In ER, Tmax of 101.7 degrees F per rectum, heart rate 129. Patient was also hypotensive. Sepsis workup initiated. Laboratory workup revealed WBC 9.3, hemoglobin 12.7, hematocrit 39.9, platelet count 536, sodium 138, potassium 4.3 , BUN/creatinine 33/1.35, random glucose 99, lactic acid 8.1, AST 104, ALT for focal troponin 0.35, albumin 2.2, protein 7.7. Urine showed large leukocyte esterase, urine culture pending. Chest x-ray revealed possible right midlung infiltrate. CT abdomen/pelvis revealed mild left-sided colitis, no obstruction , perforation or abscess, right base infiltrate and small right tiny left pleural effusions. Patient was found to have acute kidney injury, RML and RLL pneumonia, and urinary tract infection. Patient was treated with vancomycin, aztreonam in the ER and 3L NS. Patient was admitted in ICU for further evaluation and treatment. ICU course complicated with increased respiratory distress and confusion. GI consulted for evaluation and treatment of left-sided colitis. Palliative care consulted to assist with clarifying goals of care. Per review of palliative care records it appears patient has had a decline since Oct this year with multiple hospitalizations. Patient has been residing at [facility] since 2014 and was able to transfer himself from bed to , feed himself and carry a simple conversation with his . Patient has been bedridden since he developed the sacral ulcer and totally dependent for all his ADLs. Patient has dementia and is oriented to self only. Blood cultures done on admission are positive for Kleb pneumo. ID consulted for Kleb pneumo bacteremia and Colitis. There is concern for Ischemic colitis given his vascular history. Cdiff is negative this admission and patient was not on any anti-cdiff treatment per records. Urine cultures are negative. There is concern for aspiration Pneumonia given the history from SNF. Overnight events reviewed. No fevers No rash No diarrhea Not on pressors. BCX repeat are positive for GNR UO low. Not tolerating tube feeds. Antibiotics Azactam IV Flagyl oral. Lines Line sites with no e.o infection Past Medical History reviewed Allergies: Coded Allergies: Fish Containing Products (Unverified Allergy, Severe, 04/25/17) levofloxacin (Unverified Allergy, Severe, 04/25/17) lorazepam (Unverified Allergy, Severe, 04/25/17) morphine (Unverified Allergy, Severe, 04/25/17) penicillin G (Unverified Allergy, Severe, 04/25/17) sulfamethoxazole (Unverified Allergy, Severe, hives, 04/25/17) trimethoprim (Unverified Allergy, Severe, hives, 04/25/17) acetaminophen (Verified Allergy, Mild, ITCHING, 07/31/17) hydrocortisone (Unverified Allergy, Unknown, UNKNOWN, 04/25/17) Objective . Vital Signs Date Time Temp Pulse Resp B/P (MAP) Pulse Ox O2 Delivery O2 Flow Rate FiO2 08/04/17 07:31 100 40 08/04/17 06:00 125 08/04/17 04:12 97 40 08/04/17 04:00 35 08/04/17 04:00 128 08/04/17 04:00 98.1 128 13 86/55 (65) 100 08/04/17 02:00 102 08/04/17 01:06 99 40 08/04/17 00:00 97.9 108 19 95/53 (67) 100 08/04/17 00:00 97.9 108 19 95/53 (67) 100 08/04/17 00:00 108 08/04/17 00:00 35 08/03/17 22:06 100 40 08/03/17 22:00 114 08/03/17 20:00 35 08/03/17 20:00 97.6 101 13 119/55 (76) 100 08/03/17 20:00 101 08/03/17 19:50 100 40 08/03/17 18:00 109 08/03/17 18:00 109 14 105/59 (74) 98 08/03/17 17:30 116 16 95/52 (66) 100 08/03/17 17:00 111 15 96/53 (67) 100 08/03/17 16:30 122 13 106/53 (70) 100 08/03/17 16:00 98.0 79 14 116/53 (74) 100 08/03/17 16:00 35 08/03/17 16:00 90 08/03/17 15:30 75 18 117/56 (76) 100 08/03/17 15:28 100 40 08/03/17 15:00 72 18 107/66 (80) 100 08/03/17 14:30 72 18 108/51 (70) 100 08/03/17 14:00 101 08/03/17 14:00 101 13 119/56 (77) 100 08/03/17 13:30 72 17 105/51 (69) 100 08/03/17 13:00 73 13 97/51 (66) 100 08/03/17 12:30 72 16 106/51 (69) 100 08/03/17 12:00 35 08/03/17 12:00 98.8 75 13 102/50 (67) 100 08/03/17 12:00 75 08/03/17 11:52 99 45 08/03/17 11:30 77 15 99/49 (66) 100 08/03/17 11:00 76 18 111/56 (74) 100 08/03/17 10:30 77 16 113/57 (75) 100 . Laboratory Tests Test 08/03/17 04:00 08/04/17 05:39 White Blood Count 14.7 TH/MM3 14.5 TH/MM3 Red Blood Count 2.93 MIL/MM3 3.00 MIL/MM3 Hemoglobin 8.6 GM/DL 8.7 GM/DL Hematocrit 27.0 % 27.2 % Mean Corpuscular Volume 92.0 FL 90.8 FL Mean Corpuscular Hemoglobin 29.3 PG 29.1 PG Mean Corpuscular Hemoglobin Concent 31.8 % 32.1 % Red Cell Distribution Width 18.1 % 18.3 % Platelet Count 338 TH/MM3 325 TH/MM3 Mean Platelet Volume 8.3 FL 8.3 FL Neutrophils (%) (Auto) 91.3 % 91.0 % Lymphocytes (%) (Auto) 4.6 % 4.9 % Monocytes (%) (Auto) 2.2 % 3.3 % Eosinophils (%) (Auto) 1.6 % 0.5 % Basophils (%) (Auto) 0.3 % 0.3 % Neutrophils # (Auto) 13.4 TH/MM3 13.2 TH/MM3 Lymphocytes # (Auto) 0.7 TH/MM3 0.7 TH/MM3 Monocytes # (Auto) 0.3 TH/MM3 0.5 TH/MM3 Eosinophils # (Auto) 0.2 TH/MM3 0.1 TH/MM3 Basophils # (Auto) 0.0 TH/MM3 0.0 TH/MM3 CBC Comment AUTO DIFF AUTO DIFF Differential Total Cells Counted 100 100 Neutrophils % (Manual) 88 % 84 % Band Neutrophils % 10 % 11 % Monocytes % 1 % 2 % Neutrophils # (Manual) 14.6 TH/MM3 13.8 TH/MM3 Metamyelocytes 1 % Differential Comment FINAL DIFF MANUAL FINAL DIFF MANUAL Platelet Estimate NORMAL NORMAL Platelet Morphology Comment NORMAL NORMAL Lymphocytes % 3 % Laboratory Tests Test 08/02/17 14:00 08/02/17 17:45 08/03/17 04:00 08/04/17 05:39 Total Bilirubin 0.3 MG/DL 0.3 MG/DL Direct Bilirubin 0.2 MG/DL Indirect Bilirubin 0.1 MG/DL Aspartate Amino Transf (AST/SGOT) 872 U/L 522 U/L Alanine Aminotransferase (ALT/SGPT) 569 U/L 470 U/L Alkaline Phosphatase 86 U/L 85 U/L Total Protein 5.9 GM/DL 5.4 GM/DL 5.5 GM/DL Albumin 1.7 GM/DL 1.5 GM/DL Potassium Level 4.5 MEQ/L 4.2 MEQ/L 3.2 MEQ/L Blood Urea Nitrogen 41 MG/DL 46 MG/DL Creatinine 1.04 MG/DL 1.07 MG/DL Random Glucose 78 MG/DL 72 MG/DL Calcium Level 7.8 MG/DL 7.4 MG/DL Phosphorus Level 1.5 MG/DL 2.3 MG/DL Magnesium Level 1.7 MG/DL 1.6 MG/DL Sodium Level 143 MEQ/L 144 MEQ/L Chloride Level 112 MEQ/L 113 MEQ/L Carbon Dioxide Level 17.7 MEQ/L 22.1 MEQ/L Anion Gap 13 MEQ/L 9 MEQ/L Estimat Glomerular Filtration Rate 67 ML/MIN 65 ML/MIN Protein Corrected Calcium 8.3 MG/DL Microbiology Date/Time Source Procedure Growth Status 08/03/17 15:10 Blood Peripheral Aerobic Blood Culture Pending Received 08/03/17 15:10 Blood Peripheral Anaerobic Blood Culture Pending Received 08/03/17 15:10 Blood Peripheral Aerobic Blood Culture Pending Received 08/03/17 15:10 Blood Peripheral Anaerobic Blood Culture Pending Received 08/02/17 14:00 Blood Peripheral Aerobic Blood Culture - Final Bacillus Species Not Anthracis Resulted 08/02/17 14:00 Blood Peripheral Anaerobic Blood Culture - Preliminary NO GROWTH IN 1 DAY Resulted 08/02/17 13:50 Blood Peripheral Aerobic Blood Culture - Final Bacillus Species Not Anthracis Resulted 08/02/17 13:50 Blood Peripheral Anaerobic Blood Culture - Preliminary NO GROWTH IN 1 DAY Resulted 08/02/17 14:00 Sputum Expectorated Sputum Gram Stain - Final Resulted 08/02/17 14:00 Sputum Culture - Preliminary Gram Negative Dinesh Resulted 08/02/17 09:50 Urine Catheterized Urine Legionella Antigen - Final PRESUMPTIVE NEGATIVE FOR LEGIONELLA P... Complete 08/02/17 09:50 Urine Catheterized Urine Streptococcus pneumoniae Antigen (M - Final PRESUMPTIVE NEGATIVE FOR STREPTOCOCCU... Complete 08/02/17 12:50 Wound Other Gram Stain - Final Resulted 08/02/17 12:50 Wound Culture - Preliminary Group D Enterococcus Escherichia Coli Esbl Positive Resulted Imaging Last Impressions Chest X-Ray 08/03/17 0600 Signed Impressions: Service Date/Time: July 04:07 - CONCLUSION: No significant change. Patchy diffuse airspace disease of both lungs. Arvind Márquez MD Abdomen/Pelvis CT 07/31/17 0000 Signed Impressions: Service Date/Time: Monday, July 31, 2017 22:53 - CONCLUSION: 1. CT suggests mild left-sided colitis in the proper clinical setting. No obstruction , perforation or abscess. 2. Thick waledl urinary bladder. Masters catheter present. 3. Right base infiltrate and small right, tiny left pleural effusions. 1. Arvind Márquez MD Physical Exam GENERAL: This is a well-nourished, well-developed patient, in no apparent distress. SKIN: No rashes, ecchymoses or lesions. Cool and dry. HEAD: Atraumatic. Normocephalic. No temporal or scalp tenderness. EYES: Pupils equal round and reactive. Extraocular motions intact. No scleral icterus. No injection or drainage. ENT: Intubated. NECK: Trachea midline. Supple, nontender, no meningeal signs. CARDIOVASCULAR: Regular rate and rhythm without murmurs, gallops, or rubs. RESPIRATORY: Clear to auscultation. Breath sounds equal bilaterally. No wheezes , rales, or rhonchi. GASTROINTESTINAL: Abdomen soft, non-tender, nondistended. MUSCULOSKELETAL: Left LE ulcer on stump with clean margins no erythema. Bone spur protruding from skin. Multiple decubs as per wound care/RN notes. Reviewed with the RN. NEUROLOGICAL: Sedated Psych could not be assessed IV line sites with no e.o infection Assessment & Plan Remarks Sepsis Kleb pneumo Bacteremia: likely GI source. Urine Cx neg Left AKA stump with protruding bone but no infection PEG tube status. Acute resp failure Acute metabolic encephalopathy: baseline dementia and parkinsons. Sepsis contributing factor. 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 Cdiff negative. ESBL in sacral wound ? colonization as clinically responding to current ABX with no fevers. vitals ok not on pressors. Recs Continue Azactam IV Continue Flagyl will switch to oral. Repeat blood cultures x 2. Follow cultures Follow clinically Follow ID of GNR in sputum if it is an ESBL please call who is covering for me. Yarely Bowman MD Aug 04, 2017 10:16
--- NOTE | 2017-08-04 13:34 | HHI.GIFU ---
Subjective Remarks Sedated on vent. No distress. TF on hold. Liquid stool in rectal bag. (Ayaka Arzola) Objective Vitals I&O Vital Signs Date Time Temp Pulse Resp B/P (MAP) Pulse Ox O2 Delivery O2 Flow Rate FiO2 08/04/17 12:32 100 40 08/04/17 12:00 35 08/04/17 12:00 91 08/04/17 12:00 98.7 91 20 123/67 (85) 100 08/04/17 10:00 91 08/04/17 10:00 98.6 81 20 127/64 (85) 100 08/04/17 08:00 98.7 85 20 129/51 (77) 100 08/04/17 08:00 35 08/04/17 08:00 85 08/04/17 07:31 100 40 08/04/17 06:00 125 08/04/17 04:12 97 40 08/04/17 04:00 35 08/04/17 04:00 128 08/04/17 04:00 98.1 128 13 86/55 (65) 100 08/04/17 02:00 102 08/04/17 01:06 99 40 08/04/17 00:00 97.9 108 19 95/53 (67) 100 08/04/17 00:00 97.9 108 19 95/53 (67) 100 08/04/17 00:00 108 08/04/17 00:00 35 08/03/17 22:06 100 40 08/03/17 22:00 114 08/03/17 20:00 35 08/03/17 20:00 97.6 101 13 119/55 (76) 100 08/03/17 20:00 101 08/03/17 19:50 100 40 08/03/17 18:00 109 08/03/17 18:00 109 14 105/59 (74) 98 08/03/17 17:30 116 16 95/52 (66) 100 08/03/17 17:00 111 15 96/53 (67) 100 08/03/17 16:30 122 13 106/53 (70) 100 08/03/17 16:00 98.0 79 14 116/53 (74) 100 08/03/17 16:00 35 08/03/17 16:00 90 08/03/17 15:30 75 18 117/56 (76) 100 08/03/17 15:28 100 40 08/03/17 15:00 72 18 107/66 (80) 100 08/03/17 14:30 72 18 108/51 (70) 100 08/03/17 14:00 101 08/03/17 14:00 101 13 119/56 (77) 100 I/O 08/03/17 08/03/17 08/03/17 08/04/17 08/04/17 08/04/17 07:00 15:00 23:00 07:00 15:00 23:00 Intake Total 1238 ml 100 ml 1450 ml 450 ml Output Total 150 ml 200 ml 150 ml Balance 1088 ml 100 ml 1250 ml 300 ml Intake IV Total 677 ml 100 ml 1117 ml 200 ml Tube Feeding 361 ml 153 ml 0 ml Tube Irrigant 180 ml Other 200 ml 250 ml Output Urine Total 150 ml 200 ml 150 ml # Bowel Movements 0 0 0 Laboratory Laboratory Tests Test 08/04/17 05:01 08/04/17 05:39 Blood Gas Puncture Site RT BRACHIAL Blood Gas Patient Temperature 98.6 Blood Gas HCO3 20 Blood Gas Base Excess -4.3 Blood Gas Oxygen Saturation 91 Arterial Blood pH 7.35 Arterial Blood Partial Pressure CO2 38 Arterial Blood Partial Pressure O2 68 Arterial Blood Oxygen Content 11.7 Arterial Blood Carboxyhemoglobin 1.0 Arterial Blood Methemoglobin 1.0 Blood Gas Hemoglobin 9.0 Oxygen Delivery Device VENTILATOR Blood Gas Ventilator Setting AC14/440/+7 Blood Gas Inspired Oxygen 40 White Blood Count 14.5 Red Blood Count 3.00 Hemoglobin 8.7 Hematocrit 27.2 Mean Corpuscular Volume 90.8 Mean Corpuscular Hemoglobin 29.1 Mean Corpuscular Hemoglobin Concent 32.1 Red Cell Distribution Width 18.3 Platelet Count 325 Mean Platelet Volume 8.3 Neutrophils (%) (Auto) 91.0 Lymphocytes (%) (Auto) 4.9 Monocytes (%) (Auto) 3.3 Eosinophils (%) (Auto) 0.5 Basophils (%) (Auto) 0.3 Neutrophils # (Auto) 13.2 Lymphocytes # (Auto) 0.7 Monocytes # (Auto) 0.5 Eosinophils # (Auto) 0.1 Basophils # (Auto) 0.0 CBC Comment AUTO DIFF Differential Total Cells Counted 100 Neutrophils % (Manual) 84 Band Neutrophils % 11 Lymphocytes % 3 Monocytes % 2 Neutrophils # (Manual) 13.8 Differential Comment FINAL DIFF MANUAL Platelet Estimate NORMAL Platelet Morphology Comment NORMAL Blood Urea Nitrogen 46 Creatinine 1.07 Random Glucose 72 Total Protein 5.5 Calcium Level 7.4 Phosphorus Level 2.3 Magnesium Level 1.6 Sodium Level 144 Potassium Level 3.2 Chloride Level 113 Carbon Dioxide Level 22.1 Anion Gap 9 Estimat Glomerular Filtration Rate 65 Protein Corrected Calcium 8.3 Date/Time Source Procedure Growth Status 08/03/17 15:10 Blood Peripheral Aerobic Blood Culture - Preliminary NO GROWTH IN 1 DAY Resulted 08/03/17 15:10 Blood Peripheral Anaerobic Blood Culture - Preliminary NO GROWTH IN 1 DAY Resulted 08/02/17 14:00 Sputum Expectorated Sputum Gram Stain - Final Complete 08/02/17 14:00 Sputum Culture - Final Klebsiella Pneumoniae Escherichia Coli Esbl Positive Complete 08/02/17 09:50 Urine Catheterized Urine Legionella Antigen - Final PRESUMPTIVE NEGATIVE FOR LEGIONELLA P... Complete 08/02/17 09:50 Urine Catheterized Urine Streptococcus pneumoniae Antigen (M - Final PRESUMPTIVE NEGATIVE FOR STREPTOCOCCU... Complete 08/02/17 12:50 Wound Other Gram Stain - Final Resulted 08/02/17 12:50 Wound Culture - Preliminary Group D Enterococcus Escherichia Coli Esbl Positive Resulted Imaging Last Impressions Chest X-Ray 08/03/17 0600 Signed Impressions: Service Date/Time: July 04:07 - CONCLUSION: No significant change. Patchy diffuse airspace disease of both lungs. Arvind Márquez MD Abdomen/Pelvis CT 07/31/17 0000 Signed Impressions: Service Date/Time: Monday, July 31, 2017 22:53 - CONCLUSION: 1. CT suggests mild left-sided colitis in the proper clinical setting. No obstruction , perforation or abscess. 2. Thick waledl urinary bladder. Masters catheter present. 3. Right base infiltrate and small right, tiny left pleural effusions. 1. Arvind Márquez MD Physical Exam HEENT: Normocephalic; atraumatic; no jaundice. CHEST: OETT to vent. Diminished bases. CARDIAC: RRR ABDOMEN: Soft, nondistended, nontender; no hepatosplenomegaly; bowel sounds are present in all four quadrants. PEG EXTREMITIES: Left [employer]: Sedated on vent. (Ayaka Arzola) Assessment and Plan Plan ASSESSMENT: - Left sided colitis. Pt admitted for sepsis, HCAP, UTI. CT Scan of the abdomen and pelvis with IV contrast (07/31/17) CT suggests mild left-sided colitis in the proper clinical setting. No obstruction, perforation, or abscess, thick-walled urinary bladder, Masters catheter present, right base infiltrate and small right tiny left pleural effusions. Of note, he does have a history of C. Difficile back in October of 2016 and was treated with Flagyl and Vanco. CDiff negative. D/W radiology, unable to reconstruct CT scan. + loose stool. WBC 14.5. HH 8./ .2. Cont. Abx. - Dysphagia. Gets pureed diet with supplemental feedings via peg at rehab center. Now with pna. Will get ST to evaluate for swallow evaluation and also have auto phone installer make recommendations for diet with supplemental nighttime feedings and just TF feedings. Now intubated. TF via PEG - Elevated transaminases, likely shocked liver. CT as above. Hepatitis profile negative. REINIER, ASMA, AMA pending. Will recheck in am. - CARMELITA. 8.04/06.2 - Sepsis, HCAP, UTI. Azactam - Resp. Failure with pna. On vent. - Acute on chronic kidney dz. - Acute metabolic encephalopathy. lethargic, but answers questions/confused. ? baseline. - Dementia, Decubitus ulcer, HTN, BPH, CAD, PAD, Paroxysmal afib. per attending. PLAN: - Jevity 1.5 at 55cc/hr - Cont. Reglan - LFT in am - Await REINIER, ASMA, AMA - Supportive care - Further recommendations to follow based on results of above - Pt seen and examined by Dr. Soto and myself and this note is written on his behalf (Ayaka Arzola) Physician Comments Seen and examined with chari MEI in progress for elevated lfts. Endoscopies on hold for now. (Pina Soto MD) Ayaka Arzola Aug 04, 2017 13:34 Pina Soto MD Aug 04, 2017 14:54
--- NOTE | 2017-08-04 14:55 | HHI.HCPN ---
Reason for visit a. To assist with evaluation and management of symptoms including: shortness of breath, dysphagia, debility b. To assist medical decision maker(s) with: better understanding of current medical conditions; weighing benefits/burdens of medical treatment options; making medical treatment decisions. Subjective/Interval History Mr. Holguin is a 86 years old male with a past medical history of dementia, Parkinson's, PVD with left AKA, tobacco abuse, BPH, GERD, bed ridden with sacral decubitus ulcers, PEG and history of tracheostomy that was decannulated. Patient is on a pureed diet and gets supplemental bolus feeding via PEG. Apparently, patient vomited after receiving a bolus feed at the alf and thereafter developed signs of respiratory distress. O2 saturation was in the low 70`s on room air. Patient was sent from the alf to the emergency room due to tachypnea, elevated temperature and tachycardia. In ER, Tmax of 101.7 degrees F per rectum, heart rate 129. Patient was also hypotensive. Patient seen in ICU at 1130 hours in bed, eyes open and remains intubated on mechanical ventilation. Vent settings AC14/550/7/40%, +2 spontaneous respirations. O2 saturation high 90s-100%. Patient on a bicarb infusion at 75ml/ hr. Patient on continuous Fentanyl infusion at 100 mcg/hr. Patient is afebrile. HR 90`s. Laboratory workup revealing WBC 14.5, hemoglobin 8.7, hematocrit 27.2 , platelet count 325, sodium 144, potassium 3.2, BUN/creatinine 46/1.07, PCC 7.4 , total protein 5.5. Patient's tube feeding held yesterday due to high residual. PEG tube to drainage by gravity, currently clamped. Case discussed with Dr. Jamari Bowman. Telephone conversation with patient`s . Updated on medical status and notified her that Dr. Bowman would like to meet up with her at patient`s bedside on Monday08/07/17 between 1000 hrs to 1030 hrs. Patient`s stated that she will not be able to to come in at that time but is able to come into the hospital between 1300-1330hrs. Patient`s stated that Dr. Bowman can contact her by telephone. Notified patient`s that Dr. Bowman wanted to show her the wounds and discuss patient`s current medical condition. Patient`s stated that she has already seen the wounds and has talked to other physicians in regards to the wounds. . Family/friend interactions Telephone conversation with patient`s ant 1145hrs. . Advance Directives Living Will: Copy in medical record Health Care Surrogate: Copy in medical record Advance Directive Specifics Date completed: 08/05/2012 . Health Care Surrogate(s): Spouse- [facility]- Allyra Ramesh . Documented care wishes: Standard verbiage. Form scanned into EMR . Objective Vital Signs Date Time Temp Pulse Resp B/P (MAP) Pulse Ox O2 Delivery O2 Flow Rate FiO2 08/04/17 12:32 100 40 08/04/17 12:00 35 08/04/17 12:00 91 08/04/17 12:00 98.7 91 20 123/67 (85) 100 08/04/17 10:00 91 08/04/17 10:00 98.6 81 20 127/64 (85) 100 08/04/17 08:00 98.7 85 20 129/51 (77) 100 08/04/17 08:00 35 08/04/17 08:00 85 08/04/17 07:31 100 40 08/04/17 06:00 125 08/04/17 04:12 97 40 08/04/17 04:00 35 08/04/17 04:00 128 08/04/17 04:00 98.1 128 13 86/55 (65) 100 08/04/17 02:00 102 08/04/17 01:06 99 40 08/04/17 00:00 97.9 108 19 95/53 (67) 100 08/04/17 00:00 97.9 108 19 95/53 (67) 100 08/04/17 00:00 108 08/04/17 00:00 35 08/03/17 22:06 100 40 08/03/17 22:00 114 08/03/17 20:00 35 08/03/17 20:00 97.6 101 13 119/55 (76) 100 08/03/17 20:00 101 08/03/17 19:50 100 40 08/03/17 18:00 109 08/03/17 18:00 109 14 105/59 (74) 98 08/03/17 17:30 116 16 95/52 (66) 100 08/03/17 17:00 111 15 96/53 (67) 100 08/03/17 16:30 122 13 106/53 (70) 100 08/03/17 16:00 98.0 79 14 116/53 (74) 100 08/03/17 16:00 35 08/03/17 16:00 90 08/03/17 15:30 75 18 117/56 (76) 100 08/03/17 15:28 100 40 08/03/17 15:00 72 18 107/66 (80) 100 08/03/17 14:30 72 18 108/51 (70) 100 Intake & Output 08/04/17 08/04/17 07:00 19:00 Intake Total 582 ml Output Total 150 ml Balance 432 ml Intake IV Total 332 ml Tube Feeding 0 ml Other 250 ml Output Urine Total 150 ml # Bowel Movements 0 Physical Exam CONSTITUTIONAL/GENERAL: This is an elderly, ill looking patient, lethargic, sedated, intubated on mechanical ventilation TUBES/LINES/DRAINS: TLC, PIV, FC, ETT SKIN: No jaundice, rashes, or lesions. Ecchymoses on upper extremities. Stage II left trochanter ulcer and Stage III coccyx ulcer per EMR. Noted x2 intact dsgs to right foot and wound to right inner ankle open to a and left stump. Skin temperature appropriate. Not diaphoretic. HEAD: Atraumatic. Normocephalic. EYES: Pupils equal and round and reactive. Extraocular motions intact. No scleral icterus. No injection or drainage. Fundi not examined. ENT: Hearing grossly normal. Nose without bleeding or purulent drainage. Moist oral mucosa. ETT NECK: Trachea midline. Supple, nontender. CARDIOVASCULAR: HR low 90s-irregular. No murmurs, gallops, or rubs. No JVD. Peripheral pulses symmetric-L AKA. RESPIRATORY/CHEST: Symmetric . Lungs clear to auscultation. Diminished breath sounds equal bilaterally. Intubated on mechanical ventilation GASTROINTESTINAL: Abdomen soft, non-tender, nondistended. No palpable masses. Bowel sounds present. PEG tube currently clamped GENITOURINARY: Without palpable bladder distension. Masters catheter in place. MUSCULOSKELETAL: Extremities without clubbing, cyanosis, or edema. No mottling or clubbing. L AKA. Contracture to RLE. NEUROLOGICAL: Awake, lethargic, sedated, intubated on mechanical ventilation. PSYCHIATRIC: Calm. Intubated on mechanical ventilation. . Diagnostic Tests Laboratory Laboratory Tests Test 08/02/17 05:13 08/02/17 05:20 08/02/17 07:30 08/02/17 11:52 Blood Gas Puncture Site RT RADIAL LT RADIAL Blood Gas Patient Temperature 98.6 98.6 Blood Gas HCO3 19 mmol/L (22-26) 19 mmol/L (22-26) Blood Gas Base Excess -5.9 mmol/L (-2-2) -7.4 mmol/L (-2-2) Blood Gas Oxygen Saturation 82 % (90-100) 95 % (90-100) Arterial Blood pH 7.33 (7.380-7.420) 7.22 (7.380-7.420) Arterial Blood Partial Pressure CO2 38 mmHg (38-42) 48 mmHg (38-42) Arterial Blood Partial Pressure O2 53 mmHg (61-120) 98 mmHg (61-120) Arterial Blood Oxygen Content 11.1 Vol % (12.0-20.0) 13.8 Vol % (12.0-20.0) Arterial Blood Carboxyhemoglobin 0.9 % (0-4) 0.6 % (0-4) Arterial Blood Methemoglobin 1.0 % (0-2) 1.1 % (0-2) Blood Gas Hemoglobin 9.6 G/DL (12.0-16.0) 10.3 G/DL (12.0-16.0) Oxygen Delivery Device Venti Mask NONREBREATHER Blood Gas Liter Flow 6 L/M 15 L/M Blood Gas Inspired Oxygen 40 % White Blood Count 14.7 TH/MM3 (4.0-11.0) Red Blood Count 3.10 MIL/MM3 (4.50-5.90) Hemoglobin 9.0 GM/DL (13.0-17.0) Hematocrit 28.3 % (39.0-51.0) Mean Corpuscular Volume 91.1 FL (80.0-100.0) Mean Corpuscular Hemoglobin 29.0 PG (27.0-34.0) Mean Corpuscular Hemoglobin Concent 31.9 % (32.0-36.0) Red Cell Distribution Width 17.9 % (11.6-17.2) Platelet Count 348 TH/MM3 (150-450) Mean Platelet Volume 7.8 FL (7.0-11.0) Neutrophils (%) (Auto) 93.8 % (16.0-70.0) Lymphocytes (%) (Auto) 3.3 % (9.0-44.0) Monocytes (%) (Auto) 2.6 % (0.0-8.0) Eosinophils (%) (Auto) 0.1 % (0.0-4.0) Basophils (%) (Auto) 0.2 % (0.0-2.0) Neutrophils # (Auto) 13.8 TH/MM3 (1.8-7.7) Lymphocytes # (Auto) 0.5 TH/MM3 (1.0-4.8) Monocytes # (Auto) 0.4 TH/MM3 (0-0.9) Eosinophils # (Auto) 0.0 TH/MM3 (0-0.4) Basophils # (Auto) 0.0 TH/MM3 (0-0.2) CBC Comment AUTO DIFF Differential Total Cells Counted 100 Neutrophils % (Manual) 28 % (16-70) Band Neutrophils % 47 % (0-6) Lymphocytes % 4 % (9-44) Monocytes % 2 % (0-8) Neutrophils # (Manual) 13.8 TH/MM3 (1.8-7.7) Metamyelocytes 19 % (0-1) Differential Comment FINAL DIFF MANUAL Dohle Bodies PRESENT (NONE SEEN) Platelet Estimate NORMAL (NORMAL) Platelet Morphology Comment NORMAL (NORMAL) Lactic Acid Level 2.6 mmol/L (0.4-2.0) Blood Urea Nitrogen 31 MG/DL (7-18) Creatinine 0.82 MG/DL (0.60-1.30) Random Glucose 79 MG/DL (74-106) Calcium Level 7.6 MG/DL (8.5-10.1) Sodium Level 144 MEQ/L (136-145) Potassium Level 3.1 MEQ/L (3.5-5.1) Chloride Level 112 MEQ/L (98-107) Carbon Dioxide Level 20.0 MEQ/L (21.0-32.0) Anion Gap 12 MEQ/L (5-15) Estimat Glomerular Filtration Rate 89 ML/MIN (>89) Phosphorus Level 2.3 MG/DL (2.5-4.9) Test 08/02/17 13:42 08/02/17 14:00 08/02/17 17:45 08/03/17 04:00 Blood Gas Puncture Site RT BRACHIAL Blood Gas Patient Temperature 98.6 Blood Gas HCO3 18 mmol/L (22-26) Blood Gas Base Excess -8.5 mmol/L (-2-2) Blood Gas Oxygen Saturation 98 % (90-100) Arterial Blood pH 7.22 (7.380-7.420) Arterial Blood Partial Pressure CO2 45 mmHg (38-42) Arterial Blood Partial Pressure O2 237 mmHg (61-120) Arterial Blood Oxygen Content 15.8 Vol % (12.0-20.0) Arterial Blood Carboxyhemoglobin 0.4 % (0-4) Arterial Blood Methemoglobin 0.9 % (0-2) Blood Gas Hemoglobin 11.1 G/DL (12.0-16.0) Oxygen Delivery Device VENTILATOR Blood Gas Ventilator Setting AC/14/550/PEEP 7 Blood Gas Inspired Oxygen 100 % Total Bilirubin 0.3 MG/DL (0.2-1.0) 0.3 MG/DL (0.2-1.0) Direct Bilirubin 0.2 MG/DL (0.0-0.2) Indirect Bilirubin 0.1 MG/DL (0.0-0.8) Aspartate Amino Transf (AST/SGOT) 872 U/L (15-37) 522 U/L (15-37) Alanine Aminotransferase (ALT/SGPT) 569 U/L (12-78) 470 U/L (12-78) Alkaline Phosphatase 86 U/L (45-117) 85 U/L (45-117) Total Protein 5.9 GM/DL (6.4-8.2) 5.4 GM/DL (6.4-8.2) Albumin 1.7 GM/DL (3.4-5.0) 1.5 GM/DL (3.4-5.0) Anti-Smooth Muscle Antibody Negative (Negative) Hepatitis A IgM Antibody NEGATIVE (NEGATIVE) Hepatitis B Surface Antigen NEGATIVE (NEGATIVE) Hepatitis B Core IgM Antibody NEGATIVE (NEGATIVE) Hepatitis C Antibody NEGATIVE (NEGATIVE) Potassium Level 4.5 MEQ/L (3.5-5.1) 4.2 MEQ/L (3.5-5.1) White Blood Count 14.7 TH/MM3 (4.0-11.0) Red Blood Count 2.93 MIL/MM3 (4.50-5.90) Hemoglobin 8.6 GM/DL (13.0-17.0) Hematocrit 27.0 % (39.0-51.0) Mean Corpuscular Volume 92.0 FL (80.0-100.0) Mean Corpuscular Hemoglobin 29.3 PG (27.0-34.0) Mean Corpuscular Hemoglobin Concent 31.8 % (32.0-36.0) Red Cell Distribution Width 18.1 % (11.6-17.2) Platelet Count 338 TH/MM3 (150-450) Mean Platelet Volume 8.3 FL (7.0-11.0) Neutrophils (%) (Auto) 91.3 % (16.0-70.0) Lymphocytes (%) (Auto) 4.6 % (9.0-44.0) Monocytes (%) (Auto) 2.2 % (0.0-8.0) Eosinophils (%) (Auto) 1.6 % (0.0-4.0) Basophils (%) (Auto) 0.3 % (0.0-2.0) Neutrophils # (Auto) 13.4 TH/MM3 (1.8-7.7) Lymphocytes # (Auto) 0.7 TH/MM3 (1.0-4.8) Monocytes # (Auto) 0.3 TH/MM3 (0-0.9) Eosinophils # (Auto) 0.2 TH/MM3 (0-0.4) Basophils # (Auto) 0.0 TH/MM3 (0-0.2) CBC Comment AUTO DIFF Differential Total Cells Counted 100 Neutrophils % (Manual) 88 % (16-70) Band Neutrophils % 10 % (0-6) Monocytes % 1 % (0-8) Neutrophils # (Manual) 14.6 TH/MM3 (1.8-7.7) Metamyelocytes 1 % (0-1) Differential Comment FINAL DIFF MANUAL Platelet Estimate NORMAL (NORMAL) Platelet Morphology Comment NORMAL (NORMAL) Blood Urea Nitrogen 41 MG/DL (7-18) Creatinine 1.04 MG/DL (0.60-1.30) Random Glucose 78 MG/DL (74-106) Calcium Level 7.8 MG/DL (8.5-10.1) Phosphorus Level 1.5 MG/DL (2.5-4.9) Magnesium Level 1.7 MG/DL (1.5-2.5) Sodium Level 143 MEQ/L (136-145) Chloride Level 112 MEQ/L (98-107) Carbon Dioxide Level 17.7 MEQ/L (21.0-32.0) Anion Gap 13 MEQ/L (5-15) Estimat Glomerular Filtration Rate 67 ML/MIN (>89) Test 08/03/17 12:50 08/04/17 05:01 08/04/17 05:39 Blood Gas Puncture Site RT RADIAL RT BRACHIAL Blood Gas Patient Temperature 98.6 98.6 Blood Gas HCO3 19 mmol/L (22-26) 20 mmol/L (22-26) Blood Gas Base Excess -6.2 mmol/L (-2-2) -4.3 mmol/L (-2-2) Blood Gas Oxygen Saturation 90 % (90-100) 91 % (90-100) Arterial Blood pH 7.32 (7.380-7.420) 7.35 (7.380-7.420) Arterial Blood Partial Pressure CO2 37 mmHg (38-42) 38 mmHg (38-42) Arterial Blood Partial Pressure O2 64 mmHg (61-120) 68 mmHg (61-120) Arterial Blood Oxygen Content 11.1 Vol % (12.0-20.0) 11.7 Vol % (12.0-20.0) Arterial Blood Carboxyhemoglobin 1.0 % (0-4) 1.0 % (0-4) Arterial Blood Methemoglobin 1.1 % (0-2) 1.0 % (0-2) Blood Gas Hemoglobin 8.7 G/DL (12.0-16.0) 9.0 G/DL (12.0-16.0) Oxygen Delivery Device VENTILATOR VENTILATOR Blood Gas Ventilator Setting 550/14/7PEEP AC14/440/+7 Blood Gas Inspired Oxygen 35 % 40 % White Blood Count 14.5 TH/MM3 (4.0-11.0) Red Blood Count 3.00 MIL/MM3 (4.50-5.90) Hemoglobin 8.7 GM/DL (13.0-17.0) Hematocrit 27.2 % (39.0-51.0) Mean Corpuscular Volume 90.8 FL (80.0-100.0) Mean Corpuscular Hemoglobin 29.1 PG (27.0-34.0) Mean Corpuscular Hemoglobin Concent 32.1 % (32.0-36.0) Red Cell Distribution Width 18.3 % (11.6-17.2) Platelet Count 325 TH/MM3 (150-450) Mean Platelet Volume 8.3 FL (7.0-11.0) Neutrophils (%) (Auto) 91.0 % (16.0-70.0) Lymphocytes (%) (Auto) 4.9 % (9.0-44.0) Monocytes (%) (Auto) 3.3 % (0.0-8.0) Eosinophils (%) (Auto) 0.5 % (0.0-4.0) Basophils (%) (Auto) 0.3 % (0.0-2.0) Neutrophils # (Auto) 13.2 TH/MM3 (1.8-7.7) Lymphocytes # (Auto) 0.7 TH/MM3 (1.0-4.8) Monocytes # (Auto) 0.5 TH/MM3 (0-0.9) Eosinophils # (Auto) 0.1 TH/MM3 (0-0.4) Basophils # (Auto) 0.0 TH/MM3 (0-0.2) CBC Comment AUTO DIFF Differential Total Cells Counted 100 Neutrophils % (Manual) 84 % (16-70) Band Neutrophils % 11 % (0-6) Lymphocytes % 3 % (9-44) Monocytes % 2 % (0-8) Neutrophils # (Manual) 13.8 TH/MM3 (1.8-7.7) Differential Comment FINAL DIFF MANUAL Platelet Estimate NORMAL (NORMAL) Platelet Morphology Comment NORMAL (NORMAL) Blood Urea Nitrogen 46 MG/DL (7-18) Creatinine 1.07 MG/DL (0.60-1.30) Random Glucose 72 MG/DL (74-106) Total Protein 5.5 GM/DL (6.4-8.2) Calcium Level 7.4 MG/DL (8.5-10.1) Phosphorus Level 2.3 MG/DL (2.5-4.9) Magnesium Level 1.6 MG/DL (1.5-2.5) Sodium Level 144 MEQ/L (136-145) Potassium Level 3.2 MEQ/L (3.5-5.1) Chloride Level 113 MEQ/L (98-107) Carbon Dioxide Level 22.1 MEQ/L (21.0-32.0) Anion Gap 9 MEQ/L (5-15) Estimat Glomerular Filtration Rate 65 ML/MIN (>89) Protein Corrected Calcium 8.3 MG/DL (8.5-10.1) Result Diagram: 08/04/17 0539 08/04/17 0539 Microbiology Microbiology Date/Time Source Procedure Growth Status 08/03/17 15:10 Blood Peripheral Aerobic Blood Culture - Preliminary NO GROWTH IN 1 DAY Resulted 08/03/17 15:10 Blood Peripheral Anaerobic Blood Culture - Preliminary NO GROWTH IN 1 DAY Resulted 08/03/17 15:10 Blood Peripheral Aerobic Blood Culture - Preliminary NO GROWTH IN 1 DAY Resulted 08/03/17 15:10 Blood Peripheral Anaerobic Blood Culture - Preliminary NO GROWTH IN 1 DAY Resulted 08/02/17 14:00 Blood Peripheral Aerobic Blood Culture - Final Bacillus Species Not Anthracis Resulted 08/02/17 14:00 Blood Peripheral Anaerobic Blood Culture - Preliminary NO GROWTH IN 2 DAYS Resulted 08/02/17 13:50 Blood Peripheral Aerobic Blood Culture - Final Bacillus Species Not Anthracis Resulted 08/02/17 13:50 Blood Peripheral Anaerobic Blood Culture - Preliminary NO GROWTH IN 2 DAYS Resulted 08/02/17 14:00 Sputum Expectorated Sputum Gram Stain - Final Complete 08/02/17 14:00 Sputum Culture - Final Klebsiella Pneumoniae Escherichia Coli Esbl Positive Complete 08/02/17 09:50 Urine Catheterized Urine Legionella Antigen - Final PRESUMPTIVE NEGATIVE FOR LEGIONELLA P... Complete 08/02/17 09:50 Urine Catheterized Urine Streptococcus pneumoniae Antigen (M - Final PRESUMPTIVE NEGATIVE FOR STREPTOCOCCU... Complete 08/02/17 12:50 Wound Other Gram Stain - Final Resulted 08/02/17 12:50 Wound Culture - Preliminary Group D Enterococcus Escherichia Coli Esbl Positive Resulted Imaging Last 48 hours Impressions Chest X-Ray 08/03/17 0600 Signed Impressions: Service Date/Time: July 04:07 - CONCLUSION: No significant change. Patchy diffuse airspace disease of both lungs. Arvind Márquez MD Procedures 08/01/2017- Central line placement -R Subclavian 08/02/2017- Intubation . Assessment and Plan Disease Oriented Problem List: (1) HCAP (healthcare-associated pneumonia) (2) [id number]-vm-[id number] kidney injury (3) UTI (urinary tract infection) (4) CKD (chronic kidney disease), stage III (5) Decubital ulcer (6) Alzheimer's dementia (7) HTN (hypertension) (8) CAD (coronary artery disease) Symptom Scale: (1) Shortness of breath Comment: Multifactorial. Presented with tachypnea, O2 saturation in the 70s. Chest x-ray showing RML, RLL pneumonia. . (2) Debility Comment: Patient is currently bedridden. . (3) Dysphagia Comment: Patient currently has a PEG tube, placed in October 2016. Patient was on pured diet and receives supplemental bolus feeds via PEG depending on his mental percentage. . Pertinent Non-Medical Issues Psychosocial:Patient was born and raised in [place], [place]. Patient has been twice and is currently to his second of 52 years. Patient has 3 adult children, 2 from his first marriage and 1 son from his current marriage. 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 Spiritual:- stated that they are spiritual and not episcopal. Legal: Patient has a signed HCS- copy scanned and a Living Will (As stated by -Will bring in Copy) Ethical issues impacting care: None at this time . Important Contacts Spouse- Latosha Ramesh Son- Saulo Garcia [phone] . Prognosis Mr. Holguin is a 86 years old male with a past medical history of dementia, subdural hematoma, Parkinson's, PVD with left AKA, tobacco abuse, BPH, GERD, bed ridden with sacral decubitus ulcers, PEG and history of tracheostomy that was decannulated. Patient was sent from the alf to the emergency room due to tachypnea, elevated temperature and tachycardia, vomiting. In ER, Tmax of 101.7 degrees F per rectum, heart rate 129. Patient was also hypotensive. Patient was found to have acute kidney injury, RML and RLL pneumonia, and urinary tract infection.Given ongoing multiple comorbidities and current problems, patient remains at high risk for further complications, deterioration and decline. . Code Status: Full Code Plan PLAN: Legal decision maker: Patient has a history of dementia and demonstrates inability to make his own medical decisions. Patient has a designated HCS who is his Ally Ramesh. Goals: 08/04/17 Aggressive. Patient is now intubated on mechanical ventilation. ID Dr. [email or web address] following. Telephone conversation with patient`s . Updated on medical status and notified her that Dr. Bowman would like to meet up with her at patient`s bedside on Monday08/07/17 between 1000 hrs to 1030 hrs. Patient`s stated that she will not be able to to come in at that time but is able to come into the hospital between 1300-1330hrs. Patient`s stated that Dr. Bowman can contact her by telephone. Notified patient`s that Dr. Bowman wanted to show her the wounds and discuss patient`s current medical condition. Patient`s stated that she has already seen the wounds and has talked to other physicians in regards to the wounds. CODE STATUS: Full Code SYMPTOMS: * Shortness of breath: Multifactorial. Presented with tachypnea, O2 saturation in the 70s on admission. Chest x-ray showing RML, RLL pneumonia. Patient was started on antibiotics. Patient's respiratory status declining, increased work of breathing. Chest x-ray today showing worsening bilateral airspace opacities. Patient is now on a nonrebreather with O2 saturation currently high 90s. Patient on Albuterol Sulfate 2.5 mg Q 2hrs prn. Patient on a bicarbonate continuos infusion- now 30ml/hr. * Dysphagia: Patient has PEG tube. Was receiving bolus feeds and pureed diet at SNF. May benefit from tire trimmer hand consult. Now has pneumonia. Currently NPO. Patient`s weight on Nov 01 2016=75.9kg , August 01, 2017=65kg. 08/01/17 Total protein 6.1 , albumin 1.9. * Debility: Progressive. Patient is currently bedridden, with dementia, Parkinson's, PVD with left AKA and sacral decubitus ulcers. Patient may not be able to effectively participate in physical therapy given ongoing comorbidities. Patient is at high risk for further deterioration. Patient`s weight on Nov 01 2016=75.9kg , August 01, 2017=65kg. Palliative care will continue to follow the patient during hospital course as condition evolves, to assist patient/decision-maker with understanding of their medical conditions, weighing benefits/burdens of treatment options, for clarification of goals of treatment. Additionally will assist with any symptoms of palliative concern. . Attestation To help prompt me to consider important information that might be impacting today's encounter and assessment, information from prior notes written by myself or my colleagues may have been "brought forward" into today's note. My signature on this note, however, is an attestation that I personally performed the exam, history, and/or decision-making noted today, and, unless otherwise indicated, the interactions with patient, family, and staff as well as the review of records all occurred today. I also attest that the listed assessment and stated plan reflect my best clinical judgment today based on the combination of historical information, prior notes, and today's exam/ interactions. When time spent is documented, it refers only to time spent today by the signer, or if indicated, combined time spent today by collaborating physician/nurse practitioner. . Juliano Lawrence Aug 04, 2017 14:55
[2017-08-04] MEDS: POTASSIUM CHLOR 40 MEQ PREMIX 100 ML IV PRN ×2 (15:23→18:08)
--- NOTE | 2017-08-04 19:14 | HHI.CCPN ---
Subjective Remarks/Hospital Course 86-year-old male with past medical history of dementia, Parkinson's, bedridden, sacral decubitus ulcers, PAD with left AKA, tobacco abuse, BPH, GERD , PEG, prior tracheostomy that has subsequently been decannulated who presents to [facility] emergency department with respiratory distress. He is on a pured diet and gets supplemental bolus feeds at mealtime depending on how much that he takes by mouth. Today he did not have very much appetite, did not eat much, received a bolus feed. He then had an episode of vomiting and subsequently had tachypnea. He desaturated into the 70s on room air. He was placed on supplemental oxygen. He had rigors and fever and therefore was brought to [facility] emergency Department was where she was found to be in septic shock with multiorgan dysfunction. He has right middle lobe and right lower lobe pneumonia and urinary tract infection. Temperature is 100.6. Blood pressure is 82/49 with a lactic acid of 8.1. He is in acute kidney injury with creatinine 1.35. He has not had any diarrhea. He denies abdominal pain but has voluntary guarding on exam. (History from him is almost non existent, this is based on verbal and nonverbal cues interpreted by his ) He received vancomycin and aztreonam in the emergency department. He has received 3 L normal saline bolus. Hospitalized at [place] in October 2016 with C. difficile and HCAP with respiratory failure. He was intubated and extubated several times and ultimately underwent tracheostomy 11/15/16 and PEG. He was recently hospitalized at [facility] 1-1/2 months ago related to infection of his sacral wound which has had multiple debridements. Reportedly has recently been on antibiotics for UTI. denies known ho MDRO. Subjective: 08/01: Tmax 99.1. Patient alert to name only, denies pain. O2 requirements decreased currently on Ventimask at 40%. Patient having multiple loose bowel movements, C. difficile PCR pending. 08/02: Afebrile. Patient noted to have increasing O2 requirements this a.m. , chest x-ray shows worsening opacities now with leukocytosis and bandemia. Patient noted to have gram-negative bacteremia. Patient currently on atrezonam and metronidazole. ID consulted appreciate recommendations. CDiff PCR noted to be negative. Today afternoon the patient was noted to go into atrial fibrillation with a heart rate in the 140s-160s was placed on a Cardizem infusion ,now rate is controlled will be transitioned to PO Cardizem. Metabolic acidosis slightly improved sodium bicarbonate drip decreased to 30 cc/hour. Plan for revision of left AKA stump this a.m. at the bedside with Dr. Connelly, under local anesthesia. 08/03: Afebrile. Patient was placed on tube feeds at 55 cc/an hour, did not tolerate, large residuals. Patient was placed on metoclopramide per GI, and tube feeds now placed on hold. The patient continues on fentanyl infusion baseline neurological status as previously noted. Decreasing oxygen requirements, currently on 35% FiO2. Blood cultures revealed variable gram- negative rods. Discussed with ID tentative plan for revision of AKA, per Dr. Bowman due to the recent results of gram-negative variable rods recommendation not to perform revision at this time. Planned to perform revision after negative blood cultures obtained and 2 or 3 days have elapsed. 08/04: Afebrile. No acute events overnight. The patient continues to have persistent leukocytosis. ID following. Objective Vital Signs Date Time Temp Pulse Resp B/P (MAP) Pulse Ox O2 Delivery O2 Flow Rate FiO2 08/04/17 18:00 87 08/04/17 16:36 100 40 08/04/17 16:00 98.4 20 111/52 (71) 08/03/17 07:00 Mechanical Ventilator 08/02/17 09:13 15.00 Intake and Output 08/04/17 08/04/17 08/05/17 08:00 16:00 00:00 Intake Total 350 ml 100 ml 317 ml Output Total 150 ml 850 ml Balance 200 ml 100 ml -533 ml Result Diagram: 08/04/17 0539 08/04/17 0539 Other Results Microbiology Date/Time Source Procedure Growth Status 08/02/17 14:00 Sputum Expectorated Sputum Gram Stain - Final Complete 08/02/17 14:00 Sputum Culture - Final Klebsiella Pneumoniae Escherichia Coli Esbl Positive Complete 08/02/17 09:50 Urine Catheterized Urine Legionella Antigen - Final PRESUMPTIVE NEGATIVE FOR LEGIONELLA P... Complete 08/02/17 09:50 Urine Catheterized Urine Streptococcus pneumoniae Antigen (M - Final PRESUMPTIVE NEGATIVE FOR STREPTOCOCCU... Complete 08/02/17 12:50 Wound Other Gram Stain - Final Complete 08/02/17 12:50 Wound Culture - Final Enterococcus Faecium Vre Escherichia Coli Esbl Positive Complete Laboratory Tests Test 08/04/17 05:01 Blood Gas Puncture Site RT BRACHIAL Blood Gas Patient Temperature 98.6 Blood Gas HCO3 20 mmol/L (22-26) Blood Gas Base Excess -4.3 mmol/L (-2-2) Blood Gas Oxygen Saturation 91 % (90-100) Arterial Blood pH 7.35 (7.380-7.420) Arterial Blood Partial Pressure CO2 38 mmHg (38-42) Arterial Blood Partial Pressure O2 68 mmHg (61-120) Arterial Blood Oxygen Content 11.7 Vol % (12.0-20.0) Arterial Blood Carboxyhemoglobin 1.0 % (0-4) Arterial Blood Methemoglobin 1.0 % (0-2) Blood Gas Hemoglobin 9.0 G/DL (12.0-16.0) Oxygen Delivery Device VENTILATOR Blood Gas Ventilator Setting AC14/440/+7 Blood Gas Inspired Oxygen 40 % Imaging Last Impressions Chest X-Ray 07/31/171731 Signed Impressions: Service Date/Time: Monday, July 31, 2017 19:04 - CONCLUSION: Possible right midlung infiltrate. Recommend followup films. Aneudy Wong MD Abdomen/Pelvis CT 07/31/17 0000 Signed Impressions: Service Date/Time: Monday, July 31, 2017 22:53 - CONCLUSION: 1. CT suggests mild left-sided colitis in the proper clinical setting. No obstruction , perforation or abscess. 2. Thick waledl urinary bladder. Masters catheter present. 3. Right base infiltrate and small right, tiny left pleural effusions. 1. Arvind Márquez MD Last 24 hours Impressions Chest X-Ray 07/31/171731 Signed Impressions: Service Date/Time: Monday, July 31, 2017 19:04 - CONCLUSION: Possible right midlung infiltrate. Recommend followup films. Aneudy Wong MD Objective Remarks GENERAL: Elderly thin frail chronically ill appearing male with contracture intubated and lightly sedated on fentanyl infusion SKIN: Warm and dry. Multiple wound openings to include sacral, bilateral greater trochanters and bone protrusion left AKA HEAD: Atraumatic. Normocephalic. EYES: Right pupil 1 mm and sluggishly reactive. Left pupil is about 3 mm, aniscoria, appears nonreactive. No scleral icterus. No injection or drainage. ENT: No nasal bleeding or discharge. Mucous membranes dry. Intubated NECK: Trachea midline. No JVD. Right carotid endarterectomy scar well-healed. CARDIOVASCULAR: Irregular with sinus rhythm on the monitor with PACs and multifocal PVCs. Heart sounds are very distant. No murmur appreciated RESPIRATORY: Bilateral chest excursion. No accessory muscle use. Coarse rhonchi bilateral lung fonseca. No wheeze or Rales. GASTROINTESTINAL: Abdomen scaphoid, PEG tube in place with site benign appearing , no drainage. He has voluntary guarding with palpation of right abdomen, no apparent rebound. Bowel sounds hypoactive. : Masters rich urine MUSCULOSKELETAL: Extremities without clubbing, cyanosis. He is s/p L AKA. There is ulceration of stump with small spike of bone protruding through, no exudate. There is about 6x7 cm sacral decubitus wound stage IV s/p debridement with no fluctuance or surrounding cellulitis.There is ~2 cm ulcerations bilateral trochanters without drainage. NEUROLOGICAL: RASS-2, currently sedated on fentanyl infusion .Upper extremities with increased flexor tone bilaterally, moves spontaneously. R lower extremity contracted. Date of Insertion: Aug 01, 2017 Date of Insertion: Aug 01, 2017 Line: Central Venous Catheter Side: Right Location: Subclavian A/P Problem List: (1) History of lucien hole surgery ICD Code: Z98.89 - History of lucien hole surgery Status: Chronic (2) Septic shock ICD Code: A41.9 - Sepsis, unspecified organism; R65.21 - Severe sepsis with septic shock Status: Acute (3) UTI (urinary tract infection) ICD Code: N39.0 - UTI (urinary tract infection) Status: Acute (4) Dementia ICD Code: F03.90 - Dementia Status: Chronic (5) HTN (hypertension) ICD Code: I10 - HTN (hypertension) Status: Chronic (6) CKD (chronic kidney disease), stage III ICD Code: N18.3 - CKD (chronic kidney disease), stage III Status: Chronic (7) HCAP (healthcare-associated pneumonia) ICD Code: J18.9 - Pneumonia, unspecified organism Status: Acute (8) Decubital ulcer ICD Code: L89.90 - Pressure ulcer of unspecified site, unspecified stage Status: Chronic (9) S/P AKA (above knee amputation) unilateral ICD Code: Z89.619 - Acquired absence of unspecified leg above knee (10) History of BPH ICD Code: Z87.438 - History of BPH Status: Chronic (11) CAD (coronary artery disease) ICD Code: I25.10 - Atherosclerotic heart disease of [place] coronary artery without angina pectoris Status: Chronic (12) Bed confinement status ICD Code: Z74.01 - Bed confinement status Status: Chronic (13) Dysphagia ICD Code: R13.10 - Dysphagia, unspecified Status: Chronic (14) Leukocytosis ICD Code: D72.829 - Leukocytosis Status: Acute Assessment and Plan NEURO: Acute toxic metabolic encephalopathy overlying Dementia Parkinson's disease Bedridden with contractures H/O R subdural with lucien hole and SDH evacuation 04/[address] Sloan H/O R CEA Continue donepezil 10 mg by mouth daily at bedtime Hold sedative/non essential medications but he is chronically on melatonin 5 mg daily at bedtime, Xanax 0.25 mg daily, Zoloft 25 twice a day Fentanyl infusion for ventilator synchrony, maintain RASS -2 RESP: Respiratory distress with acute hypoxemia Healthcare associated pneumonia versus aspiration History of tobacco abuse Small right pleural effusion Prior tracheostomy s/p decannulation DuoNeb every 6 hours scheduled. Albuterol every 2 hours as needed. 08/01 Chest x-ray demonstrates worsening , now diffuse bilateral opacities. Antibiotics as per below 08/02 patient emergently intubated 8.0 at 23 cm at the lip Follow up sputum culture CV: Coronary artery disease with prior stents Essential hypertension Paroxysmal atrial fibrillation Septic shock Lactic acidemia PAD Hold lisinopril due to hypotension and NAYE He is not chronically anticoagulated for A. fib 07/31 A. fib RVR placed on Cardizem infusion, with 5 mg/hour we'll transition to 80 mg every 6 hours, normotensive Received 3 L normal saline bolus in the ED 07/31. Resolving metabolic acidosis with bicarbonate of 20 and base deficit of 5.9 Continue 0.45 NaCl with 75 mEq of bicarbonate 75 mL per hour GI: Dysphagia Colitis Diverticulosis Loose stools On pured diet at baseline. Nothing by mouth. 08/01 C. difficile PCR-negative Has PEG for supplemental feeds. Management per GI 08/02 tube feeds initiated noted high residuals discontinued, Reglan initiated TID Lipase negative. Obtained CT abdomen and pelvis which demonstrated colitis descending colon. Mesenteric ischemia is a consideration. Will treat supportively with fluid resuscitation and abx. Overall prognosis poor and does not appear to be an operative candidate. FEN/RENAL: Acute kidney injury BPH s/p TURP No hydronephrosis noted on CT scan. Fluid resuscitation as per above. Insert Masters which is necessary to monitor urine output as marker of organ perfusion in the setting of septic shock and renal failure, and multiple open wounds ID: HCAP versus aspiration UTI/cystitis - u/a with many yeast. Followup culture. Diflucan 100 mg IV daily , adjusted for renal function. Sacral and hip decubitus ulcers present on admission Influenza negative Check urine legionella and pneumococcal antigen Follow-up urine and blood cultures. Obtain sputum culture Vancomycin pharmacy dosing. Calculated creatinine clearance is 37. Aztreonam 2 g IV every 8 hours and adjust if creatinine clearance drops below 30. (PCN allergy) Flagyl 500 mg IV every 8 hours for anaerobic coverage. 08/01 C diff PCR-negative Discussed with Dr. Bowman -antibiotic management per ID. Recommendations not to perform AKA stump revision at this time secondary to new results of blood culture gram-negative variable rods. MSK: S/P L AKA - 07/31 stump with poor healing bone protrusion. states she has been told before he was not an operative candidate for revision of the wound, however perhaps could rongeur at bedside? Per ID recommendations postpone AKA revision secondary to the culture results of variable gram-negative rods Specialty Bed 08/01-discussed with Dr. Connelly yesterday plan for revision AKA under local anesthesia at bedside HEME: Chronic iron deficiency anemia Reactive thrombocytosis Continue Ferrous sulfate 325 mill grams by mouth 3 times a day ENDO: Hyperglycemia associated with tube feed administration Monitor bedside glucose every 6 hours and initiate low-dose insulin sliding scale as indicated. PROPH: Heparin subcutaneous for DVT prophylaxis. Famotidine 20mg BID ACCESS: Has peripheral IV. central line placement 07/31 right subclavian Patient is critically ill with septic shock and multiorgan dysfunction who is at risk for further decompensation or . states he has a living will and that she is his healthcare surrogate. She states that he had stated that he wanted to be FULL CODE. She states she would place consideration to change of code status if his condition worsened but she states she feels he has "rallied" since when he was initially admitted and that he appears to still want to fight. 08/01-obtain palliative care consulted- requests continued aggressive measures Discussed with BOX PRINTER at bedside and Dr. Bowman (ID) This patient remains critically ill with one or more organ systems which are or may become a threat to life. I have spent in excess of 30 minutes discontinuously in the care and management of this patient. This time is exclusive of procedures, and includes, but is not limited to, evaluation of the patient, review of the medical record, discussions with family, consultants, nursing staff, or respiratory therapy, and documentation in the medical record. Physician Griselda Bateman Problem Qualifiers (1) UTI (urinary tract infection): Qualified Codes: N39.0 - Urinary tract infection, site not specified; R31.9 - Hematuria, unspecified (2) Dementia: (3) HTN (hypertension): Qualified Codes: I10 - Essential (primary) hypertension Griselda Bateman MD Aug 04, 2017 19:14
[2017-08-04] MEDS: DONEPEZIL HCL 5 MG TAB PO SCH (21:00)
--- NOTE | 2017-08-04 21:11 | PD.ORT.PN ---
Subjective Subjective Remarks intubated. Objective Vitals Vital Signs Date Time Temp Pulse Resp B/P (MAP) Pulse Ox O2 Delivery O2 Flow Rate FiO2 08/04/17 19:15 100 40 08/04/17 18:00 87 08/04/17 16:36 100 40 08/04/17 16:00 98.4 91 20 111/52 (71) 100 08/04/17 16:00 35 08/04/17 16:00 90 08/04/17 14:00 87 08/04/17 12:32 100 40 08/04/17 12:00 35 08/04/17 12:00 91 08/04/17 12:00 98.7 91 20 123/67 (85) 100 08/04/17 10:00 91 08/04/17 10:00 98.6 81 20 127/64 (85) 100 08/04/17 08:00 98.7 85 20 129/51 (77) 100 08/04/17 08:00 35 08/04/17 08:00 85 08/04/17 07:31 100 40 08/04/17 06:00 125 08/04/17 04:12 97 40 08/04/17 04:00 35 08/04/17 04:00 128 08/04/17 04:00 98.1 128 13 86/55 (65) 100 08/04/17 02:00 102 08/04/17 01:06 99 40 08/04/17 00:00 97.9 108 19 95/53 (67) 100 08/04/17 00:00 97.9 108 19 95/53 (67) 100 08/04/17 00:00 108 08/04/17 00:00 35 08/03/17 22:06 100 40 08/03/17 22:00 114 I/O 08/03/17 08/03/17 08/03/17 08/04/17 08/04/17 08/04/17 07:00 15:00 23:00 07:00 15:00 23:00 Intake Total 1238 ml 100 ml 1450 ml 450 ml 100 ml 417 ml Output Total 150 ml 200 ml 150 ml 850 ml Balance 1088 ml 100 ml 1250 ml 300 ml 100 ml -433 ml Intake IV Total 677 ml 100 ml 1117 ml 200 ml 100 ml 100 ml Tube Feeding 361 ml 153 ml 0 ml 17 ml Tube Irrigant 180 ml Other 200 ml 250 ml 300 ml Output Urine Total 150 ml 200 ml 150 ml 450 ml Gastric Drainage Total 400 ml # Bowel Movements 0 0 0 Result Diagram: 08/04/1753808/04/17538 Objective Remarks intubated LLE: Left AKA stump with protruding small piece of cortical bone. Significant muscular atrophy. Wound otherwise mostly healed. No drainage. No signs of infection. Assessment & Plan Assessment and Plan 86-year-old male with a significantly complicated past medical history including dementia, Parkinson's, bedridden, sacral decubitus ulcers, PAD with left AKA, tobacco abuse, BPH, GERD, presented with septic shock and respiratory distress. He is status post left above knee amputation. bed side I&D performed. No complications. Daily dressing changes until wound closes. please call with further questions. Joe Ellis Jr., MD Aug 04, 2017 21:11
[2017-08-04] MEDS: SODIUM BICARBONATE 8.4% INJ 75 MEQ in SODIUM CHLOR 0.45% 1000 ML INJ 1,000 ML IV SCH (21:48)
[2017-08-05] VITALS (80 sets, daily range): BP systolic 77–113; BP diastolic 44–63; PULSE 80–147; RESP 11–17; TEMP 99.7; O2SAT 97–100
[2017-08-05] MEDS: INSULIN ASPART SUPPLEMENTAL SCALE SQ SCH ×3 (02:19→15:15)
[2017-08-05] MEDS: RESP: ALBUTEROL 2.5 MG/IPRATROPIUM 0.5 MG NEB (SCH) NEB (03:34)
[2017-08-05] MEDS: CHLORHEXIDINE GLUCONATE 2 % 1 PACK (2 CLOTHS) TOP SCH (03:40)
[2017-08-05] MEDS: AZTREONAM INJ 2,000 MG in SODIUM CHLORIDE 0.9% INJ 100 ML IV SCH ×2 (03:42→12:43)
--- NOTE | 2017-08-05 04:17 | RADRPT ---
EXAM DATE/TIME: 08/05/2017 02:53 [place] COMPARISON: CHEST SINGLE AP, August 03, 2017, 4:07. INDICATIONS : Shortness of breath, respiratory failure. MEDICAL HISTORY : Hypertension. SURGICAL HISTORY : Appendectomy. Prostatectomy. Carotid endarterectomy. ENCOUNTER: Subsequent ACUITY: 4 - 6 days PAIN SCORE: Non-responsive. LOCATION: Bilateral chest FINDINGS: A single AP semierect view of the chest was obtained and again demonstrates the right subclavian cent ral venous line in place. The patient remains intubated with the endotracheal tube tip approximately 3 cm above the veda. Hazy infiltrate is again noted in both lungs right greater than left. The hear t size remains at the upper limits of normal. There are atherosclerotic changes in the aorta. CONCLUSION: No significant change. Hazy infiltrate remains in both lungs right greater than left. Onel Romero MD on August 05, 2017 at 4:14 Board Certified Radiologist. This report was verified electronically.
[2017-08-05 04:50] LABS: AUTOMATED NEUTROPHIL # 10.9 TH/MM3 (1.8-7.7); BASOPHIL % 0.4 % (0.0-2.0); EOSINOPHIL # 0.2 TH/MM3 (0-0.4); EOSINOPHIL % 1.8 % (0.0-4.0); HEMATOCRIT 25.2 % (39.0-51.0); LYMPHOCYTE # 0.9 TH/MM3 (1.0-4.8); MEAN CELL VOLUME 90.6 FL (80.0-100.0); MEAN CORPUSCULAR HEMOGLOBIN 29.1 PG (27.0-34.0); MEAN CORPUSCULAR HGB CONC 32.1 % (32.0-36.0); MONO % 5.6 % (0.0-8.0); NEUT % 85.2 % (16.0-70.0); PLATELET COUNT 281 TH/MM3 (150-450); RED BLOOD COUNT 2.78 MIL/MM3 (4.50-5.90); RED CELL DISTRIBUTION WIDTH 18.4 % (11.6-17.2); WHITE BLOOD COUNT 12.7 TH/MM3 (4.0-11.0)
[2017-08-05] MEDS: METOCLOPRAMIDE HCL 10 MG/2 ML VIAL IV PUSH SCH ×3 (04:55→23:14)
[2017-08-05 05:04] LABS: HEMO FLAGS AUTO DIFF
[2017-08-05 05:21] LABS: BICARBONATE 23.3 MEQ/L (21.0-32.0); INDIRECT BILIRUBIN 0.2 MG/DL (0.0-0.8); MAGNESIUM 1.6 MG/DL (1.5-2.5); POTASSIUM 4.4 MEQ/L (3.5-5.1); TOTAL BILIRUBIN ADULT 0.3 MG/DL (0.2-1.0)
[2017-08-05 05:29] LABS: CALCIUM-PROTEIN CORRECTED 8.5 MG/DL (8.5-10.1)
[2017-08-05] MEDS: DEXTROSE 50% IN WATER 50 ML VIAL(D50) IV PUSH PRN (05:42)
[2017-08-05 06:26] LABS: BANDS 5 % (0-6); METAMYELOCYTES 1 % (0-1); NEUTROPHIL # MANUAL DIFF 11.9 TH/MM3 (1.8-7.7); POLYS (SEG NEUTROPHILS) 88 % (16-70); WBC DIFF SAMPLE 100
[2017-08-05 06:28] LABS: PLATELET ESTIMATE SMEAR NORMAL (NORMAL); PLATELET MORPHOLOGY NORMAL (NORMAL); SCAN/DIFF FINAL DIFF MANUAL
--- NOTE | 2017-08-05 07:29 | PD.ORT.PN ---
Subjective Subjective Remarks Intubated, no significant signs of discomfort. Objective Vitals Vital Signs Date Time Temp Pulse Resp B/P (MAP) Pulse Ox O2 Delivery O2 Flow Rate FiO2 08/05/17 04:04 100 40 08/05/17 04:00 35 08/05/17 04:00 99.5 101 12 109/50 (69) 100 08/05/17 01:05 100 40 08/05/17 00:03 113/60 (77) 08/05/17 00:00 99.1 90 13 83/44 (57) 100 08/05/17 00:00 35 08/04/17 22:07 100 40 08/04/17 20:00 35 08/04/17 20:00 98.8 99 13 104/66 (79) 100 08/04/17 19:15 100 40 08/04/17 18:00 87 08/04/17 16:36 100 40 08/04/17 16:00 98.4 91 20 111/52 (71) 100 08/04/17 16:00 35 08/04/17 16:00 90 08/04/17 14:00 87 08/04/17 12:32 100 40 08/04/17 12:00 35 08/04/17 12:00 91 08/04/17 12:00 98.7 91 20 123/67 (85) 100 08/04/17 10:00 91 08/04/17 10:00 98.6 81 20 127/64 (85) 100 08/04/17 08:00 98.7 85 20 129/51 (77) 100 08/04/17 08:00 35 08/04/17 08:00 85 08/04/17 07:31 100 40 I/O 08/04/17 08/04/17 08/04/17 08/05/17 08/05/17 08/05/17 06:59 14:59 22:59 06:59 14:59 22:59 Intake Total 450 ml 100 ml 1007 ml 657 ml Output Total 150 ml 850 ml 400 ml Balance 300 ml 100 ml 157 ml 257 ml Intake Oral 0 ml IV Total 200 ml 100 ml 690 ml 657 ml Tube Feeding 0 ml 17 ml Other 250 ml 300 ml Output Urine Total 150 ml 450 ml 375 ml Gastric Drainage Total 400 ml 25 ml # Bowel Movements 0 0 Result Diagram: 08/05/17 0330 08/05/17 0330 Imaging Last 24 hours Impressions Chest X-Ray 08/05/17 0600 Signed Impressions: Service Date/Time: Saturday, August 05, 2017 02:53 - CONCLUSION: No significant change. Hazy infiltrate remains in both lungs right greater than left. Onel Romero MD Objective Remarks intubated LLE: Left AKA stump with protruding small piece of cortical bone. Significant muscular atrophy. Wound otherwise mostly healed. No drainage. No signs of infection. Assessment & Plan Assessment and Plan 86-year-old male with a significantly complicated past medical history including dementia, Parkinson's, bedridden, sacral decubitus ulcers, PAD with left AKA, tobacco abuse, BPH, GERD, presented with septic shock and respiratory distress. He is status post left above knee amputation. bed side I&D performed. No complications. Daily dressing changes until wound closes. please call with further questions. Shahrzad Hart MD Aug 05, 2017 07:29
[2017-08-05] MEDS: SODIUM HYPOCHLORITE 0.125% 500 ML BTL TOPICAL SCH ×2 (09:00→23:16)
[2017-08-05] MEDS: ARTIFICIAL TEARS OPTH OINT 3.5 APPLIC/3.5 GM TUBO LEFT EYE SCH ×2 (09:00→21:00)
[2017-08-05] MEDS: SODIUM CHLORIDE 0.9% FLUSH 10 ML FLUSH IV FLUSH SCH (09:00)
[2017-08-05] MEDS: DOCUSATE SODIUM 50 MG/SENNA 8.6 MG TAB PO SCH (09:00)
[2017-08-05] MEDS: ZINC OXIDE 20% OINT 30 GM TUBE TOPICAL SCH ×2 (09:00→23:16)
[2017-08-05] MEDS: FAMOTIDINE 20 MG/2 ML VIAL IV PUSH SCH ×2 (09:00→23:15)
[2017-08-05] MEDS: ASCORBIC ACID 500 MG TAB PO SCH (09:00)
[2017-08-05] MEDS: LACTOBACILLUS ACIDOPHILUS 1 GM PACKET PEG SCH ×3 (09:00→18:00)
[2017-08-05] MEDS: SODIUM CHLORIDE 0.9% IRRIGATION SCH ×2 (09:00→21:00)
[2017-08-05] MEDS: SODIUM BICARBONATE 8.4% INJ 75 MEQ in SODIUM CHLOR 0.45% 1000 ML INJ 1,000 ML IV SCH (09:18)
[2017-08-05] MEDS: HEPARIN SODIUM - SQ 10,000 UNITS/ML VIAL SQ SCH ×2 (09:19→23:15)
[2017-08-05] MEDS: FERROUS SULFATE 325 MG (65 MG ELEMENTAL IRON) TAB PO SCH ×3 (09:19→18:50)
[2017-08-05] MEDS: DILTIAZEM HCL 30 MG TAB PO SCH ×2 (12:43→18:50)
[2017-08-05] MEDS ORDERED: MISCELLANEOUS PHARMACY INFORMATION XX PRN ×2 (15:00)
[2017-08-05] MEDS ORDERED: ASP: Path resistant to other antimicrobials, culture proven PRN (15:00)
--- NOTE | 2017-08-05 15:11 | HHI.IDPN ---
Note Infectious Disease Note ID COVERAGE. Notes reviewed. Mr. Ramesh is a 86 years old male with a past medical history of dementia, Parkinson's, PVD with left AKA, tobacco abuse, BPH, GERD, bed ridden with sacral decubitus ulcers, PEG and history of tracheostomy that was decannulated. Patient was [facility] the shelter to the emergency room due to tachypnea, elevated temperature and tachycardia. Blood culture has Bacillus species. Sputum culture has ESBL E. coli and Klebsiella. Low grade fevers Antibiotics Azactam IV Flagyl oral. Lines Line sites with no e.o infection Past Medical History reviewed Allergies: Coded Allergies: Fish Containing Products (Unverified Allergy, Severe, 04/25/17) levofloxacin (Unverified Allergy, Severe, 04/25/17) lorazepam (Unverified Allergy, Severe, 04/25/17) morphine (Unverified Allergy, Severe, 04/25/17) penicillin G (Unverified Allergy, Severe, 04/25/17) sulfamethoxazole (Unverified Allergy, Severe, hives, 04/25/17) trimethoprim (Unverified Allergy, Severe, hives, 04/25/17) acetaminophen (Verified Allergy, Mild, ITCHING, 07/31/17) hydrocortisone (Unverified Allergy, Unknown, UNKNOWN, 04/25/17) OBJECTIVE: Vital Signs Date Time Temp Pulse Resp B/P (MAP) Pulse Ox O2 Delivery O2 Flow Rate FiO2 08/05/17 13:25 99.9 110 11 102/51 (68) 100 08/05/17 13:25 110 08/05/17 13:20 115 08/05/17 13:20 99.9 115 12 95/55 (68) 100 08/05/17 13:15 99.9 115 13 99/46 (63) 100 08/05/17 13:15 115 08/05/17 13:10 115 08/05/17 13:10 99.9 115 13 101/51 (68) 100 08/05/17 13:08 100 45 08/05/17 13:05 118 08/05/17 13:05 99.9 118 12 100/47 (64) 100 08/05/17 13:00 112 08/05/17 13:00 99.9 112 13 104/50 (68) 100 08/05/17 12:55 115 08/05/17 12:55 99.9 115 13 102/56 (71) 100 08/05/17 12:50 99.9 119 12 104/59 (74) 100 08/05/17 12:50 119 08/05/17 12:47 99.9 112 12 101/55 (70) 100 08/05/17 12:47 112 08/05/17 12:45 113 08/05/17 12:45 99.9 113 13 96/49 (65) 100 08/05/17 12:42 111 08/05/17 12:42 99.9 111 13 98/53 (68) 100 08/05/17 12:40 111 08/05/17 12:40 99.9 111 11 92/53 (66) 100 08/05/17 12:35 112 08/05/17 12:35 99.9 112 12 95/49 (64) 100 08/05/17 12:30 99.9 147 12 88/51 (63) 100 08/05/17 12:30 147 08/05/17 12:25 99.9 110 12 96/54 (68) 100 08/05/17 12:25 110 08/05/17 12:20 114 08/05/17 12:20 99.9 114 12 102/54 (70) 100 08/05/17 12:15 114 08/05/17 12:15 99.9 114 13 99/49 (66) 100 08/05/17 12:10 99.9 112 12 111/53 (72) 100 08/05/17 12:10 112 08/05/17 12:05 99.9 113 13 98/54 (69) 100 08/05/17 12:05 113 08/05/17 12:00 35 08/05/17 12:00 107 08/05/17 12:00 99.9 107 12 97/56 (70) 100 08/05/17 10:25 85 08/05/17 10:20 85 08/05/17 10:15 85 08/05/17 10:10 85 08/05/17 10:05 85 08/05/17 10:00 85 08/05/17 09:30 87 08/05/17 09:30 99.9 87 13 102/52 (69) 100 08/05/17 09:25 88 08/05/17 09:25 99.9 88 14 109/52 (71) 100 08/05/17 09:20 88 08/05/17 09:20 99.9 88 12 102/52 (69) 100 08/05/17 09:15 89 08/05/17 09:15 99.9 89 12 104/52 (69) 100 08/05/17 09:11 99.9 88 12 103/53 (70) 100 08/05/17 09:11 88 08/05/17 09:05 99.9 117 12 113/54 (73) 100 08/05/17 09:05 117 08/05/17 09:00 99.9 125 13 102/47 (65) 100 08/05/17 09:00 125 08/05/17 08:55 121 08/05/17 08:55 99.9 121 13 100/54 (69) 100 08/05/17 08:50 99.9 121 13 97/46 (63) 100 08/05/17 08:50 121 08/05/17 08:48 122 08/05/17 08:48 99.9 122 13 98/52 (67) 100 08/05/17 08:45 99.9 123 13 77/51 (60) 100 08/05/17 08:45 123 08/05/17 08:40 121 08/05/17 08:40 99.9 121 14 107/50 (69) 100 08/05/17 08:35 121 08/05/17 08:35 99.9 121 13 100/63 (75) 100 08/05/17 08:30 119 08/05/17 08:30 99.9 119 13 105/49 (67) 100 08/05/17 08:25 99.9 120 13 94/54 (67) 100 08/05/17 08:25 120 08/05/17 08:20 99.9 125 14 102/58 (73) 100 08/05/17 08:20 125 08/05/17 08:15 143 08/05/17 08:15 99.9 143 13 95/48 (64) 100 08/05/17 08:10 99.9 123 14 95/46 (62) 100 08/05/17 08:10 123 08/05/17 08:05 119 08/05/17 08:05 99.9 119 14 95/49 (64) 100 08/05/17 08:00 121 08/05/17 08:00 35 08/05/17 08:00 99.9 121 15 104/49 (67) 100 08/05/17 07:44 100 35 08/05/17 04:04 100 40 08/05/17 04:00 35 08/05/17 04:00 99.5 101 12 109/50 (69) 100 08/05/17 01:05 100 40 08/05/17 00:03 113/60 (77) 08/05/17 00:00 99.1 90 13 83/44 (57) 100 08/05/17 00:00 35 08/04/17 22:07 100 40 08/04/17 20:00 35 08/04/17 20:00 98.8 99 13 104/66 (79) 100 08/04/17 19:15 100 40 08/04/17 18:00 87 08/04/17 16:36 100 40 08/04/17 16:00 98.4 91 20 111/52 (71) 100 08/04/17 16:00 35 08/04/17 16:00 90 Laboratory Tests Test 08/04/17 05:39 08/05/17 03:30 White Blood Count 14.5 TH/MM3 12.7 TH/MM3 Red Blood Count 3.00 MIL/MM3 2.78 MIL/MM3 Hemoglobin 8.7 GM/DL 8.1 GM/DL Hematocrit 27.2 % 25.2 % Mean Corpuscular Volume 90.8 FL 90.6 FL Mean Corpuscular Hemoglobin 29.1 PG 29.1 PG Mean Corpuscular Hemoglobin Concent 32.1 % 32.1 % Red Cell Distribution Width 18.3 % 18.4 % Platelet Count 325 TH/MM3 281 TH/MM3 Mean Platelet Volume 8.3 FL 8.4 FL Neutrophils (%) (Auto) 91.0 % 85.2 % Lymphocytes (%) (Auto) 4.9 % 7.0 % Monocytes (%) (Auto) 3.3 % 5.6 % Eosinophils (%) (Auto) 0.5 % 1.8 % Basophils (%) (Auto) 0.3 % 0.4 % Neutrophils # (Auto) 13.2 TH/MM3 10.9 TH/MM3 Lymphocytes # (Auto) 0.7 TH/MM3 0.9 TH/MM3 Monocytes # (Auto) 0.5 TH/MM3 0.7 TH/MM3 Eosinophils # (Auto) 0.1 TH/MM3 0.2 TH/MM3 Basophils # (Auto) 0.0 TH/MM3 0.0 TH/MM3 CBC Comment AUTO DIFF AUTO DIFF Differential Total Cells Counted 100 100 Neutrophils % (Manual) 84 % 88 % Band Neutrophils % 11 % 5 % Lymphocytes % 3 % 3 % Monocytes % 2 % 3 % Neutrophils # (Manual) 13.8 TH/MM3 11.9 TH/MM3 Differential Comment FINAL DIFF MANUAL FINAL DIFF MANUAL Platelet Estimate NORMAL NORMAL Platelet Morphology Comment NORMAL NORMAL Metamyelocytes 1 % Laboratory Tests Test 08/04/17 05:39 08/04/17 23:50 08/05/17 03:30 Blood Urea Nitrogen 46 MG/DL 44 MG/DL Creatinine 1.07 MG/DL 0.97 MG/DL Random Glucose 72 MG/DL 55 MG/DL Total Protein 5.5 GM/DL 5.1 GM/DL Calcium Level 7.4 MG/DL 7.4 MG/DL Phosphorus Level 2.3 MG/DL 2.5 MG/DL Magnesium Level 1.6 MG/DL 1.6 MG/DL Sodium Level 144 MEQ/L 144 MEQ/L Potassium Level 3.2 MEQ/L 4.5 MEQ/L 4.4 MEQ/L Chloride Level 113 MEQ/L 112 MEQ/L Carbon Dioxide Level 22.1 MEQ/L 23.3 MEQ/L Anion Gap 9 MEQ/L 9 MEQ/L Estimat Glomerular Filtration Rate 65 ML/MIN 73 ML/MIN Protein Corrected Calcium 8.3 MG/DL 8.5 MG/DL Albumin 1.3 GM/DL Alkaline Phosphatase 114 U/L Aspartate Amino Transf (AST/SGOT) 119 U/L Alanine Aminotransferase (ALT/SGPT) 232 U/L Total Bilirubin 0.3 MG/DL Direct Bilirubin 0.1 MG/DL Indirect Bilirubin 0.2 MG/DL Microbiology Date/Time Source Procedure Growth Status 08/03/17 15:10 Blood Peripheral Aerobic Blood Culture - Preliminary Gram Positive Rods Resulted 08/03/17 15:10 Blood Peripheral Anaerobic Blood Culture - Preliminary NO GROWTH IN 2 DAYS Resulted 08/03/17 15:10 Blood Peripheral Aerobic Blood Culture - Preliminary Bacillus Species Resulted 08/03/17 15:10 Blood Peripheral Anaerobic Blood Culture - Preliminary NO GROWTH IN 2 DAYS Resulted Microbiology Date/Time Source Procedure Growth Status 08/03/17 15:10 Blood Peripheral Aerobic Blood Culture Pending Received 08/03/17 15:10 Blood Peripheral Anaerobic Blood Culture Pending Received 08/03/17 15:10 Blood Peripheral Aerobic Blood Culture Pending Received 08/03/17 15:10 Blood Peripheral Anaerobic Blood Culture Pending Received 08/02/17 14:00 Blood Peripheral Aerobic Blood Culture - Final Bacillus Species Not Anthracis Resulted 08/02/17 14:00 Blood Peripheral Anaerobic Blood Culture - Preliminary NO GROWTH IN 1 DAY Resulted 08/02/17 13:50 Blood Peripheral Aerobic Blood Culture - Final Bacillus Species Not Anthracis Resulted 08/02/17 13:50 Blood Peripheral Anaerobic Blood Culture - Preliminary NO GROWTH IN 1 DAY Resulted 08/02/17 14:00 Sputum Expectorated Sputum Gram Stain - Final Resulted 08/02/17 14:00 Sputum Culture - Preliminary Gram Negative Dinesh Resulted 08/02/17 09:50 Urine Catheterized Urine Legionella Antigen - Final PRESUMPTIVE NEGATIVE FOR LEGIONELLA P... Complete 08/02/17 09:50 Urine Catheterized Urine Streptococcus pneumoniae Antigen (M - Final PRESUMPTIVE NEGATIVE FOR STREPTOCOCCU... Complete 08/02/17 12:50 Wound Other Gram Stain - Final Resulted 08/02/17 12:50 Wound Culture - Preliminary Group D Enterococcus Escherichia Coli Esbl Positive Resulted Imaging Chest X-Ray 08/03/17 0600 Signed Impressions: Service Date/Time: July 04:07 - CONCLUSION: No significant change. Patchy diffuse airspace disease of both lungs. Arvind Márquez MD Abdomen/Pelvis CT 07/31/17 0000 Signed Impressions: Service Date/Time: Monday, July 31, 2017 22:53 - CONCLUSION: 1. CT suggests mild left-sided colitis in the proper clinical setting. No obstruction , perforation or abscess. 2. Thick waledl urinary bladder. Masters catheter present. 3. Right base infiltrate and small right, tiny left pleural effusions. 1. Arvind Márquez MD Physical Exam GENERAL: Patient is in no acute distress. Unresponsive. HEENT: EOMI, No icterus. NECK: No adenopathy. LUNGS: Bilateral rhonchi. CARDIAC: Irregular rate and rhythm ABDOMEN: Soft, Decreased bowel sounds. EXTREMITIES: No CCE. Left stump intact. SKIN: No rash. IMPRESSION. Sepsis Kleb pneumo/Bacillus Bacteremia: likely GI source. Urine Cx neg Acute resp failure Acute metabolic encephalopathy: baseline dementia and parkinsons. Sepsis contributing factor. Aspiration Pneumonia (h/o vomiting APPLIED EXERCISE PHYSIOLOGIST) Colitis infectious vs ischemia. Cdiff negative. ESBL in sacral wound ? colonization. Recs Stop Azactam IV Start Imipenem. Resistant ESBL in sputum. Continue Flagyl. Repeat blood cultures x 2. Follow cultures Follow clinically Richie Jacob MD Aug 05, 2017 15:11
[2017-08-05] MEDS: IMIPENEM/CILASTATIN INJ 500 MG in SODIUM CHLORIDE 0.9% INJ 100 ML IV SCH ×2 (16:15→23:14)
[2017-08-05] MEDS ORDERED: DIGOXIN 0.5 MG/2 ML VIAL ONE (16:55)
[2017-08-05] MEDS ORDERED: DIGOXIN 0.5 MG/2 ML VIAL IV PUSH ONE (17:00)
[2017-08-05] MEDS: MAGNESIUM SULFATE 1 GM PREMIX 100 ML IV SCH ×2 (17:01→18:50)
--- NOTE | 2017-08-05 17:37 | HHI.CCPN ---
Subjective Remarks/Hospital Course 86-year-old male with past medical history of dementia, Parkinson's, bedridden, sacral decubitus ulcers, PAD with left AKA, tobacco abuse, BPH, GERD , PEG, prior tracheostomy that has subsequently been decannulated who presents to [facility] emergency department with respiratory distress. He is on a pured diet and gets supplemental bolus feeds at mealtime depending on how much that he takes by mouth. Today he did not have very much appetite, did not eat much, received a bolus feed. He then had an episode of vomiting and subsequently had tachypnea. He desaturated into the 70s on room air. He was placed on supplemental oxygen. He had rigors and fever and therefore was brought to [facility] emergency Department was where she was found to be in septic shock with multiorgan dysfunction. He has right middle lobe and right lower lobe pneumonia and urinary tract infection. Temperature is 100.6. Blood pressure is 82/49 with a lactic acid of 8.1. He is in acute kidney injury with creatinine 1.35. He has not had any diarrhea. He denies abdominal pain but has voluntary guarding on exam. (History from him is almost non existent, this is based on verbal and nonverbal cues interpreted by his ) He received vancomycin and aztreonam in the emergency department. He has received 3 L normal saline bolus. Hospitalized at [facility] in October 2016 with C. difficile and HCAP with respiratory failure. He was intubated and extubated several times and ultimately underwent tracheostomy 11/15/16 and PEG. He was recently hospitalized at [facility] 1-1/2 months ago related to infection of his sacral wound which has had multiple debridements. Reportedly has recently been on antibiotics for UTI. denies known ho MDRO. Subjective: 08/01: Tmax 99.1. Patient alert to name only, denies pain. O2 requirements decreased currently on Ventimask at 40%. Patient having multiple loose bowel movements, C. difficile PCR pending. 08/02: Afebrile. Patient noted to have increasing O2 requirements this a.m. , chest x-ray shows worsening opacities now with leukocytosis and bandemia. Patient noted to have gram-negative bacteremia. Patient currently on atrezonam and metronidazole. ID consulted appreciate recommendations. CDiff PCR noted to be negative. Today afternoon the patient was noted to go into atrial fibrillation with a heart rate in the 140s-160s was placed on a Cardizem infusion ,now rate is controlled will be transitioned to PO Cardizem. Metabolic acidosis slightly improved sodium bicarbonate drip decreased to 30 cc/hour. Plan for revision of left AKA stump this a.m. at the bedside with Dr. Connelly, under local anesthesia. 08/03: Afebrile. Patient was placed on tube feeds at 55 cc/an hour, did not tolerate, large residuals. Patient was placed on metoclopramide per GI, and tube feeds now placed on hold. The patient continues on fentanyl infusion baseline neurological status as previously noted. Decreasing oxygen requirements, currently on 35% FiO2. Blood cultures revealed variable gram- negative rods. Discussed with ID tentative plan for revision of AKA, per Dr. Bowman due to the recent results of gram-negative variable rods recommendation not to perform revision at this time. Planned to perform revision after negative blood cultures obtained and 2 or 3 days have elapsed. 08/04: Afebrile. No acute events overnight. The patient continues to have persistent leukocytosis. ID following. 08/05: Patient went into A. fib RVR this afternoon, given 1 dose of digoxin 0.25 IV. Patient was noted to have a low magnesium level and magnesium being replaced. WBC count slightly improved. Last night orthopedics came in and performed I&D the bedside. Objective Vital Signs Date Time Temp Pulse Resp B/P (MAP) Pulse Ox O2 Delivery O2 Flow Rate FiO2 08/05/17 17:00 100.0 138 13 97 08/05/17 16:05 95/54 (68) 08/05/17 16:00 35 08/03/17 07:00 Mechanical Ventilator 08/02/17 09:13 15.00 Intake and Output 08/05/17 08/05/17 08/06/17 08:00 16:00 00:00 Intake Total 657 ml Output Total 400 ml Balance 257 ml Result Diagram: 08/05/17 0330 08/05/17 0330 Imaging Last Impressions Chest X-Ray 07/31/17 9114 Signed Impressions: Service Date/Time: Monday, July 31, 2017 19:04 - CONCLUSION: Possible right midlung infiltrate. Recommend followup films. Aneudy Wong MD Abdomen/Pelvis CT 07/31/17 0000 Signed Impressions: Service Date/Time: Monday, July 31, 2017 22:53 - CONCLUSION: 1. CT suggests mild left-sided colitis in the proper clinical setting. No obstruction , perforation or abscess. 2. Thick waledl urinary bladder. Masters catheter present. 3. Right base infiltrate and small right, tiny left pleural effusions. 1. Arvind Márquez MD Last 24 hours Impressions Chest X-Ray 07/31/17 1732 Signed Impressions: Service Date/Time: Monday, July 31, 2017 19:04 - CONCLUSION: Possible right midlung infiltrate. Recommend followup films. Aneudy Wong MD Objective Remarks GENERAL: Elderly thin frail chronically ill appearing male with contracture intubated and lightly sedated on fentanyl infusion SKIN: Warm and dry. Multiple wound openings to include sacral, bilateral greater trochanters and bone protrusion left AKA HEAD: Atraumatic. Normocephalic. EYES: Right pupil 1 mm and sluggishly reactive. Left pupil is about 3 mm, aniscoria, appears nonreactive. No scleral icterus. No injection or drainage. ENT: No nasal bleeding or discharge. Mucous membranes dry. Intubated NECK: Trachea midline. No JVD. Right carotid endarterectomy scar well-healed. CARDIOVASCULAR: Irregular with sinus rhythm on the monitor with PACs and multifocal PVCs. Heart sounds are very distant. No murmur appreciated RESPIRATORY: Bilateral chest excursion. No accessory muscle use. Coarse rhonchi bilateral lung fonseca. No wheeze or Rales. GASTROINTESTINAL: Abdomen scaphoid, PEG tube in place with site benign appearing , no drainage. He has voluntary guarding with palpation of right abdomen, no apparent rebound. Bowel sounds hypoactive. : Masters rich urine MUSCULOSKELETAL: Extremities without clubbing, cyanosis. He is s/p L AKA. There is ulceration of stump with small spike of bone protruding through, no exudate. There is about 6x7 cm sacral decubitus wound stage IV s/p debridement with no fluctuance or surrounding cellulitis.There is ~2 cm ulcerations bilateral trochanters without drainage. NEUROLOGICAL: RASS-2, currently sedated on fentanyl infusion .Upper extremities with increased flexor tone bilaterally, moves spontaneously. R lower extremity contracted. Procedures 08/04- I&D of L AKA by Ortho Date of Insertion: Aug 01, 2017 Date of Insertion: Aug 01, 2017 Line: Central Venous Catheter Side: Right Location: Subclavian A/P Problem List: (1) History of lucien hole surgery ICD Code: Z98.89 - History of lucien hole surgery Status: Chronic (2) Septic shock ICD Code: A41.9 - Sepsis, unspecified organism; R65.21 - Severe sepsis with septic shock Status: Acute (3) UTI (urinary tract infection) ICD Code: N39.0 - UTI (urinary tract infection) Status: Acute (4) Dementia ICD Code: F03.90 - Dementia Status: Chronic (5) HTN (hypertension) ICD Code: I10 - HTN (hypertension) Status: Chronic (6) CKD (chronic kidney disease), stage III ICD Code: N18.3 - CKD (chronic kidney disease), stage III Status: Chronic (7) HCAP (healthcare-associated pneumonia) ICD Code: J18.9 - Pneumonia, unspecified organism Status: Acute (8) Decubital ulcer ICD Code: L89.90 - Pressure ulcer of unspecified site, unspecified stage Status: Chronic (9) S/P AKA (above knee amputation) unilateral ICD Code: Z89.619 - Acquired absence of unspecified leg above knee (10) History of BPH ICD Code: Z87.438 - History of BPH Status: Chronic (11) CAD (coronary artery disease) ICD Code: I25.10 - Atherosclerotic heart disease of [place] coronary artery without angina pectoris Status: Chronic (12) Bed confinement status ICD Code: Z74.01 - Bed confinement status Status: Chronic (13) Dysphagia ICD Code: R13.10 - Dysphagia, unspecified Status: Chronic (14) Leukocytosis ICD Code: D72.829 - Leukocytosis Status: Acute Assessment and Plan NEURO: Acute toxic metabolic encephalopathy overlying Dementia Parkinson's disease Bedridden with contractures H/O R subdural with lucien hole and SDH evacuation 04/[address] Sloan H/O R CEA Continue donepezil 10 mg by mouth daily at bedtime Hold sedative/non essential medications but he is chronically on melatonin 5 mg daily at bedtime, Xanax 0.25 mg daily, Zoloft 25 twice a day Fentanyl infusion for ventilator synchrony, maintain RASS -2 RESP: Respiratory distress with acute hypoxemia Healthcare associated pneumonia versus aspiration History of tobacco abuse Small right pleural effusion Prior tracheostomy s/p decannulation DuoNeb every 6 hours scheduled. Albuterol every 2 hours as needed. 08/01 Chest x-ray demonstrates worsening , now diffuse bilateral opacities. Antibiotics as per below 08/02 patient emergently intubated 8.0 at 23 cm at the lip Follow up sputum culture CV: Coronary artery disease with prior stents Essential hypertension Paroxysmal atrial fibrillation Septic shock Lactic acidemia PAD Hold lisinopril due to hypotension and NAYE He is not chronically anticoagulated for A. fib 07/31 A. fib RVR placed on Cardizem infusion, with 5 mg/hour we'll transition to 80 mg every 6 hours, normotensive Received 3 L normal saline bolus in the ED 07/31. Continue 0.45 NaCl with 75 mEq of bicarbonate 75 mL per hour GI: Dysphagia Colitis Diverticulosis Diarrhea Elevated transaminase On pured diet at baseline. Nothing by mouth. 08/01 C. difficile PCR-negative Has PEG for supplemental feeds. Management per GI 08/02 tube feeds initiated noted high residuals discontinued, Reglan initiated TID Lipase negative. Obtained CT abdomen and pelvis which demonstrated colitis descending colon. Mesenteric ischemia is a consideration. Will treat supportively with fluid resuscitation and abx. Overall prognosis poor and does not appear to be an operative candidate. LFTs downtrending AST 522-> 119, ALT 470->232 FEN/RENAL: Acute kidney injury BPH s/p TURP Electrolyte disturbances No hydronephrosis noted on CT scan. Fluid resuscitation as per above. Insert Masters which is necessary to monitor urine output as marker of organ perfusion in the setting of septic shock and renal failure, and multiple open wounds ID: HCAP versus aspiration UTI/cystitis - u/a with many yeast. Followup culture. Diflucan 100 mg IV daily , adjusted for renal function. Sacral and hip decubitus ulcers present on admission Influenza negative Check urine legionella and pneumococcal antigen Follow-up urine and blood cultures. Obtain sputum culture Vancomycin pharmacy dosing. Calculated creatinine clearance is 37. Aztreonam 2 g IV every 8 hours and adjust if creatinine clearance drops below 30. (PCN allergy) Flagyl 500 mg IV every 8 hours for anaerobic coverage. 08/01 C diff PCR-negative Discussed with Dr. Bowman -antibiotic management per ID. Recommendations not to perform AKA stump revision at this time secondary to new results of blood culture gram-negative variable rods. [id number] rods, bacillus species Sputum-Klebsiella pneumoniae, E coli, ESBL positive Wound-Enterococcus Faecium VRE, E coli ESBL positive MSK: S/P L AKA - 07/31 stump with poor healing bone protrusion. states she has been told before he was not an operative candidate for revision of the wound, however perhaps could rongeur at bedside? 08/04 Per ID recommendations postpone AKA revision secondary to the culture results of variable gram- negative rods Specialty Bed 08/01-discussed with Dr. Connelly yesterday plan for revision AKA under local anesthesia at bedside 08/04 -I & D performed at bedside by Ortho @ 2100 HEME: Chronic iron deficiency anemia Reactive thrombocytosis Continue Ferrous sulfate 325 mill grams by mouth 3 times a day ENDO: Hyperglycemia associated with tube feed administration Monitor bedside glucose every 6 hours and initiate low-dose insulin sliding scale as indicated. PROPH: Heparin subcutaneous for DVT prophylaxis. Famotidine 20mg BID ACCESS: Has peripheral IV. central line placement 07/31 right subclavian Patient is critically ill with septic shock and multiorgan dysfunction who is at risk for further decompensation or . states he has a living will and that she is his healthcare surrogate. She states that he had stated that he wanted to be FULL CODE. She states she would place consideration to change of code status if his condition worsened but she states she feels he has "rallied" since when he was initially admitted and that he appears to still want to fight. 08/01-obtain palliative care consulted- requests continued aggressive measures Discussed with PACKAGE DESIGNER at bedside(Anita) This patient remains critically ill with one or more organ systems which are or may become a threat to life. I have spent in excess of 37minutes discontinuously in the care and management of this patient. This time is exclusive of procedures, and includes, but is not limited to, evaluation of the patient, review of the medical record, discussions with family, consultants, nursing staff, or respiratory therapy, and documentation in the medical record. Physician Griselda Bateman Problem Qualifiers (1) UTI (urinary tract infection): Qualified Codes: N39.0 - Urinary tract infection, site not specified; R31.9 - Hematuria, unspecified (2) Dementia: (3) HTN (hypertension): Qualified Codes: I10 - Essential (primary) hypertension Griselda Bateman MD Aug 05, 2017 17:37
[2017-08-05] MEDS: RESP: ALBUTEROL 2.5 MG/3 ML NEB (PRN) NEB (19:58)
--- NOTE | 2017-08-05 21:41 | MG ---
cc: MARGAUX PRESTON Lab No: [id number] Date: 08/05/17 Age: Sex: M Race: TECHNIQUE 17 channel EEG. DESCRIPTION The background rhythm reveals generalized slowing in the delta frequency at 3-4 Hz, amplitude 20-30 microvolts. There is some muscle artifact throughout the tracing. There are no lateralizing features present. There are no epileptiform features present. Photic stimulation results in a poor driving response. INTERPRETATION Abnormal study consistent with a diffuse encephalopathy. There are no epileptiform features seen. MD TONJA Peralta/ /9:33 PM /9:38 PM
[2017-08-06] VITALS (131 sets, daily range): BP systolic 90–136; BP diastolic 45–64; PULSE 87–137; RESP 9–24; TEMP 98.1–99.5; O2SAT 94–100
[2017-08-06] MEDS: CHLORHEXIDINE GLUCONATE 2 % 1 PACK (2 CLOTHS) TOP SCH (04:00)
[2017-08-06] MEDS: IMIPENEM/CILASTATIN INJ 500 MG in SODIUM CHLORIDE 0.9% INJ 100 ML IV SCH ×3 (06:47→17:00)
[2017-08-06] MEDS: METOCLOPRAMIDE HCL 10 MG/2 ML VIAL IV PUSH SCH ×3 (06:47→22:18)
[2017-08-06 07:59] LABS: MEAN CELL VOLUME 90.5 FL (80.0-100.0); MEAN CORPUSCULAR HGB CONC 33.1 % (32.0-36.0); PLATELET COUNT 204 TH/MM3 (150-450); RED BLOOD COUNT 2.54 MIL/MM3 (4.50-5.90); RED CELL DISTRIBUTION WIDTH 17.9 % (11.6-17.2); REVIEW FLAG FINAL; WHITE BLOOD COUNT 10.9 TH/MM3 (4.0-11.0)
[2017-08-06 08:29] LABS: BICARBONATE 24.8 MEQ/L (21.0-32.0); CALCIUM-PROTEIN CORRECTED 8.7 MG/DL (8.5-10.1); POTASSIUM 3.5 MEQ/L (3.5-5.1); TOTAL BILIRUBIN ADULT 0.4 MG/DL (0.2-1.0)
[2017-08-06] MEDS: ASCORBIC ACID 500 MG TAB PO SCH (09:00)
[2017-08-06] MEDS: SODIUM CHLORIDE 0.9% IRRIGATION SCH ×2 (09:00→21:00)
[2017-08-06] MEDS: FAMOTIDINE 20 MG/2 ML VIAL IV PUSH SCH ×2 (09:00→22:18)
[2017-08-06] MEDS: SODIUM HYPOCHLORITE 0.125% 500 ML BTL TOPICAL SCH ×2 (09:00→22:20)
[2017-08-06] MEDS: SODIUM CHLORIDE 0.9% FLUSH 10 ML FLUSH IV FLUSH SCH (09:00)
[2017-08-06] MEDS: LACTOBACILLUS ACIDOPHILUS 1 GM PACKET PEG SCH ×3 (09:00→18:00)
[2017-08-06] MEDS: ZINC OXIDE 20% OINT 30 GM TUBE TOPICAL SCH ×2 (09:00→22:21)
[2017-08-06] MEDS: ARTIFICIAL TEARS OPTH OINT 3.5 APPLIC/3.5 GM TUBO LEFT EYE SCH ×2 (09:00→22:20)
[2017-08-06] MEDS: INSULIN ASPART SUPPLEMENTAL SCALE SQ SCH ×3 (09:15→21:15)
[2017-08-06] MEDS: FERROUS SULFATE 325 MG (65 MG ELEMENTAL IRON) TAB PO SCH ×3 (09:54→18:37)
[2017-08-06] MEDS: DOCUSATE SODIUM 50 MG/SENNA 8.6 MG TAB PO SCH ×2 (09:54→22:18)
[2017-08-06] MEDS: HEPARIN SODIUM - SQ 10,000 UNITS/ML VIAL SQ SCH ×2 (09:55→22:19)
[2017-08-06] MEDS: fentaNYL DRIP 250 ML IV PRN (09:56)
--- NOTE | 2017-08-06 11:53 | HHI.IDPN ---
Note Infectious Disease Note ID COVERAGE. Mr. Ramesh is a 86 years old male with a past medical history of dementia, Parkinson's, PVD with left AKA, tobacco abuse, BPH, GERD, bed ridden with sacral decubitus ulcers, PEG and history of tracheostomy that was decannulated. [facility] due to tachypnea, elevated temperature and tachycardia. Discussed with RN Eyes open but not following commands. Blood culture has Bacillus species. Sputum culture has ESBL E. coli and Klebsiella. Has thick green secretions. Low grade fevers Antibiotics Imipenem. Flagyl oral. Lines Line sites with no e.o infection Past Medical History reviewed Allergies: Coded Allergies: Fish Containing Products (Unverified Allergy, Severe, 04/25/17) levofloxacin (Unverified Allergy, Severe, 04/25/17) lorazepam (Unverified Allergy, Severe, 04/25/17) morphine (Unverified Allergy, Severe, 04/25/17) penicillin G (Unverified Allergy, Severe, 04/25/17) sulfamethoxazole (Unverified Allergy, Severe, hives, 04/25/17) trimethoprim (Unverified Allergy, Severe, hives, 04/25/17) acetaminophen (Verified Allergy, Mild, ITCHING, 07/31/17) hydrocortisone (Unverified Allergy, Unknown, UNKNOWN, 04/25/17) OBJECTIVE: Vital Signs Date Time Temp Pulse Resp B/P (MAP) Pulse Ox O2 Delivery O2 Flow Rate FiO2 08/06/17 07:39 97 35 08/06/17 06:00 118 08/06/17 04:00 99.5 118 18 130/61 (84) 95 08/06/17 04:00 35 08/06/17 04:00 118 08/06/17 03:37 97 35 08/06/17 02:00 110 08/06/17 00:10 97 35 08/06/17 00:00 110 08/06/17 00:00 99.5 110 18 98/51 (67) 96 08/06/17 00:00 35 08/05/17 22:00 97 08/05/17 20:00 99.7 110 17 87/53 (64) 98 08/05/17 20:00 35 08/05/17 20:00 97 08/05/17 19:42 97 35 08/05/17 18:00 110 08/05/17 17:00 100.0 138 13 97 08/05/17 17:00 138 08/05/17 16:05 100.0 114 15 95/54 (68) 97 08/05/17 16:05 114 08/05/17 16:00 100.0 114 15 110/50 (70) 97 08/05/17 16:00 35 08/05/17 16:00 114 08/05/17 15:30 119 08/05/17 15:25 98 35 08/05/17 15:25 124 08/05/17 15:20 124 08/05/17 15:15 142 08/05/17 15:10 117 08/05/17 15:05 110 08/05/17 15:00 108 08/05/17 14:55 103 08/05/17 14:50 101 08/05/17 14:45 105 08/05/17 14:40 98 08/05/17 14:35 106 08/05/17 14:30 105 08/05/17 14:25 105 08/05/17 14:20 80 08/05/17 14:15 142 08/05/17 14:11 104 08/05/17 14:10 101 08/05/17 14:05 99 08/05/17 14:00 120 08/05/17 13:25 99.9 110 11 102/51 (68) 100 08/05/17 13:25 110 08/05/17 13:20 115 08/05/17 13:20 99.9 115 12 95/55 (68) 100 08/05/17 13:15 99.9 115 13 99/46 (63) 100 08/05/17 13:15 115 08/05/17 13:10 115 08/05/17 13:10 99.9 115 13 101/51 (68) 100 08/05/17 13:08 100 45 08/05/17 13:05 118 08/05/17 13:05 99.9 118 12 100/47 (64) 100 08/05/17 13:00 112 08/05/17 13:00 99.9 112 13 104/50 (68) 100 08/05/17 12:55 115 08/05/17 12:55 99.9 115 13 102/56 (71) 100 08/05/17 12:50 99.9 119 12 104/59 (74) 100 08/05/17 12:50 119 08/05/17 12:47 99.9 112 12 101/55 (70) 100 08/05/17 12:47 112 08/05/17 12:45 113 08/05/17 12:45 99.9 113 13 96/49 (65) 100 08/05/17 12:42 111 08/05/17 12:42 99.9 111 13 98/53 (68) 100 08/05/17 12:40 111 08/05/17 12:40 99.9 111 11 92/53 (66) 100 08/05/17 12:35 112 08/05/17 12:35 99.9 112 12 95/49 (64) 100 08/05/17 12:30 99.9 147 12 88/51 (63) 100 08/05/17 12:30 147 08/05/17 12:25 99.9 110 12 96/54 (68) 100 08/05/17 12:25 110 08/05/17 12:20 114 08/05/17 12:20 99.9 114 12 102/54 (70) 100 08/05/17 12:15 114 08/05/17 12:15 99.9 114 13 99/49 (66) 100 08/05/17 12:10 99.9 112 12 111/53 (72) 100 08/05/17 12:10 112 08/05/17 12:05 99.9 113 13 98/54 (69) 100 08/05/17 12:05 113 08/05/17 12:00 35 08/05/17 12:00 107 08/05/17 12:00 99.9 107 12 97/56 (70) 100 Laboratory Tests Test 08/05/17 03:30 08/06/17 07:15 White Blood Count 12.7 TH/MM3 10.9 TH/MM3 Red Blood Count 2.78 MIL/MM3 2.54 MIL/MM3 Hemoglobin 8.1 GM/DL 7.6 GM/DL Hematocrit 25.2 % 23.0 % Mean Corpuscular Volume 90.6 FL 90.5 FL Mean Corpuscular Hemoglobin 29.1 PG 30.0 PG Mean Corpuscular Hemoglobin Concent 32.1 % 33.1 % Red Cell Distribution Width 18.4 % 17.9 % Platelet Count 281 TH/MM3 204 TH/MM3 Mean Platelet Volume 8.4 FL 8.6 FL Neutrophils (%) (Auto) 85.2 % Lymphocytes (%) (Auto) 7.0 % Monocytes (%) (Auto) 5.6 % Eosinophils (%) (Auto) 1.8 % Basophils (%) (Auto) 0.4 % Neutrophils # (Auto) 10.9 TH/MM3 Lymphocytes # (Auto) 0.9 TH/MM3 Monocytes # (Auto) 0.7 TH/MM3 Eosinophils # (Auto) 0.2 TH/MM3 Basophils # (Auto) 0.0 TH/MM3 CBC Comment AUTO DIFF Differential Total Cells Counted 100 Neutrophils % (Manual) 88 % Band Neutrophils % 5 % Lymphocytes % 3 % Monocytes % 3 % Neutrophils # (Manual) 11.9 TH/MM3 Metamyelocytes 1 % Differential Comment FINAL DIFF MANUAL Platelet Estimate NORMAL Platelet Morphology Comment NORMAL Laboratory Tests Test 08/04/17 23:50 08/05/17 03:30 08/06/17 07:15 Potassium Level 4.5 MEQ/L 4.4 MEQ/L 3.5 MEQ/L Blood Urea Nitrogen 44 MG/DL 39 MG/DL Creatinine 0.97 MG/DL 0.86 MG/DL Random Glucose 55 MG/DL 102 MG/DL Total Protein 5.1 GM/DL 4.5 GM/DL Albumin 1.3 GM/DL 1.0 GM/DL Calcium Level 7.4 MG/DL 7.2 MG/DL Phosphorus Level 2.5 MG/DL Magnesium Level 1.6 MG/DL 2.0 MG/DL Alkaline Phosphatase 114 U/L 97 U/L Aspartate Amino Transf (AST/SGOT) 119 U/L 72 U/L Alanine Aminotransferase (ALT/SGPT) 232 U/L 136 U/L Total Bilirubin 0.3 MG/DL 0.4 MG/DL Direct Bilirubin 0.1 MG/DL Sodium Level 144 MEQ/L 145 MEQ/L Chloride Level 112 MEQ/L 111 MEQ/L Carbon Dioxide Level 23.3 MEQ/L 24.8 MEQ/L Anion Gap 9 MEQ/L 9 MEQ/L Estimat Glomerular Filtration Rate 73 ML/MIN 84 ML/MIN Protein Corrected Calcium 8.5 MG/DL 8.7 MG/DL Indirect Bilirubin 0.2 MG/DL Microbiology Date/Time Source Procedure Growth Status 08/06/17 06:45 Blood Peripheral Aerobic Blood Culture Pending Received 08/06/17 06:45 Blood Peripheral Anaerobic Blood Culture Pending Received 08/06/17 05:41 Blood Peripheral Aerobic Blood Culture Pending Received 08/06/17 05:41 Blood Peripheral Anaerobic Blood Culture Pending Received 08/03/17 15:10 Blood Peripheral Aerobic Blood Culture - Final Bacillus Species Not Anthracis Resulted 08/03/17 15:10 Blood Peripheral Anaerobic Blood Culture - Preliminary NO GROWTH IN 3 DAYS Resulted 08/03/17 15:10 Blood Peripheral Aerobic Blood Culture - Final Bacillus Species Not Anthracis Resulted 08/03/17 15:10 Blood Peripheral Anaerobic Blood Culture - Preliminary NO GROWTH IN 3 DAYS Resulted Microbiology Date/Time Source Procedure Growth Status 08/03/17 15:10 Blood Peripheral Aerobic Blood Culture - Preliminary Gram Positive Rods Resulted 08/03/17 15:10 Blood Peripheral Anaerobic Blood Culture - Preliminary NO GROWTH IN 2 DAYS Resulted 08/03/17 15:10 Blood Peripheral Aerobic Blood Culture - Preliminary Bacillus Species Resulted 08/03/17 15:10 Blood Peripheral Anaerobic Blood Culture - Preliminary NO GROWTH IN 2 DAYS Resulted Microbiology Date/Time Source Procedure Growth Status 08/03/17 15:10 Blood Peripheral Aerobic Blood Culture Pending Received 08/03/17 15:10 Blood Peripheral Anaerobic Blood Culture Pending Received 08/03/17 15:10 Blood Peripheral Aerobic Blood Culture Pending Received 08/03/17 15:10 Blood Peripheral Anaerobic Blood Culture Pending Received 08/02/17 14:00 Blood Peripheral Aerobic Blood Culture - Final Bacillus Species Not Anthracis Resulted 08/02/17 14:00 Blood Peripheral Anaerobic Blood Culture - Preliminary NO GROWTH IN 1 DAY Resulted 08/02/17 13:50 Blood Peripheral Aerobic Blood Culture - Final Bacillus Species Not Anthracis Resulted 08/02/17 13:50 Blood Peripheral Anaerobic Blood Culture - Preliminary NO GROWTH IN 1 DAY Resulted 08/02/17 14:00 Sputum Expectorated Sputum Gram Stain - Final Resulted 08/02/17 14:00 Sputum Culture - Preliminary Gram Negative Dinesh Resulted 08/02/17 09:50 Urine Catheterized Urine Legionella Antigen - Final PRESUMPTIVE NEGATIVE FOR LEGIONELLA P... Complete 08/02/17 09:50 Urine Catheterized Urine Streptococcus pneumoniae Antigen (M - Final PRESUMPTIVE NEGATIVE FOR STREPTOCOCCU... Complete 08/02/17 12:50 Wound Other Gram Stain - Final Resulted 08/02/17 12:50 Wound Culture - Preliminary Group D Enterococcus Escherichia Coli Esbl Positive Resulted Imaging Chest X-Ray 08/05/17 0600 Signed Impressions: Service Date/Time: Saturday, August 05, 2017 02:53 - CONCLUSION: No significant change. Hazy infiltrate remains in both lungs right greater than left. Onel Romero MD Chest X-Ray 08/03/17 0600 Signed Impressions: Service Date/Time: July 04:07 - CONCLUSION: No significant change. Patchy diffuse airspace disease of both lungs. Arvind Márquez MD Abdomen/Pelvis CT 07/31/17 0000 Signed Impressions: Service Date/Time: Monday, July 31, 2017 22:53 - CONCLUSION: 1. CT suggests mild left-sided colitis in the proper clinical setting. No obstruction , perforation or abscess. 2. Thick waledl urinary bladder. Masters catheter present. 3. Right base infiltrate and small right, tiny left pleural effusions. 1. Arvind Márquez MD Physical Exam GENERAL: Patient is in no acute distress. Unresponsive. HEENT: EOMI, No icterus. NECK: No adenopathy. LUNGS: Bilateral rhonchi. CARDIAC: Irregular rate and rhythm ABDOMEN: Soft, Decreased bowel sounds. EXTREMITIES: No CCE. Left stump intact. SKIN: No rash. IMPRESSION. Sepsis Kleb pneumo/Bacillus Bacteremia: likely GI source. Urine Cx neg Acute resp failure Acute metabolic encephalopathy: baseline dementia and parkinsons. Sepsis contributing factor. Aspiration Pneumonia (h/o vomiting [employer]) Colitis infectious vs ischemia. Cdiff negative. ESBL in sacral wound ? colonization. Recs Continue Imipenem. Resistant ESBL in sputum. Continue Flagyl. Follow repeat blood cultures. Follow cultures Follow clinically Richie Jacob MD Aug 06, 2017 11:53
[2017-08-06] MEDS: SODIUM BICARBONATE 8.4% INJ 75 MEQ in SODIUM CHLOR 0.45% 1000 ML INJ 1,000 ML IV SCH ×2 (12:23→17:29)
[2017-08-06] MEDS ORDERED: DILTIAZEM HCL 25 MG/5 ML VIAL IV PRN (13:00)
[2017-08-06] MEDS ORDERED: DIGOXIN 0.5 MG/2 ML VIAL IV PUSH ONE (13:00)
--- NOTE | 2017-08-06 13:00 | HHI.CCPN ---
Subjective Remarks/Hospital Course 86-year-old male with past medical history of dementia, Parkinson's, bedridden, sacral decubitus ulcers, PAD with left AKA, tobacco abuse, BPH, GERD , PEG, prior tracheostomy that has subsequently been decannulated who presents to [facility] emergency department with respiratory distress. He is on a pured diet and gets supplemental bolus feeds at mealtime depending on how much that he takes by mouth. Today he did not have very much appetite, did not eat much, received a bolus feed. He then had an episode of vomiting and subsequently had tachypnea. He desaturated into the 70s on room air. He was placed on supplemental oxygen. He had rigors and fever and therefore was brought to [facility] emergency Department was where she was found to be in septic shock with multiorgan dysfunction. He has right middle lobe and right lower lobe pneumonia and urinary tract infection. Temperature is 100.6. Blood pressure is 82/49 with a lactic acid of 8.1. He is in acute kidney injury with creatinine 1.35. He has not had any diarrhea. He denies abdominal pain but has voluntary guarding on exam. (History from him is almost non existent, this is based on verbal and nonverbal cues interpreted by his ) He received vancomycin and aztreonam in the emergency department. He has received 3 L normal saline bolus. Hospitalized at [place] in October 2016 with C. difficile and HCAP with respiratory failure. He was intubated and extubated several times and ultimately underwent tracheostomy 11/15/16 and PEG. He was recently hospitalized at [facility] 1-1/2 months ago related to infection of his sacral wound which has had multiple debridements. Reportedly has recently been on antibiotics for UTI. denies known ho MDRO. Subjective: 08/01: Tmax 99.1. Patient alert to name only, denies pain. O2 requirements decreased currently on Ventimask at 40%. Patient having multiple loose bowel movements, C. difficile PCR pending. 08/02: Afebrile. Patient noted to have increasing O2 requirements this a.m. , chest x-ray shows worsening opacities now with leukocytosis and bandemia. Patient noted to have gram-negative bacteremia. Patient currently on atrezonam and metronidazole. ID consulted appreciate recommendations. CDiff PCR noted to be negative. Today afternoon the patient was noted to go into atrial fibrillation with a heart rate in the 140s-160s was placed on a Cardizem infusion ,now rate is controlled will be transitioned to PO Cardizem. Metabolic acidosis slightly improved sodium bicarbonate drip decreased to 30 cc/hour. Plan for revision of left AKA stump this a.m. at the bedside with Dr. Connelly, under local anesthesia. 08/03: Afebrile. Patient was placed on tube feeds at 55 cc/an hour, did not tolerate, large residuals. Patient was placed on metoclopramide per GI, and tube feeds now placed on hold. The patient continues on fentanyl infusion baseline neurological status as previously noted. Decreasing oxygen requirements, currently on 35% FiO2. Blood cultures revealed variable gram- negative rods. Discussed with ID tentative plan for revision of AKA, per Dr. Bowman due to the recent results of gram-negative variable rods recommendation not to perform revision at this time. Planned to perform revision after negative blood cultures obtained and 2 or 3 days have elapsed. 08/04: Afebrile. No acute events overnight. The patient continues to have persistent leukocytosis. ID following. 08/05: Patient went into A. fib RVR this afternoon, given 1 dose of digoxin 0.25 IV. Patient was noted to have a low magnesium level and magnesium being replaced. WBC count slightly improved. Last night orthopedics came in and performed I&D the bedside. 08/06: Remains sedated, orally intubated on mechanical ventilation. Objective Vital Signs Date Time Temp Pulse Resp B/P (MAP) Pulse Ox O2 Delivery O2 Flow Rate FiO2 08/06/17 12:41 98 35 08/06/17 11:30 114 08/06/17 09:35 98.2 14 109/55 (73) 08/03/17 07:00 Mechanical Ventilator 08/02/17 09:13 15.00 Intake and Output 08/06/17 08/06/17 08/07/17 08:00 16:00 00:00 Intake Total 2745 ml 200 ml Output Total 450 ml Balance 2295 ml 200 ml Result Diagram: 08/06/17 0715 08/06/17 0715 Imaging Last Impressions Chest X-Ray 07/31/17 9613 Signed Impressions: Service Date/Time: Monday, July 31, 2017 19:04 - CONCLUSION: Possible right midlung infiltrate. Recommend followup films. Aneudy Wong MD Abdomen/Pelvis CT 07/31/17 0000 Signed Impressions: Service Date/Time: Monday, July 31, 2017 22:53 - CONCLUSION: 1. CT suggests mild left-sided colitis in the proper clinical setting. No obstruction , perforation or abscess. 2. Thick waledl urinary bladder. Masters catheter present. 3. Right base infiltrate and small right, tiny left pleural effusions. 1. Arvind Márquez MD Last 24 hours Impressions Chest X-Ray 07/31/17 1732 Signed Impressions: Service Date/Time: Monday, July 31, 2017 19:04 - CONCLUSION: Possible right midlung infiltrate. Recommend followup films. Aneudy Wong MD Objective Remarks GENERAL: Elderly thin frail chronically ill appearing male with contracture intubated and lightly sedated on fentanyl infusion SKIN: Warm and dry. Multiple wound openings to include sacral, bilateral greater trochanters and bone protrusion left AKA HEAD: Atraumatic. Normocephalic. EYES: Right pupil 1 mm and sluggishly reactive. Left pupil is about 3 mm, aniscoria, appears nonreactive. No scleral icterus. No injection or drainage. ENT: No nasal bleeding or discharge. Mucous membranes dry. Intubated NECK: Trachea midline. No JVD. Right carotid endarterectomy scar well-healed. CARDIOVASCULAR: Irregular with sinus rhythm on the monitor with PACs and multifocal PVCs. Heart sounds are very distant. No murmur appreciated RESPIRATORY: Bilateral chest excursion. No accessory muscle use. Coarse rhonchi bilateral lung fonseca. No wheeze or Rales. GASTROINTESTINAL: Abdomen scaphoid, PEG tube in place with site benign appearing , no drainage. He has voluntary guarding with palpation of right abdomen, no apparent rebound. Bowel sounds hypoactive. : Masters rich urine MUSCULOSKELETAL: Extremities without clubbing, cyanosis. He is s/p L AKA. There is ulceration of stump with small spike of bone protruding through, no exudate. There is about 6x7 cm sacral decubitus wound stage IV s/p debridement with no fluctuance or surrounding cellulitis.There is ~2 cm ulcerations bilateral trochanters without drainage. NEUROLOGICAL: RASS-2, currently sedated on fentanyl infusion .Upper extremities with increased flexor tone bilaterally, moves spontaneously. R lower extremity contracted. Procedures 08/04- I&D of L AKA by Ortho Date of Insertion: Aug 01, 2017 Date of Insertion: Aug 01, 2017 Line: Central Venous Catheter Side: Right Location: Subclavian A/P Problem List: (1) History of lucien hole surgery ICD Code: Z98.89 - History of lucien hole surgery Status: Chronic (2) Septic shock ICD Code: A41.9 - Sepsis, unspecified organism; R65.21 - Severe sepsis with septic shock Status: Acute (3) UTI (urinary tract infection) ICD Code: N39.0 - UTI (urinary tract infection) Status: Acute (4) Dementia ICD Code: F03.90 - Dementia Status: Chronic (5) HTN (hypertension) ICD Code: I10 - HTN (hypertension) Status: Chronic (6) CKD (chronic kidney disease), stage III ICD Code: N18.3 - CKD (chronic kidney disease), stage III Status: Chronic (7) HCAP (healthcare-associated pneumonia) ICD Code: J18.9 - Pneumonia, unspecified organism Status: Acute (8) Decubital ulcer ICD Code: L89.90 - Pressure ulcer of unspecified site, unspecified stage Status: Chronic (9) S/P AKA (above knee amputation) unilateral ICD Code: Z89.619 - Acquired absence of unspecified leg above knee (10) History of BPH ICD Code: Z87.438 - History of BPH Status: Chronic (11) CAD (coronary artery disease) ICD Code: I25.10 - Atherosclerotic heart disease of [place] coronary artery without angina pectoris Status: Chronic (12) Bed confinement status ICD Code: Z74.01 - Bed confinement status Status: Chronic (13) Dysphagia ICD Code: R13.10 - Dysphagia, unspecified Status: Chronic (14) Leukocytosis ICD Code: D72.829 - Leukocytosis Status: Acute Assessment and Plan NEURO: Acute toxic metabolic encephalopathy overlying Dementia Parkinson's disease Bedridden with contractures H/O R subdural with lucien hole and SDH evacuation 04/[address] Sloan H/O R CEA Continue donepezil 10 mg by mouth daily at bedtime Hold sedative/non essential medications but he is chronically on melatonin 5 mg daily at bedtime, Xanax 0.25 mg daily, Zoloft 25 twice a day Fentanyl infusion for ventilator synchrony, maintain RASS -2 RESP: Respiratory distress with acute hypoxemia Healthcare associated pneumonia versus aspiration History of tobacco abuse Small right pleural effusion Prior tracheostomy s/p decannulation DuoNeb every 6 hours scheduled. Albuterol every 2 hours as needed. 08/01 Chest x-ray demonstrates worsening , now diffuse bilateral opacities. Antibiotics as per below 08/02 patient emergently intubated 8.0 at 23 cm at the lip Follow up sputum culture CV: Coronary artery disease with prior stents Essential hypertension Paroxysmal atrial fibrillation Septic shock Lactic acidemia PAD Hold lisinopril due to hypotension and NAYE He is not chronically anticoagulated for A. fib 07/31 A. fib RVR placed on Cardizem infusion, with 5 mg/hour, switched to cardizem via PEG every 6 hours. The toxin 0.5 mg IV 1 dose on 08/06 Continue 0.45 NaCl with 75 mEq of bicarbonate 75 mL per hour GI: Dysphagia Colitis Diverticulosis Diarrhea Elevated transaminase On pured diet at baseline. Nothing by mouth 08/01 C. difficile PCR-negative Has PEG for supplemental feeds. Management per GI 08/02 tube feeds initiated noted high residuals discontinued, Reglan initiated TID Lipase negative. Obtained CT abdomen and pelvis which demonstrated colitis descending colon. Mesenteric ischemia is a consideration. Will treat supportively with fluid resuscitation and abx. Overall prognosis poor and does not appear to be an operative candidate. LFTs downtrending AST 522-> 119, ALT 470->232 FEN/RENAL: Acute kidney injury BPH s/p TURP Electrolyte disturbances No hydronephrosis noted on CT scan. Fluid resuscitation as per above. Insert Masters which is necessary to monitor urine output as marker of organ perfusion in the setting of septic shock and renal failure, and multiple open wounds ID: HCAP versus aspiration UTI/cystitis - u/a with many yeast. Followup culture. Diflucan 100 mg IV daily , adjusted for renal function. Sacral and hip decubitus ulcers present on admission Influenza negative Check urine legionella and pneumococcal antigen Follow-up urine and blood cultures. Obtain sputum culture Vancomycin pharmacy dosing. Calculated creatinine clearance is 37. Aztreonam 2 g IV every 8 hours and adjust if creatinine clearance drops below 30. (PCN allergy) Flagyl 500 mg IV every 8 hours for anaerobic coverage. 08/01 C diff PCR-negative Discussed with Dr. Bowman -antibiotic management per ID. Recommendations not to perform AKA stump revision at this time secondary to new results of blood culture gram-negative variable rods. Uuaei-wutu-mearyqlr rods, bacillus species Sputum-Klebsiella pneumoniae, E coli, ESBL positive Wound-Enterococcus Faecium VRE, E coli ESBL positive MSK: S/P L AKA - 07/31 stump with poor healing bone protrusion. states she has been told before he was not an operative candidate for revision of the wound, however perhaps could rongeur at bedside? 08/04 Per ID recommendations postpone AKA revision secondary to the culture results of variable gram- negative rods Specialty Bed 08/01-discussed with Dr. Connelly yesterday plan for revision AKA under local anesthesia at bedside 08/04 -I & D performed at bedside by Ortho @ 2100 HEME: Chronic iron deficiency anemia Reactive thrombocytosis Continue Ferrous sulfate 325 mill grams by mouth 3 times a day ENDO: Hyperglycemia associated with tube feed administration Monitor bedside glucose every 6 hours and initiate low-dose insulin sliding scale as indicated. PROPH: Heparin subcutaneous for DVT prophylaxis. Famotidine 20mg BID ACCESS: Has peripheral IV. central line placement 07/31 right subclavian Patient is critically ill with septic shock and multiorgan dysfunction who is at risk for further decompensation or . Per dr. Bateman : states he has a living will and that she is his healthcare surrogate. She states that he had stated that he wanted to be FULL CODE. She states she would place consideration to change of code status if his condition worsened but she states she feels he has "rallied" since when he was initially admitted and that he appears to still want to fight. 08/01-obtain palliative care consulted- requests continued aggressive measures This patient remains critically ill with one or more organ systems which are or may become a threat to life. I have spent in excess of 35minutes discontinuously in the care and management of this patient. This time is exclusive of procedures, and includes, but is not limited to, evaluation of the patient, review of the medical record, discussions with family, consultants, nursing staff, or respiratory therapy, and documentation in the medical record. Problem Qualifiers (1) UTI (urinary tract infection): Qualified Codes: N39.0 - Urinary tract infection, site not specified; R31.9 - Hematuria, unspecified (2) Dementia: (3) HTN (hypertension): Qualified Codes: I10 - Essential (primary) hypertension Tay Bowman MD Aug 06, 2017 13:00
--- NOTE | 2017-08-06 14:08 | HHI.GIFU ---
Subjective Remarks Sedated on vent. (Nae Obregon) Objective Vitals I&O Vital Signs Date Time Temp Pulse Resp B/P (MAP) Pulse Ox O2 Delivery O2 Flow Rate FiO2 08/06/17 12:41 98 35 08/06/17 11:30 114 08/06/17 11:25 123 08/06/17 11:20 121 08/06/17 11:15 119 08/06/17 11:10 116 08/06/17 11:05 115 08/06/17 11:01 115 08/06/17 11:00 121 08/06/17 10:55 109 08/06/17 10:50 110 08/06/17 10:45 125 08/06/17 10:40 110 08/06/17 10:35 115 08/06/17 10:30 125 08/06/17 10:25 124 08/06/17 10:20 121 08/06/17 10:15 121 08/06/17 10:10 129 08/06/17 10:05 131 08/06/17 10:00 137 08/06/17 09:35 98.2 124 14 109/55 (73) 100 08/06/17 09:35 124 08/06/17 09:30 125 08/06/17 09:30 98.2 125 14 95/50 (65) 100 08/06/17 09:25 126 08/06/17 09:25 98.2 126 14 90/51 (64) 100 08/06/17 09:20 98.2 126 14 98/57 (71) 100 08/06/17 09:20 126 08/06/17 09:15 98.2 125 14 136/56 (82) 99 08/06/17 09:15 125 08/06/17 09:10 98.2 128 14 120/54 (76) 98 08/06/17 09:10 128 08/06/17 09:05 129 08/06/17 09:05 98.2 129 14 114/56 (75) 98 08/06/17 09:00 98.2 122 13 115/53 (73) 99 08/06/17 09:00 122 08/06/17 08:55 129 08/06/17 08:55 98.2 129 14 134/60 (84) 98 08/06/17 08:50 98.2 120 14 113/51 (71) 98 08/06/17 08:50 120 08/06/17 08:45 126 08/06/17 08:45 98.2 126 14 110/55 (73) 98 08/06/17 08:40 98.2 125 14 125/57 (79) 98 08/06/17 08:40 125 08/06/17 08:35 104 08/06/17 08:35 98.2 104 14 116/56 (76) 96 08/06/17 08:30 92 08/06/17 08:30 98.2 92 14 123/56 (78) 97 08/06/17 08:25 92 08/06/17 08:25 98.2 92 15 116/48 (70) 98 08/06/17 08:20 92 08/06/17 08:20 98.2 92 14 127/60 (82) 97 08/06/17 08:15 98.2 91 14 118/54 (75) 97 08/06/17 08:15 91 08/06/17 08:10 91 08/06/17 08:10 98.2 91 14 120/56 (77) 97 08/06/17 08:05 98.2 88 14 117/55 (75) 98 08/06/17 08:05 88 08/06/17 08:00 87 08/06/17 08:00 35 08/06/17 08:00 98.6 87 14 106/52 (70) 97 08/06/17 07:39 97 35 08/06/17 06:00 118 08/06/17 04:00 99.5 118 18 130/61 (84) 95 08/06/17 04:00 35 08/06/17 04:00 118 08/06/17 03:37 97 35 08/06/17 02:00 110 08/06/17 00:10 97 35 08/06/17 00:00 110 08/06/17 00:00 99.5 110 18 98/51 (67) 96 08/06/17 00:00 35 08/05/17 22:00 97 08/05/17 20:00 99.7 110 17 87/53 (64) 98 08/05/17 20:00 35 08/05/17 20:00 97 08/05/17 19:42 97 35 08/05/17 18:00 110 08/05/17 17:00 100.0 138 13 97 08/05/17 17:00 138 08/05/17 16:05 100.0 114 15 95/54 (68) 97 08/05/17 16:05 114 08/05/17 16:00 100.0 114 15 110/50 (70) 97 08/05/17 16:00 35 08/05/17 16:00 114 08/05/17 15:30 119 08/05/17 15:25 98 35 08/05/17 15:25 124 08/05/17 15:20 124 08/05/17 15:15 142 08/05/17 15:10 117 08/05/17 15:05 110 08/05/17 15:00 108 08/05/17 14:55 103 08/05/17 14:50 101 08/05/17 14:45 105 08/05/17 14:40 98 08/05/17 14:35 106 08/05/17 14:30 105 08/05/17 14:25 105 08/05/17 14:20 80 08/05/17 14:15 142 08/05/17 14:11 104 08/05/17 14:10 101 08/05/17 14:05 99 08/05/17 14:00 120 I/O 08/05/17 08/05/17 08/05/17 08/06/17 08/06/17 08/06/17 07:00 15:00 23:00 07:00 15:00 23:00 Intake Total 657 ml 1000 ml 527 ml 2745 ml 200 ml Output Total 400 ml 400 ml 450 ml Balance 257 ml 1000 ml 127 ml 2295 ml 200 ml Intake Oral 0 ml IV Total 657 ml 1000 ml 200 ml 2745 ml 200 ml Tube Feeding 87 ml Other 240 ml Output Urine Total 375 ml 400 ml 450 ml Gastric Drainage Total 25 ml # Bowel Movements 0 0 Laboratory Laboratory Tests Test 08/06/17 07:15 White Blood Count 10.9 Red Blood Count 2.54 Hemoglobin 7.6 Hematocrit 23.0 Mean Corpuscular Volume 90.5 Mean Corpuscular Hemoglobin 30.0 Mean Corpuscular Hemoglobin Concent 33.1 Red Cell Distribution Width 17.9 Platelet Count 204 Mean Platelet Volume 8.6 Blood Urea Nitrogen 39 Creatinine 0.86 Random Glucose 102 Total Protein 4.5 Albumin 1.0 Calcium Level 7.2 Alkaline Phosphatase 97 Aspartate Amino Transf (AST/SGOT) 72 Alanine Aminotransferase (ALT/SGPT) 136 Total Bilirubin 0.4 Sodium Level 145 Potassium Level 3.5 Chloride Level 111 Carbon Dioxide Level 24.8 Anion Gap 9 Estimat Glomerular Filtration Rate 84 Protein Corrected Calcium 8.7 Magnesium Level 2.0 Date/Time Source Procedure Growth Status 08/06/17 06:45 Blood Peripheral Aerobic Blood Culture Pending Received 08/06/17 06:45 Blood Peripheral Anaerobic Blood Culture Pending Received 08/02/17 14:00 Sputum Expectorated Sputum Gram Stain - Final Complete 08/02/17 14:00 Sputum Culture - Final Klebsiella Pneumoniae Escherichia Coli Esbl Positive Complete 08/02/17 09:50 Urine Catheterized Urine Legionella Antigen - Final PRESUMPTIVE NEGATIVE FOR LEGIONELLA P... Complete 08/02/17 09:50 Urine Catheterized Urine Streptococcus pneumoniae Antigen (M - Final PRESUMPTIVE NEGATIVE FOR STREPTOCOCCU... Complete 08/02/17 12:50 Wound Other Gram Stain - Final Complete 08/02/17 12:50 Wound Culture - Final Enterococcus Faecium Vre Escherichia Coli Esbl Positive Complete Imaging Last Impressions Chest X-Ray 08/05/17 0600 Signed Impressions: Service Date/Time: Saturday, August 05, 2017 02:53 - CONCLUSION: No significant change. Hazy infiltrate remains in both lungs right greater than left. Onel Romero MD Abdomen/Pelvis CT 07/31/17 0000 Signed Impressions: Service Date/Time: Monday, July 31, 2017 22:53 - CONCLUSION: 1. CT suggests mild left-sided colitis in the proper clinical setting. No obstruction , perforation or abscess. 2. Thick waledl urinary bladder. Masters catheter present. 3. Right base infiltrate and small right, tiny left pleural effusions. 1. Arvind Márquez MD Physical Exam HEENT: Normocephalic; atraumatic; no jaundice. CHEST: Coarse bronchi bilaterally. CARDIAC: Irregular. ABDOMEN: Voluntary guarding at right abdominal area. Hypoactive bowel sounds. PEG tube in place. 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 (Nae Obregon) Assessment and Plan Plan ASSESSMENT: - Left sided colitis. Pt admitted for sepsis, HCAP, UTI. CT Scan of the abdomen and pelvis with IV contrast (07/31/17) CT suggests mild left-sided colitis in the proper clinical setting. No obstruction, perforation, or abscess, thick-walled urinary bladder, Masters catheter present, right base infiltrate and small right tiny left pleural effusions. Of note, he does have a history of C. Difficile back in October of 2016 and was treated with Flagyl and Vanco. CDiff negative. D/W radiology, unable to reconstruct CT scan. + loose stool. WBC 10.9. HH . Cont. Abx. - Dysphagia. Gets pureed diet with supplemental feedings via peg at rehab center. Now with pna. Will get ST to evaluate for swallow evaluation and also have compressor repairer make recommendations for diet with supplemental nighttime feedings and just TF feedings. Now intubated. TF via PEG - Elevated transaminases, likely shocked liver. CT as above. Hepatitis profile negative. REINIER, AMA pending. ASMA negative. - CARMELITA. - Sepsis, HCAP, UTI. Azactam - Resp. Failure with pna. On vent. - Acute on chronic kidney dz. - Acute metabolic encephalopathy. lethargic, but answers questions/confused. ? baseline. - Dementia, Decubitus ulcer, HTN, BPH, CAD, PAD, Paroxysmal afib. per attending. PLAN: - Jevity 1.5 at 55cc/hr - Cont. Reglan - Monitor HH - Monitor LFTs - Await REINIER, AMA - Supportive care - Further recommendations to follow based on results of above Patient seen and examined by Dr. Soto and myself and this note is written on his behalf (Nae Obregon) Physician Comments Seen and examined with LUMP INSPECTOR, tolerating feedings. no active bleeding. (Pina Soto MD) Nae Obregon Aug 06, 2017 14:08 Pina Soto MD Aug 06, 2017 14:28
[2017-08-06] MEDS: DILTIAZEM HCL 30 MG TAB PO SCH ×2 (18:37)
[2017-08-06] MEDS: DONEPEZIL HCL 5 MG TAB PO SCH (22:18)
[2017-08-07] VITALS (21 sets, daily range): BP systolic 101–143; BP diastolic 52–65; PULSE 80–223; RESP 14–18; TEMP 97.7–99.1; O2SAT 0–99
[2017-08-07] MEDS: DONEPEZIL HCL 5 MG TAB PO SCH ×2 (04:15→21:00)
[2017-08-07] MEDS: IMIPENEM/CILASTATIN INJ 500 MG in SODIUM CHLORIDE 0.9% INJ 100 ML IV SCH ×3 (04:16→19:25)
[2017-08-07] MEDS: RESP: ALBUTEROL 2.5 MG/3 ML NEB (PRN) NEB (06:33)
[2017-08-07 06:47] LABS: AUTOMATED NEUTROPHIL # 10.5 TH/MM3 (1.8-7.7); BASOPHIL % 0.2 % (0.0-2.0); EOSINOPHIL # 0.3 TH/MM3 (0-0.4); EOSINOPHIL % 2.1 % (0.0-4.0); HEMATOCRIT 26.3 % (39.0-51.0); HEMO FLAGS DIFF FINAL; LYMPH % 11.7 % (9.0-44.0); LYMPHOCYTE # 1.5 TH/MM3 (1.0-4.8); MEAN CELL VOLUME 90.8 FL (80.0-100.0); MEAN CORPUSCULAR HEMOGLOBIN 28.6 PG (27.0-34.0); MEAN CORPUSCULAR HGB CONC 31.5 % (32.0-36.0); MONO % 4.3 % (0.0-8.0); NEUT % 81.7 % (16.0-70.0); PLATELET COUNT 234 TH/MM3 (150-450); RED BLOOD COUNT 2.89 MIL/MM3 (4.50-5.90); RED CELL DISTRIBUTION WIDTH 18.3 % (11.6-17.2); WHITE BLOOD COUNT 12.9 TH/MM3 (4.0-11.0)
[2017-08-07 07:15] LABS: BICARBONATE 26.5 MEQ/L (21.0-32.0); CALCIUM-PROTEIN CORRECTED 8.7 MG/DL (8.5-10.1); POTASSIUM 3.3 MEQ/L (3.5-5.1); TOTAL BILIRUBIN ADULT 0.5 MG/DL (0.2-1.0)
[2017-08-07] MEDS: ASCORBIC ACID 500 MG TAB PO SCH (09:00)
[2017-08-07] MEDS: ARTIFICIAL TEARS OPTH OINT 3.5 APPLIC/3.5 GM TUBO LEFT EYE SCH ×2 (09:00→21:00)
[2017-08-07] MEDS: FAMOTIDINE 20 MG/2 ML VIAL IV PUSH SCH ×2 (09:00→21:54)
[2017-08-07] MEDS: LACTOBACILLUS ACIDOPHILUS 1 GM PACKET PEG SCH ×3 (09:00→18:00)
[2017-08-07] MEDS: DOCUSATE SODIUM 50 MG/SENNA 8.6 MG TAB PO SCH ×2 (09:00→21:00)
[2017-08-07] MEDS: SODIUM CHLORIDE 0.9% IRRIGATION SCH ×2 (09:00→21:00)
[2017-08-07] MEDS: INSULIN ASPART SUPPLEMENTAL SCALE SQ SCH ×3 (09:15→21:15)
[2017-08-07] MEDS: FERROUS SULFATE 325 MG (65 MG ELEMENTAL IRON) TAB PO SCH ×3 (09:30→18:30)
[2017-08-07] MEDS ORDERED: Vancomycin Consult Pharmacy 1 EA OTHER SCH (10:15)
--- NOTE | 2017-08-07 10:48 | HHI.IDPN ---
Subjective Subjective Remarks Mr. Holguin is a 86 years old male with a past medical history of dementia, Parkinson's, PVD with left AKA, tobacco abuse, BPH, GERD, bed ridden with sacral decubitus ulcers, PEG and history of tracheostomy that was decannulated. Patient is on a pureed diet and gets supplemental bolus feeding via PEG. Apparently, patient vomited after receiving a bolus feed at the half-way and thereafter developed signs of respiratory distress. O2 saturation was in the low 70`s on room air. Patient was sent from the half-way to the emergency room due to tachypnea, elevated temperature and tachycardia. In ER, Tmax of 101.7 degrees F per rectum, heart rate 129. Patient was also hypotensive. Sepsis workup initiated. Laboratory workup revealed WBC 9.3, hemoglobin 12.7, hematocrit 39.9, platelet count 536, sodium 138, potassium 4.3 , BUN/creatinine 33/1.35, random glucose 99, lactic acid 8.1, AST 104, ALT for focal troponin 0.35, albumin 2.2, protein 7.7. Urine showed large leukocyte esterase, urine culture pending. Chest x-ray revealed possible right midlung infiltrate. CT abdomen/pelvis revealed mild left-sided colitis, no obstruction , perforation or abscess, right base infiltrate and small right tiny left pleural effusions. Patient was found to have acute kidney injury, RML and RLL pneumonia, and urinary tract infection. Patient was treated with vancomycin, aztreonam in the ER and 3L NS. Patient was admitted in ICU for further evaluation and treatment. ICU course complicated with increased respiratory distress and confusion. GI consulted for evaluation and treatment of left-sided colitis. Palliative care consulted to assist with clarifying goals of care. Per review of palliative care records it appears patient has had a decline since Oct this year with multiple hospitalizations. Patient has been residing at [facility] since 2014 and was able to transfer himself from bed to , feed himself and carry a simple conversation with his . Patient has been bedridden since he developed the sacral ulcer and totally dependent for all his ADLs. Patient has dementia and is oriented to self only. Blood cultures done on admission are positive for Kleb pneumo. ID consulted for Kleb pneumo bacteremia and Colitis. There is concern for Ischemic colitis given his vascular history. Cdiff is negative this admission and patient was not on any anti-cdiff treatment per records. Urine cultures are negative. There is concern for aspiration Pneumonia given the history from SNF. Overnight events reviewed. No fevers No rash No diarrhea Not on pressors. UO low. Not tolerating tube feeds. Antibiotics Azactam IV Flagyl oral. Lines Line sites with no e.o infection Past Medical History reviewed Allergies: Coded Allergies: Fish Containing Products (Unverified Allergy, Severe, 04/25/17) levofloxacin (Unverified Allergy, Severe, 04/25/17) lorazepam (Unverified Allergy, Severe, 04/25/17) morphine (Unverified Allergy, Severe, 04/25/17) penicillin G (Unverified Allergy, Severe, 04/25/17) sulfamethoxazole (Unverified Allergy, Severe, hives, 04/25/17) trimethoprim (Unverified Allergy, Severe, hives, 04/25/17) acetaminophen (Verified Allergy, Mild, ITCHING, 07/31/17) hydrocortisone (Unverified Allergy, Unknown, UNKNOWN, 04/25/17) Objective . Vital Signs Date Time Temp Pulse Resp B/P (MAP) Pulse Ox O2 Delivery O2 Flow Rate FiO2 08/07/17 10:18 94 50 08/07/17 07:12 98 50 08/07/17 06:00 107 08/07/17 04:19 94 35 08/07/17 04:00 94 08/07/17 04:00 35 08/07/17 04:00 99.1 94 18 110/56 (74) 95 08/07/17 02:00 94 08/07/17 01:02 96 35 08/07/17 00:00 223 08/07/17 00:00 35 08/07/17 00:00 99.0 98 16 114/57 (76) 98 08/06/17 22:00 95 08/06/17 20:38 100 35 08/06/17 20:00 35 08/06/17 20:00 98.9 98 24 113/55 (74) 96 08/06/17 20:00 95 08/06/17 19:35 103 08/06/17 19:30 107 08/06/17 19:25 109 08/06/17 19:20 107 08/06/17 19:15 107 08/06/17 19:10 113 08/06/17 19:05 108 08/06/17 19:00 115 08/06/17 18:55 109 08/06/17 18:50 110 08/06/17 18:45 109 08/06/17 18:40 103 08/06/17 18:35 101 08/06/17 18:30 109 08/06/17 18:25 100 08/06/17 18:20 95 08/06/17 18:15 107 08/06/17 18:10 101 08/06/17 18:05 107 08/06/17 18:00 104 08/06/17 17:35 98.6 106 11 117/53 (74) 96 08/06/17 17:35 106 08/06/17 17:30 111 08/06/17 17:30 98.4 111 13 111/53 (72) 96 08/06/17 17:25 102 08/06/17 17:25 98.4 102 12 123/55 (77) 96 08/06/17 17:20 105 08/06/17 17:20 98.4 105 12 113/54 (73) 96 08/06/17 17:15 105 08/06/17 17:15 98.4 105 13 111/53 (72) 96 08/06/17 17:10 103 08/06/17 17:10 98.4 103 12 107/51 (69) 96 08/06/17 17:05 103 08/06/17 17:05 98.4 103 12 111/53 (72) 97 08/06/17 17:00 113 08/06/17 17:00 98.4 113 12 119/53 (75) 96 08/06/17 16:55 98.4 109 15 105/52 (69) 97 08/06/17 16:55 109 08/06/17 16:50 104 08/06/17 16:50 98.4 104 11 100/49 (66) 96 08/06/17 16:45 104 08/06/17 16:45 98.4 104 12 98/49 (65) 96 08/06/17 16:40 98.4 104 11 97/49 (65) 96 08/06/17 16:40 104 08/06/17 16:35 98.4 103 12 97/53 (68) 96 08/06/17 16:35 103 08/06/17 16:30 103 08/06/17 16:30 98.4 103 14 113/53 (73) 96 08/06/17 16:25 111 08/06/17 16:25 98.4 111 12 108/51 (70) 95 08/06/17 16:20 110 08/06/17 16:20 98.4 110 12 112/49 (70) 95 08/06/17 16:15 98.4 111 12 113/53 (73) 96 08/06/17 16:15 111 08/06/17 16:10 118 08/06/17 16:10 98.4 118 12 119/55 (76) 95 08/06/17 16:05 107 08/06/17 16:05 98.4 107 12 116/56 (76) 95 08/06/17 16:00 94 35 08/06/17 16:00 118 08/06/17 16:00 98.2 118 13 115/58 (77) 94 08/06/17 16:00 35 08/06/17 15:36 129 08/06/17 15:30 95 08/06/17 15:25 96 08/06/17 15:20 97 08/06/17 15:15 97 08/06/17 15:10 96 08/06/17 15:05 97 08/06/17 15:00 90 08/06/17 14:55 90 08/06/17 14:50 90 08/06/17 14:45 91 08/06/17 14:40 93 08/06/17 14:35 90 08/06/17 14:30 92 08/06/17 14:25 89 08/06/17 14:20 89 08/06/17 14:15 135 08/06/17 14:10 109 08/06/17 14:05 113 08/06/17 14:00 116 08/06/17 13:30 98.2 114 11 104/64 (77) 98 08/06/17 13:25 98.2 109 10 93/54 (67) 100 08/06/17 13:25 109 08/06/17 13:20 110 08/06/17 13:20 98.2 110 11 110/54 (72) 99 08/06/17 13:15 117 08/06/17 13:15 98.2 117 10 93/51 (65) 99 08/06/17 13:10 112 08/06/17 13:10 98.2 112 10 97/48 (64) 99 08/06/17 13:05 118 08/06/17 13:05 98.2 118 11 112/52 (72) 99 08/06/17 13:04 115 08/06/17 13:04 98.2 115 11 100/54 (69) 99 08/06/17 13:00 111 08/06/17 13:00 98.2 111 11 93/47 (62) 98 08/06/17 12:55 116 08/06/17 12:55 98.2 116 11 112/50 (70) 97 08/06/17 12:50 118 08/06/17 12:50 98.2 118 9 107/51 (69) 97 08/06/17 12:45 98.2 119 11 110/51 (70) 97 08/06/17 12:45 119 08/06/17 12:41 98 35 08/06/17 12:40 98.2 113 11 97/45 (62) 99 08/06/17 12:40 113 08/06/17 12:35 118 08/06/17 12:35 98.2 118 10 103/50 (67) 97 08/06/17 12:30 115 08/06/17 12:30 98.2 115 11 94/52 (66) 98 08/06/17 12:25 112 08/06/17 12:25 98.2 112 11 100/49 (66) 98 08/06/17 12:20 98.2 114 10 102/47 (65) 99 08/06/17 12:20 114 08/06/17 12:15 98.2 117 10 101/49 (66) 99 08/06/17 12:15 117 08/06/17 12:10 113 08/06/17 12:10 98.2 113 10 107/53 (71) 98 08/06/17 12:05 115 08/06/17 12:05 98.2 115 11 113/54 (73) 99 08/06/17 12:00 35 08/06/17 12:00 98.1 117 10 90/52 (65) 100 08/06/17 12:00 117 08/06/17 11:30 114 08/06/17 11:25 123 08/06/17 11:20 121 08/06/17 11:15 119 08/06/17 11:10 116 08/06/17 11:05 115 08/06/17 11:01 115 08/06/17 11:00 121 08/06/17 10:55 109 08/06/17 10:50 110 08/06/17 10:45 125 . Laboratory Tests Test 08/06/17 07:15 08/07/17 05:00 White Blood Count 10.9 TH/MM3 12.9 TH/MM3 Red Blood Count 2.54 MIL/MM3 2.89 MIL/MM3 Hemoglobin 7.6 GM/DL 8.3 GM/DL Hematocrit 23.0 % 26.3 % Mean Corpuscular Volume 90.5 FL 90.8 FL Mean Corpuscular Hemoglobin 30.0 PG 28.6 PG Mean Corpuscular Hemoglobin Concent 33.1 % 31.5 % Red Cell Distribution Width 17.9 % 18.3 % Platelet Count 204 TH/MM3 234 TH/MM3 Mean Platelet Volume 8.6 FL 8.5 FL Neutrophils (%) (Auto) 81.7 % Lymphocytes (%) (Auto) 11.7 % Monocytes (%) (Auto) 4.3 % Eosinophils (%) (Auto) 2.1 % Basophils (%) (Auto) 0.2 % Neutrophils # (Auto) 10.5 TH/MM3 Lymphocytes # (Auto) 1.5 TH/MM3 Monocytes # (Auto) 0.6 TH/MM3 Eosinophils # (Auto) 0.3 TH/MM3 Basophils # (Auto) 0.0 TH/MM3 CBC Comment DIFF FINAL Differential Comment Laboratory Tests Test 08/06/17 07:15 08/07/17 05:00 Blood Urea Nitrogen 39 MG/DL 32 MG/DL Creatinine 0.86 MG/DL 0.65 MG/DL Random Glucose 102 MG/DL 62 MG/DL Total Protein 4.5 GM/DL 4.7 GM/DL Albumin 1.0 GM/DL 1.0 GM/DL Calcium Level 7.2 MG/DL 7.3 MG/DL Alkaline Phosphatase 97 U/L 99 U/L Aspartate Amino Transf (AST/SGOT) 72 U/L 51 U/L Alanine Aminotransferase (ALT/SGPT) 136 U/L 101 U/L Total Bilirubin 0.4 MG/DL 0.5 MG/DL Sodium Level 145 MEQ/L 146 MEQ/L Potassium Level 3.5 MEQ/L 3.3 MEQ/L Chloride Level 111 MEQ/L 111 MEQ/L Carbon Dioxide Level 24.8 MEQ/L 26.5 MEQ/L Anion Gap 9 MEQ/L 9 MEQ/L Estimat Glomerular Filtration Rate 84 ML/MIN 116 ML/MIN Protein Corrected Calcium 8.7 MG/DL 8.7 MG/DL Magnesium Level 2.0 MG/DL Microbiology Date/Time Source Procedure Growth Status 08/06/17 06:45 Blood Peripheral Aerobic Blood Culture Pending Received 08/06/17 06:45 Blood Peripheral Anaerobic Blood Culture Pending Received 08/06/17 05:41 Blood Peripheral Aerobic Blood Culture Pending Received 08/06/17 05:41 Blood Peripheral Anaerobic Blood Culture Pending Received Imaging Last Impressions Chest X-Ray 08/03/17 0600 Signed Impressions: Service Date/Time: July 04:07 - CONCLUSION: No significant change. Patchy diffuse airspace disease of both lungs. Arvind Márquez MD Abdomen/Pelvis CT 07/31/17 0000 Signed Impressions: Service Date/Time: Monday, July 31, 2017 22:53 - CONCLUSION: 1. CT suggests mild left-sided colitis in the proper clinical setting. No obstruction , perforation or abscess. 2. Thick waledl urinary bladder. Masters catheter present. 3. Right base infiltrate and small right, tiny left pleural effusions. 1. Arvind Márquez MD Physical Exam GENERAL: This is a well-nourished, well-developed patient, in no apparent distress. SKIN: No rashes, ecchymoses or lesions. Cool and dry. HEAD: Atraumatic. Normocephalic. No temporal or scalp tenderness. EYES: Pupils equal round and reactive. Extraocular motions intact. No scleral icterus. No injection or drainage. ENT: Intubated. NECK: Trachea midline. Supple, nontender, no meningeal signs. CARDIOVASCULAR: Regular rate and rhythm without murmurs, gallops, or rubs. RESPIRATORY: Clear to auscultation. Breath sounds equal bilaterally. No wheezes , rales, or rhonchi. GASTROINTESTINAL: Abdomen soft, non-tender, nondistended. MUSCULOSKELETAL: Left LE ulcer on stump with clean margins no erythema. Bone spur protruding from skin. Multiple decubs as per wound care/RN notes. Reviewed with the RN. NEUROLOGICAL: Sedated Psych could not be assessed IV line sites with no e.o infection Assessment & Plan Remarks Sepsis Kleb pneumo Bacteremia Bacillus not anthracis bacteremia positive on 2 separate days r/o endocarditis. 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 Acute resp failure Acute metabolic encephalopathy: baseline dementia and parkinsons. Sepsis contributing factor. 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 Cdiff negative. ESBL in sacral wound ? colonization as clinically responding to current ABX with no fevers. vitals ok not on pressors. Recs Continue Imipenem (will cover ESBL as well as Bacillus 2nd line agent) Start Dapto IV (VRE in sacral cultures, area concerning for Sacral osteomyelitis ) 2D ECHO today to rule out endocarditis. MRI with and without contrast of Sacrum. d.w Palliative care: I wanted to meet patients to show her the sacral decub and also discuss the multiple cultures positive and sites of infection. She reports she is aware. Will wait for palliative care to let me know when my input is required. Check baseline CK and monitor once a week. Follow cultures Follow clinically dw [facility] Yarely Pace MD Aug 07, 2017 10:48
--- NOTE | 2017-08-07 11:28 | HHI.HCPN ---
Reason for visit a. To assist with evaluation and management of symptoms including: shortness of breath, dysphagia, debility b. To assist medical decision maker(s) with: better understanding of current medical conditions; weighing benefits/burdens of medical treatment options; making medical treatment decisions. Subjective/Interval History Mr. Holguin is a 86 years old male with a past medical history of dementia, Parkinson's, PVD with left AKA, tobacco abuse, BPH, GERD, bed ridden with sacral decubitus ulcers, PEG and history of tracheostomy that was decannulated. Patient is on a pureed diet and gets supplemental bolus feeding via PEG. Apparently, patient vomited after receiving a bolus feed at the care home and thereafter developed signs of respiratory distress. O2 saturation was in the low 70`s on room air. Patient was sent from the care home to the emergency room due to tachypnea, elevated temperature and tachycardia. In ER, Tmax of 101.7 degrees F per rectum, heart rate 129. Patient was also hypotensive. I&D of left AKA performed at bedside on 08/04/[address] Hart ([facility]). He also went into A. fib with RVR on 08/05/17 and was treated with one dose of digoxin 0.25 IV, magnesium replaced. EEG done on 08/05/17 revealed abnormal study consistent with a diffuse encephalopathy. Patient seen in his room, remains intubated on mechanical ventilation. Eyes open , patient not following commands. Patient on a bicarbonate infusion @ 75ml/hr and fentanyl infusion @50mcg/hr. Ventilator settings AC14/550/7/50%, O2 saturation in the low 90s. Patient required increased FiO2 from 35% to 50%. Per nursing staff, PEG tube currently clamped, tube feeds on hold as of last night due to leaking around PEG tube. Tmax 99.1, SBP low 100s. Laboratory workup revealing WBC 12.9, hemoglobin 8.3, hematocrit 26.3, platelet count 234, sodium 146, potassium 3.3, BUN/creatinine 32/0.65, random glucose 62, AST 51, ALT 101, total protein 4.7, albumin 1.0. Echo 2-D ordered to rule out possible endocarditis. Patient has persistent bacteremia. MRI sacrum today to rule out sacral osteomyelitis. Case discussed with Dr. Ai Bowman and bedside IVIS Dorman. 1130hrs Telephone conversation with patient`s . Updated her on patient`s medical status, inclusive of diagnostic tests ordered, possibility of tracheostomy placement sometime this week. Patient`s stated that patient did well on CPAP yesterday. Notified her that per nursing, last night patient became tachycardic and sats dropped requiring patient to be placed back on AC and increasing of FIO2 to 50%. Patient`s thinks Fentanyl is causing patient `s heart rate to go up. . Family/friend interactions Telephone conversation with patient`s . . Advance Directives Living Will: Copy in medical record Health Care Surrogate: Copy in medical record Advance Directive Specifics Date completed: 08/05/2012 . Health Care Surrogate(s): Spouse- HCS- Ally Ramesh . Documented care wishes: Standard verbiage. Form scanned into EMR . Objective Vital Signs Date Time Temp Pulse Resp B/P (MAP) Pulse Ox O2 Delivery O2 Flow Rate FiO2 08/07/17 10:18 94 50 08/07/17 07:12 98 50 08/07/17 06:00 107 08/07/17 04:19 94 35 08/07/17 04:00 94 08/07/17 04:00 35 08/07/17 04:00 99.1 94 18 110/56 (74) 95 08/07/17 02:00 94 08/07/17 01:02 96 35 08/07/17 00:00 223 08/07/17 00:00 35 08/07/17 00:00 99.0 98 16 114/57 (76) 98 08/06/17 22:00 95 08/06/17 20:38 100 35 08/06/17 20:00 35 08/06/17 20:00 98.9 98 24 113/55 (74) 96 08/06/17 20:00 95 08/06/17 19:35 103 08/06/17 19:30 107 08/06/17 19:25 109 08/06/17 19:20 107 08/06/17 19:15 107 08/06/17 19:10 113 08/06/17 19:05 108 08/06/17 19:00 115 08/06/17 18:55 109 08/06/17 18:50 110 08/06/17 18:45 109 08/06/17 18:40 103 08/06/17 18:35 101 08/06/17 18:30 109 08/06/17 18:25 100 08/06/17 18:20 95 08/06/17 18:15 107 08/06/17 18:10 101 08/06/17 18:05 107 08/06/17 18:00 104 08/06/17 17:35 98.6 106 11 117/53 (74) 96 08/06/17 17:35 106 08/06/17 17:30 111 08/06/17 17:30 98.4 111 13 111/53 (72) 96 08/06/17 17:25 102 08/06/17 17:25 98.4 102 12 123/55 (77) 96 08/06/17 17:20 105 08/06/17 17:20 98.4 105 12 113/54 (73) 96 08/06/17 17:15 105 08/06/17 17:15 98.4 105 13 111/53 (72) 96 08/06/17 17:10 103 08/06/17 17:10 98.4 103 12 107/51 (69) 96 08/06/17 17:05 103 08/06/17 17:05 98.4 103 12 111/53 (72) 97 08/06/17 17:00 113 08/06/17 17:00 98.4 113 12 119/53 (75) 96 08/06/17 16:55 98.4 109 15 105/52 (69) 97 08/06/17 16:55 109 08/06/17 16:50 104 08/06/17 16:50 98.4 104 11 100/49 (66) 96 08/06/17 16:45 104 08/06/17 16:45 98.4 104 12 98/49 (65) 96 08/06/17 16:40 98.4 104 11 97/49 (65) 96 08/06/17 16:40 104 08/06/17 16:35 98.4 103 12 97/53 (68) 96 08/06/17 16:35 103 08/06/17 16:30 103 08/06/17 16:30 98.4 103 14 113/53 (73) 96 17 16:25 111 08/06/17 16:25 98.4 111 12 108/51 (70) 95 08/06/17 16:20 110 08/06/17 16:20 98.4 110 12 112/49 (70) 95 08/06/17 16:15 98.4 111 12 113/53 (73) 96 08/06/17 16:15 111 08/06/17 16:10 118 08/06/17 16:10 98.4 118 12 119/55 (76) 95 08/06/17 16:05 107 08/06/17 16:05 98.4 107 12 116/56 (76) 95 08/06/17 16:00 94 35 08/06/17 16:00 118 08/06/17 16:00 98.2 118 13 115/58 (77) 94 08/06/17 16:00 35 08/06/17 15:36 129 08/06/17 15:30 95 08/06/17 15:25 96 08/06/17 15:20 97 08/06/17 15:15 97 08/06/17 15:10 96 08/06/17 15:05 97 08/06/17 15:00 90 08/06/17 14:55 90 08/06/17 14:50 90 08/06/17 14:45 91 08/06/17 14:40 93 08/06/17 14:35 90 08/06/17 14:30 92 08/06/17 14:25 89 08/06/17 14:20 89 08/06/17 14:15 135 08/06/17 14:10 109 08/06/17 14:05 113 08/06/17 14:00 116 08/06/17 13:30 98.2 114 11 104/64 (77) 98 08/06/17 13:25 98.2 109 10 93/54 (67) 100 08/06/17 13:25 109 08/06/17 13:20 110 08/06/17 13:20 98.2 110 11 110/54 (72) 99 08/06/17 13:15 117 08/06/17 13:15 98.2 117 10 93/51 (65) 99 08/06/17 13:10 112 08/06/17 13:10 98.2 112 10 97/48 (64) 99 08/06/17 13:05 118 08/06/17 13:05 98.2 118 11 112/52 (72) 99 08/06/17 13:04 115 08/06/17 13:04 98.2 115 11 100/54 (69) 99 08/06/17 13:00 111 08/06/17 13:00 98.2 111 11 93/47 (62) 98 08/06/17 12:55 116 08/06/17 12:55 98.2 116 11 112/50 (70) 97 08/06/17 12:50 118 08/06/17 12:50 98.2 118 9 107/51 (69) 97 08/06/17 12:45 98.2 119 11 110/51 (70) 97 08/06/17 12:45 119 08/06/17 12:41 98 35 08/06/17 12:40 98.2 113 11 97/45 (62) 99 08/06/17 12:40 113 08/06/17 12:35 118 08/06/17 12:35 98.2 118 10 103/50 (67) 97 08/06/17 12:30 115 08/06/17 12:30 98.2 115 11 94/52 (66) 98 08/06/17 12:25 112 08/06/17 12:25 98.2 112 11 100/49 (66) 98 08/06/17 12:20 98.2 114 10 102/47 (65) 99 08/06/17 12:20 114 08/06/17 12:15 98.2 117 10 101/49 (66) 99 08/06/17 12:15 117 08/06/17 12:10 113 08/06/17 12:10 98.2 113 10 107/53 (71) 98 08/06/17 12:05 115 08/06/17 12:05 98.2 115 11 113/54 (73) 99 08/06/17 12:00 35 08/06/17 12:00 98.1 117 10 90/52 (65) 100 08/06/17 12:00 117 08/06/17 11:30 114 08/06/17 11:25 123 08/06/17 11:20 121 08/06/17 11:15 119 08/06/17 11:10 116 08/06/17 11:05 115 08/06/17 11:01 115 08/06/17 11:00 121 Intake & Output 08/07/17 08/07/17 07:00 19:00 Intake Total 1252 ml Output Total 450 ml Balance 802 ml IV Total 1252 ml Output Urine Total 450 ml Physical Exam CONSTITUTIONAL/GENERAL: This is an elderly, ill looking patient, lethargic, eyes open intubated on mechanical ventilation. On Fentanyl at 50mcg/hr TUBES/LINES/DRAINS: TLC, PIV, FC, ETT SKIN: No jaundice, rashes, or lesions. Ecchymoses on upper extremities. Stage II left trochanter ulcer and Stage III coccyx ulcer per EMR. Noted x2 intact dsgs to right foot and wound to right inner ankle open to a and left stump. Skin temperature appropriate. Not diaphoretic. HEAD: Atraumatic. Normocephalic. EYES: Pupils equal and round and reactive. Extraocular motions intact. No scleral icterus. No injection or drainage. Fundi not examined. ENT: . Nose without bleeding or purulent drainage. Moist oral mucosa. ETT in place NECK: Trachea midline. Supple, nontender. CARDIOVASCULAR: HR low 90s-irregular. No murmurs, gallops, or rubs. No JVD. Peripheral pulses symmetric-L AKA. RESPIRATORY/CHEST: Symmetric . Lungs rhonchi to auscultation. Diminished breath sounds equal bilaterally. Intubated on mechanical ventilation. GASTROINTESTINAL: Abdomen soft, non-tender, nondistended. No palpable masses. Bowel sounds present. PEG tube currently clamped GENITOURINARY: Without palpable bladder distension. Masters catheter in place. MUSCULOSKELETAL: Extremities without clubbing, cyanosis, or edema. No mottling or clubbing. L AKA. Contracture to RLE. NEUROLOGICAL: Awake, lethargic, sedated, intubated on mechanical ventilation. PSYCHIATRIC: Calm. Intubated on mechanical ventilation. . Diagnostic Tests Laboratory Laboratory Tests Test 08/04/17 23:50 08/05/17 03:30 08/06/17 07:15 08/07/17 05:00 Potassium Level 4.5 MEQ/L (3.5-5.1) 4.4 MEQ/L (3.5-5.1) 3.5 MEQ/L (3.5-5.1) 3.3 MEQ/L (3.5-5.1) White Blood Count 12.7 TH/MM3 (4.0-11.0) 10.9 TH/MM3 (4.0-11.0) 12.9 TH/MM3 (4.0-11.0) Red Blood Count 2.78 MIL/MM3 (4.50-5.90) 2.54 MIL/MM3 (4.50-5.90) 2.89 MIL/MM3 (4.50-5.90) Hemoglobin 8.1 GM/DL (13.0-17.0) 7.6 GM/DL (13.0-17.0) 8.3 GM/DL (13.0-17.0) Hematocrit 25.2 % (39.0-51.0) 23.0 % (39.0-51.0) 26.3 % (39.0-51.0) Mean Corpuscular Volume 90.6 FL (80.0-100.0) 90.5 FL (80.0-100.0) 90.8 FL (80.0-100.0) Mean Corpuscular Hemoglobin 29.1 PG (27.0-34.0) 30.0 PG (27.0-34.0) 28.6 PG (27.0-34.0) Mean Corpuscular Hemoglobin Concent 32.1 % (32.0-36.0) 33.1 % (32.0-36.0) 31.5 % (32.0-36.0) Red Cell Distribution Width 18.4 % (11.6-17.2) 17.9 % (11.6-17.2) 18.3 % (11.6-17.2) Platelet Count 281 TH/MM3 (150-450) 204 TH/MM3 (150-450) 234 TH/MM3 (150-450) Mean Platelet Volume 8.4 FL (7.0-11.0) 8.6 FL (7.0-11.0) 8.5 FL (7.0-11.0) Neutrophils (%) (Auto) 85.2 % (16.0-70.0) 81.7 % (16.0-70.0) Lymphocytes (%) (Auto) 7.0 % (9.0-44.0) 11.7 % (9.0-44.0) Monocytes (%) (Auto) 5.6 % (0.0-8.0) 4.3 % (0.0-8.0) Eosinophils (%) (Auto) 1.8 % (0.0-4.0) 2.1 % (0.0-4.0) Basophils (%) (Auto) 0.4 % (0.0-2.0) 0.2 % (0.0-2.0) Neutrophils # (Auto) 10.9 TH/MM3 (1.8-7.7) 10.5 TH/MM3 (1.8-7.7) Lymphocytes # (Auto) 0.9 TH/MM3 (1.0-4.8) 1.5 TH/MM3 (1.0-4.8) Monocytes # (Auto) 0.7 TH/MM3 (0-0.9) 0.6 TH/MM3 (0-0.9) Eosinophils # (Auto) 0.2 TH/MM3 (0-0.4) 0.3 TH/MM3 (0-0.4) Basophils # (Auto) 0.0 TH/MM3 (0-0.2) 0.0 TH/MM3 (0-0.2) CBC Comment AUTO DIFF DIFF FINAL Differential Total Cells Counted 100 Neutrophils % (Manual) 88 % (16-70) Band Neutrophils % 5 % (0-6) Lymphocytes % 3 % (9-44) Monocytes % 3 % (0-8) Neutrophils # (Manual) 11.9 TH/MM3 (1.8-7.7) Metamyelocytes 1 % (0-1) Differential Comment FINAL DIFF MANUAL Platelet Estimate NORMAL (NORMAL) Platelet Morphology Comment NORMAL (NORMAL) Blood Urea Nitrogen 44 MG/DL (7-18) 39 MG/DL (7-18) 32 MG/DL (7-18) Creatinine 0.97 MG/DL (0.60-1.30) 0.86 MG/DL (0.60-1.30) 0.65 MG/DL (0.60-1.30) Random Glucose 55 MG/DL (74-106) 102 MG/DL (74-106) 62 MG/DL (74-106) Total Protein 5.1 GM/DL (6.4-8.2) 4.5 GM/DL (6.4-8.2) 4.7 GM/DL (6.4-8.2) Albumin 1.3 GM/DL (3.4-5.0) 1.0 GM/DL (3.4-5.0) 1.0 GM/DL (3.4-5.0) Calcium Level 7.4 MG/DL (8.5-10.1) 7.2 MG/DL (8.5-10.1) 7.3 MG/DL (8.5-10.1) Phosphorus Level 2.5 MG/DL (2.5-4.9) Magnesium Level 1.6 MG/DL (1.5-2.5) 2.0 MG/DL (1.5-2.5) Alkaline Phosphatase 114 U/L (45-117) 97 U/L (45-117) 99 U/L (45-117) Aspartate Amino Transf (AST/SGOT) 119 U/L (15-37) 72 U/L (15-37) 51 U/L (15-37) Alanine Aminotransferase (ALT/SGPT) 232 U/L (12-78) 136 U/L (12-78) 101 U/L (12-78) Total Bilirubin 0.3 MG/DL (0.2-1.0) 0.4 MG/DL (0.2-1.0) 0.5 MG/DL (0.2-1.0) Direct Bilirubin 0.1 MG/DL (0.0-0.2) Sodium Level 144 MEQ/L (136-145) 145 MEQ/L (136-145) 146 MEQ/L (136-145) Chloride Level 112 MEQ/L (98-107) 111 MEQ/L (98-107) 111 MEQ/L (98-107) Carbon Dioxide Level 23.3 MEQ/L (21.0-32.0) 24.8 MEQ/L (21.0-32.0) 26.5 MEQ/L (21.0-32.0) Anion Gap 9 MEQ/L (5-15) 9 MEQ/L (5-15) 9 MEQ/L (5-15) Estimat Glomerular Filtration Rate 73 ML/MIN (>89) 84 ML/MIN (>89) 116 ML/MIN (>89) Protein Corrected Calcium 8.5 MG/DL (8.5-10.1) 8.7 MG/DL (8.5-10.1) 8.7 MG/DL (8.5-10.1) Indirect Bilirubin 0.2 MG/DL (0.0-0.8) Result Diagram: 08/07/17 0500 08/07/17 0500 Microbiology Microbiology Date/Time Source Procedure Growth Status 08/06/17 06:45 Blood Peripheral Aerobic Blood Culture Pending Received 08/06/17 06:45 Blood Peripheral Anaerobic Blood Culture Pending Received 08/06/17 05:41 Blood Peripheral Aerobic Blood Culture Pending Received 08/06/17 05:41 Blood Peripheral Anaerobic Blood Culture Pending Received Procedures 08/01/2017- Central line placement -R Subclavian 08/02/2017- Intubation 08/04/2017- I&D to Renetta YAN . Assessment and Plan Disease Oriented Problem List: (1) HCAP (healthcare-associated pneumonia) (2) Bfbjg-lv-iylycsi kidney injury (3) UTI (urinary tract infection) (4) CKD (chronic kidney disease), stage III (5) Decubital ulcer (6) Alzheimer's dementia (7) HTN (hypertension) (8) CAD (coronary artery disease) Symptom Scale: (1) Shortness of breath 0-10 Scale: Unable to quantify Comment: Multifactorial. Presented with tachypnea, O2 saturation in the 70s. Chest x-ray showing RML, RLL pneumonia. . (2) Debility 0-10 Scale: Unable to quantify Comment: Patient is currently bedridden. . (3) Dysphagia 0-10 Scale: Unable to quantify Comment: Patient currently has a PEG tube, placed in October 2016. Patient was on pured diet and receives supplemental bolus feeds via PEG depending on his mental percentage. . Pertinent Non-Medical Issues Psychosocial:Patient was born and raised in [place], [place]. Patient has been twice and is currently to his second of 52 years. Patient has 3 adult children, 2 from his first marriage and 1 son from his current marriage. 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 Spiritual:- stated that they are spiritual and not tenriism. Legal: Patient has a signed HCS- copy scanned and a Living Will (As stated by -Will bring in Copy) Ethical issues impacting care: None at this time . Important Contacts Spouse- Latosha Ramesh Son- Saulo Garcia [phone] . Prognosis Mr. Holguin is a 86 years old male with a past medical history of dementia, subdural hematoma, Parkinson's, PVD with left AKA, tobacco abuse, BPH, GERD, bed ridden with sacral decubitus ulcers, PEG and history of tracheostomy that was decannulated. Patient was sent from the care home to the emergency room due to tachypnea, elevated temperature and tachycardia, vomiting. In ER, Tmax of 101.7 degrees F per rectum, heart rate 129. Patient was also hypotensive. Patient was found to have acute kidney injury, RML and RLL pneumonia, and urinary tract infection.Given ongoing multiple comorbidities and current problems, patient remains at high risk for further complications, deterioration and decline. . Code Status: Full Code Plan PLAN: Legal decision maker: Patient has a history of dementia and demonstrates inability to make his own medical decisions. Patient has a designated HCS who is his Ally Ramesh. Goals: 08/07/17 Remain Aggressive. CODE STATUS: Full Code SYMPTOMS: * Shortness of breath: Multifactorial. Presented with tachypnea, O2 saturation in the 70s on admission. Chest x-ray showing RML, RLL pneumonia. Patient was started on antibiotics. Patient's respiratory status declining, increased work of breathing. Chest x-ray today showing worsening bilateral airspace opacities. Patient intubated on mechanical ventilation, FIO2 50%. O2 saturation currently high 90s. Patient on Albuterol Sulfate 2.5 mg Q 2hrs prn. Patient on a bicarbonate continuos infusion-75ml/hr. * Dysphagia: Patient has PEG tube. Was receiving bolus feeds and pureed diet at SNF. May benefit from risk and insurance manager consult. Now has pneumonia. Currently NPO. PEG tube currently clamped, tube feeds on hold as of last night due to leaking around PEG tube. Patient`s weight on Nov 01 2016=75.9kg , August 01, 2017= 65kg. 08/07/17 Total protein 4.7 , albumin 1.0. * Debility: Progressive. Patient is currently bedridden, with dementia, Parkinson's, PVD with left AKA and sacral decubitus ulcers. Patient may not be able to effectively participate in physical therapy given ongoing comorbidities. Patient is at high risk for further deterioration. Patient`s weight on Nov 01 2016=75.9kg , August 01, 2017=65kg. Palliative care will continue to follow the patient during hospital course as condition evolves, to assist patient/decision-maker with understanding of their medical conditions, weighing benefits/burdens of treatment options, for clarification of goals of treatment. Additionally will assist with any symptoms of palliative concern. . Attestation To help prompt me to consider important information that might be impacting today's encounter and assessment, information from prior notes written by myself or my colleagues may have been "brought forward" into today's note. My signature on this note, however, is an attestation that I personally performed the exam, history, and/or decision-making noted today, and, unless otherwise indicated, the interactions with patient, family, and staff as well as the review of records all occurred today. I also attest that the listed assessment and stated plan reflect my best clinical judgment today based on the combination of historical information, prior notes, and today's exam/ interactions. When time spent is documented, it refers only to time spent today by the signer, or if indicated, combined time spent today by collaborating physician/nurse practitioner. . Juliano Lawrence Aug 07, 2017 11:28
[2017-08-07 11:44] LABS: ANA SCREEN NEG (NEG)
[2017-08-07] MEDS: DILTIAZEM HCL 30 MG TAB PO SCH ×2 (12:00→18:00)
--- NOTE | 2017-08-07 12:20 | HHI.CCPN ---
Subjective Remarks/Hospital Course 86-year-old male with past medical history of dementia, Parkinson's, bedridden, sacral decubitus ulcers, PAD with left AKA, tobacco abuse, BPH, GERD , PEG, prior tracheostomy that has subsequently been decannulated who presents to [facility] emergency department with respiratory distress. He is on a pured diet and gets supplemental bolus feeds at mealtime depending on how much that he takes by mouth. Today he did not have very much appetite, did not eat much, received a bolus feed. He then had an episode of vomiting and subsequently had tachypnea. He desaturated into the 70s on room air. He was placed on supplemental oxygen. He had rigors and fever and therefore was brought to [facility] emergency Department was where she was found to be in septic shock with multiorgan dysfunction. He has right middle lobe and right lower lobe pneumonia and urinary tract infection. Temperature is 100.6. Blood pressure is 82/49 with a lactic acid of 8.1. He is in acute kidney injury with creatinine 1.35. He has not had any diarrhea. He denies abdominal pain but has voluntary guarding on exam. (History from him is almost non existent, this is based on verbal and nonverbal cues interpreted by his ) He received vancomycin and aztreonam in the emergency department. He has received 3 L normal saline bolus. Hospitalized at [facility] in October 2016 with C. difficile and HCAP with respiratory failure. He was intubated and extubated several times and ultimately underwent tracheostomy 11/15/16 and PEG. He was recently hospitalized at [facility] 1-1/2 months ago related to infection of his sacral wound which has had multiple debridements. Reportedly has recently been on antibiotics for UTI. denies known ho MDRO. Subjective: 08/01: Tmax 99.1. Patient alert to name only, denies pain. O2 requirements decreased currently on Ventimask at 40%. Patient having multiple loose bowel movements, C. difficile PCR pending. 08/02: Afebrile. Patient noted to have increasing O2 requirements this a.m. , chest x-ray shows worsening opacities now with leukocytosis and bandemia. Patient noted to have gram-negative bacteremia. Patient currently on atrezonam and metronidazole. ID consulted appreciate recommendations. CDiff PCR noted to be negative. Today afternoon the patient was noted to go into atrial fibrillation with a heart rate in the 140s-160s was placed on a Cardizem infusion ,now rate is controlled will be transitioned to PO Cardizem. Metabolic acidosis slightly improved sodium bicarbonate drip decreased to 30 cc/hour. Plan for revision of left AKA stump this a.m. at the bedside with Dr. Connelly, under local anesthesia. 08/03: Afebrile. Patient was placed on tube feeds at 55 cc/an hour, did not tolerate, large residuals. Patient was placed on metoclopramide per GI, and tube feeds now placed on hold. The patient continues on fentanyl infusion baseline neurological status as previously noted. Decreasing oxygen requirements, currently on 35% FiO2. Blood cultures revealed variable gram- negative rods. Discussed with ID tentative plan for revision of AKA, per Dr. Bowman due to the recent results of gram-negative variable rods recommendation not to perform revision at this time. Planned to perform revision after negative blood cultures obtained and 2 or 3 days have elapsed. 08/04: Afebrile. No acute events overnight. The patient continues to have persistent leukocytosis. ID following. 08/05: Patient went into A. fib RVR this afternoon, given 1 dose of digoxin 0.25 IV. Patient was noted to have a low magnesium level and magnesium being replaced. WBC count slightly improved. Last night orthopedics came in and performed I&D the bedside. 08/06: Remains sedated, orally intubated on mechanical ventilation. 08/07: Remains sedated, orally intubated on mechanical ventilation. Objective Vital Signs Date Time Temp Pulse Resp B/P (MAP) Pulse Ox O2 Delivery O2 Flow Rate FiO2 08/07/17 10:18 94 50 08/07/17 06:00 107 08/07/17 04:00 99.1 18 110/56 (74) 08/03/17 07:00 Mechanical Ventilator Intake and Output 08/07/17 08/07/17 08/08/17 08:00 16:00 00:00 Intake Total 1252 ml Output Total 450 ml Balance 802 ml Result Diagram: 08/07/17 0500 08/07/17 0500 Imaging Last Impressions Chest X-Ray 07/31/17 4256 Signed Impressions: Service Date/Time: Monday, July 31, 2017 19:04 - CONCLUSION: Possible right midlung infiltrate. Recommend followup films. Aneudy Wong MD Abdomen/Pelvis CT 07/31/17 0000 Signed Impressions: Service Date/Time: Monday, July 31, 2017 22:53 - CONCLUSION: 1. CT suggests mild left-sided colitis in the proper clinical setting. No obstruction , perforation or abscess. 2. Thick waledl urinary bladder. Masters catheter present. 3. Right base infiltrate and small right, tiny left pleural effusions. 1. Arvind Márquez MD Last 24 hours Impressions Chest X-Ray 07/31/17 1732 Signed Impressions: Service Date/Time: Monday, July 31, 2017 19:04 - CONCLUSION: Possible right midlung infiltrate. Recommend followup films. Aneudy Wong MD Objective Remarks GENERAL: Elderly thin frail chronically ill appearing male with contracture intubated and lightly sedated on fentanyl infusion SKIN: Warm and dry. Multiple wound openings to include sacral, bilateral greater trochanters and bone protrusion left AKA HEAD: Atraumatic. Normocephalic. EYES: Right pupil 1 mm and sluggishly reactive. Left pupil is about 3 mm, aniscoria, appears nonreactive. No scleral icterus. No injection or drainage. ENT: No nasal bleeding or discharge. Mucous membranes dry. Intubated NECK: Trachea midline. No JVD. Right carotid endarterectomy scar well-healed. CARDIOVASCULAR: Irregular with sinus rhythm on the monitor with PACs and multifocal PVCs. Heart sounds are very distant. No murmur appreciated RESPIRATORY: Bilateral chest excursion. No accessory muscle use. Coarse rhonchi bilateral lung fonseca. No wheeze or Rales. GASTROINTESTINAL: Abdomen scaphoid, PEG tube in place with site benign appearing , no drainage. He has voluntary guarding with palpation of right abdomen, no apparent rebound. Bowel sounds hypoactive. : Masters rich urine MUSCULOSKELETAL: Extremities without clubbing, cyanosis. He is s/p L AKA. There is ulceration of stump with small spike of bone protruding through, no exudate. There is about 6x7 cm sacral decubitus wound stage IV s/p debridement with no fluctuance or surrounding cellulitis.There is ~2 cm ulcerations bilateral trochanters without drainage. NEUROLOGICAL: RASS-2, currently sedated on fentanyl infusion .Upper extremities with increased flexor tone bilaterally, moves spontaneously. R lower extremity contracted. Procedures 08/04- I&D of L AKA by Ortho Date of Insertion: Aug 01, 2017 Date of Insertion: Aug 01, 2017 Line: Central Venous Catheter Side: Right Location: Subclavian A/P Problem List: (1) History of lucien hole surgery ICD Code: Z98.89 - History of lucien hole surgery Status: Chronic (2) Septic shock ICD Code: A41.9 - Sepsis, unspecified organism; R65.21 - Severe sepsis with septic shock Status: Acute (3) UTI (urinary tract infection) ICD Code: N39.0 - UTI (urinary tract infection) Status: Acute (4) Dementia ICD Code: F03.90 - Dementia Status: Chronic (5) HTN (hypertension) ICD Code: I10 - HTN (hypertension) Status: Chronic (6) CKD (chronic kidney disease), stage III ICD Code: N18.3 - CKD (chronic kidney disease), stage III Status: Chronic (7) HCAP (healthcare-associated pneumonia) ICD Code: J18.9 - Pneumonia, unspecified organism Status: Acute (8) Decubital ulcer ICD Code: L89.90 - Pressure ulcer of unspecified site, unspecified stage Status: Chronic (9) S/P AKA (above knee amputation) unilateral ICD Code: Z89.619 - Acquired absence of unspecified leg above knee (10) History of BPH ICD Code: Z87.438 - History of BPH Status: Chronic (11) CAD (coronary artery disease) ICD Code: I25.10 - Atherosclerotic heart disease of kaw coronary artery without angina pectoris Status: Chronic (12) Bed confinement status ICD Code: Z74.01 - Bed confinement status Status: Chronic (13) Dysphagia ICD Code: R13.10 - Dysphagia, unspecified Status: Chronic (14) Leukocytosis ICD Code: D72.829 - Leukocytosis Status: Acute Assessment and Plan NEURO: Acute toxic metabolic encephalopathy overlying Dementia Parkinson's disease Bedridden with contractures H/O R subdural with lucien hole and SDH evacuation 04/[address] Sloan H/O R CEA Continue donepezil 10 mg by mouth daily at bedtime Hold sedative/non essential medications but he is chronically on melatonin 5 mg daily at bedtime, Xanax 0.25 mg daily, Zoloft 25 twice a day Fentanyl infusion for ventilator synchrony, maintain RASS -2 RESP: Respiratory distress with acute hypoxemia Healthcare associated pneumonia versus aspiration History of tobacco abuse Small right pleural effusion Prior tracheostomy s/p decannulation DuoNeb every 6 hours scheduled. Albuterol every 2 hours as needed. 08/01 Chest x-ray demonstrates worsening , now diffuse bilateral opacities. Antibiotics as per below 08/02 patient emergently intubated 8.0 at 23 cm at the lip Follow up sputum culture CV: Coronary artery disease with prior stents Essential hypertension Paroxysmal atrial fibrillation Septic shock Lactic acidemia PAD Hold lisinopril due to hypotension and NAYE He is not chronically anticoagulated for A. fib 07/31 A. fib RVR placed on Cardizem infusion, with 5 mg/hour, switched to cardizem via PEG every 6 hours. The toxin 0.5 mg IV 1 dose on 08/06 Continue 0.45 NaCl with 75 mEq of bicarbonate 75 mL per hour GI: Dysphagia Colitis Diverticulosis Diarrhea Elevated transaminase On pured diet at baseline. Nothing by mouth 08/01 C. difficile PCR-negative Has PEG for supplemental feeds. Management per GI 08/02 tube feeds initiated noted high residuals discontinued, Reglan initiated TID Lipase negative. Obtained CT abdomen and pelvis which demonstrated colitis descending colon. Mesenteric ischemia is a consideration. Will treat supportively with fluid resuscitation and abx. Overall prognosis poor and does not appear to be an operative candidate. LFTs downtrending AST 522-> 119, ALT 470->232 FEN/RENAL: Acute kidney injury BPH s/p TURP Electrolyte disturbances No hydronephrosis noted on CT scan. Fluid resuscitation as per above. Inserted Masters which is necessary to monitor urine output as marker of organ perfusion in the setting of septic shock and renal failure, and multiple open wounds ID: HCAP versus aspiration UTI/cystitis - u/a with many yeast. Followup culture. Diflucan 100 mg IV daily , adjusted for renal function. Sacral and hip decubitus ulcers present on admission Influenza negative Check urine legionella and pneumococcal antigen Follow-up urine and blood cultures. Obtain sputum culture Antibiotics per ID. MRI sacrum ordered to evaluate for osteomyelitis in view of sacral decubitus ulcer on 08/07 08/01 C diff PCR-negative Discussed with Dr. Bowman - ID. Recommendations not to perform AKA stump revision at this time secondary to new results of blood culture gram-negative variable rods. [id number] rods, bacillus species Sputum-Klebsiella pneumoniae, E coli, ESBL positive Wound-Enterococcus Faecium VRE, E coli ESBL positive MSK: S/P L AKA - 07/31 stump with poor healing bone protrusion. states she has been told before he was not an operative candidate for revision of the wound, however perhaps could rongeur at bedside? 08/04 Per ID recommendations postpone AKA revision secondary to the culture results of variable gram- negative rods Specialty Bed 08/01-discussed with Dr. Connelly plan for revision AKA under local anesthesia at bedside 08/04 -I & D performed at bedside by Ortho @ 2100 HEME: Chronic iron deficiency anemia Reactive thrombocytosis Continue Ferrous sulfate 325 mill grams by mouth 3 times a day ENDO: Hyperglycemia associated with tube feed administration Monitor bedside glucose every 6 hours and initiate low-dose insulin sliding scale as indicated. PROPH: Heparin subcutaneous for DVT prophylaxis. Famotidine 20mg BID ACCESS: Has peripheral IV. central line placement 07/31 right subclavian Patient is critically ill with septic shock and multiorgan dysfunction who is at risk for further decompensation or . Per dr. Bateman : states he has a living will and that she is his healthcare surrogate. She states that he had stated that he wanted to be FULL CODE. She states she would place consideration to change of code status if his condition worsened but she states she feels he has "rallied" since when he was initially admitted and that he appears to still want to fight. 08/01- palliative care consulted- requests continued aggressive measures This patient remains critically ill with one or more organ systems which are or may become a threat to life. I have spent in excess of 35minutes discontinuously in the care and management of this patient. This time is exclusive of procedures, and includes, but is not limited to, evaluation of the patient, review of the medical record, discussions with family, consultants, nursing staff, or respiratory therapy, and documentation in the medical record. Problem Qualifiers (1) UTI (urinary tract infection): Qualified Codes: N39.0 - Urinary tract infection, site not specified; R31.9 - Hematuria, unspecified (2) Dementia: (3) HTN (hypertension): Qualified Codes: I10 - Essential (primary) hypertension Tay Bowman MD Aug 07, 2017 12:20
[2017-08-07] MEDS: DAPTOmycin INJ 600 MG in SODIUM CHLORIDE 0.9% INJ 100 ML IV SCH (12:21)
[2017-08-07] MEDS: fentaNYL DRIP 250 ML IV PRN ×2 (12:22→22:35)
[2017-08-07] MEDS: METOCLOPRAMIDE HCL 10 MG/2 ML VIAL IV PUSH SCH ×2 (12:28→21:54)
[2017-08-07] MEDS: ZINC OXIDE 20% OINT 30 GM TUBE TOPICAL SCH ×2 (12:29→22:00)
[2017-08-07] MEDS: SODIUM HYPOCHLORITE 0.125% 500 ML BTL TOPICAL SCH ×2 (12:29→22:00)
[2017-08-07] MEDS: SODIUM BICARBONATE 8.4% INJ 75 MEQ in SODIUM CHLOR 0.45% 1000 ML INJ 1,000 ML IV SCH (12:44)
[2017-08-07] MEDS: HEPARIN SODIUM - SQ 10,000 UNITS/ML VIAL SQ SCH ×2 (12:45→21:55)
[2017-08-07] MEDS: SODIUM CHLORIDE 0.9% FLUSH 10 ML FLUSH IV FLUSH SCH ×2 (12:45→21:55)
--- NOTE | 2017-08-07 15:13 | HHI.GIFU ---
Subjective Remarks Intubated on vent. concerned about PEG tube. (Breanne Aponte) Objective Vitals I&O Vital Signs Date Time Temp Pulse Resp B/P (MAP) Pulse Ox O2 Delivery O2 Flow Rate FiO2 08/07/17 13:04 97 50 08/07/17 10:18 94 50 08/07/17 07:12 98 50 08/07/17 06:00 107 08/07/17 04:19 94 35 08/07/17 04:00 94 08/07/17 04:00 35 08/07/17 04:00 99.1 94 18 110/56 (74) 95 08/07/17 02:00 94 08/07/17 01:02 96 35 08/07/17 00:00 223 08/07/17 00:00 35 08/07/17 00:00 99.0 98 16 114/57 (76) 98 08/06/17 22:00 95 08/06/17 20:38 100 35 08/06/17 20:00 35 08/06/17 20:00 98.9 98 24 113/55 (74) 96 08/06/17 20:00 95 08/06/17 19:35 103 08/06/17 19:30 107 08/06/17 19:25 109 08/06/17 19:20 107 08/06/17 19:15 107 08/06/17 19:10 113 08/06/17 19:05 108 08/06/17 19:00 115 08/06/17 18:55 109 08/06/17 18:50 110 08/06/17 18:45 109 08/06/17 18:40 103 08/06/17 18:35 101 08/06/17 18:30 109 08/06/17 18:25 100 08/06/17 18:20 95 08/06/17 18:15 107 08/06/17 18:10 101 08/06/17 18:05 107 08/06/17 18:00 104 08/06/17 17:35 98.6 106 11 117/53 (74) 96 08/06/17 17:35 106 08/06/17 17:30 111 08/06/17 17:30 98.4 111 13 111/53 (72) 96 08/06/17 17:25 102 08/06/17 17:25 98.4 102 12 123/55 (77) 96 08/06/17 17:20 105 08/06/17 17:20 98.4 105 12 113/54 (73) 96 08/06/17 17:15 105 08/06/17 17:15 98.4 105 13 111/53 (72) 96 08/06/17 17:10 103 08/06/17 17:10 98.4 103 12 107/51 (69) 96 08/06/17 17:05 103 08/06/17 17:05 98.4 103 12 111/53 (72) 97 08/06/17 17:00 113 08/06/17 17:00 98.4 113 12 119/53 (75) 96 08/06/17 16:55 98.4 109 15 105/52 (69) 97 08/06/17 16:55 109 08/06/17 16:50 104 08/06/17 16:50 98.4 104 11 100/49 (66) 96 08/06/17 16:45 104 08/06/17 16:45 98.4 104 12 98/49 (65) 96 08/06/17 16:40 98.4 104 11 97/49 (65) 96 08/06/17 16:40 104 08/06/17 16:35 98.4 103 12 97/53 (68) 96 08/06/17 16:35 103 08/06/17 16:30 103 08/06/17 16:30 98.4 103 14 113/53 (73) 96 08/06/17 16:25 111 08/06/17 16:25 98.4 111 12 108/51 (70) 95 08/06/17 16:20 110 08/06/17 16:20 98.4 110 12 112/49 (70) 95 08/06/17 16:15 98.4 111 12 113/53 (73) 96 08/06/17 16:15 111 08/06/17 16:10 118 08/06/17 16:10 98.4 118 12 119/55 (76) 95 08/06/17 16:05 107 08/06/17 16:05 98.4 107 12 116/56 (76) 95 08/06/17 16:00 94 35 08/06/17 16:00 118 08/06/17 16:00 98.2 118 13 115/58 (77) 94 08/06/17 16:00 35 08/06/17 15:36 129 08/06/17 15:30 95 08/06/17 15:25 96 08/06/17 15:20 97 08/06/17 15:15 97 08/06/17 15:10 96 08/06/17 15:05 97 08/06/17 15:00 90 08/06/17 14:55 90 I/O 08/06/17 08/06/17 08/06/17 08/07/17 08/07/17 08/07/17 07:00 15:00 23:00 07:00 15:00 23:00 Intake Total 2745 ml 200 ml 240 ml 1252 ml Output Total 450 ml 400 ml 450 ml Balance 2295 ml 200 ml -160 ml 802 ml IV Total 2745 ml 200 ml 1252 ml Tube Feeding 0 ml Other 240 ml Output Urine Total 450 ml 400 ml 450 ml # Bowel Movements 0 Laboratory Laboratory Tests Test 08/07/17 05:00 White Blood Count 12.9 Red Blood Count 2.89 Hemoglobin 8.3 Hematocrit 26.3 Mean Corpuscular Volume 90.8 Mean Corpuscular Hemoglobin 28.6 Mean Corpuscular Hemoglobin Concent 31.5 Red Cell Distribution Width 18.3 Platelet Count 234 Mean Platelet Volume 8.5 Neutrophils (%) (Auto) 81.7 Lymphocytes (%) (Auto) 11.7 Monocytes (%) (Auto) 4.3 Eosinophils (%) (Auto) 2.1 Basophils (%) (Auto) 0.2 Neutrophils # (Auto) 10.5 Lymphocytes # (Auto) 1.5 Monocytes # (Auto) 0.6 Eosinophils # (Auto) 0.3 Basophils # (Auto) 0.0 CBC Comment DIFF FINAL Differential Comment Blood Urea Nitrogen 32 Creatinine 0.65 Random Glucose 62 Total Protein 4.7 Albumin 1.0 Calcium Level 7.3 Alkaline Phosphatase 99 Aspartate Amino Transf (AST/SGOT) 51 Alanine Aminotransferase (ALT/SGPT) 101 Total Bilirubin 0.5 Sodium Level 146 Potassium Level 3.3 Chloride Level 111 Carbon Dioxide Level 26.5 Anion Gap 9 Estimat Glomerular Filtration Rate 116 Protein Corrected Calcium 8.7 Date/Time Source Procedure Growth Status 08/06/17 06:45 Blood Peripheral Aerobic Blood Culture - Preliminary NO GROWTH IN 1 DAY Resulted 08/06/17 06:45 Blood Peripheral Anaerobic Blood Culture - Preliminary NO GROWTH IN 1 DAY Resulted 08/02/17 14:00 Sputum Expectorated Sputum Gram Stain - Final Complete 08/02/17 14:00 Sputum Culture - Final Klebsiella Pneumoniae Escherichia Coli Esbl Positive Complete 08/02/17 09:50 Urine Catheterized Urine Legionella Antigen - Final PRESUMPTIVE NEGATIVE FOR LEGIONELLA P... Complete 08/02/17 09:50 Urine Catheterized Urine Streptococcus pneumoniae Antigen (M - Final PRESUMPTIVE NEGATIVE FOR STREPTOCOCCU... Complete 08/02/17 12:50 Wound Other Gram Stain - Final Complete 08/02/17 12:50 Wound Culture - Final Enterococcus Faecium Vre Escherichia Coli Esbl Positive Complete Physical Exam HEENT: Normocephalic; atraumatic; no jaundice. CHEST: coarse sounds CARDIAC: Irregular. ABDOMEN: BS faint. PEG tube dressing with scant greenish watery drainage. slight erythema around tube EXTREMITIES: S/P Left AKA mild edema RLE [employer] FIELD: Sedated on vent. (Breanne Aponte) Assessment and Plan Plan ASSESSMENT: - Left sided colitis. Pt admitted for sepsis, HCAP, UTI. CT Scan of the abdomen and pelvis with IV contrast (07/31/17) CT suggests mild left-sided colitis in the proper clinical setting. No obstruction, perforation, or abscess, thick-walled urinary bladder, Masters catheter present, right base infiltrate and small right tiny left pleural effusions. Of note, he does have a history of C. Difficile back in October of 2016 and was treated with Flagyl and Vanco. CDiff negative. per nursing reports no BM since 08/03. - Dysphagia. Gets pureed diet with supplemental feedings via peg at rehab center. Now with pna. per nutrition Jevity 1.5 continuous 55 ml/hr and if PO intake resumes goal rate 80ml/hr [id number]. Now intubated so ST unable to evaluate. - Elevated transaminases, likely shocked liver. CT as above. Hepatitis profile negative. REINIER neg, ASMA negative. AMA pending. - CARMELITA. HH stable - Sepsis, HCAP, UTI. daptomycin - Resp. Failure with pna. On vent. - Acute on chronic kidney dz. - Acute metabolic encephalopathy. lethargic, but answers questions/confused. ? baseline. - Dementia, Decubitus ulcer, HTN, BPH, CAD, PAD, Paroxysmal afib. per attending. PLAN: - KUB - Cont. Reglan - Monitor HH - Monitor LFTs - Await AMA - abx per ID - Supportive care - Further recommendations to follow based on results of above Patient seen and examined by Dr. Brandon and myself and this note is written on her behalf (Breanne Aponte) Breanne Aponte Aug 07, 2017 15:13 Rica Brandon MD Aug 08, 2017 17:40
--- NOTE | 2017-08-07 16:52 | RADRPT ---
EXAM DATE/TIME: 08/07/2017 15:59 [facility] COMPARISON: ABDOMEN KUB ONLY, November 06, 2016, 7:43. INDICATIONS : Abdominal pain, evaluate ileus MEDICAL HISTORY : Myocardial infarction. Cardiovascular disease. Renal calculi. BPH, diabetes SURGICAL HISTORY : Appendectomy. Coronary artery stent. PEG tube ENCOUNTER: Subsequent ACUITY: 3 days PAIN SCORE: Non-responsive. LOCATION: Bilateral abdomen FINDINGS: Gastrostomy tube is evident. Minimal gas-filled nondilated large and small bowel are noted. Degener ative changes in lumbar spine. Moderate bibasilar parietal changes. CONCLUSION: Negative for significant ileus. Yared Irby MD FACR on August 07, 2017 at 16:49 Board Certified Radiologist. This report was verified electronically.
[2017-08-07] MEDS ORDERED: GADODIAMIDE PF 287 MG/ML 5 ML VIAL (for RAD MRI) IVCONTRAST ONE (18:43)
--- NOTE | 2017-08-07 23:12 | RADRPT ---
EXAM DATE/TIME: 08/07/2017 18:12 [facility] COMPARISON: CT ABDOMEN & PELVIS W CONTRAST, July 31, 2017, 22:53. INDICATIONS : Osteomyelitis. CONTRAST: 15 cc Omniscan (gadodiamide) IV MEDICAL HISTORY : Hypertension. Myocardial infarction. Renal calculi. BPH. Diabetes. SURGICAL HISTORY : Appendectomy. Coronary artery stent. PEG tube. TURP. Left knee. Cataracts. ENCOUNTER: Subsequent ACUITY: 1 day PAIN SCORE: Nonresponsive. LOCATION: pelvis posterior side TECHNIQUE: Multiplanar multisequence MRI examination of the sacrum/coccyx was performed. FINDINGS: BONE/CARTILAGE: There is abnormal signal at the posterior aspect of the S4 vertebral body and extending along the pos terior elements of the S4 level. There is some enhancement is seen on axial images in this region. Th e remaining sacral and coccygeal segments appear normal in signal. MUSCLES/TENDONS: There is low signal seen posterior to the lower sacrum and upper coccyx which may be related to air a nd a decubitus ulcer. MISCELLANEOUS: There is a Masters catheter within a nondistended bladder. The bladder wall appears thickened which is likely secondary to the lack of distention. CONCLUSION: 1. Abnormal signal at the posterior aspect of the S4 body and extending into the S4 posterior element s concerning for osteomyelitis. 2. Suspected decubitus ulcer over this region. Arvind Rasmussen MD on August 07, 2017 at 22:58 Board Certified Radiologist. This report was verified electronically.
[2017-08-07 23:51] LABS: MITOCHONDRIAL ABS LESS THAN 20.0 U (<=20.0)
[2017-08-08] VITALS (10 sets, daily range): BP systolic 124–137; BP diastolic 56; PULSE 84–109; RESP 13–14; O2SAT 0–98
[2017-08-08] MEDS: SODIUM BICARBONATE 8.4% INJ 75 MEQ in SODIUM CHLOR 0.45% 1000 ML INJ 1,000 ML IV SCH ×2 (02:18→14:15)
[2017-08-08] MEDS: IMIPENEM/CILASTATIN INJ 500 MG in SODIUM CHLORIDE 0.9% INJ 100 ML IV SCH ×2 (02:18→08:05)
[2017-08-08] MEDS: CHLORHEXIDINE GLUCONATE 2 % 1 PACK (2 CLOTHS) TOP SCH (02:24)
[2017-08-08] MEDS: INSULIN ASPART SUPPLEMENTAL SCALE SQ SCH ×3 (03:15→14:17)
[2017-08-08] MEDS: RESP: ALBUTEROL 2.5 MG/3 ML NEB (PRN) NEB (05:57)
[2017-08-08] MEDS: DILTIAZEM HCL 30 MG TAB PO SCH ×3 (06:00→12:00)
[2017-08-08] MEDS: METOCLOPRAMIDE HCL 10 MG/2 ML VIAL IV PUSH SCH ×2 (06:14→14:17)
[2017-08-08] MEDS: fentaNYL DRIP 250 ML IV PRN (08:01)
[2017-08-08] MEDS: SODIUM CHLORIDE 0.9% FLUSH 10 ML FLUSH IV FLUSH SCH (08:05)
[2017-08-08] MEDS: HEPARIN SODIUM - SQ 10,000 UNITS/ML VIAL SQ SCH (08:22)
[2017-08-08] MEDS: ARTIFICIAL TEARS OPTH OINT 3.5 APPLIC/3.5 GM TUBO LEFT EYE SCH (09:00)
[2017-08-08] MEDS: LACTOBACILLUS ACIDOPHILUS 1 GM PACKET PEG SCH ×2 (09:00→12:12)
[2017-08-08] MEDS: ZINC OXIDE 20% OINT 30 GM TUBE TOPICAL SCH (09:00)
[2017-08-08] MEDS: DOCUSATE SODIUM 50 MG/SENNA 8.6 MG TAB PO SCH (09:00)
[2017-08-08] MEDS: FAMOTIDINE 20 MG/2 ML VIAL IV PUSH SCH (09:00)
[2017-08-08] MEDS: ASCORBIC ACID 500 MG TAB PO SCH (09:00)
[2017-08-08] MEDS: FERROUS SULFATE 325 MG (65 MG ELEMENTAL IRON) TAB PO SCH ×2 (09:30→12:12)
--- NOTE | 2017-08-08 10:57 | RADRPT ---
EXAM DATE/TIME: 08/08/2017 09:16 [facility] COMPARISON: CHEST SINGLE AP, August 05, 2017, 2:53. INDICATIONS : Short of breath. MEDICAL HISTORY : Myocardial infarction. Cardiovascular disease. Renal calculi. BPH, diabetes SURGICAL HISTORY : Appendectomy. Coronary artery stent. peg tube ENCOUNTER: ACUITY: 1 week PAIN SCORE: Non-responsive. LOCATION: Bilateral chest FINDINGS: Stable ETT and right subclavian central line. Progression of diffuse patchy airspace disease bilatera lly, most prominently in the right upper lung zone and left mid to lower lung zones. Cardiomediastina l are stable. Remainder of the exam is unchanged. CONCLUSION: 1. Stable tubes and lines. 2. Worsening patchy bilateral airspace disease, most prominently in the right upper lung zone and lef t mid to lower lung zones. Overall findings are concerning for ARDS versus multilobar pneumonia/atypi micha infection. Shon Escudero MD on August 08, 2017 at 10:53 Board Certified Radiologist. This report was verified electronically.
--- NOTE | 2017-08-08 11:46 | HHI.IDPN ---
Subjective Subjective Remarks Mr. Holguin is a 86 years old male with a past medical history of dementia, Parkinson's, PVD with left AKA, tobacco abuse, BPH, GERD, bed ridden with sacral decubitus ulcers, PEG and history of tracheostomy that was decannulated. Patient is on a pureed diet and gets supplemental bolus feeding via PEG. Apparently, patient vomited after receiving a bolus feed at the snf and thereafter developed signs of respiratory distress. O2 saturation was in the low 70`s on room air. Patient was sent from the snf to the emergency room due to tachypnea, elevated temperature and tachycardia. In ER, Tmax of 101.7 degrees F per rectum, heart rate 129. Patient was also hypotensive. Sepsis workup initiated. Laboratory workup revealed WBC 9.3, hemoglobin 12.7, hematocrit 39.9, platelet count 536, sodium 138, potassium 4.3 , BUN/creatinine 33/1.35, random glucose 99, lactic acid 8.1, AST 104, ALT for focal troponin 0.35, albumin 2.2, protein 7.7. Urine showed large leukocyte esterase, urine culture pending. Chest x-ray revealed possible right midlung infiltrate. CT abdomen/pelvis revealed mild left-sided colitis, no obstruction , perforation or abscess, right base infiltrate and small right tiny left pleural effusions. Patient was found to have acute kidney injury, RML and RLL pneumonia, and urinary tract infection. Patient was treated with vancomycin, aztreonam in the ER and 3L NS. Patient was admitted in ICU for further evaluation and treatment. ICU course complicated with increased respiratory distress and confusion. GI consulted for evaluation and treatment of left-sided colitis. Palliative care consulted to assist with clarifying goals of care. Per review of palliative care records it appears patient has had a decline since Oct this year with multiple hospitalizations. Patient has been residing at [facility] since 2014 and was able to transfer himself from bed to , feed himself and carry a simple conversation with his . Patient has been bedridden since he developed the sacral ulcer and totally dependent for all his ADLs. Patient has dementia and is oriented to self only. Blood cultures done on admission are positive for Kleb pneumo. ID consulted for Kleb pneumo bacteremia and Colitis. There is concern for Ischemic colitis given his vascular history. Cdiff is negative this admission and patient was not on any anti-cdiff treatment per records. Urine cultures are negative. There is concern for aspiration Pneumonia given the history from SNF. Overnight events reviewed. No fevers No rash No diarrhea Not on pressors. UO low. Not tolerating tube feeds. Now on hold Hypoglycemic with BS 26. s/p D50 per RN. Antibiotics Imipenem IV Dapto IV Lines Line sites with no e.o infection Past Medical History reviewed Allergies: Coded Allergies: Fish Containing Products (Unverified Allergy, Severe, 04/25/17) levofloxacin (Unverified Allergy, Severe, 04/25/17) lorazepam (Unverified Allergy, Severe, 04/25/17) morphine (Unverified Allergy, Severe, 04/25/17) penicillin G (Unverified Allergy, Severe, 04/25/17) sulfamethoxazole (Unverified Allergy, Severe, hives, 04/25/17) trimethoprim (Unverified Allergy, Severe, hives, 04/25/17) acetaminophen (Verified Allergy, Mild, ITCHING, 07/31/17) hydrocortisone (Unverified Allergy, Unknown, UNKNOWN, 04/25/17) Objective . Vital Signs Date Time Temp Pulse Resp B/P (MAP) Pulse Ox O2 Delivery O2 Flow Rate FiO2 08/08/17 09:39 92 70 08/08/17 07:39 88 60 08/08/17 06:00 103 08/08/17 05:57 94 Ventilator 50 08/08/17 04:00 97.7 84 13 137/56 (83) 97 08/08/17 04:00 84 08/08/17 04:00 35 08/08/17 03:49 98 50 08/08/17 02:00 86 08/08/17 00:00 98.4 92 14 124/56 (78) 95 08/08/17 00:00 35 08/08/17 00:00 92 08/07/17 23:32 92 50 08/07/17 22:00 97 08/07/17 20:00 98 08/07/17 20:00 99.0 98 16 143/65 (91) 95 08/07/17 20:00 35 08/07/17 19:59 95 50 08/07/17 18:40 0 100 08/07/17 18:00 119 08/07/17 16:39 98 50 08/07/17 16:00 97.7 80 14 111/53 (72) 99 08/07/17 16:00 80 08/07/17 16:00 35 08/07/17 14:00 89 08/07/17 13:04 97 50 08/07/17 12:00 89 08/07/17 12:00 35 08/07/17 12:00 97.9 103 14 101/52 (68) 99 . Laboratory Tests Test 08/07/17 05:00 White Blood Count 12.9 TH/MM3 Red Blood Count 2.89 MIL/MM3 Hemoglobin 8.3 GM/DL Hematocrit 26.3 % Mean Corpuscular Volume 90.8 FL Mean Corpuscular Hemoglobin 28.6 PG Mean Corpuscular Hemoglobin Concent 31.5 % Red Cell Distribution Width 18.3 % Platelet Count 234 TH/MM3 Mean Platelet Volume 8.5 FL Neutrophils (%) (Auto) 81.7 % Lymphocytes (%) (Auto) 11.7 % Monocytes (%) (Auto) 4.3 % Eosinophils (%) (Auto) 2.1 % Basophils (%) (Auto) 0.2 % Neutrophils # (Auto) 10.5 TH/MM3 Lymphocytes # (Auto) 1.5 TH/MM3 Monocytes # (Auto) 0.6 TH/MM3 Eosinophils # (Auto) 0.3 TH/MM3 Basophils # (Auto) 0.0 TH/MM3 CBC Comment DIFF FINAL Differential Comment Laboratory Tests Test 08/07/17 05:00 Blood Urea Nitrogen 32 MG/DL Creatinine 0.65 MG/DL Random Glucose 62 MG/DL Total Protein 4.7 GM/DL Albumin 1.0 GM/DL Calcium Level 7.3 MG/DL Alkaline Phosphatase 99 U/L Aspartate Amino Transf (AST/SGOT) 51 U/L Alanine Aminotransferase (ALT/SGPT) 101 U/L Total Bilirubin 0.5 MG/DL Sodium Level 146 MEQ/L Potassium Level 3.3 MEQ/L Chloride Level 111 MEQ/L Carbon Dioxide Level 26.5 MEQ/L Anion Gap 9 MEQ/L Estimat Glomerular Filtration Rate 116 ML/MIN Protein Corrected Calcium 8.7 MG/DL Microbiology Date/Time Source Procedure Growth Status 08/08/17 09:40 Blood Peripheral Pending Received 08/06/17 06:45 Blood Peripheral Aerobic Blood Culture - Preliminary NO GROWTH IN 2 DAYS Resulted 08/06/17 06:45 Blood Peripheral Anaerobic Blood Culture - Preliminary NO GROWTH IN 2 DAYS Resulted 08/06/17 05:41 Blood Peripheral Aerobic Blood Culture - Preliminary NO GROWTH IN 2 DAYS Resulted 08/06/17 05:41 Blood Peripheral Anaerobic Blood Culture - Preliminary NO GROWTH IN 2 DAYS Resulted Imaging Last Impressions Chest X-Ray 08/03/17 0600 Signed Impressions: Service Date/Time: July 04:07 - CONCLUSION: No significant change. Patchy diffuse airspace disease of both lungs. Arvind Márquez MD Abdomen/Pelvis CT 07/31/17 0000 Signed Impressions: Service Date/Time: Monday, July 31, 2017 22:53 - CONCLUSION: 1. CT suggests mild left-sided colitis in the proper clinical setting. No obstruction , perforation or abscess. 2. Thick waledl urinary bladder. Masters catheter present. 3. Right base infiltrate and small right, tiny left pleural effusions. 1. Arvind Márquez MD Physical Exam GENERAL: This is a well-nourished, well-developed patient, in no apparent distress. SKIN: No rashes, ecchymoses or lesions. Cool and dry. HEAD: Atraumatic. Normocephalic. No temporal or scalp tenderness. EYES: Pupils equal round and reactive. Extraocular motions intact. No scleral icterus. No injection or drainage. ENT: Intubated. NECK: Trachea midline. Supple, nontender, no meningeal signs. CARDIOVASCULAR: Regular rate and rhythm without murmurs, gallops, or rubs. RESPIRATORY: Clear to auscultation. Breath sounds equal bilaterally. No wheezes , rales, or rhonchi. GASTROINTESTINAL: Abdomen soft, non-tender, nondistended. MUSCULOSKELETAL: Left LE ulcer on stump with clean margins no erythema. Bone spur protruding from skin. Multiple decubs as per wound care/RN notes. Reviewed with the RN. NEUROLOGICAL: Sedated Psych could not be assessed IV line sites with no e.o infection Assessment & Plan Remarks Sepsis Kleb pneumo Bacteremia Bacillus not anthracis bacteremia positive on 2 separate days r/o endocarditis. VRE and ESBL in sacral wound: infected osteomyelitis of sacrum Left AKA stump with protruding bone but no infection PEG tube status. Acute resp failure Acute metabolic encephalopathy: baseline dementia and parkinsons. Sepsis contributing factor. 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 Cdiff negative. Recs Continue Imipenem (will cover ESBL as well as Bacillus 2nd line agent) Continue Dapto IV (VRE in sacral cultures, area concerning for Sacral osteomyelitis) 2D ECHO to rule out endocarditis. MRI with and without contrast of Sacrum with osteomyelitis. Clinically ulcer down to bone on exam and bone could be probed. Follow cultures Follow clinically dw [facility] MEJIA and RN Yarely Bowman MD Aug 08, 2017 11:46
[2017-08-08] MEDS: DAPTOmycin INJ 600 MG in SODIUM CHLORIDE 0.9% INJ 100 ML IV SCH (12:00)
[2017-08-08 13:28] LABS: CKMB 195.5 NG/ML (0.5-3.6)
[2017-08-08] MEDS ORDERED: BUMETANIDE INJ 1 MG/4 ML VIAL IV PUSH SCH (13:30)
--- NOTE | 2017-08-08 13:57 | HHI.CCPN ---
Subjective Remarks/Hospital Course 86-year-old male with past medical history of dementia, Parkinson's, bedridden, sacral decubitus ulcers, PAD with left AKA, tobacco abuse, BPH, GERD , PEG, prior tracheostomy that has subsequently been decannulated who presents to [facility] emergency department with respiratory distress. He is on a pured diet and gets supplemental bolus feeds at mealtime depending on how much that he takes by mouth. Today he did not have very much appetite, did not eat much, received a bolus feed. He then had an episode of vomiting and subsequently had tachypnea. He desaturated into the 70s on room air. He was placed on supplemental oxygen. He had rigors and fever and therefore was brought to [facility] emergency Department was where she was found to be in septic shock with multiorgan dysfunction. He has right middle lobe and right lower lobe pneumonia and urinary tract infection. Temperature is 100.6. Blood pressure is 82/49 with a lactic acid of 8.1. He is in acute kidney injury with creatinine 1.35. He has not had any diarrhea. He denies abdominal pain but has voluntary guarding on exam. (History from him is almost non existent, this is based on verbal and nonverbal cues interpreted by his ) He received vancomycin and aztreonam in the emergency department. He has received 3 L normal saline bolus. Hospitalized at [facility] in October 2016 with C. difficile and HCAP with respiratory failure. He was intubated and extubated several times and ultimately underwent tracheostomy 11/15/16 and PEG. He was recently hospitalized at [facility] 1-1/2 months ago related to infection of his sacral wound which has had multiple debridements. Reportedly has recently been on antibiotics for UTI. denies known ho MDRO. Subjective: 08/01: Tmax 99.1. Patient alert to name only, denies pain. O2 requirements decreased currently on Ventimask at 40%. Patient having multiple loose bowel movements, C. difficile PCR pending. 08/02: Afebrile. Patient noted to have increasing O2 requirements this a.m. , chest x-ray shows worsening opacities now with leukocytosis and bandemia. Patient noted to have gram-negative bacteremia. Patient currently on atrezonam and metronidazole. ID consulted appreciate recommendations. CDiff PCR noted to be negative. Today afternoon the patient was noted to go into atrial fibrillation with a heart rate in the 140s-160s was placed on a Cardizem infusion ,now rate is controlled will be transitioned to PO Cardizem. Metabolic acidosis slightly improved sodium bicarbonate drip decreased to 30 cc/hour. Plan for revision of left AKA stump this a.m. at the bedside with Dr. Connelly, under local anesthesia. 08/03: Afebrile. Patient was placed on tube feeds at 55 cc/an hour, did not tolerate, large residuals. Patient was placed on metoclopramide per GI, and tube feeds now placed on hold. The patient continues on fentanyl infusion baseline neurological status as previously noted. Decreasing oxygen requirements, currently on 35% FiO2. Blood cultures revealed variable gram- negative rods. Discussed with ID tentative plan for revision of AKA, per Dr. Bowman due to the recent results of gram-negative variable rods recommendation not to perform revision at this time. Planned to perform revision after negative blood cultures obtained and 2 or 3 days have elapsed. 08/04: Afebrile. No acute events overnight. The patient continues to have persistent leukocytosis. ID following. 08/05: Patient went into A. fib RVR this afternoon, given 1 dose of digoxin 0.25 IV. Patient was noted to have a low magnesium level and magnesium being replaced. WBC count slightly improved. Last night orthopedics came in and performed I&D the bedside. 08/06: Remains sedated, orally intubated on mechanical ventilation. 08/07: Remains sedated, orally intubated on mechanical ventilation. 08/08: Sedated, orally intubated on mechanical ventilation. Worsening respiratory status noted. PEEP increased to +10. Hypoglycemic episodes and hence resuming tube feeds via PEG while awaiting GI to decide plan with leak around PEG site. Objective Vital Signs Date Time Temp Pulse Resp B/P (MAP) Pulse Ox O2 Delivery O2 Flow Rate FiO2 08/08/17 13:15 0 70 08/08/17 06:00 103 08/08/17 05:57 Ventilator 08/08/17 04:00 97.7 13 137/56 (83) Intake and Output 08/08/17 08/08/17 08/09/17 08:00 16:00 00:00 Intake Total 993 ml Output Total 550 ml Balance 443 ml Result Diagram: 08/07/17 0500 08/08/17 1105 Imaging Last Impressions Chest X-Ray 07/31/17 1732 Signed Impressions: Service Date/Time: Monday, July 31, 2017 19:04 - CONCLUSION: Possible right midlung infiltrate. Recommend followup films. Aneudy Wong MD Abdomen/Pelvis CT 07/31/17 0000 Signed Impressions: Service Date/Time: Monday, July 31, 2017 22:53 - CONCLUSION: 1. CT suggests mild left-sided colitis in the proper clinical setting. No obstruction , perforation or abscess. 2. Thick waledl urinary bladder. Masters catheter present. 3. Right base infiltrate and small right, tiny left pleural effusions. 1. Arvind Márquez MD Last 24 hours Impressions Chest X-Ray 07/31/171731 Signed Impressions: Service Date/Time: Monday, July 31, 2017 19:04 - CONCLUSION: Possible right midlung infiltrate. Recommend followup films. Aneudy Wong MD Objective Remarks GENERAL: Elderly thin frail chronically ill appearing male with contracture intubated and lightly sedated on fentanyl infusion SKIN: Warm and dry. Multiple wound openings to include sacral, bilateral greater trochanters and bone protrusion left AKA HEAD: Atraumatic. Normocephalic. EYES: Right pupil 1 mm and sluggishly reactive. Left pupil is about 3 mm, aniscoria, appears nonreactive. No scleral icterus. No injection or drainage. ENT: No nasal bleeding or discharge. Mucous membranes dry. Intubated NECK: Trachea midline. No JVD. Right carotid endarterectomy scar well-healed. CARDIOVASCULAR: Irregular with sinus rhythm on the monitor with PACs and multifocal PVCs. Heart sounds are very distant. No murmur appreciated RESPIRATORY: Orally intubated, on mechanical ventilation. Coarse rhonchi bilateral lung fonseca. No wheezing GASTROINTESTINAL: Abdomen scaphoid, PEG tube in place with site benign appearing , no drainage. He has voluntary guarding with palpation of right abdomen, no apparent rebound. Bowel sounds hypoactive. : Masters rich urine MUSCULOSKELETAL: Extremities without clubbing, cyanosis. He is s/p L AKA. There is ulceration of stump with small spike of bone protruding through, no exudate. There is about 6x7 cm sacral decubitus wound stage IV s/p debridement with no fluctuance or surrounding cellulitis.There is ~2 cm ulcerations bilateral trochanters without drainage. NEUROLOGICAL: RASS-2, currently sedated on fentanyl infusion .Upper extremities with increased flexor tone bilaterally, moves spontaneously. R lower extremity contracted. Procedures 08/04- I&D of L AKA by Ortho Date of Insertion: Aug 01, 2017 Date of Insertion: Aug 01, 2017 Line: Central Venous Catheter Side: Right Location: Subclavian A/P Problem List: (1) History of lucien hole surgery ICD Code: Z98.89 - History of lucien hole surgery Status: Chronic (2) Septic shock ICD Code: A41.9 - Sepsis, unspecified organism; R65.21 - Severe sepsis with septic shock Status: Acute (3) UTI (urinary tract infection) ICD Code: N39.0 - UTI (urinary tract infection) Status: Acute (4) Dementia ICD Code: F03.90 - Dementia Status: Chronic (5) HTN (hypertension) ICD Code: I10 - HTN (hypertension) Status: Chronic (6) CKD (chronic kidney disease), stage III ICD Code: N18.3 - CKD (chronic kidney disease), stage III Status: Chronic (7) HCAP (healthcare-associated pneumonia) ICD Code: J18.9 - Pneumonia, unspecified organism Status: Acute (8) Decubital ulcer ICD Code: L89.90 - Pressure ulcer of unspecified site, unspecified stage Status: Chronic (9) S/P AKA (above knee amputation) unilateral ICD Code: Z89.619 - Acquired absence of unspecified leg above knee (10) History of BPH ICD Code: Z87.438 - History of BPH Status: Chronic (11) CAD (coronary artery disease) ICD Code: I25.10 - Atherosclerotic heart disease of [place] coronary artery without angina pectoris Status: Chronic (12) Bed confinement status ICD Code: Z74.01 - Bed confinement status Status: Chronic (13) Dysphagia ICD Code: R13.10 - Dysphagia, unspecified Status: Chronic (14) Leukocytosis ICD Code: D72.829 - Leukocytosis Status: Acute Assessment and Plan NEURO: Acute toxic metabolic encephalopathy overlying Dementia Parkinson's disease Bedridden with contractures H/O R subdural with lucien hole and SDH evacuation 04/[address] Sloan H/O R CEA Continue donepezil 10 mg by mouth daily at bedtime Hold sedative/non essential medications but he is chronically on melatonin 5 mg daily at bedtime, Xanax 0.25 mg daily, Zoloft 25 twice a day Fentanyl infusion for ventilator synchrony, maintain RASS -2 RESP: Respiratory distress with acute hypoxemia Healthcare associated pneumonia versus aspiration History of tobacco abuse Small right pleural effusion Prior tracheostomy s/p decannulation DuoNeb every 6 hours scheduled. Albuterol every 2 hours as needed. 08/01 Chest x-ray demonstrates worsening , now diffuse bilateral opacities. Antibiotics as per below 08/02 patient emergently intubated 8.0 at 23 cm at the lip Repeat sputum culture CV: Coronary artery disease with prior stents Essential hypertension Paroxysmal atrial fibrillation Septic shock Lactic acidemia PAD Hold lisinopril due to hypotension and NAYE He is not chronically anticoagulated for A. fib 07/31 A. fib RVR placed on Cardizem infusion, with 5 mg/hour, switched to cardizem via PEG every 6 hours. Digoxin 0.5 mg IV 1 dose on 08/06. Check 2-D echo to assess LV function. Bumex 2 mg IV now and daily started on 08/08 in view of worsening chest x-ray and increasing FiO2. Continue 0.45 NaCl with 75 mEq of bicarbonate 75 mL per hour Bumex IV to mobilize fluid in v/o worsening resp status. GI: Dysphagia Colitis Diverticulosis Diarrhea Elevated transaminase On pured diet at baseline. 08/01 C. difficile PCR-negative Has PEG for supplemental feeds. Management per GI 08/02 tube feeds initiated noted high residuals and subsequently leak around PEG site hence discontinued, Reglan initiated TID, resuming tube feeds via PEG on 08/08 due to hypoglycemia Lipase negative. Obtained CT abdomen and pelvis which demonstrated colitis descending colon. Mesenteric ischemia is a consideration. Will treat supportively with fluid resuscitation and abx. Overall prognosis poor and does not appear to be an operative candidate. LFTs downtrending AST 522-> 119, ALT 470->232 FEN/RENAL: Acute kidney injury BPH s/p TURP Electrolyte disturbances No hydronephrosis noted on CT scan. s/p fluid resuscitation. Inserted Masters which is necessary to monitor urine output as marker of organ perfusion in the setting of septic shock and renal failure, and multiple open wounds ID: HCAP versus aspiration UTI/cystitis - u/a with many yeast. Followup culture. Diflucan 100 mg IV daily , adjusted for renal function. Sacral and hip decubitus ulcers present on admission Influenza negative Check urine legionella and pneumococcal antigen Follow-up urine and blood cultures. Obtain sputum culture Antibiotics per ID. MRI sacrum ordered to evaluate for osteomyelitis in view of sacral decubitus ulcer on 08/07 08/01 C diff PCR-negative Discussed with Dr. Bowman - ID. Recommendations not to perform AKA stump revision at this time secondary to new results of blood culture gram-negative variable rods. [id number] rods, bacillus species Sputum-Klebsiella pneumoniae, E coli, ESBL positive Wound-Enterococcus Faecium VRE, E coli ESBL positive MSK: S/P L AKA - 07/31 stump with poor healing bone protrusion. states she has been told before he was not an operative candidate for revision of the wound, however perhaps could rongeur at bedside? 08/04 Per ID recommendations postpone AKA revision secondary to the culture results of variable gram- negative rods Specialty Bed 08/01-discussed with Dr. Connelly plan for revision AKA under local anesthesia at bedside 08/04 -I & D performed at bedside by Ortho @ 2100 HEME: Chronic iron deficiency anemia Reactive thrombocytosis Continue Ferrous sulfate 325 mill grams by mouth 3 times a day ENDO: Hyperglycemia associated with tube feed administration Monitor bedside glucose every 6 hours and initiate low-dose insulin sliding scale as indicated. PROPH: Heparin subcutaneous for DVT prophylaxis. Famotidine 20mg BID ACCESS: Has peripheral IV. central line placement 07/31 right subclavian Patient is critically ill with septic shock and multiorgan dysfunction who is at risk for further decompensation or . Per dr. Bateman : states he has a living will and that she is his healthcare surrogate. She states that he had stated that he wanted to be FULL CODE. She states she would place consideration to change of code status if his condition worsened but she states she feels he has "rallied" since when he was initially admitted and that he appears to still want to fight. 08/01- palliative care consulted- requests continued aggressive measures This patient remains critically ill with one or more organ systems which are or may become a threat to life. I have spent in excess of 35minutes discontinuously in the care and management of this patient. This time is exclusive of procedures, and includes, but is not limited to, evaluation of the patient, review of the medical record, discussions with family, consultants, nursing staff, or respiratory therapy, and documentation in the medical record. Problem Qualifiers (1) UTI (urinary tract infection): Qualified Codes: N39.0 - Urinary tract infection, site not specified; R31.9 - Hematuria, unspecified (2) Dementia: (3) HTN (hypertension): Qualified Codes: I10 - Essential (primary) hypertension Tay Bowman MD Aug 08, 2017 13:57
[2017-08-08] MEDS: SODIUM HYPOCHLORITE 0.125% 500 ML BTL TOPICAL SCH (14:16)
--- NOTE | 2017-08-08 14:26 | ECHRPT ---
Indication: Acute and subacute endocarditis, unspecified CONCLUSIONS Technically very difficult study, making assessment of left ventricular function and wall motion karsten y suboptimal. Grossly left ventricular function appears at least moderately reduced with upper normal left ventricular size. Wall motion abnormalities cannot be excluded on the basis of this study. Moderate mitral annular calcification and trace mitral regurgitation. There is mild tricuspid valve regurgitation. The estimated pulmonary arterial pressure is 28 mmHg. BP: 137 / 56 HR: 84 Rhythm: Other MEASUREMENTS (Male / Female) Normal Values Technical Quality:Poor 2D ECHO LV Diastolic Diameter PLAX 4.4 cm 4.2 - 5.9 / 3.9 - 5.3 cm LV Systolic Diameter PLAX 3.5 cm IVS Diastolic Thickness 1.1 cm 0.6 - 1.0 / 0.6 - 0.9 cm LVPW Diastolic Thickness 1.1 cm 0.6 - 1.0 / 0.6 - 0.9 cm LV Relative Wall Thickness 0.5 LVOT Diameter 2.4 cm M-MODE Aortic Root Diameter MM 3.3 cm LA Systolic Diameter MM 2.8 cm LA Ao Ratio MM 0.8 AV Cusp Separation MM 2.0 cm DOPPLER AV Peak Velocity 109.0 cm/s AV Peak Gradient 4.8 mmHg LVOT Peak Velocity 80.0 cm/s LVOT Peak Gradient 2.6 mmHg AV Area Cont Eq pk 3.3 cm MR Peak Velocity 213.0 cm/s MR Peak Gradient 18.1 mmHg Mitral E Point Velocity 82.4 cm/s Mitral A Point Velocity 108.0 cm/s Mitral E to A Ratio 0.8 LV E' Septal Velocity 2.1 cm/s Mitral E to LV E' Septal Ratio 38.5 TR Peak Velocity 215.0 cm/s TR Peak Gradient 18.5 mmHg Right Atrial Pressure 10.0 mmHg Pulmonary Artery Systolic Pressu 28.5 mmHg Right Ventricular Systolic Press 28.5 mmHg PV Peak Velocity 90.9 cm/s PV Peak Gradient 3.3 mmHg FINDINGS LEFT VENTRICLE Technically very difficult study, making assessment of left ventricular function and wall motion karsten y suboptimal. Grossly left ventricular function appears at least moderately reduced with upper normal left ventricular size. Wall motion abnormalities cannot be excluded on the basis of this study. RIGHT VENTRICLE Normal right ventricular size and systolic function. LEFT ATRIUM The left atrial size is normal. RIGHT ATRIUM The right atrial size is normal. ATRIAL SEPTUM Normal atrial septal thickness without atrial level shunting by limited color doppler interrogation. AORTA The aortic root and proximal ascending aorta are normal in size on limited imaging. MITRAL VALVE Moderate mitral annular calcification and trace mitral regurgitation. AORTIC VALVE Trileaflet aortic valve. No aortic valve stenosis or regurgitation. TRICUSPID VALVE There is mild tricuspid valve regurgitation. The estimated pulmonary arterial pressure is 28 mmHg. PULMONARY VALVE No pulmonary valve regurgitation or stenosis. VESSELS The inferior vena cava is normal in size. PERICARDIUM No pericardial effusion. Kobe Bowles MD (Electronically Signed) Final Date:08 August 2017 14:25
[2017-08-08 14:51] LABS: BLOOD GAS BASE EXCESS -17.3 mmol/L (-2-2); BLOOD GAS CARBOXYHEMOGLOBIN 0.3 % (0-4); BLOOD GAS HCO3 11 mmol/L (22-26); BLOOD GAS O2 HGB SATURATION 94 % (90-100); BLOOD GAS OXYGEN CONTENT 11.7 Vol % (12.0-20.0); BLOOD GAS PCO2 45 mmHg (38-42); BLOOD GAS PO2 110 mmHg (61-120); BLOOD GAS TOTAL HGB 8.7 G/DL (12.0-16.0); CRITICAL VALUE YES; OXYGEN DEVICE VENTILATOR; TEMP CORR TO 98.6
--- NOTE | 2017-08-08 14:51 | HHI.HCPN ---
Reason for visit a. To assist with evaluation and management of symptoms including: shortness of breath, dysphagia, debility b. To assist medical decision maker(s) with: better understanding of current medical conditions; weighing benefits/burdens of medical treatment options; making medical treatment decisions. Subjective/Interval History Mr. Holguin is a 86 years old male with a past medical history of dementia, Parkinson's, PVD with left AKA, tobacco abuse, BPH, GERD, bed ridden with sacral decubitus ulcers, PEG and history of tracheostomy that was decannulated. Patient is on a pureed diet and gets supplemental bolus feeding via PEG. Apparently, patient vomited after receiving a bolus feed at the skilled nursing and thereafter developed signs of respiratory distress. O2 saturation was in the low 70`s on room air. Patient was sent from the skilled nursing to the emergency room due to tachypnea, elevated temperature and tachycardia. In ER, Tmax of 101.7 degrees F per rectum, heart rate 129. Patient was also hypotensive. MRI sacrum/coccyx 08/07/17 revealed abnormal signal at the posterior aspect of the S4 body and extending into the S4 posterior elements concerning for osteomyelitis. Patient seen in his room 1330hrs, remains intubated on mechanical ventilation. Patient has increased work of breathing today. Patient is on Fentanyl infusion @ 200mch/hr. Eyes open but not tracking. Mottling noted to right foot and discoloration to testicles. Noted wound to anterior part of testicles. Unable to palpate pulse to right pedal. Report from bedside RN of hypoglycemic state. PEG tube currently clamped, and TF on hold due to leakage around PEG insertion site. Abdomen X ray 08/07/17 revealed negative for ileus. Laboratory work up today revealing random glucose 116, total creatine kinase 670, CK-MB 195.5. Chest X Ray today revealed worsening patchy bilateral airspace disease, mostly in the Right upper lung and mid to lower lung zones. Findings concerning for ARDS versus multilobar pneumonia/atypical infection. Telephone conversation with [email or web address] , notified her of diagnostic test results. Patient`s coming in later to visit with patient. Planning to meet with her. Case discussed with bedside RN. Notified RN Trina. 1510hrs- Dual visit with Maria Elena Cummings. Met with patient`s in patent`s room. Updated her on patient`s medical status inclusive of diagnostic tests results- (MRI), increase in FIO2, PEEP, hypoglycemic state and overall poor prognosis. Patient`s stated that she knew as soon as she saw patient that "now is the time". states that she does not want him to suffer. Patient hemodynamically unstable, HR 30s, unable to obtain blood pressure and O2 saturation. Patients does not want patient to be resuscitated and does not want any escalation of care, and no pressors. made patient DNR.Notified bedside RN. Patient`s allowed to be at bedside with patient. Case discussed with Dr. Ai Bowman, notified him that patient is now a DNR and does not want any escalation of care. . Family/friend interactions Telephone call to , updated her on patient`s medical status. Meeting with patient`s . . Advance Directives Living Will: Copy in medical record Health Care Surrogate: Copy in medical record Advance Directive Specifics Date completed: 08/05/2012 . Health Care Surrogate(s): Spouse- [facility]- Ally Ramesh . Documented care wishes: Standard verbiage. Form scanned into EMR . Objective Vital Signs Date Time Temp Pulse Resp B/P (MAP) Pulse Ox O2 Delivery O2 Flow Rate FiO2 08/08/17 13:15 0 70 08/08/17 09:39 92 70 08/08/17 07:39 88 60 08/08/17 06:00 103 08/08/17 05:57 94 Ventilator 50 08/08/17 04:00 97.7 84 13 137/56 (83) 97 08/08/17 04:00 84 08/08/17 04:00 35 08/08/17 03:49 98 50 08/08/17 02:00 86 08/08/17 00:00 98.4 92 14 124/56 (78) 95 08/08/17 00:00 35 08/08/17 00:00 92 08/07/17 23:32 92 50 08/07/17 22:00 97 08/07/17 20:00 98 08/07/17 20:00 99.0 98 16 143/65 (91) 95 08/07/17 20:00 35 08/07/17 19:59 95 50 08/07/17 18:40 0 100 08/07/17 18:00 119 11/27/17 16:39 98 50 08/07/17 16:00 97.7 80 14 111/53 (72) 99 08/07/17 16:00 80 08/07/17 16:00 35 Intake & Output 08/08/17 08/08/17 07:00 19:00 Intake Total 1443 ml Output Total 550 ml Balance 893 ml IV Total 1443 ml Output Urine Total 550 ml Physical Exam CONSTITUTIONAL/GENERAL: This is an elderly, ill looking patient, lethargic, eyes open, not tracking, intubated on mechanical ventilation. On Fentanyl at 200mcg/hr TUBES/LINES/DRAINS: TLC, PIV, FC, ETT SKIN: No jaundice, rashes, or lesions. Ecchymoses on upper extremities. Stage II left trochanter ulcer and Stage III coccyx ulcer per EMR. Noted x2 intact dsgs to right foot and wound to right inner ankle open to a and left stump. Right foot with mottling and cold to touch, unable to palpate pulse. HEAD: Atraumatic. Normocephalic. EYES:Eyes open, not tracking. Extraocular motions intact. No scleral icterus. No injection or drainage. Fundi not examined. ENT: . Nose without bleeding or purulent drainage. Moist oral mucosa. ETT in place NECK: Trachea midline. Supple, nontender. CARDIOVASCULAR: HR low 90s-irregular. No murmurs, gallops, or rubs. No JVD. Peripheral pulses symmetric-L AKA. RESPIRATORY/CHEST: Symmetric . Lungs rhonchi to auscultation. Diminished breath sounds equal bilaterally. Intubated on mechanical ventilation, FIO2 70% GASTROINTESTINAL: Abdomen soft, non-tender, nondistended. No palpable masses. Bowel sounds present. PEG tube currently clamped GENITOURINARY: Without palpable bladder distension. Masters catheter in place. MUSCULOSKELETAL: Extremities without clubbing, cyanosis, or edema. No mottling or clubbing. L AKA. NEUROLOGICAL: Eyes open, not tracking, sedated, intubated on mechanical ventilation. PSYCHIATRIC: Intubated on mechanical ventilation, sedated. . Diagnostic Tests Laboratory Laboratory Tests Test 08/06/17 07:15 08/07/17 05:00 08/08/17 11:05 White Blood Count 10.9 TH/MM3 (4.0-11.0) 12.9 TH/MM3 (4.0-11.0) Red Blood Count 2.54 MIL/MM3 (4.50-5.90) 2.89 MIL/MM3 (4.50-5.90) Hemoglobin 7.6 GM/DL (13.0-17.0) 8.3 GM/DL (13.0-17.0) Hematocrit 23.0 % (39.0-51.0) 26.3 % (39.0-51.0) Mean Corpuscular Volume 90.5 FL (80.0-100.0) 90.8 FL (80.0-100.0) Mean Corpuscular Hemoglobin 30.0 PG (27.0-34.0) 28.6 PG (27.0-34.0) Mean Corpuscular Hemoglobin Concent 33.1 % (32.0-36.0) 31.5 % (32.0-36.0) Red Cell Distribution Width 17.9 % (11.6-17.2) 18.3 % (11.6-17.2) Platelet Count 204 TH/MM3 (150-450) 234 TH/MM3 (150-450) Mean Platelet Volume 8.6 FL (7.0-11.0) 8.5 FL (7.0-11.0) Blood Urea Nitrogen 39 MG/DL (7-18) 32 MG/DL (7-18) Creatinine 0.86 MG/DL (0.60-1.30) 0.65 MG/DL (0.60-1.30) Random Glucose 102 MG/DL (74-106) 62 MG/DL (74-106) 116 MG/DL (74-106) Total Protein 4.5 GM/DL (6.4-8.2) 4.7 GM/DL (6.4-8.2) Albumin 1.0 GM/DL (3.4-5.0) 1.0 GM/DL (3.4-5.0) Calcium Level 7.2 MG/DL (8.5-10.1) 7.3 MG/DL (8.5-10.1) Alkaline Phosphatase 97 U/L (45-117) 99 U/L (45-117) Aspartate Amino Transf (AST/SGOT) 72 U/L (15-37) 51 U/L (15-37) Alanine Aminotransferase (ALT/SGPT) 136 U/L (12-78) 101 U/L (12-78) Total Bilirubin 0.4 MG/DL (0.2-1.0) 0.5 MG/DL (0.2-1.0) Sodium Level 145 MEQ/L (136-145) 146 MEQ/L (136-145) Potassium Level 3.5 MEQ/L (3.5-5.1) 3.3 MEQ/L (3.5-5.1) Chloride Level 111 MEQ/L (98-107) 111 MEQ/L (98-107) Carbon Dioxide Level 24.8 MEQ/L (21.0-32.0) 26.5 MEQ/L (21.0-32.0) Anion Gap 9 MEQ/L (5-15) 9 MEQ/L (5-15) Estimat Glomerular Filtration Rate 84 ML/MIN (>89) 116 ML/MIN (>89) Protein Corrected Calcium 8.7 MG/DL (8.5-10.1) 8.7 MG/DL (8.5-10.1) Magnesium Level 2.0 MG/DL (1.5-2.5) Neutrophils (%) (Auto) 81.7 % (16.0-70.0) Lymphocytes (%) (Auto) 11.7 % (9.0-44.0) Monocytes (%) (Auto) 4.3 % (0.0-8.0) Eosinophils (%) (Auto) 2.1 % (0.0-4.0) Basophils (%) (Auto) 0.2 % (0.0-2.0) Neutrophils # (Auto) 10.5 TH/MM3 (1.8-7.7) Lymphocytes # (Auto) 1.5 TH/MM3 (1.0-4.8) Monocytes # (Auto) 0.6 TH/MM3 (0-0.9) Eosinophils # (Auto) 0.3 TH/MM3 (0-0.4) Basophils # (Auto) 0.0 TH/MM3 (0-0.2) CBC Comment DIFF FINAL Differential Comment Total Creatine Kinase 670 U/L (39-308) Creatine Kinase MB 195.5 NG/ML (0.5-3.6) Creatine Kinase MB % 29.2 % (0.0-4.0) Result Diagram: 08/07/17 0500 08/08/17 1105 Microbiology Microbiology Date/Time Source Procedure Growth Status 08/08/17 09:40 Blood Peripheral Pending Received 08/06/17 06:45 Blood Peripheral Aerobic Blood Culture - Preliminary NO GROWTH IN 2 DAYS Resulted 08/06/17 06:45 Blood Peripheral Anaerobic Blood Culture - Preliminary NO GROWTH IN 2 DAYS Resulted 08/06/17 05:41 Blood Peripheral Aerobic Blood Culture - Preliminary NO GROWTH IN 2 DAYS Resulted 08/06/17 05:41 Blood Peripheral Anaerobic Blood Culture - Preliminary NO GROWTH IN 2 DAYS Resulted Procedures 08/01/2017- Central line placement -R Subclavian 08/02/2017- Intubation 08/04/2017- I&D to L FARRAH . Assessment and Plan Disease Oriented Problem List: (1) HCAP (healthcare-associated pneumonia) (2) Zwgvt-ba-zmguecl kidney injury (3) UTI (urinary tract infection) (4) CKD (chronic kidney disease), stage III (5) Decubital ulcer (6) Alzheimer's dementia (7) HTN (hypertension) (8) CAD (coronary artery disease) Symptom Scale: (1) Shortness of breath 0-10 Scale: Unable to quantify Comment: Multifactorial. Presented with tachypnea, O2 saturation in the 70s. Chest x-ray showing RML, RLL pneumonia. . (2) Debility 0-10 Scale: Unable to quantify Comment: Patient is currently bedridden. . (3) Dysphagia 0-10 Scale: Unable to quantify Comment: Patient currently has a PEG tube, placed in October 2016. Patient was on pured diet and receives supplemental bolus feeds via PEG depending on his mental percentage. . Pertinent Non-Medical Issues Psychosocial:Patient was born and raised in [place], [place]. Patient has been twice and is currently to his second of 52 years. Patient has 3 adult children, 2 from his first marriage and 1 son from his current marriage. 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 Spiritual:- stated that they are spiritual and not yazidi. Legal: Patient has a signed HCS- copy scanned and a Living Will (As stated by -Will bring in Copy) Ethical issues impacting care: None at this time . Important Contacts Spouse- Latosha Ramesh Son- Saulo Garcia [phone] . Prognosis Mr. Holguin is a 86 years old male with a past medical history of dementia, subdural hematoma, Parkinson's, PVD with left AKA, tobacco abuse, BPH, GERD, bed ridden with sacral decubitus ulcers, PEG and history of tracheostomy that was decannulated. Patient was sent from the skilled nursing to the emergency room due to tachypnea, elevated temperature and tachycardia, vomiting. In ER, Tmax of 101.7 degrees F per rectum, heart rate 129. Patient was also hypotensive. Patient was found to have acute kidney injury, RML and RLL pneumonia, and urinary tract infection.Given ongoing multiple comorbidities and current problems, patient remains at high risk for further complications, deterioration and decline. . Code Status: No Code Plan PLAN: Legal decision maker: Patient has a history of dementia and demonstrates inability to make his own medical decisions. Patient has a designated HCS who is his Ally Ramesh. Goals: 08/08/17 1510hrs- Dual visit with Maria Elena Cummings. Met with patient `s in patent`s room. Updated her on patient`s medical status inclusive of diagnostic tests results- (MRI), increase in FIO2, PEEP, hypoglycemic state and overall poor prognosis. Patient`s stated that she knew as soon as she saw patient that "now is the time". states that she does not want him to suffer. Patient hemodynamically unstable, HR 30s, unable to obtain blood pressure and O2 saturation. Patients does not want patient to be resuscitated and does not want any escalation of care, no pressors. made patient DNR. Notified bedside RN. Patient`s allowed to be at bedside with patient. CODE STATUS: Full Code SYMPTOMS: * Shortness of breath: Multifactorial. Presented with tachypnea, O2 saturation in the 70s on admission. Chest x-ray showing RML, RLL pneumonia. Patient was started on antibiotics. Patient's respiratory status declining, increased work of breathing. Chest x-ray today showing worsening bilateral airspace opacities. Patient intubated on mechanical ventilation, FIO2 70%. O2 saturation currently high 90s. Patient on Albuterol Sulfate 2.5 mg Q 2hrs prn. Patient on a bicarbonate continuos infusion-75ml/hr. * Dysphagia: Patient has PEG tube. Was receiving bolus feeds and pureed diet at SNF. May benefit from gta consult. Now has pneumonia. Currently NPO. PEG tube currently clamped, tube feeds on hold as of last night due to leaking around PEG tube. Patient`s weight on Nov 01 2016=75.9kg , August 01, 2017= 65kg. 08/07/17 Total protein 4.7 , albumin 1.0. * Debility: Progressive. Patient is currently bedridden, with dementia, Parkinson's, PVD with left AKA and sacral decubitus ulcers. Patient may not be able to effectively participate in physical therapy given ongoing comorbidities. Patient is at high risk for further deterioration. Patient`s weight on Nov 01 2016=75.9kg , August 01, 2017=65kg. Palliative care will continue to follow the patient during hospital course as condition evolves, to assist patient/decision-maker with understanding of their medical conditions, weighing benefits/burdens of treatment options, for clarification of goals of treatment. Additionally will assist with any symptoms of palliative concern. . Attestation To help prompt me to consider important information that might be impacting today's encounter and assessment, information from prior notes written by myself or my colleagues may have been "brought forward" into today's note. My signature on this note, however, is an attestation that I personally performed the exam, history, and/or decision-making noted today, and, unless otherwise indicated, the interactions with patient, family, and staff as well as the review of records all occurred today. I also attest that the listed assessment and stated plan reflect my best clinical judgment today based on the combination of historical information, prior notes, and today's exam/ interactions. When time spent is documented, it refers only to time spent today by the signer, or if indicated, combined time spent today by collaborating physician/nurse practitioner. Juliano Lawrence Aug 08, 2017 14:51
[2017-08-08 14:52] LABS: DRAW SITE LT RADIAL; FIO2 70 %; NUMBER OF ARTERIAL PUNCTURES 1; STAT NO; ULNAR PULSE PRESENT
--- NOTE | 2017-08-08 15:49 | DEATH SUM ---
Summary Demographics Date Pronounced : Aug 08, 2017 Time Of : 15:23 Pronounced By: Tay Bowman Preliminary Cause of : Cardiac arrest (patient went into asystole, unresponsive with absent heart sounds, no pulse. pronounced and disconnected from ventilator) Tay Bowman MD Aug 08, 2017 15:49
[2017-08-08 16:09] LABS: BICARBONATE 15.2 MEQ/L (21.0-32.0); CALCIUM-PROTEIN CORRECTED 8.7 MG/DL (8.5-10.1); POTASSIUM 6.2 MEQ/L (3.5-5.1); TOTAL BILIRUBIN ADULT 0.9 MG/DL (0.2-1.0)
== END 2017-08-08 15:23 | disposition expired | DRG 870 ==
LOC: NEPE 17:21 → NEDA 20:03 → HIME 23:05
PROVIDERS: ADMIT Emergency Medicine; ATTEND Emergency Medicine
PROC: 05H533Z Insertion of Infusion Device into Right Subclavian Vein, Percutaneous Approach (ICD-10-PCS; principal; 2017-08-01)
PROC: 5A1955Z Respiratory Ventilation, Greater than 96 Consecutive Hours (ICD-10-PCS; 2017-08-02)
PROC: 0BH17EZ Insertion of Endotracheal Airway into Trachea, Via Natural or Artificial Opening (ICD-10-PCS; 2017-08-02)
PROC: 0J9P0ZX Drainage of Left Lower Leg Subcutaneous Tissue and Fascia, Open Approach, Diagnostic (ICD-10-PCS; 2017-08-04)
DX: A41.9 Sepsis, unspecified organism (principal); J96.01 Acute respiratory failure with hypoxia; J69.0 Pneumonitis due to inhalation of food and vomit; K72.00 Acute and subacute hepatic failure without coma; R65.21 Severe sepsis with septic shock; J18.9 Pneumonia, unspecified organism; G92 Toxic encephalopathy; N17.9 Acute kidney failure, unspecified; J44.0 Chronic obstructive pulmonary disease with (acute) lower respiratory infection; L89.153 Pressure ulcer of sacral region, stage 3; E87.2 Acidosis; K51.50 Left sided colitis without complications; N39.0 Urinary tract infection, site not specified; K94.23 Gastrostomy malfunction; M46.28 Osteomyelitis of vertebra, sacral and sacrococcygeal region; R13.10 Dysphagia, unspecified; L89.222 Pressure ulcer of left hip, stage 2; E11.22 Type 2 diabetes mellitus with diabetic chronic kidney disease; E11.649 Type 2 diabetes mellitus with hypoglycemia without coma; G30.9 Alzheimer's disease, unspecified; E11.65 Type 2 diabetes mellitus with hyperglycemia; F02.80 Dementia in other diseases classified elsewhere, unspecified severity, without behavioral disturbance, psychotic disturbance, mood disturbance, and anxiety; N18.3 Chronic kidney disease, stage 3 (moderate); I12.9 Hypertensive chronic kidney disease with stage 1 through stage 4 chronic kidney disease, or unspecified chronic kidney disease; I25.10 Atherosclerotic heart disease of native coronary artery without angina pectoris; I25.2 Old myocardial infarction; Z89.612 Acquired absence of left leg above knee; Z87.442 Personal history of urinary calculi; Z74.01 Bed confinement status; Z87.891 Personal history of nicotine dependence; N40.0 Benign prostatic hyperplasia without lower urinary tract symptoms; I48.0 Paroxysmal atrial fibrillation; K21.0 Gastro-esophageal reflux disease with esophagitis; D50.9 Iron deficiency anemia, unspecified; E55.9 Vitamin D deficiency, unspecified; J30.9 Allergic rhinitis, unspecified; Y95 Nosocomial condition; G20 Parkinson's disease; Z95.5 Presence of coronary angioplasty implant and graft; K57.90 Diverticulosis of intestine, part unspecified, without perforation or abscess without bleeding; R79.89 Other specified abnormal findings of blood chemistry; T87.89 Other complications of amputation stump; Y83.8 Other surgical procedures as the cause of abnormal reaction of the patient, or of later complication, without mention of misadventure at the time of the procedure; Y92.129 Unspecified place in nursing home as the place of occurrence of the external cause; Z51.5 Encounter for palliative care; K59.00 Constipation, unspecified; R32 Unspecified urinary incontinence; Z87.440 Personal history of urinary (tract) infections; R11.10 Vomiting, unspecified; Z66 Do not resuscitate; I46.9 Cardiac arrest, cause unspecified
CPT/HCPCS: 31500; 36556; 36600; 71010; 72197; 74000; 74177; 76937; 80048; 80053; 80074; 80076; 81001; 82550; 82552; 82805; 82947; 82948; 83520; 83605; 83690; 83735; 83880; 84100; 84132; 84155; 84484; 85007; 85025; 85027; 85610; 85730; 86038; 86255; 87040; 87070; 87077; 87086; 87186; 87205; 87449; 87493; 87641; 87804; 93005; 93306; 94002; 94003; 94640; 94664; 95819; 96365; 96375; A9579; J0330; J0743; J0878; J1160; J1450; J1644; J1815; J1940; J2250; J2765; J3010; J3370; J3475; J3480; J7030; J7050; J7613; Q9963; Q9967